=== PATIENT | female | born 1970 | race Caucasian/White ===

== ENCOUNTER → 2017-11-06 10:13 | Outpatient (CLI) | payer BC, SELFPAY ==
--- NOTE | 2017-11-06 10:17 | BI_ITS ---
MAMMOGRAPHY - BILATERAL SCREENING REASON FOR EXAM: Female, 47 years old. Routine annual screening examination. PERTINENT HISTORY: Non-contributory. TECHNIQUE: Digital bilateral breast brandon (3D mammographic acquisition) in the CC and MLO projections. 2-D mediolateral oblique (MLO) and craniocaudad (CC) views of both breasts were obtained. CAD: Full Field Digital Mammography with Computer Added Detection was performed. COMPARISON: Comparison is made with prior examination dated November 22, 2014 and April 04, 2012. FINDINGS: Breast Composition: The breasts are almost entirely fatty. There are no dominant masses or suspicious calcifications. Stable small benign-appearing bilateral axillary lymph nodes. No other significant abnormalities are identified. There has been no significant change since the prior study. BI/SCREENING MAMM (CAD), BILAT IMPRESSION: Stable bilateral screening mammogram. Yearly follow-up mammogram recommended. (A) ASSESSMENT CATEGORY: BIRADS Category 2: Benign. A letter regarding these results will be sent to the patient by the facility within 30 days. Approximately 10% of breast cancers are not detected by mammography. A normal mammogram should not delay biopsy of a clinically suspicious abnormality. [id number] Electronically Signed: Todd Conrad MD at 13:26 EDT Tel [phone], Service support ,
== END ==
PROVIDERS: Family Provider Nurse Practitioner Family; PCP Nurse Practitioner Family; Visit Provider Nurse Practitioner Family
DX: Z12.31 Encounter for screening mammogram for malignant neoplasm of breast (principal)
CPT/HCPCS: 77063; 77067

== ENCOUNTER → 2019-04-15 14:35 | Outpatient (CLI) | payer BC, SELFPAY ==
--- NOTE | 2019-04-15 14:41 | BI_ITS ---
MAMMOGRAPHY - BILATERAL SCREENING REASON FOR EXAM: Female, 49 years old. Routine annual screening examination. PERTINENT HISTORY: Non-contributory. TECHNIQUE: Digital bilateral breast sheila (3D mammographic acquisition) in the CC and MLO projections. 2-D mediolateral oblique (MLO) and craniocaudad (CC) views of both breasts were obtained. CAD: Full Field Digital Mammography with Computer Added Detection was performed. COMPARISON: Comparison is made with prior examination dated November 06, 2017 and November 22, 2014. FINDINGS: Breast Composition: There are scattered areas of fibroglandular density. There are no dominant masses or suspicious calcifications. Canal is evidence of asymmetry of the breast density in the upper outer quadrant of the left breast as compared to the right side. The patient has noticed changes to the skin at that site. Correlation with ultrasound is recommended. Stable benign-appearing bilateral axillary lymph nodes. No other significant abnormalities are identified. BI/SCREEN MAMM (CAD) W/SHEILA BILAT IMPRESSION: Asymmetrical density is now seen in the upper outer quadrant of the left breast as described. Correlation with ultrasound is recommended for further evaluation. ASSESSMENT CATEGORY: BIRADS Category 0: Incomplete. Need additional imaging evaluation. A letter regarding these results will be sent to the patient by the facility within 30 days. Approximately 10% of breast cancers are not detected by mammography. A normal mammogram should not delay biopsy of a clinically suspicious abnormality. [id number] Electronically Signed: Todd Conrad, at 12:05 EST , Service support ,
== END ==
PROVIDERS: PCP Nurse Practitioner Family; Referring Provider Nurse Practitioner Family; Visit Provider Nurse Practitioner Family
DX: Z12.31 Encounter for screening mammogram for malignant neoplasm of breast (principal)
CPT/HCPCS: 77063; 77067

== ENCOUNTER → 2019-04-17 14:09 | Outpatient (CLI) | payer BC, SELFPAY ==
--- NOTE | 2019-04-17 15:06 | US_ITS ---
STUDY: ULTRASOUND BREAST - LEFT REASON FOR EXAM: Female, 49 years old. TECHNIQUE: Axial and longitudinal images of the LEFT breast were performed with a high resolution ultrasound transducer. # OF IMAGES: 48 COMPARISON: Previously mammogram obtained on 04/15/2019 FINDINGS: LEFT Breast: A targeted left breast mammogram was performed of the superior lateral aspect of the left breast. Comparison is made to the recent mammogram obtained on 04/15/2019. Normal breast parenchyma is identified on this targeted left breast ultrasound. Some scattered benign-appearing nondilated ducts are seen in the superior lateral aspect of the left breast. No shadowing masses or lesions are seen. US/Breast Limited Unilateral IMPRESSION: Normal targeted left breast ultrasound ASSESSMENT CATEGORY: FINAL ASSESSMENT: BI-RAD CATEGORY I (NEGATIVE) YEARLY MAMMOGRAPHY RECOMMENDED Electronically Signed: Dale De Oliveira, at 9:04 EST Tel , Service support ,
== END ==
PROVIDERS: PCP Nurse Practitioner Family; Referring Provider Nurse Practitioner Family; Visit Provider Nurse Practitioner Family
DX: N64.59 Other signs and symptoms in breast (principal)
CPT/HCPCS: 76641; 76642

== ENCOUNTER → 2021-02-20 | Outpatient (CLI) | payer BC, SELFPAY ==
[2021-02-20 12:31] LABS: Erythrocyte Sedimentation Rate 5 mm/hr (0-30)
[2021-02-20 12:38] LABS: CPK Total, Creatine Kinase 68 U/L (26-192); CRP, High Sensitivity Cardiac 0.95 mg/L; Troponin-I HS 6 pg/mL (3.0-54.0)
[2021-02-22 09:45] LABS: Myoglobin, Serum < 21 ng/mL (25-58)
== END | disposition home or self-care (01) ==
LOC: LABSPEC 12:06
PROVIDERS: Visit Provider Nurse Practitioner
DX: R07.89 Other chest pain (principal)
CPT/HCPCS: 82550; 83874; 84484; 85652; 86141

== ENCOUNTER → 2022-07-12 | Outpatient (CLI) | payer BC, SELFPAY ==
--- NOTE | 2022-07-12 08:23 | BI_ITS ---
MAMMOGRAPHY - BILATERAL SCREENING REASON FOR EXAM: Female, 52 years old. Routine annual screening examination. PERTINENT HISTORY: Non-contributory. TECHNIQUE: Digital bilateral breast sheila (3D mammographic acquisition) in the CC and MLO projections. 2-D mediolateral oblique (MLO) and craniocaudad (CC) views of both breasts were obtained. CAD: Full Field Digital Mammography with Computer Added Detection was performed. COMPARISON: Comparison is made with prior examination dated April 15, 2019 and November 06, 2017. FINDINGS: Breast Composition: There are scattered areas of fibroglandular density. There are no dominant masses or suspicious calcifications. Stable asymmetry of breast tissue with more breast tissue is seen in the upper-outer quadrant left breast as compared to the right side. Stable small benign-appearing bilateral axillary lymph nodes. No other significant abnormalities are identified. There has been no significant change since the prior study. BI/SCRN MAMM (CAD)W/SHEILA BILAT IMPRESSION: Stable bilateral screening mammogram. Yearly follow-up mammogram recommended. (A) ASSESSMENT CATEGORY: BIRADS Category 2: Benign. A letter regarding these results will be sent to the patient by the facility within 30 days. Approximately 10% of breast cancers are not detected by mammography. A normal mammogram should not delay biopsy of a clinically suspicious abnormality. [id number] Electronically Signed: Todd Conrad MD at 9:35 EDT ,
== END | disposition home or self-care (01) ==
LOC: OPBI 08:21
PROVIDERS: PCP Nurse Practitioner Family; Referring Provider Nurse Practitioner Family; Visit Provider Nurse Practitioner Family
DX: Z12.31 Encounter for screening mammogram for malignant neoplasm of breast (principal)
CPT/HCPCS: 77063; 77067

== ENCOUNTER → 2023-05-27 | Outpatient (CLI) | payer BC, SELFPAY ==
--- NOTE | 2023-05-27 06:41 | MRI_ITS ---
HISTORY: worsening headaches. TECHNIQUE: Multiplanar and multisequence MR images of the brain were obtained before and after the intravenous administration of 20 mL Clariscan. 345 images. COMPARISON: None. FINDINGS: BRAIN PARENCHYMA: No significant signal abnormality or enhancing lesion in the brain parenchyma. No abnormal focus of restricted diffusion to suggest acute infarct. No acute intracranial hemorrhage identified. CSF SPACES: Cerebral ventricles, cortical sulci, and other extra-axial CSF spaces within normal limits in size for age. No significant midline shift or other mass effect.No extra-axial fluid collection. VASCULAR SYSTEM: Major intracranial flow voids are maintained. PARANASAL SINUSES AND MASTOID AIR CELLS: No significant air fluid levels. ORBITS: Symmetric contents. MRI/Brain W/WO Contrast IMPRESSION: Unremarkable examination. No evidence for significant signal abnormality in the brain or enhancing intracranial mass. Electronically Signed: Fern Ochoa MD at 9:49 EDT ,
--- NOTE | 2023-05-27 06:41 | MRI_ITS ---
HISTORY: cervical stenosis of spine. TECHNIQUE: Multiplanar and multisequence MR images of the cervical spine were obtained without contrast. 257 images. COMPARISON: None. FINDINGS: VERTEBRAE: Vertebral body heights maintained. Mild degenerative bone marrow endplate changes of C5-6 and C6-7. VERTEBRAL ALIGNMENT: Straightening of the cervical lordosis without anterior or posterior subluxation. SPINAL CORD: Cervical cord signal and morphology within normal limits. SOFT TISSUES: No prevertebral fluid collection. INTERVERTEBRAL DISCS: C2-3, C3-4: No significant posterior protrusion, central canal stenosis, or foraminal narrowing. C4-5: Mild central disc protrusion resulting in minimal narrowing of the thecal sac . No significant foraminal narrowing. C5-6, C6-7: Mild posterior disc bulge osteophyte complexes resulting in mild central canal stenosis. Left paracentral component at C6-7 resulting in left traversing nerve root abutment. No significant foraminal narrowing. C7-T1: No significant posterior disc protrusion, central canal stenosis, or foraminal narrowing. MRI/Spine Cervical (Routine) IMPRESSION: Mild degenerative disc disease of C5-6 and C6-7 resulting in mild spinal canal stenosis. Electronically Signed: Fern Ochoa MD at 9:19 EDT ,
[2023-05-27 07:15] LABS: CREATININE FINGERSTICK < 1.0 mg/dL (0.55-1.02); EGFR FINGERSTICK > 60.0000 mL/min (>60)
== END | disposition home or self-care (01) ==
PROVIDERS: PCP Internal Medicine; Referring Provider Internal Medicine; Visit Provider Internal Medicine
DX: R51.9 Headache, unspecified (principal); M48.02 Spinal stenosis, cervical region
CPT/HCPCS: 70553; 72141; A9575

== ENCOUNTER 2024-01-30 11:21 | Outpatient (RCR) | payer BC, SELFPAY ==
--- NOTE | 2024-01-30 12:11 | HP.PTEVAL_ITS ---
Patient's Visit Information Visit Information Visit Information: DIANA LEE is a 53 year old F referred to Physical Therapy by Kirstin Rg, [facility] with a diagnosis of vertigo. Date of Evaluation: 01/30/24 Physical Therapist: Claude Rg, DPT, OCS, CSCS Visit Plan Frequency: 1-2x /Week Duration: 4-6 Weeks Plan: 1-2x/week for 2-6 weeks as needed for : IE R dakota adn educated on head turns 10x and head nods 10x 6x/day Next session progress head movements, consider VOR, check R positional and consider BD. Subjective Subjective: I am dizzy. Started taking ozempic for weight loss and had allergic reaction and ended up in ER 3x. Has been dizzy for 8 days insidiously. Woke up that way. Feels goofy in head and cannot think clearly. Spins, no spinning if keeps head still. Wooshes of dizzyness with head movement. Feels off kilter. No falls, pass out 3x with the ozempic possibly being the cause with allergy. Sleep is not a problem, all she wants to do is sleep. 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 Misses some days due to not feeling good with head moving around. Basic ADLs done I but can be miserable. No aD needed but might have at first. 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 Overall slightly better than 8 days ago, still cannot drive. Objective Objective: Walks slow and hesitant back to PT area, hesitant to move head. cervical aROm is hesitant but able without pain(had recent neck injections) UE AROm WFL adn sensation wNL to gross light touch. - B hallpike juliette and roll test, but asymmetrically dizzy with head to R side, treateed with R modified dakota. Oculomotr: no nystagmus with gaze or head shake. - skew eye deviation - ocular tilt slight + R head thrust. head shake does make dizzy but worse with head nods. pursuit and saccades are good. VOR is symptomatic briefly H and V. Balance/Special Test Scores Functional Gait Assessment Score: 26 % Disability: 13.3400 CATSIB Score (Max score 120 seconds): 98 Dizziness Score: 86 Goals Goal 1:: Pt feel dizziness 90% better and manageable Goal Time Frame: 4-6 Weeks Goal 2:: 30/30 FGA Goal Time Frame: 4-6 Weeks Goal 3:: Lie down in bed without symptoms Goal Time Frame: 4-6 Weeks Goal 4:: DHI score 10 or less Goal Time Frame: 4-6 Weeks Rehabilitation Potential Physical Therapy Diagnosis: dizziness with position changes of head limiting function. Rehabilitation Potential: Good Anticipated Interventions Patient/Client Instruction: Educate patient on: Condition, Plan of Care and Risk Factors For the Purpose of:: To improve nutrient delivery to tissue, To improve muscle performance and motor function and To increase tolerance to activity/condition/position Therapeutic Exercise to Include: Balance training Comment: adaptation and positional exercises For the Purpose of:: To increase ROM, To improve nutrient delivery to tissue and To increase tolerance to activity/condition/position Text: Thank you for the opportunity to evaluate your patient. For Medicare and Medicare HMO plans, please review the plan of care and approve it. It will need to be FAXED BACK to us at [phone] for Medicare purposes. For Medicare only, by signing this I certify the plan of care. Please let me know if there are questions or concerns regarding this plan of care. Physician Signature:___ Date:
--- NOTE | 2024-04-29 07:59 | HP.PT.NRP ---
Patient Information Patient Information: DIANA LEE was seen in my office for initial evaluation on 01/30/24. The following Plan of Care was established for this patient: POC Established Initial Frequency: 1-2x /Week Initial Duration: 4-6 Weeks Anticipated Interventions Patient/Client Instruction: Educate patient on: Condition, Plan of Care and Risk Factors For the Purpose of:: To improve nutrient delivery to tissue, To improve muscle performance and motor function and To increase tolerance to activity/condition/position Therapeutic Exercise to Include: Balance training For the Purpose of:: To increase ROM, To improve nutrient delivery to tissue and To increase tolerance to activity/condition/position Last Seen Last Seen: This patient was last seen in our office 01/30/24. Pertinent comments regarding their Physical therapy will appear below: Pt seen for IE and treatment and POC established. Did not return for any further visits after initial positional treatment. At this point, it has been over 3 months and I will discontinue due to nonattendance. At this point I will be discontinuing this patient from physical therapy. I would be happy to see this patient again in the future if found appropriate by the physician. Thank you! Claude Rg, DPT, OCS, CSCS Balance/Gait/Functional tests Balance/Special Test Scores Functional Gait Assessment Score: 26 % Disability: 13.3400 CATSIB Score (Max score 120 seconds): 98 Dizziness Score: 86
== END 2024-01-30 19:00 | disposition home or self-care (01) ==
LOC: PT 11:21
PROVIDERS: PCP Internal Medicine; Referring Provider Nurse Practitioner Family; Visit Provider Nurse Practitioner Family
DX: H81.399 Other peripheral vertigo, unspecified ear (principal); R42 Dizziness and giddiness
CPT/HCPCS: 97161

== ENCOUNTER 2024-11-19 17:17 | Emergency (ER) | payer BC, SELFPAY ==
[2024-11-19 17:20] VITALS: BP 159/94; PULSE 89; RESP 18; TEMP 36.9; O2SAT 100; BMI 38.0
[2024-11-19] MEDS: 0.9% Normal Saline (1000mL) 1,000 ML 1000 ML IV (18:12)
--- OUTSIDE RECORDS SUMMARY | 2024-11-19 18:12 | XMS RPT_ITS | CCD ---
Author Organization [facility] Care Team Providers Care Cleaner Touch Up Worker Name Role Phone Anca Villatoro CNP Unavailable DO NOT USE Unavailable Doug Huffman MD Unavailable Stephy Wilson Unavailable Isaias Holliday MD Unavailable Sandee Osborne LPN Unavailable Unavailable Unavailable Unavailable Anca Villatoro Unavailable Howard Sorensen LPN Unavailable Unavailable Kirstin Rg CNP Unavailable [phone] Emerita OMER, Kayela Unavailable Unavailable Paris MESSER, Mohinedr Gil Unavailable [phone] Kirstin Rg CNP Unavailable Hunter MESSER, Omar Unavailable Unavailable Unavailable Ashtyn Trammell LPN Unavailable Unavailable Doug Huffman MD Unavailable Kirstin Rg CNP Attending Unavailable Anca Villatoro Referring Unavailable Kirstin Rg CNP Consulting Unavailable Shraddha Holley DO Unavailable ANTONIETTA Rg Primary Care Provider ANTONIETTA Rg Referring Provider [phone] ANTONIETTA Lockwood Attending Provider Jacob SIMMONS, COREY-Dimitrios OMER Primary Care Provider NGOZI LLANES Attending Unavailable DIMITRIOS JAMES Primary Care Unavailable LUCIE PARTIDA DO Admitting Unavailable DIDUR, LUCIE DO Attending Unavailable LUCIE PARTIDA DO Primary Care Unavailable COLE PUGA Admitting Unavailable COLE PUGA Attending Unavailable COLE PUGA Primary Care Unavailable MANDY BELL Consulting Unavailable PROVIDER, UNKNOWN Consulting Unavailable PROVIDER, UNKNOWN Consulting Unavailable PROVIDER, UNKNOWN Consulting Unavailable LUCIE PARTIDA DO Admitting Unavailable LUCIE PARTIDA DO Attending Unavailable LUCIE PARTIDA DO Primary Care Unavailable MANDY BELL Consulting Unavailable PROVIDER, UNKNOWN Consulting Unavailable PROVIDER, UNKNOWN Consulting Unavailable PROVIDER, UNKNOWN Consulting Unavailable Isael James Attending Unavailable Shraddha Holley Primary Care Unavailable Shraddha Holley Referring Unavailable Kirstin Rg Referring Unavailable Shraddha Holley Primary Care Unavailable Kirstin Rg Attending Unavailable Allergies Allergy Classification Reported Allergen(s) Allergy Type Date of Onset Reaction(s) Facility (1 source) semaglutide Drug allergy (disorder) 11-16-2024 [facility] Medications Current Medications Medication Drug Class(es) Dates Sig (Normalized) Sig (Original) amLODIPine 2.5 mg oral tablet (3 sources) Dihydropyridine Calcium Channel Dionisio Start: 04-20-2023 Amlodipine Active MG PO April 20, 2023 1:00am Start: 04-03-2023 take 1 tablet by pinky th once daily amLODIPine (Norvasc) 2.5 mg tablet Take 1 tablet (2.5 mg) by mouth once daily. 04/03/2023 Active Start: 09-28-2022 take 1 tablet by pinky th once daily amLODIPine 2.5 mg oral tablet 1 Tablet daily for 30 days Quantity: 30 {Tablet} Refills: 3 Ordered: 28-Sep-2022 Kirstin Rg CNP Start : 28-Sep-2022 Active cholecalciferol 0.125 mg oral capsule (20 sources) Vitamin D Start: 04-20-2023 take 125 ug by mouth once daily Cholecalciferol (Vitamin D3) Active 125 MCG PO DAILY April 20, 2023 1:00am take 1 tablet by mouth every wee k cholecalciferol (Vitamin D-3) 5,000 Units tablet Take 1 tablet (5,000 Units) by mouth once a week. Active take 1 tablet by mouth once vaibhav y VITAMIN D3, 1000UNIT (Oral Tablet) 1 qd (1000 UNIT) Active take 1 capsule by mouth once pj ly D3 SUPER STRENGTH, 2000UNIT (Oral Capsule) 1 qd (2000 UNIT) Inactive escitalopram 20 mg oral tablet (20 sources) Serotonin Reuptake Inhibitor Start: 04-20-2023 Escitalopram Oxalate Active MG PO April 20, 2023 1:00am Start: 02-23-2022 take 1 tablet by pinky th once daily escitalopram oxalate 20 mg oral tablet 1 Tablet daily for 0 days Quantity: 90 {Tablet} Refills: 1 Ordered: 23-Feb-2022 Shraddha Holley DO Leydi Shraddha SADLER Start : 23-Feb-2022 Active Start: 03-06-2021 take 1 tablet by pinky th once daily Escitalopram Oxalate 20 MG Oral Tablet 1 Tablet daily for 0 days Quantity: 90 {Tablet} Refills: 1 Ordered: 06-Mar-2021 Anca Villatoro Start : 06-Mar-2021 Active estradiol 1 mg oral tablet (7 sources) Estrogen Start: 04-20-2023 Estradiol Acti ve MG PO April 20, 2023 1:00am Start: 08-10-2022 take 1 tablet by pinky once daily estradioL 1 mg oral tablet 1 Tablet daily for 0 days Quantity: 30 {Tablet} Refills: 5 Ordered: 10-Aug-2022 Ashtyn Trammell LPN Start : 10-Aug-2022 Active End: 08-10-2022 estradioL 0.01% (0.1 mg/gram ) vaginal cream twice weekly (0.01 % (0.1 mg/) End : 10-Aug-2022 Discontinued Lactobacillus Combination No.9 (Adult 50 Plus Probiotic) 4 billion cell capsule (1 source) Start: 04-20-2023 take 4 capsules by mouth once daily Lactobacillus Combination No.9 (Adult 50 Plus Probiotic) 4 billion cell capsule Active 4000 MMU CELLS PO DAILY April 20, 2023 1:00am administer with a meal levothyroxine sodium 0.025 mg oral tablet (20 sources) l-Thyrox ine Start: 04-20-2023 Levothyroxine Active MCG PO April 20, 2023 1:00am Start: 09-28-2022 take 1 capsule by mo [facility] once daily levothyroxine 25 mcg oral capsule 1 (one) capsule daily for 90 days Quantity: 90 {Capsule} Refills: 3 Ordered: 28-Sep-2022 Kirstin Rg CNP Start : 28-Sep-2022 Active Start: 09-26-2022 take 1 capsule by mo [facility] once daily levothyroxine 25 mcg oral capsule 1 (one) capsule daily for 30 days Quantity: 30 {Capsule} Refills: 0 Ordered: 26-Sep-2022 Kirstin Rg CNP Start : 26-Sep-2022 Active Start: 07-09-2022 take 1 capsule by [facility] once daily levothyroxine 25 mcg oral capsule 1 (one) capsule daily for 30 days Quantity: 30 {Capsule} Refills: 2 Ordered: 09-Jul-2022 Slarb THRESHING DEPARTMENT SUPERVISOR, Ashtyn Start : 09-Jul-2022 Active Start: 10-06-2021 End: 05-11-2022 take 1 tablet by mouth once daily Euthyrox 125 mcg oral tablet 1 (one) Tablet ONCE A DAY for 90 days Quantity: 90 {Tablet} Refills: 0 Ordered: 11-May-2022 Slarb THRESHING DEPARTMENT SUPERVISOR, Ashtyn Start : 06-Oct-2021 End : 11-May-2022 Inactive Start: 03-06-2021 End: 06-04-2021 take 1 tablet by mouth once daily Euthyrox 125 MCG Oral Tablet 1 (one) Tablet ONCE A DAY for 90 days Quantity: 90 {Tablet} Refills: 0 Ordered: 06-Mar-2021 LauraAnca dawn Start : 06-Mar-2021 End : 04-Jun-2021 Inactive Start: 09-12-2012 End: 09-12-2012 take 1 tablet by mouth once daily SYNTHROID, 75MCG (Oral Tablet) 1 Tablet daily for 0 days Quantity: 30 {Tablet} Refills: 6 Ordered: 12-Sep-2012 Mohinder Wetzel MD Start : 12-Sep-2012 End : 12-Sep-2012 Discontinued levothyroxine (S ynthroid, Levoxyl) 125 mcg tablet once every 24 hours. Active Lisinopril (6 sources) Angiotensin Converting Enzyme Inhibitor Start: 04-20-2023 Lisinopril Active MG PO April 20, 2023 1:00am Start: 04-03-2023 take 1 tablet by pinky once daily lisinopril 40 mg tablet Take 1 tablet (40 mg) by mouth once daily. 04/03/2023 Active Start: 08-10-2022 take 1 tablet by pinky th once daily lisinopriL 40 mg oral tablet 1 Tablet daily for 0 days Quantity: 30 {Tablet} Refills: 5 Ordered: 10-Aug-2022 Kirstin Rg CNP Start : 10-Aug-2022 Active Comments: new dose Start: 07-06-2022 take 1 tablet by pinky th once daily lisinopriL 20 mg oral tablet 1 Tablet daily for 0 days Quantity: 30 {Tablet} Refills: 3 Ordered: 06-Jul-2022 Kirstin Rg CNP Start : 06-Jul-2022 Active Comment on above: new dose multivitamin with minerals iron-free (Complete MV Adult 50 Plus) (1 source) multivitamin wit h minerals iron-free (Complete MV Adult 50 Plus) once every 24 hours. Active tiZANidine 4 mg oral tablet (1 source) Central alpha-2 Adrenergic Agonist Start: 05-16-2023 tiZANidine (Zanaflex) 4 mg tablet TAKE 1/2 (ONE-HALF) TO 1 & 1/2 (ONE & ONE-HALF) TABLETS BY MOUTH THREE TIMES DAILY NEEDED FOR MUSCLE SPASM, TIGHTNESS OR HEADACHE 05/16/2023 Active Completed/Discontinued Medications Medication Drug Class(es) Dates Sig (Normalized) Sig (Original) acetaminophen 325 mg oral tablet (19 sources) Start: 09-14-2013 End: 05-17-2014 take 1 tablet by mouth every eight hours as needed TYLENOL, 325MG (Oral Tablet) 1 (one) Tablet Tablet q8hrs prn for 0 days Quantity: 30 {Tablet} Refills: 0 Ordered: 17-May-2014 PETE Del Valle LPN Start : 14-Sep-2013 End : 17-May-2014 Inactive acetaminophen 325 mg / butalbital 50 mg / caffeine 40 mg oral tablet (20 sources) Barbiturate, Central Nervous System Stimulant, Methylxanthine Start: 05-11-2022 butalbital-aceta minophen-caff 50-325-40 mg oral tablet uad Tablet prn as directed for migaine for 0 days Quantity: 30 {Tablet} Refills: 1 Ordered: 18-May-2022 Kirstin Rg CNP Start : 18-May-2022 Active Comments: thirty Start: 12-26-2020 Butalbital-APA P-Caffeine 50-325-40 MG Oral Tablet uad Tablet prn as directed for migaine for 0 days Quantity: 30 {Tablet} Refills: 1 Ordered: 26-Dec-2020 Anca Villatoro Start : 26-Dec-2020 Active Comments: thirty Start: 02-25-2013 Butalbital-[place] taminophen-Caff Active 1 TABLET PO NEEDED February 25, 2013 1:00am Start: 08-08-2012 End: 01-26-2013 take 1 tablet by mouth once as needed FIORICET, 50-325-40MG (Oral Tablet) 1 Tablet with headache prn for 0 days Quantity: 20 {Tablet} Refills: 0 Ordered: 08-Aug-2012 Mohinder Wetzel MD Start : 08-Aug-2012 End : 26-Jan-2013 Discontinued Comments: This order discontinued per [facility]. Comment on above: thirty This order discontin ued per [employer]. [id number] 200 actuat albuterol 0.09 mg/actuat metered dose inhaler (19 sources) beta2-Adrenergic Agonist Start: 021 End: 022 take 2 puff(s) by inhalation three times daily as needed ProAir HFA 108 (90 Base) MCG/ACT Inhalation Aerosol Solution 2 (two) Puff tid prn for 0 days Quantity: 1 {Each} Refills: 0 Ordered: 29-Aug-2021 Emerita OMER Cornelialester Start : 20-Feb-2021 End : 29-Aug-2021 Inactive ALPRAZolam 0.5 mg oral tablet (19 sources) Benzodiazepine XANAX, 0.5MG (Oral Tablet) 1 prn for panic attack/anxiety (0.5 MG) Inactive amoxicillin 875 mg / clavulanate 125 mg oral tablet (19 sources) Penicillin-class Antibacterial Start: 014 End: 015 take 1 tablet by mouth twice daily AUGMENTIN, 875-125MG (Oral Tablet) 1 Tablet Tablet bid for 0 days Quantity: 20 {Tablet} Refills: 0 Ordered: 20-Apr-2014 Cari Ochoa CMA Start : 17-Sep-2013 End : 20-Apr-2014 Inactive ascorbic acid 1000 mg extended release oral tablet (19 sources) Vitamin C take 1 tablet by mouth once daily VITAMIN C ER, 1000MG (Oral Tablet Extended Release) 1 qd (1000 MG) Inactive B COMPLEX 100 TR (Oral Tablet Extended Release) (19 sources) take 1 tablet by mouth once daily B COMPLEX 100 TR (Oral Tablet Extended Release) 1 qd Inactive bifidobacterium infantis 4 mg oral capsule (19 sources) take 1 capsule by mouth once daily ALIGN (Oral Capsule) 1 qd Inactive busPIRone hydrochloride 5 mg oral tablet (20 sources) Start: 014 End: 015 take 0.5 tablet by mouth in the morning, then take 1 tablet by mouth at bedtime BUSPIRONE HCL, 5MG (Oral Tablet) uad Tablet Tablet 1/2 in am 1 at hs for 0 days Quantity: 30 {Tablet} Refills: 0 Ordered: 17-May-2014 PETE Del Valle LPN Start : 19-Mar-2013 End : 17-May-2014 Inactive Start: 01-26-2013 End: 02-27-2013 take 1 tablet by mouth twice daily, then take 1 tablet by mouth twice daily BUSPIRONE HCL, 10MG (Oral Tablet) 1 Tablet 1/2 bid for 1 week than 1 bid for 0 days Quantity: 60 {Tablet} Refills: 5 Ordered: 27-Feb-2013 PETE Del Valle LPN Start : 26-Jan-2013 End : 27-Feb-2013 Inactive Cholestol Gold (8 sources) Cholestol Gold 2 qd Inactive ciprofloxacin 500 mg oral tablet (20 sources) Quinolone Antimicrobial Start: 2 End: 2 take 1 tablet by mouth twice daily Cipro 500 MG Oral Tablet 1 (one) Tablet bid for 0 days Quantity: 20 {Tablet} Refills: 0 Ordered: 06-Oct-2021 Howard Sorensen LPN Start : 29-Aug-2021 End : 06-Oct-2021 Inactive Start: 09-14-2013 End: 09-24-2013 CIPROFLOXACIN HCL, 0.2% (Kristen c Solution) 3 (three) Metric Drop bid for 10 days Quantity: 1 {Bottle} Refills: 0 Ordered: 14-Sep-2013 Anca Villatoro Start : 14-Sep-2013 End : 24-Sep-2013 Inactive COq10 (1 source) COq10 Active cyclobenzaprine hydrochloride 10 mg oral tablet (20 sources) Muscle Relaxant Start: 03-06-2021 End: 10-06-2021 Cyclobenzaprine HCl 10 MG Oral Tablet 1 (one) Tablet at night for 0 days Quantity: 30 {Tablet} Refills: 4 Ordered: 06-Oct-2021 Howard Sorensen LPN Start : 06-Mar-2021 End : 06-Oct-2021 Inactive Start: 05-04-2013 End: 05-17-2014 take 1 tablet by mouth three times daily CYCLOBENZAPRINE HCL, 5MG (Oral Tablet) 1 (one) Tablet Tablet tid for 0 days Quantity: 30 {Tablet} Refills: 0 Ordered: 17-May-2014 PETE Del Valle LPN Start : 04-May-2013 End : 17-May-2014 Inactive Comments: 05-04-13 called to [facility] ph[facility] Comment on above: 05-04-13 called to [facility] A[facility] phan dexamethasone 1 mg oral tablet (19 sources) Corticosteroid Start: 2020 End: 2020 take 1 tablet by mouth every week Dexamethasone 1 MG Oral Tablet 1 (one) Tablet once a week for 0 days Quantity: 1 {Tablet} Refills: 0 Ordered: 20-Feb-2021 Radha Rousseau MA Start : 06-Jan-2021 End : 20-Feb-2021 Inactive doxycycline hyclate 100 mg oral capsule (1 source) Tetracycline-class Drug Start: 2023 End: 2023 take 100 mg by mouth twice daily Doxycycline Hyclate Discontinued 100 MG PO TWICE A DAY 14 12April 20, 2023 1:00am April 30, 2023 1:04am glutathione 50 mg oral tablet (19 sources) take 1 tablet by mouth twice daily GLUTATHIONE, 50MG (Oral Tablet) 1 bid (50 MG) Inactive hydrALAZINE hydrochloride 10 mg oral tablet (3 sources) Arteriolar Vasodilator Start: 2022 take 1 tablet by mouth every six hours as needed hydrALAZINE 10 mg oral tablet 1 (one) tablet every 6 hours as needed elevated blood pressure for 0 days Quantity: 30 {Tablet} Refills: 0 Ordered: 10-Aug-2022 Ashtyn Trammell LPN Start : 10-Aug-2022 Active Comments: Medication taken as needed. Comment on above: Medication taken as needed. hydroCHLOROthiazide 25 mg oral tablet (20 sources) Thiazide Diuretic Start: 2013 End: 2023 take 1 tablet by mouth once daily HYDROCHLOROTHIAZIDE, 25MG (Oral Tablet) 1 Tablet qd for 0 days Quantity: 90 {Tablet} Refills: 0 Ordered: 16-Aug-2014 PETE Del Valle LPN Start : 06-Jul-2014 End : 16-Aug-2014 Inactive krill oil 300 mg oral capsule (19 sources) take 1 capsule by mouth once daily KRILL OIL OMEGA-3, 300MG (Oral Capsule) 1 qd (300 MG) Inactive L-GLUTAMINE (Powder) (19 sources) L-GLUTAMINE (Pow treasure) 5 grams qd at lunch Inactive ammonium lactate 120 mg/ml topical lotion (19 sources) Start: 2012 End: 2012 LAC-HYDRIN, 12% (External Lotion) 1 Lotion affected area daily for 0 days Quantity: 1 {Lotion} Refills: 0 Ordered: 24-Oct-2012 PETE Del Valle LPN Start : 14-Apr-2012 End : 24-Oct-2012 Inactive meloxicam 15 mg oral tablet (19 sources) Nonsteroidal Anti-inflammatory Drug Start: 2013 End: 2013 take 1 tablet by mouth once daily MOBIC, 15MG (Oral Tablet) 1 (one) Tablet daily for 0 days Quantity: 30 {Tablet} Refills: 0 Ordered: 06-Aug-2013 PETE Del Valle LPN Start : 28-Apr-2013 End : 06-Aug-2013 Inactive OMEGA 3-6-9 COMPLEX (Oral Capsule) (19 sources) take 1 capsule by mouth once daily OMEGA 3-6-9 COMPLEX (Oral Capsule) 1 qd Inactive omeprazole 20 mg delayed release oral tablet (19 sources) Proton Pump Inhibitor Start: 2020 End: 2021 take 1 tablet by mouth once daily Omeprazole 20 MG Oral Tablet Delayed Release 1 (one) Tablet daily for 0 days Quantity: 30 {Tablet} Refills: 0 Ordered: 06-Oct-2021 Howard Sorensen LPN Start : 20-Feb-2021 End : 06-Oct-2021 Inactive ondansetron 4 mg oral tablet (1 source) Serotonin-3 Receptor Antagonist Start: 2022 take 1 tablet by mouth twice daily as needed for nausea ondansetron HCL 4 mg oral tablet 1 (one) tablet twice daily as needed for nausea for 0 days Quantity: 30 {Tablet} Refills: 1 Ordered: 28-Sep-2022 Arcenio NEGRAKirstin Start : 28-Sep-2022 Active Comments: Medication taken as needed. Comment on above: Medication taken as needed. phenazopyridine hydrochloride 99.5 mg oral tablet (15 sources) take 1 mg by mouth once daily Phenazopyridine HCl 99.5 MG Oral Tablet Once a day. (99.5 MG) Inactive pramipexole dihydrochloride 0.125 mg oral tablet (20 sources) Nonergot Dopamine Agonist Start: 2020 End: 2021 take 1 tablet by mouth once daily at bedtime Pramipexole Dihydrochloride 0.125 MG Oral Tablet 1 (one) Tablet qhs for 0 days Quantity: 30 {Tablet} Refills: 1 Ordered: 06-Mar-2021 Sandee Osborne LPN Start : 20-Feb-2021 End : 06-Mar-2021 Inactive Start: 04-23-2014 End: 04-23-2014 take 1 tablet by mouth every twenty-four hours MIRAPEX ER, 1.5MG (Oral Tablet Extended Release 24 Hour) 1 (one) Tablet ER 24HR at night for 0 days Quantity: 30 {Tablet} Refills: 3 Ordered: 23-Apr-2014 Mohinder Wetzel MD Start : 23-Apr-2014 End : 23-Apr-2014 Inactive Comments: headache, vertigo, nausea Comment on above: headache, vertigo, n ausea pravastatin sodium 20 mg oral tablet (19 sources) HMG-CoA Reductase Inhibitor Start: 02-27-19 14 End: 02-27-19 14 take 1 tablet by mouth once daily PRAVACHOL, 20MG (Oral Tablet) 1 Tablet daily for 0 days Quantity: 30 {Tablet} Refills: 6 Ordered: 27-Feb-2013 Mohinder Wetzel MD Start : 27-Feb-2013 End : 27-Feb-2013 Inactive pregabalin 75 mg oral capsule (19 sources) Start: 05-05-19 14 End: 08-07-19 14 take 1 capsule by mouth twice daily LYRICA, 75MG (Oral Capsule) 1 (one) Capsule Capsule bid for 0 days Quantity: 60 {Capsule} Refills: 1 Ordered: 06-Aug-2013 PETE Del Valle LPN Start : 04-May-2013 End : 06-Aug-2013 Inactive Comments: 05-04-13 called to [facility] pahn Comment on above: 05-04-13 called to [facility] A[facility]ayo phan promethazine hydrochloride 25 mg oral tablet (19 sources) Phenothiazine Start: 11-26-19 End: 12-27-19 take 1 tablet by mouth every eight hours as needed Promethazine HCl 25 MG Oral Tablet 1 (one) Tablet Tablet q 8 hours prn for 0 days Quantity: 20 {Tablet} Refills: 0 Ordered: 26-Dec-2020 Radha Rousseau MA Start : 25-Nov-2014 End : 26-Dec-2020 Inactive Comments: twenty Comment on above: twenty quinapril 20 mg oral tablet (20 sources) Angiotensin Converting Enzyme Inhibitor Start: 06-30-19 End: 07-07-19 23 take 1 tablet by mouth once daily AccupriL 20 mg oral tablet 1 Tablet daily for 0 days Quantity: 30 {Tablet} Refills: 3 Ordered: 06-Jul-2022 Ashtyn Trammell LPN Start : 29-Jun-2022 End : 06-Jul-2022 Inactive Start: 02-25-2013 End: 04-20-2023 take 1 tablet by mouth once daily Accupril 40 MG Oral Tablet 1 Tablet qd for 0 days Quantity: 90 {Tablet} Refills: 1 Ordered: 26-Dec-2020 Radha Rousseau MA Start : 16-Mar-2015 End : 26-Dec-2020 Inactive SELENIUM ER, 200MCG (Oral Tablet Extended Release) (19 sources) take 1 tablet by mouth once daily SELENIUM ER, 200MCG (Oral Tablet Extended Release) 1 qd (200 MCG) Inactive sulfacetamide sodium 100 mg/ml ophthalmic solution (19 sources) Sulfonamide Antibacterial Start: 02-03-20 End: 12-27-19 21 Bleph-10 10 % Ophthalmic Solution 1-2 Metric Drop q2-3 h for 7 days Quantity: 1 {Bottle} Refills: 3 Ordered: 26-Dec-2020 Radha Rousseau MA Start : 02-Feb-2015 End : 26-Dec-2020 Inactive sulfamethoxazole 800 mg / trimethoprim 160 mg oral tablet (16 sources) Dihydrofolate Reductase Inhibitor Antibacterial, Sulfonamide Antimicrobial Start: 06-03-19 End: 06-07-19 22 take 1 tablet by mouth twice daily Bactrim DS 800-160 MG Oral Tablet 1 (one) Tablet bid for 4 days Quantity: 8 {Tablet} Refills: 0 Ordered: 02-Jun-2021 Anca Villatoro Start : 02-Jun-2021 End : 06-Jun-2021 Inactive Super Multidophilus-34 (8 sources) Super Multidophilus-34 1 qd Active thyroid (skilled nursing) 120 mg oral tablet (20 sources) Start: 02-25-19 End: 04-20-19 take 1 tablet by mouth once daily [place] Thyroid 120 MG Oral Tablet uad Tablet daily, hold on saturday and hold on saturday for 0 days Quantity: 90 {Tablet} Refills: 1 Ordered: 26-Dec-2020 Radha Rousseau MA Start : 02-Feb-2015 End : 26-Dec-2020 Inactive Start: 02-25-2013 End: 04-20-2023 take 1 tablet by mouth once daily Thyroid (Pork) ([place] Thyroid) 60 MG tablet Discontinued 60 MG PO DAILY February 25, 2013 1:00am April 20, 2023 12:49pm Problems Active Problems Problem Classification Problem Date Documented Date Episodic/Chronic Abdominal pain (20 sources) Abdominal pain; Translations: [Abdominal pain] Resolved: 5 06-13-2012 Episodic Comment on above: chronic. ? endometri osis ? scarring. ? anxiety ?bladder and colonscopasm. pelvic pain had hyst erectomy but has ovaries Allergic reactions (20 sources) Celiac disease; Translations: [Gluten-sensitive enteropathy] 03-06-2021 Chronic Anxiety disorders (20 sources) Anxiety; Translations: [Anxiety] 03-06-2021 Chronic Comment on above: stable now declines med changes , stablefluctuates, now caring for mother. declines med changes , feels very anxious lately. checking labs, adjusting other meds. f/u 1mofluctuates, now caring for mother. Disorders of lipid metabolism (20 sources) Hypercholesterolemia; Translations: [Hypercholesteremia] 03-06-2021 Chronic Comment on above: not able to take med s. recheck lipids high ldl so will stop med get from chiropactor. 10 yr CVD risk 1.5%. at this point no other meds but can try diet and RYR recheck lipids, cons ider ozempic if unable to tolerate medsprior: not able to take meds. recheck lipids high ldl so will stop med get from chiropactor. 10 yr CVD risk 1.5%. -at this point no other meds but can try diet and RYR Endometriosis (20 sources) Endometriosis of pelvic peritoneum; Translations: [Endometriosis of pelvis] Resolved: 5 11-15-2014 Chronic Comment on above: had EMMA Essential hypertension (20 sources) Benign hypertension; Translations: [Hypertension, benign] 03-06-2021 Chronic Comment on above: controlled controlled, monitor at home, report elevations. I will see her in a few months. significant elevatio n, adjust meds - increase lisinopril to 40mg qd 08/10/22started lisinopril 20mg qd 07/06/22 significant elevatio n, adjust meds - increase lisinopril to 40mg qd 08/10/22add amlodipine 2.5mg 8/u 2 wksstarted lisinopril 20mg qd 07/06/22 Genitourinary symptoms and ill-defined conditions (20 sources) Dysuria; Translations: [Dysuria] Resolved: 3 01-26-2013 Episodic Headache; including migraine (20 sources) Migraine; Translations: [Migraine] 03-06-2021 Chronic Comment on above: doing elio on autoi mmune paleo diet. not having as much. ;ess than 3-4 a month acute migraine x3-4 days fluctuating she states, does not want any other meds.doing elio on autoimmune paleo diet. not having as much. less than 3-4 a month Headache; including migraine (20 sources) Headache; Translations: [Headache] Resolved: 5 11-15-2014 Episodic Comment on above: sound like migraine. Immunizations and screening for infectious disease (20 sources) Needs influenza immunization; Translations: [Need for prophylactic vaccination and inoculation against influenza] 03-06-2021 Episodic Inflammation; infection of eye (except that caused by tuberculosis or sexually transmitteddisease) (20 sources) Conjunctivitis; Translations: [Conjunctivitis] 03-06-2021 Episodic Malaise and fatigue (20 sources) Fatigue; Translations: [Chronic fatigue] 03-06-2021 Chronic Comment on above: doing better with SP and clean eating. has been caring for her ill mother and up a lot and staying with her mom a lot.Was doing better with SP and clean eating. lifestyle modificati ons, lose weight. checking labs, she went off thyroid med since level was ok around Feb 2022.Was doing better with SP and clean eating but has not been taking care of self. going to try to start getting out and exercising since weather better. Menopausal disorders (20 sources) Atrophy of vagina; Translations: [Vaginal atrophy] 10-06-2021 Chronic Comment on above: wants pill form if p ossiblepainful intercourse, dryness, no pruritiswants to do natural form of estrogen (bioidentical) and not estriadol wants pill form if p ossibletry estroven OTC, we will discuss further if needed.wants to do natural form of estrogen (bioidentical) and not estriadol--painful intercourse, dryness, no pruritis Mood disorders (1 source) Depressive disorder; Translations: [Depression] 04-20-2023 Chronic Nausea and vomiting (20 sources) Nausea; Translations: [Nausea (Renamed from Nausea alone)] 03-06-2021 Episodic Comment on above: prn zofranwith migra ine Nonspecific chest pain (20 sources) Tight chest; Translations: [Chest tightness] 03-06-2021 Episodic Comment on above: chest tightness x 1 week with feeling of it going thru shoulder blades, stopped pramipexole and it went away, tried it again and it came back Nutritional deficiencies (20 sources) Vitamin D deficiency; Translations: [Vitamin D deficiency] 03-06-2021 Chronic Comment on above: D3 1000 iu daily but not consistent. Nutritional deficiencies (20 sources) Cobalamin deficiency; Translations: [Vitamin B12 deficiency] 03-06-2021 Episodic Comment on above: Does monthly injecti ons Other and unspecified benign neoplasm (20 sources) Polyp of colon; Translations: [Colon Polyp] 03-06-2021 Episodic Comment on above: was to get scope 201 3. been over 5 years. with all the stress still not make appt...told her very important must get because colon cancer risk will get back to [facility] Other and unspecified benign neoplasm (20 sources) Dysplastic nevus of skin; Translations: [Atypical nevus] Resolved: 5 11-15-2014 Episodic Comment on above: mother and sister jimenez ve melanoma and alot atyical moles needs skin screen Other circulatory disease (18 sources) Elevated blood pressure; Translations: [Elevated blood pressure reading] 05-17-2022 Episodic Comment on above: monitor at home, rep ort elevations. I will see her in a few months. Other connective tissue disease (20 sources) Fibromyalgia; Translations: [Fibromyalgia] 03-06-2021 Episodic Other connective tissue disease (2 sources) Muscle pain; Translations: [Myalgia, unspecified site] Onset: 4 06-25-2023 Episodic Other connective tissue disease (2 sources) Myalgia, unspecified site; Translations: [Myalgia, unspecified site] Onset: 4 Episodic Other diseases of bladder and urethra (20 sources) Spasm of bladder; Translations: [Bladder spasm] Resolved: 4 02-27-2013 Chronic Other ear and sense organ disorders (20 sources) Otitis externa; Translations: [Otitis externa] Resolved: 5 05-17-2014 Chronic Other ear and sense organ disorders (20 sources) Otalgia; Translations: [Ear pain] Resolved: 5 05-17-2014 Episodic Other ear and sense organ disorders (6 sources) Pain of ear structure; Translations: [Ear pain] Resolved: 5 05-17-2014 Episodic Other endocrine disorders (20 sources) Hyperparathyroidism due to vitamin D deficiency; Translations: [Hyperparathyroidism due to vitamin D deficiency] 03-06-2021 Chronic Other gastrointestinal disorders (20 sources) Irritable bowel syndrome; Translations: [Irritable bowel syndrome (IBS)] 03-06-2021 Chronic Comment on above: paleo diet really he lping this. more fiber whole foods and no carbs and sweets. Other gastrointestinal disorders (20 sources) Irritable bowel syndrome Chronic Other hereditary and degenerative nervous system conditions (20 sources) Restless legs; Translations: [Restless legs] 03-06-2021 Chronic Comment on above: had sleep study done before 2019 Other infections; including parasitic (20 sources) Personal history of other infectious and parasitic diseases; Translations: [History of COVID-19] 03-06-2021 Episodic Comment on above: Positive Mar 2020, m inor symptoms Other liver diseases (20 sources) ALT (SGPT) level raised; Translations: [Elevated serum glutamic pyruvic transaminase (SGPT) level] 03-06-2021 Episodic Comment on above: level 32 Other nervous system disorders (20 sources) Sleep related bruxism; Translations: [Bruxism, sleep-related] 03-06-2021 Chronic Comment on above: will get guard Other nervous system disorders (20 sources) Impaired cognition; Translations: [Brain fog] 03-06-2021 Episodic Comment on above: has gotten lost in [employer] past x 3, lost in grocery store and while driving Other nervous system disorders (20 sources) H/O: migraine; Translations: [History of migraine] 03-06-2021 Episodic Other nervous system disorders (20 sources) Neurological finding; Translations: [Nocturnal leg movements] 03-06-2021 Episodic Comment on above: will try mirapex Other non-traumatic joint disorders (20 sources) Joint pain; Translations: [Arthralgia] 03-06-2021 Episodic Comment on above: joints better than w as. trouble being cold. still some joint pains in hips neck and hands. no mouth sores. back rash since young. mental fog. no red eyes. Other non-traumatic joint disorders (20 sources) Shoulder joint pain; Translations: [Pain, joint, shoulder region, left] 03-06-2021 Episodic Comment on above: seeing Dr. Aquino, had MRI awaiting MRI results Other nutritional; endocrine; and metabolic disorders (20 sources) Body mass index 30+ - obesity; Translations: [BMI 33.0-33.9,adult] 03-06-2021 Chronic Other nutritional; endocrine; and metabolic disorders (20 sources) Obesity; Translations: [Obesity, unspecified] 03-06-2021 Chronic Comment on above: gain some weight wit h stress. talkabout 21 days purification. Other nutritional; endocrine; and metabolic disorders (20 sources) Obesity, unspecified Chronic Other nutritional; endocrine; and metabolic disorders (18 sources) Severe obesity; Translations: [Class 2 severe obesity due to excess calories with serious comorbidity and body mass index (BMI) of 35.0 to 35.9 in adult] 05-17-2022 Chronic Other screening for suspected conditions (not mental disorders or infectious disease) (20 sources) Thyroid hormone tests abnormal; Translations: [Abnormal TSH] Resolved: 5 11-30-2014 Episodic Other skin disorders (20 sources) Folliculitis; Translations: [Folliculitis] Resolved: 4 08-06-2013 Episodic Comment on above: fine on back and see n derm in past had since young lachydrin help itchand gluten free diet help Other skin disorders (20 sources) Inflamed seborrheic keratosis; Translations: [INFLAMED SEBORRHEIC KERATOSIS] Resolved: 3 09-12-2012 Episodic Comment on above: on right collar bone red irritated and hit with shirt Other skin disorders (20 sources) Eruption; Translations: [Rash] Resolved: 3 06-13-2012 Episodic Comment on above: looks like pilolaris keratitis or follicultis keep exfoliating because helps Other upper respiratory disease (20 sources) Allergic rhinitis; Translations: [Allergic rhinitis] 03-06-2021 Chronic Other upper respiratory infections (20 sources) Acute sinusitis; Translations: [Sinusitis, acute] Resolved: 3 02-04-2015 Episodic Residual codes; unclassified (20 sources) Flushing; Translations: [Flushing] 03-06-2021 Episodic Comment on above: gets flushing cream was helping bu t forgetting, wants oral therapy Residual codes; unclassified (20 sources) History of sleeve gastrectomy; Translations: [H/O gastric sleeve] 03-06-2021 Episodic Comment on above: Dec 2018 , Dr. Navi Gamble, [facility] Dec 2018 , Dr. Navi Gamble, [facility]--23# wt gain in last 7 months since taking care of her mom, was down to 183# --23# wt gain in las t 7 months since taking care of her mom, was down to 183#, working on improving thatDec 2018 , Dr. Navi Gamble, [facility] Residual codes; unclassified (20 sources) Insomnia; Translations: [Insomnia] 03-06-2021 Episodic Comment on above: holding Residual codes; unclassified (20 sources) Non-smoker; Translations: [Nonsmoker] 03-06-2021 Episodic Residual codes; unclassified (20 sources) Postmenopausal state; Translations: [Postmenopausal] 10-06-2021 Episodic Spondylosis; intervertebral disc disorders; other back problems (20 sources) Degeneration of cervical intervertebral disc; Translations: [DDD (degenerative disc disease), cervical] Onset: 4 06-29-2022 Chronic Comment on above: MRI 2013 per [facility] (see scanned image) MRI 04/07/2008: DDD a nd facet arthrosis, nothing compressive. Minimal bulge L5-S1 level Spondylosis; intervertebral disc disorders; other back problems (20 sources) Backache; Translations: [Back pain] Onset: 4 Resolved: 5 11-15-2014 Episodic Comment on above: since adjusting came back so will stop and do PT MRI done will get co py. seeing chaffeee and better slow. does have 3 disc issues. muscle relaxant help use at night. lyrica help some still erin ache down left arm better than was. doing adjustment and [employer] and PT. is taking natural herbs. add nsaid. if not better in another 4weeks. then to Dr. ewing. talk about doing medrol dose taj and refuse with weight gain. MRI 04/16/2013: shall ow mixed broad based displacement w/ rightward orientation and small left paracentral protrusion with superior migration at C5-C6 level (no compressive discopathy). Central soft protrusion and left foraminal protrusion at C6-C7 level resulting in L sided exiting neural foraminal stenosis but no definite nerve root compression. 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 ran out over a month ago. wants level rechecked, she has been very fatigued. recheck tsh, then se nd rxhas not been taking her medication. ran out, wants level rechecked, she has been very fatigued. recheck tsh, then se nd rxwas not taking her medication level ok but very fatigued. recheck tsh in 4 wee kswas not taking her medication, restarted 25mcg levothyroxine around 07/15 Unclassified (20 sources) WWV V73.21 Resolved: 3 06-13-2012 Unclassified (20 sources) Unclassified (20 sources) Nonsmoker Unclassified (16 sources) Brain fog Unclassified (8 sources) Hyperparathyroidism due to vitamin D deficiency Unclassified (20 sources) Chronic fatigue Unclassified (8 sources) Gluten-sensitive enteropathy Unclassified (8 sources) History of COVID-19 Unclassified (9 sources) H/O gastric sleeve Unclassified (20 sources) Ame's disease Unclassified (20 sources) Hypercholesteremia (272.0) Unclassified (20 sources) Arthralgia (719.40) Unclassified (20 sources) Pain, joint, shoulder region, left Unclassified (20 sources) Colon Polyp (211.3) Unclassified (20 sources) Hypertension,benign(401. 1) Unclassified (20 sources) Nocturnal leg movements Unclassified (20 sources) Bruxism, sleep-related Unclassified (16 sources) Abnormal TSH (794.5) Unclassified (8 sources) Atypical nevus Unclassified (8 sources) SCREENING FOR BREAST CANCER (V76.10) Unclassified (16 sources) Ear pain Unclassified (16 sources) Abnormal TSH Unclassified (16 sources) Bladder spasm (596.89) Unclassified (20 sources) Chronic fatigue (780.79) Unclassified (8 sources) Sinusitis acute (461.9) Unclassified (1 source) BMI 35.0-35.9,adult Unclassified (1 source) Hypercholesteremia Unclassified (1 source) Hypertension, benign Unclassified (1 source) Vaginal atrophy Unclassified (1 source) Postmenopausal Unclassified (1 source) History of hysterectomy including cervix Urinary tract infections (20 sources) Urinary tract infectious disease; Translations: [UTI (urinary tract infection)] 06-02-2021 Episodic Comment on above: klebsiella UTI in past had Klebs. 4 -22 I to macrobid S to cipro and fcil5oge she was treated iwth bactrim then needed more macrobid she had at home. good for a long while then UTI urgent care gave her macrobid 5 days now back. will do cipro for good 10 days knock it out of her. if systemic signs and symptoms will call Past or Other Problems Problem Classification Problem Date Documented Da te Episodic/Chronic Unclassified (19 sources) Deliveries (Parity); Translations: [Deliveries (Parity)] 03-06-2021 Comment on above: 2. both csections Unclassified (19 sources) Pregnancies (); Translations: [Pregnancies ()] 03-06-2021 Comment on above: 2. Unclassified (20 sources) Unspecified Diagnosis Resolved: 05-17-2014 01-26-2013 Unclassified (20 sources) BMI 33.0-33.9,adult Unclassified (8 sources) Elevated serum glutamic pyruvic transaminase (SGPT) level Unclassified (8 sources) Abdominal Pain,LUQ (789.02) Unclassified (8 sources) Abdominal Pain,General (789.07) Unclassified (8 sources) Rash (782.1) Unclassified (9 sources) BMI 34.0-34.9,adult Unclassified (5 sources) Abdominal pain, acute, generalized Urinary tract infections (20 sources) Urinary tract infections Results Test Name Value Interpretation Reference Range Facility Urgent Care Visit Reporton 0 11-16-2024 Urgent Care Visit Report [facility] [address], [address] [place] [address] OFFICE VISIT Date of Service: 11/16/24 MR#: [id number] Acct: [id number] Name: DIANA LEE Rep #: [id number] : 1970 Provider: SUZAN Jack Age/Sex: 54/F Location[facility] Status: Signed Intake Vital Signs 04/20/23 11:51 11/16/24 12:45 Height 5 ft 5 in 5 ft 5 in Weight: 228 lb BMI 37.9 BP 152/98 H Blood Pressure Location Lt brachial Position Sitting Pulse 94 Pulse Source Monitor Temp 98.3 F Temp Source Oral Pulse Oximetry (%) 98 Oxygen Delivery Method room air Intake Visit Reasons: SINUS CONGESTION, COUGH Chief Complaint: Cough, Congestion Accompanied by: Self Allergies semaglutide Allergy (Intermediate, Verified 11/16/24 12:51) heart palpitations Medications ???Medication ???Instructions ???Recorded ???Confirmed ???Type clftzvrifn-kczqqhrqrmzop-cn ffeine 1 tab PO PRN PRN Jimenez/Aches/Temp 11/16/24 History 50 mg-325 mg-40 mg tablet >=101 amlodipine 2.5 mg tablet mg PO 04/20/23 11/16/24 History cholecalciferol (vitamin D3) 125 125 mcg PO DAILY 04/20/23 11/16/24 History mcg (5,000 unit) capsule escitalopram oxalate 20 mg tablet mg PO 04/20/23 11/16/24 History estradiol 1 mg tablet mg PO 04/20/23 11/16/24 History lactobacillus combination no.9 4 4,000 mmu cells PO DAILY 04/20/23 11/16/24 History billion cell capsule (Adult 50 Plus Probiotic) levothyroxine 25 mcg tablet mcg PO 04/20/23 11/16/24 History lisinopril 40 mg tablet mg PO 04/20/23 11/16/24 History amoxicillin 875 mg-potassium 1 tab PO BID #20 tabs 11/16/24 Rx clavulanate 125 mg tablet Nurse's Note: Cough, congestion. X 3 weeks Still getting fevers everyday and chest congestion. Taking Mucinex. [facility] Medical History (Updated 04/20/23 @ 14:36 by Antonette Lockwood NP-C) Depression History of gout HTN (hypertension) Hypothyroidism Back pain Surgical History (Updated 04/20/23 @ 11:50 by Janna Devi) History of hysterectomy History of bariatric surgery Family History (Updated 04/20/23 @ 11:51 by Janna Devi) Other Cancer Heart disease Social History (Updated 04/20/23 @ 11:51 by Janna Devi) Smoking Status: Never smoker alcohol intake: never substance use type: does not use HPI HPI Chief Complaint: Cough, Congestion Details: DIANA LEE, is a 54 F who presents to the office today for [facility] evaluation at the [facility] for approximately 3-week history of progressively worsening forehead pressure/congestion with purulent postnasal drip and cough (which is worse when supine) and sore throat. No complaints of fever, chills, myalgias, fatigue, runny nose, or nausea/vomiting/diarrhea. No complaints of chest pain/shortness of breath/dyspnea on exertion. No close contacts with similar complaints. No other associated symptoms and no other alleviating/aggravating factors. ROS Const Constitutional: No other (as above) Exam Const General: cooperative, healthy appearing and no acute distress Orientation: alert, awake HENMT Head: normal to inspection Ears: hearing grossly normal bilaterally, external ears normal, TM's normal bilaterally and EAC's normal Nose: external nose normal, nares normal, septum normal and no nasal discharge Face and sinus: normal facial exam, sinuses tender (bilateral frontal) and face symmetric Mouth: oral mucosae normal, lip normal, tongue normal and oropharynx normal Throat: posterior oropharynx normal, tonsils normal, uvula midline and postnasal drainage (Purulent) Eyes General: appearance normal, both eyes and all related structures Neck Neck: normal visual inspection, full ROM, no meningeal signs, supple and lymphadenopathy (Bilateral anterior cervical lymph node swelling/tender to palpation) Neck mass: No Thyroid: thyroid normal Chest Chest palpation inspection: normal inspection of the chest Resp Effort Inspection: normal respiratory effort and able to speak in complete sentences Auscultation: Bilateral: Clear to Auscultation with moist nonproductive cough Cardio Palpation: normal PMI Rate: regular rate Rhythm: regular rhythm Heart Sounds: S1 normal, S2 normal Pulses: radial pulses present GI Inspection: normal to inspection Skin General: no rashes or lesions noted Neuro General: patient alert, patient awake Cognition: normal cognition Speech: speech normal Psych Appearance: grossly normal Mental Status: mental status grossly normal Mood: congruent mood Affect: normal affect Speech and Movement: speech and movement normal Attitude: cooperative Diagnoses Acute frontal sinusitis, unspecified J01.10 Acute bronchitis, unspecified J20.9 Assessment and Plan Assessment and Plan (1) Acute frontal (more content not included)... Normal [facility] Inital Evaluation (1) - PTon 01-30-2024 Inital Evaluation (1) - PT [facility] [place] [address] / REHABILITATION SERVICES INITIAL EVALUATION MR#: [id number] Acct: [id number] Name: DIANA LEE Rep #: [id number] : 1970 53 From: Claude Rg DPT, OCS, CSCS Referring Dr.: ANTONIETTA Beckham Status: REG R Insurance: [employer] INSURANCE Patient's Visit Information Visit Information Visit Information: DIANA LEE is a 53 year old F referred to Physical Therapy by ANTONIETTA Beckham with a diagnosis of vertigo. Date of Evaluation: 01/30/24 Physical Therapist: Claude Rg, JERARDO, OCS, CSCS Visit Plan Frequency: 1-2x /Week Duration: 4-6 Weeks Plan: 1-2x/week for 2-6 weeks as needed for : IE R dakota adn educated on head turns 10x and head nods 10x 6x/day Next session progress head movements, consider VOR, check R positional and consider BD. Subjective Subjective: I am dizzy. Started taking ozempic for weight loss and had allergic reaction and ended up in ER 3x. Has been dizzy for 8 days insidiously. Woke up that way. Feels goofy in head and cannot think clearly. Spins, no spinning if keeps head still. Wooshes of dizzyness with head movement. Feels off kilter. No falls, pass out 3x with the ozempic possibly being the cause with allergy. Sleep is not a problem, all she wants to do is sleep. 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 Misses some days due to not feeling good with head moving around. Basic ADLs done I but can be miserable. No aD needed but might have at first. 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 Overall slightly better than 8 days ago, still cannot drive. Objective Objective: Walks slow and hesitant back to PT area, hesitant to move head. cervical aROm is hesitant but able without pain(had recent neck injections) UE AROm WFL adn sensation wNL to gross light touch. - B hallpike juliette and roll test, but asymmetrically dizzy with head to R side, treateed with R modified dakota. Oculomotr: no nystagmus with gaze or head shake. - skew eye deviation - ocular tilt slight + R head thrust. head shake does make dizzy but worse with head nods. pursuit and saccades are good. VOR is symptomatic briefly H and V. Balance/Special Test Scores Functional Gait Assessment Score: 26 % Disability: 13.3400 CATSIB Score (Max score 120 seconds): 98 Dizziness Score: 86 Goals Goal 1:: Pt feel dizziness 90% better and manageable Goal Time Frame: 4-6 Weeks Goal 2:: FGA Goal Time Frame: 4-6 Weeks Goal 3:: Lie down in bed without symptoms Goal Time Frame: 4-6 Weeks Goal 4:: DHI score 10 or less Goal Time Frame: 4-6 Weeks Rehabilitation Potential Physical Therapy Diagnosis: dizziness with position changes of head limiting function. Rehabilitation Potential: Good Anticipated Interventions Patient/Client Instruction: Educate patient on: Condition, Plan of Care and Risk Factors For the Purpose of:: To improve nutrient delivery to tissue, To improve muscle performance and motor function and To increase tolerance to activity/condition/position Therapeutic Exercise to Include: Balance training Comment: adaptation and positional exercises For the Purpose of:: To increase ROM, To improve nutrient delivery to tissue and To increase tolerance to activity/condition/position Text: Thank you for the opportunity to evaluate your patient. For Medicare and Medicare HMO plans, please review the plan of care and approve it. It will need to be FAXED BACK to us at [phone] for Medicare purposes. For Medicare only, by signing this I certify the plan of care. Please let me know if there are questions or concerns regarding this plan of care. Physician Signature: Date: 01/30/24 1211 CC: ANTONIETTA Rg; Dr. Shraddha Holley, DO EBG Signed Normal [facility] CBC + DIFFon 01-25-2024 Baso # 0.02 x10EE3/UL Normal 0.00 - 0.10 [facility] Comment on above: Performed By: #### 2 [id number] #### [facility],[address] [place] [address] Basophils/100 WBC (Bld) 0.4 % Normal 0.0 - 2.0 [facility] Comment on above: Performed By: #### 2 [id number] #### [facility],[address] [place] [address] CBC + DIFF Normal [facility] Comment on above: Result Comment: CBC- COMPLETE BLOOD COUNT Performed By: #### 2 [id number] #### [facility],[address] [place] [address] EO # 0.06 x10EE3/UL Normal 0.00 - 0.50 [facility] Comment on above: Performed By: #### 2 [id number] #### [place] [address] Eosinophils/100 WBC (Bld) 1.0 % Normal 0.0 - 7.0 [facility] Comment on above: Performed By: #### 2 43204 #### [place] [address] Erythrocyte distribution width (RBC) [Ratio] 13.4 % Normal 12.0 - 15.6 [facility] Comment on above: Performed By: #### 2 31296 #### [place] [address] Hematocrit (Bld) [Volume fraction] 44.6 % Normal 34.0 - 46.0 [facility] Comment on above: Performed By: #### 2 48834 #### [facility],[address] [place] [address] Hemoglobin (Bld) [Mass/Vol] 15.1 g/dL Normal 12.0 - 16.0 [facility] Comment on above: Performed By: #### 2 60306 #### [place] [address] Lymph # 2.21 x10EE3/UL Normal 0.80 - 2.80 [facility] Comment on above: Performed By: #### 2 00371 #### [facility] [address] Lymphocytes/100 WBC (Bld) 37.2 % Normal 20.0 - 45.0 [facility] Comment on above: Performed By: #### 2 [id number] #### [facility],[address] [place] [address] MANUAL DIFF N/A Normal [facility] Comment on above: Performed By: #### 2 18603 #### [facility],[address] [place] [address] MCH (RBC) [Entitic mass] 30 pg Normal 27 - 33 [facility] Comment on above: Performed By: #### 2 62178 #### [place] [address] MCHC 34 X10 3 Normal 32 - 36 [facility] Comment on above: Performed By: #### 2 35290 #### [place] [address] MCV (RBC) [Entitic vol] 89 fL Normal 80 - 99 [facility] Comment on above: Performed By: #### 2 47945 #### [facility],[address] [place] [address] Maui # 0.30 x10EE3/UL Normal 0.20 - 1.00 [facility] Comment on above: Performed By: #### 2 12891 #### [facility],[address] [place] [address] MONOS % 5.0 % Normal 0.0 - 10.0 [facility] Comment on above: Performed By: #### 2 88659 #### [place] [address] Morphology Cesar (Bld) [Interp] N/A Normal [facility] Comment on above: Performed By: #### 2 27070 #### [place] [address] Neut # 3.36 x10EE3/UL Normal 1.50 - 7.10 [facility] Comment on above: Performed By: #### 2 09387 #### [facility],[address] [place] [id number] Neutrophils/100 WBC (Bld) 56.5 % Normal 46.0 - 76.0 [facility] Comment on above: Performed By: #### 2 90174 #### [facility],[address] [place] [id number] PLATELET 339 x10EE3/UL Normal 150 - 450 [facility] Comment on above: Performed By: #### 2 80090 #### [facility] [facility] [place] [address] [id number] Platelet mean volume (Bld) [Entitic vol] 6.9 fL Normal 6.6 - 10.5 [facility] Comment on above: Result Comment: AUTO MATED DIFFERENTIAL Performed By: #### 2 [id number] #### [facility],[address] [place] [address] [id number] RBC 5.00 x 10EE6/UL Normal 4.10 - 5.30 [facility] Comment on above: Performed By: #### 2 [id number] #### [facility],[address] [place] [address] 75612 WBC 6.0 x 10EE3/UL Normal 4.5 - 10.8 [facility] Comment on above: Performed By: #### 2 [id number] #### [facility],[address] [place] [address] 50185 CMP with eGFRon 01-25-2024 AGE 53 years Normal [facility] Comment on above: Performed By: #### 2 74035 #### [facility],[address] [place] [address] 04174 Albumin [Mass/Vol] 3.2 g/dL Low 3.4 - 5.0 [facility] Comment on above: Performed By: #### 2 05791 #### [facility],[address] [place] [address] 10465 Albumin/Globulin [Mass ratio] 0.8 {ratio} Low 0.9 - 1.6 [facility] Comment on above: Performed By: #### 2 64435 #### [facility],[address] [place] [address] 39526 ALK PHOS 87 U/L Normal 46 - 116 [facility] Comment on above: Performed By: #### 2 [id number] #### [facility],[address] [place] [address] 81530 ALT [Catalytic activity/Vol] 20 U/L Normal 16 - 63 [facility] Comment on above: Performed By: #### 2 29427 #### [facility],[address] [place] [address] 60212 Anion gap [Moles/Vol] 14 mmol/L Normal 10 - 20 [facility] Comment on above: Performed By: #### 2 74041 #### [facility],[address] [place] [address] [id number] AST [Catalytic activity/Vol] 42 U/L High 13 - 39 [facility] Comment on above: Performed By: #### 2 [id number] #### [facility],[address] [place] [address] 69391 B/C RATIO 11 ratio Normal 0 - 30 [facility] Comment on above: Performed By: #### 2 42244 #### [facility],[address] [place] [address] 35963 Bilirubin [Mass/Vol] 0.4 mg/dL Normal 0.2 - 1.0 [facility] Comment on above: Performed By: #### 2 26348 #### [facility],[address] [place] [address] 05476 Calcium [Mass/Vol] 8.7 mg/dL Normal 8.5 - 10.1 [facility] Comment on above: Performed By: #### 2 20716 #### [facility],[address] [place] [address] 90210 Chloride [Moles/Vol] 102 mmol/L Normal 98 - 107 [facility] Comment on above: Performed By: #### 2 12928 #### [facility],[address] [place] [address] 36434 CMP with eGFR Normal [facility] Comment on above: Result Comment: COMP REHENSIVE METABOLIC PANEL Performed By: #### 2 50311 #### [facility],[address] [place] [address] 46634 CO2 [Moles/Vol] 28.3 mmol/L Normal 21.0 - 32.0 [facility] Comment on above: Performed By: #### 2 73696 #### [facility],[address] [place] [address] 33832 Creatinine [Mass/Vol] 0.99 mg/dL Normal 0.55 - 1.02 [facility] Comment on above: Performed By: #### 2 69221 #### [facility],[address] [place] [address] 67483 eGFR 59 ML/MINUTE Low 60 - 999 [facility] Comment on above: Performed By: #### 2 49247 #### [facility],[address] [place] [address] 99061 GFR/1.73 sq M.predicted among non-blacks MDRD (S/P/Bld) [Vol rate/Area] mL/min/{1.73_m2} Normal 60 - 999 [facility] Comment on above: Result Comment: ACCO RDING TO THE NATIONAL KIDNEY DISEASE EDUCATION PROGRAM(NKDE), A NORMAL eGFR IS A VALUE GREATER THAN OR EQUAL TO 60 ML/MIN/1.73 SQ METERS. CHRONIC KIDNEY DISEASE: <60mL/MIN/1.73 SQ METERS KIDNEY FAILURE: <15mL/MIN/1.73 SQ METERS THIS TEST SHOULD ONLY BE USED FOR PATIENTS 18 YEARS OF AGE AND OLDER. Performed By: #### 2 06321 #### [facility],[address] [place] [address] 28953 Globulin (S) [Mass/Vol] 3.9 g/dL High 1.5 - 3.8 [facility] Comment on above: Performed By: #### 2 61162 #### [facility],[address] [place] [address] 31360 Glucose [Mass/Vol] 94 mg/dL Normal 74 - 106 [facility] Comment on above: Performed By: #### 2 65452 #### [facility],[address] [place] [address] 51769 Potassium [Moles/Vol] 4.7 mmol/L Normal 3.5 - 5.1 [facility] Comment on above: Performed By: #### 2 75737 #### [facility],[address] [place] [address] 80426 Protein [Mass/Vol] 7.1 g/dL Normal 6.4 - 8.2 [facility] Comment on above: Performed By: #### 2 79374 #### [facility],[address] [place] [address] 44452 Sodium [Moles/Vol] 140 mmol/L Normal 136 - 145 [facility] Comment on above: Performed By: #### 2 93719 #### [facility],[address] [place] [address] 66148 Urea nitrogen [Mass/Vol] 11 mg/dL Normal 7 - 18 [facility] Comment on above: Performed By: #### 2 03160 #### [facility],[address] [place] [address] 91144 ED MED ADMINISTRATION DETAIL on 01-25-2024 ED MED 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 Allergies verified and confirmed 5 rights. IV 03:24 01/25/2024 mg (NOW x1) patency established. IV site checked: no pain, redness, or swelling. Evette Abel R.N. IV flushed thoroughly pre-medication administration. Information Scanned reviewed with patient. Verbalizes understanding. Medication Wastage: 5 mg wasted. - 03:25 Evette Abel R.N. 1 of 1 Normal [facility] ED NURSES CLINICAL NOTEon ED NURSES CLINICAL NOTE Nurse Narrative Nurse Clinical Narrative [address] [place] [address] [phone] 01/25/2024 Patient: DIANA LEE Sex: Female : 1970 Age: 53y Disposition: Discharge to Home Disposition Decision Time: 04:14 01/25/2024 Departure Time: 04:35 01/25/2024 TRIAGE Arrived by private vehicle. Historian: patient. Accompanied by family. Triage time: 02:11 01/25/2024. Acuity: LEVEL 3. Chief Complaint: POSSIBLE ALLERGIC REACTION and . tongue. This started today. ( 0000. Pt has been feeling dizzy since Thanksgiving 01/23/24). 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 Taken at 0120). SEPSIS SCREEN: NEGATIVE. SIRS criteria negative. No possible sources of infection. -- 02:38 01/25/24 LAYLA Abel R.N. 02:34 01/25/24. BP: 168/108 MAP: 128. HR: 87. RR: 16. O2 saturation: 99% Temperature: 97.9 F. Pain level now 1/10. Describes the pain as aching. Constant. -- 02:34 01/25/24 LAYLA Abel R.N. Measurements: 02:35 01/25/24 Wt: 95.7 kg, Ht/Alexi: 65.0 in, BMI: 35.11 -- 02:35 01/25/24 LAYLA Abel R.N. Medications: Semaglutide 2.5mg/ml Inj 4ml -- 02:37 01/25/24 LAYLA Abel R.N. 1 of 4 Nurse Narrative amlodipine 2.5 mg tablet -- 02:37 01/25/24 LAYLA Abel R.N. escitalopram 20 mg tablet -- 02:37 01/25/24 LAYLA Abel R.N. lisinopril 40 mg tablet -- 02:37 01/25/24 LAYLA Abel R.N. levothyroxine 25 mcg tablet -- 02:37 01/25/24 LAYLA Abel R.N. estradiol 1 mg tablet -- 02:37 01/25/24 LAYLA Abel R.N. Allergies: no known drug allergies -- 02:36 01/25/24 LAYLA Abel R.N. Problems: Hypertension -- 02:37 01/25/24 LAYLA Abel R.N. 02:11 01/25/24. Preferred pharmacy ([facility]). -- 02:38 01/25/24 LAYLA Abel R.N. ADDITIONAL SURGERIES: -- 02:37 01/25/24 LAYLA Abel R.N. Bariatric Surgery -- 02:37 01/25/24 LAYLA Abel R.N. History 02:11 01/25/24. SOCIAL HX: Never smoker. No alcohol use or drug use. The patient has not traveled outside the [place] Infectious disease exposure: No infectious disease exposure. ABUSE ASSESSMENT: The patient answered yes to the question(s) Do you feel safe in your home? and no to the question(s) Are you afraid to go home?. SELF HARM ASSESSMENT: Self harm assessment was performed. The patient answered no to the question(s) Have you recently felt down, depressed, or hopeless? and Do you have thoughts of harming or killing yourself?. FALL RISK ASSESSMENT: Fall risk assessment completed. No risk factors identified. -- 02:38 01/25/24 LAYLA Abel R.N. 2 of 4 Nurse Narrative Interventions 02:11 01/25/24. Identification band on patient. Advanced care plan discussed with patient. Patient does not have advanced directive. -- 02:38 01/25/24 LAYLA Abel R.N. PHYSICAL ASSESSMENT 02:40 01/25/24. Ambulatory to room. GENERAL / NEURO / PSYCH: Alert. The patient does not appear to be in acute distress. Oriented X 4. HEENT: Pupils equal, round and reactive to light. Mucous membranes are pink. RESPIRATORY: Respirations not labored. Breath sounds within normal limits. CVS: Normal sinus rhythm noted. Capillary refill less than 2 seconds. Pulses within normal limits. GI / : Abdomen nontender. SKIN: Skin is intact, warm and dry. No skin rash. -- 02:40 01/25/24 LAYLA Abel R.N. NURSING PROGRESS NOTES 02:26 01/25/24. Site #1 started via IV in the right antecubital space with an 18g angiocath with aseptic technique and good blood return. Blood drawn: rainbow set tube(s). Saline lock flushed with 5 mL saline. -- 02:41 01/25/24 LAYLA Abel R.N. 02:39 01/25/24. Rounding: Pain: assessed pain level. Position: states comfortable. Proximity of possessions / care items: call light within easy reach. Set expectations: advised patient of rounding protocol timing. Two patient identifiers checked. Call light placed in reach. Side rails up x 1. Bed placed in lowest position. Brakes of bed on. -- 02:39 01/25/24 LAYLA Abel R.N. 03:24 01/25/24. Dexamethasone (Dedcadron) IVP 5 mg given over 1 minute(s) via Site# 1. Allergies verified and confirmed 5 rights. IV patency established. IV site checked: no pain, redness, or swelling. IV flushed thoroughly pre-medication administration. Information reviewed with patient. Verbalizes understanding. Medication Wastage: 5 mg wasted. -- 03:25 01/25/24 LAYLA Abel R.N. 03:31 01/25/24. Patient gowned. Rounding: Pain: assessed pain level. Position: states comfortable. Proximity of possessions / care items: call light within easy reach. -- 03:31 01/25/24 LAYLA Abel R.N. 04:20 01/25/24. Rounding: Position: states comfortable. Personal care / toileting: assisted with toileting. Set expectations: advised patient of rounding protocol timing. -- 04:20 01/25/24 LAYLA Abel R.N. (more content not included)... Normal [facility] ED ORDER SHEET (CPOE ONLY)on 01-25-2024 ED ORDER SHEET (CPOE ONLY) Order Sheet Order Sheet [facility] [address] [place] [address] [id number] 01/25/2024 Patient: DIANA LEE Sex: Female : 1970 Age: 53y MEASUREMENTS: Wt: 95.7 kg, Ht/Alexi: 65.0 in, BMI: 35.11 ALLERGIES: No known drug allergies MEDICATION/IV/DRIP/FLUID ORDERS Order Description Priority Entered Acknowledged Completed Dexamethasone (Dedcadron) 02:47 01/25/2024 03:16 03:25 IVP5 mg (NOW x1) Lucie Partida D.O. 01/25/2024 01/25/2024 Lalito Freedman R.N. Reason for ordering with alerts: Clinical consideration given --02:47 01/25/2024 Lucie Partida D.O. LAB ORDERS Order Description Priority Entered Acknowledged Collected Completed CBC w Diff Stat Stat 02:41 01/25/2024 02:42 01/25/2024 02:44 01/25/2024 Steven Raphael R.N. Anne Rutt, R.N. CMP Stat Stat 02:41 01/25/2024 02:42 01/25/2024 02:44 01/25/2024 Steven Raphael R.N. Anne Rutt, R.NTonny Troponin-I Stat Stat 02:41 01/25/2024 02:42 01/25/2024 02:44 01/25/2024 Lucie DidurSteven R.N. Anne Rutt, R.N. 1 of 2 Order Sheet EKG - ED Stat Stat 02:41 01/25/2024 02:42 01/25/2024 02:44 01/25/2024 Steven Raphael R.N. Anne Rutt RGlo DIAGNOSTIC STUDY ORDERS Order Description Priority Entered Acknowledged Completed STAFF ORDERS Order Description Priority Entered Acknowledged Collected Completed Oxygen titrate to 92% 02:41 01/25/2024 02:44 01/25/2024 Steven Raphael R.N. National Account Representative 02:41 01/25/2024 02:42 01/25/2024 02:44 01/25/2024 Steven Raphael R.N. Anne Rutt, R.N. Vital signs every 15 02:41 01/25/2024 02:44 01/25/2024 02:44 01/25/2024 minutes Steven Raphael R.N. Anne Rutt, R.N. IV Saline Lock 02:41 01/25/2024 02:42 01/25/2024 02:44 01/25/2024 Steven Raphael R.N. Anne Rutt, R.N. [Electronically signed by Lucie Partida D.O. (01/25/2024 07:30 EST)] 2 of 2 Normal [facility] ED PHYSICIAN CLINICAL REPORT on 01-25-2024 ED PHYSICIAN CLINICAL REPORT Narrative Physician Clinical Narrative [address] [address] [id number] 01/25/2024 Patient: DIANA LEE Sex: Female : 1970 Age: 53y Disposition: Discharge to Home Disposition Decision Time: 04:14 01/25/2024 Departure Time: 04:35 01/25/2024 Measurements Wt: 95.7 kg, Ht/Alexi: 65.0 in, BMI: 35.11 Initial Vital Sign Measured Time BP MAP HR RR O2Sat ETCO2 Temp Pain GCS RTS 02:34 01/25/2024 168/108 128 87 16 99% 97.9 F 1 Time Seen: 02:17 01/25/2024. Arrived- By private vehicle. Historian- patient. HISTORY OF PRESENT ILLNESS Chief Complaint: tongue swelling. This started just prior to arrival 1:20 AM; Took 2 Benadryl and 1 of her prednisone tablets and now her symptoms have resolved. and is now gone. There has been no pain. No sore throat, mouth sores, nasal discharge or congestion or ear pain. No toothache, swollen jaw or face, jaw pain or facial pain. (Patient has increased her dose of Ozempic twice in the past. She has been on Ozempic for about 2 months now. She always takes it on Mondays. So this has been her 2nd increased dose. This is her 3rd ER visit since starting on the Ozempic. She gets similar symptoms that she had tonight with the tongue swelling but she also gets some chest pressure and she gets very dizzy and feels like she is going to pass out. Those symptoms have since resolved.). 1 of 9 Narrative Similar symptoms previously. Patient has had similar symptoms twice. Recent medical care: The patient was seen recently at this facility. REVIEW OF SYSTEMS RESPIRATORY: No cough or difficulty breathing. CONSTITUTIONAL: No fever. EYES: No eye discomfort. : No difficulty with urination. CVS: The patient has had chest pain. GI: No nausea, diarrhea, abdominal pain or vomiting. NEUROLOGICAL: No headache. MUSCULOSKELETAL: The patient has had joint pain. SKIN: The patient has had skin rash. ENDO/HEME/LYMPH: The patient has had enlarged lymph nodes. PAST HISTORY See nurses notes. Hypertension Surgeries: Bariatric Surgery Medications: amlodipine 2.5 mg tablet escitalopram 20 mg tablet estradiol 1 mg tablet levothyroxine 25 mcg tablet lisinopril 40 mg tablet Semaglutide 2.5mg/ml Inj 4ml Allergies: no known drug allergies SOCIAL HISTORY Never smoker. No alcohol use or drug use. ADDITIONAL NOTES The nursing notes have been reviewed. 2 of 9 Narrative PHYSICAL EXAM Appearance: Alert. No acute distress. Eyes: Pupils equal, round and reactive to light. Conjunctivae and eyelids normal. ENT: Nose normal. Pharynx normal. Lips normal. Gums normal. No trismus present. Uvula midline. (Tongue does not look swollen or enlarged on my examination now.). Neck: Trachea midline. No adenopathy. Thyroid normal. Neck supple. CVS: Normal heart rate and rhythm. Heart sounds normal. Pulses normal. Respiratory: No respiratory distress. Breath sounds normal. Chest nontender. Abdomen: Soft and nontender. No organomegaly. Skin: Normal skin color. No rash. Extremities: Extremities exhibit normal ROM. Extremities nontender. Neuro: Oriented X 3. No motor deficit. No sensory deficit. LABS, X-RAYS, AND EKG 12-LEAD EKG: EKG time: 02:16 01/25/2024. No acute process. Normal sinus rhythm. Rate: 81. Normal P waves. Q waves in lead V1, V2 and V3. Normal axis. Normal ST and T waves. The study has been interpreted contemporaneously by me. Interpretation time: 02:17 01/25/2024. Laboratory Tests: CBC + DIFF Final ABHISHEK: 01/25/2024 02:23:00 EST MsgRcvd: 01/25/2024 03:04 EST Lab Test Result Reference Status Received Comments 01/25/2024 03:04 CBC-COMPLETE CBC + DIFF Final EST BLOOD COUNT 01/25/2024 03:04 WBC 6.0 x 10/UL 4.5 - 10.8 Final EST 01/25/2024 03:04 RBC 5.00 x 10/UL 4.10 - 5.30 Final EST 01/25/2024 03:04 HEMOGLOBIN 15.1 g/dl 12.0 - 16.0 Final EST 3 of 9 Narrative 01/25/2024 03:04 HEMATOCRIT 44.6 % 34.0 - 46.0 Final EST 01/25/2024 03:04 MCV 89 fl 80 - 99 Final EST 01/25/2024 03:04 MCH 30 pg 27 - 33 Final EST 01/25/2024 03:04 MCHC 34 X10 3 32 - 36 Final EST 01/25/2024 03:04 RDW/CV 13.4 % 12.0 - 15.6 Final EST 01/25/2024 03:04 PLATELET 339 x10/UL 150 - 450 Final EST 01/25/2024 03:04 AUTOMATED MPV 6.9 fl 6.6 - 10.5 Final EST DIFFERENTIAL 01/25/2024 03:04 NEUT % 56.5 % 46.0 - 76.0 Final EST 01/25/2024 03:04 LYMPH % 37.2 % 20.0 - 45.0 Final EST 01/25/2024 03:04 MONOS % 5.0 % 0.0 - 10.0 Final EST 01/25/2024 03:04 EO % 1.0 % 0.0 - 7.0 Final EST 01/25/2024 03:04 BASO % 0.4 % 0.0 - 2.0 Final EST 01/25/2024 03:04 Lymph # 2.21 x10/UL 0.80 - 2.80 Final EST 01/25/2024 03:04 Neut # 3.36 x10/UL 1.50 - 7.10 Final EST 4 of 9 Narrative 01/25/2024 03:04 [place] # 0.30 x10/U (more content not included)... Normal [facility] ED SUPER BILLon 01-25-2024 ED SUPER BILL [address] [address] [id number] 01/25/2024 Patient: DIANA LEE Sex: Female : 1970 Age: 53y Item Facility Professional Category Description Code Code Quantity Fee Total Nurse/E/M EMERGENCY 122382 1 $0.00 $0.00 DEPARTMENT VISIT HIGH/URGENT SEVERITY (45453-70) Nurse/IV/IM/Infusions IVP initial 716456 1 $0.00 $0.00 (37137) Grand Total $0.00 Providers Lucie Partida D.O. Chief Complaint tongue swelling. Principal Diagnosis Adverse drug reaction involving an oral hypoglycemic. 1 of 2 [facility] ICD-10 Codes T38.3x5A: Adverse effect of insulin and oral hypoglycemic [antidiabetic] drugs, initial encounter 2 of 2 [facility] ED VISIT SUMMARYon ED VISIT SUMMARY Visit Overview Visit Overview [address] [address] [id number] 01/25/2024 Patient: DIANA LEE Sex: Female : 1970 Age: 53y 01/25/2024 07:30 AM EST ED Arrival:02:11 01/25/2024 EST Status: Recent Travel:no Language:eng Adv Directive:No Isolation Status: Ethnicity:N Fall Risk:no risk Infectious Disease Exposure:no Measurements:5'5 / 165.1 Self-Harm Status:risk Sepsis Screen:negative cm 211.0 lb / 95.7 kg Chief Complaint:*e POSSIBLE ALLERGIC REACTION, (0000. Pt has been feeling dizzy since Thanksgiving 01/23/24), (Benadryl 50 mg, Prednisone Unknown mg. Taken at 0120), and (tongue) ALLERGIES No Known Drug Allergies HOME MEDICATIONS amlodipine 2.5 mg tablet escitalopram 20 mg tablet estradiol 1 mg tablet 3 Visit Overview levothyroxine 25 mcg tablet lisinopril 40 mg tablet Semaglutide 2.5mg/ml Inj 4ml PAST MEDICAL HISTORY / PROBLEMS Hypertension See nurses notes PAST SURGICAL HISTORY Bariatric Surgery SOCIAL HISTORY Smoking status: No Alcohol use: No Drug use: No ED COURSE MEDICATIONS GIVEN IN EMERGENCY DEPARTMENT 03:24 01/25/24 Dexamethasone (Dedcadron) IVP 5 mg over 1 minute(s) IV SITE INFORMATION INTAKE OUTPUT REASSESMENT (most recent) 02:40 01/25/24. Ambulatory to room. GENERAL / NEURO / PSYCH: Alert. The patient does not appear to be in acute distress. Oriented X 4. HEENT: Pupils equal, round and reactive to light. Mucous membranes are pink. RESPIRATORY: Respirations not labored. Breath sounds within normal limits. CVS: Normal sinus rhythm noted. Capillary refill less than 2 seconds. Pulses within normal limits. GI / : Abdomen nontender. SKIN: Skin is intact, warm and dry. No skin rash. VITAL SIGNS 2 of 3 Visit Overview First Vitals Last Vitals Temp 02:34 01/25/24 97.9 F Temp 02:34 01/25/24 97.9 F BP 02:34 01/25/24 168/108 BP 02:34 01/25/24 168/108 HR 02:34 01/25/24 87 HR 02:34 01/25/24 87 RR 02:34 01/25/24 16 RR 02:01/25/24 16 O2 Sat 02:01/25/24 99% O2 Sat 02:01/25/24 99% Pain 02:34 01/25/24 1 Pain 02:34 01/25/24 1 ETCO2 02:34 01/25/24 ETCO2 02:34 01/25/24 GCS 02:34 01/25/24 GCS 02:34 01/25/24 RTS 02:34 01/25/24 RTS 02:34 01/25/24 PROCEDURES NURSING INTERVENTIONS LABS / STUDIES LABS / STUDIES ORDERED CBC w Diff CMP EKG - ED Troponin-I CLINICAL IMPRESSION ADVERSE DRUG REACTION INVOLVING AN ORAL HYPOGLYCEMIC 3 of 3 Normal [facility] ED VITALS FLOW SHEETon 01-24 ED VITALS FLOW SHEET Vitals Vital Sign Flow Sheet [address] [address] [id number] 01/25/2024 Patient: DIANA LEE Sex: Female : 1970 Age: 53y Measurements Wt: 95.7 kg, Ht/Alexi: 65.0 in, BMI: 35.11 Measured Time BP MAP HR RR O2Sat ETCO2 Temp Pain GCS RTS 02:34 01/25/2024 168/108 128 87 16 99% 97.9 F 1 1 of 1 Normal [facility] TROPONINon 01-25-2024 HS TROPONIN 8.1 pg/mL Normal 0.0 - 51.4 [facility] Comment on above: Performed By: #### 2 [id number] #### [facility],[address] [place] [address] ED MED ADMINISTRATION DETAIL on 12-29-2023 ED MED 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 Allergies verified and confirmed 5 rights. IV 03:20 12/27/2023 (NOW x1) patency established. IV site checked: no pain, redness, or swelling. Noam Norwood R.N. IV flushed thoroughly pre-medication administration. Information Stopped reviewed with patient including reason for taking this medication. 04:00 12/27/2023 Verbalizes understanding. - 03:22 Lalito Taylor R.N. Scanned 04:00 12/26 Medication Discontinued: bag #1 completed. Total amount infused: 600 mL. IV patency established. IV site checked: no pain, redness, or swelling. IV flushed thoroughly post-medication administration. - 04:05 Noam Norwood R.N. Benadryl IVP 50 mg 03:23 12/26 Benadryl IVP 50 mg given via Site# 1. Confirmed 5 Given (NOW x1) rights. IV patency established. IV site checked: no pain, redness, or 03:23 12/27/2023 swelling. IV flushed thoroughly pre-medication administration. Noam Norwood R.N. Information reviewed with patient including reason for taking this Scanned medication. Verbalizes understanding. - 03:23 Noam Norwood R.N. 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 Confirmed 5 rights. IV patency 03:25 12/27/2023 (Solu-Medrol) IVP established. IV site checked: no pain, redness, or swelling. IV Noam Norwood R.N. 125 mg (NOW x1) flushed thoroughly pre-medication administration. Information Scanned reviewed with patient including reason for taking this medication. Verbalizes understanding. - 03:25 Noam Norwood R.N. Pepcid 20mg/50ml 03:25 12/26 Pepcid 20mg/50ml Premix IVPB 20 mg started at 40 Started Premix IVPB 20 mg mg/hr via Site# 1. Allergies verified and confirmed 5 rights. IV 03:25 12/27/2023 (NOW x1) patency established. IV site checked: no pain, redness, or swelling. Noam Norwood R.N. IV flushed thoroughly pre-medication administration. Information Stopped reviewed with patient including reason for taking this medication. 04:01 12/27/2023 Verbalizes understanding. - 03:25 Lalito Taylor R.N. Scanned 04:12/26 Medication Discontinued: IV completed. Total amount infused: 50 mL. IV patency established. IV site checked: no pain, redness, or swelling. IV flushed thoroughly post-medication administration. - 04:06 Noam Norwood R.N. 2 of 2 Normal [facility] ED NURSES CLINICAL NOTEon ED NURSES CLINICAL NOTE Nurse Narrative Nurse Clinical Narrative [id number] [facility] [place] [address] [phone] 12/27/2023 Patient: DIANA LEE Sex: Female : 1970 Age: 53y Disposition: Discharge to Home Disposition Decision Time: 03:45 12/27/2023 Departure Time: 04:05 12/27/2023 TRIAGE Arrived by private vehicle. Historian: patient. Accompanied by family. ( pt woke up around around 0100 with tongue swelling. She had inhaled paint smell earlier in the evening.). Triage time: 01:56 12/27/2023. Acuity: LEVEL 3. Chief Complaint: POSSIBLE ALLERGIC REACTION. This started just prior to arrival. The patient has had swelling. Location identified as the tongue. 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 SEPSIS SCREEN: NEGATIVE. SIRS criteria negative. -- 02:03 12/27/23 EDT Shelton Payan R.N. 02:12/27/23. BP: 141/84 MAP: 103. HR: 84. RR: 16. O2 saturation: 100% Temperature: 97.3 F. Pain level now 0/10. -- 02:12/27/23 EDT Shelton Payan R.N. Measurements: 02:00 12/27/23 Wt: 97.5 kg, Ht/Alexi: 65.0 in, BMI: 35.78 -- 02:00 12/27/23 EDT Shelton Payan R.N. Medications: Semaglutide 2.5mg/ml Inj 4ml -- 01:58 12/27/23 EDT Tr Thurston.N. 1 of 4 Nurse Narrative amlodipine 2.5 mg tablet -- 01:58 12/27/23 EDT Jimmy ThurstonN. escitalopram 20 mg tablet -- 01:58 12/27/23 EDT Shelton Payan R.N. lisinopril 40 mg tablet -- 01:58 12/27/23 EDT Jimmy ThurstonN. levothyroxine 25 mcg tablet -- 01:58 12/27/23 EDT Tr Thurston.N. estradiol 1 mg tablet -- 01:58 12/27/23 EDT Shelton Payan R.N. Allergies: no known drug allergies -- 01:57 12/27/23 EDT Shelton Payan R.N. Problems: Benign essential hypertension -- 01:59 12/27/23 EDT Jimmy ThurstonN. Hypothyroidism -- 01:59 12/27/23 EDT Jimmy ThurstonN. ADDITIONAL SURGERIES: -- 01:59 12/27/23 EDT Shelton Payan R.N. Bariatric Surgery -- 01:59 12/27/23 EDT Shelton Payan R.N. History 01:56 12/27/23. SOCIAL HX: Never smoker. No alcohol use or drug use. The patient has not traveled outside the [place] Infectious disease exposure: No infectious disease exposure. ABUSE ASSESSMENT: The patient answered yes to the question(s) Do you feel safe in your home? and no to the question(s) Are you afraid to go home?. SELF HARM ASSESSMENT: Self harm assessment was performed. The patient answered no to the question(s) Have you recently felt down, depressed, or hopeless? and Do you have thoughts of harming or killing yourself?. FALL RISK ASSESSMENT: Fall risk assessment completed. No risk factors identified. -- 02:03 12/27/23 EDT Shelton Payan R.N. PHYSICAL ASSESSMENT 2 of 4 Nurse Narrative 02:46 12/27/23. Ambulatory to room. ( Left side tongue swelling, states started at 0100 today, passed out twice at home.). GENERAL / NEURO / PSYCH: Alert. The patient does not appear to be in acute distress. Oriented X 4. HEENT: Pupils equal, round and reactive to light. Mucous membranes are pink. RESPIRATORY: Respirations not labored. Breath sounds within normal limits. -- 03:46 12/27/23 EDT Noam Norwood R.N. NURSING PROGRESS NOTES 03:12/27/23. IV NS 0.9 % 1000 mL started in bag#1 1000 mL at 100 mL/hr via Site# 1. Allergies verified and confirmed 5 rights. IV patency established. IV site checked: no pain, redness, or swelling. IV flushed thoroughly pre-medication administration. Information reviewed with patient including reason for taking this medication. Verbalizes understanding. -- 03:22 12/27/23 EDT Noam Norwood R.N. 03:12/27/23. Benadryl IVP 50 mg given via Site# 1. Confirmed 5 rights. IV patency established. IV site checked: no pain, redness, or swelling. IV flushed thoroughly pre-medication administration. Information reviewed with patient including reason for taking this medication. Verbalizes understanding. -- 03:12/27/23 EDT Noam Norwood R.N. 03:12/27/23. MethylPREDNISolone Sodium Succ (Solu-Medrol) IVP 125 mg given via Site# 1. Confirmed 5 rights. IV patency established. IV site checked: no pain, redness, or swelling. IV flushed thoroughly pre-medication administration. Information reviewed with patient including reason for taking this medication. Verbalizes understanding. -- 03:25 12/27/23 EDT Noam Norwood R.N. 03:12/27/23. Pepcid 20mg/50ml Premix IVPB 20 mg started at 40 mg/hr via Site# 1. Allergies verified and confirmed 5 rights. IV patency established. IV site checked: no pain, redness, or swelling. IV flushed thoroughly pre-medication administration. Information reviewed with patient including reason for taking this medication. Verbalizes understanding. -- 03:12/27/23 EDT Noam Norwood R.N. 03:12/27/23. Two patient identifiers checked. Call light placed in reach. Side rails up x 1. Bed placed in lowest position. Brakes of bed on. -- 03:46 12/27/23 EDT Noam Enma, R.N. DISPOSITION / DISCHARGE 03:16 12/27/23. Site #1 started via IV in the right an (more content not included)... Normal [facility] ED ORDER SHEET (CPOE ONLY)on 12-29-2023 ED ORDER SHEET (CPOE ONLY) Order Sheet Order Sheet [facility] [address] [place] [address] [id number] 12/27/2023 Patient: DIANA LEE Sex: Female : 1970 Age: 53y MEASUREMENTS: Wt: 97.5 kg, Ht/Alexi: 65.0 in, BMI: 35.78 ALLERGIES: No known drug allergies MEDICATION/IV/DRIP/FLUID ORDERS Order Description Priority Entered Acknowledged Completed IV NS 0.9 %1000 mL at 100 02:10 12/27/2023 03:06 03:22 mL/hr (NOW x1) Lucie Partida D.O. 12/27/2023 12/27/2023 Lalito Taylor R.N. Benadryl IVP50 mg (NOW x1) 02:10 12/27/2023 03:06 03:23 Lucie Pratida D.O. 12/27/2023 12/27/2023 Lalito Taylor R.N. MethylPREDNISolone Sodium 02:10 12/27/2023 03:06 03:25 Succ (Solu-Medrol) [id number] mg Lucie Partida D.O. 12/27/2023 12/27/2023 (NOW x1) Lalito Taylor R.NTonny Reason for ordering with alerts: Clinical consideration given --02:10 12/27/2023 Lucie Partida D.O. Pepcid 20mg/50ml Premix 02:10 12/27/2023 03:06 03:25 IVPB20 mg (NOW x1) Lucie Partida D.O. 12/27/2023 12/27/2023 Lalito Taylor RTonnyNTonny LAB ORDERS 1 of 2 Order Sheet Order Description Priority Entered Acknowledged Collected Completed CBC w Diff Stat Stat 02:10 12/27/2023 03:06 12/27/2023 03:23 12/27/2023 Steven Raphael R.N. Seth Lapp, R.N. CMP Stat Stat 02:10 12/27/2023 03:06 12/27/2023 03:23 12/27/2023 Steven Raphael R.N. Seth Lapp, R.N. DIAGNOSTIC STUDY ORDERS Order Description Priority Entered Acknowledged Completed STAFF ORDERS Order Description Priority Entered Acknowledged Collected Completed [Electronically signed by Lucie Partida D.O. (12/29/2023 01:00 EDT)] 2 of 2 Normal [facility] ED PHYSICIAN CLINICAL REPORT on 12-29-2023 ED PHYSICIAN CLINICAL REPORT Narrative Physician Clinical Narrative [address] [address] [phone] 12/27/2023 Patient: DIANA LEE Sex: Female : 1970 Age: 53y Disposition: Discharge to Home Disposition Decision Time: 03:45 12/27/2023 Departure Time: 04:05 12/27/2023 Measurements Wt: 97.5 kg, Ht/Alexi: 65.0 in, BMI: 35.78 Initial Vital Sign Measured Time BP MAP HR RR O2Sat ETCO2 Temp Pain GCS RTS 02:01 12/27/2023 141/84 103 84 16 100% 97.3 F 0 Time Seen: 02:01 12/27/2023. Arrived- By private vehicle. Historian- patient. HISTORY OF PRESENT ILLNESS Chief Complaint: ALLERGIC REACTION. THROAT SWELLING and FEEL FAINT. Was exposed to paint fumes at home today where they are remodeling. Went to bed feeling fine and then woke up just prior to arrival complaining of her tongue swollen. This started just prior to arrival and is still present. No skin rash, difficulty breathing or dizziness. The patient has had swelling involving the tongue but not had itching or trouble swallowing and experienced syncope. A cause has been identified (paint fumes). No recent medication, insect bite or food exposure. Was not recently exposed to poison donnell or poison oak. The patient self administered medication prior to arrival including Benadryl (Benadryl). Similar symptoms previously. None. 1 of 9 Narrative Recent medical care: Not recently seen/assessed. REVIEW OF SYSTEMS NEUROLOGICAL: No headache, weakness or numbness. : No urinary frequency or pain with urination. GI: No abdominal pain, vomiting or black stools. CVS: No chest pain or palpitations. EYES: No eye problems. THROAT: No sore throat. RESPIRATORY: No cough or sputum production. CONSTITUTIONAL: No fever or chills. MUSCULOSKELETAL: No joint pain. PAST HISTORY See nurses notes. Benign essential hypertension Hypothyroidism Surgeries: Bariatric Surgery Medications: amlodipine 2.5 mg tablet escitalopram 20 mg tablet estradiol 1 mg tablet levothyroxine 25 mcg tablet lisinopril 40 mg tablet Semaglutide 2.5mg/ml Inj 4ml Allergies: no known drug allergies SOCIAL HISTORY Never smoker. No alcohol use or drug use. ADDITIONAL NOTES The nursing notes have been reviewed. 2 of 9 Narrative PHYSICAL EXAM Appearance: Alert. Oriented X3. No acute distress. Anxious. Head and Neck: Normal external inspection. Eyes: Pupils equal, round and reactive to light. (Left side of tongue is noted to be mildly swollen. Airway is patent. No drooling.). ENT: Muffled voice. Nose normal. Pharynx normal. No pharyngeal erythema. Neck: Neck supple. CVS: Normal heart rate and rhythm. Heart sounds normal. Respiratory: No respiratory distress. Painless inspiration. Breath sounds normal. Abdomen: Nontender. No organomegaly. Skin: Skin warm and dry. Extremities: Normal external inspection. Extremities nontender. Skin: Normal skin color. No rash. No urticaria. Neuro: Oriented X 3. No motor deficit. No sensory deficit. LABS, X-RAYS, AND EKG Laboratory Tests: CBC + DIFF Final ABHISHEK: 12/27/2023 03:30:00 EDT MsgRcvd: 12/27/2023 03:37 EDT Lab Test Result Reference Status Received Comments 12/27/2023 03:37 CBC-COMPLETE CBC + DIFF Final EDT BLOOD COUNT 12/27/2023 03:37 WBC 6.7 x 10/UL 4.5 - 10.8 Final EDT 12/27/2023 03:37 RBC 4.44 x 10/UL 4.10 - 5.30 Final EDT 12/27/2023 03:37 HEMOGLOBIN 13.4 g/dl 12.0 - 16.0 Final EDT 3 of 9 Narrative 12/27/2023 03:37 HEMATOCRIT 39.7 % 34.0 - 46.0 Final EDT 12/27/2023 03:37 MCV 89 fl 80 - 99 Final EDT 12/27/2023 03:37 MCH 30 pg 27 - 33 Final EDT 12/27/2023 03:37 MCHC 34 X10 3 32 - 36 Final EDT 12/27/2023 03:37 RDW/CV 13.2 % 12.0 - 15.6 Final EDT 12/27/2023 03:37 PLATELET 272 x10/UL 150 - 450 Final EDT 12/27/2023 03:37 AUTOMATED MPV 7.1 fl 6.6 - 10.5 Final EDT DIFFERENTIAL 12/27/2023 03:37 NEUT % 69.7 % 46.0 - 76.0 Final EDT 12/27/2023 03:37 LYMPH % 22.9 % 20.0 - 45.0 Final EDT 12/27/2023 03:37 MONOS % 6.2 % 0.0 - 10.0 Final EDT 12/27/2023 03:37 EO % 0.8 % 0.0 - 7.0 Final EDT 12/27/2023 03:37 BASO % 0.4 % 0.0 - 2.0 Final EDT 12/27/2023 03:37 Lymph # 1.53 x10/UL 0.80 - 2.80 Final EDT 12/27/2023 03:37 Neut # 4.66 x10/UL 1.50 - 7.10 Final EDT 4 of 9 Narrative 12/27/2023 03:37 Maui # 0.41 x10/UL 0.20 - 1.00 Final EDT 12/27/2023 03:37 EO # 0.05 x10/UL 0.00 - 0.50 Final EDT 12/27/2023 03:37 Baso # 0.03 x10/UL 0.00 - 0.10 Final EDT 12/27/2023 03:37 MANUAL DIFF N/A New Order EDT 12/27/2023 03:37 MORPHOLOGY N/A New Order EDT CMP with eGFR Final ABHISHEK: 12/27/2023 03:30:00 EDT MsgRcvd: 12/27/2023 04:01 EDT Lab Test Result Reference Status Received Comments COMPREHENSIVE (more content not included)... Normal [facility] ED SUPER BILLon 12-29-2023 ED SUPER BILL [id number] [place] [address] [phone] 12/27/2023 Patient: DIANA LEE Sex: Female : 1970 Age: 53y Item Facility Professional Category Description Code Code Quantity Fee Total Drugs Normal Saline 845666 1 $0.00 $0.00 1000cc (373572) Nurse/E/M EMERGENCY 780803 1 $0.00 $0.00 DEPARTMENT VISIT HIGH/URGENT SEVERITY (45360-78) Nurse/IV/IM/Infusions Drip/IVPB initial 082285 1 $0.00 $0.00 (62973) Nurse/IV/IM/Infusions IVP additional 865585 2 $0.00 $0.00 push (48132) Grand Total $0.00 Providers Lucie Partida D.O. Chief Complaint 1 of 2 Superbill ALLERGIC REACTION. THROAT SWELLING and FEEL FAINT. Was exposed to paint fumes at home today where they are remodeling. Went to bed feeling fine and then woke up just prior to arrival complaining of her tongue swollen. Principal Diagnosis Acquired angioedema secondary to unknown cause with facial swelling. ICD-10 Codes T78.3xxA: Angioneurotic edema, initial encounter 2 of 2 Normal [facility] ED VISIT SUMMARYon ED VISIT SUMMARY Visit Overview Visit Overview [address] [place] [address] [phone] 12/27/2023 Patient: DIANA LEE Sex: Female : 1970 Age: 53y 12/29/2023 01:00 AM EDT ED Arrival:01:55 12/27/2023 EDT Status: Recent Travel:no Language:eng Adv Directive: Isolation Status: Ethnicity:N Fall Risk:no risk Infectious Disease Exposure:no Measurements:5'5 / 165.1 Self-Harm Status:risk Sepsis Screen:negative cm 215.0 lb / 97.5 kg Chief Complaint:*e POSSIBLE ALLERGIC REACTION and (pt woke up around around 0100 with tongue swelling. She had inhaled paint smell earlier in the evening.) ALLERGIES No Known Drug Allergies HOME MEDICATIONS amlodipine 2.5 mg tablet escitalopram 20 mg tablet estradiol 1 mg tablet levothyroxine 25 mcg tablet 3 Visit Overview lisinopril 40 mg tablet Semaglutide 2.5mg/ml Inj 4ml PAST MEDICAL HISTORY / PROBLEMS Benign essential hypertension Hypothyroidism See nurses notes PAST SURGICAL HISTORY Bariatric Surgery SOCIAL HISTORY Smoking status: No Alcohol use: No Drug use: No ED COURSE MEDICATIONS GIVEN IN EMERGENCY DEPARTMENT 03:20 12/27/23 IV NS 0.9 % 1000 mL 100 mL/hr 03:23 12/27/23 Benadryl IVP 50 mg 03:25 12/27/23 MethylPREDNISolone Sodium Succ (Solu-Medrol) IVP 125 mg 03:25 12/27/23 Pepcid 20mg/50ml Premix IVPB 20 mg 40 mg/hr IV SITE INFORMATION INTAKE OUTPUT REASSESMENT (most recent) 02:46 12/27/23. Ambulatory to room. ( Left side tongue swelling, states started at 0100 today, passed out twice at home.). GENERAL / NEURO / PSYCH: Alert. The patient does not appear to be in acute distress. Oriented X 4. HEENT: Pupils equal, round and reactive to light. Mucous membranes are pink. RESPIRATORY: Respirations not labored. Breath sounds within normal limits. of 3 Visit Overview VITAL SIGNS First Vitals Last Vitals Temp 02:01 12/27/23 97.3 F Temp 04:03 12/27/23 BP 02:01 12/27/23 141/84 BP 04:03 12/27/23 HR 02:01 12/27/23 84 HR 04:03 12/27/23 79 RR 02:01 12/27/23 16 RR 04:03 12/27/23 O2 Sat 02:01 12/27/23 100% O2 Sat 04:03 12/27/23 96% Pain 02:01 12/27/23 0 Pain 04:03 12/27/23 ETCO2 02:01 12/27/23 ETCO2 04:03 12/27/23 GCS 02:01 12/27/23 GCS 04:03 12/27/23 RTS 02:01 12/27/23 RTS 04:03 12/27/23 PROCEDURES NURSING INTERVENTIONS LABS / STUDIES LABS / STUDIES ORDERED CBC w Diff CMP CLINICAL IMPRESSION ACQUIRED ANGIOEDEMA SECONDARY TO UNKNOWN CAUSE WITH FACIAL SWELLING 3 of 3 Normal [facility] ED VITALS FLOW SHEETon 12-28 ED VITALS FLOW SHEET Vitals [place] [address] [phone] 12/27/2023 Patient: DIANA LEE [facility]#: [id number] Sex: Female : 1970 Age: 53y Measurements Wt: 97.5 kg, Ht/Alexi: 65.0 in, BMI: 35.78 Measured Time BP MAP HR RR O2Sat ETCO2 Temp Pain GCS RTS 04:03 12/27/2023 79 96% 04:03 12/27/2023 142/82 102 80 18 98% 02:01 12/27/2023 141/84 103 84 16 100% 97.3 F 0 1 of 1 Normal [facility] CBC + DIFFon 12-27-2023 Baso # 0.03 x10EE3/UL Normal 0.00 - 0.10 [facility] Comment on above: Performed By: #### 2 [id number] #### [facility],[address] [place] [address] Basophils/100 WBC (Bld) 0.4 % Normal 0.0 - 2.0 [facility] Comment on above: Performed By: #### 2 95903 #### [facility],[address] [place] [address] CBC + DIFF Normal [facility] Comment on above: Result Comment: CBC- COMPLETE BLOOD COUNT Performed By: #### 2 [id number] #### [facility],[address] [place] [address] EO # 0.05 x10EE3/UL Normal 0.00 - 0.50 [facility] Comment on above: Performed By: #### 2 [id number] #### [facility],[address] [place], [place] [id number] Eosinophils/100 WBC (Bld) 0.8 % Normal 0.0 - 7.0 [facility] Comment on above: Performed By: #### 2 59694 #### [facility],[address] [place] [address] Erythrocyte distribution width (RBC) [Ratio] 13.2 % Normal 12.0 - 15.6 [facility] Comment on above: Performed By: #### 2 32054 #### [facility],[address] [place] [address] Hematocrit (Bld) [Volume fraction] 39.7 % Normal 34.0 - 46.0 [facility] Comment on above: Performed By: #### 2 63776 #### [facility],[address] [place] [address] Hemoglobin (Bld) [Mass/Vol] 13.4 g/dL Normal 12.0 - 16.0 [facility] Comment on above: Performed By: #### 2 85122 #### [facility],[address] [place] [address] Lymph # 1.53 x10EE3/UL Normal 0.80 - 2.80 [facility] Comment on above: Performed By: #### 2 81011 #### [facility],[address] [place], [place] [id number] Lymphocytes/100 WBC (Bld) 22.9 % Normal 20.0 - 45.0 [facility] Comment on above: Performed By: #### 2 51417 #### [facility],[address] [place], [place] [id number] MANUAL DIFF N/A Normal [facility] Comment on above: Performed By: #### 2 38525 #### [facility],[address] [place], [place] [id number] MCH (RBC) [Entitic mass] 30 pg Normal 27 - 33 [facility] Comment on above: Performed By: #### 2 07044 #### [facility],[address] [place] [address] MCHC 34 X10 3 Normal 32 - 36 [facility] Comment on above: Performed By: #### 2 33202 #### [facility],[address] [place], [place] [id number] MCV (RBC) [Entitic vol] 89 fL Normal 80 - 99 [facility] Comment on above: Performed By: #### 2 53740 #### [facility],[address] [place] [address] Maui # 0.41 x10EE3/UL Normal 0.20 - 1.00 [facility] Comment on above: Performed By: #### 2 44254 #### [facility],[address] [place] [address] MONOS % 6.2 % Normal 0.0 - 10.0 [facility] Comment on above: Performed By: #### 2 01026 #### [facility],[address] [place], [place] [id number] Morphology Cesar (Bld) [Interp] N/A Normal [facility] Comment on above: Performed By: #### 2 70870 #### [facility],[address] [place] [address] Neut # 4.66 x10EE3/UL Normal 1.50 - 7.10 [facility] Comment on above: Performed By: #### 2 13597 #### [facility],[address] [place] [address] Neutrophils/100 WBC (Bld) 69.7 % Normal 46.0 - 76.0 [facility] Comment on above: Performed By: #### 2 68734 #### [facility],[address] [place], [place] [id number] PLATELET 272 x10EE3/UL Normal 150 - 450 [facility] Comment on above: Performed By: #### 2 76067 #### [facility],[address] [place] [address]4639 Platelet mean volume (Bld) [Entitic vol] 7.1 fL Normal 6.6 - 10.5 [facility] Comment on above: Result Comment: AUTO MATED DIFFERENTIAL Performed By: #### 2 45865 #### [facility],[address] [place] [address] 41658 RBC 4.44 x 10EE6/UL Normal 4.10 - 5.30 [facility] Comment on above: Performed By: #### 2 93908 #### [facility],[address] [place] [address] 41162 WBC 6.7 x 10EE3/UL Normal 4.5 - 10.8 [facility] Comment on above: Performed By: #### 2 28781 #### [facility],[address] [place] [address] [phone] CMP with eGFRon 12-27-2023 AGE 53 years Normal [facility] Comment on above: Performed By: #### 2 53614 #### [facility],[address] [place] [address] 02098 Albumin [Mass/Vol] 3.1 g/dL Low 3.4 - 5.0 [facility] Comment on above: Performed By: #### 2 33589 #### [facility],[address] [place] [address] [phone] Albumin/Globulin [Mass ratio] 1.0 {ratio} Normal 0.9 - 1.6 [facility] Comment on above: Performed By: #### 2 54080 #### [facility],[address] [place] [address] 46098 ALK PHOS 81 U/L Normal 46 - 116 [facility] Comment on above: Performed By: #### 2 97825 #### [facility],[address] [place] [address] 68092 ALT [Catalytic activity/Vol] 19 U/L Normal 16 - 63 [facility] Comment on above: Performed By: #### 2 51461 #### [facility],[address] [place] [address] 34913 Anion gap [Moles/Vol] 12 mmol/L Normal 10 - 20 [facility] Comment on above: Performed By: #### 2 23721 #### [facility],[address] [place] [address] 80233 AST [Catalytic activity/Vol] 13 U/L Normal 13 - 39 [facility] Comment on above: Performed By: #### 2 78867 #### [facility],[address] [place] [address] 79126 B/C RATIO 12 ratio Normal 0 - 30 [facility] Comment on above: Performed By: #### 2 72653 #### [facility],[address] [place] [address] 30281 Bilirubin [Mass/Vol] 0.3 mg/dL Normal 0.2 - 1.0 [facility] Comment on above: Performed By: #### 2 87192 #### [facility],[address] [place] [address] 28934 Calcium [Mass/Vol] 8.5 mg/dL Normal 8.5 - 10.1 [facility] Comment on above: Performed By: #### 2 38867 #### [facility],[address] [place] [address] 73502 Chloride [Moles/Vol] 104 mmol/L Normal 98 - 107 [facility] Comment on above: Performed By: #### 2 07133 #### [facility],[address] [place] [address] 62929 CMP with eGFR Normal [facility] Comment on above: Result Comment: COMP REHENSIVE METABOLIC PANEL Performed By: #### 2 54456 #### [facility],[address] [place] [address] 76443 CO2 [Moles/Vol] 29.3 mmol/L Normal 21.0 - 32.0 [facility] Comment on above: Performed By: #### 2 22718 #### [facility],[address] [place] [address] 90262 Creatinine [Mass/Vol] 0.91 mg/dL Normal 0.55 - 1.02 [facility] Comment on above: Performed By: #### 2 69552 #### [facility],[address] [place] [address] 57029 GFR/1.73 sq M.predicted among non-blacks MDRD (S/P/Bld) [Vol rate/Area] mL/min/{1.73_m2} Normal 60 - 999 [facility] Comment on above: Performed By: #### 2 03942 #### [facility],[address] [place] [address] 36834 Result Comment: ACCO RDING TO THE NATIONAL KIDNEY DISEASE EDUCATION PROGRAM(NKDE), A NORMAL eGFR IS A VALUE GREATER THAN OR EQUAL TO 60 ML/MIN/1.73 SQ METERS. CHRONIC KIDNEY DISEASE: <60mL/MIN/1.73 SQ METERS KIDNEY FAILURE: <15mL/MIN/1.73 SQ METERS THIS TEST SHOULD ONLY BE USED FOR PATIENTS 18 YEARS OF AGE AND OLDER. Globulin (S) [Mass/Vol] 3.2 g/dL Normal 1.5 - 3.8 [facility] Comment on above: Performed By: #### 2 03212 #### [facility],[address] [place] [address] [phone] Glucose [Mass/Vol] 91 mg/dL Normal 74 - 106 [facility] Comment on above: Performed By: #### 2 09494 #### [facility],[address] [place] [address] 82546 Potassium [Moles/Vol] 3.7 mmol/L Normal 3.5 - 5.1 [facility] Comment on above: Performed By: #### 2 [id number] #### [facility],[address] [place] [address] 44874 Protein [Mass/Vol] 6.3 g/dL Low 6.4 - 8.2 [facility] Comment on above: Performed By: #### 2 31961 #### [facility],[address] [place] [address] 42103 Sodium [Moles/Vol] 142 mmol/L Normal 136 - 145 [facility] Comment on above: Performed By: #### 2 03356 #### [facility],[address] [place] [address] 11736 Urea nitrogen [Mass/Vol] 11 mg/dL Normal 7 - 18 [facility] Comment on above: Performed By: #### 2 82847 #### [facility],[address] [place] [address] 29829 ED FACILITY CODING SUMMARYon 12-15-2023 ED FACILITY CODING SUMMARY Facility Coding Facility Coding Summary [address] [address] [id number] 12/14/2023 Patient: DIANA LEE Sex: Female : 1970 Age: 53y Providers: Cole Puga D.O. DIAGNOSTIC WORKUP Chief Complaint CHEST PAIN. -- Cole Puga D.O. Principal Diagnosis ICD-10 Codes PROCEDURES Procedures from Providers: EKG (Insufficient documentation to return CPT code.) -- Cole Puga D.O. Procedures from Nurses/Facility: EKG (CPT: 64842) Blood Draw (CPT: 81903) Blood Draw (CPT: 17250) SUPPLIES [facility] 54145-68 1 of 2 Facility Coding This is a partial abstract of information documented in the full record. Tax Revenue Officer must use independent judgment in selecting codes. CPT copyright 2022 [employer]. All Rights Reserved. 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 [address] [phone] 12/14/2023 Patient: DIANA LEE Sex: Female : 1970 Age: 53y Disposition: Discharge to Home Disposition Decision Time: 20:26 12/14/2023 Departure Time: 20:45 12/14/2023 TRIAGE Arrived by private vehicle. Historian: patient. Accompanied by family. Triage time: 16:24 12/14/2023. Acuity: LEVEL 3. Chief Complaint: CHEST PAIN and DISCOMFORT. Onset. (2 days). The patient has had difficulty breathing and nausea. SEPSIS SCREEN: NEGATIVE. SIRS criteria negative. No possible sources of infection. -- 16:38 12/14/23 EDT Damir Condon R.N. 16:37 12/14/23. BP: 171/99 MAP: 123. HR: 79. RR: 12. O2 saturation: 98% Temperature: 98.9 F. Pain level now 3/10. -- 16:37 12/14/23 EDT Damir Condon R.N. Measurements: 16:37 12/14/23 Wt: 95.3 kg -- 16:37 12/14/23 EDT Damir Condon R.N. Medications: unable to obtain home medications -- 16:35 12/14/23 EDT Damir Condon R.N. amlodipine 2.5 mg tablet -- 18:02 12/14/23 EDT Minoo Gan R.N. 1 of 4 Nurse Narrative Semaglutide 2.5mg/ml Inj 4ml: INJECT 0.1 milliliters SUBCUTANEOUSLY WEEKLY FOR 4 WEEKS THEN INCREASE TO 0.2 ML SUBCUTANEOUSLY WEEKLY FOR 4 WEEKS -- 18:02 12/14/23 EDT Minoo Gan R.N. escitalopram 20 mg tablet -- 18:02 12/14/23 EDT Minoo Gan R.N. lisinopril 40 mg tablet -- 18:02 12/14/23 EDT Minoo Gan R.N. levothyroxine 25 mcg tablet -- 18:02 12/14/23 EDT Minoo Gan R.N. estradiol 1 mg tablet -- 18:02 12/14/23 EDT Minoo Gan R.N. Allergies: no known drug allergies -- 16:35 12/14/23 BRYSONT Damir Condon R.N. Problems: Benign essential hypertension -- 16:35 12/14/23 BRYSONT Damri Condon R.N. Hypothyroidism -- 16:35 12/14/23 EDT Damir Condon R.N. ADDITIONAL SURGERIES: -- 16:35 12/14/23 BRYSONT Damir Cnodon R.N. Bariatric Surgery -- 16:35 12/14/23 BRYSONT Damir Condon R.N. History 16:24 12/14/23. SOCIAL HX: Never smoker. No alcohol use or drug use. The patient has not traveled outside the [place] Infectious disease exposure: No infectious disease exposure. ABUSE ASSESSMENT: The patient answered yes to the question(s) Do you feel safe in your home? and no to the question(s) Are you afraid to go home?. SELF HARM ASSESSMENT: Self harm assessment was performed. The patient answered no to the question(s) Have you recently felt down, depressed, or hopeless? and Do you have thoughts of harming or killing yourself?. FALL RISK ASSESSMENT: Fall risk assessment completed. Risk factors identified include dizziness. -- 16:38 12/14/23 OCTAVIO Condon R.N. 2 of 4 Nurse Narrative Interventions 16:24 12/14/23. Advanced care plan discussed with patient. Patient does not have advanced directive. -- 16:38 12/14/23 BRYSONT Damir Condon R.N. PHYSICAL ASSESSMENT 16:39 12/14/23. Ambulatory to room. ( Patient complains of two day hx of chest discomfort and dizziness.). GENERAL / NEURO / PSYCH: Alert. Oriented X 4. Appears anxious. HEENT: Mucous membranes are pink. RESPIRATORY: Respirations not labored. Chest nontender. Breath sounds within normal limits. CVS: Normal sinus rhythm noted. Heart sounds within normal limits. Pulses within normal limits. Capillary refill less than 2 seconds. GI / : Abdomen soft and nontender. EXTREMITIES: No lower extremity edema. SKIN: Skin is warm and dry. Normal skin turgor. Skin is non-tender. -- 16:39 12/14/23 EDT Damir Condon R.N. NURSING PROGRESS NOTES 16:31 12/14/23. Site #1 started via IV in the right antecubital space with an 18g angiocath with aseptic technique and good blood return; 1 attempt. Blood drawn: rainbow set tube(s). Labeled in the presence of the patient and sent to the lab. Saline lock flushed with 5 mL saline. -- 16:37 12/14/23 EDT John Bryant E.M.T.-P. 16:46 12/14/23. 12-LEAD EKG: EKG time: (16:32 12/14/2023). 12-Lead EKG was performed by me and shown to the ED physician. -- 16:46 12/14/23 EDT Damir Condon R.N. 19:00 12/14/23. Patient ID band checked for patient name and birthdate: patient confirmed. Blood samples drawn from the right antecubital space peripheral IV site by me: green top; cardiac enzymes (2nd set). Line flushed with 5 mL normal saline post blood draw. -- 19:08 12/14/23 OCTAVIO Condon R.N. DISPOSITION / DISCHARGE 20:44 12/14/23. Site #1 removed upon discharge. Bandage applied. -- 20:44 12/14/23 BRYSONT Damir Condon R.N. Departure time: 20:45 12/14/2023. Condition at departure: improved. No learning barriers present. Discharge instructions provided and reviewed with the patient. The patient was discharged home and accompanied by family. The patient left ambulatory and via private vehicle. Spouse driving. -- 20:45 12/14/23 EDT Damir Condon R.N. 20:45 (more content not included)... Normal [facility] ED ORDER SHEET (CPOE ONLY)on 12-15-2023 ED ORDER SHEET (CPOE ONLY) Order Sheet Order Sheet [place] [address] [place] [address] [id number] 12/14/2023 [id number] Sex: Female : 1970 Age: 53y MEASUREMENTS: Wt: 95.3 kg ALLERGIES: No known drug allergies MEDICATION/IV/DRIP/FLUID ORDERS Order Description Priority Entered Acknowledged Completed LAB ORDERS Order Description Priority Entered Acknowledged Collected Completed CBC w Diff Stat Stat 16:46 12/14/2023 16:49 12/14/2023 Damir Bailon D.O. R.N. BNP Stat Stat 16:46 12/14/2023 16:49 12/14/2023 Damir Bailon D.O. R.N. CMP Stat Stat 16:46 12/14/2023 16:49 12/14/2023 Damir Bailon D.O. R.N. Troponin-I (Sched: q3h Stat 16:46 12/14/2023 16:49 12/14/2023 X2); Stat 1 of 2 Damir Bailon, 1 of 3 Order Sheet Steven Starkey Troponin-I (Sched: q3h Stat 16:46 12/14/2023 X2); Stat 2 of 2 Cole Puga D.O. D-Dimer Stat Stat 16:46 12/14/2023 16:49 12/14/2023 Damir Bailon D.O. R.N. EKG - ED Stat Stat 16:46 12/14/2023 16:49 12/14/2023 Damir Bailon D.O. R.N. Troponin-I (Sched: q1h Stat 19:14 12/14/2023 19:14 12/14/2023 1h); Stat 1 of 1 Damir Riddle R.N. R.N. Verbal Order, Auth by: Cole Puga D.O. Read back and verified DIAGNOSTIC STUDY ORDERS Order Description Priority Entered Acknowledged Completed Chest 1V Stat Stat 16:46 12/14/2023 16:49 Cole Puga 12/14/2023 Steven Condon R.N. Order Comments: 16:46 12/14/2023: Status: Not . Cole Puga D.O. Reason for Study: Chest Pain STAFF ORDERS 2 of 3 Order Sheet Order Description Priority Entered Acknowledged Collected Completed IV Saline Lock 16:46 12/14/2023 16:50 12/14/2023 Damir Bailon D.O. R.N. Oxygen titrate to 92% 16:46 12/14/2023 16:50 12/14/2023 Damir Bailon D.O. R.N. National Account Representative 16:46 12/14/2023 16:50 12/14/2023 Damir Bailon D.O. R.N. Vital signs every 15 16:46 12/14/2023 16:50 12/14/2023 minutes Damir Bailon D.O. R.N. [Electronically signed by Cole Puga D.O. (12/15/2023 00:39 EDT)] 3 of 3 Normal [facility] ED PHYS CODING ABST SUMMARYo n 12-15-2023 ED PHYS CODING ABST SUMMARY Coding Summary Coding Summary [address] [address] [id number] 12/14/2023 Patient: DIANA LEE Sex: Female : 1970 Age: 53y CPT Codes EKG (Insufficient documentation to return CPT code.) This is a partial abstract of information documented in the full record. Tax Revenue Officer must use independent judgment in selecting codes. CPT copyright 2022 [employer]. All Rights Reserved. 1 of 1 Normal [facility] ED PHYSICIAN CLINICAL REPORT on 12-15-2023 ED PHYSICIAN CLINICAL REPORT Narrative Physician Clinical Narrative [address] [address] [id number] 12/14/2023 Patient: DIANA LEE Sex: Female : 1970 Age: 53y Disposition: Discharge to Home Disposition Decision Time: 20:26 12/14/2023 Departure Time: 20:45 12/14/2023 Measurements Wt: 95.3 kg Initial Vital Sign Measured Time BP MAP HR RR O2Sat ETCO2 Temp Pain GCS RTS 16:37 12/14/2023 82 99% Time Seen: 16:36 12/14/2023. Arrived- By private vehicle. Historian- patient. Independent historian- family. HISTORY OF PRESENT ILLNESS Chief Complaint: CHEST PAIN. It is described as pressure and it is described as located in the central chest area. This started 2 days and is still present. When seen in the E.D., severity described as 4 / 10. The patient has had difficulty breathing and nausea and has experienced diaphoresis. (patient has had intermittent pain since . Sed rate now it is 4/10 it is worse when he exerts herself sometimes it goes away it is substernal. She just started Ozempic yesterday she denies any recent travel trauma or surgeries. She does have a history of hypertension and a positive family history. She had bariatric surgery approximately 10 years ago). REVIEW OF SYSTEMS 1 of 10 Narrative CONSTITUTIONAL: The patient has had fever and chills. RESPIRATORY: The patient has had a cough. CVS: No pedal edema or calf pain. Status: Not . PAST HISTORY Benign essential hypertension Hypothyroidism Surgeries: Bariatric Surgery Medications: unable to obtain home medications Allergies: no known drug allergies SOCIAL HISTORY Never smoker. No alcohol use. FAMILY HISTORY History of heart disease in multiple family members in first-degree relative (mother and father). ADDITIONAL NOTES The nursing notes have been reviewed. PHYSICAL EXAM Appearance: Alert. Oriented X3. No acute distress. Anxious. Eyes: Eyes normal inspection. ENT: Ears normal. Nose normal. Neck: Normal inspection. CVS: Normal heart rate. Heart sounds normal. 2 of 10 Narrative Respiratory: No respiratory distress. Breath sounds normal. Chest nontender. Abdomen: Soft and nontender. Back: Normal external inspection. Skin: Skin warm. Normal skin color. Normal skin turgor. Extremities: Extremities exhibit normal ROM. Neuro: Oriented X 3. No motor deficit. LABS, X-RAYS, AND EKG 12-LEAD EKG: EKG time: 16:39 12/14/2023. Normal sinus rhythm. Rate: 83. Q waves in lead V1 and V2. Prior EKG unavailable. The study has been interpreted contemporaneously by me. The EKG appears to be a good tracing. Interpretation time: 16:39 12/14/2023. Chest X-ray: No acute disease. Normal lung markings present. Normal heart size. No infiltrate. No fracture. No bony lesion present. Views: PA and lateral. Technique: good. The X-rays were interpreted contemporaneously by me. Interpretation time: 19:56 12/14/2023. Laboratory Tests: CBC + DIFF Final ABHISHEK: 12/14/2023 16:31:00 EDT MsgRcvd: 12/14/2023 17:05 EDT Lab Test Result Reference Status Received Comments 12/14/2023 17:05 CBC-COMPLETE CBC + DIFF Final EDT BLOOD COUNT 12/14/2023 17:05 WBC 10.7 x 10/UL 4.5 - 10.8 Final EDT 5.32 x 10/UL 12/14/2023 17:05 RBC 4.10 - 5.30 Final Above high normal EDT 16.2 g/dl 12/14/2023 17:05 HEMOGLOBIN 12.0 - 16.0 Final Above high normal EDT 47.7 % 12/14/2023 17:05 HEMATOCRIT 34.0 - 46.0 Final Above high normal EDT 3 of 10 Narrative 12/14/2023 17:05 MCV 90 fl 80 - 99 Final EDT 12/14/2023 17:05 MCH 30 pg 27 - 33 Final EDT 12/14/2023 17:05 MCHC 34 X10 3 32 - 36 Final EDT 12/14/2023 17:05 RDW/CV 13.5 % 12.0 - 15.6 Final EDT 12/14/2023 17:05 PLATELET 352 x10/UL 150 - 450 Final EDT 12/14/2023 17:05 AUTOMATED MPV 7.0 fl 6.6 - 10.5 Final EDT DIFFERENTIAL 12/14/2023 17:05 NEUT % 67.6 % 46.0 - 76.0 Final EDT 12/14/2023 17:05 LYMPH % 26.7 % 20.0 - 45.0 Final EDT 12/14/2023 17:05 MONOS % 4.5 % 0.0 - 10.0 Final EDT 12/14/2023 17:05 EO % 0.9 % 0.0 - 7.0 Final EDT 12/14/2023 17:05 BASO % 0.3 % 0.0 - 2.0 Final EDT 2.86 x10/UL 12/14/2023 17:05 Lymph # 0.80 - 2.80 Final Above high normal EDT 7.24 x10/UL 12/14/2023 17:05 Neut # 1.50 - 7.10 Final Above high normal EDT 12/14/2023 17:05 [place] # 0.48 x10/UL 0.20 - 1.00 Final EDT 4 of 10 Narrative 12/14/2023 17:05 EO # 0.10 x10/UL 0.00 - 0.50 Final EDT 12/14/2023 17:05 Baso # 0.03 x10/UL 0.00 - 0.10 Final EDT 12/14/2023 17:05 MANUAL DIFF N/A New Order EDT 12/14/2023 17:05 MORPHOLOGY N/A New Order EDT CMP with eGFR Final ABHISHEK: 12/14/2023 16:31:00 EDT MsgRcvd: 12/14/2023 17:29 EDT Lab Test Result Reference Status Received Comments (more content not included)... Normal [facility] ED SUPER BILLon 12-15-2023 ED SUPER BILL [address] [address] [id number] 12/14/2023 Patient: DIANA LEE Sex: Female : 1970 Age: 53y Item Professional Category Description Facility Code Code Quantity Fee Total Nurse/E/M EMERGENCY 153217 1 $0.00 $0.00 DEPARTMENT VISIT HIGH/URGENT SEVERITY (45849-67) Grand Total $0.00 Providers Cole Puga D.O. Chief Complaint CHEST PAIN. Principal Diagnosis 1 of 1 Normal [facility] ED VISIT SUMMARYon 4 ED VISIT SUMMARY Visit Overview Visit Overview [address] [address] [id number] 12/14/2023 Patient: DIANA LEE Sex: Female : 1970 Age: 53y 12/15/2023 12:39 AM EDT ED Arrival:16:26 12/14/2023 EDT Status:not Recent Travel:no Language:eng Adv Directive:No Isolation Status: Ethnicity:N Fall Risk:risk Infectious Disease Exposure:no Measurements:210.0 lb / 95.3 kg Self-Harm Status:risk Sepsis Screen:negative Chief Complaint:CHEST DISCOMFORT, CHEST PAIN, and (2 days) ALLERGIES No Known Drug Allergies HOME MEDICATIONS Unable To Obtain PAST MEDICAL HISTORY / PROBLEMS Benign essential hypertension Hypothyroidism 1 of 3 Visit Overview PAST SURGICAL HISTORY Bariatric Surgery SOCIAL HISTORY Smoking status: No Alcohol use: No Drug use: No ED COURSE MEDICATIONS GIVEN IN EMERGENCY DEPARTMENT IV SITE INFORMATION INTAKE OUTPUT REASSESMENT (most recent) 16:39 12/14/23. Ambulatory to room. ( Patient complains of two day hx of chest discomfort and dizziness.). GENERAL / NEURO / PSYCH: Alert. Oriented X 4. Appears anxious. HEENT: Mucous membranes are pink. RESPIRATORY: Respirations not labored. Chest nontender. Breath sounds within normal limits. CVS: Normal sinus rhythm noted. Heart sounds within normal limits. Pulses within normal limits. Capillary refill less than 2 seconds. GI / : Abdomen soft and nontender. EXTREMITIES: No lower extremity edema. SKIN: Skin is warm and dry. Normal skin turgor. Skin is non-tender. VITAL SIGNS First Vitals Last Vitals Temp 16:37 12/14/23 Temp 20:45 12/14/23 98.5 F BP 16:37 12/14/23 BP 20:45 12/14/23 126/80 HR 16:37 12/14/23 82 HR 20:45 12/14/23 72 RR 16:37 12/14/23 RR 20:45 12/14/23 12 O2 Sat 16:37 12/14/23 99% O2 Sat 20:45 12/14/23 97% Pain 16:37 12/14/23 Pain 20:45 12/14/23 0 2 of 3 Visit Overview First Vitals Last Vitals ETCO2 16:37 12/14/23 ETCO2 20:45 12/14/23 GCS 16:37 12/14/23 GCS 20:45 12/14/23 RTS 16:37 12/14/23 RTS 20:45 12/14/23 PROCEDURES NURSING INTERVENTIONS LABS / STUDIES LABS / STUDIES ORDERED BNP CBC w Diff Chest 1V CMP D-Dimer EKG - ED Troponin-I Troponin-I Troponin-I CLINICAL IMPRESSION POSSIBLE CHEST PAIN CHARACTERIZED DISCOMFORT 3 of 3 Normal [facility] CBC + DIFFon 12-14-2023 Baso # 0.03 x10EE3/UL Normal 0.00 - 0.10 [facility] Comment on above: Performed By: #### 2 [id number] #### [facility],[address] [place] [address] Basophils/100 WBC (Bld) 0.3 % Normal 0.0 - 2.0 [facility] Comment on above: Performed By: #### 2 15665 #### [facility],[address] [place] [address] CBC + DIFF Normal [facility] Comment on above: Result Comment: CBC- COMPLETE BLOOD COUNT Performed By: #### 2 75387 #### [facility],[address] [place] [address] EO # 0.10 x10EE3/UL Normal 0.00 - 0.50 [facility] Comment on above: Performed By: #### 2 90229 #### [facility],[address] [place] [address] Eosinophils/100 WBC (Bld) 0.9 % Normal 0.0 - 7.0 [facility] Comment on above: Performed By: #### 2 22649 #### [facility],[address] [place] [address] Erythrocyte distribution width (RBC) [Ratio] 13.5 % Normal 12.0 - 15.6 [facility] Comment on above: Performed By: #### 2 47166 #### [facility],[address] [place] [address] Hematocrit (Bld) [Volume fraction] 47.7 % High 34.0 - 46.0 [facility] Comment on above: Performed By: #### 2 36701 #### [facility],[address] [place] [address] Hemoglobin (Bld) [Mass/Vol] 16.2 g/dL High 12.0 - 16.0 [facility] Comment on above: Performed By: #### 2 03644 #### [facility],[address] [place] [address] Lymph # 2.86 x10EE3/UL High 0.80 - 2.80 [facility] Comment on above: Performed By: #### 2 96956 #### [facility],[address] [place] [address] Lymphocytes/100 WBC (Bld) 26.7 % Normal 20.0 - 45.0 [facility] Comment on above: Performed By: #### 2 43493 #### [facility],[address] [place] [address] MANUAL DIFF N/A Normal [facility] Comment on above: Performed By: #### 2 66830 #### [facility],[address] [place] [address] MCH (RBC) [Entitic mass] 30 pg Normal 27 - 33 [facility] Comment on above: Performed By: #### 2 72429 #### [facility],[address] [place] [address] MCHC 34 X10 3 Normal 32 - 36 [facility] Comment on above: Performed By: #### 2 15394 #### [facility],[address] [place], [place] [id number] MCV (RBC) [Entitic vol] 90 fL Normal 80 - 99 [facility] Comment on above: Performed By: #### 2 50929 #### [facility],[address] [place] [address] [place] # 0.48 x10EE3/UL Normal 0.20 - 1.00 [facility] Comment on above: Performed By: #### 2 25406 #### [facility],[address] [place] [id number] MONOS % 4.5 % Normal 0.0 - 10.0 [facility] Comment on above: Performed By: #### 2 33742 #### [facility],[address] [place] [phone] Morphology Cesar (Bld) [Interp] N/A Normal [facility] Comment on above: Performed By: #### 2 49964 #### [facility],[address] [place] [id number] Neut # 7.24 x10EE3/UL High 1.50 - 7.10 [facility] Comment on above: Performed By: #### 2 94610 #### [facility],[address] [place] [address] Neutrophils/100 WBC (Bld) 67.6 % Normal 46.0 - 76.0 [facility] Comment on above: Performed By: #### 2 28139 #### [facility],[address] [place] [address] PLATELET 352 x10EE3/UL Normal 150 - 450 [facility] Comment on above: Performed By: #### 2 12182 #### [facility],[address] [place] [address] Platelet mean volume (Bld) [Entitic vol] 7.0 fL Normal 6.6 - 10.5 [facility] Comment on above: Result Comment: AUTO MATED DIFFERENTIAL Performed By: #### 2 29019 #### [facility],[address] [place] [address]70 RBC 5.32 x 10EE6/UL High 4.10 - 5.30 [facility] Comment on above: Performed By: #### 2 59866 #### [facility],[address] [place] [address] WBC 10.7 x 10EE3/UL Normal 4.5 - 10.8 [facility] Comment on above: Performed By: #### 2 00823 #### [facility],[address] [place] [id number] CHEST 1 VIEWon 12-14-2023 CHEST 1 VIEW [place] [address] Patient: DIANA LEE Phone#: : 1970 Age: 53 Gender: F Pt. Type: ER Account: [id number] Location: 052 Ordering: COLE PUGA Exam Date: 12/14/2023/16:51 Family Phys: Charge Code: 749913 Physician: [place] Order #: [id number] Dose#: PROCEDURE: X-RAY CHEST 1 VIEW COMPARISON: None. INDICATIONS: Chest pain. FINDINGS: LUNGS: Normal. No significant pulmonary parenchymal abnormalities. VASCULATURE: Normal. Unremarkable pulmonary vasculature. CARDIAC: Cardiomegaly MEDIASTINUM: Normal. No visible mass or adenopathy. PLEURA: Normal. No effusion or pleural thickening. BONES: Normal. No fracture or visible bony lesion. OTHER: Negative. CONCLUSION: 1. No acute pulmonary parenchymal abnormality 2. Cardiomegaly Dictated by: Theresa Hsieh MD on 12/14/2023 at 22:32 Approved by: Theresa Hsieh MD on 12/14/2023 at 22:37 Normal [facility] CMP with eGFRon 12-14-2023 AGE 53 years Normal [facility] Comment on above: Performed By: #### 2 82247 #### [facility],[address] [place] [id number] Albumin [Mass/Vol] 3.9 g/dL Normal 3.4 - 5.0 [facility] Comment on above: Performed By: #### 2 29390 #### [facility],[address] [place] [address] 16481 Albumin/Globulin [Mass ratio] 1.1 {ratio} Normal 0.9 - 1.6 [facility] Comment on above: Performed By: #### 2 50133 #### [facility],[address] [place] [address] ALK PHOS 117 U/L High 46 - 116 [facility] Comment on above: Performed By: #### 2 95798 #### [facility],[address] [place] [address]2357 ALT [Catalytic activity/Vol] 25 U/L Normal 16 - 63 [facility] Comment on above: Performed By: #### 2 62832 #### [facility],[address] [place] [address] Anion gap [Moles/Vol] 15 mmol/L Normal 10 - 20 [facility] Comment on above: Performed By: #### 2 78596 #### [facility],[address] [place], [place] [id number] AST [Catalytic activity/Vol] 12 U/L Low 13 - 39 [facility] Comment on above: Performed By: #### 2 06324 #### [facility],[address] [place], [place] [id number] B/C RATIO 19 ratio Normal 0 - 30 [facility] Comment on above: Performed By: #### 2 [id number] #### [facility],[address] [place] [address] Bilirubin [Mass/Vol] 0.4 mg/dL Normal 0.2 - 1.0 [facility] Comment on above: Performed By: #### 2 06239 #### [facility],[address] [place] [address] Calcium [Mass/Vol] 8.9 mg/dL Normal 8.5 - 10.1 [facility] Comment on above: Performed By: #### 2 29188 #### [facility],[address] [place] [address] 97599 Chloride [Moles/Vol] 100 mmol/L Normal 98 - 107 [facility] Comment on above: Performed By: #### 2 97694 #### [facility],[address] [place] [address] CMP with eGFR Normal [facility] Comment on above: Result Comment: COMP REHENSIVE METABOLIC PANEL Performed By: #### 2 00696 #### [facility],[address] [place] [address] CO2 [Moles/Vol] 28.7 mmol/L Normal 21.0 - 32.0 [facility] Comment on above: Performed By: #### 2 70783 #### [facility],[address] [place] [address] Creatinine [Mass/Vol] 0.88 mg/dL Normal 0.55 - 1.02 [facility] Comment on above: Performed By: #### 2 97621 #### [facility],[address] [place] [address] GFR/1.73 sq M.predicted among non-blacks MDRD (S/P/Bld) [Vol rate/Area] mL/min/{1.73_m2} Normal 60 - 999 [facility] Comment on above: Performed By: #### 2 58569 #### [facility],[address] [place] [address] Result Comment: ACCO RDING TO THE NATIONAL KIDNEY DISEASE EDUCATION PROGRAM(NKDE), A NORMAL eGFR IS A VALUE GREATER THAN OR EQUAL TO 60 ML/MIN/1.73 SQ METERS. CHRONIC KIDNEY DISEASE: <60mL/MIN/1.73 SQ METERS KIDNEY FAILURE: <15mL/MIN/1.73 SQ METERS THIS TEST SHOULD ONLY BE USED FOR PATIENTS 18 YEARS OF AGE AND OLDER. Globulin (S) [Mass/Vol] 3.7 g/dL Normal 1.5 - 3.8 [facility] Comment on above: Performed By: #### 2 04714 #### [facility],[address] [place] [address] Glucose [Mass/Vol] 93 mg/dL Normal 74 - 106 [facility] Comment on above: Performed By: #### 2 67742 #### [facility],[address] [place] [address] 48406 Potassium [Moles/Vol] 3.3 mmol/L Low 3.5 - 5.1 [facility] Comment on above: Performed By: #### 2 52376 #### [facility],[address] [place] [address] 77699 Protein [Mass/Vol] 7.6 g/dL Normal 6.4 - 8.2 [facility] Comment on above: Performed By: #### 2 71376 #### [facility],[address] [place] [address] 62106 Sodium [Moles/Vol] 140 mmol/L Normal 136 - 145 [facility] Comment on above: Performed By: #### 2 94572 #### [facility],[address] [place] [address] 37909 Urea nitrogen [Mass/Vol] 17 mg/dL Normal 7 - 18 [facility] Comment on above: Performed By: #### 2 83432 #### [facility],[address] [place] [address] 20434 D-DIMER, QUANTITATIVEon 11-25 D-DIMER QUANT <200 Normal 0 - 230 [facility] Comment on above: Performed By: #### 2 65026 #### [facility],[address] [place] [address] 93530 D-DIMER, QUANTITATIVE Normal [facility] Comment on above: Result Comment: NIGEL T D-DIMER Performed By: #### 2 91467 #### [facility],[address] [place] [address] 32142 NT-proBNPon 12-14-2023 Natriuretic peptide B (Bld) [Mass/Vol] 68 pg/mL Normal 0 - 125 [facility] Comment on above: Performed By: #### 2 48496 #### [facility],[address] [place] [address] 03615 TROPONINon 12-14-2023 HS TROPONIN 9.5 pg/mL Normal 0.0 - 51.4 [facility] Comment on above: Performed By: #### 2 90521 #### [facility],[address] [place] [address] 87338 HS TROPONIN 7.0 pg/mL Normal 0.0 - 51.4 [facility] Comment on above: Performed By: #### 2 48061 #### [facility],[address] [place] [address] 15348 Basophil percentageOrdered B y: Shraddha Holley on 05-27-2023 Basophil percentage < 1.0 mg/dL 0.55-1.02 [facility] No Panel InformationOrdered By: Shraddha Carpenteron on 05-27-2023 Bedside Estimated GFR (eGFR) > 60.0000 mL/min >60 [facility] DHEA-S (DEHYDROEPIANDROSTERO NE SULFATE) ([id number])Ordered By: Tree Specialist on 09-21-2022 DHEA-S [Mass/Vol] 71.7 ug/dL Normal 41.2-243.7 Compreh ensive Internal [facility]; [facility] Work Phone: Comment on above: PATIENT WAS FASTINGP ERFORMED BY: [facility] PizzaAtrium Health Waxhaw [id number] BY: [employer] [id number] FERRITIN (43646)Ordered By: Tree Specialist on 09-21-2022 Ferritin [Mass/Vol] 74 ng/mL Normal 15-150 Compr ehensive Internal Medicine; [facility] Work Phone: Comment on above: PATIENT WAS FASTINGP ERFORMED BY: [employer] Sfswwe3120 [address] IncubatorDublin [place] [id number] BY: [employer] [place] [address] [id number] IRON & TOTAL IRON BINDING CA PACITY (80496)Ordered By: Tree Specialist on 09-21-2022 Iron [Mass/Vol] 135 ug/dL Normal 27-159 Comprehen sive Internal Medicine; [facility] Work Phone: Comment on above: PATIENT WAS FASTINGP ERFORMED BY: AMIRA [facility] Hjohjs0844 [facility] [id number] BY: [address] [id number] Iron binding capacity [Mass/Vol] 301 ug/dL Normal 250-450 Comprehensiv e Internal Medicine; [facility] Work Phone: Comment on above: PATIENT WAS FASTINGP ERFORMED BY: AMIRA [facility] Hrrszo2872 [facility] [id number] BY: Lab[address] [id number] Iron binding capacity.unsaturate d [Mass/Vol] 166 ug/dL Normal 131-425 [facility]; [facility] Work Phone: Comment on above: PATIENT WAS FASTINGP ERFORMED BY: AMIRA [facility] Jtegvx4300 [facility] [id number] BY: [address] [id number] Iron saturation [Mass fraction] 45 % Normal 15-55 [facility]; [facility] Work Phone: Comment on above: PATIENT WAS FASTINGP ERFORMED BY: AMIRA Labmatilde MariePotwci8568 [facility] [id number] BY: [address] [id number] TBG (THYROXINE BINDING GLOB) (66278)Ordered By: Tree Specialist on 09-21-2022 TBG [Mass/Vol] 30 ug/mL Normal 13-39 Comprehens thomas Internal Medicine; [facility] Work Phone: Comment on above: PATIENT WAS FASTINGP ERFORMED BY: AMIRA [facility] Pqnmma0236 [facility] [id number] BY: [address] [id number] THYROXINE FREE (35538)Ordere d By: Tree Specialist on 09-21-2022 Free T4 [Mass/Vol] 0.95 ng/dL Normal 0.82-1.77 [facility] Internal [facility]; [facility] Work Phone: Comment on above: PATIENT WAS FASTINGP ERFORMED BY: Mieple70 [facility] [id number] BY: LabEcometricaKessler Institute for RehabilitationZdfgslfefb8818 [facility] [id number] TSH (THYROID STIMULATING HOR TAYE) (97955)Ordered By: Tree Specialist on 09-21-2022 TSH Qn 2.330 {uIU/mL} Normal 0.450-4.50 0 [facility]; [facility] Work Phone: Comment on above: PATIENT WAS FASTINGP ERFORMED BY: Mieple70 [facility] [id number] BY: Suja JuiceKessler Institute for RehabilitationUkqxmedgpd1245 [facility] [id number] CALCIFEDIOL (38964)Ordered B y: Tree Specialist on 07-06-2022 25-hydroxyvitamin D [Mass/Vol] 53.9 ng/mL Normal 30.0-100.0 [facility]; [facility] Work Phone: Comment on above: Vitamin D deficiency has been defined by the [place] ofMedicine and an Endocrine Society practice guideline as alevel of serum 25-OH vitamin D less than 20 ng/mL (1,2).The Endocrine Society went on to further define vitamin Dinsufficiency as a level between 21 and 29 ng/mL (2).1. IOM ([place] of Medicine). 2010. Dietary reference intakes for calcium and D. [place]: The National Academies Press.2. Brice MF, Olu [place], Jennifer JIMENEZ, et al. Evaluation, treatment, and prevention of vitamin D deficiency: an Endocrine Society clinical practice guideline. JCEM. 2010; 96(7):1911-30. PATIENT WAS FASTINGP ERFORMED BY: [employer] Bvbsuv4603 [facility] [id number] CBC, PLATELETS & AUT DIFF (4 1768)Ordered By: Tree Specialist on 07-06-2022 Basophils (Bld) [#/Vol] 0.1 10*3/uL Normal 0.0-0.2 [facility]; [facility] Work Phone: Comment on above: PATIENT WAS FASTINGP ERFORMED BY: AMIRA [facility] Bodoqv6015 Allen RoadDublin [place] [id number] Basophils/100 WBC (Bld) 1 % Normal [facility]; [facility] Work Phone: Comment on above: PATIENT WAS FASTINGP ERFORMED BY: CB [facility] Vgngvn1303 [address] RoadDublin [place] [id number] Eosinophils (Bld) [#/Vol] 0.1 10*3/uL Normal 0.0-0.4 [facility]; [facility] Work Phone: Comment on above: PATIENT WAS FASTINGP ERFORMED BY: [facility] Nytqua3283 [address] RoadDublin [place] [id number] Eosinophils/100 WBC (Bld) 1 % Normal [facility]; [facility] Work Phone: Comment on above: PATIENT WAS FASTINGP ERFORMED BY: [facility] Xagrmy1420 [address] RoadDublin [place] [id number] Erythrocyte distribution width (RBC) [Ratio] 12.5 % Normal 11.7-15.4 [facility]; [facility] Work Phone: Comment on above: PATIENT WAS FASTINGP ERFORMED BY: [facility] Zftxht7567 [address] RoadDublin [place] [id number] Hematocrit (Bld) [Volume fraction] 43.6 % Normal 34.0-46.6 [facility]; [facility] Work Phone: Comment on above: PATIENT WAS FASTINGP ERFORMED BY: [facility] Kwhrla7352 [address] RoadDublin [place] [id number] Hemoglobin (Bld) [Mass/Vol] 14.2 g/dL Normal 11.1-15.9 [facility]; [facility] Work Phone: Comment on above: PATIENT WAS FASTINGP ERFORMED BY: CB [facility] Rzgiqq5842 [address] RoadDublin [place] [id number] Immature granulocytes (Bld) [#/Vol] 0.0 10*3/uL Normal 0.0-0.1 [facility]; [facility] Work Phone: Comment on above: PATIENT WAS FASTINGP ERFORMED BY: AMIRA Zoltan Marielin6370 [address] RoadDublin [place] [id number] Immature granulocytes/100 WBC (Bld) 1 % Normal [facility]; [facility] Work Phone: Comment on above: PATIENT WAS FASTINGP ERFORMED BY: [place] 6234670 [facility] [id number] Lymphocytes (Bld) [#/Vol] 2.1 10*3/uL Normal 0.7-3.1 [facility]; [facility] Work Phone: Comment on above: PATIENT WAS FASTINGP ERFORMED BY: AMIRA [facility] Lzseou2625 [facility] [id number] Lymphocytes/100 WBC (Bld) 28 % Normal [facility]; [facility] Work Phone: Comment on above: PATIENT WAS FASTINGP ERFORMED BY: [place] 6234670 [facility] [id number] MCH (RBC) [Entitic mass] 29.3 pg Normal 26.6-33.0 [facility]; [facility] Work Phone: Comment on above: PATIENT WAS FASTINGP ERFORMED BY: [place] 6234670 [facility] [id number] MCHC (RBC) [Mass/Vol] 32.6 g/dL Normal 31.5-35.7 [facility]; [facility] Work Phone: Comment on above: PATIENT WAS FASTINGP ERFORMED BY: LabMcLaren Caro Region[address] [facility] MichiganDublin [place] [id number] MCV (RBC) [Entitic vol] 90 fL Normal 79-97 [facility]; [facility] Work Phone: Comment on above: PATIENT WAS FASTINGP ERFORMED BY: LabChristy Ville [id number] [address] [facility]in [place] [id number] Monocytes (Bld) [#/Vol] 0.5 10*3/uL Normal 0.1-0.9 [facility]; [facility] Work Phone: Comment on above: PATIENT WAS FASTINGP ERFORMED BY: Zoltan Peter6370 [address] RoadDublin [place] [id number] Monocytes/100 WBC (Bld) 7 % Normal [facility]; [facility] Work Phone: Comment on above: PATIENT WAS FASTINGP ERFORMED BY: Labresearch [facility] Chaybl5402 [address] RoadDublin [place] [id number] Neutrophils (Bld) [#/Vol] 4.8 10*3/uL Normal 1.4-7.0 [facility]; [facility] Work Phone: Comment on above: PATIENT WAS FASTINGP ERFORMED BY: Labresearch [facility] Kyzrbo5524 [address] RoadDublin [place] [id number] Neutrophils/100 WBC (Bld) 62 % Normal [facility]; [facility] Work Phone: Comment on above: PATIENT WAS FASTINGP ERFORMED BY: Labresearch [facility] Hmvsyq9903 [address] RoadDublin [place] [id number] Platelets (Bld) [#/Vol] 280 10*3/uL Normal 150-450 [facility]; [facility] Work Phone: Comment on above: PATIENT WAS FASTINGP ERFORMED BY: Labresearch [facility] Zaymvg3633 [address] RoadDublin [place] [id number] RBC (Bld) [#/Vol] 4.85 10*6/uL Normal 3.77-5.28 Compr [facility]sum[facility]; [facility] Work Phone: Comment on above: PATIENT WAS FASTINGP ERFORMED BY: [facility] Gvnirx8732 [address] RoadDublin [place] [id number] WBC (Bld) [#/Vol] 7.6 10*3/uL Normal 3.4-10.8 Compre hensive Internal Medicine; [facility] Work Phone: Comment on above: PATIENT WAS FASTINGP ERFORMED BY: AMIRA Labmatilde MarieUmykjq5629 [address] RoadDublin [place] [id number] LIPID PANEL (29433)Ordered B y: Tree Specialist on 07-06-2022 Cholesterol [Mass/Vol] 208 mg/dL Abnormal 100-199 [facility]; [facility] Work Phone: Comment on above: PATIENT WAS FASTINGP ERFORMED BY: AMIRA Labcotameka MarieRrgfvk7778 [address] Roadblin [place] [id number] Cholesterol in HDL [Mass/Vol] 51 mg/dL Normal [facility]; [facility] Work Phone: Comment on above: PATIENT WAS FASTINGP ERFORMED BY: AMIRA Labmatilde MarieJztadp8223 [address] Roadblin [place] [id number] Triglyceride [Mass/Vol] 150 mg/dL Abnormal 0-149 [facility]; [facility] Work Phone: Comment on above: PATIENT WAS FASTINGP ERFORMED BY: AMIRA Marielin6[address] [facility]in [place] [id number] LIPID PANEL (92520) 27 mg/dL Normal 5-40 Compr ehensive Internal Medicine; [facility] Work Phone: Comment on above: PATIENT WAS FASTINGP ERFORMED BY: AMIRA Labcotameka Cpocwp2986 [address] RoadDublin [place] [id number] LIPID PANEL (43077) 130 mg/dL Abnormal 0-99 Compr ehensive Internal Medicine; [facility] Work Phone: Comment on above: PATIENT WAS FASTINGP ERFORMED BY: AMIRA Labcotameka Dnefki[address] [facility] Hospitalblin [place] [id number] LIPID PANEL (71247) 2.5 {ratio} Normal 0.0-3.2 Comp togus [facility] medical centerensive Internal Medicine; [facility] Work Phone: Comment on above: LDL/HDL Ratio Men Wo men 1/2 Avg.Risk 1.0 1.5 Avg.Risk 3.6 3.2 2X Avg.Risk 6.2 5.0 3X Avg.Risk 8.0 6.1 PATIENT WAS FASTINGP ERFORMED BY: AMIRA [facility] Ktdldy9421 [address] [facility]in [place] [id number] METABOLIC PANEL, COMPREHENSI VE (02781)Ordered By: Tree Specialist on 07-06-2022 Albumin [Mass/Vol] 4.0 g/dL Normal 3.8-4.9 [facility] Internal Medicine; [facility] Work Phone: Comment on above: PATIENT WAS FASTINGP ERFORMED BY: [facility] Zgcwvj3184 [address] [facility]in [place] [id number] Albumin/Globulin [Mass ratio] 1.7 {ratio} Normal 1.2-2.2 [facility]; [facility] Work Phone: Comment on above: PATIENT WAS FASTINGP ERFORMED BY: AMIRA Labisabel Ijduys6196 [address] [facility]in [place] [id number] ALP [Catalytic activity/Vol] 98 U/L Normal 44-121 [facility]; [facility] Work Phone: Comment on above: PATIENT WAS FASTINGP ERFORMED BY: AMIRA Labisabel Shypce1734 [address] [facility] [place] [id number] ALT [Catalytic activity/Vol] 17 U/L Normal 0-32 [facility]; [facility] Work Phone: Comment on above: PATIENT WAS FASTINGP ERFORMED BY: AMIRA Labisabel Qsuxae8271 [address] [facility]in [place] [id number] AST [Catalytic activity/Vol] 16 U/L Normal 0-40 [facility]; [facility] Work Phone: Comment on above: PATIENT WAS FASTINGP ERFORMED BY: [facility] Wqpxyu7546 [address] [facility]in [place] [id number] Bilirubin [Mass/Vol] 0.3 mg/dL Normal 0.0-1.2 [facility]; [facility] Work Phone: Comment on above: PATIENT WAS FASTINGP ERFORMED BY: [facility] Gqdzkt0409 [address] [facility] Hospitalbl[facility] [place] [id number] Calcium [Mass/Vol] 9.1 mg/dL Normal 8.7-10.2 [facility] Internal [facility]; [facility] Work Phone: Comment on above: PATIENT WAS FASTINGP ERFORMED BY: CB [facility] Nhwegz3178 [address] RoadDublin [place] [id number] Chloride [Moles/Vol] 103 mmol/L Normal 96-106 [facility]; [facility] Work Phone: Comment on above: PATIENT WAS FASTINGP ERFORMED BY: CB [facility] Tgalnd4612 [address] RoadDublin [place] [id number] CO2 [Moles/Vol] 25 mmol/L Normal 20-29 Comprehen [facility]; [facility] Work Phone: Comment on above: PATIENT WAS FASTINGP ERFORMED BY: CB [facility] Kdivll2548 [address] RoadDublin [place] [id number] Creatinine [Mass/Vol] 0.73 mg/dL Normal 0.57-1.00 [facility]; [facility] Work Phone: Comment on above: PATIENT WAS FASTINGP ERFORMED BY: [facility] Nkrjdy9954 [address] RoadDublin [place] [id number] GFR/1.73 sq M.predicted among non-blacks MDRD (S/P/Bld) [Vol rate/Area] 99 mL/min/{1.73_m2} Normal Comprehensiv e Internal Medicine; [facility] Work Phone: Comment on above: PATIENT WAS FASTINGP ERFORMED BY: [facility] Qtskmy9398 [address] RoadDublin [place] [id number] Globulin (S) [Mass/Vol] 2.3 g/dL Normal 1.5-4.5 [facility]; [facility] Work Phone: Comment on above: PATIENT WAS FASTINGP ERFORMED BY: CB [facility] Sknpcg7846 [address] RoadDublin [place] [id number] Glucose [Mass/Vol] 80 mg/dL Normal 70-99 Compre [facility] Internal Medicine; [facility] Work Phone: Comment on above: PATIENT WAS FASTINGP ERFORMED BY: [facility] Kryxqh2365 [address] RoadDublin [place] [id number] Potassium [Moles/Vol] 4.5 mmol/L Normal 3.5-5.2 [facility]; [facility] Work Phone: Comment on above: PATIENT WAS FASTINGP ERFORMED BY: AMIRA [facility] Fvnkgk2226 [address] RoadDublin [place] [id number] Protein [Mass/Vol] 6.3 g/dL Normal 6.0-8.5 [facility] Internal [facility]; [facility] Work Phone: Comment on above: PATIENT WAS FASTINGP ERFORMED BY: CB [facility] Owrigc2481 [address] RoadDublin [place] [id number] Sodium [Moles/Vol] 140 mmol/L Normal 134-144 [facility] Internal [facility]; [facility] Work Phone: Comment on above: PATIENT WAS FASTINGP ERFORMED BY: AMIRA [facility] Wecjyu7927 [address] RoadDublin [place] [id number] Urea nitrogen [Mass/Vol] 10 mg/dL Normal 6-24 [facility]; [facility] Work Phone: Comment on above: PATIENT WAS FASTINGP ERFORMED BY: AMIRA [facility] Knzjbe6928 [address] RoadDublin [place] [id number] Urea nitrogen/Creatinine [Mass ratio] 14 mg/mg Normal 9-23 [facility]; [facility] Work Phone: Comment on above: PATIENT WAS FASTINGP ERFORMED BY: [facility] Bghshm8665 [address] RoadDublin [place] [id number] PARATHORMONE ([id number])Ordered By: Tree Specialist on 07-06-2022 Parathyrin.intact [Mass/Vol] 31 pg/mL Normal 15-65 [facility]; [facility] Work Phone: Comment on above: PATIENT WAS FASTINGP ERFORMED BY: [facility] Lgcsqn7699 [address] RoadDublin [place] [id number] THYROXINE FREE (50735)Ordere d By: Tree Specialist on 07-06-2022 Free T4 [Mass/Vol] 0.89 ng/dL Normal 0.82-1.77 [facility] Internal [facility]; [facility] Work Phone: Comment on above: PATIENT WAS FASTINGP ERFORMED BY: [facility]6370 [facility] [id number] TSH (THYROID STIMULATING HOR TAYE) (14534)Ordered By: Tree Specialist on 07-06-2022 TSH Qn 5.240 {uIU/mL} Abnormal 0.450-4.50 0 [facility]; [facility] Work Phone: Comment on above: PATIENT WAS FASTINGP ERFORMED BY: [facility]6370 [facility] [id number] CALCIFEDIOL (77423)Ordered B y: Tree Specialist on 10-26-2021 25-hydroxyvitamin D [Mass/Vol] 45.2 ng/mL Normal 30.0-100.0 [facility]; [facility] Work Phone: Comment on above: Vitamin D deficiency has been defined by the [place] ofUniversity [facility] Medical Centercine and an Endocrine Society practice guideline as alevel of serum 25-OH vitamin D less than 20 ng/mL (1,2).The Endocrine Society went on to further define vitamin Dinsufficiency as a level between 21 and 29 ng/mL (2).1. IOM ([place] of Medicine). 2010. Dietary reference intakes for calcium and D. [place]: The National Academies Press.2. Brice MF, Olu FRANCIS, Jennifer JIMENEZ, et al. Evaluation, treatment, and prevention of vitamin D deficiency: an Endocrine Society clinical practice guideline. JCEM. 2010; 96(7):1911-30. PATIENT WAS FASTINGP ERFORMED BY: [facility]6370 [facility] [id number] CBC, PLATELETS & MANUAL DIFF ([id number])Ordered By: Tree Specialist on 10-26-2021 Basophils (Bld) [#/Vol] 0.0 10*3/uL Normal 0.0-0.2 [facility]; [facility] Work Phone: Comment on above: PATIENT WAS FASTINGP ERFORMED BY: [facility]6370 [facility] [id number] Basophils/100 WBC (Bld) 1 % Normal [facility]; [facility] Work Phone: Comment on above: PATIENT WAS FASTINGP ERFORMED BY: AMIRA [facility] Quvpfx4928 [address] RoadDublin [place] [id number] Eosinophils (Bld) [#/Vol] 0.0 10*3/uL Normal 0.0-0.4 [facility]; [facility] Work Phone: Comment on above: PATIENT WAS FASTINGP ERFORMED BY: CB [facility] Wsdglr0644 [address] RoadDublin [place] [id number] Eosinophils/100 WBC (Bld) 1 % Normal [facility]; [facility] Work Phone: Comment on above: PATIENT WAS FASTINGP ERFORMED BY: [facility] Pqqxcm3902 [address] Roadblin [place] [id number] Erythrocyte distribution width (RBC) [Ratio] 12.6 % Normal 11.7-15.4 [facility]; [facility] Work Phone: Comment on above: PATIENT WAS FASTINGP ERFORMED BY: [facility] Vghspa3592 [address] RoadAtrium Health Mercyin [place] [id number] Hematocrit (Bld) [Volume fraction] 40.1 % Normal 34.0-46.6 [facility]; [facility] Work Phone: Comment on above: PATIENT WAS FASTINGP ERFORMED BY: [facility] Nvyxlf1422 [address] RoadDublin [place] [id number] Hemoglobin (Bld) [Mass/Vol] 13.5 g/dL Normal 11.1-15.9 [facility]; [facility] Work Phone: Comment on above: PATIENT WAS FASTINGP ERFORMED BY: CB [facility] Vrevpd7378 Allen RoadDublin [place] [id number] Immature granulocytes (Bld) [#/Vol] 0.0 10*3/uL Normal 0.0-0.1 [facility]; [facility] Work Phone: Comment on above: PATIENT WAS FASTINGP ERFORMED BY: CB [facility] Pyjppm6436 [address] RoadDublin [place] [id number] Immature granulocytes/100 WBC (Bld) 0 % Normal [facility]; [facility] Work Phone: Comment on above: PATIENT WAS FASTINGP ERFORMED BY: AMIRA [facility] Usyyaa5224 [address] RoadDublin [place] [id number] Lymphocytes (Bld) [#/Vol] 2.1 10*3/uL Normal 0.7-3.1 [facility]; [facility] Work Phone: Comment on above: PATIENT WAS FASTINGP ERFORMED BY: [facility] Eeuimg0790 [address] RoadDublin [place] [id number] Lymphocytes/100 WBC (Bld) 29 % Normal [facility]; [facility] Work Phone: Comment on above: PATIENT WAS FASTINGP ERFORMED BY: [facility] Dqkvwu3963 [address] RoadDublin [place] [id number] MCH (RBC) [Entitic mass] 30.3 pg Normal 26.6-33.0 [facility]; [facility] Work Phone: Comment on above: PATIENT WAS FASTINGP ERFORMED BY: [facility] Wtrsir2269 [address] RoadDublin [place] [id number] MCHC (RBC) [Mass/Vol] 33.7 g/dL Normal 31.5-35.7 [facility]; [facility] Work Phone: Comment on above: PATIENT WAS FASTINGP ERFORMED BY: [facility] Merhks6459 [address] RoadDublin [place] [id number] MCV (RBC) [Entitic vol] 90 fL Normal 79-97 [facility]; [facility] Work Phone: Comment on above: PATIENT WAS FASTINGP ERFORMED BY: [facility] Inoqrg6508 [address] RoadDublin [place] [id number] Monocytes (Bld) [#/Vol] 0.4 10*3/uL Normal 0.1-0.9 [facility]; [facility] Work Phone: Comment on above: PATIENT WAS FASTINGP ERFORMED BY: [facility] Nyqtds9272 [address] RoadDublin [place] [id number] Monocytes/100 WBC (Bld) 5 % Normal [facility]; [facility] Work Phone: Comment on above: PATIENT WAS FASTINGP ERFORMED BY: AMIRA Labcotameka PeterHwkutz8[address] RoadDublin [place] [id number] Neutrophils (Bld) [#/Vol] 4.6 10*3/uL Normal 1.4-7.0 [facility]; [facility] Work Phone: Comment on above: PATIENT WAS FASTINGP ERFORMED BY: AMIRA [facility] Lkzzgu6118 [address] RoadDublin [place] [id number] Neutrophils/100 WBC (Bld) 64 % Normal [facility]; [facility] Work Phone: Comment on above: PATIENT WAS FASTINGP ERFORMED BY: AMIRA Labcotameka MarieMaxzhy7526 [address] RoadDublin [place] [id number] Platelets (Bld) [#/Vol] 275 10*3/uL Normal 150-450 [facility]; [facility] Work Phone: Comment on above: PATIENT WAS FASTINGP ERFORMED BY: AMIRA [facility] Pjhbqp8612 [address] RoadDublin [place] [id number] RBC (Bld) [#/Vol] 4.46 10*6/uL Normal 3.77-5.28 Compr ehensive Internal Medicine; [facility] Work Phone: Comment on above: PATIENT WAS FASTINGP ERFORMED BY: AMIRA [facility] Anjvqr1226 [address] RoadDublin [place] [id number] WBC (Bld) [#/Vol] 7.2 10*3/uL Normal 3.4-10.8 Compre [facility]; [facility] Work Phone: Comment on above: PATIENT WAS FASTINGP ERFORMED BY: AMIRA [facility] Idermg06[address] RoadDublin [place] [id number] LIPID PANEL (75893)Ordered B y: Tree Specialist on 10-26-2021 Cholesterol [Mass/Vol] 225 mg/dL Abnormal 100-199 [facility]; [facility] Work Phone: Comment on above: PATIENT WAS FASTINGP ERFORMED BY: AMIRA Labcotameka Ygzhit3643 [address] RoadDublin [place] [id number] Cholesterol in HDL [Mass/Vol] 55 mg/dL Normal [facility]; [facility] Work Phone: Comment on above: PATIENT WAS FASTINGP ERFORMED BY: AMIRA Labcotameka Zyemoi7[address] RoadDublin [place] [id number] Triglyceride [Mass/Vol] 129 mg/dL Normal 0-149 [facility]; [facility] Work Phone: Comment on above: PATIENT WAS FASTINGP ERFORMED BY: AMIRA Labcotameka Eayyry7[address] RoadDublin [place] [id number] LIPID PANEL (49746) 23 mg/dL Normal 5-40 [facility]; [facility] Work Phone: Comment on above: PATIENT WAS FASTINGP ERFORMED BY: AMIRA Labmatilde MarieVcvnry26[address] RoadDublin [place] [id number] LIPID PANEL (29666) 147 mg/dL Abnormal 0-99 [facility]; [facility] Work Phone: Comment on above: PATIENT WAS FASTINGP ERFORMED BY: AMIRA Labmatilde Bepdyj8[address] RoadDublin [place] [id number] LIPID PANEL (72237) 2.7 {ratio} Normal 0.0-3.2 [facility]; [facility] Work Phone: Comment on above: LDL/HDL Ratio Men Wo men 1/2 Avg.Risk 1.0 1.5 Avg.Risk 3.6 3.2 2X Avg.Risk 6.2 5.0 3X Avg.Risk 8.0 6.1 PATIENT WAS FASTINGP ERFORMED BY: AMIRA [facility] Rtlyyu3[address] RoadDublin [place] [id number] METABOLIC PANEL, COMPREHENSI VE (22344)Ordered By: Tree Specialist on 10-26-2021 Albumin [Mass/Vol] 4.1 g/dL Normal 3.8-4.9 [facility]; [facility] Work Phone: Comment on above: PATIENT WAS FASTINGP ERFORMED BY: [facility] Yhjnyc86[address] RoadDublin [place] [id number] Albumin/Globulin [Mass ratio] 2.0 {ratio} Normal 1.2-2.2 [facility]; [facility] Work Phone: Comment on above: PATIENT WAS FASTINGP ERFORMED BY: Felisa Huppss7941 [address] RoadDublin [place] [id number] ALP [Catalytic activity/Vol] 96 U/L Normal 44-121 [facility]; [facility] Work Phone: Comment on above: PATIENT WAS FASTINGP ERFORMED BY: [facility] Uzkyrr8397 [address] RoadDublin [place] [id number] ALT [Catalytic activity/Vol] 13 U/L Normal 0-32 [facility]; [facility] Work Phone: Comment on above: PATIENT WAS FASTINGP ERFORMED BY: [facility] Arrshh5[address] RoadDublin [place] [id number] AST [Catalytic activity/Vol] 15 U/L Normal 0-40 [facility]; [facility] Work Phone: Comment on above: PATIENT WAS FASTINGP ERFORMED BY: Felisa Tgwaxv7389 [address] RoadDublin [place] [id number] Bilirubin [Mass/Vol] 0.4 mg/dL Normal 0.0-1.2 [facility]; [facility] Work Phone: Comment on above: PATIENT WAS FASTINGP ERFORMED BY: [facility] Rcozyq1354 [address] RoadDublin [place] [id number] Calcium [Mass/Vol] 8.8 mg/dL Normal 8.7-10.2 [facility]; [facility] Work Phone: Comment on above: PATIENT WAS FASTINGP ERFORMED BY: [facility] Agpolb8710 [address] RoadDublin [place] [id number] Chloride [Moles/Vol] 100 mmol/L Normal 96-106 [facility]; [facility] Work Phone: Comment on above: PATIENT WAS FASTINGP ERFORMED BY: [facility] Rgppin0473 [address] RoadDublin [place] [id number] CO2 [Moles/Vol] 22 mmol/L Normal 20-29 [facility]; [facility] Work Phone: Comment on above: PATIENT WAS FASTINGP ERFORMED BY: CB [facility] Gjrmqn4409 [address] RoadDublin [place] [id number] Creatinine [Mass/Vol] 0.73 mg/dL Normal 0.57-1.00 [facility]; [facility] Work Phone: Comment on above: PATIENT WAS FASTINGP ERFORMED BY: [facility] Qdeoqs8346 [address] RoadDublin [place] [id number] GFR/1.73 sq M.predicted among non-blacks MDRD (S/P/Bld) [Vol rate/Area] 100 mL/min/{1.73_m2} Normal Comprehensi Internal Medicine; [facility] Work Phone: Comment on above: PATIENT WAS FASTINGP ERFORMED BY: [facility] Cuiczh5000 [address] RoadD[address] [place] [id number] Globulin (S) [Mass/Vol] 2.1 g/dL Normal 1.5-4.5 [facility]; [facility] Work Phone: Comment on above: PATIENT WAS FASTINGP ERFORMED BY: [facility] Pmxahm2884 [address] RoadDublin [place] [id number] Glucose [Mass/Vol] 74 mg/dL Normal 65-99 [facility]; [facility] Work Phone: Comment on above: PATIENT WAS FASTINGP ERFORMED BY: [facility] Kwigyx7184 [address] RoadDublin [place] [id number] Potassium [Moles/Vol] 4.2 mmol/L Normal 3.5-5.2 [facility]; [facility] Work Phone: Comment on above: PATIENT WAS FASTINGP ERFORMED BY: [facility] Qavfqt7248 [address] RoadDublin [place] [id number] Protein [Mass/Vol] 6.2 g/dL Normal 6.0-8.5 [facility]; [facility] Work Phone: Comment on above: PATIENT WAS FASTINGP ERFORMED BY: AMIRA [facility] Bvxmut7726 [facility] [id number] Sodium [Moles/Vol] 138 mmol/L Normal 134-144 [facility] Internal [facility]; [facility] Work Phone: Comment on above: PATIENT WAS FASTINGP ERFORMED BY: LabMcLaren Caro Region6370 [facility] [id number] Urea nitrogen [Mass/Vol] 8 mg/dL Normal 6-24 [facility]; [facility] Work Phone: Comment on above: PATIENT WAS FASTINGP ERFORMED BY: LabMcLaren [facility] Region6370 [facility] [id number] Urea nitrogen/Creatinine [Mass ratio] 11 mg/mg Normal 9-23 [facility]; [facility] Work Phone: Comment on above: PATIENT WAS FASTINGP ERFORMED BY: LabMcLaren [facility] Region6370 [facility] [id number] TSH (THYROID STIMULATING HOR TAYE) (52008)Ordered By: Tree Specialist on 10-26-2021 TSH Qn 3.230 {uIU/mL} Normal 0.450-4.50 0 [facility]; [facility] Work Phone: Comment on above: PATIENT WAS FASTINGP ERFORMED BY: LabMcLaren [facility] Region6370 [facility] [id number] URINE GERONIMO CULTURE-IDENTIFICA TN ([id number])Ordered By: Tree Specialist on 09-01-2021 Bacteria identified Cx Nom (U) Final report Normal [facility]; [facility] Work Phone: Comment on above: PATIENT NOT FASTINGP ERFORMED BY: [facility] Icqtdy7486 [facility] [id number] Information: SRC:UC Bacteria identified Cx Nom (U) NG36 Normal [facility]; [facility] Work Phone: Comment on above: No growth in 36 - 48 hours. PATIENT NOT FASTINGP ERFORMED BY: Mieple70 Gravey[facility] PizzaAtrium Health Waxhaw [id number] Information: SRC:UC Urinalysis, Office (57735)Or dered By: Zackary Felder on 09-01-2021 Bilirubin Ql (U) + Abnormal Comprehe nsive Internal Medicine; [facility] Work Phone: Glucose Test strip (U) [Mass/Vol] Negative Normal [facility]; [facility] Work Phone: Hemoglobin Ql (U) Negative Normal Compreh ensive Internal Medicine; [facility] Work Phone: Ketones Ql (U) Negative Normal Comprehens thomas [facility]; [facility] Work Phone: Leukocyte esterase Test strip Ql (U) Negative Normal [facility]; [facility] Work Phone: Nitrite Ql (U) Negative Normal Comprehens thomas [facility]; [facility] Work Phone: pH (U) 6 [pH] Abnormal [facility]; [facility] Work Phone: Protein Ql (U) Negative Normal Comprehens thomas [facility]; [facility] Work Phone: Specific gravity (U) [Rel density] 1.030 1 Abnormal [facility]; [facility] Work Phone: Urobilinogen (24H U) [Mass/Time] 2 mg/dL Normal [facility]; [facility] Work Phone: URINE GERONIMO CULTURE (NIGEL COL COUNT) (32910)Ordered By: Tree Specialist on 08-29-2021 Bacteria identified Cx Nom (U) Final report Normal [facility]; [facility] Work Phone: Comment on above: PATIENT NOT FASTINGP ERFORMED BY: AMIRA [employer]ja [employer]ice Pmkslo5672 [facility] [id number] Information: SRC:UC Bacteria identified Cx Nom (U) MUG Normal [facility]; [facility] Work Phone: Comment on above: Mixed urogenital velvet ra25,000-50,000 colony forming units per mL PATIENT NOT FASTINGP ERFORMED BY: AMIRA myFairPartner70 SecureNetTwin [facility] [id number] Information: SRC:SALLIE Urinalysis, Office (19276)Or dered By: Radha Rousseau on 08-29-2021 Bilirubin Ql (U) Negative Normal Comprehe nsive Internal Medicine; [facility] Work Phone: Glucose Test strip (U) [Mass/Vol] Negative Normal [facility]; [facility] Work Phone: Hemoglobin Ql (U) Hemolyzed Trace Normal Co mprehensive [facility]; [facility] Work Phone: Ketones Ql (U) Negative Normal Comprehens thomas [facility]; [facility] Work Phone: Leukocyte esterase Test strip Ql (U) Trace Normal [facility]; [facility] Work Phone: Nitrite Ql (U) Negative Normal Comprehens thomas [facility]; [facility] Work Phone: pH (U) 6.0 [pH] Normal [facility]; [facility] Work Phone: Protein Ql (U) Negative Normal Comprehens thomas [facility]; [facility] Work Phone: Specific gravity (U) [Rel density] 1.020 1 Normal [facility]; [facility] Work Phone: Urobilinogen (24H U) [Mass/Time] Normal Normal [facility]; [facility] Work Phone: URINE GERONIMO CULTURE (NIGEL COL COUNT) (12082)Ordered By: Tree Specialist on 05-30-2021 Bacteria identified Cx Nom (U) Final report Abnormal [facility]; [facility] Work Phone: Comment on above: PATIENT NOT FASTINGP ERFORMED BY: AMIRA [facility] Mpmxea5862 [place] TBT GroupAtrium Health W[facility]haw [id number] Information: SRC:UC Bacteria identified Cx Nom (U) Klebsiella pneumoniae Abnormal Comprehens thomas [facility]; [facility] Work Phone: Comment on above: Cefazolin <=4 ug/mLC efazolin with an RUBÉN <=16 predicts susceptibility to the oral agentscefaclor, cefdinir, cefpodoxime, cefprozil, cefuroxime, cephalexin,and loracarbef when used for therapy of uncomplicated urinary tractinfections due to E. coli, Klebsiella pneumoniae, and Proteusmirabilis.Greater than 100,000 colony forming units per mL PATIENT NOT FASTINGP ERFORMED BY: AMIRA myFairPartner70 [place] [id number] Information: SRC: Other Antibiotic [Susc] MIHEAD Normal [facility]; [facility] Work Phone: Comment on above: S = Susceptible; I = Intermediate; R = Resistant P = Positive; N = Negative MICS are expressed in micrograms per mL Antibiotic RSLT#1 RSLT#2 RSLT#3 RSLT#4Amoxicillin/Clavulanic Acid SAmpicillin RCefepime SCeftriaxone SCefuroxime SCiprofloxacin SErtapenem SGentamicin SImipenem SLevofloxacin SMeropenem SNitrofurantoin IPiperacillin/Tazobactam STetracycline STobramycin STrimethoprim/Sulfa S PATIENT NOT FASTINGP ERFORMED BY: AMIRA myFairPartner70 SecureNetTwin Lakes Regional [facility] Center [id number] Information: SRC: Urinalysis, Office (36341)Or dered By: Sandee Osborne on 05-29-2021 Bilirubin Ql (U) Negative Normal Comprehe nsive Internal Medicine; [facility] Work Phone: Glucose Test strip (U) [Mass/Vol] Negative Normal [facility]; [facility] Work Phone: Hemoglobin Ql (U) Negative Normal Compreh ensive [facility] Medicine; [facility] Work Phone: Ketones Ql (U) Negative Normal Comprehens thomas [facility]; [facility] Work Phone: Leukocyte esterase Test strip Ql (U) Negative Normal [facility]; [facility] Work Phone: Nitrite Ql (U) Negative Normal Comprehens thomas [facility]; [facility] Work Phone: pH (U) 6.0 [pH] Normal [facility]; [facility] Work Phone: Protein Ql (U) Negative Normal Comprehens thomas [facility]; [facility] Work Phone: Specific gravity (U) [Rel density] 1.030 1 Abnormal [facility]; [facility] Work Phone: Urobilinogen (24H U) [Mass/Time] Normal Normal [facility]; [facility] Work Phone: Cortisol ([id number])Ordered By: Tree Specialist on 02-14-2021 Cortisol [Mass/Vol] 1.5 ug/dL Normal [facility]pr [facility]; [facility] Work Phone: Comment on above: Cortisol AM 6.2 - 19 .4 Cortisol PM 2.3 - 11.9 Give pt lab slip tod ay; PATIENT NOT FASTINGPERFORMED BY: CB [facility] Lmwwar7291 [address] RoadDublin [place] [id number] HEPATIC FUNCTION PANEL (8007 6)Ordered By: Tree Specialist on 02-14-2021 Albumin [Mass/Vol] 4.2 g/dL Normal 3.8-4.8 Compre [facility]; [facility] Work Phone: Comment on above: Give pt lab slip tod ay; PATIENT NOT FASTINGPERFORMED BY: CB [facility] Cvvxmc[address] TBT Groupblin [place] [id number] ALP [Catalytic activity/Vol] 94 U/L Normal 44-121 [facility]; [facility] Work Phone: Comment on above: Please note refere nce interval change Give pt lab slip tod ay; PATIENT NOT FASTINGPERFORMED BY: CB [facility] Kemicz1110 [address] RoadDublin [place] [id number] ALT [Catalytic activity/Vol] 21 U/L Normal 0-32 [facility]; [facility] Work Phone: Comment on above: Give pt lab slip tod ay; PATIENT NOT FASTINGPERFORMED BY: CB [facility] Dvkbsl6717 [address] RoadDublin [place] [id number] AST [Catalytic activity/Vol] 17 U/L Normal 0-40 [facility]; [facility] Work Phone: Comment on above: Give pt lab slip tod ay; PATIENT NOT FASTINGPERFORMED BY: CB [facility] Kkpjbf3124 [address] RoadDublin [place] [id number] Bilirubin [Mass/Vol] mg/dL Normal 0.0-1.2 [facility]; [facility] Work Phone: Comment on above: Give pt lab slip tod ay; PATIENT NOT FASTINGPERFORMED BY: CB [facility] Utbeir4231 [address] RoadDublin [place] [id number] Bilirubin.direct [Mass/Vol] mg/dL Normal 0.00-0.40 [facility]; [facility] Work Phone: Comment on above: Give pt lab slip tod ay; PATIENT NOT FASTINGPERFORMED BY: CB [facility] Pcdhim4209 [address] RoadDublin [place] [id number] Protein [Mass/Vol] 6.7 g/dL Normal 6.0-8.5 Compre hensive Internal Medicine; [facility] Work Phone: Comment on above: Give pt lab slip tod ay; PATIENT NOT FASTINGPERFORMED BY: CB [facility] Fipyff8610 [address] RoadDublin [place] [id number] VITAMIN B12 AND FOLATES (826 07)Ordered By: Tree Specialist on 02-14-2021 Cobalamin (Vitamin B12) [Mass/Vol] 505 pg/mL Normal 232-1245 [facility]; [facility] Work Phone: Comment on above: Give pt lab slip to be done before next dose; PATIENT NOT FASTINGPERFORMED BY: CB [facility] Nsxsyh8912 [address] RoadDublin [place] [id number] Folate [Mass/Vol] 7.5 ng/mL Normal Compreh ensive Internal Medicine; [facility] Work Phone: Comment on above: A serum folate yehuda ntration of less than 3.1 ng/mL isconsidered to represent clinical deficiency. Give pt lab slip to be done before next dose; PATIENT NOT FASTINGPERFORMED BY: AMIRA [employer] Tmaviy[address] Bibablin [place] [id number] CALCIFEDIOL (57480)Ordered B y: Tree Specialist on 12-26-2020 25-hydroxyvitamin D [Mass/Vol] 41.4 ng/mL Normal 30.0-100.0 [facility]; [facility] Work Phone: Comment on above: Vitamin D deficiency has been defined by the [place] ofUniversity [facility] Medical Centercine and an Endocrine Society practice guideline as alevel of serum 25-OH vitamin D less than 20 ng/mL (1,2).The Endocrine Society went on to further define vitamin Dinsufficiency as a level between 21 and 29 ng/mL (2).1. IOM ([place] of Medicine). 2010. Dietary reference intakes for calcium and D. [place]: The National AcademFundRazr Press.2. Brice MF, Olu NC, Jennifer JIMENEZ, et al. Evaluation, treatment, and prevention of vitamin D deficiency: an Endocrine Society clinical practice guideline. JCEM. 2010; 96(7):1911-30. PATIENT NOT FASTINGP ERFORMED BY: AMIRA [facility] Lbbvoj[address] [facility]bl[facility] [place] [id number] CBC & PLATELETS (AUTO) (8502 7)Ordered By: Tree Specialist on 12-26-2020 Erythrocyte distribution width (RBC) [Ratio] 14.3 % Normal 11.7-15.4 [facility]; [facility] Work Phone: Comment on above: PATIENT NOT FASTINGP ERFORMED BY: [employer] [facility] Kgwmvf7557 [address] RoadDublin [place] [id number] Hematocrit (Bld) [Volume fraction] 43.1 % Normal 34.0-46.6 [facility]; [facility] Work Phone: Comment on above: PATIENT NOT FASTINGP ERFORMED BY: FlightCarrp Gouarw[address] [facility] Hospitalblin [place] [id number] Hemoglobin (Bld) [Mass/Vol] 14.4 g/dL Normal 11.1-15.9 [facility]; [facility] Work Phone: Comment on above: PATIENT NOT FASTINGP ERFORMED BY: CB [facility] Jjstgm1478 [address] RoadDublin [place] [id number] MCH (RBC) [Entitic mass] 30.2 pg Normal 26.6-33.0 [facility]; [facility] Work Phone: Comment on above: PATIENT NOT FASTINGP ERFORMED BY: CB [facility] Olptur4[address] RoadDublin [place] [id number] MCHC (RBC) [Mass/Vol] 33.4 g/dL Normal 31.5-35.7 [facility]; [facility] Work Phone: Comment on above: PATIENT NOT FASTINGP ERFORMED BY: CB [facility] Uuozvu0384 [address] RoadDublin [place] [id number] MCV (RBC) [Entitic vol] 90 fL Normal 79-97 [facility]; [facility] Work Phone: Comment on above: PATIENT NOT FASTINGP ERFORMED BY: CB [facility] Odezgd1886 [address] RoadDublin [place] [id number] Platelets (Bld) [#/Vol] 334 10*3/uL Normal 150-450 [facility]; [facility] Work Phone: Comment on above: PATIENT NOT FASTINGP ERFORMED BY: CB [facility] Jgymjo9585 [address] RoadDublin [place] [id number] RBC (Bld) [#/Vol] 4.77 10*6/uL Normal 3.77-5.28 Compr ehensive Internal Medicine; [facility] Work Phone: Comment on above: PATIENT NOT FASTINGP ERFORMED BY: CB [facility] Pzrxyx2908 [address] RoadDublin [place] [id number] WBC (Bld) [#/Vol] 7.2 10*3/uL Normal 3.4-10.8 Compre [facility]; [facility] Work Phone: Comment on above: PATIENT NOT FASTINGP ERFORMED BY: CB [facility] Tqmnsm8685 [address] RoadD[address] [place] [id number] Metabolic Panel, Comprehensi ve (93896)Ordered By: Tree Specialist on 12-26-2020 Albumin [Mass/Vol] 4.4 g/dL Normal 3.8-4.8 [facility]; [facility] Work Phone: Comment on above: PATIENT NOT FASTINGP ERFORMED BY: AMIRA LabCotameka MarieFyqxki6349 [address] RoadDublin [place] [id number] Albumin/Globulin [Mass ratio] 1.8 {ratio} Normal 1.2-2.2 [facility]; [facility] Work Phone: Comment on above: PATIENT NOT FASTINGP ERFORMED BY: CB [facility] Duyrja2389 Allen RoadDublin [place] [id number] ALP [Catalytic activity/Vol] 100 U/L Normal 44-121 [facility]; [facility] Work Phone: Comment on above: Please note refere nce interval change PATIENT NOT FASTINGP ERFORMED BY: CB [facility] Rkvkuh6165 Allen RoadDublin [place] [id number] ALT [Catalytic activity/Vol] 33 U/L Abnormal 0-32 [facility]; [facility] Work Phone: Comment on above: PATIENT NOT FASTINGP ERFORMED BY: CB [facility] Xainww26[address] RoadDublin [place] [id number] AST [Catalytic activity/Vol] 28 U/L Normal 0-40 [facility]; [facility] Work Phone: Comment on above: PATIENT NOT FASTINGP ERFORMED BY: CB [facility] Pvaooq18[address] RoadDublin [place] [id number] Bilirubin [Mass/Vol] mg/dL Normal 0.0-1.2 [facility]; [facility] Work Phone: Comment on above: PATIENT NOT FASTINGP ERFORMED BY: CB [facility] Udsgsi80[address] RoadDublin [place] [id number] Calcium [Mass/Vol] 8.9 mg/dL Normal 8.7-10.2 [facility]; [facility] Work Phone: Comment on above: PATIENT NOT FASTINGP ERFORMED BY: CB [facility] Zruvwz07[address] RoadDublin [place] [id number] Chloride [Moles/Vol] 104 mmol/L Normal 96-106 [facility]; [facility] Work Phone: Comment on above: PATIENT NOT FASTINGP ERFORMED BY: AMIRA [facility]ielin6[address] [facility] [id number] CO2 [Moles/Vol] 21 mmol/L Normal 20-29 [facility]; [facility] Work Phone: Comment on above: PATIENT NOT FASTINGP ERFORMED BY: AMIRA Marielin6370 [facility] [id number] Creatinine [Mass/Vol] 0.68 mg/dL Normal 0.57-1.00 [facility]; [facility] Work Phone: Comment on above: PATIENT NOT FASTINGP ERFORMED BY: AMIRA Marielin6370 [facility] [id number] GFR/1.73 sq M.predicted among blacks CKD-EPI (S/P/Bld) [Vol rate/Area] 118 mL/min/1.73 Normal [facility]; [facility] Work Phone: Comment on above: In accordance with recommendations from the NKF-ASN Task force, [facility] is in the process of updating its eGFR calculation to the 2020 CKD-EPI creatinine equation that estimates kidney function without a race variable. PATIENT NOT FASTINGP ERFORMED BY: AMIRA Marielin6370 [facility] [id number] GFR/1.73 sq M.predicted among non-blacks CKD-EPI (S/P/Bld) [Vol rate/Area] 102 mL/min/1.73 Normal [facility]; [facility] Work Phone: Comment on above: PATIENT NOT FASTINGP ERFORMED BY: AMIRA Marielin6370 [facility] [id number] Globulin (S) [Mass/Vol] 2.4 g/dL Normal 1.5-4.5 [facility]; [facility] Work Phone: Comment on above: PATIENT NOT FASTINGP ERFORMED BY: AMIRA LabCotameka Hbzwyu7[address] RoadDublin [place] [id number] Glucose [Mass/Vol] 80 mg/dL Normal 65-99 [facility]; [facility] Work Phone: Comment on above: PATIENT NOT FASTINGP ERFORMED BY: AMIRA LabCotameka MarieEkkdrq7303 Allen RoadDublin [place] [id number] Potassium [Moles/Vol] 4.5 mmol/L Normal 3.5-5.2 [facility]; [facility] Work Phone: Comment on above: PATIENT NOT FASTINGP ERFORMED BY: AMIRA LabCotameka Pntyia50[address] RoadDublin [place] [id number] Protein [Mass/Vol] 6.8 g/dL Normal 6.0-8.5 [facility] Internal [facility]; [facility] Work Phone: Comment on above: PATIENT NOT FASTINGP ERFORMED BY: AMIRA LabCotameka MarieAymgtb9687 Allen RoadDublin [place] [id number] Sodium [Moles/Vol] 141 mmol/L Normal 134-144 [facility] Internal [facility]; [facility] Work Phone: Comment on above: PATIENT NOT FASTINGP ERFORMED BY: AMIRA LabMatilde Etpyvz080[address] RoadDublin [place] [id number] Urea nitrogen [Mass/Vol] 10 mg/dL Normal 6-24 [facility]; [facility] Work Phone: Comment on above: PATIENT NOT FASTINGP ERFORMED BY: AMIRA [facility] Adapwj99[address] RoadDublin [place] [id number] Urea nitrogen/Creatinine [Mass ratio] 15 mg/mg Normal 9-23 [facility]; [facility] Work Phone: Comment on above: PATIENT NOT FASTINGP ERFORMED BY: AMIRA [facility] Tzygjj5[address] RoadDublin [place] [id number] PARATHORMONE ([id number])Ordered By: Tree Specialist on 12-26-2020 Parathyrin.intact [Mass/Vol] 39 pg/mL Normal 15-65 [facility]; [facility] Work Phone: Comment on above: PATIENT NOT FASTINGP ERFORMED BY: AMIRA Lab[facility] Iiexab[address] [facility] [place] [id number] T3, FREE (TRIDOTHYRONINE) ([id number] [id number])Ordered By: Tree Specialist on 12-26-2020 Free T3 [Mass/Vol] 2.2 pg/mL Normal 2.0-4.4 [facility] Internal [facility]; [facility] Work Phone: Comment on above: PATIENT NOT FASTINGP ERFORMED BY: AMIRA [facility] Vltyae3486 [address] RoadDublin [place] [id number] T4, FREE (THYROXINE) ([id number]) Ordered By: Tree Specialist on 12-26-2020 Free T4 [Mass/Vol] 0.87 ng/dL Normal 0.82-1.77 [facility]; [facility] Work Phone: Comment on above: PATIENT NOT FASTINGP ERFORMED BY: AMIRA LabDeal In [place] Bkrtmh[address] [facility]in [place] [id number] TSH (THYROID STIMULATING HOR TAYE) (72037)Ordered By: Tree Specialist on 12-26-2020 TSH Qn 2.960 {uIU/mL} Normal 0.450-4.50 0 [facility]; [facility] Work Phone: Comment on above: PATIENT NOT FASTINGP ERFORMED BY: AMIRA [facility] Xftmny[address] BibaAtrium Health Mercyin [place] [id number] VITAMIN B12 AND FOLATES (826 12)Ordered By: Tree Specialist on 12-26-2020 Cobalamin (Vitamin B12) [Mass/Vol] pg/mL Abnormal 232-1245 [facility]; [facility] Work Phone: Comment on above: PATIENT NOT FASTINGP ERFORMED BY: AMIRA [facility] Mxmgtu8495 Allen RoadDublin [place] [id number] Folate [Mass/Vol] 7.9 ng/mL Normal Compreh ensive Internal Medicine; [facility] Work Phone: Comment on above: A serum folate yehuda ntration of less than 3.1 ng/mL isconsidered to represent clinical deficiency. PATIENT NOT FASTINGP ERFORMED BY: AMIRA LabCoVirtua BerlinMmyhfi5489 [facility] [id number] UGI W KUBon 01-20-2019 UGI W KUB *FINAL Date of Service: 01/20/2019 08:43 Adm #: [id number] Reading Dr:LUCIE GALE Signoff Dr: LUCIE GALE PROCEDURE: UGI W KUB - WXR 0132 REASON FOR EXAM: Post Laparoscopic Gastric sleeve RESULT: SINGLE CONTRAST UPPER GI WITH KUB: CLINICAL HISTORY: One day status post gastric sleeve. Total fluoroscopy time: 37 sec, images: 8, DAP: 90.91mGymGy. FINDINGS: KUB was performed: The bowel gas pattern appears unremarkable. The patient was given 3 mouthfuls of water soluble contrast. The patient swallowed without difficulty. There is free flow of contrast from the esophagus through the stomach into proximal small bowel without sign of obstruction or extravasation. Impression: No sign of obstruction or extravasation. [id number] This report has been produced using speech recognition. Original Interpreting Physician: LUCIE GALE M.D. Original Transcribed by/Date: PSCB Jan 20 2019 8:51A Original Electronically Signed by/Date: LUCIE GALE M.D. Jan 20 2019 8:51A Addendum Interpreting Physician: Addendum Transcribed by/Date: NO ADDENDUM Addendum Electronically Signed by/Date: Normal [facility] PLATELETon 01-19-2019 Platelets (Bld) [#/Vol] Normal 150-450 [facility] Comment on above: Result Comment: 284 Performed at [place] [address] Performed By: #### P LT #### Main Laboratory [address] [address] [facility] 01-19-2019 [facility] Patient Name: DIANA LEE MR#: [id number] Specimen #[id number] Source: Stomach remnant Gross Description Received in formalin and designated, stomach remnant is a 23.5 x 5.0 x 3.0 cm stapled and saccular segment of stomach. The serosa is smooth with mottled hemorrhagic discoloration and scant attached fat. There are approximately less than 10 soft and red to huang mucosal polyps measuring up to 0.3 cm in greatest dimensions. The mucosa is, otherwise, huang-pink with rugal folds and hemorrhage. The cut surfaces are grossly unremarkable. Balloon Maker sections including the largest of the polyps are submitted in 2 cassettes labeled A and B. Microscopic Description Slides examined; description omitted. Procedures/Addenda Final Diagnosis GASTRIC REMNANT, SLEEVE GASTRECTOMY: GASTRIC TISSUE WITH CHRONIC GASTRITIS. SEE COMMENT. COMMENT: A Giemsa special stain was performed, which is negative for H. pylori. Electronically Signed Out By VELMA FREITAS D.O. Normal [facility] Comment on above: Performed By: #### 8 217 #### [address] [address] CBC with Diffon 01-06-2019 AB IMMATURE NEUT 0.02 K/UL Normal 0.0-0.1 [facility] Comment on above: Performed By: #### C BCD #### [address] [address] ABS BASO 0.05 K/UL Normal 0.00-0.22 [facility] Comment on above: Performed By: #### C BCD #### [address] [address] ABS EOS 0.11 K/UL Normal 0-0.45 [facility] Comment on above: Performed By: #### C BCD #### [address] [address] ABS NEUTROPHILS 5.00 K/UL Normal 1.8-7.7 [facility] Comment on above: Performed By: #### C BCD #### [address] [address] ABS.NEUT.CALCULATED Normal [facility] Comment on above: Result Comment: 5.00 Performed at [address] [address] Performed By: #### C BCD #### [address] [address] Basophils/100 WBC (Bld) 0.70 % Normal 0-1 [facility] Comment on above: Performed By: #### C BCD #### [place] [address] [place] [address] DIFF TYPE AUTO DIFF Normal [facility] Comment on above: Performed By: #### C BCD #### [place] [address] [place] [address] Eosinophils/100 WBC (Bld) 1.50 % Normal 0-3 [facility] Comment on above: Performed By: #### C BCD #### [place] [address] [place] [address] Erythrocyte distribution width (RBC) [Ratio] 13.4 % Normal 11.7-15.0 [facility] Comment on above: Performed By: #### C BCD #### [place] [address] [place] [address] Hematocrit (Bld) [Volume fraction] 44.3 % High 36-44 [facility] Comment on above: Performed By: #### C BCD #### [place] [address] [place] [address] Hemoglobin (Bld) [Mass/Vol] 14.2 g/dL Normal 12.0-15.0 [facility] Comment on above: Performed By: #### C BCD #### [place] [address] [place] [address] Lymphocytes (Bld) [#/Vol] 1.68 10*3/uL Normal 1.2-3.2 [facility] Comment on above: Performed By: #### C BCD #### [place] [address] [place] [address] Lymphocytes/100 WBC (Bld) 23.20 % Normal 20-40 [facility] Comment on above: Performed By: #### C BCD #### [place] [address] [place] [address] MCH (RBC) [Entitic mass] 29.6 pg Normal 26-34 [facility] Comment on above: Performed By: #### C BCD #### [place] [address] [place] [address] MCHC (RBC) [Mass/Vol] 32.1 % Normal 31-37 [facility] Comment on above: Performed By: #### C BCD #### [facility] [place] [address] [address] [facility] [place] [address] MCV (RBC) [Entitic vol] 92.5 fL Normal 80-100 [facility] Comment on above: Performed By: #### C BCD #### [place] [address] [address] [place] [place] [address] MEAN PLT VOL 10.3 CU Normal 7.0-12.6 [facility] Comment on above: Performed By: #### C BCD #### [place] [address] [place] [address] Monocytes (Bld) [#/Vol] 0.39 10*3/uL Normal 0-0.8 [facility] Comment on above: Performed By: #### C BCD #### [place] [address] [place] [address] Monocytes/100 WBC (Bld) 5.40 % Normal 0-8 [facility] Comment on above: Performed By: #### C BCD #### [place] [address] [place] [address] Neutrophils/100 WBC (Bld) 68.90 % Normal 50-70 [facility] Comment on above: Performed By: #### C BCD #### [place] [address] [place] [address] Neutrophils/100 WBC (Bld) 0.30 % Normal 0.0-1.0 [facility] Comment on above: Performed By: #### C BCD #### [place] [address] [address] [facility] [place] [address] NRBC'S 0 /100 WBC Normal 0 [facility] Comment on above: Performed By: #### C BCD #### [facility] [place] [address] [place] [address] Platelets (Bld) [#/Vol] 323 10*3/uL Normal 150-450 [facility] Comment on above: Performed By: #### C BCD #### [place] [address] [place] [address] RBC (Bld) [#/Vol] 4.79 M/UL Normal 4.0-4.9 [facility] Comment on above: Performed By: #### C BCD #### [facility] [address] [place] [address] RDW-SD 46.4 FL Normal 37.0-54.0 [facility] Comment on above: Performed By: #### C BCD #### [facility] [place] [address] [place] [address] WBC (Bld) [#/Vol] 7.3 10*3/uL Normal 4.5-11.0 [facility] Comment on above: Performed By: #### C BCD #### [facility] [place] [address] [place] [address] [address] [facility] 01-06-2019 Albumin [Mass/Vol] 4.1 g/dL Normal 3.5-5.0 [facility] Comment on above: Performed By: #### C STOCK HANDLER #### [place] [address] [place] [address] Albumin/Globulin [Mass ratio] 1.4 {ratio} Low 1.5-3.0 [facility] Comment on above: Performed By: #### C STOCK HANDLER #### [facility] [place] [address] [place] [address] ALP [Catalytic activity/Vol] 103 U/L Normal 35-125 [facility] Comment on above: Performed By: #### C STOCK HANDLER #### [facility] [address] [place] [address] ALT [Catalytic activity/Vol] 28 U/L Normal 5-40 [facility] Comment on above: Performed By: #### C STOCK HANDLER #### [facility] [address] [place] [address] Anion gap [Moles/Vol] 12 mmol/L Normal 0-19 [facility] Comment on above: Performed By: #### C STOCK HANDLER #### [facility] [place] [address] [place] [address] AST [Catalytic activity/Vol] 23 U/L Normal 5-40 [facility] Comment on above: Performed By: #### C STOCK HANDLER #### [facility] [address] [address] Bilirubin [Mass/Vol] 0.5 mg/dL Normal 0.1-1.2 [facility] Comment on above: Performed By: #### C STOCK HANDLER #### [facility] [address] [address] Calcium [Mass/Vol] 9.2 mg/dL Normal 8.5-10.4 [facility] Comment on above: Performed By: #### C STOCK HANDLER #### [facility] [address] [address] Chloride [Moles/Vol] 106 mmol/L Normal 97-107 [facility] Comment on above: Performed By: #### C STOCK HANDLER #### [facility] [address] [address] CO2 [Moles/Vol] 23 mmol/L Low 24-31 [facility] Comment on above: Performed By: #### C STOCK HANDLER #### [facility] [address] [address] Creatinine [Mass/Vol] 0.8 mg/dL Normal 0.4-1.6 [facility] Comment on above: Performed By: #### C STOCK HANDLER #### [address] [address] GFR/1.73 sq M.predicted MDRD (S/P/Bld) [Vol rate/Area] Normal [facility] Comment on above: Result Comment: 81 GFR ml/min/1.73m2 Stage ----- 90 1 60-89 2 30-59 3 15-29 4 <15 5 For -Americans, multiply EGFR result by 1.210 Calculation not validated for patients under 18 years of age. Performed at [address] [address] Performed By: #### C STOCK HANDLER #### [address] [address] Globulin (S) [Mass/Vol] 2.9 g/dL Normal 1.9-3.7 [facility] Comment on above: Performed By: #### C STOCK HANDLER #### [facility] [address] [place] [address] Glucose [Mass/Vol] 79 mg/dL Normal 65-99 [facility] Comment on above: Performed By: #### C STOCK HANDLER #### [place] [address] [place] [address] Potassium [Moles/Vol] 4.6 mmol/L Normal 3.4-5.1 [facility] Comment on above: Performed By: #### C STOCK HANDLER #### [facility] [place] [address] [place] [address] Protein [Mass/Vol] 7.0 g/dL Normal 5.9-7.9 [facility] Comment on above: Performed By: #### C STOCK HANDLER #### [place] [address] [place] [address] Sodium [Moles/Vol] 141 mmol/L Normal 133-145 [facility] Comment on above: Performed By: #### C STOCK HANDLER #### [place] [address] [place] [address] Urea nitrogen [Mass/Vol] 11 mg/dL Normal 8-25 [facility] Comment on above: Performed By: #### C STOCK HANDLER #### [place] [address] [place] [address] Urea nitrogen/Creatinine [Mass ratio] 13.8 RATIO Normal 8-21 [facility] Comment on above: Performed By: #### C STOCK HANDLER #### [place] [address] [place] [address] HISTORY PHYSICALon 9 HISTORY PHYSICAL HNO ID: [id number] Author: Jan Hale) Vladic Service: ? Author Type: Physician Type: HANDP Filed: 10/09/2018 11:10 AM Note Text: HISTORY AND PHYSICAL Diana Lee, 48 year old female Current history and physical on file: Yes Is a new History and Physical required for today's visit? No Indication for procedure: Abdominal pain, Constipation, Diarrhea and Other abdominal distension PROCEDURE(S) SCHEDULED FOR: Colonoscopy with or without biopsies and with or without removal of polyps or lesions, dilation (any means), treatment of bleeding (any means), based on clinical findings. and EGD (Esophagogastroduodenoscopy ) with or without biopsies, removal of polyps or lesions, dilation ( any means), treatment of bleeding ( any means), Barrx treatment of Don's Esophagus, image tube placement or cryo therapy treatment based on clinical findings. BASELINE BEHAVIOR: Calm BASELINE ORIENTATION: A AND O x3 All medications and allergies reviewed: Yes Skin Assessment: Warm dry muscus membranes pink Airway/Respiratory Assessment: Airway: visualization of the uvula- Yes Mouth: opening greater than 2 fingerbreadths- Yes Neck: full range of motion- Yes Breath sounds clear/equal- Yes Cardiac Assessment: Regular rate and rhythm without murmur Abdominal Assessment: Abdomen soft, non-tender, no masses or organomegaly. Sedation Plan: MAC Additional Comments: None Jan Valladares MD [facility] OBSOLETEon 10-09-2018 OBSOLETE Procedure (ASCCON) DIANA LEE ([id number]) 1970 F Date Time Provider Department 10/09/18 10:45 AM JAN VALLADARES) ASCCON During your visit today, we recorded the following information about you: Pulse Respiration Blood pressure 76/minute 18/minute 99/59 Veda Wong LPN 10/09/2018 10:08 AM Signed PRE OP LEARNING ASSESSMENT PROCEDURE/SURGERY: GI PROCEDURES: Colonoscopy and EGD READINESS TO LEARN COGNITIVE ABILITY: Alert and oriented MOTIVATION TO LEARN: Interested FAMILY SUPPORT: High - Very involved in pt care PATIENT LEARNS BEST BY: Written Instruction - Hand-outs Verbal Instruction FACTORS AFFECTING LEARNING: None PHYSICAL LIMITATIONS AFFECTING LEARNING: None Electronically Signed By: Veda Wong LPN In Department: AMBULATORY SURGERY Jan Valladares MD 10/09/2018 11:10 AM Signed HISTORY AND PHYSICAL Diana Lee, 48 year old female Current history and physical on file: Yes Is a new History and Physical required for today's visit? No Indication for procedure: Abdominal pain, Constipation, Diarrhea and Other abdominal distension PROCEDURE(S) SCHEDULED FOR: Colonoscopy with or without biopsies and with or without removal of polyps or lesions, dilation (any means), treatment of bleeding (any means), based on clinical findings. and EGD (Esophagogastroduodenoscopy ) with or without biopsies, removal of polyps or lesions, dilation ( any means), treatment of bleeding ( any means), Barrx treatment of Don's Esophagus, image tube placement or cryo therapy treatment based on clinical findings. BASELINE BEHAVIOR: Calm BASELINE ORIENTATION: A AND O x3 All medications and allergies reviewed: Yes Skin Assessment: Warm dry muscus membranes pink Airway/Respiratory Assessment: Airway: visualization of the uvula- Yes Mouth: opening greater than 2 fingerbreadths- Yes Neck: full range of motion- Yes Breath sounds clear/equal- Yes Cardiac Assessment: Regular rate and rhythm without murmur Abdominal Assessment: Abdomen soft, non-tender, no masses or organomegaly. Sedation Plan: MAC Additional Comments: None MD Veda Alejandre LPN 10/09/2018 11:35 AM Signed POST OP LEARNING RESPONSE INSTRUCTION PROVIDED TO: Patient and Spouse METHOD OF INSTRUCTION: Individual instruction Group class instruction Written instruction - handouts Verbal instruction PATIENT / FAMILY RESPONSE: Verbalizes understanding of: POST-PROCEDURE INSTRUCTIONS-Correct actions to take to reduce post procedure complications FOLLOW-UP PLAN: Patient instructed to call with any further issues SUPPLEMENTAL MATERIAL: None REFERRAL (RECOMMENDATION): None Electronically Signed By: Veda Wong LPN In Department: AMBULATORY SURGERY Jacqueline March APRN.CRNA 10/09/2018 12:44 PM Signed POST ANESTHESIA EVALUATION NOTE SERVICE DATE: 10/09/2018 SERVICE TIME: 1143 : 1970 Vitals: There were no vitals filed for this visit. 10/09/18 1133 BP: 99/59 10/09/18 1133 Pulse: 76 10/09/18 1133 Resp: 18 10/09/18 1133 SpO2: 95% Validated Vital Signs: Yes POST ANES STATUS: No apparent anesthetic complications. The patient is appropriately hydrated with stable respiratory and cardiovascular status. Patient has safe and adequate airway control. The patient has appropriate pain relief and no significant post operative nausea or vomiting. The patient has achieved baseline mental status. Further assessment by Anesthesia Service: None Other Remarks: SIGNATURE: Jacqueline March APRN.CRNA PATIENT NAME: Diana Lee DATE: October 09, 2018 TIME: 12:43 PM PAGER/CONTACT #: [phone] Referring Provider: DIMITRIOS MCPHERSON [[id number]] Allergies As of Date: 10/09/2018 (No Known Allergies) Date Reviewed: 10/09/2018 Reviewed by: Jan Hale) Vladic - Fully Assessed Visit Diagnoses:Functional diarrhea [K59.1] Chronic idiopathic constipation [K59.04] Abdominal distension (gaseous) [R14.0] Generalized abdominal pain [R10.84] Order(s):COLONOSCOPY - DIAGNOSTIC [[id number]] Order #: [id number] EGD [[id number]] Order #: [id number] SURGICAL PATHOLOGY [[id number]] Order #: [id number] Prescriptions as of 10/09/2018 Sig: ATORVASTATIN 40 MG TABLET Take 40 mg by mouth once vaibhav* BUTALBITAL 50 MG-ACETAMINOPHE* Take by mouth. [id number] FF* Take 1 tablet by mouth as nee* VITAMIN B-12 INJECTION 1 mL by INJECTION(UNSPECIFIED* METOPROLOL SUCCINATE ER 50 MG* Take 50 mg by mouth once vaibhav* L.RHAMN A-191-L.ACID-B.BREVE-* Take by mouth. CHOLECALCIFEROL (VITAMIN D3) * Take 5,000 Units by mouth onc* THYROID (PORK) 120 MG TABLET Take 1 tablet by mouth once d* ASCORBIC ACID (VITAMIN C) 100* Use as instructed. * IBUPROFEN 200 MG TABLET 3-4 tablets every 6 hrs as ne* * ACCUPRIL 40 MG TABLET Take one(1) tablet daily. COMPOUNDED PRESCRIPTION Miralax 238 gm bottle, (2) 32* QUERCETIN DIHYDRATE (BULK) TX* 1 tablet once daily. PROGESTERONE MICRONIZED 200 M* Take 200 mg by mouth once pj* ESCITALOPRAM 10 MG TABLET Take 10 mg by mouth once vaibhav* OMEGA 3 FISH OIL ORAL Take by mouth. Problem List As Of Date 10/09/2018 Noted Resolved Chronic abdominal pain [R10.9, G89.29] INVALID FOR* More... Chronic fatigue syndrome [R53.82] INVALID FOR* Subclinical hypothyroidism [E03.9] INVALID FOR* Fibromyalgia [M79.7] INVALID FOR* Nonintractable migraine, unspecified migraine t*INVALID FOR* Other irritable bowel syndrome [K58.8] INVALID FOR* Rosacea [L71.9] INVALID FOR* Visit Notes: >> Veda Wong LPN [facility] Oct 09, 2018 10:07 AM Status: Signed PRE OP LEARNING ASSESSMENT PROCEDURE/SURGERY: GI PROCEDURES: Colonoscopy and EGD READINESS TO LEARN COGNITIVE ABILITY: Alert and oriented MOTIVATION TO LEARN: Interested FAMILY SUPPORT: High - Very involved in pt care PATIENT LEARNS BEST BY: Written Instruction - Hand-outs Verbal Instruction FACTORS AFFECTING LEARNING: None PHYSICAL LIMITATIONS AFFECTING LEARNING: None Electronically Signed By: Veda Wong LPN In Department: AMBULATORY SURGERY >> Veda Wong LPN [facility] Oct 09, 2018 11:35 AM Status: Signed POST OP LEARNING RESPONSE INSTRUCTION PROVIDED TO: Patient and Spouse METHOD OF INSTRUCTION: Individual instruction Group class instruction Written instruction - handouts Verbal instruction PATIENT / FAMILY RESPONSE: Verbalizes understanding of: POST-PROCEDURE INSTRUCTIONS-Correct actions to take to reduce post procedure complications FOLLOW-UP PLAN: Patient instructed to call with any further issues SUPPLEMENTAL MATERIAL: None REFERRAL (RECOMMENDATION): None Electronically Signed By: Veda Wong LPN In Department: AMBULATORY SURGERY Encounter Status:Closed by VEDA WONG LPN on 10/09/18 [facility] PROGRESSon 10-09-2018 PROGRESS HNO ID: [id number] Author: Jacqueline March Service: ? Author Type: Nurse Superintendent Compressor Stations Type: Progress Notes Filed: 10/09/2018 12:44 PM Note Text: POST ANESTHESIA EVALUATION NOTE SERVICE DATE: 10/09/2018 SERVICE TIME: 1143 : 1970 Vitals: There were no vitals filed for this visit. 10/09/18 1133 BP: 99/59 10/09/18 1133 Pulse: 76 10/09/18 1133 Resp: 18 10/09/18 1133 SpO2: 95% Validated Vital Signs: Yes POST ANES STATUS: No apparent anesthetic complications. The patient is appropriately hydrated with stable respiratory and cardiovascular status. Patient has safe and adequate airway control. The patient has appropriate pain relief and no significant post operative nausea or vomiting. The patient has achieved baseline mental status. Further assessment by Anesthesia Service: None Other Remarks: SIGNATURE: Jacqueline March APRN.CRNA PATIENT NAME: Diana Lee DATE: October 09, 2018 TIME: 12:43 PM PAGER/CONTACT #: [phone] [facility] SURGICAL PATHOLOGYon 019 SURGICAL PATHOLOGY ADDENDUM PRESENT Specimen originated from [facility] Specimen #: [id number] Submitting Physician: LESLI VALLADARES MD FINAL DIAGNOSIS 1. Duodenum, biopsy (A) - Duodenal mucosa with no significant pathologic change. 2. Stomach, antrum and body, biopsy (B) - Gastric antral and oxyntic-type mucosa with mild chronic inactive gastritis, see comment. - Negative for intestinal metaplasia. 3. Colon, random, biopsy (C) - Colonic mucosa with no significant pathologic change. 4. Colon, hepatic flexure polyp, biopsy (D) - Tubular adenoma. KATELIN/cornelia 10/10/2018 COMMENT 2. Given the presence of mild chronic inactive gastritis, a Helicobacter pylori immunohistochemical stain has been ordered, the results of which will be issued in an addendum. Adela Chavarria M.D. (Electronic Signature) SPECIMEN SUBMITTED A: DUODENUM, BIOPSY B: ANTRUM BODY, BIOPSY C: RANDOM COLON, BIOPSY D: HEPATIC FLEXURE POLYP ADDENDUM Date Ordered: 10/13/2018 Date Reported: 10/13/2018 This addendum is issued to report the results of a Helicobacter pylori immunohistochemical stain that was performed on the gastric biopsy ([id number], block B1) due to the presence of mild chronic inactive gastritis. The Helicobacter pylori immunohistochemical stain is negative for Helicobacter pylori organisms. The final diagnosis remains unchanged. Laboratory Developed Test (LDT) Disclaimer: Positive and negative controls stain appropriately. Performance characteristics of immunohistochemical, immunofluorescent and chromogenic in-situ hybridization tests have been determined by [facility] [place] ([facility]) in a manner consistent with CLIA requirements. One or more of these tests have not been cleared or approved by the FDA. [facility] is regulated under CLIA as qualified to perform high-complexity testing.These tests are used for clinical purposes. They should not be regarded as investigational or for research. 10/13/2018 Addendum Pathologist: Adela Chavarria M.D. Electronic Signature CLINICAL DATA ABD PAIN; CONSTIPATION; DIARRHEA COLD BX. A: R/O CELIAC B: R/O H PYLORI C: R/O MICROSCOPIC COLITIS GROSS DESCRIPTION A. Received in formalin is one piece of huang-orange, soft tissue measuring 0.5 x 0.4 x 0.2 cm. Totally submitted in one cassette. B. Received in formalin are two pieces of huang, soft tissue aggregating to 0.8 x 0.3 x 0.2 cm. Totally submitted in one cassette. C. Received in formalin are multiple pieces of huang, soft tissue aggregating to 3.0 x 0.3 x 0.2 cm. Totally submitted in two cassettes. D. Received in formalin is one piece of huang-orange, soft tissue measuring 0.3 x 0.3 x 0.3 cm. Totally submitted in one cassette. Gross examination performed at [facility], [address] [place] [id number] 10/09/2018 10:24:47 PM Date of Report: 10/10/2018 Date of Procedure: 10/09/2018 Date of Receipt: 10/09/2018 Submitted by: LESLI VALLADARES MD Location: [place] Diagnostic interpretation performed at [address] [address]. [place] Number: [id number] [facility] CNCOon 09-23-2018 CNCO Letter Text Normal [facility] CNOVon 09-23-2018 CNOV Office Visit (GSTCON ) DIANA LEE ([id number]) 1970 F Date Time Provider Department 09/23/18 8:30 AM JAN VALLADARES) GSTCON During your visit today, we recorded the following information about you: Pulse Respiration Blood pressure Weight 83/minute 16/minute 141/94 110.2 kg Height 1.626 m Jan Valladares MD 09/23/2018 9:14 AM Signed This note was created using World BXriter. Subjective Diana Lee is a 48 year old female. New patient referral. Referred by Dr Gamble for chronic abdominal pain. Onset of symptom since childhood. Progressed post . However has been stable since then. Food exacerbates: dairy and gluten products Associated with rash occurs on her back, alternating constipation and diarrhea. Experiences bloating and abdominal distension. No excessive eructation or flatulence reported. In past her PCP would prescribe atbx treatment for presumed diverticulitis and she noted immediately improvement of her GI symptoms. Recurring symptom quickly post atbx treatment. She has instituted a Low FODMAP diet which improves her symptoms. History of 2011 esophagogastroduodenoscopy and colonoscopy in [place], [place]. Dx diverticulosis and pud. CT abd/pelvis 2009 IMPRESSION: 1. ? Large amount of stool within colon. ?Colonic diverticuli without evidence of diverticulitis. 3. ?Tiny umbilical hernia containing fat. BOWEL MOVEMENT daily. She states she experiences all the types of [place]ibley Stool Chart stools. No blood in stools. Review of Systems Constitutional: Positive for fatigue. Negative for appetite change and unexpected weight change. HENT: Positive for trouble swallowing. Negative for mouth sores. Eyes: Negative for photophobia, pain, redness and itching. Respiratory: Negative for cough, choking and shortness of breath. Gastrointestinal: Positive for abdominal distention, abdominal pain, constipation, diarrhea and nausea. Negative for blood in stool and vomiting. Genitourinary: Negative for difficulty urinating, hematuria and menstrual problem. Musculoskeletal: Positive for arthralgias and back pain. Negative for joint swelling. Skin: Positive for rash. Neurological: Positive for headaches. Negative for dizziness, tremors and light-headedness. Psychiatric/Behavioral: Negative for dysphoric mood and sleep disturbance. The patient is nervous/anxious. Objective BP 141/94 Pulse 83 Resp 16 Ht 162.6 cm (5' 4) Wt 110.2 kg (243 lb) BMI 41.71 kg/m? Physical Exam Constitutional: She is oriented to person, place, and time. She appears well-nourished. Non-toxic appearance. No distress. HENT: Head: Normocephalic. Mouth/Throat: Uvula is midline, oropharynx is clear and moist and mucous membranes are normal. No oral lesions. Eyes: Conjunctivae and lids are normal. No scleral icterus. Neck: Trachea normal. No thyroid mass and no thyromegaly present. Cardiovascular: Normal rate, regular rhythm and normal heart sounds. No murmur heard. Pulmonary/Chest: Effort normal and breath sounds normal. Abdominal: Soft. Bowel sounds are normal. She exhibits no distension and no mass. There is no tenderness. Lymphadenopathy: She has no cervical adenopathy. Neurological: She is alert and oriented to person, place, and time. Skin: Rash noted. See Get Images for photo of upper back Psychiatric: She has a normal mood and affect. Her speech is normal and behavior is normal. Judgment and thought content normal. Cognition and memory are normal. Vitals reviewed. Assessment and Plan 1. Chronic abdominal pain 2. Abdominal distension 3. Alternating constipation and diarrhea. Clinical concern for predominate constipation based on prior history of CT scan 4. Diverticulosis of colon. 5. Rash on her back. Low suspicion for food allergies however celiac disease should be considered. Esophagogastroduodenoscopy arranged. Plan for duodenal biopsies. Colonoscopy arranged. Discussed with patient/patient metals sales representative the indications, alternatives, benefits and risks of procedure. Some of the possible risks include bleeding, infection, drug reaction, perforation, missed lesions, cardiopulmonary arrest or even , were also reviewed with patient/patient metals sales representative. SIBO breath testing. Patient notes improvement of symptom on Low FODMAP diet which she plans to continue. Based on SIBO breath testing will determine whether to consider atbx treatment. If the above tests are unremarkable then will work up to exclude exocrine pancreatic insufficiency. Attending Note: I have personally performed a face to face assessment of this Patient, which included an interview, physical exam and Assessment and Plan.? I have reviewed and confirmed the history and rosas findings as documented by the Physician Practice Manager and edited as appropriate. Jan Valladares MD 09/23/2018 9:12 AM Signed SPLIT DOSE MIRALAX-GATORADE PREPARATION Arrive one hour early for your procedure. To ensure a successful exam, please follow all instructions carefully. You MUST arrange a ride for the day of your exam. If you fail to arrange acceptable transportation, your procedure will need to be rescheduled. Please bring a list of all of your current medications, including any Ldse[place]te[place] medications with you. DIABETIC PATIENTS Use G2 or (Gatorade 2) Take only ? of your morning dose of insulin or tablets the day before your exam. Do not take any more of your diabetic medications until the procedure is over and you have resumed eating again. Drink regular liquids (not diabetic) and monitor your sugar throughout the day you are on clear liquids. If your sugar gets too low, drink some apple juice. PURCHASE THE FOLLOWING SUPPLIES AT YOUR LOCAL PHARMACY: - 4 Dulcolax laxative tablets containing 5mg of bisacodyl each (NOT Dulcolax stool softener) - 1- 8.3oz bottle Miralax (238 grams) or generic equivalent. - 64 oz. clear liquid (NOT red). Gatorade, G2, Gatorade, G2, Gatorade Ice, PowerAde or PowerAde Zero are acceptable. 7 DAYS BEFORE YOUR COLONOSCOPY: If you take aspirin or NSAIDS such as Advil, Motrin, Celebrex or Ibuprofen, you may continue to take them as usual unless otherwise instructed by your physician. You should discuss this with your physician in advance of the procedure. Ask your doctor for specific instructions if you take a blood thinner like Plavix, Pradaxa, Clopidogrel, Coumadin, Warfarin, Effient, Prasugrel or Lovenox. 3 DAYS BEFORE COLONOSCOPY: Stop eating all nutes, seeds and popcorn. 1 DAY BEFORE YOUR COLONOSCOPY: Begin a clear liquid diet. Drink at least 8 glasses of water during the day to avoid dehydration. At 5pm, take 4 Dulcolax tablets. Mix 64oz. liquid with 8.[address] in the refrigerator (DO NOT ADD ICE) At 6pm, drink 32 oz. of the Miralax/Gatorade solution. 4 hours prior to procedure, drink the remaining 32 oz. of the Miralax/Gatorade solution. Clear Liquid Not Clear Liquid Gatorade, Pedialyte or PowerAde No red items of any kind Clear broth or bouillon No alcohol Coffee or tea (no milk or non-dairy creamer) No milk or non-dairy creamers Carbonated and non-carbonated soft drinks No noodles or vegetables in soup Baljit-Aid or other fruit flavored drinks No juice with pulp Strained fruit juices (no pulp) No liquid you cannot see through Jell-O, popsicles, hard candy No gum or candy DAY OF YOUR COLONOSCOPY: You may take your blood pressure or heart medication with a sip of water up to 3 hours before your procedure. 2 hours before, stop drinking all clear liquids. You are ready for the exam if you followed all instructions and your stool is no longer formed, but clear or yellow liquid. COLON CLEANSING TIPS 1. Stay near a toilet! You will have diarrhea, which can be quite sudden. This is normal. 2. It is common to experience abdominal discomfort until the stool has flushed from your colon (this may take 2-4 hours, and occasionally significantly longer). 3. Rarely, people may experience nausea or vomiting with the prep. If this occurs, give yourself a 30-90 minute break, rinse your mouth or brush your teeth, then continue drinking the prep solution. 4. Anal skin irritation or a flare of hemorrhoid inflammation may occur and can be treated with a variety of over the counter remedies including hydrocortisone creams, baby wipes or Tucks pads. Avoid products containing alcohol. If you have a prescription for hemorrhoid cream, you may use it. Do not use suppositories. Referring Provider: MOHINDER WETZEL [[id number]] Allergies As of Date: 09/23/2018 (No Known Allergies) Date Reviewed: 09/23/2018 Reviewed by: Jan Hale) Vladic - Fully Assessed Reason for Visit: Abdominal Pain [1] Gas [49] Primary Visit Diagnosis:Functional diarrhea [K59.1] Other Visit Diagnoses:Chronic idiopathic constipation [K59.04] Abdominal distension (gaseous) [R14.0] Generalized abdominal pain [R10.84] Rash [R21] Order(s):INSERT IV ([place]) [3363515] Order #: [id number]: 1 FUTURE Miralax / Gatorade PrepMiralax 238 gm bottle, (2) 32 oz bottles of Gatorade, AND 4 Dulcolax 5 mg tabs- as directed per instructionsDisp: Rfl: INSERT IV ([place]) [8388875] Order #: [id number]: 1 COLONOSCOPY - DIAGNOSTIC [[id number]] Order #: [id number] FUTURE EGD [6671288] Order #: [id number] FUTURE BREATH TEST GLUCOSE [4828098] Order #: [id number] FUTURE Prescriptions as of 09/23/2018 Sig: ATORVASTATIN 40 MG TABLET Take 40 mg by mouth once vaibhav* [id number]-[id number] FF* Take 1 tablet by mouth as nee* VITAMIN B-12 INJECTION 1 mL by INJECTION(UNSPECIFIED* METOPROLOL SUCCINATE ER 50 MG* Take 50 mg by mouth once vaibhav* L.RHAMN A-191-L.ACID-B.BREVE-* Take by mouth. CHOLECALCIFEROL (VITAMIN D3) * Take 5,000 Units by mouth onc* THYROID (PORK) 120 MG TABLET Take 1 tablet by mouth once d* ASCORBIC ACID (VITAMIN C) 100* Use as instructed. * ACCUPRIL 40 MG TABLET Take one(1) tablet daily. COMPOUNDED PRESCRIPTION Miralax 238 gm bottle, (2) 32* BUTALBITAL 50 MG-ACETAMINOPHE* Take by mouth. QUERCETIN DIHYDRATE (BULK) TX* 1 tablet once daily. PROGESTERONE MICRONIZED 200 M* Take 200 mg by mouth once pj* ESCITALOPRAM 10 MG TABLET Take 10 mg by mouth once vaibhav* OMEGA 3 FISH OIL ORAL Take by mouth. * IBUPROFEN 200 MG TABLET 3-4 tablets every 6 hrs as ne* Problem List As Of Date 09/23/2018 Noted Resolved Chronic abdominal pain [R10.9, G89.29] INVALID FOR* More... Chronic fatigue syndrome [R53.82] INVALID FOR* Subclinical hypothyroidism [E03.9] INVALID FOR* Fibromyalgia [M79.7] INVALID FOR* Nonintractable migraine, unspecified migraine t*INVALID FOR* Other irritable bowel syndrome [K58.8] INVALID FOR* Rosacea [L71.9] INVALID FOR* Other instructions from your clinician: SPLIT DOSE MIRALAX-GATORADE PREPARATION Arrive one hour early for your procedure. To ensure a successful exam, please follow all instructions carefully. You MUST arrange a ride for the day of your exam. If you fail to arrange acceptable transportation, your procedure will need to be rescheduled. Please bring a list of all of your current medications, including any [place] medications with you. DIABETIC PATIENTS Use G2 or (Gatorade 2) Take only ? of your morning dose of insulin or tablets the day before your exam. Do not take any more of your diabetic medications until the procedure is over and you have resumed eating again. Drink regular liquids (not diabetic) and monitor your sugar throughout the day you are on clear liquids. If your sugar gets too low, drink some apple juice. PURCHASE THE FOLLOWING SUPPLIES AT YOUR LOCAL PHARMACY: - 4 Dulcolax laxative tablets containing 5mg of bisacodyl each (NOT Dulcolax stool softener) - 1- 8.3oz bottle Miralax (238 grams) or generic equivalent. - 64 oz. clear liquid (NOT red). Gatorade, G2, Gatorade, G2, Gatorade Ice, PowerAde or PowerAde Zero are acceptable. 7 DAYS BEFORE YOUR COLONOSCOPY: If you take aspirin or NSAIDS such as Advil, Motrin, Celebrex or Ibuprofen, you may continue to take them as usual unless otherwise instructed by your physician. You should discuss this with your physician in advance of the procedure. Ask your doctor for specific instructions if you take a blood thinner like Plavix, Pradaxa, Clopidogrel, Coumadin, Warfarin, Effient, Prasugrel or Lovenox. 3 DAYS BEFORE COLONOSCOPY: Stop eating all nutes, seeds and popcorn. 1 DAY BEFORE YOUR COLONOSCOPY: Begin a clear liquid diet. Drink at least 8 glasses of water during the day to avoid dehydration. At 5pm, take 4 Dulcolax tablets. Mix 64oz. liquid with 8.[address] in the refrigerator (DO NOT ADD ICE) At 6pm, drink 32 oz. of the Miralax/Gatorade solution. 4 hours prior to procedure, drink the remaining 32 oz. of the Miralax/Gatorade solution. Clear Liquid Not Clear Liquid Gatorade, Pedialyte or PowerAde No red items of any kind Clear broth or bouillon No alcohol Coffee or tea (no milk or non-dairy creamer) No milk or non-dairy creamers Carbonated and non-carbonated soft drinks No noodles or vegetables in soup Baljit-Aid or other fruit flavored drinks No juice with pulp Strained fruit juices (no pulp) No liquid you cannot see through Jell-O, popsicles, hard candy No gum or candy DAY OF YOUR COLONOSCOPY: You may take your blood pressure or heart medication with a sip of water up to 3 hours before your procedure. 2 hours before, stop drinking all clear liquids. You are ready for the exam if you followed all instructions and your stool is no longer formed, but clear or yellow liquid. COLON CLEANSING TIPS 1. Stay near a toilet! You will have diarrhea, which can be quite sudden. This is normal. 2. It is common to experience abdominal discomfort until the stool has flushed from your colon (this may take 2-4 hours, and occasionally significantly longer). 3. Rarely, people may experience nausea or vomiting with the prep. If this occurs, give yourself a 30-90 minute break, rinse your mouth or brush your teeth, then continue drinking the prep solution. 4. Anal skin irritation or a flare of hemorrhoid inflammation may occur and can be treated with a variety of over the counter remedies including hydrocortisone creams, baby wipes or Tucks pads. Avoid products containing alcohol. If you have a prescription for hemorrhoid cream, you may use it. Do not use suppositories. Prescriptions ordered this encounter Disp Refills Start End COMPOUNDED PRESCRIPTION 09/23/2018 Class: OTC Sig: Miralax 238 gm bottle, (2) 32 oz bottles of Gatorade, AND 4 Dulcolax 5 mg tabs- as directed per instructions Letter Text Encounter Status:Closed by JAN VALLADARES MD on 09/23/18 [facility] Lisha 09-23-2018 CNPN Telephone (GSTCON) DIANA LEE ([id number]) 1970 F Date Time Provider Department 09/23/18 JAN VALLADARES) GSTPAULETTE During your visit today, we recorded the following information about you: Suziemathew Musa Asst 09/23/2018 9:[address] Valladares order Breath testing for patient. Local hospital systems for patient are [facility] and [facility]. Patient aware I will be researching where to send the req to, and call patient with scheduling phone number. Suzie Shepherdt [facility] 10[facility]08 AM Signed Spoke with Nanette at [facility]. She stated they do allow the Breath Tests to be done at their facility. Breath Test requisition has been fwd over to [facility]. Faxed to [phone] Patient notified. Suzie Goss Asst Allergies As of Date: 09/23/2018 (No Known Allergies) Date Reviewed: 09/23/2018 Reviewed by: Jan Hale) Blaine - Fully Assessed Reason for Visit: Local Breath Test Locations [Other] Prescriptions as of 09/23/2018 Sig: COMPOUNDED PRESCRIPTION Miralax 238 gm bottle, (2) 32* ATORVASTATIN 40 MG TABLET Take 40 mg by mouth once vaibhav* BUTALBITAL 50 MG-ACETAMINOPHE* Take by mouth. QLEKYEFQIY-WNEZDRHYCAEPW-TV FF* Take 1 tablet by mouth as nee* VITAMIN B-12 INJECTION 1 mL by INJECTION(UNSPECIFIED* QUERCETIN DIHYDRATE (BULK) TX* 1 tablet once daily. METOPROLOL SUCCINATE ER 50 MG* Take 50 mg by mouth once vaibhav* L.RHAMN A-191-L.ACID-B.BREVE-* Take by mouth. PROGESTERONE MICRONIZED 200 M* Take 200 mg by mouth once pj* CHOLECALCIFEROL (VITAMIN D3) * Take 5,000 Units by mouth onc* THYROID (PORK) 120 MG TABLET Take 1 tablet by mouth once d* ESCITALOPRAM 10 MG TABLET Take 10 mg by mouth once vaibhav* ASCORBIC ACID (VITAMIN C) 100* Use as instructed. OMEGA 3 FISH OIL ORAL Take by mouth. * IBUPROFEN 200 MG TABLET 3-4 tablets every 6 hrs as ne* * ACCUPRIL 40 MG TABLET Take one(1) tablet daily. Problem List As Of Date 09/23/2018 Noted Resolved Chronic abdominal pain [R10.9, G89.29] INVALID FOR* More... Chronic fatigue syndrome [R53.82] INVALID FOR* Subclinical hypothyroidism [E03.9] INVALID FOR* Fibromyalgia [M79.7] INVALID FOR* Nonintractable migraine, unspecified migraine t*INVALID FOR* Other irritable bowel syndrome [K58.8] INVALID FOR* Rosacea [L71.9] INVALID FOR* Encounter Status:Closed by SUZIE BASSETT on 09/23/18 [facility] PROGRESSon 09-23-2018 PROGRESS HNO ID: [id number] Author: Jan Hale) Blaine Service: ? Author Type: Physician Type: Progress Notes Filed: 09/23/2018 9:14 AM Note Text: This note was created using World BXriter. Subjective Diana Lee is a 48 year old female. New patient referral. Referred by Dr Gamble for chronic abdominal pain. Onset of symptom since childhood. Progressed post . However has been stable since then. Food exacerbates: dairy and gluten products Associated with rash occurs on her back, alternating constipation and diarrhea. Experiences bloating and abdominal distension. No excessive eructation or flatulence reported. In past her PCP would prescribe atbx treatment for presumed diverticulitis and she noted immediately improvement of her GI symptoms. Recurring symptom quickly post atbx treatment. She has instituted a Low FODMAP diet which improves her symptoms. History of 2011 esophagogastroduodenoscopy and colonoscopy in [place], [place]. Dx diverticulosis and pud. CT abd/pelvis 2009 IMPRESSION: 1. ? Large amount of stool within colon. ?Colonic diverticuli without evidence of diverticulitis. 3. ?Tiny umbilical hernia containing fat. BOWEL MOVEMENT daily. She states she experiences all the types of [place] Stool Chart stools. No blood in stools. Review of Systems Constitutional: Positive for fatigue. Negative for appetite change and unexpected weight change. HENT: Positive for trouble swallowing. Negative for mouth sores. Eyes: Negative for photophobia, pain, redness and itching. Respiratory: Negative for cough, choking and shortness of breath. Gastrointestinal: Positive for abdominal distention, abdominal pain, constipation, diarrhea and nausea. Negative for blood in stool and vomiting. Genitourinary: Negative for difficulty urinating, hematuria and menstrual problem. Musculoskeletal: Positive for arthralgias and back pain. Negative for joint swelling. Skin: Positive for rash. Neurological: Positive for headaches. Negative for dizziness, tremors and light-headedness. Psychiatric/Behavioral: Negative for dysphoric mood and sleep disturbance. The patient is nervous/anxious. Objective BP 141/94 Pulse 83 Resp 16 Ht 162.6 cm (5' 4) Wt 110.2 kg (243 lb) BMI 41.71 kg/m? Physical Exam Constitutional: She is oriented to person, place, and time. She appears well-nourished. Non-toxic appearance. No distress. HENT: Head: Normocephalic. Mouth/Throat: Uvula is midline, oropharynx is clear and moist and mucous membranes are normal. No oral lesions. Eyes: Conjunctivae and lids are normal. No scleral icterus. Neck: Trachea normal. No thyroid mass and no thyromegaly present. Cardiovascular: Normal rate, regular rhythm and normal heart sounds. No murmur heard. Pulmonary/Chest: Effort normal and breath sounds normal. Abdominal: Soft. Bowel sounds are normal. She exhibits no distension and no mass. There is no tenderness. Lymphadenopathy: She has no cervical adenopathy. Neurological: She is alert and oriented to person, place, and time. Skin: Rash noted. See Get Images for photo of upper back Psychiatric: She has a normal mood and affect. Her speech is normal and behavior is normal. Judgment and thought content normal. Cognition and memory are normal. Vitals reviewed. Assessment and Plan 1. Chronic abdominal pain 2. Abdominal distension 3. Alternating constipation and diarrhea. Clinical concern for predominate constipation based on prior history of CT scan 4. Diverticulosis of colon. 5. Rash on her back. Low suspicion for food allergies however celiac disease should be considered. Esophagogastroduodenoscopy arranged. Plan for duodenal biopsies. Colonoscopy arranged. Discussed with patient/patient metals sales representative the indications, alternatives, benefits and risks of procedure. Some of the possible risks include bleeding, infection, drug reaction, perforation, missed lesions, cardiopulmonary arrest or even , were also reviewed with patient/patient metals sales representative. SIBO breath testing. Patient notes improvement of symptom on Low FODMAP diet which she plans to continue. Based on SIBO breath testing will determine whether to consider atbx treatment. If the above tests are unremarkable then will work up to exclude exocrine pancreatic insufficiency. Attending Note: I have personally performed a face to face assessment of this Patient, which included an interview, physical exam and Assessment and Plan.? I have reviewed and confirmed the history and rosas findings as documented by the Physician Practice Manager and edited as appropriate. [facility] 10-15-2017 CNCO Letter Text Diana Lee Lisa Cruz MD [place] [address] October 15, 2017 Dimitrios Mcpherson NP [address] [place] [address] Re: Diana Lee Date of : 1970 Dear Dimitrios Mcpherson NP, I had the pleasure of seeing Diana Lee for an Allergy and Immunology evaluation on 10/09/2017. A copy of my clinic note summarizing her visit is enclosed. Thank you for allowing my participation in the care of your patient. Please feel free to call if any questions or concerns arise regarding her care. Sincerely, Lisa Cruz MD [facility] Final Surgical Pathology Rep [facility] 02-12-2017 Final Surgical Pathology Report . Pathology ReportsAccession: Collected Date/Time: Received Date/Time: Pathologist:[id number] 02/07/2017 09:06 EST 02/11/2017 09:06 MD LESLEE GAMEZ Final Surgical Pathology ReportDIAGNOSIS:SKIN, LEFT OCCIPITAL SCALP, EXCISION: - VERRUCA.COMMENT:[facility] - A# [id number] INFORMATION:DISORDER OF THE SKIN AND SUBCUTANEOUS TISSUE, UNSPECIFIEDSPECIMEN:A SKIN, OTHER - LEFT OCCIPITAL SCALPGROSS DESCRIPTION:_Received in formalin labeled with the patient's name is a 0.6 cm huang, diffusely granular circular skin excised to a greatest depth of 0.4 cm. No orientation is given. The specimen is inked and bisected. A S -1Dictated by EMILY MARES ([facility])MICROSCOPIC DESCRIPTION:Slides reviewed.Electronically Signed byPathology Report verified by [facility] HealthcareElectronically signed by LESLEE Arriola out Date: 02/12/2017 17:43Performing Lab: [facility], [address] [place] [address] [facility] ([place]) Comment on above: Performed By: #### S PFR ####[address] [address] Anti-TPO Antibody (83562)Ord ered By: Tree Specialist on 05-17-2014 TPO Ab Qn 191 [IU]/mL Abnormal 0-34 [facility]; [facility] Work Phone: Comment on above: PATIENT NOT FASTINGP ERFORMED BY: AMIRA [facility] Cbxagw5975 [facility] [id number] CALCIFIDIOL (98770) VIT D 25 Ordered By: Tree Specialist on 05-17-2014 25-hydroxyvitamin D [Mass/Vol] 42.8 ng/mL Normal 30.0-100.0 [facility]; [facility] Work Phone: Comment on above: Vitamin D deficiency has been defined by the [place] ofMedicine and an Endocrine Society practice guideline as alevel of serum 25-OH vitamin D less than 20 ng/mL (1,2).The Endocrine Society went on to further define vitamin Dinsufficiency as a level between 21 and 29 ng/mL (2).1. IOM ([place] of Medicine). 2010. Dietary reference intakes for calcium and D. [place]: The National Academies Press.2. Brice MF, Olu FRANCIS, Jennifer JIMENEZ, et al. Evaluation, treatment, and prevention of vitamin D deficiency: an Endocrine Society clinical practice guideline. JCEM. 2010; 96(7):1911-30. PATIENT NOT FASTINGP ERFORMED BY: AMIRA Rios Ecosdl8144 [facility] [id number] CBC with auto diff (60140)Or dered By: Tree Specialist on 05-17-2014 Basophils (Bld) [#/Vol] 0.0 10*3/uL Normal 0.0-0.2 [facility]; [facility] Work Phone: Comment on above: PATIENT NOT FASTINGP ERFORMED BY: AMIRA Rios Mbkxif9496 [facility] [id number] Information: [id number] Basophils/100 WBC (Bld) 0 % Normal [facility]; [facility] Work Phone: Comment on above: PATIENT NOT FASTINGP ERFORMED BY: AMIRA Rios Gczkdf1449 [facility] [id number] Information: [id number],[id number] Eosinophils (Bld) [#/Vol] 0.0 10*3/uL Normal 0.0-0.4 [facility]; [facility] Work Phone: Comment on above: PATIENT NOT FASTINGP ERFORMED BY: AMIRA [facility] Rvqraw2224 [facility] [id number] Information: [id number] Eosinophils/100 WBC (Bld) 0 % Normal [facility]; [facility] Work Phone: Comment on above: PATIENT NOT FASTINGP ERFORMED BY: Claudine[address] [id number] Information: [id number] Erythrocyte distribution width (RBC) [Ratio] 13.7 % Normal 12.3-15.4 [facility]; [facility] Work Phone: Comment on above: PATIENT NOT FASTINGP ERFORMED BY: AMIRA Rios Hellgr6749 [facility] [id number] Information: [id number],[id number] Hematocrit (Bld) [Volume fraction] 44.3 % Normal 34.0-46.6 [facility]; [facility] Work Phone: Comment on above: PATIENT NOT FASTINGP ERFORMED BY: AMIRA iRos Yqsrfn7498 [facility] [id number] Information: [id number],[id number] Hemoglobin (Bld) [Mass/Vol] 14.5 g/dL Normal 11.1-15.9 [facility]; [facility] Work Phone: Comment on above: PATIENT NOT FASTINGP ERFORMED BY: AMIRA Rios Lenscl7728 [facility] [id number] Information: [id number],[id number] Immature granulocytes (Bld) [#/Vol] 0.0 10*3/uL Normal 0.0-0.1 [facility]; [facility] Work Phone: Comment on above: PATIENT NOT FASTINGP ERFORMED BY: AMIRA Rios Wimste[address] [id number] Information: [id number] Immature granulocytes/100 WBC (Bld) 0 % Normal [facility]; [facility] Work Phone: Comment on above: PATIENT NOT FASTINGP ERFORMED BY: AMIRA Rios Hffhbl8422 [facility] [id number] Information: [id number] Lymphocytes (Bld) [#/Vol] 1.7 10*3/uL Normal 0.7-3.1 [facility]; [facility] Work Phone: Comment on above: PATIENT NOT FASTINGP ERFORMED BY: AMIRA ChowAmanda V[place] 9807170 [facility] [id number] Information: [id number],[id number] Lymphocytes/100 WBC (Bld) 30 % Normal [facility]; [facility] Work Phone: Comment on above: PATIENT NOT FASTINGP ERFORMED BY: AMIRA Rios Ikbecl6372 [facility] [id number] Information: [id number] MCH (RBC) [Entitic mass] 28.6 pg Normal 26.6-33.0 [facility]; [facility] Work Phone: Comment on above: PATIENT NOT FASTINGP ERFORMED BY: AMIRA RodriguezMadison [facility] [id number] Information: [id number] MCHC (RBC) [Mass/Vol] 32.7 g/dL Normal 31.5-35.7 [facility]; [facility] Work Phone: Comment on above: PATIENT NOT FASTINGP ERFORMED BY: AMIRA Peter6370 [facility] [id number] Information: [id number] MCV (RBC) [Entitic vol] 87 fL Normal 79-97 [facility]; [facility] Work Phone: Comment on above: PATIENT NOT FASTINGP ERFORMED BY: AMIRA Marielin6370 [facility] [id number] Information: [id number] Monocytes (Bld) [#/Vol] 0.4 10*3/uL Normal 0.1-0.9 [facility]; [facility] Work Phone: Comment on above: PATIENT NOT FASTINGP ERFORMED BY: AMIRA RodriguezMadison Medical Center [id number] Information: [id number],[id number] Monocytes/100 WBC (Bld) 7 % Normal [facility]; [facility] Work Phone: Comment on above: PATIENT NOT FASTINGP ERFORMED BY: AMIRA Marielin6370 [facility] [id number] Information: [id number] Neutrophils (Bld) [#/Vol] 3.7 10*3/uL Normal 1.4-7.0 [facility]; [facility] Work Phone: Comment on above: PATIENT NOT FASTINGP ERFORMED BY: AMIRA Marielin6370 [facility] [id number] Information: [id number] Neutrophils/100 WBC (Bld) 63 % Normal [facility]; [facility] Work Phone: Comment on above: PATIENT NOT FASTINGP ERFORMED BY: AMIRA Peter6370 AllenTe[facility] Centerin [place] [id number] Information: [id number] Platelets (Bld) [#/Vol] 334 10*3/uL Normal 150-379 [facility]; [facility] Work Phone: Comment on above: PATIENT NOT FASTINGP ERFORMED BY: AMIRA Peter[address] [facility] [id number] Information: [id number] RBC (Bld) [#/Vol] 5.07 10*6/uL Normal 3.77-5.28 Compr [facility] Internal [facility]; [facility] Work Phone: Comment on above: PATIENT NOT FASTINGP ERFORMED BY: AMIRA Peter6370 [facility] [id number] Information: [id number] WBC (Bld) [#/Vol] 5.8 10*3/uL Normal 3.4-10.8 Compre [facility]; [facility] Work Phone: Comment on above: PATIENT NOT FASTINGP ERFORMED BY: AMIRA Peter6370 [facility] [id number] Information: [id number] METABOLIC PANEL, COMPREHENSI VE (92397)Ordered By: Tree Specialist on 05-17-2014 Albumin [Mass/Vol] 4.4 g/dL Normal 3.5-5.5 Compre [facility]; [facility] Work Phone: Comment on above: PATIENT NOT FASTINGP ERFORMED BY: AMIRA LabMatilde MarieVeqhhn7138 [facility] [id number] Albumin/Globulin [Mass ratio] 1.8 {ratio} Normal 1.1-2.5 [facility]; [facility] Work Phone: Comment on above: PATIENT NOT FASTINGP ERFORMED BY: AMIRA LabCotameka MarieTpcesa5285 Allen RoadDublin [place] [id number] ALP [Catalytic activity/Vol] 86 U/L Normal 39-117 [facility]; [facility] Work Phone: Comment on above: PATIENT NOT FASTINGP ERFORMED BY: AMIRA Peter6[address] RoadDublin [place] [id number] ALT [Catalytic activity/Vol] 18 U/L Normal 0-32 [facility]; [facility] Work Phone: Comment on above: PATIENT NOT FASTINGP ERFORMED BY: AMIRA LabIsabelrp Bfemyx5878 [address] RoadDublin [place] [id number] AST [Catalytic activity/Vol] 15 U/L Normal 0-40 [facility]; [facility] Work Phone: Comment on above: PATIENT NOT FASTINGP ERFORMED BY: AMIRA Zoltan Peter6[address] RoadDublin [place] [id number] Bilirubin [Mass/Vol] 0.4 mg/dL Normal 0.0-1.2 [facility]; [facility] Work Phone: Comment on above: PATIENT NOT FASTINGP ERFORMED BY: AMIRA ClaudineCo Iqjimh8365 [address] RoadDublin [place] [id number] Calcium [Mass/Vol] 9.6 mg/dL Normal 8.7-10.2 [facility] Internal [facility]; [facility] Work Phone: Comment on above: PATIENT NOT FASTINGP ERFORMED BY: [facility] Ogrmcn6[address] RoadDublin [place] [id number] Chloride [Moles/Vol] 97 mmol/L Normal 97-108 [facility]; [facility] Work Phone: Comment on above: PATIENT NOT FASTINGP ERFORMED BY: CB [facility] Qnktrt6401 [address] RoadDublin [place] [id number] CO2 [Moles/Vol] 24 mmol/L Normal 18-29 [facility]; [facility] Work Phone: Comment on above: PATIENT NOT FASTINGP ERFORMED BY: CB [facility] Zqfawd5002 [address] RoadDublin [place] [id number] Creatinine [Mass/Vol] 0.69 mg/dL Normal 0.57-1.00 [facility]; [facility] Work Phone: Comment on above: PATIENT NOT FASTINGP ERFORMED BY: AMIRA [facility] Lsvgln[address] [facility]bl[facility] [place] [id number] GFR/1.73 sq M.predicted among blacks CKD-EPI (S/P/Bld) [Vol rate/Area] 122 mL/min/1.73 Normal [facility]; [facility] Work Phone: Comment on above: PATIENT NOT FASTINGP ERFORMED BY: CB [facility] Ozyaxw0271 [address] RoadAtrium Health Mercyin [place] [id number] GFR/1.73 sq M.predicted among non-blacks CKD-EPI (S/P/Bld) [Vol rate/Area] 106 mL/min/1.73 Normal [facility]; [facility] Work Phone: Comment on above: PATIENT NOT FASTINGP ERFORMED BY: [facility] Nidbpz6716 [address] [facility] [id number] Globulin (S) [Mass/Vol] 2.4 g/dL Normal 1.5-4.5 [facility]; [facility] Work Phone: Comment on above: PATIENT NOT FASTINGP ERFORMED BY: [facility] Acognb38[address] [facility] [id number] Glucose [Mass/Vol] 99 mg/dL Normal 65-99 [facility]; [facility] Work Phone: Comment on above: PATIENT NOT FASTINGP ERFORMED BY: CB [facility] Jmnrmd6503 [address] [facility] [place] [id number] Potassium [Moles/Vol] 4.3 mmol/L Normal 3.5-5.2 [facility]; [facility] Work Phone: Comment on above: PATIENT NOT FASTINGP ERFORMED BY: CB [facility] Wibhqo[address] [facility] [place] [id number] Protein [Mass/Vol] 6.8 g/dL Normal 6.0-8.5 [facility]; [facility] Work Phone: Comment on above: PATIENT NOT FASTINGP ERFORMED BY: AMIRA LabMatilde Mqmhwt9884 [address] [facility] [place] [id number] Sodium [Moles/Vol] 139 mmol/L Normal 134-144 [facility]; [facility] Work Phone: Comment on above: PATIENT NOT FASTINGP ERFORMED BY: AMIRA [facility] Mldygd[address] [facility] [place] [id number] Urea nitrogen [Mass/Vol] 12 mg/dL Normal 6-24 [facility]; [facility] Work Phone: Comment on above: PATIENT NOT FASTINGP ERFORMED BY: AMIRA LabMatilde MarieAopvgf4754 [address] [facility] [id number] Urea nitrogen/Creatinine [Mass ratio] 17 mg/mg Normal 9-23 [facility]; [facility] Work Phone: Comment on above: PATIENT NOT FASTINGP ERFORMED BY: AMIRA LabIsabel Roujpu0539 [address] [facility] [id number] T3, FREE (TRIDOTHYRONINE) ([id number])Ordered By: Tree Specialist on 05-17-2014 Free T3 [Mass/Vol] 5.1 pg/mL Abnormal 2.0-4.4 [facility]; [facility] Work Phone: Comment on above: PATIENT NOT FASTINGP ERFORMED BY: AMIRA [facility] Manawg7339 [facility] [place] [id number] T4, FREE (THYROXINE) (40814) Ordered By: Tree Specialist on 05-17-2014 Free T4 [Mass/Vol] 0.89 ng/dL Normal 0.82-1.77 [facility]; [facility] Work Phone: Comment on above: PATIENT NOT FASTINGP ERFORMED BY: AMIRA [facility] Sdeoup[address] [facility]bl[facility] [place] [id number] TSH (19591)Ordered By: Syste m Seismograph Operator Helper on 05-17-2014 TSH Qn 0.512 {uIU/mL} Normal 0.450-4.50 0 [facility]; [facility] Work Phone: Comment on above: PATIENT NOT FASTINGP ERFORMED BY: AMIRA De La Fuente[address] [facility] [place] [id number] URINALYSIS, W/ MICRO (27097) Ordered By: Tree Specialist on 05-17-2014 Appearance (U) Clear Normal Comprehens [facility]omas [facility]; [facility] Work Phone: Comment on above: PATIENT NOT FASTINGP ERFORMED BY: AMIRA Zoltan Iknoqo39[address] [facility] [place] [id number] Bilirubin Ql (U) Negative Normal Comprehe nsive Internal Medicine; [facility] Work Phone: Comment on above: PATIENT NOT FASTINGP ERFORMED BY: AMIRA Zoltan De La Fuente[address] [facility] [id number] Color (U) Yellow Normal [facility]; [facility] Work Phone: Comment on above: PATIENT NOT FASTINGP ERFORMED BY: AMIRA Zoltan De La Fuente[address] [facility] [id number] Glucose Ql (U) Negative Normal Comprehens [facility]; [facility] Work Phone: Comment on above: PATIENT NOT FASTINGP ERFORMED BY: AMIRA Zoltan Peter6370 [address] [facility] [id number] Hemoglobin Ql (U) Negative Normal Compreh ensive Internal Medicine; [facility] Work Phone: Comment on above: PATIENT NOT FASTINGP ERFORMED BY: AMIRA Zoltan Peter[address] [facility] [id number] Ketones Ql (U) Negative Normal Comprehens [facility]; [facility] Work Phone: Comment on above: PATIENT NOT FASTINGP ERFORMED BY: AMIRA Zoltan Peter[address] [facility] [id number] Leukocyte esterase Test strip Ql (U) Negative Normal [facility]; [facility] Work Phone: Comment on above: PATIENT NOT FASTINGP ERFORMED BY: AMIRA [facility] Kypnnm3120 [address] RoadDublin [place] [id number] Microscopic observation LM Nom (Urine sed) MICRON Normal [facility]; [facility] Work Phone: Comment on above: Microscopic follows if indicated. PATIENT NOT FASTINGP ERFORMED BY: AMIRA [facility] Myaybr0836 [address] RoadDublin [place] [id number] Microscopic observation LM Nom (Urine sed) See below: Normal [facility]; [facility] Work Phone: Comment on above: Microscopic was claudio cated and was performed. PATIENT NOT FASTINGP ERFORMED BY: CB [facility] Wobhuk8353 [address] RoadDublin [place] [id number] Nitrite Ql (U) Negative Normal Comprehens [facility]; [facility] Work Phone: Comment on above: PATIENT NOT FASTINGP ERFORMED BY: AMIRA [facility] Ydzoee8596 [address] RoadDublin [place] [id number] pH (U) 7.0 [pH] Normal 5.0-7.5 [facility]; [facility] Work Phone: Comment on above: PATIENT NOT FASTINGP ERFORMED BY: CB [facility] Yirktb6408 [address] RoadDublin [place] [id number] Protein Ql (U) Negative Normal Comprehens [facility]; [facility] Work Phone: Comment on above: PATIENT NOT FASTINGP ERFORMED BY: CB [facility] Ffiauf5226 [address] RoadDublin [place] [id number] Specific gravity (U) [Rel density] 1.012 1 Normal 1.005-1.03 0 [facility]; [facility] Work Phone: Comment on above: PATIENT NOT FASTINGP ERFORMED BY: CB [facility] Ozlklw2236 [address] RoadDublin [place] [id number] Urobilinogen (U) [Mass/Vol] 1.0 mg/dL Normal 0.0-1.9 [facility]; [facility] Work Phone: Comment on above: PATIENT NOT FASTINGP ERFORMED BY: CB [facility] Qoksii9010 [address] RoadDublin [place] [id number] T3, FREE (TRIDOTHYRONINE) (8 6105)Ordered By: Tree Specialist on 08-06-2013 Free T3 [Mass/Vol] 7.3 pg/mL Abnormal 2.0-4.4 [facility]; [facility] Work Phone: Comment on above: PATIENT NOT FASTINGP ERFORMED BY: RelateIQ[address] Bibablin [place] [id number] T4, FREE (THYROXINE) (68921) Ordered By: Tree Specialist on 08-06-2013 Free T4 [Mass/Vol] 1.12 ng/dL Normal 0.82-1.77 [facility]; [facility] Work Phone: Comment on above: PATIENT NOT FASTINGP ERFORMED BY: CleanMyCRM[address] TBT Groupblin [place] [id number] TSH (88583)Ordered By: CellControle m Seismograph Operator Helper on 08-06-2013 TSH Qn 0.594 {uIU/mL} Normal 0.450-4.50 0 [facility] Internal [facility]; [facility] Work Phone: Comment on above: PATIENT NOT FASTINGP ERFORMED BY: RelateIQ6370 [facility] [id number] Information: [id number] CALCIFIDIOL (16365) VIT D 25 Ordered By: Tree Specialist on 07-30-2013 25-hydroxyvitamin D [Mass/Vol] 40.7 ng/mL Normal 30.0-100.0 [facility]; [facility] Work Phone: Comment on above: Vitamin D deficiency has been defined by the [place] ofMedicine and an Endocrine Society practice guideline as alevel of serum 25-OH vitamin D less than 20 ng/mL (1,2).The Endocrine Society went on to further define vitamin Dinsufficiency as a level between 21 and 29 ng/mL (2).1. IOM ([place] of Medicine). 2010. Dietary reference intakes for calcium and D. [place]: The National Academies Press.2. Brice MF, Olu FRANCIS, Jennifer JIMENEZ, et al. Evaluation, treatment, and prevention of vitamin D deficiency: an Endocrine Society clinical practice guideline. JCEM. 2010; 96(7):1911-30. PATIENT WAS FASTINGP ERFORMED BY: AMIRA Zoltan Peter6370 [address] RoadDublin [place] [id number] LIPID PANEL (75319)Ordered B y: Tree Specialist on 07-30-2013 Cholesterol [Mass/Vol] 253 mg/dL Abnormal 100-199 [facility]; Comprehensive Internal Medicine Work Phone: Comment on above: PATIENT WAS FASTINGP ERFORMED BY: AMIRA LabCo Vmefzd0731 Allen RoadDublin [place] [id number] Cholesterol in HDL [Mass/Vol] 51 mg/dL Normal [facility]; [facility] Work Phone: Comment on above: According to ATP-III Guidelines, HDL-C >59 mg/dL is considered anegative risk factor for CHD. PATIENT WAS FASTINGP ERFORMED BY: AMIRA Zoltan Marielin6370 Allen RoadDublin [place] [id number] Cholesterol in LDL [Mass/Vol] 182 mg/dL Abnormal 0-99 [facility]; [facility] Work Phone: Comment on above: PATIENT WAS FASTINGP ERFORMED BY: AMIRA Marielin6[address] RoadDublin [place] [id number] Cholesterol in LDL/Cholesterol in HDL [Mass ratio] 3.6 {ratio_units} Abnormal 0.0-3.2 [facility]; [facility] Work Phone: Comment on above: PATIENT WAS FASTINGP ERFORMED BY: AMIRA LabIsabel Nxmhzt8439 Allen RoadDublin [place] [id number] Cholesterol in VLDL [Mass/Vol] 20 mg/dL Normal 5-40 [facility]; [facility] Work Phone: Comment on above: PATIENT WAS FASTINGP ERFORMED BY: AMIRA LabMatilde Nygmhi6[address] RoadDublin [place] [id number] Triglyceride [Mass/Vol] 98 mg/dL Normal 0-149 [facility]; [facility] Work Phone: Comment on above: PATIENT WAS FASTINGP ERFORMED BY: AMIRA [facility] Turyqv6924 [address] [facility] [id number] METABOLIC PANEL, COMPREHENSI VE (27330)Ordered By: Tree Specialist on 07-30-2013 Albumin [Mass/Vol] 4.2 g/dL Normal 3.5-5.5 [facility] Internal Medicine; [facility] Work Phone: Comment on above: PATIENT WAS FASTINGP ERFORMED BY: LabCo Zynwkp7911 [address] [facility] [id number] Information: [id number] Albumin/Globulin [Mass ratio] 1.8 {ratio} Normal 1.1-2.5 [facility]; [facility] Work Phone: Comment on above: PATIENT WAS FASTINGP ERFORMED BY: LabCo Coylpn2746 [address] [facility] [id number] Information: [id number] ALP [Catalytic activity/Vol] 83 U/L Normal 39-117 [facility]; [facility] Work Phone: Comment on above: PATIENT WAS FASTINGP ERFORMED BY: Lab[facility] Rytzgs8714 [address] [facility]in [place] [id number] Information: [id number] ALT [Catalytic activity/Vol] 23 U/L Normal 0-32 [facility]; [facility] Work Phone: Comment on above: PATIENT WAS FASTINGP ERFORMED BY: [facility] Vpeoum5797 [address] [facility] [id number] Information: [id number] AST [Catalytic activity/Vol] 21 U/L Normal 0-40 [facility]; [facility] Work Phone: Comment on above: PATIENT WAS FASTINGP ERFORMED BY: Lab[facility] Djaagn0641 [address] [facility] [id number] Information: [id number] Bilirubin [Mass/Vol] 0.4 mg/dL Normal 0.0-1.2 [facility]; [facility] Work Phone: Comment on above: PATIENT WAS FASTINGP ERFORMED BY: LabCo Igfggs0486 [facility] [id number] Information: [id number] Calcium [Mass/Vol] 9.3 mg/dL Normal 8.7-10.2 [facility] Internal Medicine; [facility] Work Phone: Comment on above: PATIENT WAS FASTINGP ERFORMED BY: LabCo Szaljo1684 [facility] [id number] Information: [id number] Chloride [Moles/Vol] 103 mmol/L Normal 97-108 [facility]; [facility] Work Phone: Comment on above: PATIENT WAS FASTINGP ERFORMED BY: LabCo Armjmp1162 [facility] [id number] Information: [id number] CO2 [Moles/Vol] 23 mmol/L Normal 19-28 [facility] Internal Medicine; [facility] Work Phone: Comment on above: Effective August 10, 2013, the reference interval for Carbon Dioxide, Total will be changing to: 0 - 30 days 15 - 27 31 d - 5 months 15 - 26 6 m - 11 months 15 - 25 1 - 12 years 17 - 27 > 12 years 18 - 29 PATIENT WAS FASTINGP ERFORMED BY: [facility]6370 [facility] [id number] Information: [id number] Creatinine [Mass/Vol] 0.78 mg/dL Normal 0.57-1.00 [facility]; [facility] Work Phone: Comment on above: PATIENT WAS FASTINGP ERFORMED BY: LabCo Mjjlwz8293 [facility] [id number] Information: [id number] GFR/1.73 sq M.predicted among blacks CKD-EPI (S/P/Bld) [Vol rate/Area] 108 mL/min/1.73 Normal [facility]; [facility] Work Phone: Comment on above: PATIENT WAS FASTINGP ERFORMED BY: [place] 8672970 [facility] [id number] Information: [id number] GFR/1.73 sq M.predicted among non-blacks CKD-EPI (S/P/Bld) [Vol rate/Area] 93 mL/min/1.73 Normal [facility]; [facility] Work Phone: Comment on above: PATIENT WAS FASTINGP ERFORMED BY: [address] [id number] Information: [id number] Globulin (S) [Mass/Vol] 2.3 g/dL Normal 1.5-4.5 [facility]; [facility] Work Phone: Comment on above: PATIENT WAS FASTINGP ERFORMED BY: [address] [id number] Information: [id number] Glucose [Mass/Vol] 94 mg/dL Normal 65-99 [facility] Internal Medicine; [facility] Work Phone: Comment on above: PATIENT WAS FASTINGP ERFORMED BY: [address] [id number] Information: [id number] Potassium [Moles/Vol] 4.5 mmol/L Normal 3.5-5.2 [facility]; [facility] Work Phone: Comment on above: PATIENT WAS FASTINGP ERFORMED BY: [address] [id number] Information: [id number] Protein [Mass/Vol] 6.5 g/dL Normal 6.0-8.5 [facility] Internal Medicine; [facility] Work Phone: Comment on above: PATIENT WAS FASTINGP ERFORMED BY: [place] [id number] [facility] [id number] Information: [id number] Sodium [Moles/Vol] 141 mmol/L Normal 134-144 Compre hensive Internal Medicine; [facility] Work Phone: Comment on above: PATIENT WAS FASTINGP ERFORMED BY: AMIRA [facility] Fyqnhz0718 [address] [facility] [id number] Information: [id number] Urea nitrogen [Mass/Vol] 13 mg/dL Normal 6-24 [facility]; [facility] Work Phone: Comment on above: PATIENT WAS FASTINGP ERFORMED BY: AMIRA [facility] Owhiqx3987 [address] [facility] [id number] Information: [id number] Urea nitrogen/Creatinine [Mass ratio] 17 mg/mg Normal 9-23 [facility]; [facility] Work Phone: Comment on above: PATIENT WAS FASTINGP ERFORMED BY: AMIRA [facility] Zlfafv8631 [facility] [id number] Information: [id number] CADE (ANTINUCLEAR ANTIBODY) ( 60913)Ordered By: Tree Specialist on 03-19-2013 Nuclear Ab Ql (S) Negative Normal Compreh ensive Internal Medicine; [facility] Work Phone: Comment on above: PATIENT NOT FASTINGP ERFORMED BY: AMIRA LabIsabel Pxsafc4527 [facility] [id number] BY: 2Q [employer] [place] [id number] [facility] [id number] BY: LabDeal In CityJeffrey [place] 393177 [facility] [id number] C-REACTIVE PROTEIN (03531)Or dered By: Tree Specialist on 03-19-2013 CRP [Mass/Vol] 1.9 mg/L Normal 0.0-4.9 Comprehens thomas Internal Medicine; [facility] Work Phone: Comment on above: PATIENT NOT FASTINGP ERFORMED BY: AMIRA [facility] Yjaewx8402 [facility] [id number] BY: 2 Authentidate HoldingCenterpoint Medical Center [place] [id number] [facility] [id number] BY: [employer] Eatskhkzpv4007 [facility] [id number] CCP ANTIBODY (06531)Ordered By: Tree Specialist on 03-19-2013 Cyclic citrullinated peptide IgA+IgG IA Qn 18 {units} Normal 0-19 [facility]; [facility] Work Phone: Comment on above: Negative <20 Weak po sitive 20 - 39 Moderate positive 40 - 59 Strong positive >59 PATIENT NOT FASTINGP ERFORMED BY: ID Quantique [facility] [id number] BY: WEbook [employer] Intake[address] [id number] BY: Scientific Intake[address] [id number] Lyme Disease Antibody W/ Ref kari (52294)Ordered By: Tree Specialist on 03-19-2013 Lyme Disease Antibody W/ Reflex (19058) <0.91 Normal 0.00-0.90 [facility]; [facility] Work Phone: Comment on above: Negative <0.91 Equiv ocal 0.91 - 1.09 Positive >1.09 Note: The CDC currently advises that Western blot testing be performed following all equivocal or positive EIA results. Final diagnosis should include appropriate clinical findings and a positive EIA which is also positive by Western blot. PATIENT NOT FASTINGP ERFORMED BY: [employer]70 [facility] [id number] BY: WEbook Jan [employer] [address] [id number] BY: [employer] Djadzwfmhd[address] [id number] Lyme Disease Antibody W/ Reflex (67696) Negative Normal [facility]; [facility] Work Phone: Comment on above: PATIENT NOT FASTINGP ERFORMED BY: [employer]70 [facility] [id number] BY: WEbook [employer] [id number] BY: [facility] [address] [id number] RHEUMATOID FACTOR-QUANT (864 31)Ordered By: Tree Specialist on 03-19-2013 Rheumatoid factor Qn 6.6 [IU]/mL Normal 0.0-13.9 [facility]; [facility] Work Phone: Comment on above: PATIENT NOT FASTINGP ERFORMED BY: AMIRA LabDeal In Cityrp Yoebcr2348 [address] TBT GroupAtrium Health Waxhaw [id number] BY: 2 Scientific IntakeNicole [place] [address] [facility] [id number] BY: Scientific Intake[address] [id number] SED RATE ERYTHROCYTE (92868) Ordered By: Tree Specialist on 03-19-2013 ESR (Bld) [Velocity] 2 mm/h Normal 0-32 [facility]; [facility] Work Phone: Comment on above: PATIENT NOT FASTINGP ERFORMED BY: AMIRA [facility] Ttdlyw2246 [address] [facility]Nov[facility] [id number] BY: 2Q Scientific IntakeNicole [place] 351080 [facility] [id number] BY: Scientific Intake[address] [id number] T4, FREE (THYROXINE) (69893) Ordered By: Tree Specialist on 03-13-2013 Free T4 [Mass/Vol] 0.76 ng/dL Abnormal 0.82-1.77 [facility]; [facility] Work Phone: Comment on above: PATIENT NOT FASTINGP ERFORMED BY: AMIRA Scientific Intakerp Fpudrs7823 [facility] [id number] Information: [id number] TSH (59475)Ordered By: Radha gil Seismograph Operator Helper on 03-13-2013 TSH Qn 2.000 {uIU/mL} Normal 0.450-4.50 0 [facility]; [facility] Work Phone: Comment on above: PATIENT NOT FASTINGP ERFORMED BY: AMIRA [facility] Ilyhos0690 [facility] [id number] T3, FREE (TRIDOTHYRONINE) (8 7728)Ordered By: Tree Specialist on 01-26-2013 Free T3 [Mass/Vol] 2.6 pg/mL Normal 2.0-4.4 [facility] Internal Medicine; [facility] Work Phone: Comment on above: PATIENT NOT FASTINGP ERFORMED BY: LabDeal In City Swmeei9244 [facility] [id number] T4, FREE (THYROXINE) (66487) Ordered By: Tree Specialist on 01-26-2013 Free T4 [Mass/Vol] 0.70 ng/dL Abnormal 0.82-1.77 [facility] Internal Medicine; [facility] Work Phone: Comment on above: PATIENT NOT FASTINGP ERFORMED BY: Scientific Intake Znkxmx3480 [facility] [id number] Information: [id number] TSH (83019)Ordered By: Syste m Seismograph Operator Helper on 01-26-2013 TSH Qn 0.275 {uIU/mL} Abnormal 0.450-4.50 0 [facility]; [facility] Work Phone: Comment on above: PATIENT NOT FASTINGP ERFORMED BY: LabDeal In City Mcwyhi9653 [facility] [id number] CALCIFIDIOL (50900) VIT D 25 Ordered By: Tree Specialist on 10-17-2012 25-hydroxyvitamin D [Mass/Vol] 41.1 ng/mL Normal 30.0-100.0 [facility] Internal Medicine; [facility] Work Phone: Comment on above: Vitamin D deficiency has been defined by the [place] ofMedicine and an Endocrine Society practice guideline as alevel of serum 25-OH vitamin D less than 20 ng/mL (1,2).The Endocrine Society went on to further define vitamin Dinsufficiency as a level between 21 and 29 ng/mL (2).1. IOM ([place] of Medicine). 2010. Dietary reference intakes for calcium and D. [place]: The National Academies Press.2. Brice MF, Olu FRANCIS, Jennifer JIMENEZ et al. Evaluation, treatment, and prevention of vitamin D deficiency: an Endocrine Society clinical practice guideline. JCEM. 2010; 96(7):1911-30. PATIENT NOT FASTINGP ERFORMED BY: LabCo Weepuj0177 [address] [facility] [place] [id number] T3, FREE (TRIDOTHYRONINE) (8 3119)Ordered By: Tree Specialist on 10-17-2012 Free T3 [Mass/Vol] 6.2 pg/mL Abnormal 2.0-4.4 [facility] Internal Medicine; [facility] Work Phone: Comment on above: PATIENT NOT FASTINGP ERFORMED BY: LabCo Kswidm0224 [address] [facility] [id number] T4, FREE (THYROXINE) (86846) Ordered By: Tree Specialist on 10-17-2012 Free T4 [Mass/Vol] 1.36 ng/dL Normal 0.82-1.77 [facility] Internal Medicine; [facility] Work Phone: Comment on above: PATIENT NOT FASTINGP ERFORMED BY: LabCenterpoint [facility] Center Pgucmq9513 [facility] [id number] Information: [id number] TSH (23919)Ordered By: Syste m Seismograph Operator Helper on 10-17-2012 TSH Qn 0.023 {uIU/mL} Abnormal 0.450-4.50 0 [facility]; [facility] Work Phone: Comment on above: PATIENT NOT FASTINGP ERFORMED BY: LabCo Jmkuzj1300 [facility] [id number] URINE GERONIMO CULTURE-IDENTIFICA [place] (14880)Ordered By: Tree Specialist on 09-12-2012 Bacteria identified Cx Nom (U) Final report Normal [facility]; [facility] Work Phone: Comment on above: PATIENT NOT FASTINGP ERFORMED BY: [facility] Iewili0616 [facility] [id number] Information: ADD [id number] Bacteria identified Cx Nom (U) MUG Normal [facility]; [facility] Work Phone: Comment on above: Mixed urogenital velvet ra10,000-25,000 colony forming units per mL PATIENT NOT FASTINGP ERFORMED BY: AMIRA [employer]70 SecureNetT[facility] [id number] Information: ADD [id number] Urinalysis, Office (02090)Or dered By: PETE Del Valle on 09-12-2012 Bilirubin Ql (U) Negative Normal Comprehe nsive Internal Medicine; [facility] Work Phone: Glucose Test strip (U) [Mass/Vol] Negative Normal [facility]; [facility] Work Phone: Hemoglobin Ql (U) Negative Normal Compreh ensive Internal Medicine; [facility] Work Phone: Ketones Ql (U) Negative Normal Comprehens thomas Internal Medicine; [facility] Work Phone: Leukocyte esterase Test strip Ql (U) Negative Normal [facility]; [facility] Work Phone: Nitrite Ql (U) Negative Normal Comprehens thomas Internal Medicine; [facility] Work Phone: pH (U) 7.0 [pH] Normal [facility]; [facility] Work Phone: Protein Ql (U) Negative Normal Comprehens thomas Internal Medicine; [facility] Work Phone: Specific gravity (U) [Rel density] 1.015 1 Normal [facility]; [facility] Work Phone: Urobilinogen (24H U) [Mass/Time] 2 mg/dL Normal [facility]; [facility] Work Phone: HEPATIC FUNCTION PANEL (8007 6)Ordered By: Tree Specialist on 09-04-2012 Albumin [Mass/Vol] 4.1 g/dL Normal 3.5-5.5 [facility]pre [facility]; [facility] Work Phone: Comment on above: PATIENT WAS FASTINGP ERFORMED BY: AMIRA RelateIQ6370 [address] TBT GroupAtrium Health W[facility]haw [id number] ALP [Catalytic activity/Vol] 80 U/L Normal 25-150 [facility]; [facility] Work Phone: Comment on above: Effective September 08, 2012 the reference interval for Alkaline Phosphatase, S will be changing to: Age Male Female 0 - 1 day 45 - 111 45 - 111 2 - 5 days 46 - 119 46 - 119 6 - 10 days 48 - 229 48 - 229 11 - 30 days 59 - 414 59 - 414 1 - 6 months 91 - 445 91 - 445 7 - 12 months 124 - 341 124 - 341 1 - 3 years 130 - 317 130 - 317 4 - 6 years 133 - 309 133 - 309 7 - 12 years 134 - 349 134 - 349 13 years 143 - 396 68 - 209 14 years 107 - 340 62 - 149 15 years 84 - 254 54 - 121 16 years 71 - 186 49 - 108 17 years 61 - 146 45 - 101 18 years 56 - 127 43 - 101 19 - 60 years 44 - 102 42 - 107 61 - 70 years 44 - 103 47 - 112 >70 years 44 - 105 45 - 108 PATIENT WAS FASTINGP ERFORMED BY: AMIRA [employer]70 [address] PizzaAtrium Health Waxhaw [id number] ALT [Catalytic activity/Vol] 16 U/L Normal 0-32 [facility]; [facility] Work Phone: Comment on above: PATIENT WAS FASTINGP ERFORMED BY: CleanMyCRM6370 [address] TBT GroupAtrium Health W[facility]haw [id number] AST [Catalytic activity/Vol] 14 U/L Normal 0-40 [facility]; [facility] Work Phone: Comment on above: PATIENT WAS FASTINGP ERFORMED BY: Etaoshi Lhjtys0295 [address] TBT GroupAtrium Health W[facility]haw [id number] Bilirubin [Mass/Vol] 0.3 mg/dL Normal 0.0-1.2 [facility]; [facility] Work Phone: Comment on above: PATIENT WAS FASTINGP ERFORMED BY: Etaoshi Vopgmx2593 [address] TBT GroupAtrium Health W[facility]haw [id number] Bilirubin.direct [Mass/Vol] 0.09 mg/dL Normal 0.00-0.40 [facility]; [facility] Work Phone: Comment on above: PATIENT WAS FASTINGP ERFORMED BY: AMIRA Peter6370 [facility] [id number] Protein [Mass/Vol] 6.8 g/dL Normal 6.0-8.5 [facility] Internal Medicine; [facility] Work Phone: Comment on above: PATIENT WAS FASTINGP ERFORMED BY: AMIRA Marielin6370 [facility] [id number] LIPID PANEL (76034)Ordered B y: Tree Specialist on 09-04-2012 Cholesterol [Mass/Vol] 226 mg/dL Abnormal 100-199 [facility]; [facility] Work Phone: Comment on above: PATIENT WAS FASTINGP ERFORMED BY: AMIRA Peter6370 [facility] [id number] Information: [id number] Cholesterol in HDL [Mass/Vol] 53 mg/dL Normal [facility]; [facility] Work Phone: Comment on above: According to ATP-III Guidelines, HDL-C >59 mg/dL is considered anegative risk factor for CHD. PATIENT WAS FASTINGP ERFORMED BY: AMIRA aMrielin6370 [facility] [id number] Information: [id number] Cholesterol in LDL [Mass/Vol] 143 mg/dL Abnormal 0-99 [facility]; [facility] Work Phone: Comment on above: PATIENT WAS FASTINGP ERFORMED BY: AMIRA Marielin6370 [facility] [id number] Information: [id number],[id number] Cholesterol in LDL/Cholesterol in HDL [Mass ratio] 2.7 {ratio_units} Normal 0.0-3.2 [facility]; [facility] Work Phone: Comment on above: PATIENT WAS FASTINGP ERFORMED BY: AMIRA Marielin6370 [facility] [id number] Information: [id number] Cholesterol in VLDL [Mass/Vol] 30 mg/dL Normal 5-40 [facility]; [facility] Work Phone: Comment on above: PATIENT WAS FASTINGP ERFORMED BY: AMIRA Rios Yybmlf8260 [address] Sommerbl[place] [id number] Information: [id number],[id number] Triglyceride [Mass/Vol] 152 mg/dL Abnormal 0-149 [facility]; [facility] Work Phone: Comment on above: PATIENT WAS FASTINGP ERFORMED BY: AMIRA [facility] Uzracy7317 [facility]in [place] [id number] Information: [id number] CALCIFIDIOL (36398) VIT D 25 Ordered By: Tree Specialist on 06-11-2012 25-hydroxyvitamin D [Mass/Vol] 32.2 ng/mL Normal 30.0-100.0 [facility]; [facility] Work Phone: Comment on above: Vitamin D deficiency has been defined by the [place] ofUniversity [facility]als Par[facility] Medical Centercine and an Endocrine Society practice guideline as alevel of serum 25-OH vitamin D less than 20 ng/mL (1,2).The Endocrine Society went on to further define vitamin Dinsufficiency as a level between 21 and 29 ng/mL (2).1. IOM ([place] of Medicine). 2010. Dietary reference intakes for calcium and D. [place]: The National Academies Press.2. Brice MF, Olu [place], Jennifer JIMENEZ, et al. Evaluation, treatment, and prevention of vitamin D deficiency: an Endocrine Society clinical practice guideline. JCEM. 2010; 96(7):1911-30. PATIENT WAS FASTINGP ERFORMED BY: [facility] Fkaouy4322 [address] [facility] [place] [id number] HEPATIC FUNCTION PANEL (8007 6)Ordered By: Tree Specialist on 06-11-2012 Albumin [Mass/Vol] 4.3 g/dL Normal 3.5-5.5 [facility] Internal Medicine; [facility] Work Phone: Comment on above: PATIENT WAS FASTINGP ERFORMED BY: AMIRA [facility] Kebeda1582 Allen RoadDublin [place] [id number] ALP [Catalytic activity/Vol] 92 U/L Normal 25-150 [facility]; [facility] Work Phone: Comment on above: PATIENT WAS FASTINGP ERFORMED BY: CB [facility] Zwohyw2969 Allen RoadDublin [place] [id number] ALT [Catalytic activity/Vol] 15 U/L Normal 0-32 [facility]; [facility] Work Phone: Comment on above: PATIENT WAS FASTINGP ERFORMED BY: CB [facility] Gtfdke1188 Allen RoadDublin [place] [id number] AST [Catalytic activity/Vol] 13 U/L Normal 0-40 [facility]; [facility] Work Phone: Comment on above: PATIENT WAS FASTINGP ERFORMED BY: CB [facility] Uwzhxs1801 Allen RoadDublin [place] [id number] Bilirubin [Mass/Vol] 0.3 mg/dL Normal 0.0-1.2 [facility]; [facility] Work Phone: Comment on above: PATIENT WAS FASTINGP ERFORMED BY: CB [facility] Fhqbgu8648 Allen RoadDublin [place] [id number] Bilirubin.direct [Mass/Vol] 0.08 mg/dL Normal 0.00-0.40 [facility]; [facility] Work Phone: Comment on above: PATIENT WAS FASTINGP ERFORMED BY: CB [facility] Ludwbt5903 Allen RoadDublin [place] [id number] Protein [Mass/Vol] 6.8 g/dL Normal 6.0-8.5 [facility] Internal Medicine; Comprehensive Internal Medicine Work Phone: Comment on above: PATIENT WAS FASTINGP ERFORMED BY: CB [facility] Llqvgy3469 Allen RoadDublin [place] [id number] LIPID PANEL ([id number])Ordered B y: Tree Specialist on 06-11-2012 Cholesterol [Mass/Vol] 269 mg/dL Abnormal 100-199 [facility]; [facility] Work Phone: Comment on above: PATIENT WAS FASTINGP ERFORMED BY: CB [facility] Ximcub3644 [address] RoadDublin [place] [id number] Cholesterol in HDL [Mass/Vol] 49 mg/dL Normal [facility]; [facility] Work Phone: Comment on above: According to ATP-III Guidelines, HDL-C >59 mg/dL is considered anegative risk factor for CHD. PATIENT WAS FASTINGP ERFORMED BY: AMIRA Peter6370 [facility] [id number] Cholesterol in LDL [Mass/Vol] 194 mg/dL Abnormal 0-99 [facility]; [facility] Work Phone: Comment on above: PATIENT WAS FASTINGP ERFORMED BY: [facility]6370 [facility] [id number] Cholesterol in LDL/Cholesterol in HDL [Mass ratio] 4.0 {ratio_units} Abnormal 0.0-3.2 [facility]; [facility] Work Phone: Comment on above: PATIENT WAS FASTINGP ERFORMED BY: [facility] Nrckyw8518 [facility] [id number] Cholesterol in VLDL [Mass/Vol] 26 mg/dL Normal 5-40 [facility]; [facility] Work Phone: Comment on above: PATIENT WAS FASTINGP ERFORMED BY: [facility] Zqgjco2231 [facility] [id number] Triglyceride [Mass/Vol] 129 mg/dL Normal 0-149 [facility]; [facility] Work Phone: Comment on above: PATIENT WAS FASTINGP ERFORMED BY: [facility]6370 [facility] [id number] TSH ([id number])Ordered By: CellControle m Seismograph Operator Helper on 06-11-2012 TSH Qn 3.730 {uIU/mL} Normal 0.450-4.50 0 [facility]; [facility] Work Phone: Comment on above: PATIENT WAS FASTINGP ERFORMED BY: [facility] Yagybw6694 [facility] [id number] Anti-TPO Antibody (23997)Ord ered By: Tree Specialist on 03-31-2012 TPO Ab Qn 120 [IU]/mL Abnormal 0-34 [facility]; [facility] Work Phone: Comment on above: PATIENT WAS FASTINGP ERFORMED BY: [facility] [place] [id number] CALCIFIDIOL (12434) VIT D 25 Ordered By: Tree Specialist on 03-31-2012 25-hydroxyvitamin D [Mass/Vol] 20.0 ng/mL Abnormal 30.0-100.0 [facility]; [facility] Work Phone: Comment on above: Vitamin D deficiency has been defined by the [place] ofMedicine and an Endocrine Society practice guideline as alevel of serum 25-OH vitamin D less than 20 ng/mL (1,2).The Endocrine Society went on to further define vitamin Dinsufficiency as a level between 21 and 29 ng/mL (2).1. IOM ([place] of Medicine). 2010. Dietary reference intakes for calcium and D. [place]: The National Academies Press.2. Brice MF, Olu FRANCIS, Jennifer JIMENEZ, et al. Evaluation, treatment, and prevention of vitamin D deficiency: an Endocrine Society clinical practice guideline. JCEM. 2010; 96(7):1911-30. PATIENT WAS FASTINGP ERFORMED BY: [facility]M6[address] PizzaAt[facility] [id number] CBC (Auto) ([id number])Ordered By : Tree Specialist on 03-31-2012 Erythrocyte distribution width (RBC) [Ratio] 13.8 % Normal 12.3-15.4 [facility]; [facility] Work Phone: Comment on above: PATIENT WAS FASTINGP ERFORMED BY: [facility]CRM6370 [address] PizzaAt[facility] [id number] Hematocrit (Bld) [Volume fraction] 42.0 % Normal 34.0-46.6 [facility]; [facility] Work Phone: Comment on above: PATIENT WAS FASTINGP ERFORMED BY: [facility]M[address] [facility] [id number] Hemoglobin (Bld) [Mass/Vol] 14.4 g/dL Normal 11.1-15.9 [facility]; [facility] Work Phone: Comment on above: PATIENT WAS FASTINGP ERFORMED BY: CB [facility] Vxxppp2984 [address] RoadDublin [place] [id number] MCH (RBC) [Entitic mass] 29.9 pg Normal 26.6-33.0 [facility]; [facility] Work Phone: Comment on above: PATIENT WAS FASTINGP ERFORMED BY: CB [facility] Gngslq9047 [address] RoadDublin [place] [id number] MCHC (RBC) [Mass/Vol] 34.3 g/dL Normal 31.5-35.7 [facility]; [facility] Work Phone: Comment on above: PATIENT WAS FASTINGP ERFORMED BY: CB [facility] Aerydg8738 [address] RoadDublin [place] [id number] MCV (RBC) [Entitic vol] 87 fL Normal 79-97 [facility]; [facility] Work Phone: Comment on above: PATIENT WAS FASTINGP ERFORMED BY: CB [facility] Fihhbv6626 [address] RoadDublin [place] [id number] Platelets (Bld) [#/Vol] 282 10*3/uL Normal 140-415 [facility]; [facility] Work Phone: Comment on above: PATIENT WAS FASTINGP ERFORMED BY: CB [facility] Vrqnaz1583 [address] RoadDublin [place] [id number] RBC (Bld) [#/Vol] 4.82 10*6/uL Normal 3.77-5.28 Compr ehensive Internal Medicine; [facility] Work Phone: Comment on above: PATIENT WAS FASTINGP ERFORMED BY: CB [facility] Qbldot[address]Dublin [place] [id number] WBC (Bld) [#/Vol] 7.2 10*3/uL Normal 4.0-10.5 [facility]; [facility] Work Phone: Comment on above: PATIENT WAS FASTINGP ERFORMED BY: CB [facility] Qgxxvr4131 [address] RoadDublin [place] [id number] Lipid Panel (17384)Ordered B y: Tree Specialist on 03-31-2012 Cholesterol [Mass/Vol] 256 mg/dL Abnormal 100-199 [facility]; [facility] Work Phone: Comment on above: PATIENT WAS FASTINGP ERFORMED BY: AMIRA Peter6370 [facility] [id number] Cholesterol in HDL [Mass/Vol] 50 mg/dL Normal [facility]; [facility] Work Phone: Comment on above: According to ATP-III Guidelines, HDL-C >59 mg/dL is considered anegative risk factor for CHD. PATIENT WAS FASTINGP ERFORMED BY: AMIRA [facility] Dtjijt6303 [facility] [id number] Cholesterol in LDL [Mass/Vol] 179 mg/dL Abnormal 0-99 [facility]; [facility] Work Phone: Comment on above: PATIENT WAS FASTINGP ERFORMED BY: AMIRA LabIsabel Txznyx7875 [facility] [id number] Cholesterol in LDL/Cholesterol in HDL [Mass ratio] 3.6 {ratio_units} Abnormal 0.0-3.2 [facility]; [facility] Work Phone: Comment on above: PATIENT WAS FASTINGP ERFORMED BY: AMIRA LabMatilde MarieUlrwxm3195 [facility] [id number] Cholesterol in VLDL [Mass/Vol] 27 mg/dL Normal 5-40 [facility]; [facility] Work Phone: Comment on above: PATIENT WAS FASTINGP ERFORMED BY: AMIRA LabIsabel Ixppxd3190 [facility] [id number] Triglyceride [Mass/Vol] 133 mg/dL Normal 0-149 [facility]; [facility] Work Phone: Comment on above: PATIENT WAS FASTINGP ERFORMED BY: AMIRA [facility] Sxvlmp9495 [facility] [id number] Metabolic Panel, Comprehensi ve (13130)Ordered By: Tree Specialist on 03-31-2012 Albumin [Mass/Vol] 4.2 g/dL Normal 3.5-5.5 Compre hensive Internal Medicine; [facility] Work Phone: Comment on above: PATIENT WAS FASTINGP ERFORMED BY: AMIRA [facility] Bnggli[address] [facility] [place] [id number] Information: [id number] Albumin/Globulin [Mass ratio] 1.6 {ratio} Normal 1.1-2.5 [facility]; [facility] Work Phone: Comment on above: PATIENT WAS FASTINGP ERFORMED BY: AMIRA [facility] Fouqks0763 [facility] [id number] Information: [id number] ALP [Catalytic activity/Vol] 85 U/L Normal 25-150 [facility]; [facility] Work Phone: Comment on above: PATIENT WAS FASTINGP ERFORMED BY: AMIRA ClaudineCo Sqjuvl9238 [facility] [id number] Information: [id number] ALT [Catalytic activity/Vol] 15 U/L Normal 0-32 [facility]; [facility] Work Phone: Comment on above: PATIENT WAS FASTINGP ERFORMED BY: LabCo Srknfv0384 [facility] [id number] Information: [id number] AST [Catalytic activity/Vol] 12 U/L Normal 0-40 [facility]; [facility] Work Phone: Comment on above: PATIENT WAS FASTINGP ERFORMED BY: Lab[facility] Fpronb1180 [facility] [id number] Information: [id number] Bilirubin [Mass/Vol] 0.5 mg/dL Normal 0.0-1.2 [facility]; [facility] Work Phone: Comment on above: PATIENT WAS FASTINGP ERFORMED BY: [facility] Iqaikr50[address] [facility] [id number] Information: [id number] Calcium [Mass/Vol] 9.2 mg/dL Normal 8.7-10.2 [facility] Internal Medicine; [facility] Work Phone: Comment on above: PATIENT WAS FASTINGP ERFORMED BY: CB [facility] Vprmze8930 [address] RoadDublin [place] [id number] Information: [id number] Chloride [Moles/Vol] 102 mmol/L Normal 97-108 [facility]; [facility] Work Phone: Comment on above: PATIENT WAS FASTINGP ERFORMED BY: CB [facility] Jiwlxo0382 [address] RoadDublin [place] [id number] Information: [id number] CO2 [Moles/Vol] 24 mmol/L Normal 20-32 [facility] Internal Medicine; [facility] Work Phone: Comment on above: PATIENT WAS FASTINGP ERFORMED BY: CB [facility] Uedyaw2522 [address] RoadAtrium Health Mercyin [place] [id number] Information: [id number] Creatinine [Mass/Vol] 0.73 mg/dL Normal 0.57-1.00 [facility]; [facility] Work Phone: Comment on above: PATIENT WAS FASTINGP ERFORMED BY: CB [facility] Jryybm7817 [address] RoadDublin [place] [id number] Information: [id number] GFR/1.73 sq M.predicted among blacks CKD-EPI (S/P/Bld) [Vol rate/Area] 117 mL/min/1.73 Normal [facility]; [facility] Work Phone: Comment on above: PATIENT WAS FASTINGP ERFORMED BY: CB [facility] Mojzqj5620 [address] RoadDuin [place] [id number] Information: [id number] GFR/1.73 sq M.predicted among non-blacks CKD-EPI (S/P/Bld) [Vol rate/Area] 102 mL/min/1.73 Normal [facility]; [facility] Work Phone: Comment on above: PATIENT WAS FASTINGP ERFORMED BY: CB [facility] Vpcdzi1227 [address] RoadDublin [place] [id number] Information: [id number] Globulin (S) [Mass/Vol] 2.6 g/dL Normal 1.5-4.5 [facility]; [facility] Work Phone: Comment on above: PATIENT WAS FASTINGP ERFORMED BY: AMIRA [facility] Aulelm3684 [facility] [id number] Information: [id number] Glucose [Mass/Vol] 89 mg/dL Normal 65-99 [facility] Internal Medicine; [facility] Work Phone: Comment on above: PATIENT WAS FASTINGP ERFORMED BY: AMIRA [place] [id number] [facility] [id number] Information: [id number] Potassium [Moles/Vol] 4.2 mmol/L Normal 3.5-5.2 [facility]; [facility] Work Phone: Comment on above: PATIENT WAS FASTINGP ERFORMED BY: AMIRA [place] [id number] [facility] [id number] Information: [id number] Protein [Mass/Vol] 6.8 g/dL Normal 6.0-8.5 [facility] Internal Medicine; [facility] Work Phone: Comment on above: PATIENT WAS FASTINGP ERFORMED BY: AMIRA [place] [id number] [facility] [id number] Information: [id number] Sodium [Moles/Vol] 138 mmol/L Normal 134-144 [facility] Internal Medicine; [facility] Work Phone: Comment on above: PATIENT WAS FASTINGP ERFORMED BY: AMIRA [facility]6370 [facility] [id number] Information: [id number] Urea nitrogen [Mass/Vol] 12 mg/dL Normal 6-24 [facility]; [facility] Work Phone: Comment on above: PATIENT WAS FASTINGP ERFORMED BY: LabAmanda Ville [id number] [facility] [id number] Information: [id number] Urea nitrogen/Creatinine [Mass ratio] 16 mg/mg Normal 9-23 [facility]; [facility] Work Phone: Comment on above: PATIENT WAS FASTINGP ERFORMED BY: AMIRA [facility] Lcccda1936 [facility] [id number] Information: [id number] T3, FREE (TRIDOTHYRONINE) (8 2420)Ordered By: Tree Specialist on 03-31-2012 Free T3 [Mass/Vol] 2.3 pg/mL Normal 2.0-4.4 [facility] Internal Medicine; [facility] Work Phone: Comment on above: PATIENT WAS FASTINGP ERFORMED BY: AMIRA [facility] Ogiwiy0092 [facility] [id number] T4, FREE (THYROXINE) ([id number]) Ordered By: Tree Specialist on 03-31-2012 Free T4 [Mass/Vol] 0.81 ng/dL Abnormal 0.82-1.77 [facility] Internal Medicine; [facility] Work Phone: Comment on above: PATIENT WAS FASTINGP ERFORMED BY: AMIRA [facility] Dtncrv2169 [facility] [id number] TSH ([id number])Ordered By: CellControle BMEYE Seismograph Operator Helper on 03-31-2012 TSH Qn 3.840 {uIU/mL} Normal 0.450-4.50 0 [facility]; [facility] Work Phone: Comment on above: abnormal tsh in past ; PATIENT WAS FASTINGPERFORMED BY: AMIRA [facility] Lzqcnv5532 [facility] [id number] Vital Signs Date Time Vital Sign Value Performing Clinician Facility 06-25-2023 08:01-0400 Body mass index (BMI) [Ratio] 37.18 kg/m2 Ngozi Llanes PA-C Work Phone: [facility] 06-25-2023 08:01-0400 Body weight 99.79 kg Ngozi Llanes PA-C Work Phone: [facility] 06-25-2023 08:01-0400 Diastolic blood pressure 92 mm[Hg] Ngozi Llanes PA-C Work Phone: [facility] 06-25-2023 08:01-0400 Heart rate 81 /min Ngozi Llanes PA-C Work Phone: [facility] 06-25-2023 08:01-0400 Systolic blood pressure 138 mm[Hg] Ngozi Llanes PA-C Work Phone: [facility] 04-20-2023 11:51-0500 Body height 165.1 cm LEVELER-C Kirstin Arcenio Work Phone: [facility] 04-20-2023 11:51-0500 Body mass index (BMI) [Ratio] 36.4 kg/m2 LEVELER-C Kirstin Arcenio Work Phone: [facility] 04-20-2023 11:51-0500 Body temperature 98.9 [degF] LEVELER-C Kirstin Arcenio Work Phone: [facility] 04-20-2023 11:51-0500 Body weight 99.45 kg LEVELER-C Kirstin Arcenio Work Phone: [facility] 04-20-2023 11:51-0500 Diastolic blood pressure 84 mm[Hg] LEVELER-C Kirstin Arcenio Work Phone: [facility] 04-20-2023 11:51-0500 Heart rate 82 /min LEVELER-C Kirstin Arcenio Work Phone: [facility] 04-20-2023 11:51-0500 Respiratory rate 15 /min LEVELER-C Kirstin Arcenio Work Phone: [facility] 04-20-2023 11:51-0500 SaO2% (BldA) [Mass fraction] 97 % LEVELER-C Kirstin Arcenio Work Phone: [facility] 04-20-2023 11:51-0500 Systolic blood pressure 142 mm[Hg] LEVELER-C Kirstin Arcenio Work Phone: [facility] 09-28-2022 08:28-0400 Body height 165.1 cm Ashtyn Slarb THRESHING DEPARTMENT SUPERVISOR [facility]; [facility] Work Phone: 09-28-2022 08:28-0400 Body mass index (BMI) [Ratio] 35.95 kg/m2 Ashtyn Slarb THRESHING DEPARTMENT SUPERVISOR [facility]; [facility] Work Phone: 09-28-2022 08:28-0400 Body surface area Derived from formula 2.04 m2 Ashtyn Slarb THRESHING DEPARTMENT SUPERVISOR [facility]; [facility] Work Phone: 09-28-2022 08:28-0400 Body temperature 97.6 [degF] Ashtyn Slarb THRESHING DEPARTMENT SUPERVISOR [facility]; [facility] Work Phone: Comment on above: Method: Temporal 09-28-2022 08:28-0400 Body weight 98.01 kg Ashtyn Slarb THRESHING DEPARTMENT SUPERVISOR [facility]; [facility] Work Phone: 09-28-2022 08:28-0400 Diastolic blood pressure 86 mm[Hg] Ashtyn Slarb THRESHING DEPARTMENT SUPERVISOR [facility]; [facility] Work Phone: Comment on above: Patient Position: Sitting; Cuff Location : Left Arm; Cuff Size: Standard 09-28-2022 08:28-0400 Heart rate 71 /min Ashtyn Slarb THRESHING DEPARTMENT SUPERVISOR [facility]; [facility] Work Phone: Comment on above: Pattern: Regular 09-28-2022 08:28-0400 Respiratory rate 16 /min Ashtyn Slarb THRESHING DEPARTMENT SUPERVISOR [facility]; [facility] Work Phone: Comment on above: Pattern: Unlabored 09-28-2022 08:28-0400 SaO2% (BldA) [Mass fraction] 97 % Ashtyn Slarb THRESHING DEPARTMENT SUPERVISOR [facility]; [facility] Work Phone: Comment on above: Room air 09-28-2022 08:28-0400 Systolic blood pressure 144 mm[Hg] Ashtyn Slarb THRESHING DEPARTMENT SUPERVISOR [facility]; [facility] Work Phone: Comment on above: Patient Position: Sitting; Cuff Location : Left Arm; Cuff Size: Standard 08-10-2022 09:48-0400 Body height 165.1 cm Ashtyn Slarb THRESHING DEPARTMENT SUPERVISOR [facility]; [facility] Work Phone: 08-10-2022 09:48-0400 Body mass index (BMI) [Ratio] 35.79 kg/m2 Ashtyn Slarb THRESHING DEPARTMENT SUPERVISOR [facility]; [facility] Work Phone: 08-10-2022 09:48-0400 Body surface area Derived from formula 2.04 m2 Ashtyn Slarb THRESHING DEPARTMENT SUPERVISOR [facility]; [facility] Work Phone: 08-10-2022 09:48-0400 Body temperature 97.8 [degF] Ashtyn Slarb THRESHING DEPARTMENT SUPERVISOR [facility]; [facility] Work Phone: Comment on above: Method: Temporal 08-10-2022 09:48-0400 Body weight 97.55 kg Ashtyn Slarb THRESHING DEPARTMENT SUPERVISOR [facility]; [facility] Work Phone: 08-10-2022 09:48-0400 Diastolic blood pressure 98 mm[Hg] Ashtyn Slarb THRESHING DEPARTMENT SUPERVISOR [facility]; [facility] Work Phone: Comment on above: Patient Position: Sitting; Cuff Location : Left Arm; Cuff Size: Standard 08-10-2022 09:48-0400 Heart rate 96 /min Ashtyn Slarb THRESHING DEPARTMENT SUPERVISOR [facility]; [facility] Work Phone: Comment on above: Pattern: Regular 08-10-2022 09:48-0400 Respiratory rate 17 /min Ashtyn Slarb THRESHING DEPARTMENT SUPERVISOR [facility]; [facility] Work Phone: Comment on above: Pattern: Unlabored 08-10-2022 09:48-0400 SaO2% (BldA) [Mass fraction] 99 % Ashtyn Slarb THRESHING DEPARTMENT SUPERVISOR [facility]; [facility] Work Phone: Comment on above: Room air 08-10-2022 09:48-0400 Systolic blood pressure 158 mm[Hg] Ashtyn Slarb THRESHING DEPARTMENT SUPERVISOR [facility]; [facility] Work Phone: Comment on above: Patient Position: Sitting; Cuff Location : Left Arm; Cuff Size: Standard 06-29-2022 10:35-0400 Body height 165.1 cm Ashtyn Slarb THRESHING DEPARTMENT SUPERVISOR [facility]; [facility] Work Phone: 06-29-2022 10:35-0400 Body mass index (BMI) [Ratio] 35.78 kg/m2 Ashtyn Slarb THRESHING DEPARTMENT SUPERVISOR [facility]; [facility] Work Phone: 06-29-2022 10:35-0400 Body surface area Derived from formula 2.04 m2 Ashtyn Slarb THRESHING DEPARTMENT SUPERVISOR [facility]; [facility] Work Phone: 06-29-2022 10:35-0400 Body temperature 98.7 [degF] Ashtyn Slarb THRESHING DEPARTMENT SUPERVISOR [facility]; [facility] Work Phone: Comment on above: Method: Temporal 06-29-2022 10:35-0400 Body weight 97.52 kg Ashtyn Slarb THRESHING DEPARTMENT SUPERVISOR [facility]; [facility] Work Phone: 06-29-2022 10:35-0400 Diastolic blood pressure 90 mm[Hg] Ashtyn Slarb THRESHING DEPARTMENT SUPERVISOR [facility]; [facility] Work Phone: Comment on above: Patient Position: Sitting; Cuff Location : Left Arm; Cuff Size: Standard 06-29-2022 10:35-0400 Heart rate 64 /min Ashtyn Slarb THRESHING DEPARTMENT SUPERVISOR [facility]; [facility] Work Phone: Comment on above: Pattern: Regular 06-29-2022 10:35-0400 Respiratory rate 16 /min Ashtyn Slarb THRESHING DEPARTMENT SUPERVISOR [facility]; [facility] Work Phone: Comment on above: Pattern: Unlabored 06-29-2022 10:35-0400 SaO2% (BldA) [Mass fraction] 99 % Ashtyn Slarb THRESHING DEPARTMENT SUPERVISOR [facility]; [facility] Work Phone: Comment on above: Room air 06-29-2022 10:35-0400 Systolic blood pressure 142 mm[Hg] Ashtyn Slarb THRESHING DEPARTMENT SUPERVISOR [facility]; [facility] Work Phone: Comment on above: Patient Position: Sitting; Cuff Location : Left Arm; Cuff Size: Standard 05-11-2022 09:38-0400 Body height 165.1 cm Ashtyn Slarb THRESHING DEPARTMENT SUPERVISOR [facility]; [facility] Work Phone: 05-11-2022 09:38-0400 Body mass index (BMI) [Ratio] 35.11 kg/m2 Ashtyn Slarb THRESHING DEPARTMENT SUPERVISOR [facility]; [facility] Work Phone: 05-11-2022 09:38-0400 Body surface area Derived from formula 2.02 m2 Ashtyn Slarb THRESHING DEPARTMENT SUPERVISOR [facility]; [facility] Work Phone: 05-11-2022 09:38-0400 Body temperature 97.1 [degF] Ashtyn Slarb THRESHING DEPARTMENT SUPERVISOR [facility]; [facility] Work Phone: Comment on above: Method: Temporal 05-11-2022 09:38-0400 Body weight 95.71 kg Ashtyn Slarb THRESHING DEPARTMENT SUPERVISOR [facility]; [facility] Work Phone: 05-11-2022 09:38-0400 Diastolic blood pressure 88 mm[Hg] Ashtyn Slarb THRESHING DEPARTMENT SUPERVISOR [facility]; [facility] Work Phone: Comment on above: Patient Position: Sitting; Cuff Location : Left Arm; Cuff Size: Standard 05-11-2022 09:38-0400 Heart rate 88 /min Ashtyn Slarb THRESHING DEPARTMENT SUPERVISOR [facility]; [facility] Work Phone: Comment on above: Pattern: Regular 05-11-2022 09:38-0400 Respiratory rate 17 /min Ashtyn Slarb THRESHING DEPARTMENT SUPERVISOR [facility]; [facility] Work Phone: Comment on above: Pattern: Unlabored 05-11-2022 09:38-0400 SaO2% (BldA) [Mass fraction] 99 % Ashtyn Slarb THRESHING DEPARTMENT SUPERVISOR [facility]; [facility] Work Phone: Comment on above: Room air 05-11-2022 09:38-0400 Systolic blood pressure 144 mm[Hg] Ashtyn Jp [facility]; [facility] Work Phone: Comment on above: Patient Position: Sitting; Cuff Location : Left Arm; Cuff Size: Standard 10-06-2021 09:36-0400 Body height 165.1 cm Howard Sorensen LPN [facility]; [facility] Work Phone: 10-06-2021 09:36-0400 Body mass index (BMI) [Ratio] 35.11 kg/m2 Howard Sorensen LPN [facility]; [facility] Work Phone: 10-06-2021 09:36-0400 Body surface area Derived from formula 2.02 m2 Howard Sorensen LPN [facility]; [facility] Work Phone: 10-06-2021 09:36-0400 Body temperature 98.8 [degF] Howard Sorensen LPN [facility]; [facility] Work Phone: Comment on above: Method: Infrared 10-06-2021 09:36-0400 Body weight 95.71 kg Howard Sorensen LPN [facility]; [facility] Work Phone: 10-06-2021 09:36-0400 Diastolic blood pressure 72 mm[Hg] Howard Sorensen LPN [facility]; [facility] Work Phone: Comment on above: Patient Position: Sitting; Cuff Location : Left Arm; Cuff Size: Standard 10-06-2021 09:36-0400 Heart rate 88 /min Howard Sorensen LPN [facility]; [facility] Work Phone: Comment on above: Pattern: Regular 10-06-2021 09:36-0400 Respiratory rate 16 /min Howard Sorensen LPN [facility]; [facility] Work Phone: Comment on above: Pattern: Unlabored 10-06-2021 09:36-0400 SaO2% (BldA) [Mass fraction] 99 % Howard Sorensen LPN [facility]; [facility] Work Phone: Comment on above: Room air 10-06-2021 09:36-0400 Systolic blood pressure 118 mm[Hg] Howard Sorensen LPN [facility]; [facility] Work Phone: Comment on above: Patient Position: Sitting; Cuff Location : Left Arm; Cuff Size: Standard 08-29-2021 13:55-0400 Body height 165.1 cm [facility]; [facility] Work Phone: 08-29-2021 13:55-0400 Body mass index (BMI) [Ratio] 34.86 kg/m2 [facility]; [facility] Work Phone: 08-29-2021 13:55-0400 Body surface area Derived from formula 2.02 m2 [facility]; [facility] Work Phone: 08-29-2021 13:55-0400 Body weight 95.03 kg [facility]; [facility] Work Phone: 08-29-2021 13:55-0400 Diastolic blood pressure 90 mm[Hg] [facility]; [facility] Work Phone: Comment on above: Patient Position: Sitting; Cuff Location : Left Arm; Cuff Size: Standard 08-29-2021 13:55-0400 Heart rate 76 /min [facility]; [facility] Work Phone: Comment on above: Pattern: Regular 08-29-2021 13:55-0400 Respiratory rate 16 /min [facility]; [facility] Work Phone: Comment on above: Pattern: Unlabored 08-29-2021 13:55-0400 SaO2% (BldA) [Mass fraction] 98 % [facility]; [facility] Work Phone: Comment on above: Room air 08-29-2021 13:55-0400 Systolic blood pressure 142 mm[Hg] [facility]; [facility] Work Phone: Comment on above: Patient Position: Sitting; Cuff Location : Left Arm; Cuff Size: Standard 06-02-2021 10:130400 Body height 165.1 cm Howard Sorensen LPN [facility]; [facility] Work Phone: 06-02-2021 10:13-0400 Body mass index (BMI) [Ratio] 34.15 kg/m2 Howard Sorensen LPN [facility]; [facility] Work Phone: 06-02-2021 10:13-0400 Body surface area Derived from formula 2 m2 Howard Sorensen LPN [facility]; [facility] Work Phone: 06-02-2021 10:130400 Body temperature 98 [degF] Howard Sorensen LPN [facility]; [facility] Work Phone: Comment on above: Method: Infrared 06-02-2021 10:130400 Body weight 93.08 kg Howard Sorensen LPN [facility]; [facility] Work Phone: 05-29-2021 16:55-0400 Body height 165.1 cm Sandee Osborne LPN [facility]; [facility] Work Phone: 05-29-2021 16:55-0400 Body mass index (BMI) [Ratio] 34.15 kg/m2 Sandee Osborne LPN [facility]; [facility] Work Phone: 05-29-2021 16:55-0400 Body surface area Derived from formula 2 m2 Sandee Osborne LPN [facility]; [facility] Work Phone: 05-29-2021 16:55-0400 Body temperature 97.1 [degF] Sandee Osborne LPN [facility]; [facility] Work Phone: 05-29-2021 16:55-0400 Body weight 93.08 kg Sandee Osborne LPN [facility]; [facility] Work Phone: 05-29-2021 16:55-0400 Diastolic blood pressure 98 mm[Hg] Sandee Osborne LPN [facility]; [facility] Work Phone: Comment on above: Patient Position: Sitting; Cuff Location : Left Arm; Cuff Size: Standard 05-29-2021 16:55-0400 Heart rate 73 /min Sandee Osborne [facility]; [facility] Work Phone: Comment on above: Pattern: Regular 05-29-2021 16:55-0400 Respiratory rate 16 /min Sandee Osborne [employer] [facility]; [facility] Work Phone: Comment on above: Pattern: Unlabored 05-29-2021 16:55-0400 SaO2% (BldA) [Mass fraction] 98 % Sandee Osborne [facility]; [facility] Work Phone: Comment on above: Room air 05-29-2021 16:55-0400 Systolic blood pressure 138 mm[Hg] Sandee Osborne [facility]; [facility] Work Phone: Comment on above: Patient Position: Sitting; Cuff Location : Left Arm; Cuff Size: Standard 03-06-2021 13:45-0500 Body height 165.1 cm Sandee Osborne [facility]; [facility] Work Phone: Comment on above: virtual, none reported 03-06-2021 13:45-0500 Body mass index (BMI) [Ratio] 34.15 kg/m2 Sandee Osborne [facility]; [facility] Work Phone: Comment on above: virtual, none reported 03-06-2021 13:45-0500 Body surface area Derived from formula 2 m2 Sandee Osborne [facility]; [facility] Work Phone: Comment on above: virtual, none reported 03-06-2021 13:45-0500 Body weight 93.08 kg Sandee Osborne [facility]; [facility] Work Phone: Comment on above: virtual, none reported 02-20-2021 09:47-0500 Body height 165.1 cm Radha Rousseau MA [facility]; [facility] Work Phone: 02-20-2021 09:47-0500 Body mass index (BMI) [Ratio] 34.15 kg/m2 Radha Rousseau MA [facility]; [facility] Work Phone: 02-20-2021 09:47-0500 Body surface area Derived from formula 2 m2 Radha Rousseau MA [facility]; [facility] Work Phone: 02-20-2021 09:47-0500 Body temperature 96.8 [degF] Radha Rousseau MA [facility]; [facility] Work Phone: Comment on above: Method: Infrared 02-20-2021 09:47-0500 Body weight 93.08 kg Radha Rousseau MA [facility]; [facility] Work Phone: 02-20-2021 09:47-0500 Diastolic blood pressure 85 mm[Hg] Radha Rousseau MA [facility]; [facility] Work Phone: Comment on above: Patient Position: Sitting; Cuff Location : Left Arm; Cuff Size: Standard 02-20-2021 09:47-0500 Heart rate 79 /min Radha Rousseau MA [facility]; [facility] Work Phone: Comment on above: Pattern: Regular 02-20-2021 09:47-0500 Respiratory rate 16 /min Radha Rousseau MA [facility]; [facility] Work Phone: Comment on above: Pattern: Unlabored 02-20-2021 09:47-0500 SaO2% (BldA) [Mass fraction] 98 % Radha Rousseau MA [facility]; [facility] Work Phone: Comment on above: Room air 02-20-2021 09:47-0500 Systolic blood pressure 132 mm[Hg] Radha Ruosseau MA [facility]; [facility] Work Phone: Comment on above: Patient Position: Sitting; Cuff Location : Left Arm; Cuff Size: Standard 01-06-2021 10:41-0500 Body height 165.1 cm Howard Sorensen LPN [facility]; [facility] Work Phone: 01-06-2021 10:41-0500 Body mass index (BMI) [Ratio] 33.48 kg/m2 Howard Sorensen LPN [facility]; [facility] Work Phone: 01-06-2021 10:41-0500 Body surface area Derived from formula 1.98 m2 Howard Sorensen LPN [facility]; [facility] Work Phone: 01-06-2021 10:41-0500 Body temperature 97.8 [degF] Howard Sorensen LPN [facility]; [facility] Work Phone: Comment on above: Method: Infrared 01-06-2021 10:41-0500 Body weight 91.26 kg Howard Sorensen LPN [facility]; [facility] Work Phone: 01-06-2021 10:41-0500 Diastolic blood pressure 80 mm[Hg] Howard Sorensen LPN [facility]; [facility] Work Phone: Comment on above: Patient Position: Sitting; Cuff Location : Left Arm; Cuff Size: Standard 01-06-2021 10:41-0500 Heart rate 82 /min Howard Sorensen LPN [facility]; [facility] Work Phone: Comment on above: Pattern: Regular 01-06-2021 10:41-0500 Respiratory rate 16 /min Howard Sorensen LPN [facility]; [facility] Work Phone: Comment on above: Pattern: Unlabored 01-06-2021 10:41-0500 SaO2% (BldA) [Mass fraction] 98 % Howard Sorensen LPN [facility]; [facility] Work Phone: Comment on above: Room air 01-06-2021 10:41-0500 Systolic blood pressure 148 mm[Hg] Howard Sorensen LPN [facility]; [facility] Work Phone: Comment on above: Patient Position: Sitting; Cuff Location : Left Arm; Cuff Size: Standard 12-26-2020 09:02-0400 Body height 165.1 cm Radha Rousseau MA [facility]; [facility] Work Phone: 12-26-2020 09:02-0400 Body mass index (BMI) [Ratio] 33.78 kg/m2 Radha Rousseau MA [facility]; [facility] Work Phone: 12-26-2020 09:020400 Body surface area Derived from formula 1.99 m2 Radha Rousseau MA [facility]; [facility] Work Phone: 12-26-2020 09:02-0400 Body temperature 96.6 [degF] Radha Rousseau MA [facility]; [facility] Work Phone: 12-26-2020 09:02040 Body weight 92.08 kg Radha Rousseau MA [facility]; [facility] Work Phone: 12-26-2020 09:02-0400 Diastolic blood pressure 81 mm[Hg] Radha Rousseau MA [facility]; [facility] Work Phone: Comment on above: Patient Position: Sitting; Cuff Location : Left Arm; Cuff Size: Standard 12-26-2020 09:02-0400 Heart rate 78 /min Radha Rousseau MA [facility]; [facility] Work Phone: Comment on above: Pattern: Regular 12-26-2020 09:02-0400 Respiratory rate 16 /min Radha Rousseau MA [facility]; [facility] Work Phone: Comment on above: Pattern: Unlabored 12-26-2020 09:02-0400 SaO2% (BldA) [Mass fraction] 98 % Radha Rousseau MA [facility]; [facility] Work Phone: Comment on above: Room air 12-26-2020 09:02-0400 Systolic blood pressure 130 mm[Hg] Radha Rousseau MA [facility]; [facility] Work Phone: Comment on above: Patient Position: Sitting; Cuff Location : Left Arm; Cuff Size: Standard 02-02-2015 14:49-0500 Body height 165.1 cm Ashtyn Trammell LPN [facility]; [facility] Work Phone: 02-02-2015 14:49-0500 Body mass index (BMI) [Ratio] 39.94 kg/m2 Ashtyn Trammell LPN [facility]; [facility] Work Phone: 02-02-2015 14:49-0500 Body surface area Derived from formula 2.14 m2 Ashtyn Trammell [employer] [facility]; [facility] Work Phone: 02-02-2015 14:49-0500 Body temperature 98.1 [degF] Ashtyn Trammell [employer] [facility]; [facility] Work Phone: 02-02-2015 14:49-0500 Body weight 108.86 kg Ashtyn Trammell [employer] [facility]; [facility] Work Phone: 02-02-2015 14:49-0500 Diastolic blood pressure 84 mm[Hg] Ashtyn Trammell [employer] [facility]; [facility] Work Phone: Comment on above: Patient Position: Sitting; Cuff Location : Left Arm; Cuff Size: Standard 02-02-2015 14:49-0500 Heart rate 110 /min Ashtyn Trammell [employer] [facility]; [facility] Work Phone: Comment on above: Pattern: Regular 02-02-2015 14:49-0500 Respiratory rate 17 /min Ashtyn Trammell LPN [facility]; [facility] Work Phone: Comment on above: Pattern: Unlabored 02-02-2015 14:49-0500 SaO2% (BldA) [Mass fraction] 98 % Ashtyn Trammell [employer] [facility]; [facility] Work Phone: Comment on above: Room air 02-02-2015 14:49-0500 Systolic blood pressure 124 mm[Hg] Ashtyn Trammell [employer] [facility]; [facility] Work Phone: Comment on above: Patient Position: Sitting; Cuff Location : Left Arm; Cuff Size: Standard 11-15-2014 11:21-0400 Body height 165.1 cm PETE Del Valle LPN [facility]; [facility] Work Phone: 11-15-2014 11:21-0400 Body mass index (BMI) [Ratio] 39.27 kg/m2 PETE Del Valle [employer] [facility]; [facility] Work Phone: 11-15-2014 11:21-0400 Body surface area Derived from formula 2.12 m2 PETE Del Valle COLE [facility]; [facility] Work Phone: 11-15-2014 11:21-0400 Body temperature 98.1 [degF] PETE Del Valle LPN [facility]; [facility] Work Phone: Comment on above: Method: Temporal 11-15-2014 11:210400 Body weight 107.05 kg PETE Del Valle COLE [facility]; [facility] Work Phone: 11-15-2014 11:21-0400 Diastolic blood pressure 84 mm[Hg] PETE Del Valle COLE [facility]; [facility] Work Phone: Comment on above: Patient Position: Sitting; Cuff Location : Left Arm; Cuff Size: Large 11-15-2014 11:21-0400 Heart rate 70 /min PETE Del Valle COLE [facility]; [facility] Work Phone: Comment on above: Pattern: Regular 11-15-2014 11:21-0400 Respiratory rate 18 /min PETE Del Valle LPN [facility]; [facility] Work Phone: Comment on above: Pattern: Unlabored 11-15-2014 11:21-0400 SaO2% (BldA) [Mass fraction] 99 % PETE Del Valle COLE [facility]; [facility] Work Phone: Comment on above: Room air 11-15-2014 11:21-0400 Systolic blood pressure 124 mm[Hg] PETE Eligio GALVAN [facility]; [facility] Work Phone: Comment on above: Patient Position: Sitting; Cuff Location : Left Arm; Cuff Size: Large 09-08-2014 13:34-0400 Body height 165.1 cm Veda Cast RN [facility]; [facility] Work Phone: 09-08-2014 13:34-0400 Body mass index (BMI) [Ratio] 38.96 kg/m2 Veda Cast RN [facility]; [facility] Work Phone: 09-08-2014 13:34-0400 Body surface area Derived from formula 2.12 m2 Veda Cast RN [facility]; [facility] Work Phone: 09-08-2014 13:34-0400 Body weight 106.2 kg Veda Cast RN [facility]; [facility] Work Phone: 09-08-2014 13:34-0400 Diastolic blood pressure 70 mm[Hg] Veda Cast RN [facility]; [facility] Work Phone: Comment on above: Patient Position: Sitting; Cuff Location : Left Arm; Cuff Size: Large 09-08-2014 13:34-0400 Heart rate 90 /min Veda Cast RN [facility]; [facility] Work Phone: Comment on above: Pattern: Regular 09-08-2014 13:34-0400 Respiratory rate 18 /min Veda Cast RN [facility]; [facility] Work Phone: Comment on above: Pattern: Unlabored 09-08-2014 13:34-0400 SaO2% (BldA) [Mass fraction] 97 % Veda Cast RN [facility]; [facility] Work Phone: Comment on above: Room air 09-08-2014 13:34-0400 Systolic blood pressure 118 mm[Hg] Veda Cast RN [facility]; [facility] Work Phone: Comment on above: Patient Position: Sitting; Cuff Location : Left Arm; Cuff Size: Large 09-03-2014 12:07-0400 Body height 165.1 cm Shraddha Leydi DO Work Phone: [facility]; [facility] Work Phone: 09-03-2014 12:07-0400 Body mass index (BMI) [Ratio] 37.98 kg/m2 Shraddha Leydi DO Work Phone: [facility]; [facility] Work Phone: 09-03-2014 12:07-0400 Body surface area Derived from formula 2.09 m2 Shraddha Leydi DO Work Phone: [facility]; [facility] Work Phone: 09-03-2014 12:07-0400 Body temperature 97.8 [degF] Shraddha Holley DO Work Phone: [facility]; [facility] Work Phone: Comment on above: Method: Oral 09-03-2014 12:07-0400 Body weight 103.53 kg Shraddha Holley DO Work Phone: [facility]; [facility] Work Phone: 09-03-2014 12:07-0400 Diastolic blood pressure 88 mm[Hg] Shraddha Holley DO Work Phone: [facility]; [facility] Work Phone: Comment on above: Patient Position: Sitting; Cuff Location : Left Arm; Cuff Size: Large 09-03-2014 12:070400 Heart rate 85 /min Shraddha Holley DO Work Phone: [facility]; [facility] Work Phone: Comment on above: Pattern: Regular 09-03-2014 12:07-0400 Respiratory rate 18 /min Shraddha Holley DO Work Phone: [facility]; [facility] Work Phone: Comment on above: Pattern: Unlabored 09-03-2014 12:07-0400 SaO2% (BldA) [Mass fraction] 98 % Shraddha Holley DO Work Phone: [facility]; [facility] Work Phone: Comment on above: Room air 09-03-2014 12:07-0400 Systolic blood pressure 138 mm[Hg] Shraddha Holley DO Work Phone: [facility]; [facility] Work Phone: Comment on above: Patient Position: Sitting; Cuff Location : Left Arm; Cuff Size: Large 08-16-2014 11:17-0400 Body height 165.1 cm PETE Del Valle LPN [facility]; [facility] Work Phone: 08-16-2014 11:17-0400 Body mass index (BMI) [Ratio] 38.61 kg/m2 PETE Del Valle LPN [facility]; [facility] Work Phone: 08-16-2014 11:17-0400 Body surface area Derived from formula 2.11 m2 PETE Del Valle COLE [facility]; [facility] Work Phone: 08-16-2014 11:17-0400 Body temperature 98.7 [degF] PETE Del Valle CO[facility]; [facility] Work Phone: Comment on above: Method: Temporal 08-16-2014 11:17-0400 Body weight 105.24 kg PETE Del Valle COLE [facility]; [facility] Work Phone: 08-16-2014 11:17-0400 Diastolic blood pressure 80 mm[Hg] PETE Del Valle COLE [facility]; [facility] Work Phone: Comment on above: Patient Position: Sitting; Cuff Location : Left Arm; Cuff Size: Large 08-16-2014 11:17-0400 Heart rate 68 /min PETE Eligio GALVAN [facility]; [facility] Work Phone: Comment on above: Pattern: Regular 08-16-2014 11:17-0400 Respiratory rate 18 /min PETE Del Valle [facility]; [facility] Work Phone: Comment on above: Pattern: Unlabored 08-16-2014 11:17-0400 SaO2% (BldA) [Mass fraction] 97 % PETE Del Valle LPN [facility]; [facility] Work Phone: Comment on above: Room air 08-16-2014 11:17-0400 Systolic blood pressure 124 mm[Hg] PETE Eligio GALVAN [facility]; [facility] Work Phone: Comment on above: Patient Position: Sitting; Cuff Location : Left Arm; Cuff Size: Large 06-21-2014 14:07-0400 Body height 165.1 cm Veda Cast RN [facility]; [facility] Work Phone: 06-21-2014 14:07-0400 Body mass index (BMI) [Ratio] 39.44 kg/m2 Veda Cast RN [facility]; [facility] Work Phone: 06-21-2014 14:07-0400 Body surface area Derived from formula 2.13 m2 Veda Cast RN [facility]; [facility] Work Phone: 06-21-2014 14:07-0400 Body weight 107.5 kg Veda Cast RN [facility]; [facility] Work Phone: 06-21-2014 14:07-0400 Diastolic blood pressure 82 mm[Hg] Veda Cast RN [facility]; [facility] Work Phone: Comment on above: Patient Position: Sitting; Cuff Location : Left Arm; Cuff Size: Large 06-21-2014 14:07-0400 Heart rate 86 /min Veda Cast RN [facility]; [facility] Work Phone: Comment on above: Pattern: Regular 06-21-2014 14:07-0400 Respiratory rate 18 /min Veda Cast RN [facility]; [facility] Work Phone: Comment on above: Pattern: Unlabored 06-21-2014 14:07-0400 SaO2% (BldA) [Mass fraction] 98 % Veda Cast RN [facility]; [facility] Work Phone: Comment on above: Room air 06-21-2014 14:07-0400 Systolic blood pressure 128 mm[Hg] Veda Cast RN [facility]; [facility] Work Phone: Comment on above: Patient Position: Sitting; Cuff Location : Left Arm; Cuff Size: Large 05-17-2014 10:48-0400 Body height 165.1 cm PETE Del Valle LPN [facility]; [facility] Work Phone: 05-17-2014 10:48-0400 Body mass index (BMI) [Ratio] 39.11 kg/m2 PETE Del Valle LPN [facility]; [facility] Work Phone: 05-17-2014 10:48-0400 Body surface area Derived from formula 2.12 m2 PETE Del Valle LPN [facility]; [facility] Work Phone: 05-17-2014 10:48-0400 Body temperature 97.6 [degF] PETE Del Valle COLE [facility]; [facility] Work Phone: Comment on above: Method: Temporal 05-17-2014 10:48-0400 Body weight 106.6 kg PETE Del Valle COLE [facility]; [facility] Work Phone: 05-17-2014 10:48-0400 Diastolic blood pressure 72 mm[Hg] PETE Del Valle [employer]MENT SUPERVISOR [facility]; [facility] Work Phone: Comment on above: Patient Position: Sitting; Cuff Location : Left Arm; Cuff Size: Large 05-17-2014 10:48-0400 Heart rate 80 /min PETE Del Valle COLE [facility]; [facility] Work Phone: Comment on above: Pattern: Regular 05-17-2014 10:48-0400 Respiratory rate 20 /min PETE Del Valle COLE [facility]; [facility] Work Phone: Comment on above: Pattern: Unlabored 05-17-2014 10:48-0400 SaO2% (BldA) [Mass fraction] 98 % PETE Del Valle [employer] SUPERVIS[employer] [facility]; [facility] Work Phone: Comment on above: Room air 05-17-2014 10:48-0400 Systolic blood pressure 118 mm[Hg] PETE Del Valle [employer]MENT SUPERVISOR [facility]; [facility] Work Phone: Comment on above: Patient Position: Sitting; Cuff Location : Left Arm; Cuff Size: Large 04-20-2014 11:130500 Body height [facility] Work Phone: 04-20-2014 11:13-0500 Body mass index (BMI) [Ratio] 37.11 kg/m2 Cari [facility]; [facility] Work Phone: 04-20-2014 11:13-0500 Body surface area Derived from formula 2.07 m2 Cari [facility]; [facility] Work Phone: 04-20-2014 11:13-0500 Body temperature 98.8 [degF] Cari Ochoa [facility]; [facility] Work Phone: Comment on above: Method: Oral 04-20-2014 11:13-0500 Body weight 101.15 kg Cari Ochoa [facility]; [facility] Work Phone: 04-20-2014 11:13-0500 Diastolic blood pressure 70 mm[Hg] Cari Ochoa [facility]; [facility] Work Phone: Comment on above: Patient Position: Sitting; Cuff Location : Left Arm; Cuff Size: Standard 04-20-2014 11:13-0500 Heart rate 81 /min Cari Baileypiyuhsjeffery [facility]; [facility] Work Phone: Comment on above: Pattern: Regular 04-20-2014 11:13-0500 Respiratory rate 16 /min Cari Manaddi [facility]; [facility] Work Phone: Comment on above: Pattern: Unlabored 04-20-2014 11:13-0500 SaO2% (BldA) [Mass fraction] 98 % Cari Ochoa [facility]; [facility] Work Phone: Comment on above: Room air 04-20-2014 11:13-0500 Systolic blood pressure 115 mm[Hg] Cari Ochoa [facility]; [facility] Work Phone: Comment on above: Patient Position: Sitting; Cuff Location : Left Arm; Cuff Size: Standard 10-06-2013 09:230400 Body height 165.1 cm Hetal Anderson RN [facility]; [facility] Work Phone: 10-06-2013 09:040 Body mass index (BMI) [Ratio] 37.11 kg/m2 Hetal Anderson RN [facility]; [facility] Work Phone: 10-06-2013 09:23040 Body surface area Derived from formula 2.07 m2 Hetal [facility]; [facility] Work Phone: 10-06-2013 09:23-0400 Body weight 101.15 kg Hetal Anderson RN [facility]; [facility] Work Phone: 09-14-2013 14:55-0400 Body height 165.1 cm Anca Villatoro CNP Work Phone: [facility]; [facility] Work Phone: 09-14-2013 14:55-0400 Body mass index (BMI) [Ratio] 37.11 kg/m2 Anca Villatoro CNP Work Phone: [facility]; [facility] Work Phone: 09-14-2013 14:55-0400 Body surface area Derived from formula 2.07 m2 Anca Villatoro CNP Work Phone: [facility]; [facility] Work Phone: 09-14-2013 14:55-0400 Body temperature 99 [degF] Anca Villatoro CNP Work Phone: [facility]; [facility] Work Phone: Comment on above: Method: Oral 09-14-2013 14:55-0400 Body weight 101.15 kg Anca Villatoro CNP Work Phone: [facility]; [facility] Work Phone: 09-14-2013 14:55-0400 Diastolic blood pressure 80 mm[Hg] Anca Villatoro CNP Work Phone: [facility]; [facility] Work Phone: Comment on above: Patient Position: Sitting; Cuff Location : Left Arm; Cuff Size: Standard 09-14-2013 14:55-0400 Heart rate 82 /min Anca Villatoro CNP Work Phone: [facility]; [facility] Work Phone: Comment on above: Pattern: Regular 09-14-2013 14:55-0400 SaO2% (BldA) [Mass fraction] 98 % Anca Villatoro CNP Work Phone: [facility]; [facility] Work Phone: Comment on above: Room air 09-14-2013 14:55-0400 Systolic blood pressure 130 mm[Hg] Anca Villatoro CNP Work Phone: [facility]; [facility] Work Phone: Comment on above: Patient Position: Sitting; Cuff Location : Left Arm; Cuff Size: Standard 08-06-2013 09:37-0400 Body height 165.1 cm PETE Del Valle LPN [facility]; [facility] Work Phone: 08-06-2013 09:37-0400 Body mass index (BMI) [Ratio] 37.11 kg/m2 PETE Del Valle LPN [facility]; [facility] Work Phone: 08-06-2013 09:37-0400 Body surface area Derived from formula 2.07 m2 PETE Del Valle LPN [facility]; [facility] Work Phone: 08-06-2013 09:37-0400 Body temperature 98.2 [degF] PETE Del Valle LPN [facility]; [facility] Work Phone: Comment on above: Method: Oral 08-06-2013 09:37-0400 Body weight 101.15 kg PETE Del Valle LPN [facility]; [facility] Work Phone: 08-06-2013 09:37-0400 Diastolic blood pressure 90 mm[Hg] PETE Del Valle LPN [facility]; [facility] Work Phone: Comment on above: Patient Position: Sitting; Cuff Location : Left Arm; Cuff Size: Large 08-06-2013 09:37-0400 Heart rate 74 /min PETE Del Valle LPN [facility]; [facility] Work Phone: Comment on above: Pattern: Regular 08-06-2013 09:37-0400 Respiratory rate 20 /min PETE Del Valle LPN [facility]; [facility] Work Phone: Comment on above: Pattern: Unlabored 08-06-2013 09:37-0400 Systolic blood pressure 124 mm[Hg] PETE Del Valle LPN [facility]; [facility] Work Phone: Comment on above: Patient Position: Sitting; Cuff Location : Left Arm; Cuff Size: Large 04-28-2013 11:53-0500 Body height 165.1 cm Hetal Anderson RN [facility]; [facility] Work Phone: 04-28-2013 11:53-0500 Body mass index (BMI) [Ratio] 36.78 kg/m2 Hetal Anderson RN [facility]; [facility] Work Phone: 04-28-2013 11:53-0500 Body surface area Derived from formula 2.06 m2 Hetal Anderson RN [facility]; [facility] Work Phone: 04-28-2013 11:53-0500 Body temperature 97.7 [degF] Hetal Anderson RN [facility]; [facility] Work Phone: Comment on above: Method: Temporal 04-28-2013 11:53-0500 Body weight 100.25 kg Hetal Anderson RN [facility]; [facility] Work Phone: 04-28-2013 11:53-0500 Diastolic blood pressure 76 mm[Hg] Hetal Anderson RN [facility]; [facility] Work Phone: Comment on above: Patient Position: Sitting; Cuff Location : Left Arm; Cuff Size: Standard 04-28-2013 11:53-0500 Heart rate 70 /min Hetal Anderson RN [facility]; [facility] Work Phone: Comment on above: Pattern: Regular 04-28-2013 11:53-0500 Respiratory rate 16 /min Hetal Anderson RN [facility]; [facility] Work Phone: Comment on above: Pattern: Unlabored 04-28-2013 11:53-0500 SaO2% (BldA) [Mass fraction] 99 % Hetal Anderson RN [facility]; [facility] Work Phone: Comment on above: Room air 04-28-2013 11:53-0500 Systolic blood pressure 124 mm[Hg] Hetal [facility]; [facility] Work Phone: Comment on above: Patient Position: Sitting; Cuff Location : Left Arm; Cuff Size: Standard 04-17-2013 13:41-0500 Body height 165.1 cm Anca Villatoro CNP Work Phone: [facility]; [facility] Work Phone: 04-17-2013 13:41-0500 Body mass index (BMI) [Ratio] 36.78 kg/m2 Anca Villatoro CNP Work Phone: [facility]; [facility] Work Phone: 04-17-2013 13:41-0500 Body surface area Derived from formula 2.06 m2 Anca Villatoro CNP Work Phone: [facility]; [facility] Work Phone: 04-17-2013 13:41-0500 Body temperature 98.9 [degF] Anca Villatoro CNP Work Phone: [facility]; [facility] Work Phone: Comment on above: Method: Oral 04-17-2013 13:41-0500 Body weight 100.25 kg Anca Villatoro CNP Work Phone: [facility]; [facility] Work Phone: 04-17-2013 13:41-0500 Diastolic blood pressure 82 mm[Hg] Anca Villatoro CNP Work Phone: [facility]; [facility] Work Phone: Comment on above: Patient Position: Sitting; Cuff Location : Left Arm; Cuff Size: Standard 04-17-2013 13:41-0500 Heart rate 94 /min Anca Villatoro CNP Work Phone: [facility]; [facility] Work Phone: Comment on above: Pattern: Regular 04-17-2013 13:41-0500 Respiratory rate 20 /min Anca Villatoro CNP Work Phone: [facility]; [facility] Work Phone: 04-17-2013 13:41-0500 SaO2% (BldA) [Mass fraction] 99 % Anca Ciesa SENIOR ENVIRONMENTAL TECHNICIAN Work Phone: [facility]; [facility] Work Phone: Comment on above: Room air 04-17-2013 13:41-0500 Systolic blood pressure 134 mm[Hg] Anca Villatoro SENIOR ENVIRONMENTAL TECHNICIAN Work Phone: [facility]; [facility] Work Phone: Comment on above: Patient Position: Sitting; Cuff Location : Left Arm; Cuff Size: Standard 03-19-2013 08:03-0500 Body height 165.1 cm PETE Del Valle LPN [facility]; [facility] Work Phone: 03-19-2013 08:03-0500 Body mass index (BMI) [Ratio] 36.78 kg/m2 PETE Del Valle LPN [facility]; [facility] Work Phone: 03-19-2013 08:03-0500 Body surface area Derived from formula 2.06 m2 PETE Del Valle LPN [facility]; [facility] Work Phone: 03-19-2013 08:03-0500 Body temperature 98.5 [degF] PETE Del Valle LPN [facility]; [facility] Work Phone: Comment on above: Method: Oral 03-19-2013 08:03-0500 Body weight 100.25 kg PETE Del Valle LPN [facility]; [facility] Work Phone: 03-19-2013 08:03-0500 Diastolic blood pressure 80 mm[Hg] PETE Del Valle LPN [facility]; [facility] Work Phone: Comment on above: Patient Position: Sitting; Cuff Location : Left Arm; Cuff Size: Large 03-19-2013 08:03-0500 Heart rate 70 /min PETE Del Valle LPN [facility]; [facility] Work Phone: Comment on above: Pattern: Regular 03-19-2013 08:03-0500 Respiratory rate 18 /min PETE Del Valle LPN [facility]; [facility] Work Phone: Comment on above: Pattern: Unlabored 03-19-2013 08:03-0500 Systolic blood pressure 122 mm[Hg] PETE Del Valle [employer]MENT SUPERVISOR [facility]; [facility] Work Phone: Comment on above: Patient Position: Sitting; Cuff Location : Left Arm; Cuff Size: Large 02-27-2013 07:11-0500 Body height 165.1 cm PETE Del Valle LPN [facility]; [facility] Work Phone: 02-27-2013 07:11-0500 Body mass index (BMI) [Ratio] 36.44 kg/m2 PETE Del Valle COLE [facility]; [facility] Work Phone: 02-27-2013 07:11-0500 Body surface area Derived from formula 2.06 m2 PETE Del Valle COLE [facility]; [facility] Work Phone: 02-27-2013 07:11-0500 Body temperature 98 [degF] PETE Del Valle COLE [facility]; [facility] Work Phone: Comment on above: Method: Oral 02-27-2013 07:110500 Body weight 99.34 kg PETE Del Valle COLE [facility]; [facility] Work Phone: 02-27-2013 07:11-0500 Diastolic blood pressure 80 mm[Hg] PETE Del Valle [employer] DEPARTMENT SUPERVISOR [facility]; [facility] Work Phone: Comment on above: Patient Position: Sitting; Cuff Location : Left Arm; Cuff Size: Standard 02-27-2013 07:11-0500 Heart rate 70 /min PETE Del Valle COLE [facility]; [facility] Work Phone: Comment on above: Pattern: Regular 02-27-2013 07:11-0500 Respiratory rate 18 /min PETE Del Valle LPN [facility]; [facility] Work Phone: Comment on above: Pattern: Unlabored 02-27-2013 07:11-0500 Systolic blood pressure 120 mm[Hg] PETE Del Valle [employer] DEPARTMENT SUPERVISOR [facility]; [facility] Work Phone: Comment on above: Patient Position: Sitting; Cuff Location : Left Arm; Cuff Size: Standard 01-26-2013 08:23-0500 Body height 165.1 cm PETE Del Valle COLE [facility]; [facility] Work Phone: 01-26-2013 08:23-0500 Body mass index (BMI) [Ratio] 36.11 kg/m2 PETE Del Valle COLE [facility]; [facility] Work Phone: 01-26-2013 08:23-0500 Body surface area Derived from formula 2.05 m2 PETE Del Valle LPN [facility]; [facility] Work Phone: 01-26-2013 08:23-0500 Body temperature 97.8 [degF] PETE Del Valle COLE [facility]; [facility] Work Phone: Comment on above: Method: Oral 01-26-2013 08:23-0500 Body weight 98.43 kg PETE Eligio GALVAN [facility]; [facility] Work Phone: 01-26-2013 08:23-0500 Diastolic blood pressure 80 mm[Hg] PETE Del Valle LPN [facility]; [facility] Work Phone: Comment on above: Patient Position: Sitting; Cuff Location : Left Arm; Cuff Size: Large 01-26-2013 08:23-0500 Heart rate 74 /min PETE Eligio GALVAN [facility]; [facility] Work Phone: Comment on above: Pattern: Regular 01-26-2013 08:23-0500 Respiratory rate 20 /min PETE Del Valle LPN [facility]; [facility] Work Phone: Comment on above: Pattern: Unlabored 01-26-2013 08:23-0500 Systolic blood pressure 122 mm[Hg] PETE Del Valle COLE [facility]; [facility] Work Phone: Comment on above: Patient Position: Sitting; Cuff Location : Left Arm; Cuff Size: Large 10-24-2012 09:45-0400 Body height 165.1 cm PETE Eligio GALVAN [facility]; [facility] Work Phone: 10-24-2012 09:45-0400 Body mass index (BMI) [Ratio] 35.78 kg/m2 PETEBORIS Del Valle LPN [facility]; [facility] Work Phone: 10-24-2012 09:45-0400 Body surface area Derived from formula 2.04 m2 PETE Eligio GALVAN [facility]; [facility] Work Phone: 10-24-2012 09:45-0400 Body temperature 97.6 [degF] PETE Del Valle COLE [facility]; [facility] Work Phone: Comment on above: Method: Oral 10-24-2012 09:45-0400 Body weight 97.52 kg PTEE Del Valle COLE [facility]; [facility] Work Phone: 10-24-2012 09:45-0400 Diastolic blood pressure 80 mm[Hg] PETEBORIS Del Valle COLE [facility]; [facility] Work Phone: Comment on above: Patient Position: Sitting; Cuff Location : Left Arm; Cuff Size: Standard 10-24-2012 09:45-0400 Heart rate 90 /min PETE Del Valle COLE [facility]; [facility] Work Phone: Comment on above: Pattern: Regular 10-24-2012 09:45-0400 Respiratory rate 20 /min PETE Del Valle CO[facility]; [facility] Work Phone: Comment on above: Pattern: Unlabored 10-24-2012 09:45-0400 Systolic blood pressure 124 mm[Hg] PETE Del Valle LPN [facility]; [facility] Work Phone: Comment on above: Patient Position: Sitting; Cuff Location : Left Arm; Cuff Size: Standard 09-12-2012 09:30-0400 Body height 165.1 cm PETEBORIS Del Valle LPN [facility]; [facility] Work Phone: 09-12-2012 09:30-0400 Body mass index (BMI) [Ratio] 36.94 kg/m2 PETE Del Valle COLE [facility]; [facility] Work Phone: 09-12-2012 09:30-0400 Body surface area Derived from formula 2.07 m2 PETE Del Valle LPN [facility]; [facility] Work Phone: 09-12-2012 09:30-0400 Body temperature 98.9 [degF] PETEBORIS Del Valle COLE [facility]; [facility] Work Phone: Comment on above: Method: Oral 09-12-2012 09:30-0400 Body weight 100.7 kg PETE Del Valle LPN [facility]; [facility] Work Phone: 09-12-2012 09:30-0400 Diastolic blood pressure 80 mm[Hg] PETE Del Valle LPN [facility]; [facility] Work Phone: Comment on above: Patient Position: Sitting; Cuff Location : Left Arm; Cuff Size: Large 09-12-2012 09:30-0400 Heart rate 76 /min PETE Del Valle LPN [facility]; [facility] Work Phone: Comment on above: Pattern: Regular 09-12-2012 09:30-0400 Respiratory rate 18 /min PETE Del Valle LPN [facility]; [facility] Work Phone: Comment on above: Pattern: Unlabored 09-12-2012 09:30-0400 Systolic blood pressure 130 mm[Hg] PETE Del Valle LPN [facility]; [facility] Work Phone: Comment on above: Patient Position: Sitting; Cuff Location : Left Arm; Cuff Size: Large 06-13-2012 09:45-0400 Body height 165.1 cm PETE Del Valle LPN [facility]; [facility] Work Phone: 06-13-2012 09:45-0400 Body mass index (BMI) [Ratio] 34.95 kg/m2 PETE Del Valle LPN [facility]; [facility] Work Phone: 06-13-2012 09:45-0400 Body surface area Derived from formula 2.02 m2 PETE Del Valle LPN [facility]; [facility] Work Phone: 06-13-2012 09:45-0400 Body temperature 99.1 [degF] PETE Del Valle LPN [facility]; [facility] Work Phone: Comment on above: Method: Oral 06-13-2012 09:45-0400 Body weight 95.26 kg PETE Del Valle LPN [facility]; [facility] Work Phone: 06-13-2012 09:45-0400 Diastolic blood pressure 80 mm[Hg] PETE Del Valle LPN [facility]; [facility] Work Phone: Comment on above: Patient Position: Sitting; Cuff Location : Left Arm; Cuff Size: Standard 06-13-2012 09:45-0400 Heart rate 76 /min PETE Del Valle LPN [facility]; [facility] Work Phone: Comment on above: Pattern: Regular 06-13-2012 09:45-0400 Respiratory rate 18 /min PETE Del Valle LPN [facility]; [facility] Work Phone: Comment on above: Pattern: Unlabored 06-13-2012 09:45-0400 Systolic blood pressure 128 mm[Hg] PETE Del Valle LPN [facility]; [facility] Work Phone: Comment on above: Patient Position: Sitting; Cuff Location : Left Arm; Cuff Size: Standard 04-14-2012 10:07-0500 Body height 165.1 cm Hetal Anderson RN [facility]; [facility] Work Phone: 04-14-2012 10:07-0500 Body mass index (BMI) [Ratio] 35.11 kg/m2 Hetal Anderson RN [facility]; [facility] Work Phone: 04-14-2012 10:07-0500 Body surface area Derived from formula 2.02 m2 Hetal Anderson RN [facility]; [facility] Work Phone: 04-14-2012 10:07-0500 Body temperature 97.2 [degF] Hetal Anderson RN [facility]; [facility] Work Phone: Comment on above: Method: Temporal 04-14-2012 10:07-0500 Body weight 95.71 kg Hetal Anderson RN [facility]; [facility] Work Phone: 04-14-2012 10:07-0500 Diastolic blood pressure 76 mm[Hg] Hetal Anderson RN [facility]; [facility] Work Phone: Comment on above: Patient Position: Sitting; Cuff Location : Left Arm; Cuff Size: Standard 04-14-2012 10:07-0500 Heart rate 88 /min Hetal Anderson RN [facility]; [facility] Work Phone: Comment on above: Pattern: Regular 04-14-2012 10:07-0500 Respiratory rate 16 /min Hetal Anderson RN [facility]; [facility] Work Phone: Comment on above: Pattern: Unlabored 04-14-2012 10:07-0500 SaO2% (BldA) [Mass fraction] 99 % Hetal Anderson RN [facility]; [facility] Work Phone: Comment on above: Room air 04-14-2012 10:07-0500 Systolic blood pressure 138 mm[Hg] Hetal Anderson RN [facility]; [facility] Work Phone: Comment on above: Patient Position: Sitting; Cuff Location : Left Arm; Cuff Size: Standard 03-24-2012 10:49-0500 Body height 165.1 cm Hetal Anderson RN [facility]; [facility] Work Phone: 03-24-2012 10:49-0500 Body mass index (BMI) [Ratio] 35.78 kg/m2 Hetal Anderson RN [facility]; [facility] Work Phone: 03-24-2012 10:49-0500 Body surface area Derived from formula 2.04 m2 Hetal Anderson RN [facility]; [facility] Work Phone: 03-24-2012 10:49-0500 Body temperature 97.7 [degF] Hetal Anderson RN [facility]; [facility] Work Phone: Comment on above: Method: Oral 03-24-2012 10:49-0500 Body weight 97.52 kg Hetal Mayn[facility]; [facility] Work Phone: 03-24-2012 10:49-0500 Diastolic blood pressure 78 mm[Hg] Hetal L Long RN [facility]; [facility] Work Phone: Comment on above: Patient Position: Sitting; Cuff Location : Left Arm; Cuff Size: Standard 03-24-2012 10:49-0500 Heart rate 72 /min Hetal Anderson RN [facility]; [facility] Work Phone: Comment on above: Pattern: Regular 03-24-2012 10:49-0500 Respiratory rate 16 /min Hetal Anderson RN [facility]; [facility] Work Phone: Comment on above: Pattern: Unlabored 03-24-2012 10:49-0500 Systolic blood pressure 134 mm[Hg] Hetal Anderson RN [facility]; [facility] Work Phone: Comment on above: Patient Position: Sitting; Cuff Location : Left Arm; Cuff Size: Standard Encounters Encounter Date Encounter Type Care Provider Facility Start: 11-16-2024 End: 11-16-2024 ambulatory Isael MARES [place] [place]: 01-30-2024 End: 01-30-2024 ambulatory Kirstin Rg Facility:[facility] Start: 01-25-2024 End: 01-25-2024 Emergency department patient visit [facility] Start: 12-27-2023 End: 12-27-2023 Emergency department patient visit [facility] Start: 12-14-2023 End: 12-14-2023 Emergency department patient visit COLE PUGA [facility] Start: 06-25-2023 End: 06-25-2023 ambulatory NGOZI LLANES [facility] Start: 06-25-2023 End: 06-25-2023 Office outpatient new 45 minutes Ngozi Llanes PA-C Work Phone: [facility] Comment on above: Cervical spondylosis (Primary Dx); Cervical pain; Myalgia Start: 05-27-2023 End: 05-27-2023 ambulatory JOSELYN-C Kirstin Rg Work Phone: [facility] Work Phone: Start: 05-27-2023 End: 05-27-2023 Patient encounter procedure LEVELER-C Kirstin Rg Work Phone: [facility] Work Phone: Start: 04-20-2023 End: 04-20-2023 Patient encounter procedure LEVELER-C Kirstin Rg Work Phone: [facility] Work Phone: Start: 09-28-2022 End: 10-08-2022 Office outpatient visit 25 minutes Shraddha Holley DO Work Phone: [facility] Start: 08-10-2022 End: 08-10-2022 Office outpatient visit 25 minutes Kirstin Rg CNP Work Phone: [facility] Start: 07-09-2022 End: 07-09-2022 Annotation/Addendum Kirstin Rg CNP Work Phone: [facility] Start: 07-06-2022 End: 07-06-2022 Patient encounter procedure Kirstin Rg CNP Work Phone: [facility] Start: 06-29-2022 ambulatory Kirstin Rg CNP [facility] Start: 06-29-2022 End: 07-06-2022 Office outpatient visit 15 minutes Kirstin Rg CNP Work Phone: [facility] Start: 06-29-2022 Review Kirstin Rg CNP Work Phone: [facility] Start: 05-11-2022 End: 05-17-2022 Office outpatient visit 15 minutes Kirstin Rg CNP Work Phone: [facility] Start: 05-11-2022 Review Kirstin Rg CNP Work Phone: [facility] Start: 10-06-2021 End: 10-10-2021 Office outpatient visit 25 minutes Kirstin Rg CNP Work Phone: [facility] Start: 10-06-2021 Review Kirstin Rg CNP Work Phone: [facility] Start: 09-01-2021 End: 09-11-2021 Office outpatient visit 5 minutes Kirstin Rg CNP Work Phone: [facility] Start: 08-31-2021 End: 08-31-2021 Lab Order Kirstin Rg SENIOR ENVIRONMENTAL TECHNICIAN Work Phone: [facility] Start: 08-29-2021 End: 08-29-2021 Office outpatient visit 15 minutes Kirstin Rg SENIOR ENVIRONMENTAL TECHNICIAN Work Phone: [facility] Start: 06-02-2021 End: 06-02-2021 Office outpatient visit 10 minutes Anca Villatoro Work Phone: [facility] Start: 05-29-2021 End: 05-29-2021 Office outpatient visit 10 minutes Anca Cervantesa Work Phone: [facility] Start: 03-06-2021 End: 03-06-2021 Office outpatient visit 15 minutes Anca Cervantesa SENIOR ENVIRONMENTAL TECHNICIAN Work Phone: [facility] Start: 02-20-2021 End: 02-20-2021 Office outpatient visit 25 minutes Anca Cervantesa SENIOR ENVIRONMENTAL TECHNICIAN Work Phone: [facility] Start: 01-06-2021 End: 01-06-2021 Office outpatient visit 25 minutes Anca Cervantesa SENIOR ENVIRONMENTAL TECHNICIAN Work Phone: [facility] Start: 12-26-2020 End: 12-26-2020 Office outpatient new 45 minutes Anca Cervantesa SENIOR ENVIRONMENTAL TECHNICIAN Work Phone: [facility] Start: 02-02-2015 End: 02-02-2015 Office outpatient visit 15 minutes Anca Cervantesa SENIOR ENVIRONMENTAL TECHNICIAN Work Phone: [facility] Start: 11-25-2014 End: 11-25-2014 Refill Request Anca Cervantesa SENIOR ENVIRONMENTAL TECHNICIAN Work Phone: [facility] Start: 11-15-2014 End: 11-15-2014 Office outpatient visit 10 minutes Anca Cervantesa SENIOR ENVIRONMENTAL TECHNICIAN Work Phone: [facility] Start: 09-08-2014 End: 09-08-2014 Office outpatient visit 25 minutes Anca Cervantesa SENIOR ENVIRONMENTAL TECHNICIAN Work Phone: [facility] Start: 09-03-2014 End: 09-03-2014 Office outpatient visit 25 minutes Anca Villatoro CNP Work Phone: [facility] Start: 08-16-2014 End: 08-16-2014 Office outpatient visit 10 minutes Anca Villatoro CNP Work Phone: [facility] Start: 07-01-2014 End: 07-01-2014 Phone Encounter Anca Villatoro CNP Work Phone: [facility] Start: 06-21-2014 End: 06-21-2014 Office outpatient visit 40 minutes Anca Villatoro CNP Work Phone: [facility] Start: 05-17-2014 End: 05-17-2014 Office outpatient visit 10 minutes Anca Villatoro CNP Work Phone: [facility] Start: 04-20-2014 End: 04-20-2014 Office outpatient visit 15 minutes Anca Villatoro CNP Work Phone: [facility] Start: 10-06-2013 End: 10-06-2013 Phone Encounter Anca Villatoro CNP Work Phone: [facility] Start: 09-17-2013 End: 09-17-2013 Phone Encounter Anca Villatoro CNP Work Phone: [facility] Start: 09-14-2013 End: 09-14-2013 Office outpatient visit 15 minutes Anca Villatoro CNP Work Phone: [facility] Start: 08-10-2013 End: 08-10-2013 Phone Encounter Anca Villatoro CNP Work Phone: [facility] Start: 08-06-2013 End: 08-06-2013 Patient encounter procedure Anca Villatoro CNP Work Phone: [facility] Start: 04-28-2013 End: 04-28-2013 Patient encounter procedure Anca Villatoro CNP Work Phone: [facility] Start: 04-17-2013 End: 04-17-2013 Office outpatient visit 15 minutes Anca Villatoro CNP Work Phone: [facility] Start: 03-19-2013 End: 03-19-2013 Patient encounter procedure Anca Villatoro CNP Work Phone: [facility] Start: 02-27-2013 End: 02-27-2013 Patient encounter procedure Anca Villatoro CNP Work Phone: [facility] Start: 02-03-2013 End: 02-03-2013 Phone Encounter Anca Villatoro CNP Work Phone: [facility] Start: 01-26-2013 End: 01-26-2013 Patient encounter procedure Anca Villatoro CNP Work Phone: [facility] Start: 11-04-2012 End: 11-04-2012 Phone Encounter Anca Villatoro CNP Work Phone: [facility] Start: 10-24-2012 End: 10-24-2012 Patient encounter procedure Anca Villatoro CNP Work Phone: [facility] Start: 09-12-2012 End: 09-12-2012 Patient encounter procedure Anca Villatoro CNP Work Phone: [facility] Start: 06-13-2012 End: 06-13-2012 Patient encounter procedure Anca Villatoro CNP Work Phone: [facility] Start: 04-22-2012 End: 04-22-2012 Phone Encounter Anca Villatoro CNP Work Phone: [facility] Start: 04-14-2012 End: 04-14-2012 Patient encounter procedure Anca Villatoro CNP Work Phone: [facility] Start: 03-24-2012 End: 03-24-2012 Patient encounter procedure Anca Villatoro CNP Work Phone: [facility] Procedures Date Procedure Procedure Detail Performing Clinician Start: 05-27-2023 MRI of brain with contrast LEVELER-C Kirstin Rg Work Phone: Start: 05-27-2023 MRI of cervical spine N P-C Kirstin Rg Work Phone: Start: 07-12-2022 End: 07-12-2022 SCRN MAMM (CAD)W/SHEILA BILAT Procedure Note: See Note; NOTES: [facility] Services [address] [place] [address] SCRN MAMM (CAD)W/SHEILA BILAT MR#: [id number] Acct: [id number] Name: DIANA LEE Rep #: [id number] : 1970 F 52 From: Todd hogue MD PCP: ANTONIETTA Beckham Status: REG CLI Study: SCRN MAMM (CAD)W/SHEILA BILAT Date of Exam: 06/25 10/17 Exam# [id number] Ordering Dr: Kirstin Rg LEVELER-C MAMMOGRAPHY - BILATERAL SCREENING REASON FOR EXAM: Female, 52 years old. Routine annual screening examination. PERTINENT HISTORY: Non-contributory. TECHNIQUE: Digital bilateral breast sheila (3D mammographic acquisition) in the CC and MLO projections. 2-D mediolateral oblique (MLO) and craniocaudad (CC) views of both breasts were obtained. CAD: Full Field Digital Mammography with Computer Added Detection was performed. COMPARISON: Comparison is made with prior examination dated April 15, 2019 and November 06, 2017. FINDINGS: Breast Composition: There are scattered areas of fibroglandular density. There are no dominant masses or suspicious calcifications. Stable asymmetry of breast tissue with more breast tissue is seen in the upper-outer quadrant left breast as compared to the right side. Stable small benign-appearing bilateral axillary lymph nodes. No other significant abnormalities are identified. There has been no significant change since the prior study. BI/SCRN MAMM (CAD)W/SHEILA BILAT IMPRESSION: Stable bilateral screening mammogram. Yearly follow-up mammogram recommended. (A) ASSESSMENT CATEGORY: BIRADS Category 2: Benign. A letter regarding these results will be sent to the patient by the facility within 30 days. Approximately 10% of breast cancers are not detected by mammography. A normal mammogram should not delay biopsy of a clinically suspicious abnormality. [id number] Electronically Signed: Todd Conrad MD at 9:35 EDT , CC: LEVELERAbigail Rg Bakery Deliverer: Signed Kirstin Rg CNP Work Phone: Start: 02-20-2021 End: 02-20-2021 Chest PA and Lateral Comments: See Note; NOTES: [facility] [address] [place] [address] Chest PA and Lateral MR#: [id number] Acct: [id number] Name: DIANA LEE Rep #: [id number] : 1970 F 50 From: Kaushal Francois MD PCP: ANTONIETTA Gamez Status: DEP AMB Study: Chest PA and Lateral Date of Exam: 02/20/21 Exam# [id number] Ordering Dr: Anca Villatoro NP STUDY: X-RAY CHEST REASON FOR EXAM: Female, 50 years old. Chest tightness for one week TECHNIQUE: PA and lateral views of the chest. COMPARISON: None. FINDINGS: The lungs are clear and expanded. There is no demonstrated pleural abnormality. Normal size heart. Normal mediastinum and davy. Normal visualized pulmonary arteries. Normal visualized aortic arch and descending thoracic aorta. Normal visualized thoracic spine. Normal visualized ribs, clavicles, and shoulders. There is no demonstrated abnormality of the visualized soft tissue structures of the upper abdomen. RAD/Chest PA and Lateral IMPRESSION: Normal x-ray examination of the chest. Electronically Signed: Kaushal Francois MD (Brooks) at 11:53 EST , Service support , CC: ANTONIETTA Villatoro Bakery Deliverer: Signed Anca Villatoro SENIOR ENVIRONMENTAL TECHNICIAN Work Phone: Start: 11-22-2014 End: 11-22-2014 Bilat Scrn Digital AND CAD Comments: See Note; NOTES: [facility] [address] [place] [address] Breast Imaging Report MR#: [id number] Acct: [id number] Name: DIANA LEE Rep #: [id number] : 1970 F 44 From: Todd Conrad MD PCP: Mohinder Wetzel MD Status: REG CLI Study: Bilat Scrn Digital AND CAD Date of Exam: 11/22/14 Exam# [id number] Ordering Dr: Mohinder Wetzel MD MAMMOGRAPHY - BILATERAL SCREENING REASON FOR EXAM: Female, 44 years old. Routine annual screening examination. PERTINENT HISTORY: Non-contributory. TECHNIQUE: Digital examination. Mediolateral oblique (MLO) and craniocaudad (CC) views of both breasts were obtained. CAD: CAD was performed on this study. COMPARISON: Comparison is made with prior study dated April 04, 2012. FINDINGS: Breast Composition: There are scattered areas of fibroglandular density. There are no dominant masses or suspicious calcifications. No other significant abnormalities are identified. There has been no significant change since the prior study. IMPRESSION: Stable bilateral screening mammogram. Yearly follow-up recommended. (A) ASSESSMENT CATEGORY: BIRADS Category 1: Negative. A letter regarding these results will be sent to the patient by the facility within 30 days. Approximately 10% of breast cancers are not detected by mammography. A normal mammogram should not delay biopsy of a clinically suspicious abnormality. Electronically Signed: Todd Conrad MD at 8:56 EDT Tel [phone], Service support [phone], CC: Mohinder Wetzel MD Bakery Deliverer: Signed Mohinder Wetzel MD Work Phone: Start: 09-03-2014 End: 09-03-2014 Acute Abdomen Inc Chest Comments: See Note; NOTES: [facility] [address] [place] [address] Radiology Report MR#: [id number] Acct: [id number] Name: DIANA LEE Rep #: [id number] : 1970 F 44 From: Todd Conrad MD PCP: Mohinder Wetzel MD Status: REG CLI Study: Acute Abdomen Inc Chest Date of Exam: 09/03/14 Exam# [id number] Ordering Dr: Shraddha Holley DO STUDY: X-RAY - ACUTE ABDOMINAL SERIES REASON FOR EXAM: Female, 44 years old. 3 day history of left-sided abdominal pain. TECHNIQUE: Single view of the chest. Supine, and erect view(s) of the abdomen were obtained. COMPARISON: None. FINDINGS: The lungs are clear and expanded. Scattered calcified granulomas. Normal size heart. Normal mediastinum and davy. Normal visualized pulmonary arteries. Normal visualized aortic arch and descending thoracic aorta. There is a moderate amount of colonic fecal material. The soft tissue structures of the abdomen and pelvis are unremarkable. Normal visualized osseous structures. IMPRESSION: Moderate amount of fecal material is seen in the colon. Electronically Signed: Todd Conrad MD at 14:27 EDT Tel [phone], Service support [phone], RAD/Acute Abdomen Inc Chest IMPRESSION: Moderate amount of fecal material is seen in the colon. Electronically Signed: Todd Conrad MD at 14:27 EDT Tel [phone], Service support [phone], CC: Mohinder Wetzel MD; Shraddha Holley DO Bakery Deliverer: Signed Shraddha Holley DO Work Phone: bariatric weight los s Dec 2018 Sandee Dylon THRESHING DEPARTMENT SUPERVISOR bariatric weight los s Dec 2018 Howard Edu THRESHING DEPARTMENT SUPERVISOR bariatric weight los s Dec 2018 [place] CONSUMER LENDER bariatric weight los s Dec 2018 Howard Edu THRESHING DEPARTMENT SUPERVISOR bariatric weight los s Dec 2018 Kirstin Rg SENIOR ENVIRONMENTAL TECHNICIAN Work Phone: bariatric weight los s Dec 2018 Ashtyn Slarb THRESHING DEPARTMENT SUPERVISOR bariatric weight los s Dec 2018 Ashtyn Slarb THRESHING DEPARTMENT SUPERVISOR bariatric weight los s Dec 2018 Ashtyn Slarb THRESHING DEPARTMENT SUPERVISOR bladder exploratory surgery Sandee Dylon THRESHING DEPARTMENT SUPERVISOR bladder exploratory surgery Howard Edu THRESHING DEPARTMENT SUPERVISOR bladder exploratory surgery Johna Emerita CONSUMER LENDER bladder exploratory surgery Howard Edu THRESHING DEPARTMENT SUPERVISOR bladder exploratory surgery Kirstin Rg SENIOR ENVIRONMENTAL TECHNICIAN Work Phone: bladder exploratory surgery Ashtyn Slarb THRESHING DEPARTMENT SUPERVISOR bladder exploratory surgery Ashtyn Slarb THRESHING DEPARTMENT SUPERVISOR bladder exploratory surgery Ashtyn Slarb THRESHING DEPARTMENT SUPERVISOR section Sandee Coffm an THRESHING DEPARTMENT SUPERVISOR Comment on above: x2, no complications section Howard Bud s THRESHING DEPARTMENT SUPERVISOR Comment on above: x2, no complications section Kankechia Radf ord CONSUMER LENDER Comment on above: x2, no complications section Howard Bud s THRESHING DEPARTMENT SUPERVISOR Comment on above: x2, no complications section Kirstin aguilar SENIOR ENVIRONMENTAL TECHNICIAN Work Phone: Comment on above: x2, no complications section Ashtyn Slar b THRESHING DEPARTMENT SUPERVISOR Comment on above: x2, no complications section Ashtyn Slar b THRESHING DEPARTMENT SUPERVISOR Comment on above: x2, no complications section Ashtyn Slar b THRESHING DEPARTMENT SUPERVISOR Comment on above: x2, no complications History of total hysterectomy History of hysterectomy including cervix Kirstin Rg SENIOR ENVIRONMENTAL TECHNICIAN Work Phone: Comment on above: still has ovaries History of total hysterectomy History of hysterectomy including cervix Kirstin Arcenio SENIOR ENVIRONMENTAL TECHNICIAN Work Phone: History of total hysterectomy History of hysterectomy including cervix Kirstin Arcenio SENIOR ENVIRONMENTAL TECHNICIAN Work Phone: Comment on above: still has ovaries History of total hysterectomy History of hysterectomy including cervix Ashtyn Slarb THRESHING DEPARTMENT SUPERVISOR Comment on above: still has ovaries History of total hysterectomy History of hysterectomy including cervix Kirstin Rg SENIOR ENVIRONMENTAL TECHNICIAN Work Phone: Comment on above: still has ovaries History of total hysterectomy History of hysterectomy including cervix Ashtyn Slarb THRESHING DEPARTMENT SUPERVISOR Comment on above: still has ovaries Hysterectomy Sandee Dylon L PN Comment on above: COMPLETE Hysterectomy Howard Edu LP N Comment on above: COMPLETE Hysterectomy Kayela Emerita CONSUMER LENDER Comment on above: COMPLETE Hysterectomy Howard Edu LP N Comment on above: COMPLETE Hysterectomy Kirstin Rg SENIOR ENVIRONMENTAL TECHNICIAN Work Phone: Comment on above: COMPLETE Hysterectomy Ashtyn Slarb LP N Comment on above: COMPLETE Hysterectomy Ashtyn Slarb LP N Comment on above: COMPLETE Hysterectomy Ashtyn Slarb LP N Comment on above: COMPLETE laproscopy Sandee Dylon L PN laproscopy Howard [employer] LP N laproscopy Kayela [place] CONSUMER LENDER laproscopy Howard Edu LP N laproscopy Kirstin Rg SENIOR ENVIRONMENTAL TECHNICIAN Work Phone: laproscopy Ashtyn Slarb LP N laproscopy Ashtyn Slarb LP N laproscopy Ashtyn Slarb LP N Screening colonoscopy Sandee Dylon THRESHING DEPARTMENT SUPERVISOR Comment on above: Megan Knapp JPHaround 2006 Screening colonoscopy Howard Edu THRESHING DEPARTMENT SUPERVISOR Comment on above: Megan Knapp JPHaround 2006 Screening colonoscopy Kayela Emerita CONSUMER LENDER Comment on above: Megan Knapp JPHaround 2006 Screening colonoscopy Howard Edu THRESHING DEPARTMENT SUPERVISOR Comment on above: Megan Knapp JPHaround 2006 Screening colonoscopy Corine Lawrenceam SENIOR ENVIRONMENTAL TECHNICIAN Work Phone: Comment on above: Megan Knapp JPHaround 2006 Screening colonoscopy Ashtyn Slarb THRESHING DEPARTMENT SUPERVISOR Comment on above: Megan Knapp JPHaround 2006 Screening colonoscopy Ashtyn Slarb THRESHING DEPARTMENT SUPERVISOR Comment on above: Megan Knapp JPHaround 2006 Screening colonoscopy Ashtyn Slarb THRESHING DEPARTMENT SUPERVISOR Comment on above: Megan Knapp JPHaround 2006 Screening mammography Sandee Dylon THRESHING DEPARTMENT SUPERVISOR Comment on above: has never had one Screening mammography Howard Edu THRESHING DEPARTMENT SUPERVISOR Comment on above: has never had one Screening mammography Kayela [place] CONSUMER LENDER Comment on above: has never had one Screening mammography Howard Edu THRESHING DEPARTMENT SUPERVISOR Comment on above: has never had one Screening mammography Corine Lawrenceam SENIOR ENVIRONMENTAL TECHNICIAN Work Phone: Comment on above: has never had one Screening mammography Ashtyn Jp GALVAN Comment on above: has never had one Screening mammography Ashtyn Gerarb THRESHING DEPARTMENT SUPERVISOR Comment on above: has never had one Screening mammography Ashtyn Gerarb THRESHING DEPARTMENT SUPERVISOR Comment on above: has never had one Plan of Treatment Date Care Activity Detail Author Start: 10-27-2023 Influenza vaccination Influenza Vaccine (Season Ended) [facility] Start: 06-25-2023 End: 06-24-2024 Medial Nerve Branch Block Medial Nerve Branch Block Procedures Routine Cervical spondylosis Expected: 06/25/2023 (Approximate), Expires: 06/24/2024 [facility] Service Area Work Phone: Comment on above: Expected: 06/25/2023 (Approximate), Expi res: 06/24/2024 Start: 10-26-2022 COVID-19 Vaccine ( season) COVID-19 Vaccine ( season) [facility] Start: 10-08-2022 Provider Instructions for Treatment Reviewed Lab [facility] Work Phone: Start: 09-28-2022 Lipid panel LIPID PANEL (66330) : do dec 2022 [facility] Work Phone: Start: 09-28-2022 Procedure Education Eprescribed prescriptions (G8553) [facility]; [facility] Work Phone: Start: 09-28-2022 Provider Instructions for Treatment Follow up - transferring care to Dr. Holley (has been on wait list) [facility] Work Phone: Start: 08-10-2022 Assay of ferritin FERRITIN (77816) [facility]; [facility] Work Phone: Start: 08-10-2022 Assay of free thyroxine THYROXINE FREE (26308) : do around 08/15 [facility] Work Phone: Start: 08-10-2022 Assay of iron IRON & TOTAL IRON BINDING CAPACITY (53878) [facility]; [facility] Work Phone: Start: 08-10-2022 Assay of thyroid stimulating hormone tsh TSH (THYROID STIMULATING HORMONE) (34806) [facility]; [facility] Work Phone: Start: 08-10-2022 Assay of thyroxine binding globulin TBG (THYROXINE BINDING GLOB) (83474) [facility]; [facility] Work Phone: Start: 08-10-2022 Dehydroepiandrosterone-sulfat e DHEA-S (DEHYDROEPIANDROSTERO NE SULFATE) (54373) [facility]; [facility] Work Phone: Start: 08-10-2022 Procedure Education Eprescribed prescriptions (G8553) [facility]; [facility] Work Phone: Start: 08-10-2022 Provider Instructions for Treatment Follow up in 1 month [facility] Work Phone: Start: 06-29-2022 Procedure Education Eprescribed prescriptions (G8553) [facility]; [facility] Work Phone: Start: 06-29-2022 Provider Instructions for Treatment Follow up in 1 month for blood pressure [facility]; [facility] Work Phone: Start: 05-17-2022 25 hydroxy includes fractions if performed CALCIFEDIOL (92697) [facility]; [facility] Work Phone: Start: 05-17-2022 Assay of free thyroxine THYROXINE FREE (81698) [facility]; [facility] Work Phone: Start: 05-17-2022 Assay of parathormone PARATHORMONE (30524) [facility]; [facility] Work Phone: Start: 05-17-2022 Assay of thyroid stimulating hormone tsh TSH (THYROID STIMULATING HORMONE) (72798) [facility]; [facility] Work Phone: Start: 05-17-2022 Blood count complete auto&auto difrntl wbc CBC, PLATELETS & AUT DIFF (97724) [facility]; [facility] Work Phone: Start: 05-17-2022 Comprehensive metabolic panel METABOLIC PANEL, COMPREHENSIVE (58632) [facility]; [facility] Work Phone: Start: 05-17-2022 Lipid panel LIPID PANEL (02362) [facility]; [facility] Work Phone: Start: 05-11-2022 Procedure Education Eprescribed prescriptions (G8553) [facility]; [facility] Work Phone: Start: 05-11-2022 Provider Instructions for Treatment Follow up for general medical visit in 4-6 weeks [facility]; [facility] Work Phone: Start: 10-06-2021 Patient Education Atrophic Vaginitis: estrogen [facility] Work Phone: Start: 10-06-2021 Procedure Education Eprescribed prescriptions (G8553) [facility]; [facility] Work Phone: Start: 10-06-2021 Provider Instructions for Treatment Follow up in 4 months [facility]; [facility] Work Phone: Start: 10-06-2021 CBC, PLATELETS & MANUAL DIFF (22714) CBC, PLATELETS & MANUAL DIFF (86546) [facility]; [facility] Work Phone: Start: 10-06-2021 Comprehensive metabolic panel METABOLIC PANEL, COMPREHENSIVE (99989) [facility] Work Phone: Start: 10-06-2021 25 hydroxy includes fractions if performed CALCIFEDIOL (03887) [facility] Work Phone: Start: 10-06-2021 Lipid panel LIPID PANEL (52436) [facility] Work Phone: Start: 10-06-2021 Assay of thyroid stimulating hormone tsh TSH (THYROID STIMULATING HORMONE) (26689) [facility]; [facility] Work Phone: Start: 08-31-2021 Culture bct isol&prsmptv id isolate ea urine URINE GERONIMO CULTURE-IDENTIFICATN (34208) [facility]; [facility] Work Phone: Start: 08-29-2021 Culture bacterial quanttative colony count urine URINE GERONIMO CULTURE (NIGEL COL COUNT) (13131) [facility]; [facility] Work Phone: Start: 08-29-2021 Procedure Education Eprescribed prescriptions (G8553) [facility]; [facility] Work Phone: Start: 06-02-2021 Procedure Education Eprescribed prescriptions (G8553) [facility]; [facility] Work Phone: Start: 06-02-2021 Provider Instructions for Treatment [facility] Work Phone: Start: 05-29-2021 Procedure Education Eprescribed prescriptions (G8553) [facility]; [facility] Work Phone: Start: 05-29-2021 Provider Instructions for Treatment [facility] Work Phone: Start: 03-06-2021 Procedure Education Eprescribed prescriptions (G8553) [facility] Work Phone: Start: 03-06-2021 Provider Instructions for Treatment Follow up in 3 months follow up in 3 months 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 [facility] Work Phone: Start: 02-20-2021 Patient Education EFUDEX INSTRUCTIONS [facility] Work Phone: Start: 02-20-2021 Procedure Education Eprescribed prescriptions (G8553) [facility]; [facility] Work Phone: Start: 02-20-2021 Provider Instructions for Treatment Follow up in 1 week [facility] Work Phone: Start: 02-20-2021 C-reactive protein high sensitivity C-REACT PROT HIGH SENS(hsCRP) (74448) [facility]; [facility] Work Phone: Start: 02-20-2021 Sedimentation rate rbc non-automated SED RATE ERYTHROCYTE (44182) [facility]; [facility] Work Phone: Start: 02-20-2021 Myoglobin MYOGLOBIN (51869) [facility]; [facility] Work Phone: Start: 02-20-2021 Creatine kinase mb fraction only CPK MB FRACTION (14779) [facility]; [facility] Work Phone: Start: 02-20-2021 Assay of troponin quantitative [facility]; [facility] Work Phone: Start: 01-06-2021 Procedure Education Eprescribed prescriptions (G8553) [facility]; [facility] Work Phone: Start: 01-06-2021 Provider Instructions for Treatment Follow up in 6 weeks [facility]; [facility] Work Phone: Start: 12-26-2020 Dehydroepiandrosterone DHEA (DEHYDROEPIANDROSTERO NE) (65000) [facility]; [facility] Work Phone: Start: 12-26-2020 Procedure Education Eprescribed prescriptions (G8553) [facility]; [facility] Work Phone: Start: 12-26-2020 Provider Instructions for Treatment Follow 10 days [facility] Work Phone: Start: 02-22-2020 Zoster Vaccines (1 of 2) Zoster Vaccines (1 of 2) [facility] Start: 02-02-2015 Provider Instructions for Treatment [facility]; [facility] Work Phone: Start: 11-15-2014 Comprehensive metabolic panel METABOLIC PANEL, COMPREHENSIVE (56685) [facility]; [facility] Work Phone: Start: 11-15-2014 Lipid panel LIPID PANEL (04425) [facility]; [facility] Work Phone: Start: 11-15-2014 Assay of thyroid stimulating hormone tsh TSH (98172) [facility]; [facility] Work Phone: Start: 11-15-2014 25 hydroxy includes fractions if performed CALCIFIDIOL (76061) VIT D 25 [facility]; [facility] Work Phone: Start: 09-08-2014 Provider Instructions for Treatment Follow up in 6 weeks [facility]; [facility] Work Phone: Start: 09-03-2014 Patient Education Abdominal Pain: abdominal pain [facility]; [facility] Work Phone: Start: 09-03-2014 Procedure Education Eprescribed prescriptions (G8553) [facility]; [facility] Work Phone: Start: 09-03-2014 Provider Instructions for Treatment *Abd Pain Red Flags [facility]; [facility] Work Phone: Start: 09-03-2014 Sedimentation rate rbc non-automated Sed Rate Erythrocyte (48644) [facility]; [facility] Work Phone: Start: 09-03-2014 Comprehensive metabolic panel Metabolic Panel, Comprehensive (95215) [facility]; [facility] Work Phone: Start: 09-03-2014 Blood count complete automated CBC (Auto) (60037) [facility]; [facility] Work Phone: Start: 09-03-2014 Assay of lipase LIPASE (24521) [facility]; [facility] Work Phone: Start: 09-03-2014 Assay of amylase AMYLASE (23225) [facility]; [facility] Work Phone: Start: 08-16-2014 Assay of thyroid stimulating hormone tsh TSH (00661) [facility]; [facility] Work Phone: Comment on above: in three months (approximately) Start: 08-16-2014 Comprehensive metabolic panel METABOLIC PANEL, COMPREHENSIVE (20113) [facility]; [facility] Work Phone: Comment on above: in three months (approximately) Start: 08-16-2014 Lipid panel LIPID PANEL (05571) [facility]; [facility] Work Phone: Comment on above: in three months (approximately) Start: 08-16-2014 25 hydroxy includes fractions if performed CALCIFIDIOL (40543) VIT D 25 [facility]; [facility] Work Phone: Comment on above: in three months (approximately) Start: 07-01-2014 Assay of thyroid stimulating hormone tsh TSH (00683) [facility]; [facility] Work Phone: Start: 07-01-2014 Assay of free thyroxine T4, FREE (THYROXINE) (73197) [facility]; [facility] Work Phone: Start: 07-01-2014 Assay of triiodothyronine t3 free T3, FREE (TRIDOTHYRONINE) (42859) [facility]; [facility] Work Phone: Start: 06-21-2014 Microsomal antibodies each Anti-TPO Antibody (33018) [facility]; [facility] Work Phone: Start: 06-21-2014 Assay of thyroid stimulating hormone tsh TSH (12475) [facility]; [facility] Work Phone: Start: 06-21-2014 Assay of free thyroxine T4, FREE (THYROXINE) (09235) [facility]; [facility] Work Phone: Start: 06-21-2014 Assay of triiodothyronine t3 free T3, FREE (TRIDOTHYRONINE) (34504) [facility]; [facility] Work Phone: Start: 05-17-2014 Patient Education Migraine Headache: Brief Version *: migraine headache [facility]; [facility] Work Phone: Start: 04-20-2014 Patient Education Blood Pressure: hypertension [facility]; [facility] Work Phone: Start: 04-20-2014 Procedure Education Eprescribed prescriptions (G8553) [facility]; [facility] Work Phone: Start: 04-20-2014 Lipid panel LIPID PANEL (26531) [facility]; [facility] Work Phone: Start: 10-06-2013 Procedure Education Eprescribed prescriptions (G8553) [facility]; [facility] Work Phone: Start: 08-10-2013 Assay of triiodothyronine t3 free T3, FREE (TRIDOTHYRONINE) (41531) [facility]; [facility] Work Phone: Start: 08-10-2013 Assay of free thyroxine T4, FREE (THYROXINE) (13518) [facility]; [facility] Work Phone: Start: 08-10-2013 Assay of thyroid stimulating hormone tsh TSH (THYROID STIMULATING HORMONE) (22757) [facility]; [facility] Work Phone: Start: 04-17-2013 Provider Instructions for Treatment Follow up in 1 week [facility]; [facility] Work Phone: Start: 03-19-2013 Hla typing a/b/c single antigen HLA-B27 ANTIGEN (45552) [facility]; [facility] Work Phone: Start: 01-26-2013 Patient Education Migraine Headache: Brief Version *: migraine headache [facility]; [facility] Work Phone: Start: 09-12-2012 Patient Education Hypothyroidism: Brief Version *: hypothyroidism [facility]; [facility] Work Phone: Start: 06-13-2012 Patient Education [facility]; [facility] Work Phone: Start: 06-13-2012 Provider Instructions for Treatment [facility]; [facility] Work Phone: Start: 04-14-2012 Patient Education Flu Shots (Influenza Vaccine): prevention [facility]; [facility] Work Phone: Start: 2010 Screening for malignant neoplasm of breast Mammogram [facility] Start: 02-22-1992 DTaP/Tdap/Td Vaccines (1 - Tdap) DTaP/Tdap/Td Vaccines (1 - Tdap) [facility] Start: 1991 Screening for malignant neoplasm of cervix [facility] Start: 1989 Hepatitis B Vaccines (1 of 3 - 19+ 3-dose series) Hepatitis B Vaccines (1 of 3 - 19+ 3-dose series) [facility] Start: 02-22-1988 Diabetes mellitus screening Diabetes Screening [facility] Start: 02-22-1988 Hepatitis C screening Hepatitis C Screening [facility] Start: 1971 MMR Vaccines (1 of 1 - Standard series) MMR Vaccines (1 of 1 - Standard series) [facility] Start: 1970 HIV screening HIV Screening [facility] Start: 1970 Lipid panel Lipid Panel [facility] Start: 1970 Screening for malignant neoplasm of colon [facility] Start: 1970 Thyroid stimulating hormone measurement TSH Level [facility] Start: 1970 Yearly Adult Physical Yearly Adult Physical [facility] Work Phone: [facility] Work Phone: [facility] Work Phone: [facility] Work Phone: [facility] Work Phone: [facility] Work Phone: [facility] Work Phone: [facility] Work Phone: [facility]; [facility] Work Phone: [facility] Work Phone: [facility]; [facility] Work Phone: [facility]; [facility] Work Phone: Immunizations Immunization Date Immunization Notes Care Provider Fa [facility] 12-01-2020 influenza virus vaccine, unspecified formulation Ngozi Llanes PA-C Work Phone: [facility] Work Phone: Payers Date Payer Category Payer Self-pay [id number] 2004 Unknown 2004 Unknown [id number] 1970 Unknown [id number] 1970 Unknown [id number] [id number] [id number] 1970 Unknown [id number] [id number] [id number] 1970 Unknown [id number] [id number] [id number] 1970 Unknown [id number] 2.16.8 [id number] Unknown [id number] [id number] [id number] Unknown [id number] [id number] [id number] Social History Date Type Detail Facility Start: 06-25-2023 Caffeine Use Caffeine Use [facility] Work Phone: Comment on above: 4-5 a week coffee no exposure in home Current Work/Study Status: Current Work/Study Status: [facility]; [facility] Work 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: 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 Tobacco use: Tobacco use: [facility] Work Phone: Start: 04-20-2023 Tobacco smoking status NCIS Unknown if ever smoked [facility] Start: 1970 Sex Assigned At Female [facility] Start: 06-25-2023 Tobacco smoking status NCIS Never smoked tobacco [facility] Work Phone: Start: 06-25-2023 Tobacco use and exposure Smokeless tobacco non-user [facility] Work Phone: Start: 06-25-2023 Alcoholic beverage intake Lifetime non-drinker (finding) [facility] Work Phone: Start: 06-25-2023 Tobacco use panel [facility] Work Phone: Start: 1970 Sex assigned at Not on file [facility] Work Phone: NEGATED: Highlighted rowStart: NINF History of tobacco use Passive smoker [facility] Work Phone: Clinical Notes 06-25-2023 to 01-25-2024 Ngozi Llanes PA-C - 06/25/2023 8:15 AM EDTPatient Instructions Note Date & Type Note Facility 01-25-2024 Note Discharge Instructio ns Discharge Summary [address] [address] [id number] 01/25/2024 Patient: DIANA LEE Sex: Female : 1970 Age: 53y Thank you for visiting [facility]. You have been evaluated today by Lucie Partida D.O. for the following condition(s): Principal Diagnosis Adverse drug reaction involving an oral hypoglycemic. INSTRUCTIONS (Stop taking your Ozempic.). Warnings: GENERAL WARNINGS: Return or contact your physician immediately if your condition worsens or changes unexpectedly, if not improving as expected, or if other problems arise. Prescription Medications: prednisone 20 mg tablet: Take 1 tablet by mouth twice a day for 5 days, dispense 10 tablet. Refills 0. Pharmacy: [facility] [id number] [place] [address]. Follow-up: Follow up with your doctor in three days even if well. Call for an appointment. Reason for referral: evaluation and treatment. Summary of care provided to patient and family. Understanding of the discharge instructions verbalized by patient and family. 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 You have been evaluated today by Lucie Partida D.O. for the following condition(s): Principal Diagnosis Adverse drug reaction involving an oral hypoglycemic. INSTRUCTIONS (Stop taking your Ozempic.). Warnings: GENERAL WARNINGS: Return or contact your physician immediately if your condition worsens or changes unexpectedly, if not improving as expected, or if other problems arise. Prescription Medications: prednisone 20 mg tablet: Take 1 tablet by mouth twice a day for 5 days, dispense 10 tablet. Refills 0. Pharmacy: [facility] [id number] [place] [address]. 2 of 4 Discharge Instructions Follow-up: Follow up with your doctor in three days even if well. Call for an appointment. Reason for referral: evaluation and treatment. Summary of care provided to patient and family. Understanding of the discharge instructions verbalized by patient and family. ADDITIONAL INFORMATION Reaction to Medicine (Other Type) You are having a reaction to a medicine you have taken. This may not be the same as an allergic reaction. It's an unwanted side effect of a medicine. This can cause many symptoms, such as: Dizziness or headache Rash Flushing or a hot feeling Nausea, vomiting, or stomach pain Diarrhea or constipation Trouble breathing High or low blood pressure A reaction can be an upset stomach from something such as aspirin or ibuprofen. It can also be feeling faint after taking a blood pressure medicine, feeling anxious, and many other things. Symptoms can range from very mild to very severe. In most cases, the reaction goes away in 1 to 12 hours. But it will likely happen again if you take this same medicine. Your healthcare provider will advise you if you need to change how much, when, or how often you take this medicine. They may also advise you to stop using this medicine. Or your provider may have you switch to another one. Home care Another medicine may be advised to reduce your symptoms until the medicine's effect wears off. Follow your healthcare provider's advice. When the medicine's effect has worn off, there should be no more problem if you don't take the same medicine again. 3 of 4 Discharge Instructions Ask your provider if you should also stay away from similar medicines. Write down the information so you will remember it. Be sure the medicine reaction is put into your health record. Follow-up care Follow up with your healthcare provider, or as advised if your symptoms are not better in 24 hours. When to get medical advice Call your healthcare provider right away if any of these occur: New symptoms that worry you Your current symptoms get worse, including rash or facial swelling Symptoms are not eased by the treatment advised Fever of 100.4F (38C) or higher, or as advised by your provider Chills Call 911 Call 911 if any of these occur: Trouble breathing or swallowing, or wheezing Hoarse voice or trouble speaking Confusion Extreme drowsiness or trouble waking up Fainting or loss of consciousness Fast or slow heart rate Very low or very high blood pressure Vomiting blood, or large amounts of blood in stool (more content not included)... [facility] 12-29-2023 Note Discharge Instructio ns Discharge Summary [address] [address] [id number] 12/27/2023 Patient: DIANA LEE Sex: Female : 1970 Age: 53y Thank you for visiting [facility]. You have been evaluated today by Lucie Partida D.O. for the following condition(s): Principal Diagnosis Acquired angioedema secondary to unknown cause with facial swelling. INSTRUCTIONS No strenuous activity. Warnings: GENERAL WARNINGS: Return or contact your physician immediately if your condition worsens or changes unexpectedly, if not improving as expected, or if other problems arise. Prescription Medications: prednisone 20 mg tablet: Take 1 tablet by mouth twice a day for 5 days, dispense 10 tablet. Refills 0. Pharmacy: [facility] [id number] [place] [address]. Benadryl Allergy 50 mg tablet: Take 1 tablet by mouth every six hours as needed, dispense 20 tablet. Refills 0. Pharmacy: [facility] [id number] [place] [address]. Follow-up: Follow up with your doctor today as scheduled even if well. Reason for referral: evaluation and treatment. 1 of 6 Discharge Instructions Summary of care provided to patient and family. Robyn Milligan-- [place], [place]. Understanding of the discharge instructions verbalized by patient and family. You have been given the following additional information: Angioedema Patient Signature Facility Balloon Maker Date/Time General Instructions with ExitWriter [address] [address] [id number] 12/27/2023 Patient: DIANA LEE Sex: Female : 1970 Age: 53y Thank you for visiting [facility]. You have been evaluated today by Lucie Partida D.O. for the following condition(s): Principal Diagnosis Acquired angioedema secondary to unknown cause with facial swelling. INSTRUCTIONS No strenuous activity. Warnings: GENERAL WARNINGS: Return or contact your physician immediately if your condition worsens or changes unexpectedly, if not improving as expected, or if other problems arise. Prescription Medications: 2 of 6 Discharge Instructions prednisone 20 mg tablet: Take 1 tablet by mouth twice a day for 5 days, dispense 10 tablet. Refills 0. Pharmacy: [facility] [id number] [place] [address]. Benadryl Allergy 50 mg tablet: Take 1 tablet by mouth every six hours as needed, dispense 20 tablet. Refills 0. Pharmacy: [facility] [id number] [place] [address]. Follow-up: Follow up with your doctor today as scheduled even if well. Reason for referral: evaluation and treatment. Summary of care provided to patient and family. Robyn Milligan-- [place], [place]. Understanding of the discharge instructions verbalized by patient and family. ADDITIONAL INFORMATION Angioedema Angioedema (PH-dpl-ra-eh-ASHA-muh) is a sudden appearance of swollen patches (edema) on the skin or mucous membranes. It most often involves the face, lips, mouth, tongue, back of throat, or vocal cords. It may also occur in other places, such as the arms, legs, or genitals. A rash may also appear during the first 4 days of this illness. There are different types of angioedema. Sometimes angioedema is part of an allergic reaction (allergic angioedema). Other times angioedema is present without any other signs of allergic reaction (isolated angioedema). Your symptoms will depend on what type of angioedema you have. Like allergic reactions, angioedema may include: Rash, hives, redness, welts, blisters Itching, burning, stinging, pain Dry, flaky, cracking, or scaly skin Swelling of the face, lips, tongue, or other parts of the body More severe symptoms may include: Trouble swallowing, or feeling like your throat is closing 3 of 6 Discharge Instructions Trouble breathing or wheezing Hoarse voice or trouble speaking Nausea, vomiting, diarrhea, or stomach cramps Feeling faint or lightheaded, rapid heart rate, or low blood pressure Angioedema can be triggered by exposure to certain substances. Medical conditions involving the immune systems and certain infections may cause it. In rare cases, angioedema can be hereditary. Sometimes the cause may be very clear. However, it's often hard to find a cause. The most common causes of allergic angioedema include: Foods, such as shrimp, shellfish, peanuts, milk products, gluten, and eggs; also colorings, flavorings, and additives Insect bites or stings, from bees, mosquitoes, fleas, or ticks Medicines, such as PHOENIX inhibitors, penicillin medicines, sulfa medicines, , aspirin, and ibuprof (more content not included)... [facility] 12-15-2023 Note Discharge Instructio ns Discharge Summary [address] [address] [id number] 12/14/2023 Patient: DIANA LEE Sex: Female : 1970 Age: 53y Thank you for visiting [facility]. You have been evaluated today by Cole Puga D.O. for the following condition(s): Principal Diagnosis INSTRUCTIONS (call your doctor saturday tell him about your symptoms. May need Stress test. Return if any problems or concerns). Follow-up: Follow up with your doctor in two days. Call for an appointment. You have been given the following additional information: Uncertain Causes of Chest Pain Patient [facility] Date/Time 1 of 4 Discharge Instructions General Instructions with ExitWriter [address] [address] [id number] 12/14/2023 Patient: DIANA LEE Sex: Female : 1970 Age: 53y Thank you for visiting [facility]. You have been evaluated today by Cole Puga D.O. for the following condition(s): Principal Diagnosis INSTRUCTIONS (call your doctor saturday tell him about your symptoms. May need Stress test. Return if any problems or concerns). Follow-up: Follow up with your doctor in two days. Call for an appointment. ADDITIONAL INFORMATION 2 of 4 Discharge Instructions Uncertain Causes of Chest Pain Chest pain can happen for a number of reasons. Sometimes the cause can't be determined. If your condition does not seem serious, and your pain does not appear to be coming from your heart, your healthcare provider may recommend watching it closely. Sometimes the signs of a serious problem take more time to appear. Many problems not related to your heart can cause chest pain. These include: Musculoskeletal. Costochondritis is an inflammation of the tissues around the ribs that can occur from trauma or overuse injuries, or a strain of the muscles of the chest wall Respiratory. Pneumonia, collapsed lung (pneumothorax), or inflammation of the lining of the chest and lungs (pleurisy) Gastrointestinal. Esophageal reflux, heartburn, ulcers, or gallbladder disease Anxiety and panic disorders Nerve compression and inflammation Rare miscellaneous problems such as aortic aneurysm (a swelling of the large artery coming out of the heart) or pulmonary embolism (a blood clot in the lungs) Home care After your visit, follow these recommendations: Rest today and avoid strenuous activity. Take any prescribed medicine as directed. 3 of 4 Discharge Instructions Be aware of any recurrent chest pain and notice any changes Follow-up care Follow up with your healthcare provider if you do not start to feel better within 24 hours, or as advised. Call 911 Call 911 if any of these occur: A change in the type of pain: if it feels different, becomes more severe, lasts longer, or begins to spread into your shoulder, arm, neck, jaw or back Shortness of breath or increased pain with breathing Weakness, dizziness, or fainting Rapid heart beat Crushing sensation in your chest When to seek medical advice Call your healthcare provider right away if any of the following occur: Cough with dark colored sputum (phlegm) or blood Fever of 100.4F (38C) or higher, or as directed by your healthcare provider Swelling, pain or redness in one leg 4 of 4 [facility] 06-25-2023 History of Present illness Narrative Subjective Patient ID: Diana Lee is a 53 y.o. female who presents for Neck Pain (NEW PATIENT, CHRONIC NECK PAIN FOR YEARS SINCE HIGHSCHOOL, SHE WAS ACTIVE WITH SPORTS, SHE ALSO HAD MIGRAINES THAT STARTED IN 1990, SHE HAD A MIGRAINE FOR 2 MONTH MIGRAINE THAT STARTED IN MARCH, SHE HAD VISION CHANGES WITH IT,PHYSICAL THERAPY YEARS AGO, CHIROPRACTIC ADJUSTMENTS, HOME TRACTION,)HOME STRETCHING.ALTERNATING ICE/HEAT, VOLTAREN GEL TEMPORARY RELIEF, TIZANIDINE HAS GIVEN HER THE MOST RELIEF SHE HASN'T HAD A MIGRAINE SINCE STARTING IT JUST MAKES HER REALLY DROWSY, SHE DIDN'T TAKE HER TIZANIDINE THIS AM SO SHE HAS A VERY MINIMAL HEADACHE THIS AM,NECK IS TIGHT FEELING, PAIN SCORE 3/10, ORT=3, FRANCISCA=14% DEP NO, SMOKING NO Yarely Lozaon CMA 06/25/23 8:15 AM Patient is a 53-year-old female. She presents today as a new patient with complaints of neck pain. She has a history of headaches. She has been having neck pain and headaches since high school. Recently she had a headache that was not resolved. She had a for 2 months. She had some optical migraines with it. She was started on a muscle relaxer and this has gotten better but she still has a lot of neck pain. Worse with looking up. Worse with turning her head. Worse with certain activities. She denies any radicular symptoms. No arm pain. She has intermittent numbness when she is sleeping but the main concern is her neck pain. This affects her ability to get comfortable. This affects her quality of life. This affects her activities. She has done therapy in the past without improvement. 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 She has used a multitude of [id number] medications including anti-inflammatory medications. These once again gave some improvement but not enough. She is currently on the muscle relaxer. This helps her headaches but not the neck pain. She is here today to discuss options. She continues to do home exercise program. She had recent MRI. Review of Systems Constitutional: Negative. HENT: Negative. Eyes: Negative. Respiratory: Negative. Cardiovascular: Negative. Gastrointestinal: Negative. Endocrine: Negative. Genitourinary: Negative. Musculoskeletal: Positive for arthralgias, myalgias, neck pain and neck stiffness. Skin: Negative. Allergic/Immunologic: Negative. Neurological: Positive for numbness. Hematological: Negative. Psychiatric/Behavioral: Negative. Objective Physical Exam Vitals and nursing note reviewed. Constitutional: Appearance: Normal appearance. HENT: Head: Normocephalic and atraumatic. Right Ear: External ear normal. Left Ear: External ear normal. Nose: Nose normal. Mouth/Throat: Pharynx: Oropharynx is clear. Eyes: Conjunctiva/sclera: Conjunctivae normal. Cardiovascular: Rate and Rhythm: Normal rate and regular rhythm. Pulses: Normal pulses. Pulmonary: Effort: Pulmonary effort is normal. No respiratory distress. Musculoskeletal: General: Normal range of motion. Cervical back: Normal range of motion. Comments: 5/5 upper extremity strength Negative Abel's Pain with compression of the cervical facet joints Increased neck pain with facet loading Skin: General: Skin is warm and dry. Neurological: General: No focal deficit present. Mental Status: She is alert and oriented to person, place, and time. Mental status is at baseline. Psychiatric: Mood and Affect: Mood normal. Behavior: Behavior normal. Thought Content: Thought content normal. Judgment: Judgment normal. Cervical MRI report and films reviewed. Patient brought a disc with her to the appointment. MRI scan done on 05/27/2023. C4-5 mild disc protrusion. C5-6 and C6-7 mild disc bulge with osteophyte complexes resulting in mild stenosis. C7-T1 unremarkable Assessment/Plan Diagnoses and all orders for this visit: Cervical spondylosis - Medial Nerve Branch Block; Future Cervical pain Myalgia Patient is a 53-year-old female with past medical history significant for neck pain, cervical spondylosis and headaches. She has historically trialed and failed all reasonable conservative treatments. Therapy did not give any long-term relief. She continues to try to do home exercises but it does not give her any long-term relief. rn acute care did not give any long-term relief. massage therapy did help but did not last [employer] and is very expensive for her. We reviewed her MRI. We discussed different options. At this time, I feel that a lot of her pain and some of her headaches are facet mediated. I recommended to patient bilateral C5-6 and C6-7 medial branch block under fluoroscopy for diagnostic purposes. Diagnosis-M47.812-cervical spondylosis. Procedure was discussed. Risk benefits were discussed. Medication hold including vitamins for 1 week was discussed. Patient will follow-up 2 weeks after the injection for reevaluation. Call clinic sooner if necessary. OARRS reviewed. documented in this encounter [facility] Work Phone: 06-25-2023 Instructions Anca Stratton RN - 06/25/2023 8:15 AM EDT Injection education completed written and verbally. documented in this encounter [facility] Work Phone: Evaluation note Diagnosis Onset Date Tick bite of back acute [facility] Work Phone: Evaluation note* Diagnosis Cervical spondylosis- Primary Cervical spondylosis without myelopathy Cervical pain Cervicalgia Myalgia Unspecified myalgia and myositis documented in this encounter [facility] Work Phone: Instructions* Name Dates Details Patient Instructions Indication:BMI 33.0-33.9,adult Start:06-Mar-2021 Instruction Type:Provider Instructions for Treatment How to Access Health Informa tion Online using Patient Portal and 3rd Libertarian Apps Indication:BMI 33.0-33.9,adult Start:06-Mar-2021 Instruction Type:Patient Education Patient Instructions Indication:BMI 33.0-33.9,adult Start:20-Feb-2021 Instruction Type:Provider Instructions for Treatment How to Access Health Informa tion Online using Patient Portal and 3rd Libertarian Apps Indication:BMI 33.0-33.9,adult Start:20-Feb-2021 Instruction Type:Patient Education Patient Instructions Indication:Nonsmoker Start:06-Jan-2021 Instruction Type:Provider Instructions for Treatment How to Access Health Informa tion Online using Patient Portal and 3rd Libertarian Apps Indication:Nonsmoker Start:06-Jan-2021 Instruction Type:Patient Education Patient Instructions Indication:Hypothyroidism Start:26-Dec-2020 Instruction Type:Provider Instructions for Treatment How to Access Health Informa tion Online using Patient Portal and 3rd Libertarian Apps Indication:Hypothyroidism Start:26-Dec-2020 Instruction Type:Patient Education How to access health informa tion online Indication:Fibromyalgia Start:15-Nov-2014 Instruction Type:Patient Education How to access health informa tion online - Detail Indication:Fibromyalgia Start:15-Nov-2014 Instruction Type:Patient Education Patient Instructions Indication:Fibromyalgia Start:15-Nov-2014 Instruction Type:Provider Instructions for Treatment Patient Instructions Indication:Fibromyalgia Start:08-Sep-2014 Instruction Type:Provider Instructions for Treatment How to access health informa tion online Indication:Abdominal pain, acute, left upper quadrant Start:03-Sep-2014 Instruction Type:Patient Education How to access health informa tion online - Detail Indication:Abdominal pain, acute, left upper quadrant Start:03-Sep-2014 Instruction Type:Patient Education Patient Instructions Indication:Abdominal pain, acute, left upper quadrant Start:03-Sep-2014 Instruction Type:Provider Instructions for Treatment Patient Instructions Indication:Screening for breast cancer Start:17-May-2014 Instruction Type:Provider Instructions for Treatment How to access health informa tion online Indication:Hypertension, benign Start:20-Apr-2014 Instruction Type:Patient Education How to access health informa tion online - Detail Indication:Hypertension, benign Start:20-Apr-2014 Instruction Type:Patient Education Patient Instructions Indication:Hypertension, benign Start:20-Apr-2014 Instruction Type:Provider Instructions for Treatment Patient Instructions Indication:Unspecified Diagnosis Start:06-Oct-2013 Instruction Type:Provider Instructions for Treatment Patient Instructions Indication:Anxiety Start:06-Aug-2013 Instruction Type:Provider Instructions for Treatment Patient Instructions Indication:Hypercholesteremia Start:06-Aug-2013 Instruction Type:Provider Instructions for Treatment Patient Instructions Indication:Neck pain Start:28-Apr-2013 Instruction Type:Provider Instructions for Treatment Patient Instructions Indication:Migraine Start:26-Jan-2013 Instruction Type:Provider Instructions for Treatment Patient Instructions Indication:Hypothyroidism Start:12-Sep-2012 Instruction Type:Provider Instructions for Treatment Patient Instructions Indication:Sinusitis, acute Start:13-Jun-2012 Instruction Type:Provider Instructions for Treatment Patient Instructions Indication:Hypertension, benign Start:14-Apr-2012 Instruction Type:Provider Instructions for Treatment [facility] Work Phone: Instructions* Name Dates Details Patient Instructions Indication:BMI 34.0-34.9,adult Start:02-Jun-2021 Instruction Type:Provider Instructions for Treatment How to Access Health Informa tion Online using Patient Portal and [employer] Libertarian Apps Indication:BMI 34.0-34.9,adult Start:02-Jun-2021 Instruction Type:Patient Education Patient Instructions Indication:BMI 33.0-33.9,adult Start:29-May-2021 Instruction Type:Provider Instructions for Treatment How to Access Health Informa tion Online using Patient Portal and 3rd Libert[employer] Apps Indication:BMI 33.0-33.9,adult Start:29-May-2021 Instruction Type:Patient Education Patient Instructions Indication:BMI 33.0-33.9,adult Start:06-Mar-2021 Instruction Type:Provider Instructions for Treatment How to Access Health Informa tion Online using Patient Portal and 3rd [employer] Apps Indication:BMI 33.0-33.9,adult Start:06-Mar-2021 Instruction Type:Patient Education Patient Instructions Indication:BMI 33.0-33.9,adult Start:20-Feb-2021 Instruction Type:Provider Instructions for Treatment How to Access Health Informa tion Online using Patient Portal and 3rd [employer] Apps Indication:BMI 33.0-33.9,adult Start:20-Feb-2021 Instruction Type:Patient Education Patient Instructions Indication:Nonsmoker Start:06-Jan-2021 Instruction Type:Provider Instructions for Treatment How to Access Health Informa tion Online using Patient Portal and 3rd [employer] Apps Indication:Nonsmoker Start:06-Jan-2021 Instruction Type:Patient Education Patient Instructions Indication:Hypothyroidism Start:26-Dec-2020 Instruction Type:Provider Instructions for Treatment How to Access Health Informa tion Online using Patient Portal and 3rd Libertarian Apps Indication:Hypothyroidism Start:26-Dec-2020 Instruction Type:Patient Education How to access health informa tion online Indication:Fibromyalgia Start:15-Nov-2014 Instruction Type:Patient Education How to access health informa tion online - Detail Indication:Fibromyalgia Start:15-Nov-2014 Instruction Type:Patient Education Patient Instructions Indication:Fibromyalgia Start:15-Nov-2014 Instruction Type:Provider Instructions for Treatment Patient Instructions Indication:Fibromyalgia Start:08-Sep-2014 Instruction Type:Provider Instructions for Treatment How to access health informa tion online Indication:Abdominal pain, acute, left upper quadrant Start:03-Sep-2014 Instruction Type:Patient Education How to access health informa tion online - Detail Indication:Abdominal pain, acute, left upper quadrant Start:03-Sep-2014 Instruction Type:Patient Education Patient Instructions Indication:Abdominal pain, acute, left upper quadrant Start:03-Sep-2014 Instruction Type:Provider Instructions for Treatment Patient Instructions Indication:Screening for breast cancer Start:17-May-2014 Instruction Type:Provider Instructions for Treatment How to access health informa tion online Indication:Hypertension, benign Start:20-Apr-2014 Instruction Type:Patient Education How to access health informa tion online - Detail Indication:Hypertension, benign Start:20-Apr-2014 Instruction Type:Patient Education Patient Instructions Indication:Hypertension, benign Start:20-Apr-2014 Instruction Type:Provider Instructions for Treatment Patient Instructions Indication:Unspecified Diagnosis Start:06-Oct-2013 Instruction Type:Provider Instructions for Treatment Patient Instructions Indication:Anxiety Start:06-Aug-2013 Instruction Type:Provider Instructions for Treatment Patient Instructions Indication:Hypercholesteremia Start:06-Aug-2013 Instruction Type:Provider Instructions for Treatment Patient Instructions Indication:Neck pain Start:28-Apr-2013 Instruction Type:Provider Instructions for Treatment Patient Instructions Indication:Migraine Start:26-Jan-2013 Instruction Type:Provider Instructions for Treatment Patient Instructions Indication:Hypothyroidism Start:12-Sep-2012 Instruction Type:Provider Instructions for Treatment Patient Instructions Indication:Sinusitis, acute Start:13-Jun-2012 Instruction Type:Provider Instructions for Treatment Patient Instructions Indication:Hypertension, benign Start:14-Apr-2012 Instruction Type:Provider Instructions for Treatment [facility] Work Phone: Instructions* Name Dates Details Patient Instructions Indication:BMI 34.0-34.9,adult Start:29-Aug-2021 Instruction Type:Provider Instructions for Treatment How to Access Health Informa tion Online using Patient Portal and [employer] Apps Indication:BMI 34.0-34.9,adult Start:29-Aug-2021 Instruction Type:Patient Education Patient Instructions Indication:BMI 34.0-34.9,adult Start:02-Jun-2021 Instruction Type:Provider Instructions for Treatment How to Access Health Informa tion Online using Patient Portal and [employer] Apps Indication:BMI 34.0-34.9,adult Start:02-Jun-2021 Instruction Type:Patient Education Patient Instructions Indication:BMI 33.0-33.9,adult Start:29-May-2021 Instruction Type:Provider Instructions for Treatment How to Access Health Informa tion Online using Patient Portal and [employer] Apps Indication:BMI 33.0-33.9,adult Start:29-May-2021 Instruction Type:Patient Education Patient Instructions Indication:BMI 33.0-33.9,adult Start:06-Mar-2021 Instruction Type:Provider Instructions for Treatment How to Access Health Informa tion Online using Patient Portal and 3rd [employer] Apps Indication:BMI 33.0-33.9,adult Start:06-Mar-2021 Instruction Type:Patient Education Patient Instructions Indication:BMI 33.0-33.9,adult Start:20-Feb-2021 Instruction Type:Provider Instructions for Treatment How to Access Health Informa tion Online using Patient Portal and 3rd [employer] Apps Indication:BMI 33.0-33.9,adult Start:20-Feb-2021 Instruction Type:Patient Education Patient Instructions Indication:Nonsmoker Start:06-Jan-2021 Instruction Type:Provider Instructions for Treatment How to Access Health Informa tion Online using Patient Portal and 3rd [employer] Apps Indication:Nonsmoker Start:06-Jan-2021 Instruction Type:Patient Education Patient Instructions Indication:Hypothyroidism Start:26-Dec-2020 Instruction Type:Provider Instructions for Treatment How to Access Health Informa tion Online using Patient Portal and 3rd [employer] Apps Indication:Hypothyroidism Start:26-Dec-2020 Instruction Type:Patient Education How to access health informa tion online Indication:Fibromyalgia Start:15-Nov-2014 Instruction Type:Patient Education How to access health informa tion online - Detail Indication:Fibromyalgia Start:15-Nov-2014 Instruction Type:Patient Education Patient Instructions Indication:Fibromyalgia Start:15-Nov-2014 Instruction Type:Provider Instructions for Treatment Patient Instructions Indication:Fibromyalgia Start:08-Sep-2014 Instruction Type:Provider Instructions for Treatment How to access health informa tion online Indication:Abdominal pain, acute, left upper quadrant Start:03-Sep-2014 Instruction Type:Patient Education How to access health informa tion online - Detail Indication:Abdominal pain, acute, left upper quadrant Start:03-Sep-2014 Instruction Type:Patient Education Patient Instructions Indication:Abdominal pain, acute, left upper quadrant Start:03-Sep-2014 Instruction Type:Provider Instructions for Treatment Patient Instructions Indication:Screening for breast cancer Start:17-May-2014 Instruction Type:Provider Instructions for Treatment How to access health informa tion online Indication:Hypertension, benign Start:20-Apr-2014 Instruction Type:Patient Education How to access health informa tion online - Detail Indication:Hypertension, benign Start:20-Apr-2014 Instruction Type:Patient Education Patient Instructions Indication:Hypertension, benign Start:20-Apr-2014 Instruction Type:Provider Instructions for Treatment Patient Instructions Indication:Unspecified Diagnosis Start:06-Oct-2013 Instruction Type:Provider Instructions for Treatment Patient Instructions Indication:Anxiety Start:06-Aug-2013 Instruction Type:Provider Instructions for Treatment Patient Instructions Indication:Hypercholesteremia Start:06-Aug-2013 Instruction Type:Provider Instructions for Treatment Patient Instructions Indication:Neck pain Start:28-Apr-2013 Instruction Type:Provider Instructions for Treatment Patient Instructions Indication:Migraine Start:26-Jan-2013 Instruction Type:Provider Instructions for Treatment Patient Instructions Indication:Hypothyroidism Start:12-Sep-2012 Instruction Type:Provider Instructions for Treatment Patient Instructions Indication:Sinusitis, acute Start:13-Jun-2012 Instruction Type:Provider Instructions for Treatment Patient Instructions Indication:Hypertension, benign Start:14-Apr-2012 Instruction Type:Provider Instructions for Treatment [facility] Work Phone: Instructions* Name Dates Details Patient Instructions Indication:BMI 34.0-34.9,adult Start:29-Aug-2021 Instruction Type:Provider Instructions for Treatment How to Access Health Informa tion Online using Patient Portal and 3rd [employer] Apps Indication:BMI 34.0-34.9,adult Start:29-Aug-2021 Instruction Type:Patient Education Patient Instructions Indication:BMI 34.0-34.9,adult Start:02-Jun-2021 Instruction Type:Provider Instructions for Treatment How to Access Health Informa tion Online using Patient Portal and 3rd [employer] Apps Indication:BMI 34.0-34.9,adult Start:02-Jun-2021 Instruction Type:Patient Education Patient Instructions Indication:BMI 33.0-33.9,adult Start:29-May-2021 Instruction Type:Provider Instructions for Treatment How to Access Health Informa tion Online using Patient Portal and 3rd [employer] Apps Indication:BMI 33.0-33.9,adult Start:29-May-2021 Instruction Type:Patient Education Patient Instructions Indication:BMI 33.0-33.9,adult Start:06-Mar-2021 Instruction Type:Provider Instructions for Treatment How to Access Health Informa tion Online using Patient Portal and 3rd [employer] Apps Indication:BMI 33.0-33.9,adult Start:06-Mar-2021 Instruction Type:Patient Education Patient Instructions Indication:BMI 33.0-33.9,adult Start:20-Feb-2021 Instruction Type:Provider Instructions for Treatment How to Access Health Informa tion Online using Patient Portal and [employer]rd [employer] Apps Indication:BMI 33.0-33.9,adult Start:20-Feb-2021 Instruction Type:Patient Education Patient Instructions Indication:Nonsmoker Start:06-Jan-2021 Instruction Type:Provider Instructions for Treatment How to Access Health Informa tion Online using Patient Portal and 3rd [employer] Apps Indication:Nonsmoker Start:06-Jan-2021 Instruction Type:Patient Education Patient Instructions Indication:Hypothyroidism Start:26-Dec-2020 Instruction Type:Provider Instructions for Treatment How to Access Health Informa tion Online using Patient Portal and [employer]rd [employer] Apps Indication:Hypothyroidism Start:26-Dec-2020 Instruction Type:Patient Education How to access health informa tion online Indication:Fibromyalgia Start:15-Nov-2014 Instruction Type:Patient Education How to access health informa tion online - Detail Indication:Fibromyalgia Start:15-Nov-2014 Instruction Type:Patient Education Patient Instructions Indication:Fibromyalgia Start:15-Nov-2014 Instruction Type:Provider Instructions for Treatment Patient Instructions Indication:Fibromyalgia Start:08-Sep-2014 Instruction Type:Provider Instructions for Treatment How to access health informa tion online Indication:Abdominal pain, acute, left upper quadrant Start:03-Sep-2014 Instruction Type:Patient Education How to access health informa tion online - Detail Indication:Abdominal pain, acute, left upper quadrant Start:03-Sep-2014 Instruction Type:Patient Education Patient Instructions Indication:Abdominal pain, acute, left upper quadrant Start:03-Sep-2014 Instruction Type:Provider Instructions for Treatment Patient Instructions Indication:Screening for breast cancer Start:17-May-2014 Instruction Type:Provider Instructions for Treatment How to access health informa tion online Indication:Hypertension, benign Start:20-Apr-2014 Instruction Type:Patient Education How to access health informa tion online - Detail Indication:Hypertension, benign Start:20-Apr-2014 Instruction Type:Patient Education Patient Instructions Indication:Hypertension, benign Start:20-Apr-2014 Instruction Type:Provider Instructions for Treatment Patient Instructions Indication:Unspecified Diagnosis Start:06-Oct-2013 Instruction Type:Provider Instructions for Treatment Patient Instructions Indication:Anxiety Start:06-Aug-2013 Instruction Type:Provider Instructions for Treatment Patient Instructions Indication:Hypercholesteremia Start:06-Aug-2013 Instruction Type:Provider Instructions for Treatment Patient Instructions Indication:Neck pain Start:28-Apr-2013 Instruction Type:Provider Instructions for Treatment Patient Instructions Indication:Migraine Start:26-Jan-2013 Instruction Type:Provider Instructions for Treatment Patient Instructions Indication:Hypothyroidism Start:12-Sep-2012 Instruction Type:Provider Instructions for Treatment Patient Instructions Indication:Sinusitis, acute Start:13-Jun-2012 Instruction Type:Provider Instructions for Treatment Patient Instructions Indication:Hypertension, benign Start:14-Apr-2012 Instruction Type:Provider Instructions for Treatment [facility]; [facility] Work Phone: Instructions* Name Dates Details Patient Instructions Indication:BMI 34.0-34.9,adult Start:29-Aug-2021 Instruction Type:Provider Instructions for Treatment How to Access Health Informa tion Online using Patient Portal and [employer]rd [employer] Indication:BMI 34.0-34.9,adult Start:29-Aug-2021 Instruction Type:Patient Education Patient Instructions Indication:BMI 34.0-34.9,adult Start:02-Jun-2021 Instruction Type:Provider Instructions for Treatment How to Access Health Informa tion Online using Patient Portal and [employer]rd [employer] Indication:BMI 34.0-34.9,adult Start:02-Jun-2021 Instruction Type:Patient Education Patient Instructions Indication:BMI 33.0-33.9,adult Start:29-May-2021 Instruction Type:Provider Instructions for Treatment How to Access Health Informa tion Online using Patient Portal and [employer]rd [employer] Apps Indication:BMI 33.0-33.9,adult Start:29-May-2021 Instruction Type:Patient Education Patient Instructions Indication:BMI 33.0-33.9,adult Start:06-Mar-2021 Instruction Type:Provider Instructions for Treatment How to Access Health Informa tion Online using Patient Portal and [employer]rd [employer] Indication:BMI 33.0-33.9,adult Start:06-Mar-2021 Instruction Type:Patient Education Patient Instructions Indication:BMI 33.0-33.9,adult Start:20-Feb-2021 Instruction Type:Provider Instructions for Treatment How to Access Health Informa tion Online using Patient Portal and [employer]rd [employer] Apps Indication:BMI 33.0-33.9,adult Start:20-Feb-2021 Instruction Type:Patient Education Patient Instructions Indication:Nonsmoker Start:06-Jan-2021 Instruction Type:Provider Instructions for Treatment How to Access Health Informa tion Online using Patient Portal and [employer]rd [employer] Apps Indication:Nonsmoker Start:06-Jan-2021 Instruction Type:Patient Education Patient Instructions Indication:Hypothyroidism Start:26-Dec-2020 Instruction Type:Provider Instructions for Treatment How to Access Health Informa tion Online using Patient Portal and [employer]rd [employer] Apps Indication:Hypothyroidism Start:26-Dec-2020 Instruction Type:Patient Education How to access health informa tion online Indication:Fibromyalgia Start:15-Nov-2014 Instruction Type:Patient Education How to access health informa tion online - Detail Indication:Fibromyalgia Start:15-Nov-2014 Instruction Type:Patient Education Patient Instructions Indication:Fibromyalgia Start:15-Nov-2014 Instruction Type:Provider Instructions for Treatment Patient Instructions Indication:Fibromyalgia Start:08-Sep-2014 Instruction Type:Provider Instructions for Treatment How to access health informa tion online Indication:Abdominal pain, acute, left upper quadrant Start:03-Sep-2014 Instruction Type:Patient Education How to access health informa tion online - Detail Indication:Abdominal pain, acute, left upper quadrant Start:03-Sep-2014 Instruction Type:Patient Education Patient Instructions Indication:Abdominal pain, acute, left upper quadrant Start:03-Sep-2014 Instruction Type:Provider Instructions for Treatment Patient Instructions Indication:Screening for breast cancer Start:17-May-2014 Instruction Type:Provider Instructions for Treatment How to access health informa tion online Indication:Hypertension, benign Start:20-Apr-2014 Instruction Type:Patient Education How to access health informa tion online - Detail Indication:Hypertension, benign Start:20-Apr-2014 Instruction Type:Patient Education Patient Instructions Indication:Hypertension, benign Start:20-Apr-2014 Instruction Type:Provider Instructions for Treatment Patient Instructions Indication:Unspecified Diagnosis Start:06-Oct-2013 Instruction Type:Provider Instructions for Treatment Patient Instructions Indication:Anxiety Start:06-Aug-2013 Instruction Type:Provider Instructions for Treatment Patient Instructions Indication:Hypercholesteremia Start:06-Aug-2013 Instruction Type:Provider Instructions for Treatment Patient Instructions Indication:Neck pain Start:28-Apr-2013 Instruction Type:Provider Instructions for Treatment Patient Instructions Indication:Migraine Start:26-Jan-2013 Instruction Type:Provider Instructions for Treatment Patient Instructions Indication:Hypothyroidism Start:12-Sep-2012 Instruction Type:Provider Instructions for Treatment Patient Instructions Indication:Sinusitis, acute Start:13-Jun-2012 Instruction Type:Provider Instructions for Treatment Patient Instructions Indication:Hypertension, benign Start:14-Apr-2012 Instruction Type:Provider Instructions for Treatment [facility]; [facility] Work Phone: Instructions* Name Dates Details Patient Instructions Indication:Nonsmoker Start:06-Oct-2021 Instruction Type:Provider Instructions for Treatment How to Access Health Informa tion Online using Patient Portal and [employer] Apps Indication:Nonsmoker Start:06-Oct-2021 Instruction Type:Patient Education Patient Instructions Indication:BMI 34.0-34.9,adult Start:29-Aug-2021 Instruction Type:Provider Instructions for Treatment How to Access Health Informa tion Online using Patient Portal and [employer] Apps Indication:BMI 34.0-34.9,adult Start:29-Aug-2021 Instruction Type:Patient Education Patient Instructions Indication:BMI 34.0-34.9,adult Start:02-Jun-2021 Instruction Type:Provider Instructions for Treatment How to Access Health Informa tion Online using Patient Portal and [employer] Indication:BMI 34.0-34.9,adult Start:02-Jun-2021 Instruction Type:Patient Education Patient Instructions Indication:BMI 33.0-33.9,adult Start:29-May-2021 Instruction Type:Provider Instructions for Treatment How to Access Health Informa tion Online using Patient Portal and [employer] Indication:BMI 33.0-33.9,adult Start:29-May-2021 Instruction Type:Patient Education Patient Instructions Indication:BMI 33.0-33.9,adult Start:06-Mar-2021 Instruction Type:Provider Instructions for Treatment How to Access Health Informa tion Online using Patient Portal and [employer] Indication:BMI 33.0-33.9,adult Start:06-Mar-2021 Instruction Type:Patient Education Patient Instructions Indication:BMI 33.0-33.9,adult Start:20-Feb-2021 Instruction Type:Provider Instructions for Treatment How to Access Health Informa tion Online using Patient Portal and [employer]rd [employer] Indication:BMI 33.0-33.9,adult Start:20-Feb-2021 Instruction Type:Patient Education Patient Instructions Indication:Nonsmoker Start:06-Jan-2021 Instruction Type:Provider Instructions for Treatment How to Access Health Informa tion Online using Patient Portal and [employer] Indication:Nonsmoker Start:06-Jan-2021 Instruction Type:Patient Education Patient Instructions Indication:Hypothyroidism Start:26-Dec-2020 Instruction Type:Provider Instructions for Treatment How to Access Health Informa tion Online using Patient Portal and [employer] Indication:Hypothyroidism Start:26-Dec-2020 Instruction Type:Patient Education How to access health informa tion online Indication:Fibromyalgia Start:15-Nov-2014 Instruction Type:Patient Education How to access health informa tion online - Detail Indication:Fibromyalgia Start:15-Nov-2014 Instruction Type:Patient Education Patient Instructions Indication:Fibromyalgia Start:15-Nov-2014 Instruction Type:Provider Instructions for Treatment Patient Instructions Indication:Fibromyalgia Start:08-Sep-2014 Instruction Type:Provider Instructions for Treatment How to access health informa tion online Indication:Abdominal pain, acute, left upper quadrant Start:03-Sep-2014 Instruction Type:Patient Education How to access health informa tion online - Detail Indication:Abdominal pain, acute, left upper quadrant Start:03-Sep-2014 Instruction Type:Patient Education Patient Instructions Indication:Abdominal pain, acute, left upper quadrant Start:03-Sep-2014 Instruction Type:Provider Instructions for Treatment Patient Instructions Indication:Screening for breast cancer Start:17-May-2014 Instruction Type:Provider Instructions for Treatment How to access health informa tion online Indication:Hypertension, benign Start:20-Apr-2014 Instruction Type:Patient Education How to access health informa tion online - Detail Indication:Hypertension, benign Start:20-Apr-2014 Instruction Type:Patient Education Patient Instructions Indication:Hypertension, benign Start:20-Apr-2014 Instruction Type:Provider Instructions for Treatment Patient Instructions Indication:Unspecified Diagnosis Start:06-Oct-2013 Instruction Type:Provider Instructions for Treatment Patient Instructions Indication:Anxiety Start:06-Aug-2013 Instruction Type:Provider Instructions for Treatment Patient Instructions Indication:Hypercholesteremia Start:06-Aug-2013 Instruction Type:Provider Instructions for Treatment Patient Instructions Indication:Neck pain Start:28-Apr-2013 Instruction Type:Provider Instructions for Treatment Patient Instructions Indication:Migraine Start:26-Jan-2013 Instruction Type:Provider Instructions for Treatment Patient Instructions Indication:Hypothyroidism Start:12-Sep-2012 Instruction Type:Provider Instructions for Treatment Patient Instructions Indication:Sinusitis, acute Start:13-Jun-2012 Instruction Type:Provider Instructions for Treatment Patient Instructions Indication:Hypertension, benign Start:14-Apr-2012 Instruction Type:Provider Instructions for Treatment [facility]; [facility] Work Phone: Instructions* Name Dates Details Patient Instructions Indication:Nonsmoker Start:06-Oct-2021 Instruction Type:Provider Instructions for Treatment How to Access Health Informa tion Online using Patient Portal and [employer] Apps Indication:Nonsmoker Start:06-Oct-2021 Instruction Type:Patient Education Patient Instructions Indication:BMI 34.0-34.9,adult Start:29-Aug-2021 Instruction Type:Provider Instructions for Treatment How to Access Health Informa tion Online using Patient Portal and [employer]rd [employer] Apps Indication:BMI 34.0-34.9,adult Start:29-Aug-2021 Instruction Type:Patient Education Patient Instructions Indication:BMI 34.0-34.9,adult Start:02-Jun-2021 Instruction Type:Provider Instructions for Treatment How to Access Health Informa tion Online using Patient Portal and [employer] Apps Indication:BMI 34.0-34.9,adult Start:02-Jun-2021 Instruction Type:Patient Education Patient Instructions Indication:BMI 33.0-33.9,adult Start:29-May-2021 Instruction Type:Provider Instructions for Treatment How to Access Health Informa tion Online using Patient Portal and [employer] Apps Indication:BMI 33.0-33.9,adult Start:29-May-2021 Instruction Type:Patient Education Patient Instructions Indication:BMI 33.0-33.9,adult Start:06-Mar-2021 Instruction Type:Provider Instructions for Treatment How to Access Health Informa tion Online using Patient Portal and [employer] Apps Indication:BMI 33.0-33.9,adult Start:06-Mar-2021 Instruction Type:Patient Education Patient Instructions Indication:BMI 33.0-33.9,adult Start:20-Feb-2021 Instruction Type:Provider Instructions for Treatment How to Access Health Informa tion Online using Patient Portal and [employer] Apps Indication:BMI 33.0-33.9,adult Start:20-Feb-2021 Instruction Type:Patient Education Patient Instructions Indication:Nonsmoker Start:06-Jan-2021 Instruction Type:Provider Instructions for Treatment How to Access Health Informa tion Online using Patient Portal and [employer] Apps Indication:Nonsmoker Start:06-Jan-2021 Instruction Type:Patient Education Patient Instructions Indication:Hypothyroidism Start:26-Dec-2020 Instruction Type:Provider Instructions for Treatment How to Access Health Informa tion Online using Patient Portal and [employer] Apps Indication:Hypothyroidism Start:26-Dec-2020 Instruction Type:Patient Education How to access health informa tion online Indication:Fibromyalgia Start:15-Nov-2014 Instruction Type:Patient Education How to access health informa tion online - Detail Indication:Fibromyalgia Start:15-Nov-2014 Instruction Type:Patient Education Patient Instructions Indication:Fibromyalgia Start:15-Nov-2014 Instruction Type:Provider Instructions for Treatment Patient Instructions Indication:Fibromyalgia Start:08-Sep-2014 Instruction Type:Provider Instructions for Treatment How to access health informa tion online Indication:Abdominal pain, acute, left upper quadrant Start:03-Sep-2014 Instruction Type:Patient Education How to access health informa tion online - Detail Indication:Abdominal pain, acute, left upper quadrant Start:03-Sep-2014 Instruction Type:Patient Education Patient Instructions Indication:Abdominal pain, acute, left upper quadrant Start:03-Sep-2014 Instruction Type:Provider Instructions for Treatment Patient Instructions Indication:Screening for breast cancer Start:17-May-2014 Instruction Type:Provider Instructions for Treatment How to access health informa tion online Indication:Hypertension, benign Start:20-Apr-2014 Instruction Type:Patient Education How to access health informa tion online - Detail Indication:Hypertension, benign Start:20-Apr-2014 Instruction Type:Patient Education Patient Instructions Indication:Hypertension, benign Start:20-Apr-2014 Instruction Type:Provider Instructions for Treatment Patient Instructions Indication:Unspecified Diagnosis Start:06-Oct-2013 Instruction Type:Provider Instructions for Treatment Patient Instructions Indication:Anxiety Start:06-Aug-2013 Instruction Type:Provider Instructions for Treatment Patient Instructions Indication:Hypercholesteremia Start:06-Aug-2013 Instruction Type:Provider Instructions for Treatment Patient Instructions Indication:Neck pain Start:28-Apr-2013 Instruction Type:Provider Instructions for Treatment Patient Instructions Indication:Migraine Start:26-Jan-2013 Instruction Type:Provider Instructions for Treatment Patient Instructions Indication:Hypothyroidism Start:12-Sep-2012 Instruction Type:Provider Instructions for Treatment Patient Instructions Indication:Sinusitis, acute Start:13-Jun-2012 Instruction Type:Provider Instructions for Treatment Patient Instructions Indication:Hypertension, benign Start:14-Apr-2012 Instruction Type:Provider Instructions for Treatment [facility]; [facility] Work Phone: Instructions* Name Dates Details Patient Instructions Indication:History of migraine Start:11-May-2022 Instruction Type:Provider Instructions for Treatment How to Access Health Informa tion Online using Patient Portal and [employer]rd [employer] Apps Indication:History of migraine Start:11-May-2022 Instruction Type:Patient Education Patient Instructions Indication:Nonsmoker Start:06-Oct-2021 Instruction Type:Provider Instructions for Treatment How to Access Health Informa tion Online using Patient Portal and [employer] Apps Indication:Nonsmoker Start:06-Oct-2021 Instruction Type:Patient Education Patient Instructions Indication:BMI 34.0-34.9,adult Start:29-Aug-2021 Instruction Type:Provider Instructions for Treatment How to Access Health Informa tion Online using Patient Portal and [employer] Indication:BMI 34.0-34.9,adult Start:29-Aug-2021 Instruction Type:Patient Education Patient Instructions Indication:BMI 34.0-34.9,adult Start:02-Jun-2021 Instruction Type:Provider Instructions for Treatment How to Access Health Informa tion Online using Patient Portal and [employer]rd [employer] Apps Indication:BMI 34.0-34.9,adult Start:02-Jun-2021 Instruction Type:Patient Education Patient Instructions Indication:BMI 33.0-33.9,adult Start:29-May-2021 Instruction Type:Provider Instructions for Treatment How to Access Health Informa tion Online using Patient Portal and [employer]rd [employer] Apps Indication:BMI 33.0-33.9,adult Start:29-May-2021 Instruction Type:Patient Education Patient Instructions Indication:BMI 33.0-33.9,adult Start:06-Mar-2021 Instruction Type:Provider Instructions for Treatment How to Access Health Informa tion Online using Patient Portal and [employer] Apps Indication:BMI 33.0-33.9,adult Start:06-Mar-2021 Instruction Type:Patient Education Patient Instructions Indication:BMI 33.0-33.9,adult Start:20-Feb-2021 Instruction Type:Provider Instructions for Treatment How to Access Health Informa tion Online using Patient Portal and [employer]rd [employer] Apps Indication:BMI 33.0-33.9,adult Start:20-Feb-2021 Instruction Type:Patient Education Patient Instructions Indication:Nonsmoker Start:06-Jan-2021 Instruction Type:Provider Instructions for Treatment How to Access Health Informa tion Online using Patient Portal and [employer]rd [employer] Apps Indication:Nonsmoker Start:06-Jan-2021 Instruction Type:Patient Education Patient Instructions Indication:Hypothyroidism Start:26-Dec-2020 Instruction Type:Provider Instructions for Treatment How to Access Health Informa tion Online using Patient Portal and [employer]rd [employer] Apps Indication:Hypothyroidism Start:26-Dec-2020 Instruction Type:Patient Education How to access health informa tion online Indication:Fibromyalgia Start:15-Nov-2014 Instruction Type:Patient Education How to access health informa tion online - Detail Indication:Fibromyalgia Start:15-Nov-2014 Instruction Type:Patient Education Patient Instructions Indication:Fibromyalgia Start:15-Nov-2014 Instruction Type:Provider Instructions for Treatment Patient Instructions Indication:Fibromyalgia Start:08-Sep-2014 Instruction Type:Provider Instructions for Treatment How to access health informa tion online Indication:Abdominal pain, acute, left upper quadrant Start:03-Sep-2014 Instruction Type:Patient Education How to access health informa tion online - Detail Indication:Abdominal pain, acute, left upper quadrant Start:03-Sep-2014 Instruction Type:Patient Education Patient Instructions Indication:Abdominal pain, acute, left upper quadrant Start:03-Sep-2014 Instruction Type:Provider Instructions for Treatment Patient Instructions Indication:Screening for breast cancer Start:17-May-2014 Instruction Type:Provider Instructions for Treatment How to access health informa tion online Indication:Hypertension, benign Start:20-Apr-2014 Instruction Type:Patient Education How to access health informa tion online - Detail Indication:Hypertension, benign Start:20-Apr-2014 Instruction Type:Patient Education Patient Instructions Indication:Hypertension, benign Start:20-Apr-2014 Instruction Type:Provider Instructions for Treatment Patient Instructions Indication:Unspecified Diagnosis Start:06-Oct-2013 Instruction Type:Provider Instructions for Treatment Patient Instructions Indication:Anxiety Start:06-Aug-2013 Instruction Type:Provider Instructions for Treatment Patient Instructions Indication:Hypercholesteremia Start:06-Aug-2013 Instruction Type:Provider Instructions for Treatment Patient Instructions Indication:Neck pain Start:28-Apr-2013 Instruction Type:Provider Instructions for Treatment Patient Instructions Indication:Migraine Start:26-Jan-2013 Instruction Type:Provider Instructions for Treatment Patient Instructions Indication:Hypothyroidism Start:12-Sep-2012 Instruction Type:Provider Instructions for Treatment Patient Instructions Indication:Sinusitis, acute Start:13-Jun-2012 Instruction Type:Provider Instructions for Treatment Patient Instructions Indication:Hypertension, benign Start:14-Apr-2012 Instruction Type:Provider Instructions for Treatment [facility]; [facility] Work Phone: Instructions* Name Dates Details Patient Instructions Indication:History of migraine Start:11-May-2022 Instruction Type:Provider Instructions for Treatment How to Access Health Informa tion Online using Patient Portal and [employer]rd [employer] Apps Indication:History of migraine Start:11-May-2022 Instruction Type:Patient Education Patient Instructions Indication:Nonsmoker Start:06-Oct-2021 Instruction Type:Provider Instructions for Treatment How to Access Health Informa tion Online using Patient Portal and [employer] Apps Indication:Nonsmoker Start:06-Oct-2021 Instruction Type:Patient Education Patient Instructions Indication:BMI 34.0-34.9,adult Start:29-Aug-2021 Instruction Type:Provider Instructions for Treatment How to Access Health Informa tion Online using Patient Portal and [employer]rd [employer] Apps Indication:BMI 34.0-34.9,adult Start:29-Aug-2021 Instruction Type:Patient Education Patient Instructions Indication:BMI 34.0-34.9,adult Start:02-Jun-2021 Instruction Type:Provider Instructions for Treatment How to Access Health Informa tion Online using Patient Portal and [employer]rd [employer] Apps Indication:BMI 34.0-34.9,adult Start:02-Jun-2021 Instruction Type:Patient Education Patient Instructions Indication:BMI 33.0-33.9,adult Start:29-May-2021 Instruction Type:Provider Instructions for Treatment How to Access Health Informa tion Online using Patient Portal and [employer]rd [employer] Indication:BMI 33.0-33.9,adult Start:29-May-2021 Instruction Type:Patient Education Patient Instructions Indication:BMI 33.0-33.9,adult Start:06-Mar-2021 Instruction Type:Provider Instructions for Treatment How to Access Health Informa tion Online using Patient Portal and [employer] Indication:BMI 33.0-33.9,adult Start:06-Mar-2021 Instruction Type:Patient Education Patient Instructions Indication:BMI 33.0-33.9,adult Start:20-Feb-2021 Instruction Type:Provider Instructions for Treatment How to Access Health Informa tion Online using Patient Portal and [employer] Apps Indication:BMI 33.0-33.9,adult Start:20-Feb-2021 Instruction Type:Patient Education Patient Instructions Indication:Nonsmoker Start:06-Jan-2021 Instruction Type:Provider Instructions for Treatment How to Access Health Informa tion Online using Patient Portal and [employer] Apps Indication:Nonsmoker Start:06-Jan-2021 Instruction Type:Patient Education Patient Instructions Indication:Hypothyroidism Start:26-Dec-2020 Instruction Type:Provider Instructions for Treatment How to Access Health Informa tion Online using Patient Portal and [employer] Indication:Hypothyroidism Start:26-Dec-2020 Instruction Type:Patient Education How to access health informa tion online Indication:Fibromyalgia Start:15-Nov-2014 Instruction Type:Patient Education How to access health informa tion online - Detail Indication:Fibromyalgia Start:15-Nov-2014 Instruction Type:Patient Education Patient Instructions Indication:Fibromyalgia Start:15-Nov-2014 Instruction Type:Provider Instructions for Treatment Patient Instructions Indication:Fibromyalgia Start:08-Sep-2014 Instruction Type:Provider Instructions for Treatment How to access health informa tion online Indication:Abdominal pain, acute, left upper quadrant Start:03-Sep-2014 Instruction Type:Patient Education How to access health informa tion online - Detail Indication:Abdominal pain, acute, left upper quadrant Start:03-Sep-2014 Instruction Type:Patient Education Patient Instructions Indication:Abdominal pain, acute, left upper quadrant Start:03-Sep-2014 Instruction Type:Provider Instructions for Treatment Patient Instructions Indication:Screening for breast cancer Start:17-May-2014 Instruction Type:Provider Instructions for Treatment How to access health informa tion online Indication:Hypertension, benign Start:20-Apr-2014 Instruction Type:Patient Education How to access health informa tion online - Detail Indication:Hypertension, benign Start:20-Apr-2014 Instruction Type:Patient Education Patient Instructions Indication:Hypertension, benign Start:20-Apr-2014 Instruction Type:Provider Instructions for Treatment Patient Instructions Indication:Unspecified Diagnosis Start:06-Oct-2013 Instruction Type:Provider Instructions for Treatment Patient Instructions Indication:Anxiety Start:06-Aug-2013 Instruction Type:Provider Instructions for Treatment Patient Instructions Indication:Hypercholesteremia Start:06-Aug-2013 Instruction Type:Provider Instructions for Treatment Patient Instructions Indication:Neck pain Start:28-Apr-2013 Instruction Type:Provider Instructions for Treatment Patient Instructions Indication:Migraine Start:26-Jan-2013 Instruction Type:Provider Instructions for Treatment Patient Instructions Indication:Hypothyroidism Start:12-Sep-2012 Instruction Type:Provider Instructions for Treatment Patient Instructions Indication:Sinusitis, acute Start:13-Jun-2012 Instruction Type:Provider Instructions for Treatment Patient Instructions Indication:Hypertension, benign Start:14-Apr-2012 Instruction Type:Provider Instructions for Treatment [facility]; [facility] Work Phone: Instructions* Name Dates Details Patient Instructions Indication:History of migraine Start:11-May-2022 Instruction Type:Provider Instructions for Treatment How to Access Health Informa tion Online using Patient Portal and [employer]rd [employer] Indication:History of migraine Start:11-May-2022 Instruction Type:Patient Education Patient Instructions Indication:Nonsmoker Start:06-Oct-2021 Instruction Type:Provider Instructions for Treatment How to Access Health Informa tion Online using Patient Portal and [employer]rd [employer] Apps Indication:Nonsmoker Start:06-Oct-2021 Instruction Type:Patient Education Patient Instructions Indication:BMI 34.0-34.9,adult Start:29-Aug-2021 Instruction Type:Provider Instructions for Treatment How to Access Health Informa tion Online using Patient Portal and [employer]rd [employer] Apps Indication:BMI 34.0-34.9,adult Start:29-Aug-2021 Instruction Type:Patient Education Patient Instructions Indication:BMI 34.0-34.9,adult Start:02-Jun-2021 Instruction Type:Provider Instructions for Treatment How to Access Health Informa tion Online using Patient Portal and [employer]rd [employer] Apps Indication:BMI 34.0-34.9,adult Start:02-Jun-2021 Instruction Type:Patient Education Patient Instructions Indication:BMI 33.0-33.9,adult Start:29-May-2021 Instruction Type:Provider Instructions for Treatment How to Access Health Informa tion Online using Patient Portal and [employer]rd [employer] Apps Indication:BMI 33.0-33.9,adult Start:29-May-2021 Instruction Type:Patient Education Patient Instructions Indication:BMI 33.0-33.9,adult Start:06-Mar-2021 Instruction Type:Provider Instructions for Treatment How to Access Health Informa tion Online using Patient Portal and [employer]rd [employer] Apps Indication:BMI 33.0-33.9,adult Start:06-Mar-2021 Instruction Type:Patient Education Patient Instructions Indication:BMI 33.0-33.9,adult Start:20-Feb-2021 Instruction Type:Provider Instructions for Treatment How to Access Health Informa tion Online using Patient Portal and [employer]rd [employer] Apps Indication:BMI 33.0-33.9,adult Start:20-Feb-2021 Instruction Type:Patient Education Patient Instructions Indication:Nonsmoker Start:06-Jan-2021 Instruction Type:Provider Instructions for Treatment How to Access Health Informa tion Online using Patient Portal and [employer]rd [employer] Apps Indication:Nonsmoker Start:06-Jan-2021 Instruction Type:Patient Education Patient Instructions Indication:Hypothyroidism Start:26-Dec-2020 Instruction Type:Provider Instructions for Treatment How to Access Health Informa tion Online using Patient Portal and [employer]rd [employer] Apps Indication:Hypothyroidism Start:26-Dec-2020 Instruction Type:Patient Education How to access health informa tion online Indication:Fibromyalgia Start:15-Nov-2014 Instruction Type:Patient Education How to access health informa tion online - Detail Indication:Fibromyalgia Start:15-Nov-2014 Instruction Type:Patient Education Patient Instructions Indication:Fibromyalgia Start:15-Nov-2014 Instruction Type:Provider Instructions for Treatment Patient Instructions Indication:Fibromyalgia Start:08-Sep-2014 Instruction Type:Provider Instructions for Treatment How to access health informa tion online Indication:Abdominal pain, acute, left upper quadrant Start:03-Sep-2014 Instruction Type:Patient Education How to access health informa tion online - Detail Indication:Abdominal pain, acute, left upper quadrant Start:03-Sep-2014 Instruction Type:Patient Education Patient Instructions Indication:Abdominal pain, acute, left upper quadrant Start:03-Sep-2014 Instruction Type:Provider Instructions for Treatment Patient Instructions Indication:Screening for breast cancer Start:17-May-2014 Instruction Type:Provider Instructions for Treatment How to access health informa tion online Indication:Hypertension, benign Start:20-Apr-2014 Instruction Type:Patient Education How to access health informa tion online - Detail Indication:Hypertension, benign Start:20-Apr-2014 Instruction Type:Patient Education Patient Instructions Indication:Hypertension, benign Start:20-Apr-2014 Instruction Type:Provider Instructions for Treatment Patient Instructions Indication:Unspecified Diagnosis Start:06-Oct-2013 Instruction Type:Provider Instructions for Treatment Patient Instructions Indication:Anxiety Start:06-Aug-2013 Instruction Type:Provider Instructions for Treatment Patient Instructions Indication:Hypercholesteremia Start:06-Aug-2013 Instruction Type:Provider Instructions for Treatment Patient Instructions Indication:Neck pain Start:28-Apr-2013 Instruction Type:Provider Instructions for Treatment Patient Instructions Indication:Migraine Start:26-Jan-2013 Instruction Type:Provider Instructions for Treatment Patient Instructions Indication:Hypothyroidism Start:12-Sep-2012 Instruction Type:Provider Instructions for Treatment Patient Instructions Indication:Sinusitis, acute Start:13-Jun-2012 Instruction Type:Provider Instructions for Treatment Patient Instructions Indication:Hypertension, benign Start:14-Apr-2012 Instruction Type:Provider Instructions for Treatment [facility]; [facility] Work Phone: Instructions* Name Dates Details Patient Instructions Indication:Nonsmoker Start:29-Jun-2022 Instruction Type:Provider Instructions for Treatment How to Access Health Informa tion Online using Patient Portal and [employer]rd [employer] Apps Indication:Nonsmoker Start:29-Jun-2022 Instruction Type:Patient Education Patient Instructions Indication:History of migraine Start:11-May-2022 Instruction Type:Provider Instructions for Treatment How to Access Health Informa tion Online using Patient Portal and [employer] Apps Indication:History of migraine Start:11-May-2022 Instruction Type:Patient Education Patient Instructions Indication:Nonsmoker Start:06-Oct-2021 Instruction Type:Provider Instructions for Treatment How to Access Health Informa tion Online using Patient Portal and [employer] Apps Indication:Nonsmoker Start:06-Oct-2021 Instruction Type:Patient Education Patient Instructions Indication:BMI 34.0-34.9,adult Start:29-Aug-2021 Instruction Type:Provider Instructions for Treatment How to Access Health Informa tion Online using Patient Portal and [employer]rd [employer] Apps Indication:BMI 34.0-34.9,adult Start:29-Aug-2021 Instruction Type:Patient Education Patient Instructions Indication:BMI 34.0-34.9,adult Start:02-Jun-2021 Instruction Type:Provider Instructions for Treatment How to Access Health Informa tion Online using Patient Portal and [employer]rd [employer] Apps Indication:BMI 34.0-34.9,adult Start:02-Jun-2021 Instruction Type:Patient Education Patient Instructions Indication:BMI 33.0-33.9,adult Start:29-May-2021 Instruction Type:Provider Instructions for Treatment How to Access Health Informa tion Online using Patient Portal and [employer]rd [employer] Apps Indication:BMI 33.0-33.9,adult Start:29-May-2021 Instruction Type:Patient Education Patient Instructions Indication:BMI 33.0-33.9,adult Start:06-Mar-2021 Instruction Type:Provider Instructions for Treatment How to Access Health Informa tion Online using Patient Portal and [employer]rd [employer] Apps Indication:BMI 33.0-33.9,adult Start:06-Mar-2021 Instruction Type:Patient Education Patient Instructions Indication:BMI 33.0-33.9,adult Start:20-Feb-2021 Instruction Type:Provider Instructions for Treatment How to Access Health Informa tion Online using Patient Portal and [employer]rd [employer] Apps Indication:BMI 33.0-33.9,adult Start:20-Feb-2021 Instruction Type:Patient Education Patient Instructions Indication:Nonsmoker Start:06-Jan-2021 Instruction Type:Provider Instructions for Treatment How to Access Health Informa tion Online using Patient Portal and [employer]rd [employer] Apps Indication:Nonsmoker Start:06-Jan-2021 Instruction Type:Patient Education Patient Instructions Indication:Hypothyroidism Start:26-Dec-2020 Instruction Type:Provider Instructions for Treatment How to Access Health Informa tion Online using Patient Portal and [employer]rd [employer] Apps Indication:Hypothyroidism Start:26-Dec-2020 Instruction Type:Patient Education How to access health informa tion online Indication:Fibromyalgia Start:15-Nov-2014 Instruction Type:Patient Education How to access health informa tion online - Detail Indication:Fibromyalgia Start:15-Nov-2014 Instruction Type:Patient Education Patient Instructions Indication:Fibromyalgia Start:15-Nov-2014 Instruction Type:Provider Instructions for Treatment Patient Instructions Indication:Fibromyalgia Start:08-Sep-2014 Instruction Type:Provider Instructions for Treatment How to access health informa tion online Indication:Abdominal pain, acute, left upper quadrant Start:03-Sep-2014 Instruction Type:Patient Education How to access health informa tion online - Detail Indication:Abdominal pain, acute, left upper quadrant Start:03-Sep-2014 Instruction Type:Patient Education Patient Instructions Indication:Abdominal pain, acute, left upper quadrant Start:03-Sep-2014 Instruction Type:Provider Instructions for Treatment Patient Instructions Indication:Screening for breast cancer Start:17-May-2014 Instruction Type:Provider Instructions for Treatment How to access health informa tion online Indication:Hypertension, benign Start:20-Apr-2014 Instruction Type:Patient Education How to access health informa tion online - Detail Indication:Hypertension, benign Start:20-Apr-2014 Instruction Type:Patient Education Patient Instructions Indication:Hypertension, benign Start:20-Apr-2014 Instruction Type:Provider Instructions for Treatment Patient Instructions Indication:Unspecified Diagnosis Start:06-Oct-2013 Instruction Type:Provider Instructions for Treatment Patient Instructions Indication:Anxiety Start:06-Aug-2013 Instruction Type:Provider Instructions for Treatment Patient Instructions Indication:Hypercholesteremia Start:06-Aug-2013 Instruction Type:Provider Instructions for Treatment Patient Instructions Indication:Neck pain Start:28-Apr-2013 Instruction Type:Provider Instructions for Treatment Patient Instructions Indication:Migraine Start:26-Jan-2013 Instruction Type:Provider Instructions for Treatment Patient Instructions Indication:Hypothyroidism Start:12-Sep-2012 Instruction Type:Provider Instructions for Treatment Patient Instructions Indication:Sinusitis, acute Start:13-Jun-2012 Instruction Type:Provider Instructions for Treatment Patient Instructions Indication:Hypertension, benign Start:14-Apr-2012 Instruction Type:Provider Instructions for Treatment [facility]; [facility] Work Phone: Instructions* Name Dates Details Patient Instructions Indication:Nonsmoker Start:29-Jun-2022 Instruction Type:Provider Instructions for Treatment How to Access Health Informa tion Online using Patient Portal and [employer]rd [employer] Apps Indication:Nonsmoker Start:29-Jun-2022 Instruction Type:Patient Education Patient Instructions Indication:History of migraine Start:11-May-2022 Instruction Type:Provider Instructions for Treatment How to Access Health Informa tion Online using Patient Portal and [employer] Apps Indication:History of migraine Start:11-May-2022 Instruction Type:Patient Education Patient Instructions Indication:Nonsmoker Start:06-Oct-2021 Instruction Type:Provider Instructions for Treatment How to Access Health Informa tion Online using Patient Portal and [employer] Apps Indication:Nonsmoker Start:06-Oct-2021 Instruction Type:Patient Education Patient Instructions Indication:BMI 34.0-34.9,adult Start:29-Aug-2021 Instruction Type:Provider Instructions for Treatment How to Access Health Informa tion Online using Patient Portal and [employer] Apps Indication:BMI 34.0-34.9,adult Start:29-Aug-2021 Instruction Type:Patient Education Patient Instructions Indication:BMI 34.0-34.9,adult Start:02-Jun-2021 Instruction Type:Provider Instructions for Treatment How to Access Health Informa tion Online using Patient Portal and [employer]rd [employer] Apps Indication:BMI 34.0-34.9,adult Start:02-Jun-2021 Instruction Type:Patient Education Patient Instructions Indication:BMI 33.0-33.9,adult Start:29-May-2021 Instruction Type:Provider Instructions for Treatment How to Access Health Informa tion Online using Patient Portal and [employer]rd [employer] Apps Indication:BMI 33.0-33.9,adult Start:29-May-2021 Instruction Type:Patient Education Patient Instructions Indication:BMI 33.0-33.9,adult Start:06-Mar-2021 Instruction Type:Provider Instructions for Treatment How to Access Health Informa tion Online using Patient Portal and [employer]rd [employer] Apps Indication:BMI 33.0-33.9,adult Start:06-Mar-2021 Instruction Type:Patient Education Patient Instructions Indication:BMI 33.0-33.9,adult Start:20-Feb-2021 Instruction Type:Provider Instructions for Treatment How to Access Health Informa tion Online using Patient Portal and [employer]rd [employer] Apps Indication:BMI 33.0-33.9,adult Start:20-Feb-2021 Instruction Type:Patient Education Patient Instructions Indication:Nonsmoker Start:06-Jan-2021 Instruction Type:Provider Instructions for Treatment How to Access Health Informa tion Online using Patient Portal and [employer]rd [employer] Apps Indication:Nonsmoker Start:06-Jan-2021 Instruction Type:Patient Education Patient Instructions Indication:Hypothyroidism Start:26-Dec-2020 Instruction Type:Provider Instructions for Treatment How to Access Health Informa tion Online using Patient Portal and [employer] Apps Indication:Hypothyroidism Start:26-Dec-2020 Instruction Type:Patient Education How to access health informa tion online Indication:Fibromyalgia Start:15-Nov-2014 Instruction Type:Patient Education How to access health informa tion online - Detail Indication:Fibromyalgia Start:15-Nov-2014 Instruction Type:Patient Education Patient Instructions Indication:Fibromyalgia Start:15-Nov-2014 Instruction Type:Provider Instructions for Treatment Patient Instructions Indication:Fibromyalgia Start:08-Sep-2014 Instruction Type:Provider Instructions for Treatment How to access health informa tion online Indication:Abdominal pain, acute, left upper quadrant Start:03-Sep-2014 Instruction Type:Patient Education How to access health informa tion online - Detail Indication:Abdominal pain, acute, left upper quadrant Start:03-Sep-2014 Instruction Type:Patient Education Patient Instructions Indication:Abdominal pain, acute, left upper quadrant Start:03-Sep-2014 Instruction Type:Provider Instructions for Treatment Patient Instructions Indication:Screening for breast cancer Start:17-May-2014 Instruction Type:Provider Instructions for Treatment How to access health informa tion online Indication:Hypertension, benign Start:20-Apr-2014 Instruction Type:Patient Education How to access health informa tion online - Detail Indication:Hypertension, benign Start:20-Apr-2014 Instruction Type:Patient Education Patient Instructions Indication:Hypertension, benign Start:20-Apr-2014 Instruction Type:Provider Instructions for Treatment Patient Instructions Indication:Unspecified Diagnosis Start:06-Oct-2013 Instruction Type:Provider Instructions for Treatment Patient Instructions Indication:Anxiety Start:06-Aug-2013 Instruction Type:Provider Instructions for Treatment Patient Instructions Indication:Hypercholesteremia Start:06-Aug-2013 Instruction Type:Provider Instructions for Treatment Patient Instructions Indication:Neck pain Start:28-Apr-2013 Instruction Type:Provider Instructions for Treatment Patient Instructions Indication:Migraine Start:26-Jan-2013 Instruction Type:Provider Instructions for Treatment Patient Instructions Indication:Hypothyroidism Start:12-Sep-2012 Instruction Type:Provider Instructions for Treatment Patient Instructions Indication:Sinusitis, acute Start:13-Jun-2012 Instruction Type:Provider Instructions for Treatment Patient Instructions Indication:Hypertension, benign Start:14-Apr-2012 Instruction Type:Provider Instructions for Treatment [facility]; [facility] Work Phone: Instructions* Name Dates Details Patient Instructions Indication:Hypertension, benign Start:10-Aug-2022 Instruction Type:Provider Instructions for Treatment How to Access Health Informa tion Online using Patient Portal and [employer] Apps Indication:Hypertension, benign Start:10-Aug-2022 Instruction Type:Patient Education Patient Instructions Indication:Nonsmoker Start:29-Jun-2022 Instruction Type:Provider Instructions for Treatment How to Access Health Informa tion Online using Patient Portal and [employer] Apps Indication:Nonsmoker Start:29-Jun-2022 Instruction Type:Patient Education Patient Instructions Indication:History of migraine Start:11-May-2022 Instruction Type:Provider Instructions for Treatment How to Access Health Informa tion Online using Patient Portal and [employer] Apps Indication:History of migraine Start:11-May-2022 Instruction Type:Patient Education Patient Instructions Indication:Nonsmoker Start:06-Oct-2021 Instruction Type:Provider Instructions for Treatment How to Access Health Informa tion Online using Patient Portal and [employer] Apps Indication:Nonsmoker Start:06-Oct-2021 Instruction Type:Patient Education Patient Instructions Indication:BMI 34.0-34.9,adult Start:29-Aug-2021 Instruction Type:Provider Instructions for Treatment How to Access Health Informa tion Online using Patient Portal and [employer] Apps Indication:BMI 34.0-34.9,adult Start:29-Aug-2021 Instruction Type:Patient Education Patient Instructions Indication:BMI 34.0-34.9,adult Start:02-Jun-2021 Instruction Type:Provider Instructions for Treatment How to Access Health Informa tion Online using Patient Portal and [employer] Apps Indication:BMI 34.0-34.9,adult Start:02-Jun-2021 Instruction Type:Patient Education Patient Instructions Indication:BMI 33.0-33.9,adult Start:29-May-2021 Instruction Type:Provider Instructions for Treatment How to Access Health Informa tion Online using Patient Portal and [employer] Apps Indication:BMI 33.0-33.9,adult Start:29-May-2021 Instruction Type:Patient Education Patient Instructions Indication:BMI 33.0-33.9,adult Start:06-Mar-2021 Instruction Type:Provider Instructions for Treatment How to Access Health Informa tion Online using Patient Portal and [employer] Apps Indication:BMI 33.0-33.9,adult Start:06-Mar-2021 Instruction Type:Patient Education Patient Instructions Indication:BMI 33.0-33.9,adult Start:20-Feb-2021 Instruction Type:Provider Instructions for Treatment How to Access Health Informa tion Online using Patient Portal and [employer]rd [employer] Apps Indication:BMI 33.0-33.9,adult Start:20-Feb-2021 Instruction Type:Patient Education Patient Instructions Indication:Nonsmoker Start:06-Jan-2021 Instruction Type:Provider Instructions for Treatment How to Access Health Informa tion Online using Patient Portal and [employer] Apps Indication:Nonsmoker Start:06-Jan-2021 Instruction Type:Patient Education Patient Instructions Indication:Hypothyroidism Start:26-Dec-2020 Instruction Type:Provider Instructions for Treatment How to Access Health Informa tion Online using Patient Portal and [employer] Apps Indication:Hypothyroidism Start:26-Dec-2020 Instruction Type:Patient Education How to access health informa tion online Indication:Fibromyalgia Start:15-Nov-2014 Instruction Type:Patient Education How to access health informa tion online - Detail Indication:Fibromyalgia Start:15-Nov-2014 Instruction Type:Patient Education Patient Instructions Indication:Fibromyalgia Start:15-Nov-2014 Instruction Type:Provider Instructions for Treatment Patient Instructions Indication:Fibromyalgia Start:08-Sep-2014 Instruction Type:Provider Instructions for Treatment How to access health informa tion online Indication:Abdominal pain, acute, left upper quadrant Start:03-Sep-2014 Instruction Type:Patient Education How to access health informa tion online - Detail Indication:Abdominal pain, acute, left upper quadrant Start:03-Sep-2014 Instruction Type:Patient Education Patient Instructions Indication:Abdominal pain, acute, left upper quadrant Start:03-Sep-2014 Instruction Type:Provider Instructions for Treatment Patient Instructions Indication:Screening for breast cancer Start:17-May-2014 Instruction Type:Provider Instructions for Treatment How to access health informa tion online Indication:Hypertension, benign Start:20-Apr-2014 Instruction Type:Patient Education How to access health informa tion online - Detail Indication:Hypertension, benign Start:20-Apr-2014 Instruction Type:Patient Education Patient Instructions Indication:Hypertension, benign Start:20-Apr-2014 Instruction Type:Provider Instructions for Treatment Patient Instructions Indication:Unspecified Diagnosis Start:06-Oct-2013 Instruction Type:Provider Instructions for Treatment Patient Instructions Indication:Anxiety Start:06-Aug-2013 Instruction Type:Provider Instructions for Treatment Patient Instructions Indication:Hypercholesteremia Start:06-Aug-2013 Instruction Type:Provider Instructions for Treatment Patient Instructions Indication:Neck pain Start:28-Apr-2013 Instruction Type:Provider Instructions for Treatment Patient Instructions Indication:Migraine Start:26-Jan-2013 Instruction Type:Provider Instructions for Treatment Patient Instructions Indication:Hypothyroidism Start:12-Sep-2012 Instruction Type:Provider Instructions for Treatment Patient Instructions Indication:Sinusitis, acute Start:13-Jun-2012 Instruction Type:Provider Instructions for Treatment Patient Instructions Indication:Hypertension, benign Start:14-Apr-2012 Instruction Type:Provider Instructions for Treatment [facility]; [facility] Work Phone: Instructions* Name Dates Details Patient Instructions Indication:Hypertension, benign Start:10-Aug-2022 Instruction Type:Provider Instructions for Treatment How to Access Health Informa tion Online using Patient Portal and [employer] Indication:Hypertension, benign Start:10-Aug-2022 Instruction Type:Patient Education Patient Instructions Indication:Nonsmoker Start:29-Jun-2022 Instruction Type:Provider Instructions for Treatment How to Access Health Informa tion Online using Patient Portal and [employer] Indication:Nonsmoker Start:29-Jun-2022 Instruction Type:Patient Education Patient Instructions Indication:History of migraine Start:11-May-2022 Instruction Type:Provider Instructions for Treatment How to Access Health Informa tion Online using Patient Portal and 3rd Libertarian Apps Indication:History of migraine Start:11-May-2022 Instruction Type:Patient Education Patient Instructions Indication:Nonsmoker Start:06-Oct-2021 Instruction Type:Provider Instructions for Treatment How to Access Health Informa tion Online using Patient Portal and 3rd Libertarian Apps Indication:Nonsmoker Start:06-Oct-2021 Instruction Type:Patient Education Patient Instructions Indication:BMI 34.0-34.9,adult Start:29-Aug-2021 Instruction Type:Provider Instructions for Treatment How to Access Health Informa tion Online using Patient Portal and 3rd Libertarian Apps Indication:BMI 34.0-34.9,adult Start:29-Aug-2021 Instruction Type:Patient Education Patient Instructions Indication:BMI 34.0-34.9,adult Start:02-Jun-2021 Instruction Type:Provider Instructions for Treatment How to Access Health Informa tion Online using Patient Portal and 3rd [employer] Apps Indication:BMI 34.0-34.9,adult Start:02-Jun-2021 Instruction Type:Patient Education Patient Instructions Indication:BMI 33.0-33.9,adult Start:29-May-2021 Instruction Type:Provider Instructions for Treatment How to Access Health Informa tion Online using Patient Portal and 3rd Libertarian Apps Indication:BMI 33.0-33.9,adult Start:29-May-2021 Instruction Type:Patient Education Patient Instructions Indication:BMI 33.0-33.9,adult Start:06-Mar-2021 Instruction Type:Provider Instructions for Treatment How to Access Health Informa tion Online using Patient Portal and 3rd [employer] Apps Indication:BMI 33.0-33.9,adult Start:06-Mar-2021 Instruction Type:Patient Education Patient Instructions Indication:BMI 33.0-33.9,adult Start:20-Feb-2021 Instruction Type:Provider Instructions for Treatment How to Access Health Informa tion Online using Patient Portal and 3rd [employer] Apps Indication:BMI 33.0-33.9,adult Start:20-Feb-2021 Instruction Type:Patient Education Patient Instructions Indication:Nonsmoker Start:06-Jan-2021 Instruction Type:Provider Instructions for Treatment How to Access Health Informa tion Online using Patient Portal and 3rd Libert[employer] Apps Indication:Nonsmoker Start:06-Jan-2021 Instruction Type:Patient Education Patient Instructions Indication:Hypothyroidism Start:26-Dec-2020 Instruction Type:Provider Instructions for Treatment How to Access Health Informa tion Online using Patient Portal and 3rd Libert[employer] Apps Indication:Hypothyroidism Start:26-Dec-2020 Instruction Type:Patient Education How to access health informa tion online Indication:Fibromyalgia Start:15-Nov-2014 Instruction Type:Patient Education How to access health informa tion online - Detail Indication:Fibromyalgia Start:15-Nov-2014 Instruction Type:Patient Education Patient Instructions Indication:Fibromyalgia Start:15-Nov-2014 Instruction Type:Provider Instructions for Treatment Patient Instructions Indication:Fibromyalgia Start:08-Sep-2014 Instruction Type:Provider Instructions for Treatment How to access health informa tion online Indication:Abdominal pain, acute, left upper quadrant Start:03-Sep-2014 Instruction Type:Patient Education How to access health informa tion online - Detail Indication:Abdominal pain, acute, left upper quadrant Start:03-Sep-2014 Instruction Type:Patient Education Patient Instructions Indication:Abdominal pain, acute, left upper quadrant Start:03-Sep-2014 Instruction Type:Provider Instructions for Treatment Patient Instructions Indication:Screening for breast cancer Start:17-May-2014 Instruction Type:Provider Instructions for Treatment How to access health informa tion online Indication:Hypertension, benign Start:20-Apr-2014 Instruction Type:Patient Education How to access health informa tion online - Detail Indication:Hypertension, benign Start:20-Apr-2014 Instruction Type:Patient Education Patient Instructions Indication:Hypertension, benign Start:20-Apr-2014 Instruction Type:Provider Instructions for Treatment Patient Instructions Indication:Unspecified Diagnosis Start:06-Oct-2013 Instruction Type:Provider Instructions for Treatment Patient Instructions Indication:Anxiety Start:06-Aug-2013 Instruction Type:Provider Instructions for Treatment Patient Instructions Indication:Hypercholesteremia Start:06-Aug-2013 Instruction Type:Provider Instructions for Treatment Patient Instructions Indication:Neck pain Start:28-Apr-2013 Instruction Type:Provider Instructions for Treatment Patient Instructions Indication:Migraine Start:26-Jan-2013 Instruction Type:Provider Instructions for Treatment Patient Instructions Indication:Hypothyroidism Start:12-Sep-2012 Instruction Type:Provider Instructions for Treatment Patient Instructions Indication:Sinusitis, acute Start:13-Jun-2012 Instruction Type:Provider Instructions for Treatment Patient Instructions Indication:Hypertension, benign Start:14-Apr-2012 Instruction Type:Provider Instructions for Treatment [facility] Work Phone: Instructions* Name Dates Details How to Access Health Informa tion Online using Patient Portal and 3rd Libertarian Apps Indication:Nonsmoker Start:28-Sep-2022 Instruction Type:Patient Education Patient Instructions Indication:Nonsmoker Start:28-Sep-2022 Instruction Type:Provider Instructions for Treatment Patient Instructions Indication:Hypertension, benign Start:10-Aug-2022 Instruction Type:Provider Instructions for Treatment How to Access Health Informa tion Online using Patient Portal and 3rd Libertarian Apps Indication:Hypertension, benign Start:10-Aug-2022 Instruction Type:Patient Education Patient Instructions Indication:Nonsmoker Start:29-Jun-2022 Instruction Type:Provider Instructions for Treatment How to Access Health Informa tion Online using Patient Portal and 3rd [employer] Apps Indication:Nonsmoker Start:29-Jun-2022 Instruction Type:Patient Education Patient Instructions Indication:History of migraine Start:11-May-2022 Instruction Type:Provider Instructions for Treatment How to Access Health Informa tion Online using Patient Portal and [employer] Libertarian Apps Indication:History of migraine Start:11-May-2022 Instruction Type:Patient Education Patient Instructions Indication:Nonsmoker Start:06-Oct-2021 Instruction Type:Provider Instructions for Treatment How to Access Health Informa tion Online using Patient Portal and [employer]bridge Apps Indication:Nonsmoker Start:06-Oct-2021 Instruction Type:Patient Education Patient Instructions Indication:BMI 34.0-34.9,adult Start:29-Aug-2021 Instruction Type:Provider Instructions for Treatment How to Access Health Informa tion Online using Patient Portal and 3rd Libertarian Apps Indication:BMI 34.0-34.9,adult Start:29-Aug-2021 Instruction Type:Patient Education Patient Instructions Indication:BMI 34.0-34.9,adult Start:02-Jun-2021 Instruction Type:Provider Instructions for Treatment How to Access Health Informa tion Online using Patient Portal and 3rd Libertarian Apps Indication:BMI 34.0-34.9,adult Start:02-Jun-2021 Instruction Type:Patient Education Patient Instructions Indication:BMI 33.0-33.9,adult Start:29-May-2021 Instruction Type:Provider Instructions for Treatment How to Access Health Informa tion Online using Patient Portal and 3rd Libertarian Apps Indication:BMI 33.0-33.9,adult Start:29-May-2021 Instruction Type:Patient Education Patient Instructions Indication:BMI 33.0-33.9,adult Start:06-Mar-2021 Instruction Type:Provider Instructions for Treatment How to Access Health Informa tion Online using Patient Portal and 3rd Libertarian Apps Indication:BMI 33.0-33.9,adult Start:06-Mar-2021 Instruction Type:Patient Education Patient Instructions Indication:BMI 33.0-33.9,adult Start:20-Feb-2021 Instruction Type:Provider Instructions for Treatment How to Access Health Informa tion Online using Patient Portal and 3rd Libertarian Apps Indication:BMI 33.0-33.9,adult Start:20-Feb-2021 Instruction Type:Patient Education Patient Instructions Indication:Nonsmoker Start:06-Jan-2021 Instruction Type:Provider Instructions for Treatment How to Access Health Informa tion Online using Patient Portal and 3rd Libertarian Apps Indication:Nonsmoker Start:06-Jan-2021 Instruction Type:Patient Education Patient Instructions Indication:Hypothyroidism Start:26-Dec-2020 Instruction Type:Provider Instructions for Treatment How to Access Health Informa tion Online using Patient Portal and 3rd Libertarian Apps Indication:Hypothyroidism Start:26-Dec-2020 Instruction Type:Patient Education How to access health informa tion online Indication:Fibromyalgia Start:15-Nov-2014 Instruction Type:Patient Education How to access health informa tion online - Detail Indication:Fibromyalgia Start:15-Nov-2014 Instruction Type:Patient Education Patient Instructions Indication:Fibromyalgia Start:15-Nov-2014 Instruction Type:Provider Instructions for Treatment Patient Instructions Indication:Fibromyalgia Start:08-Sep-2014 Instruction Type:Provider Instructions for Treatment How to access health informa tion online Indication:Abdominal pain, acute, left upper quadrant Start:03-Sep-2014 Instruction Type:Patient Education How to access health informa tion online - Detail Indication:Abdominal pain, acute, left upper quadrant Start:03-Sep-2014 Instruction Type:Patient Education Patient Instructions Indication:Abdominal pain, acute, left upper quadrant Start:03-Sep-2014 Instruction Type:Provider Instructions for Treatment Patient Instructions Indication:Screening for breast cancer Start:17-May-2014 Instruction Type:Provider Instructions for Treatment How to access health informa tion online Indication:Hypertension, benign Start:20-Apr-2014 Instruction Type:Patient Education How to access health informa tion online - Detail Indication:Hypertension, benign Start:20-Apr-2014 Instruction Type:Patient Education Patient Instructions Indication:Hypertension, benign Start:20-Apr-2014 Instruction Type:Provider Instructions for Treatment Patient Instructions Indication:Unspecified Diagnosis Start:06-Oct-2013 Instruction Type:Provider Instructions for Treatment Patient Instructions Indication:Anxiety Start:06-Aug-2013 Instruction Type:Provider Instructions for Treatment Patient Instructions Indication:Hypercholesteremia Start:06-Aug-2013 Instruction Type:Provider Instructions for Treatment Patient Instructions Indication:Neck pain Start:28-Apr-2013 Instruction Type:Provider Instructions for Treatment Patient Instructions Indication:Migraine Start:26-Jan-2013 Instruction Type:Provider Instructions for Treatment Patient Instructions Indication:Hypothyroidism Start:12-Sep-2012 Instruction Type:Provider Instructions for Treatment Patient Instructions Indication:Sinusitis, acute Start:13-Jun-2012 Instruction Type:Provider Instructions for Treatment Patient Instructions Indication:Hypertension, benign Start:14-Apr-2012 Instruction Type:Provider Instructions for Treatment [facility] Work Phone: reason for referral (narrative)* Procedure (Routine) - Pending Review Specialty Diagnoses / Procedures Referred By Lottie groves Referred To Contact Diagnoses Cervical spondylosis Procedures Medial Nerve Branch Block Ngozi Llanes PA-C [address] [place] [id number] Referral ID Status Reason Start Date Expiration Date Visits Requested Visits Authorized [id number] Pending Review Perform Procedure 06/25/2023 06/24/2024 [address] [facility] Work Phone: Summary Purpose Family History No Family History Records FoundUnknown Family Member Name Dates Details Father Comments:htn, passed when pa tient was child Status:Active Mother Comments:spinal stenosis, ch ronic arthritis, htnmother is adopted but rumor that biologic father of colon ca Status:Active Paternal Grandfather Comments:Cardiac Status:Active Paternal Grandmother Status:Active Unknown Family Member Name Dates Details Father Comments:htn, passed when pa tient was child Status:Active Mother Comments:spinal stenosis, ch ronic arthritis, htnmother is adopted but rumor that biologic father of colon ca Status:Active Paternal Grandfather Comments:Cardiac Status:Active Paternal Grandmother Status:Active Unknown Family Member Name Dates Details Father Comments:htn, passed when pa tient was child Status:Active Mother Comments:spinal stenosis, ch ronic arthritis, htnmother is adopted but rumor that biologic father of colon ca Status:Active Paternal Grandfather Comments:Cardiac Status:Active Paternal Grandmother Status:Active Unknown Family Member Name Dates Details Father Comments:htn, passed when pa tient was child Status:Active Mother Comments:spinal stenosis, ch ronic arthritis, htnmother is adopted but rumor that biologic father of colon ca Status:Active Paternal Grandfather Comments:Cardiac Status:Active Paternal Grandmother Status:Active Unknown Family Member Name Dates Details Father Comments:htn, passed when pa tient was child Status:Active Mother Comments:spinal stenosis, ch ronic arthritis, htnmother is adopted but rumor that biologic father of colon ca Status:Active Paternal Grandfather Comments:Cardiac Status:Active Paternal Grandmother Status:Active Unknown Family Member Name Dates Details Father Comments:htn, passed when pa tient was child Status:Active Mother Comments:spinal stenosis, ch ronic arthritis, htnmother is adopted but rumor that biologic father of colon ca Status:Active Paternal Grandfather Comments:Cardiac Status:Active Paternal Grandmother Status:Active Unknown Family Member Name Dates Details Father Comments:htn, passed when pa tient was child Status:Active Mother Comments:spinal stenosis, ch ronic arthritis, htnmother is adopted but rumor that biologic father of colon ca Status:Active Paternal Grandfather Comments:Cardiac Status:Active Paternal Grandmother Status:Active Unknown Family Member Name Dates Details Father Comments:htn, passed when pa tient was child Status:Active Mother Comments:spinal stenosis, ch ronic arthritis, htnmother is adopted but rumor that biologic father of colon ca Status:Active Paternal Grandfather Comments:Cardiac Status:Active Paternal Grandmother Status:Active Unknown Family Member Name Dates Details Father Comments:htn, passed when pa tient was child Status:Active Mother Comments:spinal stenosis, ch ronic arthritis, htnmother is adopted but rumor that biologic father of colon ca Status:Active Paternal Grandfather Comments:Cardiac Status:Active Paternal Grandmother Status:Active Unknown Family Member Name Dates Details Father Comments:htn, passed when pa tient was child Status:Active Mother Comments:spinal stenosis, ch ronic arthritis, htnmother is adopted but rumor that biologic father of colon ca Status:Active Paternal Grandfather Comments:Cardiac Status:Active Paternal Grandmother Status:Active Unknown Family Member Name Dates Details Father Comments:htn, passed when pa tient was child Status:Active Mother Comments:spinal stenosis, ch ronic arthritis, htnmother is adopted but rumor that biologic father of colon ca Status:Active Paternal Grandfather Comments:Cardiac Status:Active Paternal Grandmother Status:Active Unknown Family Member Name Dates Details Father Comments:htn, passed when pa tient was child Status:Active Mother Comments:spinal stenosis, ch ronic arthritis, htnmother is adopted but rumor that biologic father of colon ca Status:Active Paternal Grandfather Comments:Cardiac Status:Active Paternal Grandmother Status:Active Unknown Family Member Name Dates Details Father Comments:htn, passed when pa tient was child Status:Active Mother Comments:spinal stenosis, ch ronic arthritis, htnmother is adopted but rumor that biologic father of colon ca Status:Active Paternal Grandfather Comments:Cardiac Status:Active Paternal Grandmother Status:Active Unknown Family Member Name Dates Details Father Comments:htn, passed when pa tient was child Status:Active Mother Comments:spinal stenosis, ch ronic arthritis, htnmother is adopted but rumor that biologic father of colon ca Status:Active Paternal Grandfather Comments:Cardiac Status:Active Paternal Grandmother Status:Active Unknown Family Member Name Dates Details Father Comments:htn, passed when pa tient was child Status:Active Mother Comments:spinal stenosis, ch ronic arthritis, htnmother is adopted but rumor that biologic father of colon ca Status:Active Paternal Grandfather Comments:Cardiac Status:Active Paternal Grandmother Status:Active Unknown Family Member Name Dates Details Father Comments:htn, passed when pa tient was child Status:Active Mother Comments:spinal stenosis, ch ronic arthritis, htnmother is adopted but rumor that biologic father of colon ca Status:Active Paternal Grandfather Comments:Cardiac Status:Active Paternal Grandmother Status:Active Relationship Condition Age at Onset Recorded Date/T kenny Not Specified Cardiac disease Unknown Malignant neoplasm Unknown Advance Directives No Advanced Directives Records Found Advance Directive Response Recorded Date/ Time Living Will No February 25 4 5:24pm Power of Rug Layer No February 25 014 5:24pm Chief Complaint and Reason for Visit Chief Complaint TICK BITE SPINAL STENOSIS HEADACHES Reason for Visit Tick bite of back Additional Source Comments INFORMATION SOURCE (unrecogn ized section and content) DATE CREATED AUTHOR 08/20/2017 [facility] ([place]) DATE CREATED AUTHOR AUTHOR'S ORGANIZ ATION 10/14/2018 [facility] DATE CREATED AUTHOR AUTHOR'S ORGANIZ ATION 01/30/2019 [facility] DATE CREATED AUTHOR AUTHOR'S ORGANIZ ATION 06/30/2022 [facility] DATE CREATED AUTHOR AUTHOR'S ORGANIZ ATION 06/26/2023 [facility] DATE CREATED AUTHOR AUTHOR'S ORGANIZ ATION 01/26/2024 [facility] DATE CREATED AUTHOR AUTHOR'S ORGANIZ ATION 11/17/2024 [facility] Care Teams (unrecognized sec tion and content) Team Status: Active Member Role Status Dates Dimitrios Mcpherson LEVELER, LEVELER-C Family Provider Active Dr. Shraddha Holley , DO Primary Care Provider Active Team Status: Inactive Member Role Status Dates Kirstin Rg , LEVELER-C Primary Care Provider, Referring Provider Active Antonette Lockwood , JOSELYN-C Attending Provider Active Team Status: Inactive Member Role Status Dates Dr. Shraddha Holley , DO Primary Care Pr ovider, Attending Provider, Referring Provider Active Cleaner Touch Up Worker Relationship Specialty Start Date End Date Dimitrios James, JAVA TECHNICAL ARCHITECT-CNM, JAVA TECHNICAL ARCHITECT-SENIOR ENVIRONMENTAL TECHNICIAN [id number] [id number] PCP - General 08/26/18 Goals (unrecognized section and content) Goals may be documented in a n alternate section Reason for Visit (unrecogniz ed section and content) Reason Comments Neck Pain NEW PATIENT, CHRONIC NECK PAIN FOR YEARS SINCE [employer], SHE WAS ACTIVE WITH SPORTS, SHE ALSO HAD MIGRAINES THAT STARTED IN 1990, SHE HAD A MIGRAINE FOR 2 MONTH MIGRAINE THAT STARTED IN MARCH, SHE HAD VISION CHANGES WITH IT,PHYSICAL THERAPY YEARS AGO, CHIROPRACTIC ADJUSTMENTS, HOME TRACTION, FOR RECORDS PERTAINING TO PATIENTS WHO ARE OR HAVE BEEN ENROLLED IN A CHEMICAL DEPENDENCY/SUBSTANCEABUSE PROGRAM, SOME INFORMATION MAY BE OMITTED. This clinical summary was aggregated from multiple sources. Caution should be exercised in using it in the provision of clinical care. This summary normalizes information from multiple sources, and as a consequence, information in this document may materially change the coding, format and clinical context of patient data. In addition, data may be omitted in some cases. CLINICAL DECISIONS SHOULD BE BASED ON THE PRIMARY CLINICAL RECORDS. [facility]. provides no warranty or guarantee of the accuracy or completeness of information in this document.
--- NOTE | 2024-11-19 18:20 | RAD_ITS ---
PROCEDURE: CHEST PA AND LATERAL 11/19/2024 REASON FOR EXAM: NONPRODUCTIVE COUGH, ILL X 3-WEEK TECHNIQUE: Procedure Code: RADCXR Modality: DX Procedure: CHEST PA AND LATERAL COMPARISON: 02/20/2021 FINDINGS: No appreciable airspace consolidation, pneumothorax or pleural effusion. Cardiac silhouette is normal in size. No vascular congestion. No significant osseous abnormality. RAD/Chest PA and Lateral IMPRESSION: No acute cardiopulmonary disease. Reading Location: [id number]
[2024-11-19 18:30] LABS: Hematocrit 46.7 % (37-47); Hemoglobin 15.9 g/dL (12.0-15.0); Immature Granulocytes Count 0.030 X10^3/uL (0.0-0.0); Mean Corp Hgb Conc 34.0 g/dL (32-36); Mean Corpuscular Volume 89.5 fL (81-99); Mean Platelet Vol. 9.5 fl (6.2-12.0); NRBC Flagged by Analyzer 0 % (0-5); Platelet Count 361 K/mm3 (150-450); RBC Distribution Width CV 13.4 % (11.6-14.6); RBC Distribution Width SD 44.2 fl (35.1-43.9); Red Blood Count 5.22 M/mm3 (4.2-5.4); White Blood Count 9.0 K/mm3 (4.4-11.0)
[2024-11-19 19:19] VITALS: BP 144/70; PULSE 71; O2SAT 100
[2024-11-19 19:21] LABS: Anion Gap 13 (5-15); BUN 9 mg/dL (4-19); BUN/Creat Ratio 12.6 RATIO (10-20); Calcium,Total 9.3 mg/dL (7.6-11.0); Carbon Dioxide 24.5 mmol/L (21.0-32.0); Chloride 102 mmol/L (98-108); Estimated Creatinine Clearance 103.75 ml/min (50-250); Glucose 84 mg/dL (70-99); Potassium 4.4 mmol/L (3.3-5.1)
--- NOTE | 2024-11-19 20:52 | EDS_ITS ---
HPI History of Present Illness Chief Complaint: General Illness Detail of Chief Complaint: Patient has been ill for 3 weeks complains of bodyaches Informant: patient and spouse/S.O. Onset/Context/Timing Onset: Weeks Context: Sudden Onset Timing: Continuous and Waxes and wanes Quality: Nonproductive cough, congestion initially, myalgias and arthralgias Current Severity: Mild Maximum Severity: Moderate Worsened by: Nothing Relieved by: Nothing Associated Symptoms Associated Symptoms: Flulike symptoms Narrative Narrative: Patient is a 54-year-old woman. She has history of hypertension, hypothyroidism and depression. She was seen earlier this year for tick bite. She was seen at urgent care November 16 for sinus congestion and prescribed Augmentin 875 mg tab 1 twice daily. She presents because of headache, congestion, nonproductive cough, myalgias and arthralgias. She states she has had no improvement since taking the Augmentin. She does complain of bilateral frontal headache. She denies photophobia. She denies ringing or ears decreased hearing. Denies drainage from ears. Denies chest pain, pressure, tightness or heaviness. She denies pleuritic chest pain. She denies abdominal pain, vomiting or diarrhea. She denies urologic symptoms. Prior similar symptoms: Yes Recent Illness/Hospitalization: No [facility] Medical History Depression History of gout HTN (hypertension) Hypothyroidism Back pain Home Medications ?Medication ?Instructions ?Recorded ?Last Taken ?Type fusuaqflne-vmsnoltzziool-lbparpqy 1 tab PO PRN PRN Maxwell/ Aches/Temp 02/25/13 Unknown History 50 mg-325 mg-40 mg tablet >=101 amlodipine 2.5 mg tablet mg PO 04/20/23 Unknown Histo ry cholecalciferol (vitamin D3) 125 125 mcg PO DAILY 03/29 06/18 Unknown History mcg (5,000 unit) capsule escitalopram oxalate 20 mg tablet mg PO 04/20/23 Unkno wn History estradiol 1 mg tablet mg PO 04/20/23 Unknown Histo ry lactobacillus combination no.9 4 4,000 mmu cells PO DA [place] 04/20/23 Unknown History billion cell capsule (Adult 50 Plus Probiotic) levothyroxine 25 mcg tablet mcg PO 04/20/23 Unknown Hi story lisinopril 40 mg tablet mg PO 04/20/23 Unknown Histo ry amoxicillin 875 mg-potassium 1 tab PO BID #20 tabs Unknown Rx clavulanate 125 mg tablet Allergy/AdvReac Type Severity Reaction Status Date / Time semaglutide Allergy Intermediate heart Verified 11/19/24 17:20 palpitations Family History Other Cancer Heart disease Surgical History History of hysterectomy History of bariatric surgery Social History Smoking Status: Never smoker alcohol intake: never substance use type: does not use ROS ROS ED Constitutional Constitutional ED: Denies chills, fever(s), subjective or sweats Eyes Eyes: Denies blurry vision or change in vision ENT ENT ED: Reports other Details: Congestion ; Denies ear pain, rhinorrhea or sore throat Cardiovascular Cardiovascular: Denies chest pain, orthopnea, palpitations or paroxysmal nocturnal dyspnea Respiratory/Chest Respiratory/Chest: Reports cough and dyspnea; Denies dyspnea on exertion, orthopnea, paroxysmal nocturnal dyspnea or sputum Gastrointestinal Gastrointestinal: Denies abdominal pain, diarrhea or vomiting Genitourinary Genitourinary ED: Denies dysuria, hematuria or urinary frequency Musculoskeletal Musculoskeletal: Denies arthralgias or myalgias Integumentary Denies abscess or rash Neurologic Neurologic: Denies headache(s) or paresthesias Psychiatric Psychiatric: Denies anxiety or depression Endocrine Endocrinology: Denies cold intolerance or heat intolerance Hematologic/Lymphatic Hematologic/Lymphatic: Reports systems reviewed and no addt'l complaints, except as documented EXAM Physical Exam Const Vital Signs: 11/19/24 17:20 11/19/24 19:19 Temperature 98.4 F Temperature Source Temporal Pulse Rate 89 71 Respiratory Rate 18 Blood Pressure 159/94 H 144/70 H Blood Pressure Mean 115 94 Pulse Ox 100 100 Oxygen Delivery Method Room Air Positive well nourished and well developed Constitutional Narrative: Patient appears ill but not toxic. General Appearance ED: well developed and NAD; Negative for cyanotic, diaphoretic or pallor HEENT Reports dry mucous membranes Mouth ED: Yes dry mucous membranes Mouth: dry mucous membranes Eyes PERRL and EOMs intact bilaterally General Eye ED: Negative for pale conjunctiva or scleral icterus Neck no lymphadenopathy, supple and no JVD Resp normal respiratory effort and clear to auscultation bilaterally Cardio regular rate, regular rhythm, S1 normal heart sound, S2 normal heart sound and no murmurs GI normal to inspection, nondistended, normoactive bowel sounds, non-tender, non- distended and no masses; Negative for hepatosplenomegaly Back/Spine no CVA tenderness Extremity normal to inspection General Extremety ED: Negative for edema or tenderness General Extremity: Negative for edema Neuro oriented x3, CN's II-XII intact bilaterally and no sensory deficits noted Sensorium / Orientation: alert Psych mental status grossly normal Skin no rashes or lesions noted, no wounds and skin turgor normal General Skin Exam: Negative for jaundice or pallor MDM MDM MDM Narrative Medical decision making narrative: Patient with flulike symptoms. She had symptoms 3 weeks. Since she has had s ymptoms 3 weeks we will get a chest x-ray since she has not had a x-ray with this illness. Because she has not improved in spite of antibiotics we will obtain blood work to assess white count differential, electrolyte function as well as rapid antigen for RSV and influenza. Note authored by SUZAN Field for urgent care visit November 16 was reviewed. History & Record Review Additional record(s) reviewed:: Prior outpatient record and Prior labs Lab Data Attestation: I reviewed the patient's lab results. Lab results narrative: CBC is normal. BMP is normal rapid antigen for COVID, RSV and influenza are negative. Labs: Laboratory Results - last 24 hr 11/19/24 18:18 WBC 9.0 RBC 5.22 Hgb 15.9 H Hct 46.7 MCV 89.5 MCH 30.5 MCHC 34.0 RDW Std Deviation 44.2 H RDW Coeff of Alejandro 13.4 Plt Count 361 MPV 9.5 Immature Gran % (Auto) 0.300 Neut % (Auto) 53.8 Lymph % (Auto) 37.1 [place] % (Auto) 6.3 Eos % (Auto) 1.9 Baso % (Auto) 0.6 Absolute Neuts (auto) 4.9 Absolute Lymphs (auto) 3.34 Nucleated RBC % 0 Sodium 139 Potassium 4.4 Chloride 102 Carbon Dioxide 24.5 Anion Gap 13 BUN 9 Creatinine 0.74 Estim Creat Clear Calc 103.75 Est GFR (MDRD) Non-Af 96 BUN/Creatinine Ratio 12.6 Glucose 84 Calcium 9.3 Radiography Chest X-Ray - ED: 2 View, Read by ED Physician, Normal, Heart, Lungs, Mediastinum, Bony Structures and No Acute Disease Diagnostic Testing: Clinical Impression(s) from Imaging Studies Chest X-Ray 11/19/24 18:20 IMPRESSION: No acute cardiopulmonary disease. Reading Location: [facility] Treatment and Re-Evaluation :: Patient states she feels better after IV fluids. Will discharge to home. She also received IV ketorolac. Discharge Plan Triage Chief Complaint: General Illness ED Provider: Lorenzo King Dx/Rx/DC Orders Clinical Impression: Viral syndrome, Acute dehydration, HTN (hypertension), Hypothyroidism, Adult BMI 38.0-38.9 kg/sq m Instructions: ED Viral Syndrome (Adult) Prescriptions: No Action lisinopril 40 mg tablet PO Patient Comments: TAKE 1 TABLET BY MOUTH ONCE DAILY amlodipine 2.5 mg tablet PO Patient Comments: TAKE 1 TABLET BY MOUTH ONCE DAILY estradiol 1 mg tablet PO Patient Comments: TAKE 1 TABLET BY MOUTH ONCE DAILY escitalopram oxalate 20 mg tablet PO Patient Comments: TAKE 1 TABLET BY MOUTH ONCE DAILY cholecalciferol (vitamin D3) 125 mcg (5,000 unit) capsule 125 mcg PO DAILY Adult 50 Plus Probiotic 4 billion cell capsule 4,000 mmu cells PO DAILY Rx Instructions: administer with a meal levothyroxine 25 mcg tablet PO Patient Comments: TAKE 1 TABLET BY MOUTH ONCE DAILY amoxicillin-pot clavulanate 875-125 mg tablet 1 tab PO BID Qty: 20 0RF gwfgcvejou-tbwrlfkwjjrwy-brop 1 TABLET tablet 1 tab PO PRN PRN (Reason: Maxwell/Aches/Temp >=101) Primary Care Provider: Shraddha Holley Referrals: Shraddha Holley DO [Primary Care Provider, Internal Medicine] - 1 Week if not i mproving Print Language: Spanish Disposition Disposition: Home, Self Care
[2024-11-19 21:14] VITALS: BP 132/90; PULSE 71; RESP 18; TEMP 36.8; O2SAT 97
== END 2024-11-19 21:15 | disposition home or self-care (01) ==
PROVIDERS: Emergency Provider Emergency Medicine; PCP Internal Medicine; Visit Provider Emergency Medicine
DX: B34.9 Viral infection, unspecified (principal); E86.0 Dehydration; I10 Essential (primary) hypertension; E03.9 Hypothyroidism, unspecified; Z79.890 Hormone replacement therapy; Z79.899 Other long term (current) drug therapy
CPT/HCPCS: 71046; 80048; 85025; 87631; 96361; 96374; 99284

== ENCOUNTER → 2024-12-03 | Outpatient (CLI) | payer BC, SELFPAY ==
[2024-12-03 19:48] LABS: AST(SGOT) 19 U/L (<=31); Alanine Aminotransfer ALT/SGPT 21 U/L (<=34); Albumin, Serum 4.1 g/dL (3.5-5.0); Alkaline Phosphatase 85 U/L (35-104); Anion Gap 11 (5-15); BUN 12 mg/dL (4-19); BUN/Creat Ratio 18.1 RATIO (10-20); CRP 10.40 mg/L (0.0-3.0); Calcium,Total 9.4 mg/dL (7.6-11.0); Carbon Dioxide 26.6 mmol/L (21.0-32.0); Chloride 103 mmol/L (98-108); Free T3 2.9 pg/mL (2.18-3.98); Globulin 3.1 g/dL (2.2-4.2); Glucose 85 mg/dL (70-99); Potassium 4.0 mmol/L (3.3-5.1); Vitamin B12 783 pg/mL (180-914); Vitamin D,25 Hydroxy 57.2 ng/mL (30-100)
[2024-12-16 11:08] LABS: Cortisol, Free 24Ur 26 ug/24 hr (6-42); Dopamine, 24Ur 147 ug/24 hr (0-510); Epinephrine, 24Ur < 6 ug/24 hr (0-20); Metanephrine, Ur 38 ug/L (Undefined); Metanephrines, 24Ur 71 ug/24 hr (36-209); Norepinephrine, 24Ur 41 ug/24 hr (0-135); Norepinephrine, Ur 22 ug/L (Undefined); Normetanephrines, 24Ur 446 ug/24 hr (131-612); Normetanephrines, Ur 237 ug/L (Undefined); VMA, 24UR 3.8 mg/24 hr (0.0-7.5); VMA, UR 2.0 mg/L (Undefined)
== END | disposition home or self-care (01) ==
PROVIDERS: PCP Internal Medicine; Referring Provider Internal Medicine; Visit Provider Internal Medicine
DX: E06.3 Autoimmune thyroiditis (principal); R53.82 Chronic fatigue, unspecified; R61 Generalized hyperhidrosis
CPT/HCPCS: 36415; 80053; 81050; 82306; 82384; 82530; 82607; 83835; 84439; 84443; 84481; 84585; 85652; 86140

== ENCOUNTER → 2024-12-05 | Outpatient (CLI) | payer BC, SELFPAY | END | disposition home or self-care (01) | LOC: LABSPEC 08:04 | PROVIDERS: PCP Internal Medicine; Referring Provider Internal Medicine; Visit Provider Internal Medicine | DX: R61 Generalized hyperhidrosis (principal) ==

== ENCOUNTER → 2025-01-16 | Outpatient (CLI) | payer BC, SELFPAY | END | disposition home or self-care (01) | LOC: LABSPEC 01-18 10:54 | PROVIDERS: PCP Internal Medicine; Visit Provider Physician Assistant | DX: R35.0 Frequency of micturition (principal) | CPT/HCPCS: 87086; 87088 ==

== ENCOUNTER 2025-02-13 19:01 | Emergency (ER) | payer BC, SELFPAY ==
[2025-02-13 19:01] VITALS: BP 140/95; PULSE 73; RESP 18; TEMP 36.9; O2SAT 100; BMI 39.1
--- NOTE | 2025-02-13 19:11 | CT_ITS ---
PROCEDURE: ABDOMEN/PELVIS W IV CONT ONLY 02/13/2025 REASON FOR EXAM: LEFT LOWER QUADRANT PAIN, HISTORY DIVERTICULOSIS TECHNIQUE: Procedure Code: [id number] Modality: CT Procedure: ABDOMEN/PELVIS W IV CONT ONLY Coronal and Sagittal reconstruction series were provided. CONTRAST: Isovue 370 VOLUME: 99 mL One or more dose reduction techniques were used (e.g., Automated exposure control, adjustment of the mA and/or kV according to patient size, use of iterative reconstruction technique. RADIATION DOSE SUMMARY: DLP: 1366.74 mGycm COMPARISON: None available. FINDINGS: Lower chest: Lung bases are clear. Dependent atelectasis. Liver: Normal size. Multiple subcentimeter hepatic hypodensity too small to further characterize but likely reflecting hepatic cysts. No enhancing lesion. Gallbladder and biliary ducts: Unremarkable gallbladder. Normal caliber intrahepatic and common bile ducts. Pancreas:Unremarkable. No ductal dilatation or mass. No peripancreatic fluid. Spleen: Unremarkable. Adrenal glands: Unremarkable. Kidneys and ureters: Normal renal size, morphology, and enhancement. No nephroureterolithiasis, hydronephrosis, or renal mass. Urinary bladder: Unremarkable. GI: Gastric sleeve. Unremarkable duodenum. Normal caliber small bowel and large bowel.There is diverticulosis predominantly involving the sigmoid and descending colon. At the descending colon, there is bowel wall thickening and pericolonic fat tissue stranding compatible with diverticulitis. No evidence of fluid collection. Appendix: Unremarkable. Peritoneum: No ascites. There is no free air in the peritoneum. Small fat containing umbilical hernia. Lymph nodes: No lymphadenopathy. Vasculature: Portal, splenic, and superior mesenteric veins are patent. No abdominal aortic aneurysm. Reproductive organs: Hysterectomy. No adnexal mass. Musculoskeletal and soft tissues: No aggressive osseous lesions. Degenerative changes of the lumbar spine.Unremarkable soft tissues. CT/Abdomen/Pelvis W IV Cont ONLY IMPRESSION: 1. Findings compatible with diverticulitis of the descending colon. No evidenc e of pericolonic abscess. 2. No bowel obstruction. Reading Location: [facility]
--- NOTE | 2025-02-13 19:17 | EDS_ITS ---
HPI History of Present Illness Chief Complaint: Abd Pain Detail of Chief Complaint: Abdominal pain that started February 09 Informant: patient Onset/Context/Timing Onset: Days Context: Sudden Onset Timing: Continuous Quality: Pain Location: Triage document a left upper quadrant patient points to left lower quadrant Current Severity: Mild Maximum Severity: Moderate Worsened by: Movement and eating Relieved by: Nothing Associated Symptoms Associated Symptoms: Nausea Narrative Narrative: Patient is a 54-year-old woman with history of hypertension, hypothyroidism, diverticulosis and gluten hypersensitivity. Patient states she has had a history of diverticulitis. There is no record of her being diagnosed with diverticulitis and [facility]. She was diagnosed at outside facility [facility]. Patient complains of subjective fever without chills. She denies upper respiratory tract infectious symptoms. She denies cardiac or respiratory symptoms. Patient complains of abdominal pain started Saturday and has gotten worse. She localizes the most intense pain in the left lower quadrant. She denies dysuria, frequency, urgency or hematuria. She denies history of renal ureterolithiasis. She denies urologic symptoms. She denies gynecologic symptoms. Prior similar symptoms: Yes (Diverticulitis) Recent Illness/Hospitalization: No [facility] Medical History (Updated 02/13/25 @ 20:[address] Lorenzo King MD) Diverticulitis Depression History of gout HTN (hypertension) Hypothyroidism Back pain Home Medications ?Medication ?Instructions ?Recorded ?Last Taken ?Type uoajftnoss-oisgpfdqwmchc-ghoxyqaf 1 tab PO PRN PRN Maxwell/ Aches/Temp 02/25/13 Unknown History 50 mg-325 mg-40 mg tablet >=101 amlodipine 2.5 mg tablet 5 mg PO DAILY 04/20/2302/13 History cholecalciferol (vitamin D3) 125 125 mcg PO DAILY 03/2902/13/25 History mcg (5,000 unit) capsule escitalopram oxalate 20 mg tablet 20 mg PO DAILY 04/2002/13/25 History estradiol 1 mg tablet 1 mg PO DAILY 04/20/2302/13 History lisinopril 40 mg tablet 40 mg PO DAILY 04/20/2301/26 History metoprolol tartrate 25 mg tablet 25 mg PO DAILY 02/13/25 History levothyroxine 25 mcg tablet 25 mcg PO DAILY #90 tabs 1 04/14/24 02/13/25 Rx amoxicillin 875 mg-potassium 875 mg (0.875 x 875-125 m g) PO 02/13/25 Unknown Rx clavulanate 125 mg tablet Q12H #20 TABLETS hydrocodone-acetaminophen 5-325mg 1 tab PO Q6H PRN PRN Pain 3 days 02/13/25 Unknown Rx 5mg-325mg #10 TABLETS vitamin B complex 1 tab PO DAILY 02/13/2501/26 History Allergy/AdvReac Type Severity Reaction Status Date / Time semaglutide Allergy Intermediate heart Verified 02/13/25 19:03 palpitations Family History Other Cancer Heart disease Surgical History History of hysterectomy History of bariatric surgery Social History Smoking Status: Never smoker alcohol intake: never substance use type: does not use ROS ROS ED Constitutional Constitutional ED: Reports fever(s) and subjective; Denies chills or sweats Eyes Eyes: Denies blurry vision ENT ENT ED: Denies ear pain, rhinorrhea or sore throat Cardiovascular Cardiovascular: Denies chest pain or palpitations Respiratory/Chest Respiratory/Chest: Denies cough, dyspnea or dyspnea on exertion Gastrointestinal Gastrointestinal: Reports abdominal pain and nausea; Denies constipation, diarrhea, melena or vomiting Genitourinary Genitourinary ED: Denies dysuria, hematuria or urinary frequency Musculoskeletal Musculoskeletal: Denies arthralgias, back pain or myalgias Integumentary Denies rash Hematologic/Lymphatic Hematologic/Lymphatic: Reports systems reviewed and no addt'l complaints, except as documented EXAM Physical Exam Const Vital Signs: 02/13/25 19:01 Temperature 98.4 F Temperature Source Oral Pulse Rate 73 Respiratory Rate 18 Blood Pressure 140/95 H Blood Pressure Mean 110 Pulse Ox 100 Oxygen Delivery Method Room Air Positive well nourished and well developed Constitutional Narrative: Blood pressure is elevated. Patient appears uncomfortable. She moves slowly because of the pain. General Appearance ED: well developed; Negative for cyanotic, diaphoretic or pallor HEENT Reports dry mucous membranes HEENT Narrative: Head is atraumatic and normocephalic. Ears are normal. Nares are patent. Mouth ED: Yes dry mucous membranes Mouth: dry mucous membranes Eyes PERRL and EOMs intact bilaterally General Eye ED: Negative for scleral icterus Neck no lymphadenopathy, supple and no JVD Resp normal respiratory effort and clear to auscultation bilaterally Cardio regular rate, regular rhythm, S1 normal heart sound, S2 normal heart sound and no murmurs GI non-distended and no masses; Negative for non-tender or hepatosplenomegaly GI Narrative: Difficult to assess her hepatosplenomegaly due to body habitus. BMI is 39.1 there is tenderness throughout. Maximal discomfort left lower quadrant with voluntary guarding and involuntary guarding Auscultation: hypoactive bowel sounds Back/Spine no CVA tenderness Extremity normal to inspection Neuro oriented x3, CN's II-XII intact bilaterally and no sensory deficits noted Sensorium / Orientation: alert Psych mental status grossly normal Skin no rashes or lesions noted, no wounds and skin turgor normal General Skin Exam: elasticity normal; Negative for jaundice or pallor MDM MDM MDM Narrative Medical decision making narrative: Differential diagnosis is abdominal pain of unknown etiology, diverticulitis, perforated viscus, diverticulitis with abscess, atypical presentation for obstructive uropathy, and IBS Lab Data Attestation: I reviewed the patient's lab results. Lab results narrative: CBC is unremarkable. There is a slight shift. White count is normal. Basic metabolic panel was glucose 146 with normal CO2 and a gap otherwise BMP is normal. Labs: Laboratory Results - last 24 hr 02/13/25 19:25 WBC 9.7 RBC 4.52 Hgb 13.5 Hct 40.9 MCV 90.5 MCH 29.9 MCHC 33.0 RDW Std Deviation 43.8 RDW Coeff of Alejandro 13.2 Plt Count 328 MPV 9.4 Immature Gran % (Auto) 0.500 Neut % (Auto) 76.5 H Lymph % (Auto) 16.7 L [place] % (Auto) 5.8 Eos % (Auto) 0.2 Baso % (Auto) 0.3 Absolute Neuts (auto) 7.4 Absolute Lymphs (auto) 1.61 Nucleated RBC % 0 Sodium 139 Potassium 3.8 Chloride 101 Carbon Dioxide 25.2 Anion Gap 12 BUN 9 Creatinine 0.76 Estim Creat Clear Calc 102.67 Est GFR (MDRD) Non-Af 94 BUN/Creatinine Ratio 12.2 Glucose 146 H Calcium 8.6 Radiography Diagnostic Testing: Clinical Impression(s) from Imaging Studies Abdomen/Pelvis CT 02/13/25 19:11 IMPRESSION: 1. Findings compatible with diverticulitis of the descending colon. No evidence of pericolonic abscess. 2. No bowel obstruction. Reading Location: [facility] CT revealed evidence of diverticulitis. There is no evidence of pneumoperitoneum. Treatment and Re-Evaluation :: Patient and were made aware of laboratory results and CT findings. Patient is a candidate for outpatient treatment. She is not have allergy penicillin therefore we will treat with Augmentin 875 mg. She received her first dose in the emergency department. She also will receive a prescription for pain medicine and appropriate home-going instructions. Discharge Plan Triage Chief Complaint: Abd Pain ED Provider: Lorenzo King Dx/Rx/DC Orders Clinical Impression: Diverticulitis of descending colon, HTN (hypertension) Instructions: ED Diverticulitis Prescriptions: New hydrocodone-acetaminophen 5-325 mg tablet 1 tab PO Q6H PRN PRN (Reason: Pain) 3 Days Qty: 10 0RF amoxicillin-pot clavulanate 875-125 mg tablet 875 mg PO Q12H Qty: 20 0RF No Action lisinopril 40 mg tablet 40 mg PO DAILY Patient Comments: TAKE 1 TABLET BY MOUTH ONCE DAILY amlodipine 2.5 mg tablet 5 mg PO DAILY Patient Comments: TAKE 1 TABLET BY MOUTH ONCE DAILY estradiol 1 mg tablet 1 mg PO DAILY Patient Comments: TAKE 1 TABLET BY MOUTH ONCE DAILY escitalopram oxalate 20 mg tablet 20 mg PO DAILY Patient Comments: TAKE 1 TABLET BY MOUTH ONCE DAILY cholecalciferol (vitamin D3) 125 mcg (5,000 unit) capsule 125 mcg PO DAILY metoprolol tartrate 25 mg tablet 25 mg PO DAILY byvtcfmjwx-cyddazihlxszt-fhvh 1 TABLET tablet 1 tab PO PRN PRN (Reason: Maxwell/Aches/Temp >=101) vitamin B complex Tablet 1 tab PO DAILY levothyroxine 25 mcg tablet 25 mcg PO DAILY Qty: 90 3RF Primary Care Provider: Shraddha Holley Referrals: Shraddha Holley DO [Primary Care Provider, Internal Medicine] - 3-5 Days Activity Restrictions/Additional Instructions: Return if you have a temperature greater than 100.5, shaking chills, unable to eat or drink anything, pain becomes significantly worse Print Language: Korean Disposition Disposition: Home, Self Care
[2025-02-13] MEDS: 0.9% Normal Saline (1000mL) 1,000 ML 1000 ML IV (19:27)
[2025-02-13 19:37] LABS: Hematocrit 40.9 % (37-47); Hemoglobin 13.5 g/dL (12.0-15.0); Immature Granulocytes Count 0.050 X10^3/uL (0.0-0.0); Mean Corp Hgb Conc 33.0 g/dL (32-36); Mean Corpuscular Volume 90.5 fL (81-99); Mean Platelet Vol. 9.4 fl (6.2-12.0); NRBC Flagged by Analyzer 0 % (0-5); Platelet Count 328 K/mm3 (150-450); RBC Distribution Width CV 13.2 % (11.6-14.6); RBC Distribution Width SD 43.8 fl (35.1-43.9); Red Blood Count 4.52 M/mm3 (4.2-5.4); White Blood Count 9.7 K/mm3 (4.4-11.0)
--- OUTSIDE RECORDS SUMMARY | 2025-02-13 19:40 | XMS RPT_ITS | CCD ---
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 Name Role Phone Anca Villatoro CNP Unavailable DO NOT USE Unavailable Doug Huffman MD Unavailable Stephy Wilson Unavailable Isaias Holliday MD Unavailable Sandee Osborne LPN Unavailable Unavailable Unavailable Unavailable Anca Villatoro Unavailable Howard Sorensen LPN Unavailable Unavailable Kirstin Rg CNP Unavailable Emerita OMER, Kayela Unavailable Unavailable Paris MESSER, Mohinder Gil Unavailable Kirstin Rg CNP Unavailable Hunter MESSER, Omar Unavailable Unavailable Unavailable Ashtyn Trammell LPN Unavailable Unavailable Doug Huffman MD Unavailable Kirstin Rg CNP Attending Unavailable Anca Villatoro Referring Unavailable Kirstin Rg CNP Consulting Unavailable Shraddha Holley DO Unavailable ANTONIETTA Rg Primary Care Provider ANTONIETTA Rg Referring Provider ANTONIETTA Lockwood Attending Provider [phone] Jacob SIMMONS, COREY-Dimitrios OMER Primary Care Provider NGOZI LLANES Attending Unavailable DIMITRIOS JAMES Primary Care Unavailable LUCIE PARTIDA DO Admitting Unavailable LUCIE PARTIDA DO Attending Unavailable LUCIE PARTIDA DO Primary Care Unavailable COLE PUGA Admitting Unavailable COLE PUGA Attending Unavailable COLE PUGA Primary Care Unavailable MANDY BELL Consulting Unavailable PROVIDER, UNKNOWN Consulting Unavailable PROVIDER, UNKNOWN Consulting Unavailable PROVIDER, UNKNOWN Consulting Unavailable LUCIE PARTIDA DO Admitting Unavailable DIDLUCIE CARRIZALES DO Attending Unavailable LUCIE PARTIDA DO Primary Care Unavailable MANDY BELL Consulting Unavailable PROVIDER, UNKNOWN Consulting Unavailable PROVIDER, UNKNOWN Consulting Unavailable PROVIDER, UNKNOWN Consulting Unavailable Leydi SADLER, Dr. Llanes Primary Care Physician Leydi SADLER, Dr. Llanes Referring Provider Isael James Attending Physician Fernando MESSER, Dr. Ventura Attending Physician [phone] Fernando MESSER, Dr. Ventura Emergency Department Physician Shraddha Holley Primary Care Unavailable Lorenzo King Attending Unavailable Kirstin Rg Attending Unavailable Kirstin Rg Referring Unavailable Shraddha Holley Primary Care Unavailable LeydiShraddha andrews Primary Care Unavailable Shraddha Holley Attending Unavailable Shraddha Holley Referring Unavailable LeydiShraddha andrews Referring Unavailable LeydiShraddha andrews Primary Care Unavailable LeydiShraddha andrews Attending Unavailable LeydiShraddha andrews Referring Unavailable Isael James Attending Unavailable Shraddha Holley Primary Care Unavailable Allergies Allergy Classification Reported Allergen(s) Allergy Type Date of Onset Reaction(s) Facility (2 sources) semaglutide Drug Allergy 5 heart palpitations [facility] Comment on above: Dizziness, passed ou t, SOB (1 source) semaglutide Drug allergy (disorder) 5 [facility] Repository Medications Current Medications Medication Drug Class(es) Dates Sig (Normalized) Sig (Original) amLODIPine 2.5 mg oral tablet (5 sources) Dihydropyridine Calcium Channel Dionisio Start: 04-20-2023 Amlodipine Active MG PO April 20, 2023 1:00am Start: 04-03-2023 Start: 09-28-2022 take 1 tablet by pinky th once daily amLODIPine 2.5 mg oral tablet 1 Tablet daily for 30 days Quantity: 30 {Tablet} Refills: 3 Ordered: 4-Aug-2023 Kirstin Rg CNP Start : 28-Sep-2022 Active amoxicillin 875 mg / clavula demar 125 mg oral tablet (20 sources) Penicillin-class Antibacterial Start: 11-16-2024 Start: 09-17-2013 End: 04-20-2014 take 1 tablet by mouth twice daily AUGMENTIN, 875-125MG (Oral Tablet) 1 Tablet Tablet bid for 0 days Quantity: 20 {Tablet} Refills: 0 Ordered: 20-Apr-2014 Cari Ochoa CMA Start : 17-Sep-2013 End : 20-Apr-2014 Inactive cholecalciferol 0.125 mg ora l capsule (20 sources) Vitamin D Start: 04-20-2023 take 1 capsule by mo uth once daily take 1 tablet by mouth every wee [...] MG PO April 20, 2023 1:00am Start: 03-06-2021 estradiol 1 mg oral tablet (9 sources) Estrogen Start: 04-20-2023 Start: 08-10-2022 take 1 tablet by pinky th once daily estradioL 1 mg oral tablet 1 Tablet daily for 0 days Quantity: 30 {Tablet} Refills: 5 Ordered: 10-Aug-2022 SlaAshtyn vance LPN Start : 10-Aug-2022 Active End: 08-10-2022 estradioL 0.01% (0.1 mg/gram ) vaginal cream twice weekly (0.01 % (0.1 mg/) End : 10-Aug-2022 Discontinued Lactobacillus Combination No .9 (Adult 50 Plus Probiotic) 4 billion cell capsule (3 sources) Start: 04-20-2023 take 4 capsules by m outh once daily Start: 04-20-2023 take 4 capsules by m outh once daily Lactobacillus Combination No.9 (Adult 50 Plus Probiotic) 4 billion cell capsule Active 4000 MMU CELLS PO DAILY April 20, 2023 1:00am administer with a meal levothyroxine sodium 0.025 m g oral tablet (20 sources) l-Thyroxine Start: 04-20-2023 Start: 04-20-2023 Levothyroxine Active MCG PO April 20, 2023 1:00am Start: 09-28-2022 take 1 capsule by [facility] once daily levothyroxine 25 mcg oral capsule 1 (one) capsule daily for 90 days Quantity: 90 {Capsule} Refills: 3 Ordered: 28-Sep-2022 Kirstin Rg CNP Start : 28-Sep-2022 Active Start: 09-26-2022 take 1 capsule by [facility] once daily levothyroxine 25 mcg oral capsule 1 (one) capsule daily for 30 days Quantity: 30 {Capsule} Refills: 0 Ordered: 26-Sep-2022 Kirstin Rg CNP Start : 26-Sep-2022 Active Start: 07-09-2022 take 1 capsule by [facility] once daily levothyroxine 25 mcg oral capsule 1 (one) capsule daily for 30 days Quantity: 30 {Capsule} Refills: 2 Ordered: 09-Jul-2022 Ashtyn Trammell LPN Start : 09-Jul-2022 Active Start: 10-06-2021 End: 05-11-2022 take 1 tablet by mouth once daily Euthyrox 125 mcg oral tablet 1 (one) Tablet ONCE A DAY for 90 days Quantity: 90 {Tablet} Refills: 0 Ordered: 11-May-2022 Ashtyn Trammell LPN Start : 06-Oct-2021 End : 11-May-2022 Inactive Start: 03-06-2021 End: 06-04-2021 take 1 tablet by mouth once daily Euthyrox 125 MCG Oral Tablet 1 (one) Tablet ONCE A DAY for 90 days Quantity: 90 {Tablet} Refills: 0 Ordered: 06-Mar-2021 Anca Villatoro Start : 06-Mar-2021 End : 04-Jun-2021 Inactive Start: 09-12-2012 End: 09-12-2012 take 1 tablet by mouth once daily SYNTHROID, 75MCG (Oral Tablet) 1 Tablet daily for 0 days Quantity: 30 {Tablet} Refills: 6 Ordered: 12-Sep-2012 Mohinder Wetzel MD Start : 12-Sep-2012 End : 12-Sep-2012 Discontinued levothyroxine (S ynthroid, Levoxyl) 125 mcg tablet once every 24 hours. Active lisinopril 40 mg oral tablet (8 sources) Angiotensin Converting Enzyme Inhibitor Start: 04-20-2023 Lisinopril Active MG PO April 20, 2023 1:00am Start: 04-03-2023 Start: 08-10-2022 take 1 tablet by pinky [...] Barbiturate, Central Nervous System Stimulant, Methylxanthine Start: 02-25-2013 butalbital-aceta minophen-caff 50-325-40 mg oral tablet uad Tablet prn as directed for migaine for 0 days Quantity: 30 {Tablet} Refills: 1 Ordered: 18-May-2022 Arcenio FISH PEDDLERKirstin Start : 18-May-2022 Active Comments: thirty Start: 02-25-2013 Butalbital-[place] taminophen-Caff Active 1 TABLET PO NEEDED February 25, 2013 1:00am Start: 08-08-2012 End: 01-26-2013 take 1 tablet by mouth once as needed FIORICET, 50-325-40MG (Oral Tablet) 1 Ta blet with headache prn for 0 days Quantity: 20 {Tablet} Refills: 0 Ordered: 08-Aug-2012 Mohinder Wetzel MD Start : 08-Aug-2012 End : 26-Jan-2013 Discontinued Comments: This order discontinued per [facility]. Comment on above: thirty This order discontin ued per [facility]. [id number] actuat albuterol 0.09 mg/actuat metered dose [...] prn for panic attack/anxiety (0.5 MG) Inactive ascorbic acid 1000 mg extended release [...] phan Comment on above: 05-04-13 called to Adebayo phan dexamethasone 1 mg oral tablet (19 sources) Corticosteroid Start : 01-06 End: 02-20 take 1 tablet by mouth every week Dexamethasone 1 MG Oral Tablet 1 (one) Tablet once a week for 0 days Quantity: 1 {Tablet} Refills: 0 Ordered: 20-Feb-2021 Radha Rousseau MA Start : 06-Jan-2021 End : 20-Feb-2021 Inactive doxycycline hyclate 100 mg oral capsule (3 sources) Tetracycline-class Drug Start : 04-20 End: 04-29 take 1 capsule by mouth twice daily Doxycycline Hyclate 100 mg capsule Discontinued 100 mg PO TWICE A DAY 20 10 0 April 20, 2023 1:00am April 29, 2023 1:00am April 30, 2023 1:04am glutathione 50 mg oral tablet (19 sources) take 1 tablet by mouth twice daily GLUTATHIONE, 50MG (Oral Tablet) 1 bid (50 MG) Inactive hydrALAZINE hydrochloride 10 mg oral tablet (3 sources) Arteriolar Vasodilator Start : 08-10 take 1 tablet by mouth every six [...] mg oral tablet (20 sources) Thiazide Diuretic Start : 02-25 End: 04-20 take 1 tablet by mouth once daily Hydrochlorothiazide 25 MG tablet Discontinued 25 mg PO DAILY February 25, 2013 1:00am April 20, 2023 12:49pm krill oil 300 mg oral capsule (19 sources) take 1 capsule by mouth once daily KRILL OIL OMEGA-3, 300MG (Oral Capsule) 1 qd (300 MG) Inactive L-GLUTAMINE (Powder) (19 sources) L-GLUTAMINE (Pow treasure) 5 grams qd at lunch Inactive ammonium lactate 120 mg/ml topical lotion (19 sources) Start : 04-14 End: 10-24 LAC-HYDRIN, 12% (External Lotion) 1 Lotion affected area daily for 0 days Quantity: 1 {Lotion} Refills: 0 Ordered: 24-Oct-2012 PETE Del Valle LPN Start : 14-Apr-2012 End : 24-Oct-2012 Inactive meloxicam 15 mg oral tablet (19 sources) Nonsteroidal Anti-inflammatory Drug Start : 04-28 End: 08-06 take 1 tablet by mouth once daily [...] oral tablet (19 sources) Proton Pump Inhibitor Start : 02-20 End: 10-06 take 1 tablet by mouth once daily Omeprazole 20 MG Oral Tablet Delayed Release 1 (one) Tablet daily for 0 days Quantity: 30 {Tablet} Refills: 0 Ordered: 06-Oct-2021 Howard Sorensen LPN Start : 20-Feb-2021 End : 06-Oct-2021 Inactive ondansetron 4 mg oral tablet (1 source) Serotonin-3 Receptor Antagonist Start : 09-28 take 1 tablet by mouth twice daily as needed for nausea ondansetron HCL 4 mg oral tablet 1 (one) tablet twice daily as needed for nausea for 0 days Quantity: 30 {Tablet} Refills: 1 Ordered: 28-Sep-2022 Kirstin Rg CNP Start : 28-Sep-2022 Active Comments: Medication taken as needed. Comment on above: Medication taken as needed. phenazopyridine hydrochloride 99.5 mg oral tablet (15 sources) take 1 mg by mouth once daily Phenazopyridine HCl 99.5 MG Oral Tablet Once a day. (99.5 MG) Inactive pramipexole dihydrochloride 0.125 mg oral tablet (20 sources) Nonergot Dopamine Agonist Start : 02-20 End: 03-06 take 1 tablet by mouth once daily [...] oral tablet (19 sources) Phenothiazine Start: 11-26-19 15 End: 12-27-19 21 take 1 tablet by mouth every eight hours as needed Promethazine HCl 25 MG Oral Tablet 1 (one) Tablet Tablet q 8 hours prn for 0 days Quantity: 20 {Tablet} Refills: 0 Ordered: 26-Dec-2020 Radha Rousseau MA Start : 25-Nov-2014 End : 26-Dec-2020 Inactive Comments: twenty Comment on above: twenty quinapril 20 mg oral tablet (20 sources) Angiotensin Converting Enzyme Inhibitor Start: 06-30-19 23 End: 07-07-19 23 take 1 tablet by mouth once daily AccupriL 20 mg oral tablet 1 Tablet daily for 0 days Quantity: 30 {Tablet} Refills: 3 Ordered: 06-Jul-2022 Jp GALVANAshtyn Start : 29-Jun-2022 End : 06-Jul-2022 Inactive Start: 02-25-2013 End: 04-20-2023 take 1 tablet by mouth once daily Quinapril Hcl (Accupril) 40 MG tablet Discontinued 40 mg PO DAILY February 25, 2013 1:00am April 20, 2023 12:49pm SELENIUM ER, 200MCG (Oral Tablet Extended Release) (19 sources) take 1 tablet by mouth once daily SELENIUM ER, 200MCG (Oral Tablet Extended Release) 1 qd (200 MCG) Inactive sulfacetamide sodium 100 mg/ml ophthalmic solution (19 sources) Sulfonamide Antibacterial Start: 02-03-20 15 End: 12-27-19 21 Bleph-10 10 % Ophthalmic Solution 1-2 Metric Drop q2-3 h for 7 days Quantity: 1 {Bottle} Refills: 3 Ordered: 26-Dec-2020 Radha Rousseau MA Start : 02-Feb-2015 End : 26-Dec-2020 Inactive sulfamethoxazole 800 mg / trimethoprim 160 mg oral tablet (16 sources) Dihydrofolate Reductase Inhibitor Antibacterial, Sulfonamide Antimicrobial Start: 06-03-19 22 End: 06-07-19 22 take 1 tablet by mouth twice daily Bactrim DS 800-160 MG Oral Tablet 1 (one) Tablet bid for 4 days Quantity: 8 {Tablet} Refills: 0 Ordered: 02-Jun-2021 Anca Villatoro Start : 02-Jun-2021 End : 06-Jun-2021 Inactive Super Multidophilus-34 (8 sources) Super Multidophilus-34 1 qd Active thyroid ([facility]) 60 mg oral tablet (20 sources) Start: 02-25-19 14 End: 04-20-19 24 Thyroid (Pork) ([place] Thyroid) 120 MG tablet Discontinued 120 mg PO MOTUWETHFR February 25, 2013 1:00am April 20, 2023 12:49pm Start: 02-25-2013 End: 04-20-2023 take 1 tablet by mouth once daily Thyroid (Pork) ([place] Thyroid) 60 MG tablet Discontinued 60 mg PO DAILY February 25, 2013 1:00am April [...] lisinopril to 40mg qd 08/10/22add amlodipine 2.5mg 8/4f/u 2 wksstarted lisinopril 20mg qd 07/06/22 Fluid and electrolyte disorders (2 sources) Dehydration; Translations: [Dehydration] 11-19-2024 Episodic Genitourinary symptoms and ill-defined conditions (20 sources) [...] estriadol--painful intercourse, dryness, no pruritis Mood disorders (3 sources) Depressive disorder; Translations: [Depression] 04-20-2023 Chronic Nausea [...] tissue disease (20 sources) Fibromyalgia; Translations: [Fibromyalgia] 01-10-2022 Episodic Other connective tissue disease (2 sources) [...] on above: had sleep study done before 2018 Other infections; including parasitic (20 sources) Personal [...] Comment on above: has gotten lost in r ecent past x 3, lost in grocery store [...] or follicultis keep exfoliating because helps Other skin disorders (1 source) Generalized hyperhidrosis; Translations: [Generalized hyperhidrosis] Onset: 5 Episodic Other upper respiratory disease (20 sources) Allergic rhinitis; Translations: [Allergic rhinitis] 03-06-2021 Chronic Other upper respiratory disease (1 source) Nasal congestion; Translations: [Nasal congestion] Onset: 5 Episodic Other upper respiratory infections (20 sources) Acute sinusitis; Translations: [Sinusitis, acute] Resolved: 3 02-04-2015 Episodic Residual codes; unclassified (20 sources) Flushing; Translations: [Flushing] 03-06-2021 Episodic Comment on above: gets flushing cream was helping bu t forgetting, wants oral therapy Residual codes; unclassified (20 sources) History of sleeve gastrectomy; Translations: [H/O gastric sleeve] 03-06-2021 Episodic Comment on above: Dec 2018 , Dr. Navi Gamble, [facility] bariat[facility] surgery [facility] Dec 2018 , Dr. Navi Gamble, [facility] bariat[facility] surgery center--23# wt gain in last 7 months since taking care of her mom, was down to 183# --23# wt gain in las t 7 months since taking care of her mom, was down to 183#, working on improving thatDec 2018 , Dr. Navi Gamble, [facility] bariat[facility] surgery center Residual codes; unclassified (20 [...] Chronic Comment on above: MRI 2013 per [facility] (see scanned image) MRI 04/07/2008: DDD [...] nerve root compression. 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 - I to macrobid S to cipro and vklj2pan she was treated iwth bactrim then needed more macrobid she had at home. good for a long while then UTI urgent care gave her macrobid 5 days now back. will do cipro for good 10 days knock it out of her. if systemic signs and symptoms will call Viral infection (2 sources) Viral disease; Translations: [Viral infection, unspecified] 11-19-2024 Episodic Past or Other Problems Problem Classification Problem [...] Test Name Value Interpretation Reference Range Facility Catecholamines, 24 URon 11-26 Dopamine, Urine 78 ug/L Normal Undefined [facility] Comment on above: Order Comment: Test( s) [id number], Urine; [id number]-Ntilniuitwmcxg, Ur; 095897-Npniyuos, Urinewas developed and its performance characteristicsdetermined by [facility]. It has not been cleared or approvedby the Food and Drug Administration. Performed By: #### L 3600.0800, L3600.1100, L3600.5400, L3600.0150 ####[facility] [address] [place], [address] Dopamine,U,24HR 147 ug/24 hr Normal 0-510 [facility] Comment on above: Order Comment: Test( s) [id number]-Contxotrpzt, Urine; 477456-Yxyfnhgjhslibe, Ur; 670541-Moyaccpv, Urinewas developed and its performance characteristicsdetermined by [facility] [employer] [facility] [employer]. It has not been cleared or approvedby the Food and Drug Administration. Result Comment: TESTING PERFORMED AT [facility]. ORIGINAL REPORT ON FILE IN LAB CONTAINS ADDITIONAL TEST SITE INFORMATION. Performed By: #### L 3600.0800, L3600.1100, L3600.5400, L3600.0150 ####[facility] [address] [place], [address] Epineph.,U,24HR < 6 Normal 0-20 [facility] Comment on above: Order Comment: Test( s) [id number]-Xlvbblolwrt, Urine; 370852-Vcsoofkqwhjvac, Ur; 093169-Tsufumqn, Urinewas developed and its performance characteristicsdetermined by [facility]. It has not been cleared or approvedby the Food and Drug Administration. Performed By: #### L 3600.0800, L3600.1100, L3600.5400, L3600.0150 ####[facility] [address] [place], [address] Epinephrine, U < 3 Normal Undefined [facility] Comment on above: Order Comment: Test( s) 585373-Pvnoawvbcjl, Urine; 760056-Ocghibsjwdjprj, Ur; 685974-Lzhhagpf, Urinewas developed and its performance characteristicsdetermined by [facility]. It has not been cleared or approvedby the Food and Drug Administration. Performed By: #### L 3600.0800, L3600.1100, L3600.5400, L3600.0150 ####[facility] [address] [place], [address] Norepin.,U,24HR 41 ug/24 hr Normal 0-135 [facility] Comment on above: Order Comment: Test( s) [id number]-Zjtqwpykovz, Urine; 720058-Qcwkimjlhsxtey, Ur; 180393-Fppllfum, Urinewas developed and its performance characteristicsdetermined by [facility]. It has not been cleared or approvedby the Food and Drug Administration. Performed By: #### L 3600.0800, L3600.1100, L3600.5400, L3600.0150 ####[facility] [address] [place], [address] Norepinephrin,U 22 ug/L Normal Undefined [facility] Comment on above: Order Comment: Test( s) 610400-Psmrytanagb, Urine; 702907-Fryouaizjojvlg, Ur; 853892-Vqwyllib, Urinewas developed and its performance characteristicsdetermined by [facility]. It has not been cleared or approvedby the Food and Drug Administration. Performed By: #### L 3600.0800, L3600.1100, L3600.5400, L3600.0150 ####[facility] [address] [place], [address] Cortisol, 24 HR UR Freeon CORTISOL,F/24hr 26 ug/24 hr Normal 6-42 [facility] Comment on above: Order Comment: Test( s) [id number]-Qwdboakfknc, Urine; 219757-Vpjxfctdohnmfw, Ur; 373512-Xquxcoqm, Urinewas developed and its performance characteristicsdetermined by [facility]. It has not been cleared or approvedby the Food and Drug Administration. Result Comment: Perf ormed at: - [facility] [id number] [employer]: Chandrika Richmond MD, Phone: [phone] Performed By: #### L 3600.0800, L3600.1100, L3600.5400, L3600.0150 ####[facility] [address] [place], [address] CORTISOL,U FREE 14 ug/L Normal Undefined [facility] Comment on above: Order Comment: Test( s) [id number]-Rsbbeejrfpr, Urine; 883661-Njncaqckijivtg, Ur; 747801-Fcxcahua, Urinewas developed and its performance characteristicsdetermined by [facility]. It has not been cleared or approvedby the Food and Drug Administration. Performed By: #### L 3600.0800, L3600.1100, L3600.5400, L3600.0150 ####[facility] [address] [place], [address] Metanephrine Frac 24 HR URon 12-16-2024 Metaneph,UR 24H 71 ug/24 hr Normal 36-209 [facility] Comment on above: Order Comment: Test( s) [id number]-Sehlxbsugau, Urine; 669914-Oekvziugpquhnb, Ur; 984561-Wjalxujh, Urinewas developed and its performance characteristicsdetermined by [facility]. It has not been cleared or approvedby the Food and Drug Administration. Performed By: #### L 3600.0800, L3600.1100, L3600.5400, L3600.0150 ####[facility] [address] [place], [address] Metanephrines,U 38 ug/L Normal Undefined [facility] Comment on above: Order Comment: Test( s) [id number]-Hwaklyvgrdw, Urine; 645887-Liojaznmtvjear, Ur; 126802-Vhlxqdpm, Urinewas developed and its performance characteristicsdetermined by [facility]. It has not been cleared or approvedby the Food and Drug Administration. Performed By: #### L 3600.0800, L3600.1100, L3600.5400, L3600.0150 ####[facility] [address] [place], [address] Normetan,UR 24h 446 ug/24 hr Normal 131-612 [facility] Comment on above: Order Comment: Test( s) [id number]-Ukrabtxomvp, Urine; 121162-Srcxszuzvupnex, Ur; 277473-Pybrrzjq, Urinewas developed and its performance characteristicsdetermined by [facility]. It has not been cleared or approvedby the Food and Drug Administration. Performed By: #### L 3600.0800, L3600.1100, L3600.5400, L3600.0150 ####[facility] [address] [place], [address] Normetanephrine 237 ug/L Normal Undefined [facility] Comment on above: Order Comment: Test( s) [id number]-Afyjybgdyzw, Urine; 991942-Jatmgnfudvbzor, Ur; 265941-Vuauwbrc, Urinewas developed and its performance characteristicsdetermined by [facility]. It has not been cleared or approvedby the Food and Drug Administration. Performed By: #### L 3600.0800, L3600.1100, L3600.5400, L3600.0150 ####[facility] [address] [place], [address] VMA, 24 HR URon 12-16-2024 VMA, Urine 2.0 mg/L Normal Undefined [facility] Comment on above: Order Comment: Test( s) 349003-Lvuoknllwbq, Urine; 248013-Xzqphgdptdkvlb, Ur; 872774-Xbyuxkop, Urinewas developed and its performance characteristicsdetermined by [email or web address]. It has not been cleared or approvedby the Food and Drug Administration. Performed By: #### L 3600.0800, L3600.1100, L3600.5400, L3600.0150 ####[facility] [address] [place], [address] VMA, Urine,24HR 3.8 mg/24 hr Normal 0.0-7.5 [facility] Comment on above: Order Comment: Test( s) [id number]-Xthokcdilmx, Urine; 169989-Ssnbidokbgckyv, Ur; 685690-Nliptqku, Urinewas developed and its performance characteristicsdetermined by [email or web address]. It has not been cleared or approvedby the Food and Drug Administration. Performed By: #### L 3600.0800, L3600.1100, L3600.5400, L3600.0150 ####[facility] [address] [place], [address] L3410.9992on 12-08-2024 [facility] Misc. COMMENT Normal . [facility] Comment on above: Order Comment: [id number] 8ANTI TPO AB SERUM RT Result Comment: Test Ordered: [id number] Anti-TPO Ab (RDL) Anti-TPO Ab (RDL) 155.4 [H ] IU/mL Travel DesiyaECF Reference Range: <9.0 Performed at: [facility] [place], [place] [id number] [employer]: Mayra Curiel MD, Phone: [phone] Performed at: [address] [id number] [employer]: Chico Castaneda PhD, Phone: [phone] Performed By: #### L 506.1001, L501.40683, L501.6710, L506.0400, L101.9900, L3410.9992, L500.4050, L501.9520, L503.0106 ####[facility] [address] [facility] [address] [place], [place], [id number] CRPon 12-03-2024 C-REACTIVE PROT 10.40 mg/L High 0.0-3.0 [facility] Comment on above: Performed By: #### L 506.1001, L501.68934, L501.6710, L506.0400, L101.9900, L3410.9992, L500.4050, L501.9520, L503.0106 #### [facility] [address] [place], [place], [id number] Comprehensive Metabolic Prof ilon 12-03-2024 Albumin [Mass/Vol] 4.1 g/dL Normal 3.5-5.[address] [facility] Comment on above: Performed By: #### L 506.1001, L501.83897, L501.6710, L506.0400, L101.9900, L3410.9992, L500.4050, L501.9520, L503.0106 #### [facility] [address] [place], [place], [id number] Albumin/Globulin [Mass ratio] 1.3 {ratio} Normal 0.9-2.4 [facility] Comment on above: Performed By: #### L 506.1001, L501.51743, L501.6710, L506.0400, L101.9900, L3410.9992, L500.4050, L501.9520, L503.0106 #### [facility] [address] [place], [address] ALK PHOS 85 U/L Normal 35-104 [facility] Comment on above: Performed By: #### L 506.1001, L501.06210, L501.6710, L506.0400, L101.9900, L3410.9992, L500.4050, L501.9520, L503.0106 #### [facility] [address] [place], [address] ALT [Catalytic activity/Vol] 21 U/L Normal <=34 [facility] Comment on above: Performed By: #### L 506.1001, L501.54734, L501.6710, L506.0400, L101.9900, L3410.9992, L500.4050, L501.9520, L503.0106 #### [facility] [address] [place], [address] AST [Catalytic activity/Vol] 19 U/L Normal <=31 [facility] Comment on above: Performed By: #### L 506.1001, L501.15906, L501.6710, L506.0400, L101.9900, L3410.9992, L500.4050, L501.9520, L503.0106 #### [facility] [address] [place], [address] Bilirubin [Mass/Vol] 0.30 mg/dL Normal 0.00-1.30 [facility] Comment on above: Performed By: #### L 506.1001, L501.72627, L501.6710, L506.0400, L101.9900, L3410.9992, L500.4050, L501.9520, L503.0106 #### [facility] [address] [place], [address] BUN/CRE 18.1 RATIO Normal 10-20 [facility] Comment on above: Performed By: #### L 506.1001, L501.50728, L501.6710, L506.0400, L101.9900, L3410.9992, L500.4050, L501.9520, L503.0106 #### [facility] [address] [place], [address] Calcium [Mass/Vol] 9.4 mg/dL Normal 7.6-11.[address] [facility] Comment on above: Performed By: #### L 506.1001, L501.57707, L501.6710, L506.0400, L101.9900, L3410.9992, L500.4050, L501.9520, L503.0106 #### [facility] [address] [place], [address] Chloride [Moles/Vol] 103 mmol/L Normal 98-108 [facility] Comment on above: Performed By: #### L 506.1001, L501.35201, L501.6710, L506.0400, L101.9900, L3410.9992, L500.4050, L501.9520, L503.0106 #### [facility] [address] [place], [address] CO2 [Moles/Vol] 26.6 mmol/L Normal 21.0-32.0 [facility] Comment on above: Performed By: #### L 506.1001, L501.99835, L501.6710, L506.0400, L101.9900, L3410.9992, L500.4050, L501.9520, L503.0106 #### [facility] [address] [place], [address] Creatinine [Mass/Vol] 0.68 mg/dL Low 0.70-1.20 [facility] Comment on above: Performed By: #### L 506.1001, L501.18407, L501.6710, L506.0400, L101.9900, L3410.9992, L500.4050, L501.9520, L503.0106 #### [facility] [address] [place], [place], [id number] (053) GAP 11 Normal 5-15 [facility] Comment on above: Performed By: #### L 506.1001, L501.59587, L501.6710, L506.0400, L101.9900, L3410.9992, L500.4050, L501.9520, L503.0106 #### [facility] [address] [place], [place], [id number] GFR/1.73 sq M.predicted among non-blacks MDRD (S/P/Bld) [Vol rate/Area] 104 mL/min/{1.73_m2} Normal >60 [facility] Comment on above: Result Comment: mL/m in/1.73m2 CKD-EPI Creatinine Equation (2020) Performed By: #### L 506.1001, L501.98887, L501.6710, L506.0400, L101.9900, L3410.9992, L500.4050, L501.9520, L503.0106 #### [facility] [address] [place], [place], [id number] (383) Globulin (S) [Mass/Vol] 3.1 g/dL Normal 2.2-4.2 [facility] Comment on above: Performed By: #### L 506.1001, L501.08255, L501.6710, L506.0400, L101.9900, L3410.9992, L500.4050, L501.9520, L503.0106 #### [facility] [address] [place], [address] Glucose [Mass/Vol] 85 mg/dL Normal 70-[address] [facility] Comment on above: Performed By: #### L 506.1001, L501.32879, L501.6710, L506.0400, L101.9900, L3410.9992, L500.4050, L501.9520, L503.0106 #### [facility] [address] [place], [address] Potassium [Moles/Vol] 4.0 mmol/L Normal 3.3-5.1 [facility] Comment on above: Performed By: #### L 506.1001, L501.15619, L501.6710, L506.0400, L101.9900, L3410.9992, L500.4050, L501.9520, L503.0106 #### [facility] [address] [place], [address] Sodium [Moles/Vol] 140 mmol/L Normal 133-[address] [facility] Comment on above: Performed By: #### L 506.1001, L501.64075, L501.6710, L506.0400, L101.9900, L3410.9992, L500.4050, L501.9520, L503.0106 #### [facility] [address] [place], [address] T PROT 7.1 g/dL Normal 5.9-8.4 [facility] Comment on above: Performed By: #### L 506.1001, L501.33274, L501.6710, L506.0400, L101.9900, L3410.9992, L500.4050, L501.9520, L503.0106 #### [facility] [address] [place], [address] Urea nitrogen [Mass/Vol] 12 mg/dL Normal 4-19 [facility] Comment on above: Performed By: #### L 506.1001, L501.10953, L501.6710, L506.0400, L101.9900, L3410.9992, L500.4050, L501.9520, L503.0106 #### [facility] [address] [place], [place], [address] Erythrocyte Sed Rateon 12-03 SED RATE 6 mm/hr Normal 0-30 [facility] Comment on above: Performed By: #### L 506.1001, L501.15463, L501.6710, L506.0400, L101.9900, L3410.9992, L500.4050, L501.9520, L503.0106 ####[facility] [address] [place], [place], [id number] Free T3on 12-03-2024 Free T3 [Mass/Vol] 2.9 pg/mL Normal 2.18-3.[address] [facility] Comment on above: Order Comment: N Performed By: #### L 506.1001, L501.51821, L501.6710, L506.0400, L101.9900, L3410.9992, L500.4050, L501.9520, L503.0106 #### [facility] [address] [place], [place], [address] T4 Free Directon 12-03-2024 T4 FREE DIRECT 1.00 ng/dL Normal 0.76-1.46 [facility] Comment on above: Order Comment: N Performed By: #### L 506.1001, L501.54131, L501.6710, L506.0400, L101.9900, L3410.9992, L500.4050, L501.9520, L503.0106 ####[facility] [address] [place], [place], [id number] Thyroid Stim Hormone (TSH)on 12-03-2024 TSH 4.350 uIU/mL High 0.300-4.20 0 [facility] Comment on above: Performed By: #### L 506.1001, L501.70714, L501.6710, L506.0400, L101.9900, L3410.9992, L500.4050, L501.9520, L503.0106 #### [facility] [address] [place], [place], [id number] Vitamin B12on 12-03-2024 Cobalamin (Vitamin B12) [Mass/Vol] 783 pg/mL Normal 180-914 [facility] Comment on above: Performed By: #### L 506.1001, L501.20122, L501.6710, L506.0400, L101.9900, L3410.9992, L500.4050, L501.9520, L503.0106 #### [facility] [address] [place], [place], [id number] Vitamin D,25 Hydroxyon 12-03 Vitamin D 25-OH 57.2 ng/mL Normal 30-100 [facility] Comment on above: Result Comment: Elly min D Status Deficiency: <20 ng/mL (50nmol/L) Insufficiency: 20-30 ng/mL (50-75 nmol/L) Sufficiency: 30-100 ng/mL (75-250 nmol/L) Toxicity: >100 ng/mL (>250 nmol/L) Performed By: #### L 506.1001, L501.93711, L501.6710, L506.0400, L101.9900, L3410.9992, L500.4050, L501.9520, L503.0106 ####[facility] [address] [place], [place], [id number] Absolute lymphocyte countOrd ered By: Lorenzo King on 11-19-2024 Lymphocytes Auto (Unsp spec) [#/Vol] 3.34 10*3/uL 0.83-4.51 [facility] Absolute neutrophil countOrd ered By: Lorenzo King on 11-19-2024 Neutrophils (Bld) [#/Vol] 4.9 10*3/uL 2.0-7.7 [facility] Anion gap in Serum or Plasma Ordered By: Lorenzo King on 11-19-2024 Anion gap [Moles/Vol] 13 mmol/L - [facility] Automated lymphocyte count a s percentage of total leukocytesOrdered By: Lorenzo King on 11-19-2024 Lymphocytes/100 WBC Auto (Unsp spec) 37.1 % [facility] BUN/creatinine ratioOrdered By: Lorenzo King on 11-19-2024 Urea nitrogen/Creatinine [Mass ratio] 12.6 mg/mg 12-14 [facility] Basic Metabolic Profile (BMP )on 11-19-2024 BUN/CRE 12.6 RATIO Normal 12-14 [facility] Comment on above: Performed By: #### L 500.2500, L100.0100 ####[facility] [address] [place], [address] Calcium [Mass/Vol] 9.3 mg/dL Normal 7.6-11.[address] [facility] Comment on above: Performed By: #### L 500.2500, L100.0100 ####[facility] [address] [place], [address] Chloride [Moles/Vol] 102 mmol/L Normal 98-108 [facility] Comment on above: Performed By: #### L 500.2500, L100.0100 ####[facility] [address] [place], [address] CO2 [Moles/Vol] 24.5 mmol/L Normal 21.0-32.0 [facility] Comment on above: Performed By: #### L 500.2500, L100.0100 ####[facility] [address] [place], [address] Creatinine [Mass/Vol] 0.74 mg/dL Normal 0.70-1.20 [facility] Comment on above: Performed By: #### L 500.2500, L100.0100 ####[facility] [address] [place], [address] ECRCL 103.75 ml/min Normal 50-250 [facility] Comment on above: Performed By: #### L 500.2500, L100.0100 ####[facility] [address] [place], [address] GAP 13 Normal 5-15 [facility] Comment on above: Performed By: #### L 500.2500, L100.0100 ####[facility] [address] [place], [address] GFR/1.73 sq M.predicted among non-blacks MDRD (S/P/Bld) [Vol rate/Area] 96 mL/min/{1.73_m2} Normal >60 [facility] Comment on above: Result Comment: mL/m in/1.73m2 CKD-EPI Creatinine Equation (2020) Performed By: #### L 500.2500, L100.0100 ####[facility] [address] [place], [address] Glucose [Mass/Vol] 84 mg/dL Normal 70-[address] [facility] Comment on above: Performed By: #### L 500.2500, L100.0100 ####[facility] [address] [place], [address] Potassium [Moles/Vol] 4.4 mmol/L Normal 3.3-5.1 [facility] Comment on above: Result Comment: Hemo lysis present, Results??could be affected. ?? Performed By: #### L 500.2500, L100.0100 ####[facility] [address] [place], [address] Sodium [Moles/Vol] 139 mmol/L Normal 133-[address] [facility] Comment on above: Performed By: #### L 500.2500, L100.0100 ####[facility] [address] [place], [address] Urea nitrogen [Mass/Vol] 9 mg/dL Normal 4-19 [facility] Comment on above: Performed By: #### L 500.2500, L100.0100 ####[facility] [address] [place], [address] Basophil percentageOrdered B y: Lorenzo King on 11-19-2024 Basophils/100 WBC (Bld) 0.6 % 0-1 [facility] CBC W/Diff, Automatedon 10-27 Absolute Lymph 3.34 X10 3/uL Normal 0.83-4.51 [facility] Comment on above: Performed By: #### L 500.2500, L100.0100 ####[facility] [address] [place], [address] Absolute Neut 4.9 X10 3/uL Normal 2.0-7.7 [facility] Comment on above: Performed By: #### L 500.2500, L100.0100 ####[facility] [address] [place], [address] Basophils/100 WBC (Bld) 0.6 % Normal 0-1 [facility] Comment on above: Performed By: #### L 500.2500, L100.0100 ####[facility] [address] [place], [address] Eosinophils/100 WBC (Bld) 1.9 % Normal 0-5 [facility] Comment on above: Performed By: #### L 500.2500, L100.0100 ####[facility] [address] [place], [address] Erythrocyte distribution width (RBC) [Ratio] 13.4 % Normal 11.6-14.6 [facility] Comment on above: Performed By: #### L 500.2500, L100.0100 ####[facility] [address] [place], [address] Hematocrit (Bld) [Volume fraction] 46.7 % Normal 37-47 [facility] Comment on above: Performed By: #### L 500.2500, L100.0100 ####[facility] [address] [place], [address] Hemoglobin (Bld) [Mass/Vol] 15.9 g/dL High 12.0-15.0 [facility] Comment on above: Performed By: #### L 500.2500, L100.0100 ####[facility] [address] [place], [address] IG% 0.300 Normal 0.0-0.9 [facility] Comment on above: Result Comment: IG% - Immature Granulocytes (promyelocytes, myelocytes and metamyelocytes) > 1% indicates that a LEFT SHIFT is Present. Performed By: #### L 500.2500, L100.0100 ####[facility] [address] [place], [address] Lymphocytes/100 WBC (Bld) 37.1 % Normal 19-41 [facility] Comment on above: Performed By: #### L 500.2500, L100.0100 ####[facility] [address] [place], [address] MCH (RBC) [Entitic mass] 30.5 pg Normal 27.0-32.0 [facility] Comment on above: Performed By: #### L 500.2500, L100.0100 ####[facility] [address] [place], [address] MCHC (RBC) [Mass/Vol] 34.0 g/dL Normal 32-36 [facility] Comment on above: Performed By: #### L 500.2500, L100.0100 ####[facility] [address] [place], [address] MCV (RBC) [Entitic vol] 89.5 fL Normal 81-99 [facility] Comment on above: Performed By: #### L 500.2500, L100.0100 ####[facility] [address] [place], [address] Monocytes/100 WBC (Bld) 6.3 % Normal 0-10 [facility] Comment on above: Performed By: #### L 500.2500, L100.0100 ####[facility] [address] [place], [address] Neutrophils/100 WBC (Bld) 53.8 % Normal 47-70 [facility] Comment on above: Performed By: #### L 500.2500, L100.0100 ####[facility] [address] [place], [address] Nucleated RBC (Bld) [#/Vol] 0 10*3/uL Normal 0-5 [facility] Comment on above: Performed By: #### L 500.2500, L100.0100 ####[facility] [address] [place], [address] Platelet mean volume (Bld) [Entitic vol] 9.5 fL Normal 6.2-12.0 [facility] Comment on above: Performed By: #### L 500.2500, L100.0100 ####[facility] [address] [place], [address] Platelets (Bld) [#/Vol] 361 10*3/uL Normal 150-450 [facility] Comment on above: Performed By: #### L 500.2500, L100.0100 ####[facility] [address] [place], [address] RBC (Bld) [#/Vol] 5.22 10*6/uL Normal 4.2-5.4 [facility] Comment on above: Performed By: #### L 500.2500, L100.0100 ####[facility] [address] [place], [address] RDW SD 44.2 fl High 35.1-43.9 [facility] Comment on above: Performed By: #### L 500.2500, L100.0100 ####[facility] [address] [place], [address] WBC (Bld) [#/Vol] 9.0 10*3/uL Normal 4.4-11.[address] [facility] Comment on above: Performed By: #### L 500.2500, L100.0100 ####[facility] [address] [place], [address] Carbon dioxide, total [Moles /volume] in Central venous bloodOrdered By: Lorenzo King on 11-19-2024 CO2 [Moles/Vol] 24.5 mmol/L 21.0-32.0 [facility] Chest PA and Lateralon 11-19 Chest PA and Lateral [facility] [address] [place] [address] Chest PA and Lateral MR#: [id number] Acct: [id number] Name: DIANA LEE Rep #: [id number] : 1970 F 54 From: Carlos Charles MD PCP: Dr. Shraddha Holley, DO Status: REG ER Study: Chest PA and Lateral Date of Exam: 11/19/24 Exam# [id number] Ordering Dr: Lorenzo King MD PROCEDURE: CHEST PA AND LATERAL 11/19/2024 REASON FOR EXAM: NONPRODUCTIVE COUGH, ILL X 3-WEEK TECHNIQUE: Procedure Code: RADCXR Modality: DX Procedure: CHEST PA AND LATERAL COMPARISON: 02/20/2021 FINDINGS: No appreciable airspace consolidation, pneumothorax or pleural effusion. Cardiac silhouette is normal in size. No vascular congestion. No significant osseous abnormality. RAD/Chest PA and Lateral IMPRESSION: No acute cardiopulmonary disease. Reading Location: [id number] CC: Dr. Shraddha Holley DO; Dr. 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 Shraddha Holley DO Status:REG ER Location: ED HPI History of Present Illness Chief Complaint: General Illness Detail of Chief Complaint: Patient has been ill for 3 weeks complains of bodyaches Informant: patient and spouse/S.O. Onset/Context/Timing Onset: Weeks Context: Sudden Onset Timing: Continuous and Waxes and wanes Quality: Nonproductive cough, congestion initially, myalgias and arthralgias Current Severity: Mild Maximum Severity: Moderate Worsened by: Nothing Relieved by: Nothing Associated Symptoms Associated Symptoms: Flulike symptoms Narrative Narrative: Patient is a 54-year-old woman. She has history of hypertension, hypothyroidism and depression. She was seen earlier this year for tick bite. She was seen at urgent care November 16 for sinus congestion and prescribed Augmentin 875 mg tab 1 twice daily. She presents because of headache, congestion, nonproductive cough, myalgias and arthralgias. She states she has had no improvement since taking the Augmentin. She does complain of bilateral frontal headache. She denies photophobia. She denies ringing or ears decreased hearing. Denies drainage from ears. Denies chest pain, pressure, tightness or heaviness. She denies pleuritic chest pain. She denies abdominal pain, vomiting or diarrhea. She denies urologic symptoms. Prior similar symptoms: Yes Recent Illness/Hospitalization: No PFSH PFSH Medical History Depression History of gout HTN (hypertension) Hypothyroidism Back pain Home Medications ???Medication ???Instructions ???Recorded ???Last Taken ???Type butalbital-acetaminophen- caffeine 1 tab PO PRN PRN Jimenze/Aches/Temp Unknown History 50 mg-325 mg-40 mg tablet >=101 amlodipine 2.5 mg tablet mg PO 04/20/23 Unknown History cholecalciferol (vitamin D3) 125 125 mcg PO DAILY 04/20/23 Unknown History mcg (5,000 unit) capsule escitalopram oxalate 20 mg tablet mg PO 04/20/23 Unknown History estradiol 1 mg tablet mg PO 04/20/23 Unknown History lactobacillus combination no.9 4 4,000 mmu cells PO DAILY 04/20/23 Unknown History billion cell capsule (Adult 50 Plus Probiotic) levothyroxine 25 mcg tablet mcg PO 04/20/23 Unknown History lisinopril 40 mg tablet mg PO 04/20/23 Unknown History amoxicillin 875 mg-potassium 1 tab PO BID #20 tabs 11/16/24 Unk nown Rx clavulanate 125 mg tablet Allergy/AdvReac Type Severity Reaction Status Date / Time semaglutide Allergy Intermediate heart Verified 11/19/24 17:20 palpitations Family History Other Cancer Heart disease Surgical History History of hysterectomy History of bariatric surgery Social History Smoking Status: Never smoker alcohol intake: never substance use type: does not use ROS ROS ED Constitutional Constitutional ED: Denies chills, fever(s), subjective or sweats Eyes Eyes: Denies blurry vision or change in vision ENT ENT ED: Reports other Details: Congestion ; Denies ear pain, rhinorrhea or sore throat Cardiovascular Cardiovascular: Denies chest pain, orthopnea, palpitations or paroxysmal nocturnal dyspnea Respiratory/Chest Respiratory/Chest: Reports cough and dyspnea; Denies dyspnea on exertion, orthopnea, paroxysmal nocturnal dyspnea or sputum Gastrointestinal Gastrointestinal: Denies abdominal pain, diarrhea or vomiting Genitourinary Genitourinary ED: Denies dysuria, hematuria or urinary frequency Musculoskeletal Musculoskeletal: Denies arthralgias or myalgias Integumentary Denies abscess or rash Neurologic Neurologic: Denies headache(s) or paresthesias Psychiatric Psychiatric: Denies anxiety or depression Endocrine Endocrinology: Denies cold intolerance or heat intolerance Hematologic/Lymphatic Hematologic/Lymphatic: Reports systems reviewed and no addt'l complaints, except as documented EXAM Physical Exam Const Vital Signs: 11/19/24 17:20 11/19/24 19:19 Temperature 98.4 F Temperature Source Temporal Pulse Rate 89 71 Respiratory Rate 18 Blood Pressure 159/94 H 144/70 H Blood Pressure Mean 115 94 Pulse Ox 100 100 Oxygen Delivery Method Room Air Positive well nourished and well developed Constitutional Narrative: Patient appears ill but not toxic. General Appearance ED: well developed and NAD; Negative for cyanotic, diaphoretic or pallor HEENT Reports dry mucous (more content not included)... Normal [facility] Eosinophil percentageOrdered By: Lorenzo King on 11-19-2024 Eosinophils/100 WBC (Bld) 1.9 % 0-5 [facility] Erythrocyte distribution wid th ratioOrdered By: Lorenzo King on 11-19-2024 Erythrocyte distribution width (RBC) [Ratio] 13.4 % 11.6-14.6 [facility] Erythrocyte distribution wid th standard deviationOrdered By: Lorenzo King on 11-19-2024 Erythrocyte distribution width (RBC) [Ratio] 44.2 fl High 35.1-43.9 [facility] Glomerular filtration rate ( GFR) estimation/1.73 sq m using serum, plasma, or whole bOrdered By: Lorenzo King on 11-19-2024 GFR/1.73 sq M.predicted among non-blacks MDRD (S/P/Bld) [Vol rate/Area] 96 mL/min/{1.73_m2} >60 [facility] Comment on above: mL/min/1.73m2 CKD-EP I Creatinine Equation (2020) Hematocrit Auto (Bld) [Volum e fraction]Ordered By: Lorenzo King on 11-19-2024 Hematocrit (Bld) [Volume fraction] 46.7 % 37-47 [facility] Hemoglobin measurementOrdere d By: Lorenzo King on 11-19-2024 Hemoglobin (Bld) [Mass/Vol] 15.9 g/dL High 12.0-15.0 [facility] Immature granulocytes/100 WB C Auto (Bld)Ordered By: Lorenzokaveh King on 11-19-2024 Immature granulocytes/100 WBC (Bld) 0.300 % 0.0-0.9 [facility] Comment on above: IG% - Immature Granu locytes (promyelocytes, myelocytes and metamyelocytes) > 1% indicates that a LEFT SHIFT is Present. Influenza virus A and B and SARS-CoV-2 (COVID-19) and Respiratory syncytial virus RNAOrdered By: Lorenzokaveh King on 11-19-2024 SARS-CoV-2 (COVID-19) RNA LARISSA+probe Ql (Unsp spec) [facility] M100.678on 11-19-2024 M100.678 Pending SARS-CoV-2 (COVID 19) Negative INFLUENZA A Negative INFLUENZA B Negative RSV PCR Negative Normal [facility] Comment on above: Performed By: #### M 100.678 #### [facility] [address] [place], [place] [address], [place], [address] MCV (mean corpuscular volume ) determinationOrdered By: Lorenzokaveh King on 11-19-2024 MCV (RBC) [Entitic vol] 89.5 fL 81-99 [facility] Mean corpuscular hemoglobin (MCH) determinationOrdered By: Lorenzo King on 11-19-2024 MCH (RBC) [Entitic mass] 30.5 pg 27.0-32.0 [facility] Mean corpuscular hemoglobin concentration (MCHC) determinationOrdered By: Lorenzokaveh King on 11-19-2024 MCHC (RBC) [Mass/Vol] 34.0 g/dL 32-36 [facility] Mean platelet volume determi nationOrdered By: Lorenzokaveh King on 11-19-2024 Platelet mean volume (Bld) [Entitic vol] 9.5 fL 6.2-12.0 [facility] Monocyte percentageOrdered B y: Lornezo King on 11-19-2024 Monocytes/100 WBC (Bld) 6.3 % 0-10 [facility] Neutrophil percentageOrdered By: Lorenzokaveh King on 09-25-2025 Neutrophils/100 WBC (Bld) 53.8 % 47-70 [facility] Nucleated red blood cell per centageOrdered By: Lorenzo King on 11-19-2024 Nucleated RBC/100 WBC (Bld) [Ratio] 0 % 0-5 [facility] Platelet countOrdered By: Alfonso King on 11-19-2024 Platelets (Bld) [#/Vol] 361 10*3/uL 150-450 [facility] Potassium measurement (mass/ volume)Ordered By: Lorenzo King on 11-19-2024 Potassium (Unsp spec) [Mass/Vol] 4.4 mmol/L 3.3-5.1 [facility] Comment on above: Hemolysis present, R esults could be affected. RBC Auto (Bld) [#/Vol]Ordere d By: Lorenzo King on 11-19-2024 RBC (Bld) [#/Vol] 5.22 10*6/uL 4.2-5.4 [facility] Serum creatinine measurement (mass/volume)Ordered By: Lorenzo King on 11-19-2024 Creatinine [Mass/Vol] 0.74 mg/dL 0.70-1.20 [facility] Serum glucose measurement (m ass/volume)Ordered By: Lorenzokaveh King on 11-19-2024 Glucose [Mass/Vol] 84 mg/dL 70-[address] [facility] Serum or plasma calcium danny urement (mass/volume)Ordered By: Lorenzokaveh King on 11-19-2024 Calcium [Mass/Vol] 9.3 mg/dL 7.6-11.[address] [facility] Serum or plasma urea nitroge n measurement (mass/volume)Ordered By: Lorenzo King on 11-19-2024 Urea nitrogen [Mass/Vol] 9 mg/dL 4-19 [facility] Sodium levelOrdered By: Lorenzokaveh King on 11-19-2024 Sodium [Moles/Vol] 139 mmol/L 133-[address] [facility] [place] blood cell (WBC) count Ordered By: Lorenzokaveh King on 11-19-2024 WBC (Bld) [#/Vol] 9.0 10*3/uL 4.4-11.[address] [facility] Urgent Care Visit Reporton 0 11-16-2024 Urgent Care Visit Report [facility] [address], [address] [place] [address] OFFICE VISIT Date of Service: 11/16/24 MR#: [id number] Acct: [id number] Name: DIANA LEE Rep #: [id number] : 1970 Provider: SUZAN Jack Age/Sex: 54/F Location: [facility] Status: Signed Intake Vital Signs 04/20/23 11:51 [...] palpitations Medications ???Medication ???Instructions ???Recorded ???Confirmed ???Type butalbital-acetaminophen- caffeine 1 tab PO PRN PRN Jimneez/Aches/Temp 11/16/24 History 50 mg-325 mg-40 mg tablet [...] fevers everyday and chest congestion. Taking Mucinex. [facility] Medical History (Updated 04/20/23 @ 14:36 by ANTONIETTA Armstrong) Depression History of gout HTN (hypertension) Hypothyroidism [...] and no acute distress Orientation: alert, awake [facility] Head: normal to inspection Ears: hearing grossly [...] Acute frontal (more content not included)... Normal [facility] Inital Evaluation (1) - PTon 01-30-2024 Inital Evaluation (1) - PT [facility] [address] [place] [address] / REHABILITATION SERVICES INITIAL EVALUATION MR#: [id number] Acct: [id number] Name: DIANA LEE Rep #: [id number] : 1970 53 From: Claude Rg DPT, OCS, CSCS Referring Dr.: ANTONIETTA Beckham Status: [facility] Insurance: [employer] SELF PAY INSURANCE Patient's Visit Information Visit Information Visit Information: DIANA LEE is a 53 year old F referred to Physical Therapy by ANTONIETTA Beckham with a diagnosis of vertigo. Date of Evaluation: 01/30/24 Physical Therapist: Claude Rg DPT, BRANDT, CSCS Visit Plan Frequency: 1-2x /Week Duration: 4-6 Weeks Plan: 1-2x/week for 2-6 weeks as needed for : ANGE whitney educated on head turns 10x and head [...] Goal Time Frame: 4-6 Weeks Goal 2:: 30/30 FGA Goal Time Frame: 4-6 Weeks Goal [...] motor function and To increase tolerance to activity/condition/positi on Therapeutic Exercise to Include: Balance training Comment: adaptation and positional exercises For the Purpose of:: To increase ROM, To improve nutrient delivery to tissue and To increase tolerance to activity/condition/positi on Text: Thank you for the opportunity to evaluate your patient. For Medicare and Medicare HMO plans, please review the plan of care and approve it. It will need to be FAXED BACK to us at [phone] for Medicare purposes. For Medicare only, by signing this I certify the plan of care. Please let me know if there are questions or concerns regarding this plan of care. Physician Signature: Date: _ 01/30/24 1211 CC: ANTONIETTA Rg; Dr. Shraddha Holley, EBG Signed Normal [facility] CBC + DIFFon 01-25-2024 Baso # 0.02 x10EE3/UL Normal 0.00 - 0.10 [facility] Comment on above: Performed By: #### 2 89595 #### [facility],[address] [place] [address] 77708 Basophils/100 WBC (Bld) 0.4 % Normal 0.0 - 2.0 [facility] Comment on above: Performed By: #### 2 77553 #### [facility],[address] [place] [address] 86021 CBC + DIFF Normal [facility] Comment on above: Result Comment: CBC- COMPLETE BLOOD COUNT Performed By: #### 2 53488 #### [facility],[address] [place] [address] 48643 EO # 0.06 x10EE3/UL Normal 0.00 - 0.50 [facility] Comment on above: Performed By: #### 2 66086 #### [facility],[address] [place] [address] 33879 Eosinophils/100 WBC (Bld) 1.0 % Normal 0.0 - 7.0 [facility] Comment on above: Performed By: #### 2 75659 #### [facility],[address] [place] [address] 98127 Erythrocyte distribution width (RBC) [Ratio] 13.4 % Normal 12.0 - 15.6 [facility] Comment on above: Performed By: #### 2 51997 #### [facility],[address] [place] [address] 13879 Hematocrit (Bld) [Volume fraction] 44.6 % Normal 34.0 - 46.0 [facility] Comment on above: Performed By: #### 2 49679 #### [facility],[address] [place] [address] 88512 Hemoglobin (Bld) [Mass/Vol] 15.1 g/dL Normal 12.0 - 16.0 [facility] Comment on above: Performed By: #### 2 28611 #### [facility],[address] [place] [address] 41129 Lymph # 2.21 x10EE3/UL Normal 0.80 - 2.80 [facility] Comment on above: Performed By: #### 2 39689 #### [facility],[address] [place] [address] 33762 Lymphocytes/100 WBC (Bld) 37.2 % Normal 20.0 - 45.0 [facility] Comment on above: Performed By: #### 2 59902 #### [facility],[address] [place] [address] 57307 MANUAL DIFF N/A Normal [facility] Comment on above: Performed By: #### 2 99821 #### [facility],[address] [place] [address] 22050 MCH (RBC) [Entitic mass] 30 pg Normal 27 - 33 [facility] Comment on above: Performed By: #### 2 69446 #### [facility],[address] [place] [address] 21549 MCHC 34 X10 3 Normal 32 - 36 [facility] Comment on above: Performed By: #### 2 00101 #### [facility],[address] [place] [address] 56439 MCV (RBC) [Entitic vol] 89 fL Normal 80 - 99 [facility] Comment on above: Performed By: #### 2 79628 #### [facility],[address] [place] [address] 03071 Cochran # 0.30 x10EE3/UL Normal 0.20 - 1.00 [facility] Comment on above: Performed By: #### 2 41947 #### [facility],[address] [place] [address] 87063 MONOS % 5.0 % Normal 0.0 - 10.0 [facility] Comment on above: Performed By: #### 2 14313 #### [facility],[address] [place] [address] 75222 Morphology Cesar (Bld) [Interp] N/A Normal [facility] Comment on above: Performed By: #### 2 10704 #### [facility],[address] [place] [address] 53504 Neut # 3.36 x10EE3/UL Normal 1.50 - 7.10 [facility] Comment on above: Performed By: #### 2 56774 #### [facility],[address] [place] [address] 95010 Neutrophils/100 WBC (Bld) 56.5 % Normal 46.0 - 76.0 [facility] Comment on above: Performed By: #### 2 26980 #### [facility],[address] [place] [address] 24618 PLATELET 339 x10EE3/UL Normal 150 - 450 [facility] Comment on above: Performed By: #### 2 23975 #### [facility],[address] [place] [address] 03438 Platelet mean volume (Bld) [Entitic vol] 6.9 fL Normal 6.6 - 10.5 [facility] Comment on above: Result Comment: AUTO MATED DIFFERENTIAL Performed By: #### 2 49429 #### [facility],[address] [place] [address] 10850 RBC 5.00 x 10EE6/UL Normal 4.10 - 5.30 [facility] Comment on above: Performed By: #### 2 07066 #### [facility],[address] [place] [address] 20899 WBC 6.0 x 10EE3/UL Normal 4.5 - 10.8 [facility] Comment on above: Performed By: #### 2 98807 #### [facility],[address] [place] [address] 34081 CMP with eGFRon 01-25-2024 AGE 53 years Normal [facility] Comment on above: Performed By: #### 2 53012 #### [facility],[address] [place] [address] 41139 Albumin [Mass/Vol] 3.2 g/dL Low 3.4 - 5.0 [facility] Comment on above: Performed By: #### 2 17668 #### [facility],[address] [place] [address] Albumin/Globulin [Mass ratio] 0.8 {ratio} Low 0.9 - 1.6 [facility] Comment on above: Performed By: #### 2 11527 #### [facility],[address] [place] [address] 48042 ALK PHOS 87 U/L Normal 46 - 116 [facility] Comment on above: Performed By: #### 2 17075 #### [facility],[address] [place] [address] 96290 ALT [Catalytic activity/Vol] 20 U/L Normal 16 - 63 [facility] Comment on above: Performed By: #### 2 61051 #### [facility],[address] [place] [address] 02494 Anion gap [Moles/Vol] 14 mmol/L Normal 10 - 20 [facility] Comment on above: Performed By: #### 2 01417 #### [facility],[address] [place] [address] 04741 AST [Catalytic activity/Vol] 42 U/L High 13 - 39 [facility] Comment on above: Performed By: #### 2 32735 #### [facility],[address] [place], [place] [id number] B/C RATIO 11 ratio Normal 0 - 30 [facility] Comment on above: Performed By: #### 2 40858 #### [facility],[address] [place] [address] Bilirubin [Mass/Vol] 0.4 mg/dL Normal 0.2 - 1.0 [facility] Comment on above: Performed By: #### 2 34828 #### [facility],[address] [place] [address] Calcium [Mass/Vol] 8.7 mg/dL Normal 8.5 - 10.1 [facility] Comment on above: Performed By: #### 2 86848 #### [facility],[address] [place], [place] [id number] Chloride [Moles/Vol] 102 mmol/L Normal 98 - 107 [facility] Comment on above: Performed By: #### 2 12594 #### [facility],[address] [place] [address] CMP with eGFR Normal [facility] Comment on above: Result Comment: COMP REHENSIVE METABOLIC PANEL Performed By: #### 2 06869 #### [facility],[address] [place] [address] 89564 CO2 [Moles/Vol] 28.3 mmol/L Normal 21.0 - 32.0 [facility] Comment on above: Performed By: #### 2 44545 #### [facility],[address] [place] [address] 13916 Creatinine [Mass/Vol] 0.99 mg/dL Normal 0.55 - 1.02 [facility] Comment on above: Performed By: #### 2 58864 #### [facility],[address] [place] [address] 42238 eGFR 59 ML/MINUTE Low 60 - 999 [facility] Comment on above: Performed By: #### 2 73537 #### [facility],[address] [place] [address] 03759 GFR/1.73 sq M.predicted among non-blacks MDRD (S/P/Bld) [Vol rate/Area] mL/min/{1.73_m2} Normal 60 - 999 [facility] Comment on above: Result Comment: ACCO RDING TO THE NATIONAL KIDNEY DISEASE EDUCATION PROGRAM(NKDE), A NORMAL eGFR IS A VALUE GREATER THAN OR EQUAL TO 60 ML/MIN/1.73 SQ METERS. CHRONIC KIDNEY DISEASE: <60mL/MIN/1.73 SQ METERS KIDNEY FAILURE: <15mL/MIN/1.73 SQ METERS THIS TEST SHOULD ONLY BE USED FOR PATIENTS 18 YEARS OF AGE AND OLDER. Performed By: #### 2 85499 #### [address] [address] Globulin (S) [Mass/Vol] 3.9 g/dL High 1.5 - 3.8 [facility] Comment on above: Performed By: #### 2 83388 #### [address] [address] Glucose [Mass/Vol] 94 mg/dL Normal 74 - 106 [facility] Comment on above: Performed By: #### 2 36908 #### [address] [address] Potassium [Moles/Vol] 4.7 mmol/L Normal 3.5 - 5.1 [facility] Comment on above: Performed By: #### 2 67243 #### [address] [address] Protein [Mass/Vol] 7.1 g/dL Normal 6.4 - 8.2 [facility] Comment on above: Performed By: #### 2 38345 #### [facility],[address] [place] [address] 96242 Sodium [Moles/Vol] 140 mmol/L Normal 136 - 145 [facility] Comment on above: Performed By: #### 2 52532 #### [facility],[address] [place] [address] 22588 Urea nitrogen [Mass/Vol] 11 mg/dL Normal 7 - 18 [facility] Comment on above: Performed By: #### 2 56386 #### [facility],[address] [place] [address] 81683 ED MED ADMINISTRATION DETAIL on 01-25-2024 ED MED ADMINISTRATION DETAIL Mailroom Assistant Medication Administration Record [address] [address] [id number] 01/25/2024 Patient: DIANA LEE Sex: Female : [...] checked: no pain, redness, or swelling. Evette bAel R.N. IV flushed thoroughly pre-medication administration. Information Scanned reviewed with patient. Verbalizes understanding. Medication Wastage: 5 mg wasted. - 03:25 Evette Abel R.N. 1 of 1 Normal [facility] ED NURSES CLINICAL NOTEon ED NURSES CLINICAL NOTE Nurse Narrative Nurse Clinical Narrative [address] [address] [id number] 01/25/2024 Patient: DIANA LEE Sex: Female : 1970 Age: 53y Disposition: Discharge to Home Disposition Decision Time: 04:14 01/25/2024 Departure Time: 04:35 01/25/2024 TRIAGE Arrived by private vehicle. Historian: patient. Accompanied by family. Triage time: 02:11 01/25/2024. Acuity: LEVEL 3. Chief Complaint: POSSIBLE ALLERGIC REACTION and . tongue. This started today. ( 0000. Pt has been feeling dizzy since Thanksgiving 01/23/24). Treatment SPORTS ANALYST: (Benadryl 50 mg, Prednisone Unknown mg. Taken at 0120). SEPSIS SCREEN: NEGATIVE. SIRS criteria negative. No possible sources of infection. -- 02:38 01/25/24 EST Evette Abel R.N. 02:34 01/25/24. BP: 168/108 MAP: 128. HR: 87. RR: 16. O2 saturation: 99% Temperature: 97.9 F. Pain level now 1/10. Describes the pain as aching. Constant. -- 02:34 01/25/24 EST Evette Abel R.N. Measurements: 02:35 01/25/24 Wt: 95.7 kg, Ht/Alexi: 65.0 in, BMI: 35.11 -- 02:35 01/25/24 EST Evette Abel R.N. Medications: Semaglutide 2.5mg/ml Inj 4ml -- 02:37 01/25/24 LAYLA Abel R.N. 1 of 4 Nurse Narrative amlodipine 2.5 mg tablet -- 02:37 01/25/24 EST Evette Abel R.N. escitalopram 20 mg tablet -- 02:37 01/25/24 EST Evette Abel R.N. lisinopril 40 mg tablet -- 02:37 01/25/24 Jimmy McqueenN. levothyroxine 25 mcg tablet -- 02:37 01/25/24 LAYLA Abel R.N. estradiol 1 mg tablet -- 02:37 01/25/24 LAYLA Abel R.N. Allergies: no known drug allergies -- 02:36 01/25/24 EST Evette Abel R.N. Problems: Hypertension -- 02:37 01/25/24 EST Evette Abel R.N. 02:11 01/25/24. Preferred pharmacy ([facility]). -- 02:38 01/25/24 LAYLA Abel R.N. ADDITIONAL SURGERIES: -- 02:37 01/25/24 LAYLA Abel R.N. Bariatric Surgery -- 02:37 01/25/24 LAYLA Abel R.N. History 02:01/25/24. SOCIAL HX: Never smoker. No alcohol use [...] Abel R.N. (more content not included)... Normal [facility] ED ORDER SHEET (CPOE ONLY)on 01-25-2024 ED ORDER SHEET (CPOE ONLY) Order Sheet Order Sheet [address] [place] [address] [id number] 01/25/2024 Patient: DIANA LEE Sex: Female : 1970 Age: 53y MEASUREMENTS: Wt: 95.7 kg, Ht/Alexi: 65.0 in, BMI: 35.11 ALLERGIES: No known drug allergies MEDICATION/IV/DRIP/FLUID ORDERS Order Description Priority Entered Acknowledged Completed Dexamethasone (Dedcadron) 02:47 01/25/2024 03:16 03:25 IVP5 mg (NOW x1) Lucie Partida D.O. 01/25/2024 01/25/2024 Lalito Freedman, R.N. Reason for ordering with alerts: Clinical consideration given --02:47 01/25/2024 Lucie Partida D.O. LAB ORDERS Order Description Priority Entered Acknowledged Collected Completed CBC w Diff Stat Stat 02:41 01/25/2024 02:42 01/25/2024 02:44 01/25/2024 Steven Raphael R.N. Anne Rutt, R.N. CMP Stat Stat 02:41 01/25/2024 02:42 01/25/2024 02:44 01/25/2024 Steven Raphael R.N. Anne Rutt, R.N. Troponin-I Stat Stat 02:41 01/25/2024 02:42 01/25/2024 02:44 01/25/2024 Steevn Raphael R.N. Anne Rutt, R.N. 1 of 2 Order Sheet EKG - ED Stat Stat 02:41 01/25/2024 02:42 01/25/2024 02:44 01/25/2024 Steven Raphael R.N. Anne Rutt, R.N. DIAGNOSTIC STUDY ORDERS Order Description Priority Entered Acknowledged Completed STAFF ORDERS Order Description Priority Entered Acknowledged Collected Completed Oxygen titrate to 92% 02:41 01/25/2024 02:44 01/25/2024 Steven Raphael, R.N. Natural Resource Manager 02:41 01/25/2024 02:42 01/25/2024 02:44 01/25/2024 Steven Raphael R.N. Anne Rutt, R.N. Vital signs every 15 02:41 01/25/2024 02:44 01/25/2024 02:44 01/25/2024 minutes Steven Raphael R.N. Anne Rutt, R.N. IV Saline Lock 02:41 01/25/2024 02:42 01/25/2024 02:44 01/25/2024 Steven Raphael R.N. Anne Rutt, R.N. [Electronically signed by Lucie Partida D.O. (01/25/2024 07:30 EST)] 2 of 2 Normal [facility] ED PHYSICIAN CLINICAL REPORT on 01-25-2024 ED PHYSICIAN CLINICAL REPORT Narrative Physician Clinical Narrative [place] [id number] [facility] [place] [address] [phone] 01/25/2024 Patient: DIANA LEE Sex: Female : [...] EST 4 of 9 Narrative 01/25/2024 03:04 Cochran # 0.30 x10/U (more content not included)... Normal [facility] ED SUPER BILLon 01-25-2024 ED SUPER BILL [facility] [address] [place] [address] [id number] 01/25/2024 Patient: DIANA LEE Sex: Female : 1970 Age: 53y Item Facility Professional Category Description Code Code Quantity Fee Total Nurse/E/M EMERGENCY 648186 1 $0.00 $0.00 DEPARTMENT VISIT HIGH/URGENT SEVERITY (88944-43) Nurse/IV/IM/Infusions IVP initial 864373 1 $0.00 $0.00 (39115) Grand Total $0.00 Providers Lucie Partida D.O. Chief Complaint tongue swelling. Principal Diagnosis Adverse drug reaction involving an oral hypoglycemic. 1 of 2 Superbill ICD-10 Codes T38.3x5A: Adverse effect of insulin and oral hypoglycemic [antidiabetic] drugs, initial encounter 2 of 2 Normal [facility] ED VISIT SUMMARYon ED VISIT SUMMARY Visit Overview Visit Overview [address] [address] [id number] 01/25/2024 Patient: DIANA LEE Sex: Female : [...] 20 mg tablet estradiol 1 mg tablet 1 of 3 Visit Overview levothyroxine 25 mcg tablet [...] 01/25/24 87 RR 02:34 01/25/24 16 RR 02:34 01/25/24 16 O2 Sat 02:34 01/25/24 99% O2 Sat 02:34 01/25/24 99% Pain 02:34 01/25/24 1 Pain 02:34 01/25/24 1 ETCO2 02:34 01/25/24 ETCO2 02:34 01/25/24 GCS 02:34 01/25/24 GCS 02:34 01/25/24 RTS 02:34 01/25/24 RTS 02:34 01/25/24 PROCEDURES NURSING INTERVENTIONS LABS / STUDIES LABS / STUDIES ORDERED CBC w Diff CMP EKG - ED Troponin-I CLINICAL IMPRESSION ADVERSE DRUG REACTION INVOLVING AN ORAL HYPOGLYCEMIC 3 of 3 Normal [facility] ED VITALS FLOW SHEETon 01-24 ED VITALS FLOW SHEET Vitals Vital Sign Flow Sheet [address] [place] [address] [id number] 01/25/2024 Patient: DIANA LEE Sex: Female : 1970 Age: 53y Measurements Wt: 95.7 kg, Ht/Alexi: 65.0 in, BMI: 35.11 Measured Time BP MAP HR RR O2Sat ETCO2 Temp Pain GCS RTS 02:34 01/25/2024 168/108 128 87 16 99% 97.9 F 1 1 of 1 Normal [facility] TROPONINon 01-25-2024 HS TROPONIN 8.1 pg/mL Normal 0.0 - 51.4 [facility] Comment on above: Performed By: #### 2 [id number] #### [facility],[address] [place], [place] [id number] ED MED ADMINISTRATION DETAIL on 12-29-2023 ED MED ADMINISTRATION DETAIL Mailroom Assistant Medication Administration Record [address] [address] [id number] 12/27/2023 Patient: DIANA LEE Sex: Female : [...] 03:23 Noam Norwood R.N. 1 of 2 Mailroom Assistant Medication Ordered Medication Administration Date/Time MethylPREDNISolo 03:25 [...] site checked: no pain, redness, or swelling. Tr Taylor.N. IV flushed thoroughly pre-medication administration. Information Stopped reviewed with patient including reason for taking this medication. 04:01 12/27/2023 Verbalizes understanding. - 03:25 Lalito Taylor R.N. Scanned 04:12/26 Medication Discontinued: IV completed. Total amount infused: 50 mL. IV patency established. IV site checked: no pain, redness, or swelling. IV flushed thoroughly post-medication administration. - 04:06 Noam Norwood R.N. 2 of 2 Normal [facility] ED NURSES CLINICAL NOTEon ED NURSES CLINICAL NOTE Nurse Narrative Nurse Clinical Narrative [facility] [address] [place] [address] [phone] 12/27/2023 Patient: DIANA LEE Sex: Female : [...] swelling. Location identified as the tongue. Treatment SPORTS ANALYST: Took Benadryl. SEPSIS SCREEN: NEGATIVE. SIRS criteria negative. -- 02:03 12/27/23 EDT Shelton Payan R.N. 02:01 12/27/23. BP: 141/84 MAP: 103. HR: 84. RR: 16. O2 saturation: 100% Temperature: 97.3 F. Pain level now 0/10. -- 02:12/27/23 EDT Shelton Payan R.N. Measurements: 02:00 12/27/23 Wt: 97.5 kg, Ht/Alexi: 65.0 in, BMI: 35.78 -- 02:00 12/27/23 EDT Shelton Payan R.N. Medications: Semaglutide 2.5mg/ml Inj 4ml -- 01:58 12/27/23 EDT Shelton Payan R.N. 1 of 4 Nurse Narrative amlodipine 2.5 mg tablet -- 01:58 12/27/23 EDT Shelton Payan R.N. escitalopram 20 mg tablet -- 01:58 12/27/23 EDT Shelton Payan R.N. lisinopril 40 mg tablet -- 01:58 12/27/23 EDT Shelton Payan R.N. levothyroxine 25 mcg tablet -- 01:58 12/27/23 EDT Shelton Payan R.N. estradiol 1 mg tablet -- 01:58 12/27/23 EDT Shelton Payan R.N. Allergies: no known drug allergies -- 01:57 12/27/23 EDT Shelton Payan R.N. Problems: Benign essential hypertension -- 01:59 12/27/23 EDT Shelton Payan R.N. Hypothyroidism -- 01:59 12/27/23 EDT Shelton Payan R.N. ADDITIONAL SURGERIES: -- 01:59 12/27/23 EDT Shelton [...] EDT Noam Norwood R.N. NURSING PROGRESS NOTES 03:20 12/27/23. IV NS 0.9 % 1000 mL started in bag#1 1000 mL at 100 mL/hr via Site# 1. Allergies verified and confirmed 5 rights. IV patency established. IV site checked: no pain, redness, or swelling. IV flushed thoroughly pre-medication administration. Information reviewed with patient including reason for taking this medication. Verbalizes understanding. -- 03:22 12/27/23 EDT Noam Norwood R.N. 03:23 12/27/23. Benadryl IVP 50 mg given via Site# 1. Confirmed 5 rights. IV patency established. IV site checked: no pain, redness, or swelling. IV flushed thoroughly pre-medication administration. Information reviewed with patient including reason for taking this medication. Verbalizes understanding. -- 03:23 12/27/23 EDT Noam Norwood R.N. 03:25 12/27/23. MethylPREDNISolone Sodium Succ (Solu-Medrol) IVP 125 mg given via Site# 1. Confirmed 5 rights. IV patency established. IV site checked: no pain, redness, or swelling. IV flushed thoroughly pre-medication administration. Information reviewed with patient including reason for taking this medication. Verbalizes understanding. -- 03:25 12/27/23 EDT Noam Norwood R.N. 03:25 12/27/23. Pepcid 20mg/50ml Premix IVPB 20 mg started at 40 mg/hr via Site# 1. Allergies verified and confirmed 5 rights. IV patency established. IV site checked: no pain, redness, or swelling. IV flushed thoroughly pre-medication administration. Information reviewed with patient including reason for taking this medication. Verbalizes understanding. -- 03:25 12/27/23 EDT Noam Norwood R.N. 03:31 12/27/23. Two patient identifiers checked. Call light placed in reach. Side rails up x 1. Bed placed in lowest position. Brakes of bed on. -- 03:46 12/27/23 EDT Noam Norwood R.N. DISPOSITION / DISCHARGE 03:16 12/27/23. Site #1 started via IV in the right an (more content not included)... Normal [facility] ED ORDER SHEET (CPOE ONLY)on 12-29-2023 ED ORDER SHEET (CPOE ONLY) Order Sheet Order Sheet [address] [address] [id number] 12/27/2023 Patient: DIANA LEE Sex: Female : [...] (NOW x1) 02:10 12/27/2023 03:06 03:23 Lucie Partida D.O. 12/27/2023 12/27/2023 Lalito Taylor R.N. MethylPREDNISolone Sodium 02:10 12/27/2023 03:06 03:25 Succ (Solu-Medrol) [id number] mg Lucie Partida D.O. 12/27/2023 12/27/2023 (NOW x1) Lalito Taylor R.N. Reason for ordering with alerts: Clinical consideration given --02:10 12/27/2023 Lucie Partida D.O. Pepcid 20mg/50ml Premix 02:10 12/27/2023 03:06 03:25 IVPB20 mg (NOW x1) Lucie Partida D.O. 12/27/2023 12/27/2023 Lalito Taylor R.N. LAB ORDERS 1 of 2 Order Sheet Order Description Priority Entered Acknowledged Collected Completed CBC w Diff Stat Stat 02:10 12/27/2023 03:06 12/27/2023 03:23 12/27/2023 Steven Raphael R.N. Seth Lapp, R.N. CMP Stat Stat 02:10 12/27/2023 03:06 12/27/2023 03:23 12/27/2023 Steevn Raphael R.N. Seth Lapp RTonnyNTonny DIAGNOSTIC STUDY ORDERS Order Description Priority Entered Acknowledged Completed STAFF ORDERS Order Description Priority Entered Acknowledged Collected Completed [Electronically signed by Lucie Partida D.O. (12/29/2023 01:00 EDT)] 2 of 2 Normal [facility] ED PHYSICIAN CLINICAL REPORT on 12-29-2023 ED PHYSICIAN CLINICAL REPORT Narrative Physician Clinical Narrative [address] [address] [id number] 12/27/2023 Patient: DIANA LEE Sex: Female : 1970 Age: 53y Disposition: Discharge to Home Disposition Decision Time: 03:45 12/27/2023 Departure Time: 04:05 12/27/2023 Measurements Wt: 97.5 kg, Ht/Alexi: 65.0 in, BMI: 35.78 Initial Vital Sign Measured Time BP MAP HR RR O2Sat ETCO2 Temp Pain GCS RTS 02:12/27/2023 141/84 103 84 16 100% 97.3 F 0 Time Seen: 02:12/27/2023. Arrived- By private vehicle. Historian- patient. HISTORY [...] EDT 4 of 9 Narrative 12/27/2023 03:37 Cochran # 0.41 x10/UL 0.20 - 1.00 Final [...] Comments COMPREHENSIVE (more content not included)... Normal [facility] ED [facility] BILL 12-29-[address] [address] [id number] 12/27/2023 Patient: DIANA LEE Sex: Female : 1970 Age: 53y Item Facility Professional Category Description Code Code Quantity Fee Total Drugs Normal Saline 219323 1 $0.00 $0.00 1000cc (306396) Nurse/E/M EMERGENCY 404559 1 $0.00 $0.00 DEPARTMENT VISIT HIGH/URGENT SEVERITY (86860-29) Nurse/IV/IM/Infusions Drip/IVPB initial 899213 1 $0.00 $0.00 (17558) Nurse/IV/IM/Infusions IVP additional 837783 2 $0.00 $0.00 push (98487) Grand Total $0.00 Providers Lucie Partida D.O. [...] edema, initial encounter 2 of 2 Normal [facility] ED VISIT SUMMARYon ED VISIT SUMMARY Visit Overview Visit Overview [facility] [address] [place] [address] [id number] 12/27/2023 Patient: DIANA LEE Sex: Female : [...] 1 mg tablet levothyroxine 25 mcg tablet 1 of 3 Visit Overview lisinopril 40 mg tablet [...] not labored. Breath sounds within normal limits. 2 of 3 Visit Overview VITAL SIGNS First [...] WITH FACIAL SWELLING 3 of 3 Normal [facility] ED VITALS FLOW SHEETon 12-28 ED VITALS FLOW SHEET Vitals Vital Sign Flow Sheet [address] [address] [id number] 12/27/2023 Patient: DIANA LEE Sex: Female : 1970 Age: 53y Measurements Wt: 97.5 kg, Ht/Alexi: 65.0 in, BMI: 35.78 Measured Time BP MAP HR RR O2Sat ETCO2 Temp Pain GCS RTS 04:03 12/27/2023 79 96% 04:03 12/27/2023 142/82 102 80 18 98% 02:01 12/27/2023 141/84 103 84 16 100% 97.3 F 0 1 of 1 Normal [facility] CBC + DIFFon 12-27-2023 Baso # 0.03 x10EE3/UL Normal 0.00 - 0.10 [facility] Comment on above: Performed By: #### 2 74393 #### [facility],[address] [place] [address] Basophils/100 WBC (Bld) 0.4 % Normal 0.0 - 2.0 [facility] Comment on above: Performed By: #### 2 52911 #### [facility],[address] [place] [address] CBC + DIFF Normal [facility] Comment on above: Result Comment: CBC- COMPLETE BLOOD COUNT Performed By: #### 2 79481 #### [place] [address] EO # 0.05 x10EE3/UL Normal 0.00 - 0.50 [facility] Comment on above: Performed By: #### 2 06975 #### [place] [address] Eosinophils/100 WBC (Bld) 0.8 % Normal 0.0 - 7.0 [facility] Comment on above: Performed By: #### 2 31867 #### [place] [address] Erythrocyte distribution width (RBC) [Ratio] 13.2 % Normal 12.0 - 15.6 [facility] Comment on above: Performed By: #### 2 68849 #### [facility],[address] [place] [address] Hematocrit (Bld) [Volume fraction] 39.7 % Normal 34.0 - 46.0 [facility] Comment on above: Performed By: #### 2 54657 #### [place] [address] Hemoglobin (Bld) [Mass/Vol] 13.4 g/dL Normal 12.0 - 16.0 [facility] Comment on above: Performed By: #### 2 79308 #### [facility],[address] [place] [address] Lymph # 1.53 x10EE3/UL Normal 0.80 - 2.80 [facility] Comment on above: Performed By: #### 2 60770 #### [facility],[address] [place] [address] Lymphocytes/100 WBC (Bld) 22.9 % Normal 20.0 - 45.0 [facility] Comment on above: Performed By: #### 2 10964 #### [facility],[address] [place] [address] MANUAL DIFF N/A Normal [facility] Comment on above: Performed By: #### 2 62339 #### [facility],[address] [place] [address] MCH (RBC) [Entitic mass] 30 pg Normal 27 - 33 [facility] Comment on above: Performed By: #### 2 11675 #### [facility],[address] [place] [address] MCHC 34 X10 3 Normal 32 - 36 [facility] Comment on above: Performed By: #### 2 29556 #### [facility],[address] [place] [address] MCV (RBC) [Entitic vol] 89 fL Normal 80 - 99 [facility] Comment on above: Performed By: #### 2 23610 #### [facility],[address] [place] [address] Cochran # 0.41 x10EE3/UL Normal 0.20 - 1.00 [facility] Comment on above: Performed By: #### 2 71589 #### [facility],[address] [place] [address] MONOS % 6.2 % Normal 0.0 - 10.0 [facility] Comment on above: Performed By: #### 2 14763 #### [facility],[address] [place], [place] [phone] Morphology Cesar (Bld) [Interp] N/A Normal [facility] Comment on above: Performed By: #### 2 67055 #### [facility],[address] [place] [address] Neut # 4.66 x10EE3/UL Normal 1.50 - 7.10 [facility] Comment on above: Performed By: #### 2 64642 #### [facility],[address] [place] [address] Neutrophils/100 WBC (Bld) 69.7 % Normal 46.0 - 76.0 [facility] Comment on above: Performed By: #### 2 61007 #### [facility],[address] [place] [address] PLATELET 272 x10EE3/UL Normal 150 - 450 [facility] Comment on above: Performed By: #### 2 92065 #### [facility],[address] [place] [address] Platelet mean volume (Bld) [Entitic vol] 7.1 fL Normal 6.6 - 10.5 [facility] Comment on above: Result Comment: AUTO MATED DIFFERENTIAL Performed By: #### 2 74789 #### [facility],[address] [place] [address] 58945 RBC 4.44 x 10EE6/UL Normal 4.10 - 5.30 [facility] Comment on above: Performed By: #### 2 91294 #### [facility],[address] [place] [address]7620 WBC 6.7 x 10EE3/UL Normal 4.5 - 10.8 [facility] Comment on above: Performed By: #### 2 05434 #### [facility],[address] [place] [address] 17138 CMP with eGFRon 12-27-2023 AGE 53 years Normal [facility] Comment on above: Performed By: #### 2 31191 #### [facility],[address] [place] [address] Albumin [Mass/Vol] 3.1 g/dL Low 3.4 - 5.0 [facility] Comment on above: Performed By: #### 2 97593 #### [facility],[address] [place] [address] 86721 Albumin/Globulin [Mass ratio] 1.0 {ratio} Normal 0.9 - 1.6 [facility] Comment on above: Performed By: #### 2 90852 #### [facility],[address] [place] [address] 00308 ALK PHOS 81 U/L Normal 46 - 116 [facility] Comment on above: Performed By: #### 2 53315 #### [facility],[address] [place] [address] 16830 ALT [Catalytic activity/Vol] 19 U/L Normal 16 - 63 [facility] Comment on above: Performed By: #### 2 61646 #### [facility],[address] [place] [address] 99151 Anion gap [Moles/Vol] 12 mmol/L Normal 10 - 20 [facility] Comment on above: Performed By: #### 2 74270 #### [facility],[address] [place] [address] 08272 AST [Catalytic activity/Vol] 13 U/L Normal 13 - 39 [facility] Comment on above: Performed By: #### 2 93568 #### [facility],[address] [place] [address] 77879 B/C RATIO 12 ratio Normal 0 - 30 [facility] Comment on above: Performed By: #### 2 42356 #### [facility],[address] [place] [address] 36024 Bilirubin [Mass/Vol] 0.3 mg/dL Normal 0.2 - 1.0 [facility] Comment on above: Performed By: #### 2 10637 #### [facility],[address] [place] [address] 29618 Calcium [Mass/Vol] 8.5 mg/dL Normal 8.5 - 10.1 [facility] Comment on above: Performed By: #### 2 04297 #### [facility],[address] [place] [address] 57328 Chloride [Moles/Vol] 104 mmol/L Normal 98 - 107 [facility] Comment on above: Performed By: #### 2 28765 #### [facility],[address] [place] [address] 06766 CMP with eGFR Normal [facility] Comment on above: Result Comment: COMP REHENSIVE METABOLIC PANEL Performed By: #### 2 30972 #### [facility],[address] [place] [address] 81839 CO2 [Moles/Vol] 29.3 mmol/L Normal 21.0 - 32.0 [facility] Comment on above: Performed By: #### 2 97332 #### [facility],[address] [place] [address] 63198 Creatinine [Mass/Vol] 0.91 mg/dL Normal 0.55 - 1.02 [facility] Comment on above: Performed By: #### 2 60816 #### [facility],[address] [place] [address] 41198 GFR/1.73 sq M.predicted among non-blacks MDRD (S/P/Bld) [Vol rate/Area] mL/min/{1.73_m2} Normal 60 - 999 [facility] Comment on above: Performed By: #### 2 52297 #### [facility],[address] [place] [address] Result Comment: ACCO RDING TO THE NATIONAL KIDNEY DISEASE EDUCATION PROGRAM(NKDE), A NORMAL eGFR IS A VALUE GREATER THAN OR EQUAL TO 60 ML/MIN/1.73 SQ METERS. CHRONIC KIDNEY DISEASE: <60mL/MIN/1.73 SQ METERS KIDNEY FAILURE: <15mL/MIN/1.73 SQ METERS THIS TEST SHOULD ONLY BE USED FOR PATIENTS 18 YEARS OF AGE AND OLDER. Globulin (S) [Mass/Vol] 3.2 g/dL Normal 1.5 - 3.8 [facility] Comment on above: Performed By: #### 2 39707 #### [facility],[address] [place] [address] 39287 Glucose [Mass/Vol] 91 mg/dL Normal 74 - 106 [facility] Comment on above: Performed By: #### 2 93885 #### [facility],[address] [place] [address] 75370 Potassium [Moles/Vol] 3.7 mmol/L Normal 3.5 - 5.1 [facility] Comment on above: Performed By: #### 2 05500 #### [address] [address] Protein [Mass/Vol] 6.3 g/dL Low 6.4 - 8.2 [facility] Comment on above: Performed By: #### 2 10170 #### [facility],[address] [place] [address] 90939 Sodium [Moles/Vol] 142 mmol/L Normal 136 - 145 [facility] Comment on above: Performed By: #### 2 42899 #### [facility],[address] [place] [address] 70400 Urea nitrogen [Mass/Vol] 11 mg/dL Normal 7 - 18 [facility] Comment on above: Performed By: #### 2 55414 #### [facility],[address] [place] [address] ED FACILITY CODING SUMMARYon 12-15-2023 ED FACILITY CODING SUMMARY Facility Coding Facility Coding Summary [address] [address] [id number] 12/14/2023 Patient: DIANA LEE Sex: Female : 1970 Age: 53y Providers: Cole Puga D.O. DIAGNOSTIC WORKUP Chief Complaint CHEST PAIN. -- Cole Puga D.O. Principal Diagnosis ICD-10 Codes PROCEDURES Procedures from Providers: EKG (Insufficient documentation to return CPT code.) -- Cole Puga D.O. Procedures from Nurses/Facility: EKG (CPT: 93371) Blood Draw (CPT: 22270) Blood Draw (CPT: 08510) [facility] 228[facility]32 1 of 2 Facility Coding This is a partial abstract of information documented in the full record. Packaging Line Attendant must use independent judgment in selecting codes. CPT copyright 2022 [employer]. All Rights Reserved. 2 of 2 Normal [facility] ED MED ADMINISTRATION DETAIL on 12-15-2023 ED MED ADMINISTRATION DETAIL Mailroom Assistant Medication Administration Record [address] [address] [id number] 12/14/2023 Patient: DIANA LEE Sex: Female : 1970 Age: 53y MEASUREMENTS: Wt: 95.3 kg ALLERGIES: No known drug allergies Medication Ordered Medication Administration Date/Time 1 of 1 Normal [facility] ED NURSES CLINICAL NOTEon ED NURSES CLINICAL NOTE Nurse Narrative Nurse Clinical Narrative [address] [address] [id number] 12/14/2023 Patient: DIANA LEE Sex: Female : [...] 98% Temperature: 98.9 F. Pain level now 05/04. -- 16:37 12/14/23 EDT Damir Condon R.N. [...] no known drug allergies -- 16:35 12/14/23 EDT Damir Condon R.N. Problems: Benign essential hypertension -- 16:35 12/14/23 EDT Damir Condon R.N. Hypothyroidism -- 16:35 12/14/23 EDT Damir Condon R.N. ADDITIONAL SURGERIES: -- 16:35 12/14/23 EDT Damir Condon R.N. Bariatric Surgery -- 16:35 12/14/23 BRYSONT [...] factors identified include dizziness. -- 16:38 12/14/23 EDT Damir Condon R.N. 2 of 4 Nurse Narrative Interventions 16:24 12/14/23. Advanced care plan discussed with patient. Patient does not have advanced directive. -- 16:38 12/14/23 EDT Damir Condon R.N. PHYSICAL ASSESSMENT 16:39 12/14/23. [...] saline post blood draw. -- 19:08 12/14/23 EDT Damir Condon R.N. DISPOSITION / DISCHARGE 20:44 12/14/23. Site #1 removed upon discharge. Bandage applied. -- 20:44 12/14/23 EDT Damir Condon R.N. Departure time: 20:45 12/14/2023. Condition at departure: improved. No learning barriers present. Discharge instructions provided and reviewed with the patient. The patient was discharged home and accompanied by family. The patient left ambulatory and via private vehicle. Spouse driving. -- 20:45 12/14/23 EDT Damir Condon R.N. 20:45 (more content not included)... Normal [facility] ED ORDER SHEET (CPOE ONLY)on 12-15-2023 ED ORDER SHEET (CPOE ONLY) Order Sheet Order Sheet [address] [place] [address] [id number] 12/14/2023 Patient: DIANA LEE Sex: Female : 1970 Age: 53y MEASUREMENTS: Wt: 95.3 kg ALLERGIES: No known drug allergies MEDICATION/IV/DRIP/FLUID ORDERS Order Description Priority Entered Acknowledged Completed LAB ORDERS Order Description Priority Entered Acknowledged Collected Completed CBC w Diff Stat Stat 16:46 12/14/2023 16:49 12/14/2023 Damir Bailno D.OTonny RTonnyNTonny BNP Stat Stat 16:46 12/14/2023 16:49 12/14/2023 Damir Bailon D.OTonny R.N. CMP Stat Stat 16:46 12/14/2023 16:49 12/14/2023 Damir Bailon D.O. R.NTonny Troponin-I (Sched: q3h Stat 16:46 12/14/2023 16:49 12/14/2023 X2); Stat 1 of 2 Damir Bailon, 1 of 3 Order Sheet Juan. RGlo Troponin-I (Sched: q3h Stat 16:46 12/14/2023 X2); Stat 2 of 2 Cole Puga D.O. D-Dimer Stat Stat 16:46 12/14/2023 16:49 12/14/2023 Damir Bailon D.O. RGlo EKG - ED Stat Stat 16:46 12/14/2023 [...] 16:46 12/14/2023 16:50 12/14/2023 Damir Bailon D.O. RGlo Oxygen titrate to 92% 16:46 12/14/2023 16:50 12/14/2023 Damir Bailon D.O. RGlo Natural Resource Manager 16:46 12/14/2023 16:50 12/14/2023 Damir Bailon D.O. RGlo Vital signs every 15 16:46 12/14/2023 16:50 12/14/2023 minutes Damir Bailon D.O. RGlo [Electronically signed by Cole Puga D.O. (12/15/2023 00:39 EDT)] 3 of 3 Normal [facility] ED PHYS CODING ABST SUMMARYo n 12-15-2023 ED PHYS CODING ABST SUMMARY Coding Summary Coding Summary [address] [place] [address] [id number] 12/14/2023 Patient: DIANA LEE Sex: Female : 1970 Age: 53y CPT Codes EKG (Insufficient documentation to return CPT code.) This is a partial abstract of information documented in the full record. Packaging Line Attendant must use independent judgment in selecting codes. CPT copyright 2022 [employer]. All Rights Reserved. 1 of 1 Normal [facility] ED PHYSICIAN CLINICAL REPORT on 12-15-2023 ED PHYSICIAN CLINICAL REPORT Narrative Physician Clinical Narrative [address] [place] [address] [id number] 12/14/2023 Patient: DIANA LEE Sex: Female : [...] approximately 10 years ago). REVIEW OF SYSTEMS Narrative CONSTITUTIONAL: The patient has had fever [...] Final Above high normal EDT 12/14/2023 17:05 Cochran # 0.48 x10/UL 0.20 - 1.00 Final [...] Received Comments (more content not included)... Normal [facility] ED SUPER BILLon 12-15-2023 [facility] [address] [place] [address] [id number] 12/14/2023 Patient: DIANA LEE Sex: Female : 1970 Age: 53y Item Professional Category Description Facility Code Code Quantity Fee Total Nurse/E/M EMERGENCY 879826 1 $0.00 $0.00 DEPARTMENT VISIT HIGH/URGENT SEVERITY (53706-71) Grand Total $0.00 Providers Cole Puga D.O. Chief Complaint CHEST PAIN. Principal Diagnosis 1 of 1 Normal [facility] ED VISIT SUMMARYon ED VISIT SUMMARY Visit Overview Visit Overview [address] [place] [address] [id number] 12/14/2023 Patient: DIANA LEE Sex: Female : [...] PAIN CHARACTERIZED DISCOMFORT 3 of 3 Normal [facility] CBC + DIFFon 12-14-2023 Baso # 0.03 x10EE3/UL Normal 0.00 - 0.10 [facility] Comment on above: Performed By: #### 2 35746 #### [facility],[address] [place] [address] 06482 Basophils/100 WBC (Bld) 0.3 % Normal 0.0 - 2.0 [facility] Comment on above: Performed By: #### 2 92270 #### [facility],[address] [place] [address] 20680 CBC + DIFF Normal [facility] Comment on above: Result Comment: CBC- COMPLETE BLOOD COUNT Performed By: #### 2 70429 #### [facility],[address] [place] [address] 71476 EO # 0.10 x10EE3/UL Normal 0.00 - 0.50 [facility] Comment on above: Performed By: #### 2 06506 #### [facility],[address] [place], [place] [phone] Eosinophils/100 WBC (Bld) 0.9 % Normal 0.0 - 7.0 [facility] Comment on above: Performed By: #### 2 34132 #### [facility],[address] [place] [address] Erythrocyte distribution width (RBC) [Ratio] 13.5 % Normal 12.0 - 15.6 [facility] Comment on above: Performed By: #### 2 95413 #### [facility],[address] [place] [address] Hematocrit (Bld) [Volume fraction] 47.7 % High 34.0 - 46.0 [facility] Comment on above: Performed By: #### 2 72215 #### [facility],[address] [place] [address] Hemoglobin (Bld) [Mass/Vol] 16.2 g/dL High 12.0 - 16.0 [facility] Comment on above: Performed By: #### 2 74170 #### [facility],[address] [place], [place] [phone] Lymph # 2.86 x10EE3/UL High 0.80 - 2.80 [facility] Comment on above: Performed By: #### 2 76931 #### [facility],[address] [place], [place] [phone] Lymphocytes/100 WBC (Bld) 26.7 % Normal 20.0 - 45.0 [facility] Comment on above: Performed By: #### 2 00578 #### [place] [phone] MANUAL DIFF N/A Normal [facility] Comment on above: Performed By: #### 2 88208 #### [facility],[address] [place], [place] [phone] MCH (RBC) [Entitic mass] 30 pg Normal 27 - 33 [facility] Comment on above: Performed By: #### 2 45580 #### [place] [address] MCHC 34 X10 3 Normal 32 - 36 [facility] Comment on above: Performed By: #### 2 16741 #### [facility],[address] [place] [address] MCV (RBC) [Entitic vol] 90 fL Normal 80 - 99 [facility] Comment on above: Performed By: #### 2 61707 #### [facility],[address] [place] [address] Cochran # 0.48 x10EE3/UL Normal 0.20 - 1.00 [facility] Comment on above: Performed By: #### 2 06003 #### [place] [address] MONOS % 4.5 % Normal 0.0 - 10.0 [facility] Comment on above: Performed By: #### 2 81540 #### [place] [address] Morphology Cesar (Bld) [Interp] N/A Normal [facility] Comment on above: Performed By: #### 2 93780 #### [place] [address] Neut # 7.24 x10EE3/UL High 1.50 - 7.10 [facility] Comment on above: Performed By: #### 2 13928 #### [place] [address] Neutrophils/100 WBC (Bld) 67.6 % Normal 46.0 - 76.0 [facility] Comment on above: Performed By: #### 2 21087 #### [place] [address] PLATELET 352 x10EE3/UL Normal 150 - 450 [facility] Comment on above: Performed By: #### 2 47532 #### [facility],[address] [place] [address] 33717 Platelet mean volume (Bld) [Entitic vol] 7.0 fL Normal 6.6 - 10.5 [facility] Comment on above: Result Comment: AUTO MATED DIFFERENTIAL Performed By: #### 2 76462 #### [facility],[address] [place] [address] RBC 5.32 x 10EE6/UL High 4.10 - 5.30 [facility] Comment on above: Performed By: #### 2 35544 #### [facility],[address] [place], [place] [phone] WBC 10.7 x 10EE3/UL Normal 4.5 - 10.8 [facility] Comment on above: Performed By: #### 2 55799 #### [facility],[address] [place], [place] [phone] CHEST 1 VIEWon 12-14-2023 CHEST 1 VIEW [place] [address] Patient: DIANA LEE Phone#: : [phone] Age: 53 Gender: F Pt. Type: ER Account: [id number] Location: [facility] Ordering: COLE PUGA Exam Date: 12/14/2023/16:51 Family Phys: Charge Code: 519304 Physician: Tripp Order #: [id number] Dose#: PROCEDURE: X-RAY CHEST 1 VIEW COMPARISON: [...] Hsieh MD on 12/14/2023 at 22:37 Normal [facility] CMP with eGFRon 12-14-2023 AGE 53 years Normal [facility] Comment on above: Performed By: #### 2 64180 #### [facility],[address] [place] [address]64[address] Albumin [Mass/Vol] 3.9 g/dL Normal 3.4 - 5.0 [facility] Comment on above: Performed By: #### 2 79430 #### [facility],[address] [place] [address] 81634 Albumin/Globulin [Mass ratio] 1.1 {ratio} Normal 0.9 - 1.6 [facility] Comment on above: Performed By: #### 2 38835 #### [facility],[address] [place] [address] 35353 ALK PHOS 117 U/L High 46 - 116 [facility] Comment on above: Performed By: #### 2 81087 #### [facility],[address] [place] [address] 46660 ALT [Catalytic activity/Vol] 25 U/L Normal 16 - 63 [facility] Comment on above: Performed By: #### 2 32470 #### [facility],[address] [place] [address] 87919 Anion gap [Moles/Vol] 15 mmol/L Normal 10 - 20 [facility] Comment on above: Performed By: #### 2 32939 #### [facility],[address] [place] [address] 76116 AST [Catalytic activity/Vol] 12 U/L Low 13 - 39 [facility] Comment on above: Performed By: #### 2 06022 #### [facility],[address] [place] [address] 85525 B/C RATIO 19 ratio Normal 0 - 30 [facility] Comment on above: Performed By: #### 2 45063 #### [facility],[address] [place] [address] 34876 Bilirubin [Mass/Vol] 0.4 mg/dL Normal 0.2 - 1.0 [facility] Comment on above: Performed By: #### 2 61512 #### [facility],[address] [place] [address] 52658 Calcium [Mass/Vol] 8.9 mg/dL Normal 8.5 - 10.1 [facility] Comment on above: Performed By: #### 2 82504 #### [facility],[address] [place], [place] [phone] Chloride [Moles/Vol] 100 mmol/L Normal 98 - 107 [facility] Comment on above: Performed By: #### 2 44738 #### [facility],[address] [place], [place] [phone] CMP with eGFR Normal [facility] Comment on above: Result Comment: COMP REHENSIVE METABOLIC PANEL Performed By: #### 2 83896 #### [facility],[address] [place] [address] 02260 CO2 [Moles/Vol] 28.7 mmol/L Normal 21.0 - 32.0 [facility] Comment on above: Performed By: #### 2 58745 #### [facility],[address] [place] [address] 57441 Creatinine [Mass/Vol] 0.88 mg/dL Normal 0.55 - 1.02 [facility] Comment on above: Performed By: #### 2 21800 #### [facility],[address] [place] [address] 27897 GFR/1.73 sq M.predicted among non-blacks MDRD (S/P/Bld) [Vol rate/Area] mL/min/{1.73_m2} Normal 60 - 999 [facility] Comment on above: Performed By: #### 2 14924 #### [facility],[address] [place] [address] Result Comment: ACCO RDING TO THE NATIONAL KIDNEY DISEASE EDUCATION PROGRAM(NKDE), A NORMAL eGFR IS A VALUE GREATER THAN OR EQUAL TO 60 ML/MIN/1.73 SQ METERS. CHRONIC KIDNEY DISEASE: <60mL/MIN/1.73 SQ METERS KIDNEY FAILURE: <15mL/MIN/1.73 SQ METERS THIS TEST SHOULD ONLY BE USED FOR PATIENTS 18 YEARS OF AGE AND OLDER. Globulin (S) [Mass/Vol] 3.7 g/dL Normal 1.5 - 3.8 [facility] Comment on above: Performed By: #### 2 35011 #### [place] [address] Glucose [Mass/Vol] 93 mg/dL Normal 74 - 106 [facility] Comment on above: Performed By: #### 2 25243 #### [place] [address] Potassium [Moles/Vol] 3.3 mmol/L Low 3.5 - 5.1 [facility] Comment on above: Performed By: #### 2 41894 #### [place] [address] Protein [Mass/Vol] 7.6 g/dL Normal 6.4 - 8.2 [facility] Comment on above: Performed By: #### 2 14520 #### [facility],[address] [place], [place] [id number] Sodium [Moles/Vol] 140 mmol/L Normal 136 - 145 [facility] Comment on above: Performed By: #### 2 88026 #### [place] [id number] Urea nitrogen [Mass/Vol] 17 mg/dL Normal 7 - 18 [facility] Comment on above: Performed By: #### 2 72457 #### [place] [id number] D-DIMER, QUANTITATIVEon - D-DIMER QUANT <200 Normal 0 - 230 [facility] Comment on above: Performed By: #### 2 52308 #### [facility],[address] [place] [address] D-DIMER, QUANTITATIVE Normal [facility] Comment on above: Result Comment: NIGEL T D-DIMER Performed By: #### 2 91662 #### [facility],[address] [place] [address] 30017 NT-proBNPon 12-14-2023 Natriuretic peptide B (Bld) [Mass/Vol] 68 pg/mL Normal 0 - 125 [facility] Comment on above: Performed By: #### 2 32822 #### [facility],[address] [place] [address] 65539 TROPONINon 12-14-2023 HS TROPONIN 9.5 pg/mL Normal 0.0 - 51.4 [facility] Comment on above: Performed By: #### 2 92035 #### [facility],[address] [place] [address] 61745 HS TROPONIN 7.0 pg/mL Normal 0.0 - 51.4 [facility] Comment on above: Performed By: #### 2 97470 #### [facility],[address] [place] [address] Basophil percentageOrdered B y: Shraddha Holley on 05-27-2023 Basophil percentage < 1.0 mg/dL 0.55-1.02 [facility] No Panel InformationOrdered By: Shraddha Holley on 05-27-2023 Bedside Estimated GFR (eGFR) > 60.0000 mL/min >60 [facility] DHEA-S (DEHYDROEPIANDROSTERO NE SULFATE) ([id number])Ordered By: Bag Press Operator on 09-21-2022 DHEA-S [Mass/Vol] 71.7 ug/dL Normal 41.2-243.7 Compreh ensive Internal Medicine; [facility] Work Phone: Comment on above: PATIENT WAS FASTINGP ERFORMED BY: CB [facility] Mrubzb3051 Allen RoadDublin [place] [id number] BY: [facility] [address] [id number] FERRITIN (16419)Ordered By: Bag Press Operator on 09-21-2022 Ferritin [Mass/Vol] 74 ng/mL Normal 15-150 [facility] Internal Medicine; [facility] Work Phone: Comment on above: PATIENT WAS FASTINGP ERFORMED BY: CB [facility] Rhptym6106 [address] RoadDublin [place] [id number] BY: [address] [id number] IRON & TOTAL IRON BINDING CA PACITY (59562)Ordered By: Bag Press Operator on 09-21-2022 Iron [Mass/Vol] 135 ug/dL Normal 27-159 [facility] Internal Medicine; [facility] Work Phone: Comment on above: PATIENT WAS FASTINGP ERFORMED BY: CB [facility] Nunrac7[address] RoadDublin [place] [id number] BY: [address] [id number] Iron binding capacity [Mass/Vol] 301 ug/dL Normal 250-450 [facility]; [facility] Work Phone: Comment on above: PATIENT WAS FASTINGP ERFORMED BY: CB [facility] Rssqcq3836 [address] RoadDublin [place] [id number] BY: [facility] [id number] Iron binding capacity.unsaturated [Mass/Vol] 166 ug/dL Normal 131-425 [facility]; [facility] Work Phone: Comment on above: PATIENT WAS FASTINGP ERFORMED BY: CB [facility] Oxuunf3501 [address] RoadDublin [place] [id number] BY: [address] [id number] Iron saturation [Mass fraction] 45 % Normal 15-55 [facility]; [facility] Work Phone: Comment on above: PATIENT WAS FASTINGP ERFORMED BY: [employer] Htmqqh5397 [facility] [id number] BY: [employer] [id number] TBG (THYROXINE BINDING GLOB) (92895)Ordered By: Bag Press Operator on 09-21-2022 TBG [Mass/Vol] 30 ug/mL Normal 13-39 [facility] Internal Medicine; [facility] Work Phone: Comment on above: PATIENT WAS FASTINGP ERFORMED BY: [employer] [facility] [id number] BY: [employer] [id number] THYROXINE FREE (04867)Ordere d By: Bag Press Operator on 09-21-2022 Free T4 [Mass/Vol] 0.95 ng/dL Normal 0.82-1.77 [facility] Internal Medicine; [facility] Work Phone: Comment on above: PATIENT WAS FASTINGP ERFORMED BY: [employer] [facility] [id number] BY: [employer] [id number] TSH (THYROID STIMULATING HOR TAYE) (98551)Ordered By: Bag Press Operator on 09-21-2022 TSH Qn 2.330 {uIU/mL} Normal 0.450-4.50 0 [facility]; [facility] Work Phone: Comment on above: PATIENT WAS FASTINGP ERFORMED BY: SkyFuellin6370 [facility] [id number] BY: [employer] [id number] CALCIFEDIOL (66542)Ordered B y: Bag Press Operator on 07-06-2022 25-hydroxyvitamin D [Mass/Vol] 53.9 ng/mL Normal 30.0-100.0 [facility]; [facility] Work Phone: Comment on above: Vitamin D deficiency has been defined by the [place] ofMedicine and an Endocrine Society practice guideline as alevel of serum 25-OH vitamin D less than 20 ng/mL (1,2).The Endocrine Society went on to further define vitamin Dinsufficiency as a level between 21 and 29 ng/mL (2).1. IOM ([place] of Medicine). 2010. Dietary reference intakes for calcium and D. [place]: The National Academies Press.2. Brice MF, Oul FRANCIS, Jennifer JIMENEZ, et al. Evaluation, treatment, and prevention of vitamin D deficiency: an Endocrine Society clinical practice guideline. JCEM. 2010; 96(7):1911-30. PATIENT WAS FASTINGP ERFORMED BY: CB [facility] Qglhfi2678 [address] RoadDublin [place] [id number] CBC, PLATELETS & AUT DIFF (6 2657)Ordered By: Bag Press Operator on 07-06-2022 Basophils (Bld) [#/Vol] 0.1 10*3/uL Normal 0.0-0.2 [facility]; [facility] Work Phone: Comment on above: PATIENT WAS FASTINGP ERFORMED BY: CB [facility] Qjkclu2166 [address] RoadDublin [place] [id number] Basophils/100 WBC (Bld) 1 % Normal [facility]; [facility] Work Phone: Comment on above: PATIENT WAS FASTINGP ERFORMED BY: CB [facility] Rdlubw9657 [address] RoadDublin [place] [id number] Eosinophils (Bld) [#/Vol] 0.1 10*3/uL Normal 0.0-0.4 [facility]; [facility] Work Phone: Comment on above: PATIENT WAS FASTINGP ERFORMED BY: CB [facility] Kohmwt1460 [address] RoadDublin [place] [id number] Eosinophils/100 WBC (Bld) 1 % Normal [facility]; [facility] Work Phone: Comment on above: PATIENT WAS FASTINGP ERFORMED BY: CB [facility] Zadoia6[address] RoadDublin [place] [id number] Erythrocyte distribution width (RBC) [Ratio] 12.5 % Normal 11.7-15.4 [facility]; [facility] Work Phone: Comment on above: PATIENT WAS FASTINGP ERFORMED BY: AMIRA Zoltan Peter[address] [facility]in [place] [id number] Hematocrit (Bld) [Volume fraction] 43.6 % Normal 34.0-46.6 [facility]; [facility] Work Phone: Comment on above: PATIENT WAS FASTINGP ERFORMED BY: AMIRA [facility] Iaxins7953 Allen RoadCape Fear/Harnett Health [id number] Hemoglobin (Bld) [Mass/Vol] 14.2 g/dL Normal 11.1-15.9 [facility]; [facility] Work Phone: Comment on above: PATIENT WAS FASTINGP ERFORMED BY: AMIRA [facility] Isucmk9222 Allen RoadCape Fear/Harnett Health [id number] Immature granulocytes (Bld) [#/Vol] 0.0 10*3/uL Normal 0.0-0.1 [facility]; [facility] Work Phone: Comment on above: PATIENT WAS FASTINGP ERFORMED BY: AMIRA Felisa Fvdogt[address] [facility]in [place] [id number] Immature granulocytes/100 WBC (Bld) 1 % Normal [facility]; [facility] Work Phone: Comment on above: PATIENT WAS FASTINGP ERFORMED BY: AMIRA Labisabel Vdmpsu[address] [facility] [id number] Lymphocytes (Bld) [#/Vol] 2.1 10*3/uL Normal 0.7-3.1 [facility]; [facility] Work Phone: Comment on above: PATIENT WAS FASTINGP ERFORMED BY: AMIRA [facility] Tnrsmk[address] [facility]blin [place] [id number] Lymphocytes/100 WBC (Bld) 28 % Normal [facility]; [facility] Work Phone: Comment on above: PATIENT WAS FASTINGP ERFORMED BY: AMIRA LabcoMorristown Medical CenterXyjtgj4521 [facility] [id number] MCH (RBC) [Entitic mass] 29.3 pg Normal 26.6-33.0 [facility]; [facility] Work Phone: Comment on above: PATIENT WAS FASTINGP ERFORMED BY: AMIRA Roberto Wgogib5818 [facility] [id number] MCHC (RBC) [Mass/Vol] 32.6 g/dL Normal 31.5-35.7 [facility] prehensive Internal Medicine; [facility] Work Phone: Comment on above: PATIENT WAS FASTINGP ERFORMED BY: AMIRA [facility] Voyfdj7944 [facility] [id number] MCV (RBC) [Entitic vol] 90 fL Normal 79-97 [facility]; [facility] Work Phone: Comment on above: PATIENT WAS FASTINGP ERFORMED BY: AMIRA [facility] Jixqum9000 [facility] [id number] Monocytes (Bld) [#/Vol] 0.5 10*3/uL Normal 0.1-0.9 [facility]; [facility] Work Phone: Comment on above: PATIENT WAS FASTINGP ERFORMED BY: AMIRA [facility] Xqylpw8108 [facility] [id number] Monocytes/100 WBC (Bld) 7 % Normal [facility]; [facility] Work Phone: Comment on above: PATIENT WAS FASTINGP ERFORMED BY: [facility] Sdyyad7073 [facility] [id number] Neutrophils (Bld) [#/Vol] 4.8 10*3/uL Normal 1.4-7.0 [facility]; [facility] Work Phone: Comment on above: PATIENT WAS FASTINGP ERFORMED BY: [facility] Nxtfef9785 [facility] [id number] Neutrophils/100 WBC (Bld) 62 % Normal [facility]; [facility] Work Phone: Comment on above: PATIENT WAS FASTINGP ERFORMED BY: AMIRA [facility] Ldlkzf5408 [address] RoadDublin [place] [id number] Platelets (Bld) [#/Vol] 280 10*3/uL Normal 150-450 [facility]; [facility] Work Phone: Comment on above: PATIENT WAS FASTINGP ERFORMED BY: AMIRA [facility] Ibxefd4536 [address] RoadDublin [place] [id number] RBC (Bld) [#/Vol] 4.85 10*6/uL Normal 3.77-5.28 [facility] Internal Medicine; [facility] Work Phone: Comment on above: PATIENT WAS FASTINGP ERFORMED BY: AMIRA Labcotameka MarieLcmuvh3994 [address] RoadDublin [place] [id number] WBC (Bld) [#/Vol] 7.6 10*3/uL Normal 3.4-10.8 [facility] Internal [facility]; [facility] Work Phone: Comment on above: PATIENT WAS FASTINGP ERFORMED BY: AMIRA Labcotameka Hppjrp[address] [facility]bl[facility] [place] [id number] LIPID PANEL (67553)Ordered B y: Bag Press Operator on 07-06-2022 Cholesterol [Mass/Vol] 208 mg/dL Abnormal 100-199 [facility]; [facility] Work Phone: Comment on above: PATIENT WAS FASTINGP ERFORMED BY: AMIRA Labcotameka Mgovrm62[address] [facility]bl[facility] [place] [id number] Cholesterol in HDL [Mass/Vol] 51 mg/dL Normal [facility]; [facility] Work Phone: Comment on above: PATIENT WAS FASTINGP ERFORMED BY: AMIRA [facility] Rzljrb0256 [address] RoadDublin [place] [id number] Triglyceride [Mass/Vol] 150 mg/dL Abnormal 0-149 [facility]; [facility] Work Phone: Comment on above: PATIENT WAS FASTINGP ERFORMED BY: AMIRA Labcotameka Wlsgux0157 [address] RoadDublin [place] [id number] LIPID PANEL (81451) 27 mg/dL Normal 5-40 [facility] Instituteensive [facility]; [facility] Work Phone: Comment on above: PATIENT WAS FASTINGP ERFORMED BY: AMIRA [facility] Sxiovv3481 [address] RoadDublin [place] [id number] LIPID PANEL (33533) 130 mg/dL Abnormal 0-99 [facility] Internal [facility]; [facility] Work Phone: Comment on above: PATIENT WAS FASTINGP ERFORMED BY: CB [facility] Wrssux4402 [address] RoadDublin [place] [id number] LIPID PANEL (86989) 2.5 {ratio} Normal 0.0-3.2 [facility] Internal Medicine; [facility] Work Phone: Comment on above: LDL/HDL Ratio Men Wo men 1/2 Avg.Risk 1.0 1.5 Avg.Risk 3.6 3.2 2X Avg.Risk 6.2 5.0 3X Avg.Risk 8.0 6.1 PATIENT WAS FASTINGP ERFORMED BY: AMIRA [facility] Kdslmh3765 [address] RoadDublin [place] [id number] METABOLIC PANEL, COMPREHENSI VE (66930)Ordered By: Bag Press Operator on 07-06-2022 Albumin [Mass/Vol] 4.0 g/dL Normal 3.8-4.9 [facility] Internal [facility]; [facility] Work Phone: Comment on above: PATIENT WAS FASTINGP ERFORMED BY: AMIRA [facility] Bvndha3305 [address] RoadDublin [place] [id number] Albumin/Globulin [Mass ratio] 1.7 {ratio} Normal 1.2-2.2 [facility] Internal Medicine; [facility] Work Phone: Comment on above: PATIENT WAS FASTINGP ERFORMED BY: CB [facility] Ajtwtc0455 [address] RoadDublin [place] [id number] ALP [Catalytic activity/Vol] 98 U/L Normal 44-121 [facility]; [facility] Work Phone: Comment on above: PATIENT WAS FASTINGP ERFORMED BY: CB [facility] Gomcvf7317 [address] RoadDublin [place] [id number] ALT [Catalytic activity/Vol] 17 U/L Normal 0-32 [facility]; [facility] Work Phone: Comment on above: PATIENT WAS FASTINGP ERFORMED BY: CB [facility] Cywaml4575 [address] RoadDublin [place] [id number] AST [Catalytic activity/Vol] 16 U/L Normal 0-40 [facility]; [facility] Work Phone: Comment on above: PATIENT WAS FASTINGP ERFORMED BY: CB [facility] Mctsit9146 [address] RoadDublin [place] [id number] Bilirubin [Mass/Vol] 0.3 mg/dL Normal 0.0-1.2 Comp rehensive Internal Medicine; [facility] Work Phone: Comment on above: PATIENT WAS FASTINGP ERFORMED BY: CB [facility] Pxitcb1907 [address] RoadDublin [place] [id number] Calcium [Mass/Vol] 9.1 mg/dL Normal 8.7-10.2 [facility] Internal [facility]; [facility] Work Phone: Comment on above: PATIENT WAS FASTINGP ERFORMED BY: CB [facility] Xgsvbd5091 [address] RoadDublin [place] [id number] Chloride [Moles/Vol] 103 mmol/L Normal 96-106 Comp rehensive Internal Medicine; [facility] Work Phone: Comment on above: PATIENT WAS FASTINGP ERFORMED BY: CB [facility] Wboutw8544 [address] RoadDublin [place] [id number] CO2 [Moles/Vol] 25 mmol/L Normal 20-29 [facility] Internal Medicine; [facility] Work Phone: Comment on above: PATIENT WAS FASTINGP ERFORMED BY: CB [facility] Oyfhig6999 [address] RoadDublin [place] [id number] Creatinine [Mass/Vol] 0.73 mg/dL Normal 0.57-1.00 [facility]erens[facility]; [facility] Work Phone: Comment on above: PATIENT WAS FASTINGP ERFORMED BY: CB [facility] Zvpwhq9782 [address] RoadDublin [place] [id number] GFR/1.73 sq M.predicted among non-blacks MDRD (S/P/Bld) [Vol rate/Area] 99 mL/min/{1.73_m2} Normal Comprehensiv e Internal Medicine; [facility] Work Phone: Comment on above: PATIENT WAS FASTINGP ERFORMED BY: AMIRA Labisabel Cuxmyn3592 [address] RoadDublin [place] [id number] Globulin (S) [Mass/Vol] 2.3 g/dL Normal 1.5-4.5 [facility]; [facility] Work Phone: Comment on above: PATIENT WAS FASTINGP ERFORMED BY: AMIRA [facility] Anhpxo1650 [address] RoadDublin [place] [id number] Glucose [Mass/Vol] 80 mg/dL Normal 70-99 [facility] healthive [facility]; [facility] Work Phone: Comment on above: PATIENT WAS FASTINGP ERFORMED BY: AMIRA Labsamaritan hospital Rjwoaq5943 [address] RoadDuin [place] [id number] Potassium [Moles/Vol] 4.5 mmol/L Normal 3.5-5.2 [facility] prehensive Internal Medicine; [facility] Work Phone: Comment on above: PATIENT WAS FASTINGP ERFORMED BY: AMIRA Labsamaritan hospital Uirjrp[address] [facility]in [place] [id number] Protein [Mass/Vol] 6.3 g/dL Normal 6.0-8.5 [facility]; [facility] Work Phone: Comment on above: PATIENT WAS FASTINGP ERFORMED BY: AMIRA Labsamaritan hospital Ixreyp[address] [facility]bl[facility] [place] [id number] Sodium [Moles/Vol] 140 mmol/L Normal 134-144 [facility] healthive [facility]; [facility] Work Phone: Comment on above: PATIENT WAS FASTINGP ERFORMED BY: AMIRA Labsamaritan hospital Zmjgmm8151 [address] RoadDublin [place] [id number] Urea nitrogen [Mass/Vol] 10 mg/dL Normal 6-24 [facility]; [facility] Work Phone: Comment on above: PATIENT WAS FASTINGP ERFORMED BY: CB [facility]Bar[facility] Hospital6[address] RoadDublin [place] [id number] Urea nitrogen/Creatinine [Mass ratio] 14 mg/mg Normal 9-23 [facility]; [facility] Work Phone: Comment on above: PATIENT WAS FASTINGP ERFORMED BY: CB [facility] Ooyucx8966 [address] RoadDublin [place] [id number] PARATHORMONE ([id number])Ordered By: Bag Press Operator on 07-06-2022 Parathyrin.intact [Mass/Vol] 31 pg/mL Normal 15-65 [facility]; [facility] Work Phone: Comment on above: PATIENT WAS FASTINGP ERFORMED BY: [employer] [facility] Hsyfay5875 [address] RoadDublin [place] [id number] THYROXINE FREE (70996)Ordere d By: Bag Press Operator on 07-06-2022 Free T4 [Mass/Vol] 0.89 ng/dL Normal 0.82-1.77 [facility] Internal Medicine; [facility] Work Phone: Comment on above: PATIENT WAS FASTINGP ERFORMED BY: [employer] [facility] Vxcedo5025 [address] RoadDublin [place] [id number] TSH (THYROID STIMULATING HOR TAYE) (27124)Ordered By: Bag Press Operator on 07-06-2022 TSH Qn 5.240 {uIU/mL} Abnormal 0.450-4.50 0 [facility]; [facility] Work Phone: Comment on above: PATIENT WAS FASTINGP ERFORMED BY: [employer] [facility] Dtzjef9634 [address] RoadDublin [place] [id number] CALCIFEDIOL (49969)Ordered B y: Bag Press Operator on 10-26-2021 25-hydroxyvitamin D [Mass/Vol] 45.2 ng/mL Normal 30.0-100.0 [facility]; [facility] Work Phone: Comment on above: Vitamin D deficiency has been defined by the [place] ofMedicine and an Endocrine Society practice guideline as alevel of serum 25-OH vitamin D less than 20 ng/mL (1,2).The Endocrine Society went on to further define vitamin Dinsufficiency as a level between 21 and 29 ng/mL (2).1. IOM ([place] of Medicine). 2010. Dietary reference intakes for calcium and D. [place]: The National Academies Press.2. Brice MF, Olu FRANCIS, Jennifer JIMENEZ, et al. Evaluation, treatment, and prevention of vitamin D deficiency: an Endocrine Society clinical practice guideline. JCEM. 2010; 96(7):1911-30. PATIENT WAS FASTINGP ERFORMED BY: [facility] Gdudas4760 [address] RoadDublin [place] [id number] CBC, PLATELETS & MANUAL DIFF ([id number])Ordered By: Bag Press Operator on 10-26-2021 Basophils (Bld) [#/Vol] 0.0 10*3/uL Normal 0.0-0.2 [facility]; [facility] Work Phone: Comment on above: PATIENT WAS FASTINGP ERFORMED BY: [facility] Bnyphz8768 [address] RoadDublin [place] [id number] Basophils/100 WBC (Bld) 1 % Normal [facility]; [facility] Work Phone: Comment on above: PATIENT WAS FASTINGP ERFORMED BY: [facility] Uupikw6764 [address] RoadDublin [place] [id number] Eosinophils (Bld) [#/Vol] 0.0 10*3/uL Normal 0.0-0.4 [facility]; [facility] Work Phone: Comment on above: PATIENT WAS FASTINGP ERFORMED BY: [facility] Ehsoky9[address] RoadDublin [place] [id number] Eosinophils/100 WBC (Bld) 1 % Normal [facility]; [facility] Work Phone: Comment on above: PATIENT WAS FASTINGP ERFORMED BY: [facility] Ckmela[address] Incentive TargetingDublin [place] [id number] Erythrocyte distribution width (RBC) [Ratio] 12.6 % Normal 11.7-15.4 [facility]; [facility] Work Phone: Comment on above: PATIENT WAS FASTINGP ERFORMED BY: [facility] Stdsff5936 [address] RoadDublin [place] [id number] Hematocrit (Bld) [Volume fraction] 40.1 % Normal 34.0-46.6 [facility]; [facility] Work Phone: Comment on above: PATIENT WAS FASTINGP ERFORMED BY: AMIRA Claudinexochitl Gsrxwp4776 AllenWestern [facility] [id number] Hemoglobin (Bld) [Mass/Vol] 13.5 g/dL Normal 11.1-15.9 [facility]; [facility] Work Phone: Comment on above: PATIENT WAS FASTINGP ERFORMED BY: AMIRA Marielin6370 [facility] [id number] Immature granulocytes (Bld) [#/Vol] 0.0 10*3/uL Normal 0.0-0.1 [facility]; [facility] Work Phone: Comment on above: PATIENT WAS FASTINGP ERFORMED BY: AMIRA Marielin6370 [facility] [id number] Immature granulocytes/100 WBC (Bld) 0 % Normal [facility]; [facility] Work Phone: Comment on above: PATIENT WAS FASTINGP ERFORMED BY: AMIRA Marielin6370 [facility] [id number] Lymphocytes (Bld) [#/Vol] 2.1 10*3/uL Normal 0.7-3.1 [facility]; [facility] Work Phone: Comment on above: PATIENT WAS FASTINGP ERFORMED BY: AMIRA Claudinexochitl MarieEvhpzm6959 [facility] [id number] Lymphocytes/100 WBC (Bld) 29 % Normal [facility]; [facility] Work Phone: Comment on above: PATIENT WAS FASTINGP ERFORMED BY: AMIRA Marielin6370 [facility] [id number] MCH (RBC) [Entitic mass] 30.3 pg Normal 26.6-33.0 [facility]; [facility] Work Phone: Comment on above: PATIENT WAS FASTINGP ERFORMED BY: AMIRA Marielin6370 AllenMinnie Hamilton Health Centerin [place] [id number] MCHC (RBC) [Mass/Vol] 33.7 g/dL Normal 31.5-35.7 [facility] prehensive Internal Medicine; Comprehensive Internal Medicine Work Phone: Comment on above: PATIENT WAS FASTINGP ERFORMED BY: AMIRA Zoltan Peter6370 [facility] [id number] MCV (RBC) [Entitic vol] 90 fL Normal 79-97 [facility]; [facility] Work Phone: Comment on above: PATIENT WAS FASTINGP ERFORMED BY: AMIRA Felisa Iicpyr7202 [facility]in [place] [id number] Monocytes (Bld) [#/Vol] 0.4 10*3/uL Normal 0.1-0.9 [facility]; [facility] Work Phone: Comment on above: PATIENT WAS FASTINGP ERFORMED BY: AMIRA Felisatameka MarieVqdsbp6411 [facility] [id number] Monocytes/100 WBC (Bld) 5 % Normal [facility]; [facility] Work Phone: Comment on above: PATIENT WAS FASTINGP ERFORMED BY: AMIRA Felisatameka Valdnr1553 [facility] [id number] Neutrophils (Bld) [#/Vol] 4.6 10*3/uL Normal 1.4-7.0 [facility]; [facility] Work Phone: Comment on above: PATIENT WAS FASTINGP ERFORMED BY: AMIRA Felisa Wjdaty[address] [facility]in [place] [id number] Neutrophils/100 WBC (Bld) 64 % Normal [facility]; [facility] Work Phone: Comment on above: PATIENT WAS FASTINGP ERFORMED BY: AMIRA Felisatameka Rseryp9086 [address] Roadblin [place] [id number] Platelets (Bld) [#/Vol] 275 10*3/uL Normal 150-450 [facility]; [facility] Work Phone: Comment on above: PATIENT WAS FASTINGP ERFORMED BY: AMIRA [facility] Lcdwyf6886 [address] RoadDublin [place] [id number] RBC (Bld) [#/Vol] 4.46 10*6/uL Normal 3.77-5.28 [facility] Internal Medicine; [facility] Work Phone: Comment on above: PATIENT WAS FASTINGP ERFORMED BY: CB [facility] Nrnumg6004 [address] RoadDublin [place] [id number] WBC (Bld) [#/Vol] 7.2 10*3/uL Normal 3.4-10.8 [facility] Internal Medicine; [facility] Work Phone: Comment on above: PATIENT WAS FASTINGP ERFORMED BY: AMIRA [facility] Uhsnhh9504 [address] RoadDublin [place] [id number] LIPID PANEL (35558)Ordered B y: Bag Press Operator on 10-26-2021 Cholesterol [Mass/Vol] 225 mg/dL Abnormal 100-199 [facility]; [facility] Work Phone: Comment on above: PATIENT WAS FASTINGP ERFORMED BY: AMIRA [facility] Ufwbfo9580 [address] RoadDublin [place] [id number] Cholesterol in HDL [Mass/Vol] 55 mg/dL Normal [facility]; [facility] Work Phone: Comment on above: PATIENT WAS FASTINGP ERFORMED BY: AMIRA [facility] Ckpqcg9528 [address] RoadDublin [place] [id number] Triglyceride [Mass/Vol] 129 mg/dL Normal 0-149 [facility]; [facility] Work Phone: Comment on above: PATIENT WAS FASTINGP ERFORMED BY: AMIRA [facility] Lgdriv4106 [address] RoadDublin [place] [id number] LIPID PANEL (34635) 23 mg/dL Normal 5-40 [facility]; [facility] Work Phone: Comment on above: PATIENT WAS FASTINGP ERFORMED BY: CB [facility] Dsohhd3150 [address] RoadDublin [place] [id number] LIPID PANEL (85370) 147 mg/dL Abnormal 0-99 [facility]; [facility] Work Phone: Comment on above: PATIENT WAS FASTINGP ERFORMED BY: CB [facility] Irfmmw1178 [address] RoadDublin [place] [id number] LIPID PANEL (33963) 2.7 {ratio} Normal 0.0-3.2 [facility] Internal Medicine; [facility] Work Phone: Comment on above: LDL/HDL Ratio Men Wo men 1/2 Avg.Risk 1.0 1.5 Avg.Risk 3.6 3.2 2X Avg.Risk 6.2 5.0 3X Avg.Risk 8.0 6.1 PATIENT WAS FASTINGP ERFORMED BY: CB [facility] Bresuu3557 [address] RoadDublin [place] [id number] METABOLIC PANEL, COMPREHENSI VE (27116)Ordered By: Bag Press Operator on 10-26-2021 Albumin [Mass/Vol] 4.1 g/dL Normal 3.8-4.9 [facility] Internal Medicine; [facility] Work Phone: Comment on above: PATIENT WAS FASTINGP ERFORMED BY: CB [facility] Wglykp9946 [address] RoadDublin [place] [id number] Albumin/Globulin [Mass ratio] 2.0 {ratio} Normal 1.2-2.2 [facility]; [facility] Work Phone: Comment on above: PATIENT WAS FASTINGP ERFORMED BY: CB [facility] Jtzpjz0680 [address] RoadDublin [place] [id number] ALP [Catalytic activity/Vol] 96 U/L Normal 44-121 [facility]; [facility] Work Phone: Comment on above: PATIENT WAS FASTINGP ERFORMED BY: CB [facility] Vskhdz4302 [address] RoadDublin [place] [id number] ALT [Catalytic activity/Vol] 13 U/L Normal 0-32 [facility]; [facility] Work Phone: Comment on above: PATIENT WAS FASTINGP ERFORMED BY: CB [facility] Zmpocw9170 [address] RoadDublin [place] [id number] AST [Catalytic activity/Vol] 15 U/L Normal 0-40 [facility]; [facility] Work Phone: Comment on above: PATIENT WAS FASTINGP ERFORMED BY: [facility] Hpqppm6722 [address] RoadDublin [place] [id number] Bilirubin [Mass/Vol] 0.4 mg/dL Normal 0.0-1.2 Comp rehensive Internal Medicine; [facility] Work Phone: Comment on above: PATIENT WAS FASTINGP ERFORMED BY: CB [facility] Pxpqlz0176 [address] RoadDublin [place] [id number] Calcium [Mass/Vol] 8.8 mg/dL Normal 8.7-10.2 [facility]; [facility] Work Phone: Comment on above: PATIENT WAS FASTINGP ERFORMED BY: CB [facility] Bghweu1216 [address] RoadDublin [place] [id number] Chloride [Moles/Vol] 100 mmol/L Normal 96-106 Comp rehensive Internal Medicine; [facility] Work Phone: Comment on above: PATIENT WAS FASTINGP ERFORMED BY: [facility] Ihfsvv2288 [address] RoadDublin [place] [id number] CO2 [Moles/Vol] 22 mmol/L Normal 20-29 Comprehen [facility] Internal [facility]; [facility] Work Phone: Comment on above: PATIENT WAS FASTINGP ERFORMED BY: CB [facility] Vxfzcb9702 [address] RoadDublin [place] [id number] Creatinine [Mass/Vol] 0.73 mg/dL Normal 0.57-1.00 [facility]; [facility] Work Phone: Comment on above: PATIENT WAS FASTINGP ERFORMED BY: [facility] Ejooie1407 [address] RoadDublin [place] [id number] GFR/1.73 sq M.predicted among non-blacks MDRD (S/P/Bld) [Vol rate/Area] 100 mL/min/{1.73_m2} Normal Comprehensi ve Internal Medicine; [facility] Work Phone: Comment on above: PATIENT WAS FASTINGP ERFORMED BY: [facility] Bqzvpr0321 [address] RoadDublin [place] [id number] Globulin (S) [Mass/Vol] 2.1 g/dL Normal 1.5-4.5 [facility] Internal Medicine; [facility] Work Phone: Comment on above: PATIENT WAS FASTINGP ERFORMED BY: AMIRA [facility] Cgbott2565 [facility] [id number] Glucose [Mass/Vol] 74 mg/dL Normal 65-99 [facility] Internal Medicine; [facility] Work Phone: Comment on above: PATIENT WAS FASTINGP ERFORMED BY: AMIRA [facility] Pevpop8804 [facility] [id number] Potassium [Moles/Vol] 4.2 mmol/L Normal 3.5-5.2 [facility]erens[facility]; [facility] Work Phone: Comment on above: PATIENT WAS FASTINGP ERFORMED BY: AMIRA [facility] Bjxanx8119 [facility] [id number] Protein [Mass/Vol] 6.2 g/dL Normal 6.0-8.5 [facility] Internal Medicine; [facility] Work Phone: Comment on above: PATIENT WAS FASTINGP ERFORMED BY: AMIRA [facility] Aerthq4102 [facility] [id number] Sodium [Moles/Vol] 138 mmol/L Normal 134-144 [facility] Internal Medicine; [facility] Work Phone: Comment on above: PATIENT WAS FASTINGP ERFORMED BY: [facility] Dwnqbs4534 [facility] [id number] Urea nitrogen [Mass/Vol] 8 mg/dL Normal 6-24 [facility]; [facility] Work Phone: Comment on above: PATIENT WAS FASTINGP ERFORMED BY: AMIRA [facility] Xmgefk5736 [facility] [id number] Urea nitrogen/Creatinine [Mass ratio] 11 mg/mg Normal 9-23 [facility]; [facility] Work Phone: Comment on above: PATIENT WAS FASTINGP ERFORMED BY: [employer]6370 [employer] [place] [id number] TSH (THYROID STIMULATING HOR TAYE) (61100)Ordered By: Bag Press Operator on 10-26-2021 TSH Qn 3.230 {uIU/mL} Normal 0.450-4.50 0 [facility]; [facility] Work Phone: Comment on above: PATIENT WAS FASTINGP ERFORMED BY: [employer]6370 [facility] [id number] URINE GERONIMO CULTURE-IDENTIFICA TN (19325)Ordered By: Bag Press Operator on 09-01-2021 Bacteria identified Cx Nom (U) Final report Normal [facility]; [facility] Work Phone: Comment on above: PATIENT NOT FASTINGP ERFORMED BY: [employer]6370 [facility] [id number] Information: SRC: Bacteria identified Cx Nom (U) NG36 Normal [facility]; [facility] Work Phone: Comment on above: No growth in 36 - 48 hours. PATIENT NOT FASTINGP ERFORMED BY: [employer]70 [facility]Pe[facility] [id number] Information: SRC: Urinalysis, Office (67395)Or dered By: Zackary Felder on 09-01-2021 Bilirubin [...] Phone: URINE GERONIMO CULTURE (NIGEL COL COUNT) (07376)Ordered By: Bag Press Operator on 08-29-2021 Bacteria identified Cx Nom (U) Final report Normal [facility]; [facility] Work Phone: Comment on above: PATIENT NOT FASTINGP ERFORMED BY: [employer] [place] [id number] Information: SRC:UC Bacteria identified Cx Nom (U) MUG Normal [facility]; [facility] Work Phone: Comment on above: Mixed urogenital velvet ra25,000-50,000 colony forming units per mL PATIENT NOT FASTINGP ERFORMED BY: [employer] [place] [id number] Information: SRC:UC Urinalysis, Office (00044)Or dered By: Radha Rousseau on 08-29-2021 Bilirubin [...] Phone: URINE GERONIMO CULTURE (NIGEL COL COUNT) (43909)Ordered By: Bag Press Operator on 05-30-2021 Bacteria identified Cx Nom (U) Final report Abnormal [facility]; [facility] Work Phone: Comment on above: PATIENT NOT FASTINGP ERFORMED BY: AMIRA [employer] [place] [id number] Information: SRC:UC Bacteria identified Cx Nom (U) [...] per mL PATIENT NOT FASTINGP ERFORMED BY: [employer] [place] [id number] Information: SRC:UC Other Antibiotic [Susc] MIHEAD Normal [facility] [...] S PATIENT NOT FASTINGP ERFORMED BY: AMIRA [facility] Duulok[address] LearnVestCaroMont [facility] [id number] Information: SRC:SALLIE Urinalysis, Office (08851)Or dered By: Sandee Osborne on 05-29-2021 Bilirubin [...] Medicine; [facility] Work Phone: Cortisol ([id number])Ordered By: Bag Press Operator on 02-14-2021 Cortisol [Mass/Vol] 1.5 ug/dL Normal Compr ehensive Internal Medicine; [facility] Work Phone: Comment on above: Cortisol AM 6.2 - 19 .4 Cortisol PM 2.3 - 11.9 Give pt lab slip philipp ay; PATIENT NOT FASTINGPERFORMED BY: AMIRA [facility] Btvkno2053 [facility]Western [facility] [id number] HEPATIC FUNCTION PANEL (8007 6)Ordered By: Bag Press Operator on 02-14-2021 Albumin [Mass/Vol] 4.2 g/dL Normal 3.8-4.8 [facility] Internal Medicine; [facility] Work Phone: Comment on above: Give pt lab slip tod ay; PATIENT NOT FASTINGPERFORMED BY: CB [facility] Hypanp8579 [address] RoadDublin [place] [id number] ALP [Catalytic activity/Vol] 94 U/L Normal 44-121 [facility]; [facility] Work Phone: Comment on above: Please note refere nce interval change Give pt lab slip tod ay; PATIENT NOT FASTINGPERFORMED BY: CB [facility] Syiabw2418 [address] RoadDublin [place] [id number] ALT [Catalytic activity/Vol] 21 U/L Normal 0-32 [facility]; [facility] Work Phone: Comment on above: Give pt lab slip tod ay; PATIENT NOT FASTINGPERFORMED BY: CB [facility] Njgriy9136 [address] RoadDublin [place] [id number] AST [Catalytic activity/Vol] 17 U/L Normal 0-40 [facility]; [facility] Work Phone: Comment on above: Give pt lab slip tod ay; PATIENT NOT FASTINGPERFORMED BY: CB [facility] Tijing9512 [address] RoadDublin [place] [id number] Bilirubin [Mass/Vol] mg/dL Normal 0.0-1.2 [facility] Internal Medicine; [facility] Work Phone: Comment on above: Give pt lab slip tod ay; PATIENT NOT FASTINGPERFORMED BY: CB [facility] Cbioga8241 [address] RoadDublin [place] [id number] Bilirubin.direct [Mass/Vol] mg/dL Normal 0.00-0.40 [facility]; [facility] Work Phone: Comment on above: Give pt lab slip tod ay; PATIENT NOT FASTINGPERFORMED BY: CB [facility] Okphgx0568 [address] RoadDublin [place] [id number] Protein [Mass/Vol] 6.7 g/dL Normal 6.0-8.5 Compre hensive Internal Medicine; [facility] Work Phone: Comment on above: Give pt lab slip tod ay; PATIENT NOT FASTINGPERFORMED BY: CB [facility] Vtxayx4971 [address] LearnVestblin [place] [id number] VITAMIN B12 AND FOLATES (826 07)Ordered By: Bag Press 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 Give pt lab slip to be done before next dose; PATIENT NOT FASTINGPERFORMED BY: CB [facility] Stwduu[address] Incentive TargetingDublin [place] [id number] CALCIFEDIOL (95265)Ordered B y: Bag Press Operator on 12-26-2020 25-hydroxyvitamin D [Mass/Vol] 41.4 ng/mL Normal 30.0-100.0 [facility]; [facility] Work Phone: Comment on above: Vitamin D deficiency has been defined by the [place] ofMedicine and an Endocrine Society practice guideline as alevel of serum 25-OH vitamin D less than 20 ng/mL (1,2).The Endocrine Society went on to further define vitamin Dinsufficiency as a level between 21 and 29 ng/mL (2).1. IOM ([place] of Medicine). 2010. Dietary reference intakes for calcium and D. [place]: The National Academies Press.2. Brice DICKERSON, Olu FRANCIS, Jennifer JIMENEZ, et al. Evaluation, treatment, and prevention of vitamin D deficiency: an Endocrine Society clinical practice guideline. JCEM. 2010; 96(7):1911-30. PATIENT NOT FASTINGP ERFORMED BY: CB [facility] Pgijzw3224 [address] RoadDublin [place] [id number] CBC & PLATELETS (AUTO) (8502 7)Ordered By: Bag Press Operator on 12-26-2020 Erythrocyte distribution width (RBC) [Ratio] 14.3 % Normal 11.7-15.4 [facility]; [facility] Work Phone: Comment on above: PATIENT NOT FASTINGP ERFORMED BY: CB [facility] Abtcqh4347 Allen RoadCatawba Valley Medical Centerin [place] [id number] Hematocrit (Bld) [Volume fraction] 43.1 % Normal 34.0-46.6 [facility]; [facility] Work Phone: Comment on above: PATIENT NOT FASTINGP ERFORMED BY: CB [facility] Tpaafr1763 Allen RoadCatawba Valley Medical Centerin [place] [id number] Hemoglobin (Bld) [Mass/Vol] 14.4 g/dL Normal 11.1-15.9 [facility]; [facility] Work Phone: Comment on above: PATIENT NOT FASTINGP ERFORMED BY: CB [facility] Xeeyuk4079 Allen RoadCatawba Valley Medical Centerin [place] [id number] MCH (RBC) [Entitic mass] 30.2 pg Normal 26.6-33.0 [facility] Internal Medicine; [facility] Work Phone: Comment on above: PATIENT NOT FASTINGP ERFORMED BY: CB [facility] Sfsphh0962 [address] RoadCatawba Valley Medical Centerin [place] [id number] MCHC (RBC) [Mass/Vol] 33.4 g/dL Normal 31.5-35.7 [facility] Internal [facility]; [facility] Work Phone: Comment on above: PATIENT NOT FASTINGP ERFORMED BY: CB [facility] Fjkasn1074 [address] RoadDublin [place] [id number] MCV (RBC) [Entitic vol] 90 fL Normal 79-97 [facility]; [facility] Work Phone: Comment on above: PATIENT NOT FASTINGP ERFORMED BY: CB [facility] Lvcytx9117 [address] RoadDublin [place] [id number] Platelets (Bld) [#/Vol] 334 10*3/uL Normal 150-450 [facility]; [facility] Work Phone: Comment on above: PATIENT NOT FASTINGP ERFORMED BY: CB [facility] Eivcjh0112 [address] RoadDublin [place] [id number] RBC (Bld) [#/Vol] 4.77 10*6/uL Normal 3.77-5.28 [facility] Internal Medicine; [facility] Work Phone: Comment on above: PATIENT NOT FASTINGP ERFORMED BY: CB [facility] Vvbqhv9224 [address] RoadDublin [place] [id number] WBC (Bld) [#/Vol] 7.2 10*3/uL Normal 3.4-10.8 [facility] Internal Medicine; [facility] Work Phone: Comment on above: PATIENT NOT FASTINGP ERFORMED BY: CB [facility] Dczhtf3408 [address] RoadDublin [place] [id number] Metabolic Panel, Comprehensi ve (93209)Ordered By: Bag Press Operator on 12-26-2020 Albumin [Mass/Vol] 4.4 g/dL Normal 3.8-4.8 [facility] Internal Medicine; [facility] Work Phone: Comment on above: PATIENT NOT FASTINGP ERFORMED BY: CB [facility] Hdlqsg8235 [address] RoadDublin [place] [id number] Albumin/Globulin [Mass ratio] 1.8 {ratio} Normal 1.2-2.2 [facility]; [facility] Work Phone: Comment on above: PATIENT NOT FASTINGP ERFORMED BY: CB [facility] Bcpngk4860 [address] RoadDublin [place] [id number] ALP [Catalytic activity/Vol] 100 U/L Normal 44-121 [facility]; [facility] Work Phone: Comment on above: Please note refere nce interval change PATIENT NOT FASTINGP ERFORMED BY: CB [facility] Dtcris5218 [address] RoadDublin [place] [id number] ALT [Catalytic activity/Vol] 33 U/L Abnormal 0-32 [facility]; [facility] Work Phone: Comment on above: PATIENT NOT FASTINGP ERFORMED BY: CB [facility] Rcdxwd7253 [address] RoadDublin [place] [id number] AST [Catalytic activity/Vol] 28 U/L Normal 0-40 [facility]; [facility] Work Phone: Comment on above: PATIENT NOT FASTINGP ERFORMED BY: CB [facility] Gmxbra1371 [address] RoadDublin [place] [id number] Bilirubin [Mass/Vol] mg/dL Normal 0.0-1.2 Comp rehensive Internal Medicine; [facility] Work Phone: Comment on above: PATIENT NOT FASTINGP ERFORMED BY: CB [facility] Ndjyab4592 [address] RoadDublin [place] [id number] Calcium [Mass/Vol] 8.9 mg/dL Normal 8.7-10.2 [facility] Internal [facility]; [facility] Work Phone: Comment on above: PATIENT NOT FASTINGP ERFORMED BY: CB [facility] Bxnmot7333 [address] RoadDublin [place] [id number] Chloride [Moles/Vol] 104 mmol/L Normal 96-106 Comp rehensive Internal Medicine; [facility] Work Phone: Comment on above: PATIENT NOT FASTINGP ERFORMED BY: CB [facility] Yrrhcy2277 [address] RoadDublin [place] [id number] CO2 [Moles/Vol] 21 mmol/L Normal 20-29 Comprehen [facility] Internal Medicine; [facility] Work Phone: Comment on above: PATIENT NOT FASTINGP ERFORMED BY: CB [facility] Xcutnp3961 [address] RoadDublin [place] [id number] Creatinine [Mass/Vol] 0.68 mg/dL Normal 0.57-1.00 Com prehensive Internal Medicine; [facility] Work Phone: Comment on above: PATIENT NOT FASTINGP ERFORMED BY: CB [facility] Jrldwl3169 [address] RoadDublin [place] [id number] GFR/1.73 sq M.predicted among blacks CKD-EPI (S/P/Bld) [Vol rate/Area] 118 mL/min/1.73 Normal [facility]; [facility] Work Phone: Comment on above: In accordance with recommendations from the NKF-ASN Task force, [facility] is in the process of updating its eGFR calculation to the 2020 CKD-EPI creatinine equation that estimates kidney function without a race variable. PATIENT NOT FASTINGP ERFORMED BY: AMIRA Marielin6370 [facility] [id number] GFR/1.73 sq M.predicted among non-blacks CKD-EPI (S/P/Bld) [Vol rate/Area] 102 mL/min/1.73 Normal [facility]; [facility] Work Phone: Comment on above: PATIENT NOT FASTINGP ERFORMED BY: AMIRA Peter6370 [facility] [id number] Globulin (S) [Mass/Vol] 2.4 g/dL Normal 1.5-4.5 [facility] Internal Medicine; [facility] Work Phone: Comment on above: PATIENT NOT FASTINGP ERFORMED BY: AMIRA Peter6370 [facility] [id number] Glucose [Mass/Vol] 80 mg/dL Normal 65-99 [facility] Internal Medicine; [facility] Work Phone: Comment on above: PATIENT NOT FASTINGP ERFORMED BY: AMIRA Peter6370 [facility] [id number] Potassium [Moles/Vol] 4.5 mmol/L Normal 3.5-5.2 [facility] prehensive Internal Medicine; [facility] Work Phone: Comment on above: PATIENT NOT FASTINGP ERFORMED BY: AMIRA Marielin6370 [facility] [id number] Protein [Mass/Vol] 6.8 g/dL Normal 6.0-8.5 [facility] Internal Medicine; [facility] Work Phone: Comment on above: PATIENT NOT FASTINGP ERFORMED BY: AMIRA Marielin6370 [address] RoadDublin [place] [id number] Sodium [Moles/Vol] 141 mmol/L Normal 134-144 [facility] Internal Medicine; [facility] Work Phone: Comment on above: PATIENT NOT FASTINGP ERFORMED BY: AMIRA Marielin6370 [address] RoadDublin [place] [id number] Urea nitrogen [Mass/Vol] 10 mg/dL Normal 6-24 [facility]; [facility] Work Phone: Comment on above: PATIENT NOT FASTINGP ERFORMED BY: AMIRA [facility] Ogjsxh3002 [address] RoadDublin [place] [id number] Urea nitrogen/Creatinine [Mass ratio] 15 mg/mg Normal 9-23 [facility]; [facility] Work Phone: Comment on above: PATIENT NOT FASTINGP ERFORMED BY: AMIRA [facility] Cnczbv9[address] Roadbl[address] [place] [id number] PARATHORMONE (21014)Ordered By: Bag Press Operator on 12-26-2020 Parathyrin.intact [Mass/Vol] 39 pg/mL Normal 15-65 [facility]; [facility] Work Phone: Comment on above: PATIENT NOT FASTINGP ERFORMED BY: AMIRA [facility] Jkkfje6564 [address] Roadblin [place] [id number] T3, FREE (TRIDOTHYRONINE) (8 6961)Ordered By: Bag Press Operator on 12-26-2020 Free T3 [Mass/Vol] 2.2 pg/mL Normal 2.0-4.4 [facility] Internal Medicine; [facility] Work Phone: Comment on above: PATIENT NOT FASTINGP ERFORMED BY: [facility] Ctuyjs1696 [address] RoadDublin [place] [id number] T4, FREE (THYROXINE) (21697) Ordered By: Bag Press Operator on 12-26-2020 Free T4 [Mass/Vol] 0.87 ng/dL Normal 0.82-1.77 [facility] Internal Medicine; [facility] Work Phone: Comment on above: PATIENT NOT FASTINGP ERFORMED BY: [facility] Seugmx8604 [facility] [id number] TSH (THYROID STIMULATING HOR TAYE) ([id number])Ordered By: Bag Press Operator on 12-26-2020 TSH Qn 2.960 {uIU/mL} Normal 0.450-4.50 0 [facility]; [facility] Work Phone: Comment on above: PATIENT NOT FASTINGP ERFORMED BY: [employer] Azrjua5489 [facility] [id number] VITAMIN B12 AND FOLATES (826 07)Ordered By: Bag Press Operator on 12-26-2020 Cobalamin (Vitamin B12) [Mass/Vol] pg/mL Abnormal 232-1245 [facility]; [facility] Work Phone: Comment on above: PATIENT NOT FASTINGP ERFORMED BY: [employer] [id number] Folate [Mass/Vol] 7.9 ng/mL Normal Compreh [facility]; [facility] Work Phone: Comment on above: A serum folate yehuda ntration of less than 3.1 ng/mL isconsidered to represent clinical deficiency. PATIENT NOT FASTINGP ERFORMED BY: [employer] [id number] UGI W KUBon 01-20-2019 UGI W KUB *FINAL Date of Service: 01/20/2019 08:43 Adm #: [id number] Reading Dr:LUCIE GLAE Signoff Dr: LUCIE GALE PROCEDURE: UGI W [...] Impression: No sign of obstruction or extravasation. [id number] This report has been produced using speech recognition. Original Interpreting Physician: LUCIE GALE M.D. Original Transcribed by/Date: PSCB Jan 20 2019 8:51A Original Electronically Signed by/Date: LUCIE GALE M.D. Jan 20 2019 8:51A Addendum Interpreting Physician: Addendum Transcribed by/Date: NO ADDENDUM Addendum Electronically Signed by/Date: [facility] PLATELETon 01-19-2019 Platelets (Bld) [#/Vol] Normal 150-450 [facility] Comment on above: Result Comment: 284 Performed at [address] [address] Performed By: #### P LT #### [address] [address] [facility] 01-19-2019 [facility] Patient Name: DIANA LEE MR#: [id number] Specimen #[id number] Source: Stomach remnant Gross Description Received in [...] hemorrhage. The cut surfaces are grossly unremarkable. Mortgage Processor sections including the largest of the polyps are submitted in 2 cassettes labeled A and B. Microscopic Description Slides examined; description omitted. Procedures/Addenda Final Diagnosis GASTRIC REMNANT, SLEEVE GASTRECTOMY: GASTRIC TISSUE WITH CHRONIC GASTRITIS. SEE COMMENT. COMMENT: A Giemsa special stain was performed, which is negative for H. pylori. Electronically Signed Out By VELMA FREITAS D.O. [facility] Comment on above: Performed By: #### 8 217 #### [address] [address] CBC with Diffon 01-06-2019 AB IMMATURE NEUT 0.02 K/UL Normal 0.0-0.1 [facility] Comment on above: Performed By: #### C BCD #### [facility] [address] [address] ABS BASO 0.05 K/UL Normal 0.00-0.22 [facility] Comment on above: Performed By: #### C BCD #### [facility] [address] [place] [address] [place] [address] ABS EOS 0.11 K/UL Normal 0-0.45 [facility] Comment on above: Performed By: #### C BCD #### [facility] [address] [address] [place] [address] ABS NEUTROPHILS 5.00 K/UL Normal 1.8-7.7 [facility] Comment on above: Performed By: #### C BCD #### [facility] [address] [place] [address] [place] [address] ABS.NEUT.CALCULATED Normal [facility] Comment on above: Result Comment: 5.00 Performed at [address] [place] [address] [place] [address] Performed By: #### C BCD #### [place] [address] [address] [place] [address] Basophils/100 WBC (Bld) 0.70 % Normal 0-1 [facility] Comment on above: Performed By: #### C BCD #### [address] [address] [place] [address] DIFF TYPE AUTO DIFF Normal [facility] Comment on above: Performed By: #### C BCD #### [address] [address] [place] [address] Eosinophils/100 WBC (Bld) 1.50 % Normal 0-3 [facility] Comment on above: Performed By: #### C BCD #### [facility] [address] [address] [place] [address] Erythrocyte distribution width (RBC) [Ratio] 13.4 % Normal 11.7-15.0 [facility] Comment on above: Performed By: #### C BCD #### [facility] [address] [address] [place] [address] Hematocrit (Bld) [Volume fraction] 44.3 % High 36-44 [facility] Comment on above: Performed By: #### C BCD #### [facility] [address] [address] [place] [address] Hemoglobin (Bld) [Mass/Vol] 14.2 g/dL Normal 12.0-15.0 [facility] Comment on above: Performed By: #### C BCD #### [facility] [address] [address] [place] [address] Lymphocytes (Bld) [#/Vol] 1.68 10*3/uL Normal 1.2-3.2 [facility] Comment on above: Performed By: #### C BCD #### [facility] [address] [address] [place] [address] Lymphocytes/100 WBC (Bld) 23.20 % Normal 20-40 [facility] Comment on above: Performed By: #### C BCD #### [facility] [address] [address] [place] [address] MCH (RBC) [Entitic mass] 29.6 pg Normal 26-34 [facility] Comment on above: Performed By: #### C BCD #### [address] [address] [place] [address] MCHC (RBC) [Mass/Vol] 32.1 % Normal 31-37 [facility] Comment on above: Performed By: #### C BCD #### [address] [address] [place] [address] MCV (RBC) [Entitic vol] 92.5 fL Normal 80-100 [facility] Comment on above: Performed By: #### C BCD #### [address] [address] [place] [address] MEAN PLT VOL 10.3 CU Normal 7.0-12.6 [facility] Comment on above: Performed By: #### C BCD #### [facility] [address] [address] [place] [address] Monocytes (Bld) [#/Vol] 0.39 10*3/uL Normal 0-0.8 [facility] Comment on above: Performed By: #### C BCD #### [facility] [address] [address] [place] [address] Monocytes/100 WBC (Bld) 5.40 % Normal 0-8 [facility] Comment on above: Performed By: #### C BCD #### [facility] [address] [place] [address] [place] [address] Neutrophils/100 WBC (Bld) 68.90 % Normal 50-70 [facility] Comment on above: Performed By: #### C BCD #### [facility] [address] [address] [place] [address] Neutrophils/100 WBC (Bld) 0.30 % Normal 0.0-1.0 [facility] Comment on above: Performed By: #### C BCD #### [address] [address] [place] [address] NRBC'S 0 /100 WBC Normal 0 [facility] Comment on above: Performed By: #### C BCD #### [address] [address] [place] [address] Platelets (Bld) [#/Vol] 323 10*3/uL Normal 150-450 [facility] Comment on above: Performed By: #### C BCD #### [address] [address] [place] [address] RBC (Bld) [#/Vol] 4.79 M/UL Normal 4.0-4.9 [facility] Comment on above: Performed By: #### C BCD #### [address] [address] [place] [address] RDW-SD 46.4 FL Normal 37.0-54.0 [facility] Comment on above: Performed By: #### C BCD #### [address] [address] [place] [address] WBC (Bld) [#/Vol] 7.3 10*3/uL Normal 4.5-11.0 [facility] Comment on above: Performed By: #### C BCD #### [address] [address] [place] [address] COMPREHENSIVE METABOLIC PANE Matthew 01-06-2019 Albumin [Mass/Vol] 4.1 g/dL Normal 3.5-5.0 [facility] Comment on above: Performed By: #### C PUBLIC AREA ATTENDANT #### [address] [address] [place] [address] Albumin/Globulin [Mass ratio] 1.4 {ratio} Low 1.5-3.0 [facility] Comment on above: Performed By: #### C PUBLIC AREA ATTENDANT #### Main Laboratory [facility] [address] [place] [address] ALP [Catalytic activity/Vol] 103 U/L Normal 35-125 [facility] Comment on above: Performed By: #### C PUBLIC AREA ATTENDANT #### [facility] [address] [place] [address] ALT [Catalytic activity/Vol] 28 U/L Normal 5-40 [facility] Comment on above: Performed By: #### C PUBLIC AREA ATTENDANT #### [facility] [address] [place] [address] Anion gap [Moles/Vol] 12 mmol/L Normal 0-19 [facility] Comment on above: Performed By: #### C PUBLIC AREA ATTENDANT #### [facility] [address] [place] [address] AST [Catalytic activity/Vol] 23 U/L Normal 5-40 [facility] Comment on above: Performed By: #### C PUBLIC AREA ATTENDANT #### [facility] [address] [place] [address] Bilirubin [Mass/Vol] 0.5 mg/dL Normal 0.1-1.2 [facility] Comment on above: Performed By: #### C PUBLIC AREA ATTENDANT #### [facility] [address] [place] [address] Calcium [Mass/Vol] 9.2 mg/dL Normal 8.5-10.4 [facility] Comment on above: Performed By: #### C PUBLIC AREA ATTENDANT #### [facility] [address] [place] [address] Chloride [Moles/Vol] 106 mmol/L Normal 97-107 [facility] Comment on above: Performed By: #### C PUBLIC AREA ATTENDANT #### [facility] [address] [place] [address] CO2 [Moles/Vol] 23 mmol/L Low 24-31 [facility] Comment on above: Performed By: #### C PUBLIC AREA ATTENDANT #### [facility] [address] [place] [address] Creatinine [Mass/Vol] 0.8 mg/dL Normal 0.4-1.6 [facility] Comment on above: Performed By: #### C PUBLIC AREA ATTENDANT #### [facility] [address] [address] GFR/1.73 sq M.predicted MDRD (S/P/Bld) [Vol rate/Area] Normal [facility] Comment on above: Result Comment: 81 GFR ml/min/1.73m2 Stage ----- 90 1 60-89 2 30-59 3 15-29 4 <15 5 For -Americans, multiply EGFR result by 1.210 Calculation not validated for patients under 18 years of age. Performed at [address] [place] [address] Performed By: #### C PUBLIC AREA ATTENDANT #### [address] [address] Globulin (S) [Mass/Vol] 2.9 g/dL Normal 1.9-3.7 [facility] Comment on above: Performed By: #### C PUBLIC AREA ATTENDANT #### [address] [address] Glucose [Mass/Vol] 79 mg/dL Normal 65-99 [facility] Comment on above: Performed By: #### C PUBLIC AREA ATTENDANT #### [address] [address] Potassium [Moles/Vol] 4.6 mmol/L Normal 3.4-5.1 [facility] Comment on above: Performed By: #### C PUBLIC AREA ATTENDANT #### [address] [address] Protein [Mass/Vol] 7.0 g/dL Normal 5.9-7.9 [facility] Comment on above: Performed By: #### C PUBLIC AREA ATTENDANT #### [address] [address] Sodium [Moles/Vol] 141 mmol/L Normal 133-145 [facility] Comment on above: Performed By: #### C PUBLIC AREA ATTENDANT #### [address] [place] [address] Urea nitrogen [Mass/Vol] 11 mg/dL Normal 8-25 [facility] Comment on above: Performed By: #### C PUBLIC AREA ATTENDANT #### Main Laboratory [address] [place] [address] [place] [address] Urea nitrogen/Creatinine [Mass ratio] 13.8 RATIO Normal 8-21 [facility] Comment on above: Performed By: #### C PUBLIC AREA ATTENDANT #### Main Laboratory [address] [place] [address] HISTORY PHYSICALon 9 HISTORY PHYSICAL HNO ID: [id number] Author: Jan Hale) Blaine Service: ? Author Type: Physician Type: HANDP [...] means), based on clinical findings. and EGD (Esophagogastroduodenosco py) with or without biopsies, removal of polyps [...] MAC Additional Comments: None Jan Valladares MD [facility] OBSOLETEon 10-09-2018 OBSOLETE Procedure (ASCCON) ----- DIANA LEE ([id number]) 1970 F Date Time Provider Department 10/09/18 10:45 AM JAN VALLADARES) RADHA During your visit today, we recorded the [...] means), based on clinical findings. and EGD (Esophagogastroduodenosco py) with or without biopsies, removal of polyps [...] 09, 2018 TIME: 12:43 PM PAGER/CONTACT #: [phone] Referring Provider: DIMITRIOS MCPHERSON [[id number]] Allergies As of Date: 10/09/2018 (No Known Allergies) Date Reviewed: 10/09/2018 Reviewed by: Jan Hale) Vladic - Fully Assessed Visit Diagnoses:Functional diarrhea [K59.1] Chronic idiopathic constipation [K59.04] Abdominal distension (gaseous) [R14.0] Generalized abdominal pain [R10.84] Order(s):COLONOSCOPY - DIAGNOSTIC [[id number]] Order #: [id number] EGD [7898351] Order #: [id number] SURGICAL PATHOLOGY [[id number]] Order #: [id number] Prescriptions as of 10/09/2018 Sig: ATORVASTATIN 40 MG TABLET Take 40 mg by mouth once vaibhav* BUTALBITAL 50 MG-ACETAMINOPHE* Take by mouth. BUTALBITAL-ACETAMINOPHEN- CAFF* Take 1 tablet by mouth as nee* [...] gm bottle, (2) 32* QUERCETIN DIHYDRATE (BULK) NV* 1 tablet once daily. PROGESTERONE MICRONIZED 200 M* Take 200 mg by mouth once jp* ESCITALOPRAM 10 MG TABLET Take 10 mg by mouth once vaibhva* OMEGA 3 FISH OIL ORAL Take by mouth. Problem List As Of Date 10/09/2018 Noted Resolved Chronic abdominal pain [R10.9, G89.29] INVALID FOR* More... Chronic fatigue syndrome [R53.82] INVALID FOR* Subclinical hypothyroidism [E03.9] INVALID FOR* Fibromyalgia [M79.7] INVALID FOR* Nonintractable migraine, unspecified migraine t*INVALID FOR* Other irritable bowel syndrome [K58.8] INVALID FOR* Rosacea [L71.9] INVALID FOR* Visit Notes: >> Veda Wong LPN [facility] Oct 09, 2018 10:07 AM Status: Signed [...] Department: AMBULATORY SURGERY >> Veda Wong LPN [facility] Oct 09, 2018 11:35 AM Status: Signed [...] Status:Closed by VEDA WONG LPN on 10/09/18 [facility] PROGRESSon 10-09-2018 PROGRESS HNO ID: [id number] Author: Jacqueline March Service: ? Author Type: Nurse Vice President Industrial Relations Type: Progress Notes Filed: 10/09/2018 12:44 PM Note Text: POST ANESTHESIA EVALUATION NOTE SERVICE DATE: 10/09/2018 SERVICE TIME: 1143 : 1970 Vitals: There were no vitals filed for this visit. 10/09/18 1133 BP: 99/59 10/09/18 1133 Pulse: 76 10/09/18 1133 Resp: 18 10/09/18 113 SpO2: 95% Validated Vital Signs: Yes POST [...] 09, 2018 TIME: 12:43 PM PAGER/CONTACT #: [phone] [facility] SURGICAL PATHOLOGYon 019 SURGICAL PATHOLOGY ADDENDUM PRESENT Specimen originated from [facility] Specimen #: [id number] Submitting Physician: LESLI VALLADARES MD FINAL DIAGNOSIS [...] flexure polyp, biopsy (D) - Tubular adenoma. /ka 10/10/2018 COMMENT 2. Given the presence of [...] that was performed on the gastric biopsy ([id number], block B1) due to the presence of mild chronic inactive gastritis. The Helicobacter pylori immunohistochemical stain is negative for Helicobacter pylori organisms. The final diagnosis remains unchanged. Laboratory Developed Test (LDT) Disclaimer: Positive and negative controls stain appropriately. Performance characteristics of immunohistochemical, immunofluorescent and chromogenic in-situ hybridization tests have been determined by [facility]'s [facility] Pathology and Laboratory Medicine [place] [facility]) in a manner consistent with CLIA requirements. One or more of these tests have not been cleared or approved by the FDA. [facility] is regulated under CLIA as [...] in one cassette. Gross examination performed at [facility], [address] [place] [address] 10/09/2018 10:24:47 PM Date of Report: 10/10/2018 Date of Procedure: 10/09/2018 Date of Receipt: 10/09/2018 Submitted by: LESLI VALLADARES MD Location: [place] Diagnostic interpretation performed at [facility], [address] [place] [address]. [place] Number: [id number] [facility] CNCOon 09-23-2018 CNCO Letter Text [facility] CNOVon 09-23-2018 CNOV Office Visit (GSTCON ) ----- DIANA LEE ([id number]) 1970 F Date Time Provider Department 09/23/18 8:30 AM JAN VALLADARES) GSTPAULETTE During your visit today, we recorded the following information about you: Pulse Respiration Blood pressure Weight 83/minute 16/minute 141/94 110.2 kg Height 1.626 m Jan Valladares MD 09/23/2018 9:14 AM Signed This note was created using Zoe Majesteter. Subjective Diana Lee is a 48 year [...] which improves her symptoms. History of 2011 esophagogastroduodenoscop y and colonoscopy in [place], [place]. Dx diverticulosis and pud. CT abd/pelvis 2009 IMPRESSION: 1. ? Large amount of stool within colon. ?Colonic diverticuli without evidence of diverticulitis. 3. ?Tiny umbilical hernia containing fat. BOWEL MOVEMENT daily. She states she experiences all the types of Weems Stool Chart stools. No blood in stools. [...] allergies however celiac disease should be considered. Esophagogastroduodenoscop y arranged. Plan for duodenal biopsies. Colonoscopy arranged. Discussed with patient/patient sales representative groceries the indications, alternatives, benefits and risks of procedure. Some of the possible risks include bleeding, infection, drug reaction, perforation, missed lesions, cardiopulmonary arrest or even , were also reviewed with patient/patient sales representative groceries. SIBO breath testing. Patient notes improvement of [...] and rosas findings as documented by the Marine Biologist and edited as appropriate. Jan Valladares MD [...] all of your current medications, including any Kmxw-uvf-Jwyfcpo medications with you. DIABETIC PATIENTS Use G2 [...] not use suppositories. 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] Other Visit Diagnoses:Chronic idiopathic constipation [K59.04] Abdominal distension (gaseous) [R14.0] Generalized abdominal pain [R10.84] Rash [R21] Order(s):INSERT IV ([place], [place]) [[id number]] Order #: [id number]: 1 FUTURE Miralax / Gatorade PrepMiralax 238 gm bottle, (2) 32 oz bottles of Gatorade, AND 4 Dulcolax 5 mg tabs- as directed per instructionsDisp: Rfl: INSERT IV ([place], [place]) [[id number]] Order #: [id number]: 1 COLONOSCOPY - DIAGNOSTIC [2867717] Order #: [id number] FUTURE EGD [3738052] Order #: [id number] FUTURE BREATH TEST GLUCOSE [3516523] Order #: [id number] FUTURE Prescriptions as of 09/23/2018 Sig: ATORVASTATIN 40 MG TABLET Take 40 mg by mouth once vaibhav* BUTALBITAL-ACETAMINOPHEN- CAFF* Take 1 tablet by mouth as nee* [...] MG-ACETAMINOPHE* Take by mouth. QUERCETIN DIHYDRATE (BULK) NV* 1 tablet once daily. PROGESTERONE MICRONIZED 200 [...] all of your current medications, including any Yjla-jtq-Kjjxasf medications with you. DIABETIC PATIENTS Use G2 [...] Status:Closed by JAN VALLADARES MD on 09/23/18 [facility] ([id number]) 1970 F Date Time Provider Department 09/23/18 JAN VALLADARES) GSTPAULETTE During your visit today, we recorded the following information about you: Suzie Goss Adm Asst 09/23/2018 9:[address] Valladares order Breath testing for patient. Local hospital systems for patient are [facility] and [facility]. Patient aware I will be researching where to send the req to, and call patient with scheduling phone number. Suzie Goss Adm Asst Suzie Goss Adm Asst 09/23/2018 10:08 AM Signed Spoke with Nanette at [facility]. She stated they do allow the Breath Tests to be done at their facility. Breath Test requisition has been fwd over to [facility]. Faxed to [phone] Patient notified. Suzie Goss Adm Asst Allergies As of Date: 09/23/2018 (No Known Allergies) Date Reviewed: 09/23/2018 Reviewed by: Jan Hale) Vladic - Fully Assessed Reason for Visit: Local Breath Test Locations [Other] Prescriptions as of 09/23/2018 Sig: COMPOUNDED PRESCRIPTION Miralax 238 gm bottle, (2) 32* ATORVASTATIN 40 MG TABLET Take 40 mg by mouth once vaibhav* BUTALBITAL 50 MG-ACETAMINOPHE* Take by mouth. BUTALBITAL-ACETAMINOPHEN- CAFF* Take 1 tablet by mouth as nee* VITAMIN B-12 INJECTION 1 mL by INJECTION(UNSPECIFIED* QUERCETIN DIHYDRATE (BULK) NV* 1 tablet once daily. METOPROLOL SUCCINATE ER [...] Rosacea [L71.9] INVALID FOR* Encounter Status:Closed by YUE ADM ASSTSUZIE on 09/23/18 [facility] PROGRESSon 09-23-2018 PROGRESS HNO ID: [id number] Author: Jan Hale) Blaine Service: ? Author Type: Physician Type: Progress Notes Filed: 09/23/2018 9:14 AM Note Text: This note was created using Chimerixriter. Subjective Diana Lee is a 48 year [...] diet which improves her symptoms. History of 2010 esophagogastroduodenoscop y and colonoscopy in [place], [place]. Dx diverticulosis and pud. CT abd/pelvis 2009 IMPRESSION: 1. ? Large amount of stool within colon. ?Colonic diverticuli without evidence of diverticulitis. 3. ?Tiny umbilical hernia containing fat. BOWEL MOVEMENT daily. She states she experiences all the types of Weems Stool Chart stools. No blood in stools. [...] allergies however celiac disease should be considered. Esophagogastroduodenoscop y arranged. Plan for duodenal biopsies. Colonoscopy arranged. Discussed with patient/patient sales representative groceries the indications, alternatives, benefits and risks of procedure. Some of the possible risks include bleeding, infection, drug reaction, perforation, missed lesions, cardiopulmonary arrest or even , were also reviewed with patient/patient sales representative groceries. SIBO breath testing. Patient notes improvement of [...] and rosas findings as documented by the Marine Biologist and edited as appropriate. [facility] CNCOon 10-15-2017 CNCO Letter Text Diana Lee Lisa Cruz MD Allergy and Immunology [facility] [address] [facility]/ [address] [place] [address] October 15, 2017 Dimitrios Mcpherson NP [address] [place] [address] [place] [address] Re: Diana Lee Date of : 1970 [...] regarding her care. Sincerely, Lisa Cruz MD [facility] Final Surgical Pathology Rep [facility] 02-12-2017 Final Surgical Pathology Report . Pathology ReportsAccession: Collected Date/Time: Received Date/Time: Pathologist:[id number] 02/07/2017 09:06 EST 02/11/2017 09:06 MD LESLEE GAMEZ Final Surgical Pathology ReportDIAGNOSIS:SKIN, LEFT OCCIPITAL SCALP, EXCISION: - VERRUCA.COMMENT:[facility] - A# [id number] INFORMATION:DISORDER OF THE SKIN AND SUBCUTANEOUS TISSUE, UNSPECIFIEDSPECIMEN:A SKIN, OTHER - LEFT OCCIPITAL SCALPGROSS DESCRIPTION:_Received in formalin labeled with the patient's name is a 0.6 cm huang, diffusely granular circular skin excised to a greatest depth of 0.4 cm. No orientation is given. The specimen is inked and bisected. A S -1Dictated by EMILY MARES ([facility])MICROSCOPIC DESCRIPTION:Slides reviewed.Electronically Signed byPathology Report verified by [facility] HospitalElectronically signed by LESLEE NAPOLES MDSign out Date: 02/12/2017 17:43Performing Lab: [facility], [address] [place] [address] [place] [address] ([place]) Comment on above: Performed By: #### S PFR ####[facility] [place] [address] Anti-TPO Antibody ([id number])Ord ered By: Bag Press Operator on 05-17-2014 TPO Ab Qn 191 [IU]/mL Abnormal 0-34 [facility]; [facility] Work Phone: Comment on above: PATIENT NOT FASTINGP ERFORMED BY: [facility] [address] [place] [id number] CALCIFIDIOL ([id number]) VIT D 25 Ordered By: Bag Press Operator on 05-17-2014 25-hydroxyvitamin D [Mass/Vol] 42.8 ng/mL Normal 30.0-100.0 [facility]; [facility] Work Phone: Comment on above: Vitamin D deficiency has been defined by the [place] of[place]icine and an Endocrine Society practice guideline as alevel of serum 25-OH vitamin D less than 20 ng/mL (1,2).The Endocrine Society went on to further define vitamin Dinsufficiency as a level between 21 and 29 ng/mL (2).1. IOM ([place] of Medicine). 2010. Dietary reference intakes for calcium and D. [place]: The National Academies Press.2. Brice MF, Olu FRANCIS, Jennifer JIMENEZ, et al. Evaluation, treatment, and prevention of vitamin D deficiency: an Endocrine Society clinical practice guideline. JCEM. 2010; 96(7):1911-30. PATIENT NOT FASTINGP ERFORMED BY: [facility] Fhlzzw8354 [place] [id number] CBC with auto diff ([id number])Or dered By: Bag Press Operator on 05-17-2014 Basophils (Bld) [#/Vol] 0.0 10*3/uL Normal 0.0-0.2 [facility]; [facility] Work Phone: Comment on above: PATIENT NOT FASTINGP ERFORMED BY: [facility] Jbjxxk4[address] LearnVestCaroMont [facility] [id number] Information: [id number] Basophils/100 WBC (Bld) 0 % Normal [facility]; [facility] Work Phone: Comment on above: PATIENT NOT FASTINGP ERFORMED BY: [facility] Svlsie8175 [facility] [id number] Information: [id number] Eosinophils (Bld) [#/Vol] 0.0 10*3/uL Normal 0.0-0.4 [facility]; [facility] Work Phone: Comment on above: PATIENT NOT FASTINGP ERFORMED BY: AMIRA [facility] [id number] Information: [id number] Eosinophils/100 WBC (Bld) 0 % Normal [facility]; [facility] Work Phone: Comment on above: PATIENT NOT FASTINGP ERFORMED BY: AMIRA [address] [id number] Information: [id number] Erythrocyte distribution width (RBC) [Ratio] 13.7 % Normal 12.3-15.4 [facility]; [facility] Work Phone: Comment on above: PATIENT NOT FASTINGP ERFORMED BY: AMIRA Roberto Sngnse[address] [id number] Information: [id number] Hematocrit (Bld) [Volume fraction] 44.3 % Normal 34.0-46.6 [facility]; [facility] Work Phone: Comment on above: PATIENT NOT FASTINGP ERFORMED BY: AMIRA Marielin6370 [facility] [id number] Information: [id number],[id number] Hemoglobin (Bld) [Mass/Vol] 14.5 g/dL Normal 11.1-15.9 [facility]; [facility] Work Phone: Comment on above: PATIENT NOT FASTINGP ERFORMED BY: AMIRA [place]Daniel [place] [id number] [facility] [id number] Information: [id number],[id number] Immature granulocytes (Bld) [#/Vol] 0.0 10*3/uL Normal 0.0-0.1 [facility]; [facility] Work Phone: Comment on above: PATIENT NOT FASTINGP ERFORMED BY: AMIRA [address] [id number] Information: [id number] Immature granulocytes/100 WBC (Bld) 0 % Normal [facility]; [facility] Work Phone: Comment on above: PATIENT NOT FASTINGP ERFORMED BY: AMIRA Chau [facility] [id number] Information: [id number] Lymphocytes (Bld) [#/Vol] 1.7 10*3/uL Normal 0.7-3.1 [facility]; [facility] Work Phone: Comment on above: PATIENT NOT FASTINGP ERFORMED BY: AMIRA [facility]6[address] [facility] [id number] Information: [id number] Lymphocytes/100 WBC (Bld) 30 % Normal [facility]; [facility] Work Phone: Comment on above: PATIENT NOT FASTINGP ERFORMED BY: AMIRA Roberto Yvzfuj3039 [facility] [id number] Information: [id number] MCH (RBC) [Entitic mass] 28.6 pg Normal 26.6-33.0 [facility]; [facility] Work Phone: Comment on above: PATIENT NOT FASTINGP ERFORMED BY: AMIRA Marielin6370 [facility] [id number] Information: [id number] MCHC (RBC) [Mass/Vol] 32.7 g/dL Normal 31.5-35.7 [facility] prehensive Internal Medicine; [facility] Work Phone: Comment on above: PATIENT NOT FASTINGP ERFORMED BY: AMIRA [facility]6[address] [facility] [id number] Information: [id number] MCV (RBC) [Entitic vol] 87 fL Normal 79-97 [facility]; [facility] Work Phone: Comment on above: PATIENT NOT FASTINGP ERFORMED BY: AMIRA [place] [address] [facility] [id number] Information: [id number] Monocytes (Bld) [#/Vol] 0.4 10*3/uL Normal 0.1-0.9 [facility]; [facility] Work Phone: Comment on above: PATIENT NOT FASTINGP ERFORMED BY: AMIRA Peter[address] RoadFerchoblin [place] [id number] Information: [id number] Monocytes/100 WBC (Bld) 7 % Normal [facility]; [facility] Work Phone: Comment on above: PATIENT NOT FASTINGP ERFORMED BY: CB [facility] Jshfcv9212 [address] Roadblin [place] [id number] Information: [id number],[id number] Neutrophils (Bld) [#/Vol] 3.7 10*3/uL Normal 1.4-7.0 [facility]; [facility] Work Phone: Comment on above: PATIENT NOT FASTINGP ERFORMED BY: AMIRA Peter[address] RoadCatawba Valley Medical Centerin [place] [id number] Information: [id number],[id number] Neutrophils/100 WBC (Bld) 63 % Normal [facility]; [facility] Work Phone: Comment on above: PATIENT NOT FASTINGP ERFORMED BY: AMIRA Marielin[address] Roadblin [place] [id number] Information: [id number] Platelets (Bld) [#/Vol] 334 10*3/uL Normal 150-379 [facility]; [facility] Work Phone: Comment on above: PATIENT NOT FASTINGP ERFORMED BY: CB [facility] Oaklrt2461 [address] RoadCatawba Valley Medical Centerin [place] [id number] Information: [id number] RBC (Bld) [#/Vol] 5.07 10*6/uL Normal 3.77-5.28 [facility] Internal Medicine; [facility] Work Phone: Comment on above: PATIENT NOT FASTINGP ERFORMED BY: CB [facility] Mzdhqg6[address] RoadDublin [place] [id number] Information: [id number] WBC (Bld) [#/Vol] 5.8 10*3/uL Normal 3.4-10.8 [facility]; [facility] Work Phone: Comment on above: PATIENT NOT FASTINGP ERFORMED BY: CB [facility] Xaopta7[address] RoadDublin [place] [id number] Information: [id number] METABOLIC PANEL, COMPREHENSI VE (82676)Ordered By: Bag Press Operator on 05-17-2014 Albumin [Mass/Vol] 4.4 g/dL Normal 3.5-5.5 [facility] Medicine; [facility] Work Phone: Comment on above: PATIENT NOT FASTINGP ERFORMED BY: CB [facility] Lmwepb6318 [address] RoadDublin [place] [id number] Albumin/Globulin [Mass ratio] 1.8 {ratio} Normal 1.1-2.5 [facility]; [facility] Work Phone: Comment on above: PATIENT NOT FASTINGP ERFORMED BY: CB [facility] Odepvt9031 [address] RoadDublin [place] [id number] ALP [Catalytic activity/Vol] 86 U/L Normal 39-117 [facility]; [facility] Work Phone: Comment on above: PATIENT NOT FASTINGP ERFORMED BY: CB [facility] Jlddfg8005 [address] RoadDublin [place] [id number] ALT [Catalytic activity/Vol] 18 U/L Normal 0-32 [facility]; [facility] Work Phone: Comment on above: PATIENT NOT FASTINGP ERFORMED BY: CB [facility] Dezbdn6895 [address] RoadDublin [place] [id number] AST [Catalytic activity/Vol] 15 U/L Normal 0-40 [facility]; [facility] Work Phone: Comment on above: PATIENT NOT FASTINGP ERFORMED BY: CB [facility] Wzxnvr5466 [address] RoadDublin [place] [id number] Bilirubin [Mass/Vol] 0.4 mg/dL Normal 0.0-1.2 Comp rehensive Internal Medicine; [facility] Work Phone: Comment on above: PATIENT NOT FASTINGP ERFORMED BY: CB [facility] Paxosc27[address] RoadDublin [place] [id number] Calcium [Mass/Vol] 9.6 mg/dL Normal 8.7-10.2 [facility]; [facility] Work Phone: Comment on above: PATIENT NOT FASTINGP ERFORMED BY: CB [facility] Ngejza8587 [address] RoadDublin [place] [id number] Chloride [Moles/Vol] 97 mmol/L Normal 97-108 Comp rehensive Internal Medicine; [facility] Work Phone: Comment on above: PATIENT NOT FASTINGP ERFORMED BY: CB [facility] Tsepmq0555 [address] RoadDublin [place] [id number] CO2 [Moles/Vol] 24 mmol/L Normal 18-29 [facility]; [facility] Work Phone: Comment on above: PATIENT NOT FASTINGP ERFORMED BY: CB [facility] Urlhuu65[address] RoadDublin [place] [id number] Creatinine [Mass/Vol] 0.69 mg/dL Normal 0.57-1.00 [facility]erens[facility]; [facility] Work Phone: Comment on above: PATIENT NOT FASTINGP ERFORMED BY: CB [facility] Lnvtld4596 [address] RoadDublin [place] [id number] GFR/1.73 sq M.predicted among blacks CKD-EPI (S/P/Bld) [Vol rate/Area] 122 mL/min/1.73 Normal [facility]; [facility] Work Phone: Comment on above: PATIENT NOT FASTINGP ERFORMED BY: CB [facility] Joxbmg5[address] RoadDublin [place] [id number] GFR/1.73 sq M.predicted among non-blacks CKD-EPI (S/P/Bld) [Vol rate/Area] 106 mL/min/1.73 Normal [facility]; [facility] Work Phone: Comment on above: PATIENT NOT FASTINGP ERFORMED BY: AMIRA [facility] Lxulvh1391 [address] RoadDublin [place] [id number] Globulin (S) [Mass/Vol] 2.4 g/dL Normal 1.5-4.5 [facility]; [facility] Work Phone: Comment on above: PATIENT NOT FASTINGP ERFORMED BY: CB [facility] Bjpvlb8[address] RoadDublin [place] [id number] Glucose [Mass/Vol] 99 mg/dL Normal 65-99 [facility]; [facility] Work Phone: Comment on above: PATIENT NOT FASTINGP ERFORMED BY: CB [facility] Cfzghx9666 [address] RoadDublin [place] [id number] Potassium [Moles/Vol] 4.3 mmol/L Normal 3.5-5.2 [facility]eren[facility]; [facility] Work Phone: Comment on above: PATIENT NOT FASTINGP ERFORMED BY: CB [facility] Wdovzp6680 [address] RoadDublin [place] [id number] Protein [Mass/Vol] 6.8 g/dL Normal 6.0-8.5 [facility]; [facility] Work Phone: Comment on above: PATIENT NOT FASTINGP ERFORMED BY: CB [facility] Gzogmr1982 [address] RoadDublin [place] [id number] Sodium [Moles/Vol] 139 mmol/L Normal 134-144 [facility]; [facility] Work Phone: Comment on above: PATIENT NOT FASTINGP ERFORMED BY: CB [facility] Frrgxp3302 [address] RoadDublin [place] [id number] Urea nitrogen [Mass/Vol] 12 mg/dL Normal 6-24 [facility]; [facility] Work Phone: Comment on above: PATIENT NOT FASTINGP ERFORMED BY: CB [facility] Ndwwez5239 [address] RoadDublin [place] [id number] Urea nitrogen/Creatinine [Mass ratio] 17 mg/mg Normal 9-23 [facility]; [facility] Work Phone: Comment on above: PATIENT NOT FASTINGP ERFORMED BY: CB [facility] Ojiwkg3391 [address] RoadDublin [place] [id number] T3, FREE (TRIDOTHYRONINE) (8 3047)Ordered By: Bag Press Operator on 05-17-2014 Free T3 [Mass/Vol] 5.1 pg/mL Abnormal 2.0-4.4 [facility]; [facility] Work Phone: Comment on above: PATIENT NOT FASTINGP ERFORMED BY: CB [facility] Dspbwm9912 [address] RoadDublin [place] [id number] T4, FREE (THYROXINE) (18471) Ordered By: Bag Press Operator on 05-17-2014 Free T4 [Mass/Vol] 0.89 ng/dL Normal 0.82-1.77 [facility]; [facility] Work Phone: Comment on above: PATIENT NOT FASTINGP ERFORMED BY: CB [facility] Hlolwy5751 [address] RoadDublin [place] [id number] TSH (14989)Ordered By: Solxe m Alternative Financing Specialist on 05-17-2014 TSH Qn 0.512 {uIU/mL} Normal 0.450-4.50 0 [facility]; [facility] Work Phone: Comment on above: PATIENT NOT FASTINGP ERFORMED BY: CB [facility] Qhcqbs4518 [address] RoadDublin [place] [id number] URINALYSIS, W/ MICRO (13837) Ordered By: Bag Press Operator on 05-17-2014 Appearance (U) Clear Normal Comprehens thomas Internal Medicine; [facility] Work Phone: Comment on above: PATIENT NOT FASTINGP ERFORMED BY: CB [facility] Bujfhb2359 [address] RoadDublin [place] [id number] Bilirubin Ql (U) Negative Normal Comprehe nsive Internal Medicine; [facility] Work Phone: Comment on above: PATIENT NOT FASTINGP ERFORMED BY: CB [facility] Aqqojh8[address] RoadDublin [place] [id number] Color (U) Yellow Normal [facility]; [facility] Work Phone: Comment on above: PATIENT NOT FASTINGP ERFORMED BY: AMIRA [facility] Krusxn4879 [address] RoadDublin [place] [id number] Glucose Ql (U) Negative Normal Comprehens thomas [facility]; [facility] Work Phone: Comment on above: PATIENT NOT FASTINGP ERFORMED BY: AMIRA [facility] Xmblvo8116 [address] RoadDublin [place] [id number] Hemoglobin Ql (U) Negative Normal Compreh ensive Internal Medicine; [facility] Work Phone: Comment on above: PATIENT NOT FASTINGP ERFORMED BY: AMIRA [facility] Kzknkd4055 [address] RoadDublin [place] [id number] Ketones Ql (U) Negative Normal Comprehens thomas [facility]; [facility] Work Phone: Comment on above: PATIENT NOT FASTINGP ERFORMED BY: AMIRA [facility] Thapip0707 [address] RoadDublin [place] [id number] Leukocyte esterase Test strip Ql (U) Negative Normal [facility]; [facility] Work Phone: Comment on above: PATIENT NOT FASTINGP ERFORMED BY: AMIRA [facility] Dtulce9130 [address] RoadDublin [place] [id number] Microscopic observation LM Nom (Urine sed) MICRON Normal [facility]; [facility] Work Phone: Comment on above: Microscopic follows if indicated. PATIENT NOT FASTINGP ERFORMED BY: AMIRA [facility] Alpozt3997 [address] RoadDublin [place] [id number] Microscopic observation LM Nom (Urine sed) See below: Normal [facility]; [facility] Work Phone: Comment on above: Microscopic was claudio cated and was performed. PATIENT NOT FASTINGP ERFORMED BY: AMIRA [facility] Hrenhz7794 [address] RoadDublin [place] [id number] Nitrite Ql (U) Negative Normal Comprehens thomas [facility]; [facility] Work Phone: Comment on above: PATIENT NOT FASTINGP ERFORMED BY: AMIRA [facility] Sogwwp2868 [address] RoadDublin [place] [id number] pH (U) 7.0 [pH] Normal 5.0-7.5 [facility]; [facility] Work Phone: Comment on above: PATIENT NOT FASTINGP ERFORMED BY: AMIRA Peter6370 [facility] [id number] Protein Ql (U) Negative Normal [facility] Medicine; [facility] Work Phone: Comment on above: PATIENT NOT FASTINGP ERFORMED BY: AMIRA [facility]Saint [facility] Asifmg7333 [facility] [id number] Specific gravity (U) [Rel density] 1.012 1 Normal 1.005-1.03 0 [facility]; [facility] Work Phone: Comment on above: PATIENT NOT FASTINGP ERFORMED BY: [facility]ineSaint [facility] Mqhfxs2166 [facility] [id number] Urobilinogen (U) [Mass/Vol] 1.0 mg/dL Normal 0.0-1.9 [facility]; [facility] Work Phone: Comment on above: PATIENT NOT FASTINGP ERFORMED BY: ClaudineSaint [facility] Sgwyzl4986 [facility] [id number] T3, FREE (TRIDOTHYRONINE) (8 0135)Ordered By: Bag Press Operator on 08-06-2013 Free T3 [Mass/Vol] 7.3 pg/mL Abnormal 2.0-4.4 [facility] Internal Medicine; [facility] Work Phone: Comment on above: PATIENT NOT FASTINGP ERFORMED BY: [facility]6370 [facility] [id number] T4, FREE (THYROXINE) (79307) Ordered By: Bag Press Operator on 08-06-2013 Free T4 [Mass/Vol] 1.12 ng/dL Normal 0.82-1.77 [facility] Internal Medicine; [facility] Work Phone: Comment on above: PATIENT NOT FASTINGP ERFORMED BY: LabSaint [facility] Zmjngg3058 [facility] [id number] TSH (80065)Ordered By: Radha m Alternative Financing Specialist on 08-06-2013 TSH Qn 0.594 {uIU/mL} Normal 0.450-4.50 0 [facility]; [facility] Work Phone: Comment on above: PATIENT NOT FASTINGP ERFORMED BY: NETpeas70 CrownPeakCaroMont Health [id number] Information: [id number] CALCIFIDIOL (84433) VIT D 25 Ordered By: Bag Press Operator on 07-30-2013 25-hydroxyvitamin D [Mass/Vol] 40.7 ng/mL Normal 30.0-100.0 [facility]; [facility] Work Phone: Comment on above: Vitamin D deficiency has been defined by the [place] of[place]icine and an Endocrine Society practice guideline as alevel of serum 25-OH vitamin D less than 20 ng/mL (1,2).The Endocrine Society went on to further define vitamin Dinsufficiency as a level between 21 and 29 ng/mL (2).1. IOM ([place] of [employer]). 2010. Dietary reference intakes for calcium and D. [place]: The National Academies Press.2. Brice MF, Olu [place], Jennifer JIMENEZ, et al. Evaluation, treatment, and prevention of vitamin D deficiency: an Endocrine Society clinical practice guideline. JCEM. 2010; 96(7):1911-30. PATIENT WAS FASTINGP ERFORMED BY: [facility]6370 CrownPeakCaroMont [facility] [id number] LIPID PANEL (79673)Ordered B y: Bag Press Operator on 07-30-2013 Cholesterol [Mass/Vol] 253 mg/dL Abnormal 100-199 [facility]; [facility] Work Phone: Comment on above: PATIENT WAS FASTINGP ERFORMED BY: [facility]6370 CrownPeakCaro[facility] [id number] Cholesterol in HDL [Mass/Vol] 51 mg/dL Normal [facility]; [facility] Work Phone: Comment on above: According to ATP-III Guidelines, HDL-C >59 mg/dL is considered anegative risk factor for CHD. PATIENT WAS FASTINGP ERFORMED BY: CB [facility] Xmazld4972 [address] RoadDublin [place] [id number] Cholesterol in LDL [Mass/Vol] 182 mg/dL Abnormal 0-99 [facility]; [facility] Work Phone: Comment on above: PATIENT WAS FASTINGP ERFORMED BY: AMIRA [facility] Cqcxdn8169 [address] RoadDublin [place] [id number] Cholesterol in LDL/Cholesterol in HDL [Mass ratio] 3.6 {ratio_units} Abnormal 0.0-3.2 [facility]; [facility] Work Phone: Comment on above: PATIENT WAS FASTINGP ERFORMED BY: AMIRA [facility] Qbltuw7121 [address] RoadDublin [place] [id number] Cholesterol in VLDL [Mass/Vol] 20 mg/dL Normal 5-40 [facility]; [facility] Work Phone: Comment on above: PATIENT WAS FASTINGP ERFORMED BY: AMIRA [facility] Igcyrr8833 [address] RoadDublin [place] [id number] Triglyceride [Mass/Vol] 98 mg/dL Normal 0-149 [facility]; [facility] Work Phone: Comment on above: PATIENT WAS FASTINGP ERFORMED BY: AMIRA [facility] Qcksdb6618 [address] Roadblin [place] [id number] METABOLIC PANEL, COMPREHENSI VE (48106)Ordered By: Bag Press Operator on 07-30-2013 Albumin [Mass/Vol] 4.2 g/dL Normal 3.5-5.5 [facility] Internal Medicine; [facility] Work Phone: Comment on above: PATIENT WAS FASTINGP ERFORMED BY: AMIRA [facility] Vmeomu8699 [address] RoadDublin [place] [id number] Information: [id number] Albumin/Globulin [Mass ratio] 1.8 {ratio} Normal 1.1-2.5 [facility]; [facility] Work Phone: Comment on above: PATIENT WAS FASTINGP ERFORMED BY: AMIRA [facility] Qxkwop6[address] RoadDublin [place] [id number] Information: [id number] ALP [Catalytic activity/Vol] 83 U/L Normal 39-117 [facility]; [facility] Work Phone: Comment on above: PATIENT WAS FASTINGP ERFORMED BY: AMIRA ChowCotameka PeterPxvmln8933 [facility] [id number] Information: [id number] ALT [Catalytic activity/Vol] 23 U/L Normal 0-32 [facility]; [facility] Work Phone: Comment on above: PATIENT WAS FASTINGP ERFORMED BY: [facility] Ftvoih3573 [facility] [id number] Information: [id number] AST [Catalytic activity/Vol] 21 U/L Normal 0-40 [facility]; [facility] Work Phone: Comment on above: PATIENT WAS FASTINGP ERFORMED BY: LabMymich[facility]6370 [facility] [id number] Information: [id number] Bilirubin [Mass/Vol] 0.4 mg/dL Normal 0.0-1.2 [facility] rehensive Internal Medicine; [facility] Work Phone: Comment on above: PATIENT WAS FASTINGP ERFORMED BY: AMIRA LabSaint [facility] Ryjafi5946 [facility] [id number] Information: [id number] Calcium [Mass/Vol] 9.3 mg/dL Normal 8.7-10.2 [facility] Internal Medicine; [facility] Work Phone: Comment on above: PATIENT WAS FASTINGP ERFORMED BY: [facility] Ujfbxo9537 [facility] [id number] Information: [id number] Chloride [Moles/Vol] 103 mmol/L Normal 97-108 [facility]; [facility] Work Phone: Comment on above: PATIENT WAS FASTINGP ERFORMED BY: LabSaint [facility] Zmjpkv7217 [facility] [id number] Information: [id number] CO2 [Moles/Vol] 23 mmol/L Normal 19-28 [facility] Internal Medicine; [facility] Work Phone: [...] - 29 PATIENT WAS FASTINGP ERFORMED BY: CB [facility] Skrmph0152 [facility] [id number] Information: [id number] Creatinine [Mass/Vol] 0.78 mg/dL Normal 0.57-1.00 [facility] prehensive Internal Medicine; [facility] Work Phone: Comment on above: PATIENT WAS FASTINGP ERFORMED BY: CB [facility] Ihvzxn7326 [facility] [id number] Information: [id number] GFR/1.73 sq M.predicted among blacks CKD-EPI (S/P/Bld) [Vol rate/Area] 108 mL/min/1.73 Normal [facility]; [facility] Work Phone: Comment on above: PATIENT WAS FASTINGP ERFORMED BY: CB LabMedPassagerp Snemtd4738 [facility] [id number] Information: [id number] GFR/1.73 sq M.predicted among non-blacks CKD-EPI (S/P/Bld) [Vol rate/Area] 93 mL/min/1.73 Normal [facility]; [facility] Work Phone: Comment on above: PATIENT WAS FASTINGP ERFORMED BY: CB [facility] Rsyowj3440 [facility] [id number] Information: [id number] Globulin (S) [Mass/Vol] 2.3 g/dL Normal 1.5-4.5 [facility]; [facility] Work Phone: Comment on above: PATIENT WAS FASTINGP ERFORMED BY: CB [facility] Uvzbow9894 [facility] [id number] Information: [id number] Glucose [Mass/Vol] 94 mg/dL Normal 65-99 [facility]; [facility] Work Phone: Comment on above: PATIENT WAS FASTINGP ERFORMED BY: AMIRA Felisa Dgmowx7832 [facility] [id number] Information: [id number] Potassium [Moles/Vol] 4.5 mmol/L Normal 3.5-5.2 [facility] Internal Medicine; [facility] Work Phone: Comment on above: PATIENT WAS FASTINGP ERFORMED BY: AMIRA LabIsabel Xsihzw0397 [facility] [id number] Information: [id number] Protein [Mass/Vol] 6.5 g/dL Normal 6.0-8.5 [facility]; [facility] Work Phone: Comment on above: PATIENT WAS FASTINGP ERFORMED BY: AMIRA [facility] Fdyrra2415 [facility] [id number] Information: [id number] Sodium [Moles/Vol] 141 mmol/L Normal 134-144 [facility]; [facility] Work Phone: Comment on above: PATIENT WAS FASTINGP ERFORMED BY: AMIRA [facility] Qcqaju6278 [facility] [id number] Information: [id number] Urea nitrogen [Mass/Vol] 13 mg/dL Normal 6-24 [facility]; [facility] Work Phone: Comment on above: PATIENT WAS FASTINGP ERFORMED BY: AMIRA LabCo Qxgpfw9607 [facility] [id number] Information: [id number] Urea nitrogen/Creatinine [Mass ratio] 17 mg/mg Normal 9-23 [facility]; [facility] Work Phone: Comment on above: PATIENT WAS FASTINGP ERFORMED BY: AMIRA [facility] Rgnvmr0623 [facility] [id number] Information: [id number] CADE (ANTINUCLEAR ANTIBODY) ( 15990)Ordered By: Bag Press Operator on 03-19-2013 Nuclear Ab Ql (S) Negative Normal Compreh ensive Internal Medicine; [facility] Work Phone: Comment on above: PATIENT NOT FASTINGP ERFORMED BY: [facility]6370 [facility] [id number] BY: [employer] [id number] BY: [employer] [id number] C-REACTIVE PROTEIN (64699)Or dered By: Bag Press Operator on 03-19-2013 CRP [Mass/Vol] 1.9 mg/L Normal 0.0-4.9 Comprehens [facility]; [facility] Work Phone: Comment on above: PATIENT NOT FASTINGP ERFORMED BY: [facility]6370 [facility] [id number] BY: [employer] [id number] BY: [employer] [id number] CCP ANTIBODY (21672)Ordered By: Bag Press Operator on 03-19-2013 Cyclic citrullinated peptide IgA+IgG IA Qn 18 {units} Normal 0-19 [facility]; [facility] Work Phone: Comment on above: Negative <20 Weak po sitive 20 - 39 Moderate positive 40 - 59 Strong positive >59 PATIENT NOT FASTINGP ERFORMED BY: [facility]6370 [facility] [id number] BY: [employer] [id number] BY: [employer] [id number] Lyme Disease Antibody W/ Ref kari (05652)Ordered By: Bag Press Operator on 03-19-2013 Lyme Disease Antibody W/ Reflex (36842) <0.91 Normal 0.00-0.90 [facility]; [facility] [...] Western blot. PATIENT NOT FASTINGP ERFORMED BY: [facility] [id number] BY: [employer] [place] [address] [place] [address] [id number] BY: [employer] [address] [id number] Lyme Disease Antibody W/ Reflex (05799) Negative Normal [facility]; [facility] Work Phone: Comment on above: PATIENT NOT FASTINGP ERFORMED BY: TidalScale [facility] [id number] BY: [employer] [place] ECS9050 [facility] [id number] BY: Holidu[address] [id number] RHEUMATOID FACTOR-QUANT (863 92)Ordered By: Bag Press Operator on 03-19-2013 Rheumatoid factor Qn 6.6 [IU]/mL Normal 0.0-13.9 [facility] prehensive Internal Medicine; [facility] Work Phone: Comment on above: PATIENT NOT FASTINGP ERFORMED BY: NETpeas70 [facility] [id number] BY: [employer] [place] E[address] [place] [address] [id number] BY: [employer] [address] [id number] SED RATE ERYTHROCYTE (03161) Ordered By: Bag Press Operator on 03-19-2013 ESR (Bld) [Velocity] 2 mm/h Normal 0-32 Comp rehensive Internal Medicine; [facility] Work Phone: Comment on above: PATIENT NOT FASTINGP ERFORMED BY: AMIRA Felisa Ujadeg7587 [facility] [place] [id number] BY: 2Q [facility] WYD7941 [facility] [id number] BY: BN [place] 636967 [facility] [id number] T4, FREE (THYROXINE) (83365) Ordered By: Bag Press Operator on 03-13-2013 Free T4 [Mass/Vol] 0.76 ng/dL Abnormal 0.82-1.77 [facility] Internal [facility]; [facility] Work Phone: Comment on above: PATIENT NOT FASTINGP ERFORMED BY: AMIRA [facility] Dokinr6271 [facility] [id number] Information: [id number] TSH (76043)Ordered By: Radha m Alternative Financing Specialist on 03-13-2013 TSH Qn 2.000 {uIU/mL} Normal 0.450-4.50 0 [facility]; [facility] Work Phone: Comment on above: PATIENT NOT FASTINGP ERFORMED BY: AMIRA [facility] Srppoq2701 [facility] [id number] T3, FREE (TRIDOTHYRONINE) (2 1059)Ordered By: Bag Press Operator on 01-26-2013 Free T3 [Mass/Vol] 2.6 pg/mL Normal 2.0-4.4 [facility]; [facility] Work Phone: Comment on above: PATIENT NOT FASTINGP ERFORMED BY: [facility] Ilzlnp0365 [facility] [place] [id number] T4, FREE (THYROXINE) (89263) Ordered By: Bag Press Operator on 01-26-2013 Free T4 [Mass/Vol] 0.70 ng/dL Abnormal 0.82-1.77 [facility]; [facility] Work Phone: Comment on above: PATIENT NOT FASTINGP ERFORMED BY: AMIRA [facility] Rzakth1273 [facility] [id number] Information: [id number] TSH (12455)Ordered By: Radah gil Alternative Financing Specialist on 01-26-2013 TSH Qn 0.275 {uIU/mL} Abnormal 0.450-4.50 0 [facility]; [facility] Work Phone: Comment on above: PATIENT NOT FASTINGP ERFORMED BY: LabDandelion6370 [facility] [id number] CALCIFIDIOL (50026) VIT D 25 Ordered By: Bag Press Operator on 10-17-2012 25-hydroxyvitamin D [Mass/Vol] 41.1 ng/mL Normal 30.0-100.0 [facility]; [facility] Work Phone: Comment on above: Vitamin D deficiency has been defined by the [place] of[place]icine and an Endocrine Society practice guideline as alevel of serum 25-OH vitamin D less than 20 ng/mL (1,2).The Endocrine Society went on to further define vitamin Dinsufficiency as a level between 21 and 29 ng/mL (2).1. IOM ([place] of Medicine). 2010. Dietary reference intakes for calcium and D. [place]: The National Academies Press.2. Brice MF, Olu FRANCIS, Jennifer JIMENEZ, et al. Evaluation, treatment, and prevention of vitamin D deficiency: an Endocrine Society clinical practice guideline. JCEM. 2010; 96(7):1911-30. PATIENT NOT FASTINGP ERFORMED BY: [facility]6370 [facility] [id number] T3, FREE (TRIDOTHYRONINE) (8 7106)Ordered By: Bag Press Operator on 10-17-2012 Free T3 [Mass/Vol] 6.2 pg/mL Abnormal 2.0-4.4 [facility] Internal Medicine; [facility] Work Phone: Comment on above: PATIENT NOT FASTINGP ERFORMED BY: [employer] Gvhbzg6322 [facility] [id number] T4, FREE (THYROXINE) (09263) Ordered By: Bag Press Operator on 10-17-2012 Free T4 [Mass/Vol] 1.36 ng/dL Normal 0.82-1.77 Compre hensive [facility]; [facility] Work Phone: Comment on above: PATIENT NOT FASTINGP ERFORMED BY: [employer] LabMedPassagerp Nuykch9079 [address] [facility]ingC[facility] [id number] Information: [id number] TSH (01956)Ordered By: Solxe m Alternative Financing Specialist on 10-17-2012 TSH Qn 0.023 {uIU/mL} Abnormal 0.450-4.50 0 [facility]; [facility] Work Phone: Comment on above: PATIENT NOT FASTINGP ERFORMED BY: [employer] [facility] Bwpdhe3529 [facility]ingC[facility] [id number] URINE GERONIMO CULTURE-IDENTIFICA TN (38581)Ordered By: Bag Press Operator on 09-12-2012 Bacteria identified Cx Nom (U) Final report Normal [facility]; [facility] Work Phone: Comment on above: PATIENT NOT FASTINGP ERFORMED BY: [employer] LabMedPassagerp Acwdvy1732 [facility] [id number] Information: ADD [id number] Bacteria identified Cx Nom (U) MUG Normal [facility]; [facility] Work Phone: Comment on above: Mixed urogenital velvet ra10,000-25,000 colony forming units per mL PATIENT NOT FASTINGP ERFORMED BY: [employer] LabMedPassagerp Jlhxve3486 [facility] [id number] Information: ADD [id number] Urinalysis, Office (95572)Or dered By: PETE Del Valle on 09-12-2012 [...] Phone: HEPATIC FUNCTION PANEL (8007 6)Ordered By: Bag Press Operator on 09-04-2012 Albumin [Mass/Vol] 4.1 g/dL Normal 3.5-5.5 [facility]pre [facility]; [facility] Work Phone: Comment on above: PATIENT WAS FASTINGP ERFORMED BY: LabCoMorristown Medical CenterJrieuh8586 [facility] [id number] ALP [Catalytic activity/Vol] 80 U/L Normal 25-150 [...] - 108 PATIENT WAS FASTINGP ERFORMED BY: [facility] Ufgoxq4366 Allen RoadDublin [place] [id number] ALT [Catalytic activity/Vol] 16 U/L Normal 0-32 [facility]; [facility] Work Phone: Comment on above: PATIENT WAS FASTINGP ERFORMED BY: [facility] Gmhgll9307 Allen RoadDublin [place] [id number] AST [Catalytic activity/Vol] 14 U/L Normal 0-40 [facility]; [facility] Work Phone: Comment on above: PATIENT WAS FASTINGP ERFORMED BY: LabCo Fwbcjj2298 Allen RoadDublin [place] [id number] Bilirubin [Mass/Vol] 0.3 mg/dL Normal 0.0-1.2 [facility]; [facility] Work Phone: Comment on above: PATIENT WAS FASTINGP ERFORMED BY: LabSaint [facility] Hrysrn1574 Allen RoadDublin [place] [id number] Bilirubin.direct [Mass/Vol] 0.09 mg/dL Normal 0.00-0.40 [facility]; [facility] Work Phone: Comment on above: PATIENT WAS FASTINGP ERFORMED BY: [facility] Ioyvlu0595 [address] RoadDublin [place] [id number] Protein [Mass/Vol] 6.8 g/dL Normal 6.0-8.5 [facility] Internal [facility]; [facility] Work Phone: Comment on above: PATIENT WAS FASTINGP ERFORMED BY: [facility] Iyjfet9829 [address] RoadDublin [place] [id number] LIPID PANEL (34044)Ordered B y: Bag Press Operator on 09-04-2012 Cholesterol [Mass/Vol] 226 mg/dL Abnormal 100-199 [facility]; [facility] Work Phone: Comment on above: PATIENT WAS FASTINGP ERFORMED BY: [facility] Ifonoc5994 [address] RoadDublin [place] [id number] Information: [id number] Cholesterol in HDL [Mass/Vol] 53 mg/dL Normal [facility]; [facility] Work Phone: Comment on above: According to ATP-III Guidelines, HDL-C >59 mg/dL is considered anegative risk factor for CHD. PATIENT WAS FASTINGP ERFORMED BY: [facility] Tbmcbe4117 [facility] [id number] Information: [id number] Cholesterol in LDL [Mass/Vol] 143 mg/dL Abnormal 0-99 [facility]; [facility] Work Phone: Comment on above: PATIENT WAS FASTINGP ERFORMED BY: [facility] Ujhmmr8777 [facility] [id number] Information: [id number],[id number] Cholesterol in LDL/Cholesterol in HDL [Mass ratio] 2.7 {ratio_units} Normal 0.0-3.2 [facility]; [facility] Work Phone: Comment on above: PATIENT WAS FASTINGP ERFORMED BY: LabSaint [facility] Ckhdwt6195 [facility] [id number] Information: [id number] Cholesterol in VLDL [Mass/Vol] 30 mg/dL Normal 5-40 [facility]; [facility] Work Phone: Comment on above: PATIENT WAS FASTINGP ERFORMED BY: [facility] Zdxmsa9238 [facility] [id number] Information: 583501,[id number] Triglyceride [Mass/Vol] 152 mg/dL Abnormal 0-149 [facility]; [facility] Work Phone: Comment on above: PATIENT WAS FASTINGP ERFORMED BY: [facility] Tvktnw0756 [facility] [id number] Information: 680697,[id number] CALCIFIDIOL (41554) VIT D 25 Ordered By: Bag Press Operator on 06-11-2012 25-hydroxyvitamin D [Mass/Vol] 32.2 ng/mL Normal 30.0-100.0 [facility]; [facility] Work Phone: Comment on above: Vitamin D deficiency has been defined by the [place] of[place]icine and an Endocrine Society practice guideline as alevel of serum 25-OH vitamin D less than 20 ng/mL (1,2).The Endocrine Society went on to further define vitamin Dinsufficiency as a level between 21 and 29 ng/mL (2).1. IOM ([place] of [place]). 2010. Dietary reference intakes for calcium and D. [place]: The National Academies Press.2. Brice MF, Olu FRANCIS, Jennifer JIMENEZ, et al. Evaluation, treatment, and prevention of vitamin D deficiency: an Endocrine Society clinical practice guideline. JCEM. 2010; 96(7):1911-30. PATIENT WAS FASTINGP ERFORMED BY: CB [facility] Vhxtgn1130 [address] RoadDublin [place] [id number] HEPATIC FUNCTION PANEL (8007 6)Ordered By: Bag Press Operator on 06-11-2012 Albumin [Mass/Vol] 4.3 g/dL Normal 3.5-5.5 [facility]; [facility] Work Phone: Comment on above: PATIENT WAS FASTINGP ERFORMED BY: CB [facility] Ufbmey7776 [address] RoadDublin [place] [id number] ALP [Catalytic activity/Vol] 92 U/L Normal 25-150 [facility]; [facility] Work Phone: Comment on above: PATIENT WAS FASTINGP ERFORMED BY: CB [facility] Hrhtgf5004 [address] RoadDublin [place] [id number] ALT [Catalytic activity/Vol] 15 U/L Normal 0-32 [facility]; [facility] Work Phone: Comment on above: PATIENT WAS FASTINGP ERFORMED BY: CB [facility] Valqdy5947 [address] RoadDublin [place] [id number] AST [Catalytic activity/Vol] 13 U/L Normal 0-40 [facility]; [facility] Work Phone: Comment on above: PATIENT WAS FASTINGP ERFORMED BY: CB [facility] Qnqrwi1502 [address] RoadDublin [place] [id number] Bilirubin [Mass/Vol] 0.3 mg/dL Normal 0.0-1.2 [facility]; [facility] Work Phone: Comment on above: PATIENT WAS FASTINGP ERFORMED BY: AMIRA [facility] Sirjbs0959 [facility] [place] [id number] Bilirubin.direct [Mass/Vol] 0.08 mg/dL Normal 0.00-0.40 [facility]; [facility] Work Phone: Comment on above: PATIENT WAS FASTINGP ERFORMED BY: AMIRA [facility] Tgvegb5585 [address] [facility] [id number] Protein [Mass/Vol] 6.8 g/dL Normal 6.0-8.5 [facility]; [facility] Work Phone: Comment on above: PATIENT WAS FASTINGP ERFORMED BY: AMIRA [facility] Bvzdxy0755 [facility] [id number] LIPID PANEL (38130)Ordered B y: Bag Press Operator on 06-11-2012 Cholesterol [Mass/Vol] 269 mg/dL Abnormal 100-199 [facility]; [facility] Work Phone: Comment on above: PATIENT WAS FASTINGP ERFORMED BY: AMIRA [facility] Lkgcii4519 [facility] [id number] Cholesterol in HDL [Mass/Vol] 49 mg/dL Normal [facility]; [facility] Work Phone: Comment on above: According to ATP-III Guidelines, HDL-C >59 mg/dL is considered anegative risk factor for CHD. PATIENT WAS FASTINGP ERFORMED BY: AMIRA [facility] Bkckef6435 [address] [facility]in [place] [id number] Cholesterol in LDL [Mass/Vol] 194 mg/dL Abnormal 0-99 [facility]; [facility] Work Phone: Comment on above: PATIENT WAS FASTINGP ERFORMED BY: AMIRA [facility] Smkmix6050 [facility] [place] [id number] Cholesterol in LDL/Cholesterol in HDL [Mass ratio] 4.0 {ratio_units} Abnormal 0.0-3.2 [facility]; [facility] Work Phone: Comment on above: PATIENT WAS FASTINGP ERFORMED BY: [facility] Btgqac7477 [facility] [place] [id number] Cholesterol in VLDL [Mass/Vol] 26 mg/dL Normal 5-40 [facility]; [facility] Work Phone: Comment on above: PATIENT WAS FASTINGP ERFORMED BY: [facility] Gakfnr9868 [facility] [place] [id number] Triglyceride [Mass/Vol] 129 mg/dL Normal 0-149 [facility]; [facility] Work Phone: Comment on above: PATIENT WAS FASTINGP ERFORMED BY: [facility] Mopyti8803 [facility] [place] [id number] TSH (75807)Ordered By: [employer] Alternative Financing Specialist on 06-11-2012 TSH Qn 3.730 {uIU/mL} Normal 0.450-4.50 0 [facility]; [facility] Work Phone: Comment on above: PATIENT WAS FASTINGP ERFORMED BY: [facility] Rbdvps7174 [facility] [place] [id number] Anti-TPO Antibody (91763)Ord ered By: Bag Press Operator on 03-31-2012 TPO Ab Qn 120 [IU]/mL Abnormal 0-34 [facility]; [facility] Work Phone: Comment on above: PATIENT WAS FASTINGP ERFORMED BY: [facility] Akuepm4165 [facility] [place] [id number] CALCIFIDIOL (47655) VIT D 25 Ordered By: Bag Press Operator on 03-31-2012 25-hydroxyvitamin D [Mass/Vol] 20.0 ng/mL Abnormal 30.0-100.0 [facility]; [facility] Work Phone: Comment on above: Vitamin D deficiency has been defined by the [place] of[place]icine and an Endocrine Society practice guideline as alevel of serum 25-OH vitamin D less than 20 ng/mL (1,2).The Endocrine Society went on to further define vitamin Dinsufficiency as a level between 21 and 29 ng/mL (2).1. IOM ([place] of Medicine). 2010. Dietary reference intakes for calcium and D. [place]: The National Academies Press.2. Brice MF, Olu [place], Jennifer JIMENEZ, et al. Evaluation, treatment, and prevention of vitamin D deficiency: an Endocrine Society clinical practice guideline. JCEM. 2010; 96(7):1911-30. PATIENT WAS FASTINGP ERFORMED BY: CB [facility] Lageoh6181 [address] RoadDublin [place] [id number] CBC (Auto) (55358)Ordered By : Bag Press Operator on 03-31-2012 Erythrocyte distribution width (RBC) [Ratio] 13.8 % Normal 12.3-15.4 [facility]; [facility] Work Phone: Comment on above: PATIENT WAS FASTINGP ERFORMED BY: CB [facility] Kyfcea8318 [address] RoadDublin [place] [id number] Hematocrit (Bld) [Volume fraction] 42.0 % Normal 34.0-46.6 [facility] Internal Medicine; [facility] Work Phone: Comment on above: PATIENT WAS FASTINGP ERFORMED BY: CB [facility] Cmbimh8060 [address] RoadDublin [place] [id number] Hemoglobin (Bld) [Mass/Vol] 14.4 g/dL Normal 11.1-15.9 [facility] Internal Medicine; [facility] Work Phone: Comment on above: PATIENT WAS FASTINGP ERFORMED BY: CB [facility] Tmghuo7323 [address] RoadDublin [place] [id number] MCH (RBC) [Entitic mass] 29.9 pg Normal 26.6-33.0 [facility]; [facility] Work Phone: Comment on above: PATIENT WAS FASTINGP ERFORMED BY: CB [facility] Amdjci4189 [address] RoadDublin [place] [id number] MCHC (RBC) [Mass/Vol] 34.3 g/dL Normal 31.5-35.7 [facility] Internal [facility]; [facility] Work Phone: Comment on above: PATIENT WAS FASTINGP ERFORMED BY: CB [facility] Hblznh3696 [address] RoadDublin [place] [id number] MCV (RBC) [Entitic vol] 87 fL Normal 79-97 [facility]; [facility] Work Phone: Comment on above: PATIENT WAS FASTINGP ERFORMED BY: AMIRA LabCotameka MarieRiscwl3919 [address] [facility] [place] [id number] Platelets (Bld) [#/Vol] 282 10*3/uL Normal 140-415 [facility]; [facility] Work Phone: Comment on above: PATIENT WAS FASTINGP ERFORMED BY: CB [facility] Tysrml2542 [facility] [id number] RBC (Bld) [#/Vol] 4.82 10*6/uL Normal 3.77-5.28 Compr [facility] Internal Medicine; [facility] Work Phone: Comment on above: PATIENT WAS FASTINGP ERFORMED BY: AMIRA [facility] Lqyexv6093 [facility] [id number] WBC (Bld) [#/Vol] 7.2 10*3/uL Normal 4.0-10.5 [facility]; [facility] Work Phone: Comment on above: PATIENT WAS FASTINGP ERFORMED BY: AMIRA [facility] Isycam6121 [facility] [id number] Lipid Panel (11607)Ordered B y: Bag Press Operator on 03-31-2012 Cholesterol [Mass/Vol] 256 mg/dL Abnormal 100-199 [facility]; [facility] Work Phone: Comment on above: PATIENT WAS FASTINGP ERFORMED BY: CB [facility] Ywwqep5938 [facility] [id number] Cholesterol in HDL [Mass/Vol] 50 mg/dL Normal [facility]; [facility] Work Phone: Comment on above: According to ATP-III Guidelines, HDL-C >59 mg/dL is considered anegative risk factor for CHD. PATIENT WAS FASTINGP ERFORMED BY: CB [facility] Dusfkm8987 [address] [facility] HospitalDublin [place] [id number] Cholesterol in LDL [Mass/Vol] 179 mg/dL Abnormal 0-99 [facility]; [facility] Work Phone: Comment on above: PATIENT WAS FASTINGP ERFORMED BY: AMIRA [facility] Ekbjnk1921 [facility] [place] [id number] Cholesterol in LDL/Cholesterol in HDL [Mass ratio] 3.6 {ratio_units} Abnormal 0.0-3.2 [facility]; [facility] Work Phone: Comment on above: PATIENT WAS FASTINGP ERFORMED BY: AMIRA [facility] Bdfkfv5398 [facility] [id number] Cholesterol in VLDL [Mass/Vol] 27 mg/dL Normal 5-40 [facility]; [facility] Work Phone: Comment on above: PATIENT WAS FASTINGP ERFORMED BY: AMIRA [facility]Co [id number] [facility] [id number] Triglyceride [Mass/Vol] 133 mg/dL Normal 0-149 [facility]; [facility] Work Phone: Comment on above: PATIENT WAS FASTINGP ERFORMED BY: AMIRA [facility] Ciycgp1867 [facility] [id number] Metabolic Panel, Comprehensi ve ([id number])Ordered By: Bag Press Operator on 03-31-2012 Albumin [Mass/Vol] 4.2 g/dL Normal 3.5-5.5 [facility]; [facility] Work Phone: Comment on above: PATIENT WAS FASTINGP ERFORMED BY: [facility] Pqsfix5905 [facility] [id number] Information: [id number] Albumin/Globulin [Mass ratio] 1.6 {ratio} Normal 1.1-2.5 [facility]; [facility] Work Phone: Comment on above: PATIENT WAS FASTINGP ERFORMED BY: AMIRA [facility] Rrrrzf8232 [facility] [id number] Information: [id number] ALP [Catalytic activity/Vol] 85 U/L Normal 25-150 [facility]; [facility] Work Phone: Comment on above: PATIENT WAS FASTINGP ERFORMED BY: CB [facility]6370 [facility] [id number] Information: [id number] ALT [Catalytic activity/Vol] 15 U/L Normal 0-32 [facility]; [facility] Work Phone: Comment on above: PATIENT WAS FASTINGP ERFORMED BY: [facility]6370 [facility] [id number] Information: [id number] AST [Catalytic activity/Vol] 12 U/L Normal 0-40 [facility]; [facility] Work Phone: Comment on above: PATIENT WAS FASTINGP ERFORMED BY: [facility]6370 [facility] [id number] Information: [id number] Bilirubin [Mass/Vol] 0.5 mg/dL Normal 0.0-1.2 Comp rehensive Internal Medicine; [facility] Work Phone: Comment on above: PATIENT WAS FASTINGP ERFORMED BY: [facility]6370 [facility] [id number] Information: [id number] Calcium [Mass/Vol] 9.2 mg/dL Normal 8.7-10.2 [facility]; [facility] Work Phone: Comment on above: PATIENT WAS FASTINGP ERFORMED BY: [facility]6370 [facility] [id number] Information: [id number] Chloride [Moles/Vol] 102 mmol/L Normal 97-108 Comp rehensive Internal Medicine; [facility] Work Phone: Comment on above: PATIENT WAS FASTINGP ERFORMED BY: [facility] Dnyrhe0321 [facility] [id number] Information: [id number] CO2 [Moles/Vol] 24 mmol/L Normal 20-32 [facility]; [facility] Work Phone: Comment on above: PATIENT WAS FASTINGP ERFORMED BY: AMIRA [facility]Saint [facility] Nchmyy0734 [facility] [id number] Information: [id number] Creatinine [Mass/Vol] 0.73 mg/dL Normal 0.57-1.00 [facility] prehensive Internal Medicine; [facility] Work Phone: Comment on above: PATIENT WAS FASTINGP ERFORMED BY: LabCo Pklqzx1991 [facility] [id number] Information: [id number] GFR/1.73 sq M.predicted among blacks CKD-EPI (S/P/Bld) [Vol rate/Area] 117 mL/min/1.73 Normal [facility]; [facility] Work Phone: Comment on above: PATIENT WAS FASTINGP ERFORMED BY: [facility]6370 [facility] [id number] Information: [id number] GFR/1.73 sq M.predicted among non-blacks CKD-EPI (S/P/Bld) [Vol rate/Area] 102 mL/min/1.73 Normal [facility]; [facility] Work Phone: Comment on above: PATIENT WAS FASTINGP ERFORMED BY: LabCox SouthTllaik6012 [facility] [id number] Information: [id number] Globulin (S) [Mass/Vol] 2.6 g/dL Normal 1.5-4.5 [facility]; [facility] Work Phone: Comment on above: PATIENT WAS FASTINGP ERFORMED BY: [facility] Lxyqyw1889 [facility] [id number] Information: [id number] Glucose [Mass/Vol] 89 mg/dL Normal 65-99 [facility]; [facility] Work Phone: Comment on above: PATIENT WAS FASTINGP ERFORMED BY: LabCo Zcfcel2908 [facility] [id number] Information: [id number] Potassium [Moles/Vol] 4.2 mmol/L Normal 3.5-5.2 [facility]; [facility] Work Phone: Comment on above: PATIENT WAS FASTINGP ERFORMED BY: AMIRA ClaudineSaint [facility]ius Hospital Foszux5019 [facility] [id number] Information: [id number] Protein [Mass/Vol] 6.8 g/dL Normal 6.0-8.5 [facility]; [facility] Work Phone: Comment on above: PATIENT WAS FASTINGP ERFORMED BY: [place] [address] [facility] [id number] Information: [id number] Sodium [Moles/Vol] 138 mmol/L Normal 134-144 [facility]; [facility] Work Phone: Comment on above: PATIENT WAS FASTINGP ERFORMED BY: AMRIA [place] 10[address]70 [facility] [id number] Information: [id number] Urea nitrogen [Mass/Vol] 12 mg/dL Normal 6-24 [facility]; [facility] Work Phone: Comment on above: PATIENT WAS FASTINGP ERFORMED BY: AMIRA [place] [address]70 [facility] [id number] Information: [id number] Urea nitrogen/Creatinine [Mass ratio] 16 mg/mg Normal 9-23 [facility]; [facility] Work Phone: Comment on above: PATIENT WAS FASTINGP ERFORMED BY: [facility]6370 [facility] [id number] Information: [id number] T3, FREE (TRIDOTHYRONINE) ([id number] [id number])Ordered By: Bag Press Operator on 03-31-2012 Free T3 [Mass/Vol] 2.3 pg/mL Normal 2.0-4.4 [facility]; [facility] Work Phone: Comment on above: PATIENT WAS FASTINGP ERFORMED BY: [facility] [id number] T4, FREE (THYROXINE) ([id number]) Ordered By: Bag Press Operator on 03-31-2012 Free T4 [Mass/Vol] 0.81 ng/dL Abnormal 0.82-1.77 [facility] Internal [facility]; [facility] Work Phone: Comment on above: PATIENT WAS FASTINGP ERFORMED BY: [facility] [id number] TSH ([id number])Ordered By: Solxlawrence m Alternative Financing Specialist on 03-31-2012 TSH Qn 3.840 {uIU/mL} Normal 0.450-4.50 0 [facility]; [facility] Work Phone: Comment on above: abnormal tsh in past ; PATIENT WAS FASTINGPERFORMED BY: [facility] [id number] Vital Signs Date Time Vital Sign Value Performing Clinician Facility 11-19-2024 21:14-0400 Body temperature 98.2 [degF] Dr. Shraddha Holley DO Work Phone: [facility] 11-19-2024 21:14-0400 Diastolic blood pressure 90 mm[Hg] Dr. Shraddha Holley DO Work Phone: [facility] 11-19-2024 21:14-0400 Heart rate 71 /min Dr. Shraddha Holley DO Work Phone: [facility] 11-19-2024 21:14-0400 Respiratory rate 18 /min Dr. Shraddha Holley DO Work Phone: [facility] 11-19-2024 21:14-0400 SaO2% (BldA) [Mass fraction] 97 % Dr. Shraddha Holley DO Work Phone: [facility] 11-19-2024 21:14-0400 Systolic blood pressure 132 mm[Hg] Dr. Shraddha Holley DO Work Phone: [facility] 11-19-2024 17:20-0400 Body height 165.[address] Shraddha Holley DO Work Phone: [facility] 11-19-2024 17:20-0400 Body mass index (BMI) [Ratio] 38 kg/m2 Dr. Shraddha Holley DO Work Phone: [facility] 11-19-2024 17:20-0400 Body weight 103.[address] Shraddha Holley DO Work Phone: [facility] 11-16-2024 12:45-0400 Body mass index (BMI) [Ratio] 37.9 kg/m2 Dr. Shraddha Holley DO Work Phone: [facility] 11-16-2024 12:45-0400 Body temperature 98.3 [degF] Dr. Shraddha Holley DO Work Phone: [facility] 11-16-2024 12:45-0400 Body weight 103.[address] Shraddha Holley DO Work Phone: [facility] 11-16-2024 12:45-0400 Diastolic blood pressure 98 mm[Hg] Dr. Shraddha Holley DO Work Phone: [facility] 11-16-2024 12:45-0400 Heart rate 94 /min Dr. Shraddha Holley DO Work Phone: [facility] 11-16-2024 12:45-0400 SaO2% (BldA) [Mass fraction] 98 % Dr. Shraddha Holley DO Work Phone: [facility] 11-16-2024 12:45-0400 Systolic blood pressure 152 mm[Hg] Dr. Shraddha Holley DO Work Phone: [facility] 06-25-2023 08:01-0400 Body mass index (BMI) [Ratio] 37.18 kg/m2 Ngozi COSBYC Work Phone: [facility] 06-25-2023 08:01-0400 Body weight 99.79 kg Ngozi Llanes PA-C Work Phone: [facility] 06-25-2023 08:01-0400 Diastolic blood pressure 92 mm[Hg] Ngozi Moriah PA-C Work Phone: [facility] 06-25-2023 08:01-0400 Heart rate 81 /min Ngozi Llanes PA-C Work Phone: [facility] 06-25-2023 08:01-0400 Systolic blood pressure 138 mm[Hg] Ngozi Llanes PA-C Work Phone: [facility] 04-20-2023 11:51-0500 Body height 165.1 cm GUN FITTER-C Kirstin Arcenio Work Phone: [facility] 04-20-2023 11:51-0500 Body mass index (BMI) [Ratio] 36.4 kg/m2 GUN FITTER-C Kirstin Arcenio Work Phone: [facility] 04-20-2023 11:51-0500 Body temperature 98.9 [degF] GUN FITTER-C Kirstin Arcenio Work Phone: [facility] 04-20-2023 11:51-0500 Body weight 99.45 kg GUN FITTER-C Kirstin Arcenio Work Phone: [facility] 04-20-2023 11:51-0500 Diastolic blood pressure 84 mm[Hg] GUN FITTER-C Kirstin Arcenio Work Phone: [facility] 04-20-2023 11:51-0500 Heart rate 82 /min GUN FITTER-C Kirstin Arcenio Work Phone: [facility] 04-20-2023 11:51-0500 Respiratory rate 15 /min GUN FITTER-C Kirstin Arcenio Work Phone: [facility] 04-20-2023 11:51-0500 SaO2% (BldA) [Mass fraction] 97 % GUN FITTER-C Kirstin Arcenio Work Phone: [facility] 04-20-2023 11:51-0500 Systolic blood pressure 142 mm[Hg] GUN FITTER-C Kirstin Arcenio Work Phone: [facility] 09-28-2022 08:28-0400 Body height 165.1 cm Ashtyn Slarb [employer] C[employer] [facility]; [facility] Work Phone: 09-28-2022 08:28-0400 Body mass index (BMI) [Ratio] 35.95 kg/m2 Ashtyn Slarb [employer] [facility]; [facility] Work Phone: 09-28-2022 08:28-0400 Body surface area Derived from formula 2.04 m2 Ashtyn Slarb [employer] [facility]; [facility] Work Phone: 09-28-2022 08:28-0400 Body temperature 97.6 [degF] Ashtyn Slarb [employer] [facility]; [facility] Work Phone: Comment on above: Method: Temporal 09-28-2022 08:28-0400 Body weight 98.01 kg Ashtyn Slarb [employer] [facility]; [facility] Work Phone: 09-28-2022 08:28-0400 Diastolic blood pressure 86 mm[Hg] Ashtyn Slarb [employer] [facility]; [facility] Work Phone: Comment on above: Patient Position: Sitting; Cuff Location : Left Arm; Cuff Size: Standard 09-28-2022 08:28-0400 Heart rate 71 /min Ashtyn Slarb [employer] [facility]; [facility] Work Phone: Comment on above: Pattern: Regular 09-28-2022 08:28-0400 Respiratory rate 16 /min Ashtyn Slarb [employer] C[employer] [facility]; [facility] Work Phone: Comment on above: Pattern: Unlabored 09-28-2022 08:28-0400 SaO2% (BldA) [Mass fraction] 97 % Ashtyn Slarb [employer] C[employer] [facility]; [facility] Work Phone: Comment on above: Room air 09-28-2022 08:28-0400 Systolic blood pressure 144 mm[Hg] Ashtyn Slarb [employer] C[employer] [facility]; [facility] Work Phone: Comment on above: Patient Position: Sitting; Cuff Location : Left Arm; Cuff Size: Standard 08-10-2022 09:48-0400 Body height 165.1 cm Ashtyn Slarb [employer] C[employer] [facility]; [facility] Work Phone: 08-10-2022 09:48-0400 Body mass index (BMI) [Ratio] 35.79 kg/m2 Ashtyn Slarb [employer] C[employer] [facility]; [facility] Work Phone: 08-10-2022 09:48-0400 Body surface area Derived from formula 2.04 m2 Ashtyn Slarb [employer] CSR [facility]; [facility] Work Phone: 08-10-2022 09:48-0400 Body temperature 97.8 [degF] Ashtyn Slarb [employer] C[employer] [facility]; [facility] Work Phone: Comment on above: Method: Temporal 08-10-2022 09:48-0400 Body weight 97.55 kg Ashtyn Slarb [employer] C[employer] [facility]; [facility] Work Phone: 08-10-2022 09:48-0400 Diastolic blood pressure 98 mm[Hg] Ashtyn Slarb [employer] C[employer] [facility]; [facility] Work Phone: Comment on above: Patient Position: Sitting; Cuff Location : Left Arm; Cuff Size: Standard 08-10-2022 09:48-0400 Heart rate 96 /min Ashtyn Slarb [employer] C[employer] [facility]; [facility] Work Phone: Comment on above: Pattern: Regular 08-10-2022 09:48-0400 Respiratory rate 17 /min Ashtyn Slarb [employer] C[employer] [facility]; [facility] Work Phone: Comment on above: Pattern: Unlabored 08-10-2022 09:48-0400 SaO2% (BldA) [Mass fraction] 99 % Ashtyn Slarb [employer] C[employer] [facility]; [facility] Work Phone: Comment on above: Room air 08-10-2022 09:48-0400 Systolic blood pressure 158 mm[Hg] Ashtyn Slarb ON [employer] CSR [facility]; [facility] Work Phone: Comment on above: Patient Position: Sitting; Cuff Location : Left Arm; Cuff Size: Standard 06-29-2022 10:35-0400 Body height 165.1 cm Ashtyn Slarb [employer] CSR [facility]; [facility] Work Phone: 06-29-2022 10:35-0400 Body mass index (BMI) [Ratio] 35.78 kg/m2 Ashtyn Slarb [employer] CSR [facility]; [facility] Work Phone: 06-29-2022 10:35-0400 Body surface area Derived from formula 2.04 m2 Ashtyn Slarb ON [employer] CSR [facility]; [facility] Work Phone: 06-29-2022 10:35-0400 Body temperature 98.7 [degF] Ashtyn Slarb [employer] CSR [facility]; [facility] Work Phone: Comment on above: Method: Temporal 06-29-2022 10:35-0400 Body weight 97.52 kg Ashtyn Slarb [employer] C[employer] [facility]; [facility] Work Phone: 06-29-2022 10:35-0400 Diastolic blood pressure 90 mm[Hg] Ashtyn Slarb [employer] C[employer] [facility]; [facility] Work Phone: Comment on above: Patient Position: Sitting; Cuff Location : Left Arm; Cuff Size: Standard 06-29-2022 10:35-0400 Heart rate 64 /min Ashtyn Slarb [employer] CSR [facility]; [facility] Work Phone: Comment on above: Pattern: Regular 06-29-2022 10:35-0400 Respiratory rate 16 /min Ashtyn Slarb [employer] C[employer] [facility]; [facility] Work Phone: Comment on above: Pattern: Unlabored 06-29-2022 10:35-0400 SaO2% (BldA) [Mass fraction] 99 % Ashtyn Slarb [employer] C[employer] [facility]; [facility] Work Phone: Comment on above: Room air 06-29-2022 10:35-0400 Systolic blood pressure 142 mm[Hg] Ashtyn Slarb [employer] CSR [facility]; [facility] Work Phone: Comment on above: Patient Position: Sitting; Cuff Location : Left Arm; Cuff Size: Standard 05-11-2022 09:38-0400 Body height 165.1 cm Ashtyn Slarb ON [employer] CSR [facility]; [facility] Work Phone: 05-11-2022 09:38-0400 Body mass index (BMI) [Ratio] 35.11 kg/m2 Ashtyn Slarb [employer] C[employer] [facility]; [facility] Work Phone: 05-11-2022 09:38-0400 Body surface area Derived from formula 2.02 m2 Ashtyn Slarb [employer] CSR [facility]; [facility] Work Phone: 05-11-2022 09:38-0400 Body temperature 97.1 [degF] Ashtyn Slarb [employer] CSR [facility]; [facility] Work Phone: Comment on above: Method: Temporal 05-11-2022 09:38-0400 Body weight 95.71 kg Ashtyn Slarb [employer] C[employer] [facility]; [facility] Work Phone: 05-11-2022 09:38-0400 Diastolic blood pressure 88 mm[Hg] Ashtyn Slarb [employer] C[employer] [facility]; [facility] Work Phone: Comment on above: Patient Position: Sitting; Cuff Location : Left Arm; Cuff Size: Standard 05-11-2022 09:38-0400 Heart rate 88 /min Ashtyn Slarb [employer] CSR [facility]; [facility] Work Phone: Comment on above: Pattern: Regular 05-11-2022 09:38-0400 Respiratory rate 17 /min Ashtyn Slarb [employer] C[employer] [facility]; [facility] Work Phone: Comment on above: Pattern: Unlabored 05-11-2022 09:38-0400 SaO2% (BldA) [Mass fraction] 99 % Ashtyn Slarb [employer] C[employer] [facility]; [facility] Work Phone: Comment on above: Room air 05-11-2022 09:38-0400 Systolic blood pressure 144 mm[Hg] Ashtyn Jp [facility]; [facility] Work [...] Standard 10-06-2021 09:36-0400 Heart rate 88 /min Hwoard Sorensen LPN [facility]; [facility] [...] Standard 08-29-2021 13:55-0400 Body height 165.1 cm [facility]; [facility] Work Phone: 08-29-2021 13:55-0400 Body mass index (BMI) [Ratio] 34.86 kg/m2 [facility]; [facility] Work Phone: 08-29-2021 13:55-0400 Body surface area Derived from formula 2.02 m2 lester [facility]; [facility] Work Phone: 08-29-2021 13:55-0400 Body weight 95.03 kg Zackary [facility]; [facility] Work Phone: 08-29-2021 13:55-0400 Diastolic blood pressure 90 mm[Hg] [facility]; [facility] Work Phone: Comment on above: Patient Position: Sitting; Cuff Location : Left Arm; Cuff Size: Standard 08-29-2021 13:55-0400 Heart rate 76 /min [facility]; [facility] Work Phone: Comment on above: Pattern: Regular 08-29-2021 13:55-0400 Respiratory rate 16 /min [facility] Comprehensiv e Internal Medicine; [facility] Work Phone: Comment on above: Pattern: Unlabored 08-29-2021 13:55-0400 SaO2% (BldA) [Mass fraction] 98 % lester [facility]; [facility] Work Phone: Comment on above: Room air 08-29-2021 13:55-0400 Systolic blood pressure 142 mm[Hg] Zackary [facility]; [facility] Work Phone: Comment on above: Patient Position: Sitting; Cuff Location : Left Arm; Cuff Size: Standard 06-02-2021 10:13-0400 Body height 165.1 cm Howard Sorensen LPN [facility]; [facility] Work Phone: 06-02-2021 10:13-0400 Body mass index (BMI) [Ratio] 34.15 kg/m2 Howard Sorensen LPN [facility]; [facility] Work Phone: 06-02-2021 10:13-0400 Body surface area Derived from formula 2 m2 Howard Sorensen LPN [facility]; [facility] Work Phone: 06-02-2021 10:13-0400 Body temperature 98 [degF] Howard Sorensen LPN [...] 16:55-0400 Heart rate 73 /min Sandee Osborne [employer] CSR [facility]; [facility] Work Phone: Comment on above: Pattern: Regular 05-29-2021 16:55-0400 Respiratory rate 16 /min Sandeecalixto Osborne ON [employer] CSR [facility]; [facility] Work Phone: Comment on above: Pattern: Unlabored 05-29-2021 16:55-0400 SaO2% (BldA) [Mass fraction] 98 % Sandee Osborne [employer] CSR [facility]; [facility] Work Phone: Comment on above: Room air 05-29-2021 16:55-0400 Systolic blood pressure 138 mm[Hg] Sandee Osborne ON [employer] CSR [facility]; [facility] Work Phone: Comment on above: Patient Position: Sitting; Cuff Location : Left Arm; Cuff Size: Standard 03-06-2021 13:45-0500 Body height 165.1 cm Sandee Osborne ON [employer] CSR [facility]; [facility] Work Phone: Comment on above: virtual, none reported 03-06-2021 13:45-0500 Body mass index (BMI) [Ratio] 34.15 kg/m2 Sandeecalixto Osborne [employer] CSR [facility]; [facility] Work Phone: Comment on above: virtual, none reported 03-06-2021 13:45-0500 Body surface area Derived from formula 2 m2 Sandeecalixto Osborne ON [employer] CSR [facility]; [facility] Work Phone: Comment on above: virtual, none reported 03-06-2021 13:45-0500 Body weight 93.08 kg Sanedecalixto Osborne ON [employer] CSR [facility]; [facility] Work [...] 09:47-0500 Systolic blood pressure 132 mm[Hg] Radha Rousseau MA [facility]; [...] Internal Medicine Work Phone: 12-26-2020 09:02-0400 Body surface area Derived from formula 1.99 m2 Radha Rousseau MA [facility]; [facility] Work Phone: 12-26-2020 09:02-0400 Body temperature 96.6 [degF] Radha Rousseau MA [facility]; [facility] Work Phone: 12-26-2020 09:02-0400 Body weight 92.08 kg Radha Rousseau MA [...] Derived from formula 2.14 m2 Ashtyn Trammell [employer] CSR [facility]; [facility] Work Phone: 02-02-2015 14:49-0500 Body temperature 98.1 [degF] Ashtyn Trammell LPN [facility]; [facility] Work Phone: 02-02-2015 14:49-0500 Body weight 108.86 kg Ashtyn Trammell [employer] C[employer] [facility]; [facility] Work Phone: 02-02-2015 14:49-0500 Diastolic blood pressure 84 mm[Hg] Ashtyn Bossrb [employer] CSR [facility]; [facility] Work Phone: Comment on above: Patient Position: Sitting; Cuff Location : Left Arm; Cuff Size: Standard 02-02-2015 14:49-0500 Heart rate 110 /min Ashtyn Trammell [employer] CSR [facility]; [facility] Work Phone: Comment on above: Pattern: Regular 02-02-2015 14:49-0500 Respiratory rate 17 /min Ashtyn Trammell LPN [facility]; [facility] Work Phone: Comment on above: Pattern: Unlabored 02-02-2015 14:49-0500 SaO2% (BldA) [Mass fraction] 98 % Ashtyn Trammell [employer] CSR [facility]; [facility] Work Phone: Comment on above: Room air 02-02-2015 14:49-0500 Systolic blood pressure 124 mm[Hg] Ashtyn Trammell ON [employer] CSR [facility]; [facility] Work Phone: Comment on above: Patient Position: Sitting; Cuff Location : Left Arm; Cuff Size: Standard 11-15-2014 11:-0400 Body height 165.1 cm PETE Del Valle LPN [facility]; [facility] Work Phone: 11-15-2014 11:21-0400 Body mass index (BMI) [Ratio] 39.27 kg/m2 PETE Del Valle LPN [facility]; [facility] Work Phone: 11-15-2014 11:21-0400 Body surface area Derived from formula 2.12 m2 PETE Del Valle LPN [facility]; [facility] Work Phone: 11-15-2014 11:21-0400 Body temperature 98.1 [degF] PETE Del Valle COLE [facility]; [facility] Work Phone: Comment on above: Method: Temporal 11-15-2014 11:21040 Body weight 107.05 kg PETEBORIS Del Valle LPN [facility]; [facility] Work Phone: 11-15-2014 11:21-0400 Diastolic blood pressure 84 mm[Hg] PETE Eligio GALVAN [facility]; [...] SaO2% (BldA) [Mass fraction] 99 % PETE Eligio GALVAN [facility]; [facility] Work Phone: Comment on above: Room air 11-15-2014 11:21-0400 Systolic blood pressure 124 mm[Hg] PETE Del [...] 09-03-2014 12:07-0400 Body height 165.1 cm Shraddha Carpenteron DO Work Phone: [facility]; [facility] [...] Left Arm; Cuff Size: Large 09-03-2014 12:07-0400 Heart rate 85 /min Shraddha Holley DO [...] mass index (BMI) [Ratio] 38.61 kg/m2 PETE Eligio GALVAN [facility]; [facility] [...] 08-16-2014 11:17-0400 Body weight 105.24 kg PETE Eligio GALVAN [facility]; [facility] Work Phone: 08-16-2014 11:17-0400 Diastolic blood pressure 80 mm[Hg] PETE Del Valle COLE [facility]; [facility] Work Phone: Comment on above: Patient Position: Sitting; Cuff Location : Left Arm; Cuff Size: Large 08-16-2014 11:17-0400 Heart rate 68 /min PETE Del Valle COLE [facility]; [facility] Work Phone: Comment on above: Pattern: Regular 08-16-2014 11:17-0400 Respiratory rate 18 /min PETE Del Valle COLE [facility]; [facility] Work Phone: Comment on above: Pattern: Unlabored 08-16-2014 11:17-0400 SaO2% (BldA) [Mass fraction] 97 % PETE Eligio GALVAN [facility]; [facility] Work Phone: Comment on above: Room air 08-16-2014 11:17-0400 Systolic blood pressure 124 mm[Hg] PETE Del [...] blood pressure 72 mm[Hg] PETE Del Valle COLE [facility] [...] [Mass fraction] 98 % PETE Del Valle COLE [facility]; [facility] Work Phone: Comment on above: Room air 05-17-2014 10:48-0400 Systolic blood pressure 118 mm[Hg] PETE Del Valle COLE [facility]; [facility] Work Phone: Comment on above: Patient Position: Sitting; Cuff Location : Left Arm; Cuff Size: Large 04-20-2014 11:13-0500 Body height 165.1 cm Cari Leoaddi [facility]; [facility] Work Phone: 04-20-2014 11:13-0500 Body mass index (BMI) [Ratio] 37.11 kg/m2 Cari Leoaddi [facility] Work Phone: 04-20-2014 11:13-0500 Body surface area Derived from formula 2.07 m2 Cari Ochoa [facility]; [facility] Work Phone: 04-20-2014 11:13-0500 Body temperature 98.8 [degF] Cari Ochoa [facility]; [facility] Work Phone: Comment on above: Method: Oral 04-20-2014 11:13-0500 Body weight 101.15 kg Cari Ochoa CMA [facility]; [facility] Work Phone: 04-20-2014 11:13-0500 Diastolic blood pressure 70 mm[Hg] Cari Ochoa [facility] Work Phone: Comment on above: Patient Position: Sitting; Cuff Location : Left Arm; Cuff Size: Standard 04-20-2014 11:13-0500 Heart rate 81 /min Cari Ochoa [facility]; [facility] Work Phone: Comment on above: Pattern: Regular 04-20-2014 11:13-0500 Respiratory rate 16 /min Cari Baileyaddi [facility]; [facility] Work Phone: Comment on above: Pattern: Unlabored 04-20-2014 11:13-0500 SaO2% (BldA) [Mass fraction] 98 % Cari Ochoa [facility]; [facility] Work Phone: Comment on above: Room air 04-20-2014 11:13-0500 Systolic blood pressure 115 mm[Hg] Cari Ochoa [facility] Work Phone: Comment on above: Patient Position: Sitting; Cuff Location : Left Arm; Cuff Size: Standard 10-06-2013 09:23-0400 Body height 165.1 cm Hetal Anderson RN [facility]; [facility] Work Phone: 10-06-2013 09:23-0400 Body mass index (BMI) [Ratio] 37.11 kg/m2 Hetal Maynard [facility]; [facility] Work Phone: 10-06-2013 09:23-0400 Body surface area Derived from formula 2.07 [...] SaO2% (BldA) [Mass fraction] 99 % Anca Villatoro CNP Work Phone: [facility]; [facility] Work Phone: Comment on above: Room air 04-17-2013 13:41-0500 Systolic blood pressure 134 mm[Hg] Anca Villatoro CNP Work Phone: [facility] [...] blood pressure 122 mm[Hg] PETE Del Valle LPN [facility]; [facility] Work Phone: Comment on above: Patient Position: Sitting; Cuff Location : Left Arm; Cuff Size: Large 02-27-2013 07:11-0500 Body height 165.1 cm PETE Del Valle ON LINE CSR [facility]; [facility] Work [...] Body weight 99.34 kg PETE Del Valle ON LINE CSR [facility]; [facility] Work Phone: 02-27-2013 07:11-0500 Diastolic blood pressure 80 mm[Hg] PETE Del Valle ON LINE CSR [facility]; [facility] Work [...] blood pressure 120 mm[Hg] PETE Del Valle COLE [facility]; [facility] Work Phone: Comment on above: Patient Position: Sitting; Cuff Location : Left Arm; Cuff Size: Standard 01-26-2013 08:23-0500 Body height 165.1 cm PETE Eligio GALVAN [facility]; [facility] Work Phone: 01-26-2013 08:23-0500 Body mass index (BMI) [Ratio] 36.11 kg/m2 PETE Eligio GALVAN [facility]; [facility] Work Phone: 01-26-2013 08:23-0500 Body surface area Derived from formula 2.05 m2 PETE Del Valle LPN [facility]; [facility] Work Phone: 01-26-2013 08:23-0500 Body temperature 97.8 [degF] PETE Del Valle LPN [facility]; [facility] Work Phone: Comment on above: Method: Oral 01-26-2013 08:23-0500 Body weight 98.43 kg PETEBORIS Del Valle LPN [facility]; [facility] Work Phone: 01-26-2013 08:23-0500 Diastolic blood pressure 80 mm[Hg] PETE Del Valle LPN [facility]; [facility] Work Phone: Comment on above: Patient Position: Sitting; Cuff Location : Left Arm; Cuff Size: Large 01-26-2013 08:23-0500 Heart rate 74 /min PETEBORIS Del Valle LPN [facility]; [facility] Work Phone: Comment on above: Pattern: Regular 01-26-2013 08:23-0500 Respiratory rate 20 /min PETE Del Valle LPN [facility]; [facility] Work Phone: Comment on above: Pattern: Unlabored 01-26-2013 08:23-0500 Systolic blood pressure 122 mm[Hg] PETE Del Valle LPN [facility]; [facility] Work Phone: Comment on above: Patient Position: Sitting; Cuff Location : Left Arm; Cuff Size: Large 10-24-2012 09:45-0400 Body height 165.1 cm PETEBORIS Del Valle LPN [facility]; [facility] Work Phone: 10-24-2012 09:45-0400 Body mass index (BMI) [Ratio] 35.78 kg/m2 PETE Del Valle COLE [facility]; [facility] Work Phone: 10-24-2012 09:45-0400 Body surface area Derived from formula 2.04 m2 PETE Del Valle LPN [facility]; [facility] Work Phone: 10-24-2012 09:45-0400 Body temperature 97.6 [degF] PETE Eligio COLE [facility]; [facility] Work Phone: Comment on above: Method: Oral 10-24-2012 09:45-0400 Body weight 97.52 kg PETEBORIS Del Valle LPN [facility]; [facility] Work Phone: 10-24-2012 09:45-0400 Diastolic blood pressure 80 mm[Hg] PETE Del Valle LPN [facility]; [facility] Work Phone: Comment on above: Patient Position: Sitting; Cuff Location : Left Arm; Cuff Size: Standard 10-24-2012 09:45-0400 Heart rate 90 /min PETEBORIS Del Valle LPN [facility]; [...] Standard 09-12-2012 09:30-0400 Body height 165.1 cm PETE Del Valle LPN [facility]; [facility] Work Phone: 09-12-2012 09:30-0400 Body mass index (BMI) [Ratio] 36.94 kg/m2 PETE Del Valle LPN [facility]; [facility] Work Phone: 09-12-2012 09:30-0400 Body surface area Derived from formula 2.07 m2 PETE Del Valle LPN [facility]; [facility] Work Phone: 09-12-2012 09:30-0400 Body temperature 98.9 [degF] PETE Del Valle COLE [facility]; [facility] Work Phone: Comment on above: Method: Oral 09-12-2012 09:30-0400 Body weight 100.7 kg PETEBORIS Del Valle LPN [facility]; [facility] Work Phone: 09-12-2012 09:30-0400 Diastolic blood pressure 80 mm[Hg] PETE Del Valle COLE [facility]; [facility] Work Phone: Comment on above: Patient Position: Sitting; Cuff Location : Left Arm; Cuff Size: Large 09-12-2012 09:30-0400 Heart rate 76 /min PETE Eligio GALVAN [facility]; [facility] Work Phone: Comment on above: Pattern: Regular 09-12-2012 09:30-0400 Respiratory rate 18 /min PETEBORIS Del Valle COLE [facility]; [facility] Work Phone: Comment on above: Pattern: Unlabored 09-12-2012 09:30-0400 Systolic blood pressure 130 mm[Hg] PETE Del Valle COLE [facility] [...] 09:45-0400 Diastolic blood pressure 80 mm[Hg] PETE Eligio GALVAN [facility]; [facility] Work Phone: Comment on above: Patient Position: Sitting; Cuff Location : Left Arm; Cuff Size: Standard 06-13-2012 09:45-0400 Heart rate 76 /min PETE Eligio GALVAN [facility]; [...] Temporal 04-14-2012 10:07-0500 Body weight 95.71 kg Hteal Maynard [facility]; [facility] Work [...] mass index (BMI) [Ratio] 35.78 kg/m2 Hetal Manyard [facility]; [facility] Work Phone: [...] 10:49-0500 Diastolic blood pressure 78 mm[Hg] Hetal Anderson RN [facility]; [...] Date Encounter Type Care Provider Facility Start: 12-05-2024 End: 12-05-2024 ambulatory Shraddha Holley Facility:[facility] Start: 12-03-2024 End: 12-03-2024 ambulatory Shraddha Holley Facility:[facility] Start: 11-19-2024 End: 11-19-2024 Emergency department patient visit Dr. Lorenzo King MD -Emergency Department Work Phone: Start: 11-16-2024 End: 11-16-2024 Patient encounter procedure Isael Brown PA [facility] Work Phone: Start: 11-16-2024 End: 11-16-[address] Shraddha Holley DO Work Phone: [facility] Start: 01-30-2024 End: 01-30-2024 ambulatory Kirstin Rg Facility:[facility] Start: 01-25-2024 End: 01-25-2024 Emergency department patient visit [facility] Start: 12-27-2023 End: 12-27-2023 Emergency department patient visit LUCIE SADLER [facility] Start: 12-14-2023 End: 12-14-2023 Emergency department patient visit COLE PUGA [facility] Start: 06-25-2023 End: 06-25-2023 ambulatory NGOZI LLANES [facility] Start: 06-25-2023 End: 06-25-2023 Office outpatient new 45 minutes Ngozi Llanes PAGayatriC Work Phone: [facility] Comment on above: Cervical spondylosis (Primary Dx); Cervical pain; Myalgia Start: 05-27-2023 End: 05-27-2023 ambulatory GUN FITTER-C Kirstin Rg Work Phone: [facility] Work Phone: Start: 05-27-2023 End: 05-27-2023 Patient encounter procedure GUN FITTER-Barbara Rg Work Phone: [facility] Work Phone: Start: 04-20-2023 End: 04-20-2023 Patient encounter procedure GUN FITTERAbigail Rg Work Phone: [facility] Work Phone: Start: 09-28-2022 End: 10-08-2022 Office outpatient visit 25 minutes Shraddha Leydi DO Work Phone: [facility] Start: [...] Office outpatient visit 25 minutes Kirstin Rg FISH PEDDLER Work Phone: [facility] Start: 10-06-2021 Review Kirstin Rg CNP Work Phone: [facility] Start: 09-01-2021 End: 09-11-2021 Office outpatient visit 5 minutes Kirstin Rg FISH PEDDLER Work Phone: [facility] Start: 08-31-2021 End: 08-31-2021 Lab Order Kirstin Rg CNP Work Phone: [facility] Start: 08-29-2021 End: 08-29-2021 Office outpatient visit 15 minutes Kirstin Rg FISH PEDDLER Work Phone: [facility] Start: 06-02-2021 End: 06-02-2021 Office outpatient visit 10 minutes Anca Sanchezesa Work Phone: [facility] Start: 05-29-2021 End: 05-29-2021 Office outpatient visit 10 minutes Anca Lauraesa Work Phone: [facility] Start: 03-06-2021 End: 03-06-2021 Office outpatient visit 15 minutes Anca Lauraesa FISH PEDDLER Work Phone: [facility] Start: 02-20-2021 End: 02-20-2021 Office outpatient visit 25 minutes Anca Ciesa FISH PEDDLER Work Phone: [facility] Start: 01-06-2021 End: 01-06-2021 Office outpatient visit 25 minutes Anca Ciesa FISH PEDDLER Work Phone: [facility] Start: 12-26-2020 End: 12-26-2020 Office outpatient new 45 minutes Anca Lauraesa FISH PEDDLER Work Phone: [facility] Start: 02-02-2015 End: 02-02-2015 Office outpatient visit 15 minutes Anca Villatoro CNP Work Phone: [facility] Start: 11-25-2014 End: 11-25-2014 Refill Request Anca Villatoro CNP Work Phone: [facility] Start: 11-15-2014 End: 11-15-2014 Office outpatient visit 10 minutes Anca Villatoro CNP Work Phone: [facility] Start: 09-08-2014 End: 09-08-2014 Office outpatient visit 25 minutes Anca Villatoro CNP Work Phone: [facility] Start: 09-03-2014 [...] Date Procedure Procedure Detail Performing Clinician Start: 11-19-2024 Radiologic exam ches t [address] Shraddha Holley DO Work Phone: Start: 11-19-[address] Shraddha Holley DO Work Phone: Start: 11-19-2024 SARS-CoV-2, Influenz a & RSV (PCR) Dr. Shraddha Holley DO Work Phone: Start: 05-27-2023 MRI of brain with contrast GUN FITTER-C Kirstin Rg Work Phone: Start: 05-27-2023 MRI of cervical spine N P-C Kirstin Rg Work Phone: Start: 07-12-2022 End: 07-12-2022 SCRN MAMM (CAD)W/SHEILA BILAT Procedure Note: See Note; NOTES: [facility] Imaging Services [address] [place] [id number] SCRN MAMM (CAD)W/SHEILA BILAT MR#: [id number] Acct: [id number] Name: DIANA LEE Rep #: [id number] : 1970 F 52 From: Tdod hogue MD PCP: ANTONIETTA Beckham Status: [facility] Study: SCRN MAMM (CAD)W/SHEILA BILAT Date of Exam: 06/25 10/17 Exam# [id number] Ordering Dr: Kirstin Rg MAMMOGRAPHY - BILATERAL SCREENING REASON FOR EXAM: [...] delay biopsy of a clinically suspicious abnormality. 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: Signed Kirstin Rg [facility] Work Phone: Start: 02-20-2021 End: 02-20-2021 Chest PA and Lateral Comments: See Note; NOTES: [facility] Radiology [address] [place] [address] Chest PA and Lateral MR#: [id number] Acct: [id number] Name: DIANA LEE Rep #: [id number] : 1970 F 50 From: Kaushal Francois MD PCP: ANTONIETTA Gamez Status: DEP AMB Study: Chest PA and Lateral Date of Exam: 02/20/21 Exam# [id number] Ordering Dr: Anca Villatoro NP GUN FITTER-C STUDY: X-RAY CHEST REASON FOR EXAM: Female, [...] 11:53 EST , Service support , CC: GUN FITTERAbigail Villatoro Garbage Truck Dispatcher: Signed Anca Villatoro FISH PEDDLER Work Phone: Start: 11-22-2014 End: 11-22-2014 Kae Bailey Digital AND CAD Comments: See Note; NOTES: [facility] Imaging Services [address] [place] [id number] Breast Imaging Report MR#: [id number] Acct: [id number] Name: DIANA LEE Rep #: [id number] : 1970 F 44 From: Todd Conrad MD PCP: Mohinder Wetzel MD Status: REG CLI Study: Bilat Scrn Digital AND CAD Date of Exam: 11/22/14 Exam# [id number] Ordering Dr: Mohinder Wetzel MD MAMMOGRAPHY - [...] Todd Conrad MD at 8:56 EDT Tel [phone], Service support [phone], CC: Mohinder Wetzel MD Garbage Truck Dispatcher: Signed Mohinder Wetzel MD Work Phone: Start: 09-03-2014 End: 09-03-2014 Acute Abdomen Inc Chest Comments: See Note; NOTES: [facility] Imaging Services [address] [place] [address] Radiology Report MR#: [id number] Acct: [id number] Name: DIANA LEE Rep #: [id number] : 1970 F 44 From: Todd Conrad MD PCP: Mohinder Wetzel MD Status: REG CLI Study: Acute Abdomen Inc Chest Date of Exam: 09/03/14 Exam# [id number] Ordering Dr: Shraddha Holley DO STUDY: X-RAY [...] Todd Conrad MD at 14:27 EDT Tel [phone], Service support [phone], RAD/Acute Abdomen Inc Chest IMPRESSION: Moderate amount of fecal material is seen in the colon. Electronically Signed: Todd Conrad MD at 14:27 EDT Tel [phone], Service support [phone], CC: Mohinder Wetzel MD; Shraddha Holley DO Garbage Truck Dispatcher: Signed Shraddha Holley DO Work Phone: bariatric weight los s Dec 2018 Sandee Osborne ON LINE CSR bariatric weight los s Dec 2018 Howard Sorensen ON LINE CSR bariatric weight los s Dec 2018 Zackary Felder RETAIL SALESPERSON bariatric weight los s Dec 2018 Howard Sorensen ON LINE CSR bariatric weight los s Dec 2018 Kirstin Rg FISH PEDDLER Work Phone: bariatric weight los s Dec 2018 Ashtyn Slarb ON LINE CSR bariatric weight los s Dec 2018 Ashtyn Slarb ON LINE CSR bariatric weight los s Dec 2018 Ashtyn Slarb ON LINE CSR bladder exploratory surgery Sandee Osborne ON LINE CSR bladder exploratory surgery Howard Sorensen ON LINE CSR bladder exploratory surgery Zackary Felder RETAIL SALESPERSON bladder exploratory surgery Howard Sorensen ON LINE CSR bladder exploratory surgery Kirstin Rg FISH PEDDLER Work Phone: bladder exploratory surgery Ashtyn Slarb ON LINE CSR bladder exploratory surgery Ashtyn Slarb ON LINE CSR bladder exploratory surgery Ashtyn Slarb ON LINE CSR section Sandee Coffm an ON LINE CSR Comment on above: x2, no complications section Howard Bud s ON LINE CSR Comment on above: x2, no complications section Cornelialester titus RETAIL SALESPERSON Comment on above: x2, no complications section Howard Bud s ON LINE CSR Comment on above: x2, no complications section Kirstin aguilar FISH PEDDLER Work Phone: Comment on above: x2, no complications section Ashtyn Slar b ON LINE CSR Comment on above: x2, no complications section Ashtyn Slar b ON LINE CSR Comment on above: x2, no complications section Ashtyn Slar b ON LINE CSR Comment on above: x2, no complications History of total hysterectomy History of hysterectomy including cervix Kirstin Rg FISH PEDDLER Work Phone: Comment on above: still has ovaries History of total hysterectomy History of hysterectomy including cervix Kirstin Arcenio FISH PEDDLER Work Phone: History of total hysterectomy History of hysterectomy including cervix Kirstin Arcenio FISH PEDDLER Work Phone: Comment on above: still has ovaries History of total hysterectomy History of hysterectomy including cervix Ashtyn Slarb ON LINE CSR Comment on above: still has ovaries History of total hysterectomy History of hysterectomy including cervix Kirstin Arcenio FISH PEDDLER Work Phone: Comment on above: still has ovaries History of total hysterectomy History of hysterectomy including cervix Ashtyn Slarb ON LINE CSR Comment on above: still has ovaries Hysterectomy Sandee Dylon L PN Comment on above: COMPLETE Hysterectomy Howard Sorensen LP N Comment on above: COMPLETE Hysterectomy Johna Emerita RETAIL SALESPERSON Comment on above: COMPLETE Hysterectomy Howard Edu LP N Comment on above: COMPLETE Hysterectomy Kirstin Arcenio FISH PEDDLER Work Phone: Comment on above: COMPLETE Hysterectomy Ashtyn Slarb LP N Comment on above: COMPLETE Hysterectomy Ashtyn Slarb LP N Comment on above: COMPLETE Hysterectomy Ashtyn Slarb LP N Comment on above: COMPLETE laproscopy Sandee Dylon L PN laproscopy Howard Sorensen LP N laproscopy Johna Emerita RETAIL SALESPERSON laproscopy Howard Sorensen LP N laproscopy Kirstinjean Rg FISH PEDDLER Work Phone: laproscopy Ashtyn Slarb LP N laproscopy Ashtyn Slarb LP N laproscopy Ashtyn Slarb LP N Screening colonoscopy Sandee Dylon ON LINE CSR Comment on above: Megan Knapp JPHaround 2006 Screening colonoscopy Howard Edu ON LINE CSR Comment on above: Megan Knapp JPHaround 2006 Screening colonoscopy Kayela Tazewell RETAIL SALESPERSON Comment on above: Megan Knapp JPHaround 2006 Screening colonoscopy Howard Edu ON LINE CSR Comment on above: Megan Knapp JPHaround 2005 Screening colonoscopy Corine Rg FISH PEDDLER Work Phone: Comment on above: Megan Knapp JPHaround 2006 Screening colonoscopy Ashtyn Slarb ON LINE CSR Comment on above: Megan Knapp JPHaround 2006 Screening colonoscopy Ashtyn Slarb ON LINE CSR Comment on above: Megan Knapp JPHaround 2006 Screening colonoscopy Ashtyn Slarb ON LINE CSR Comment on above: Megan Knapp JPHaround 2006 Screening mammography Sandee Dylon ON LINE CSR Comment on above: has never had one Screening mammography Howard Edu ON LINE CSR Comment on above: has never had one Screening mammography Kayela Tazewell RETAIL SALESPERSON Comment on above: has never had one Screening mammography Howard Edu ON LINE CSR Comment on above: has never had one Screening mammography Corine Rg FISH PEDDLER Work Phone: Comment on above: has never had one Screening mammography Ashtyn Slarb ON LINE CSR Comment on above: has never had one Screening mammography Ashtyn Slarb ON LINE CSR Comment on above: has never had one Screening mammography Ashtyn Slarb ON LINE CSR Comment on above: has never had one Plan of Treatment Date Care Activity Detail Author Start: 11-19-2024 [facility] Start: 11-19-2024 Radiologic exam chest 2 views Chest PA and Lateral [facility] Start: 11-19-2024 End: 11-19-2024 Emergency department patient visit Departed Emergency -Emergency Department Work Phone: Start: 11-19-2024 SARS-CoV-2, Influenza & RSV (PCR) SARS-CoV-2, Influenza & RSV (PCR) [facility] Start: 10-27-2023 Influenza vaccination Influenza Vaccine (Season Ended) [facility] Start: 06-25-2023 End: 06-24-2024 Medial Nerve Branch Block Medial Nerve Branch Block Procedures Routine Cervical spondylosis Expected: 06/25/2023 (Approximate), Expires: 06/24/2024 [facility] Service Area Work Phone: Comment on above: Expected: 06/25/2023 (Approximate), Expi res: 06/24/2024 Start: 10-26-2022 COVID-19 Vaccine ( season) COVID-19 Vaccine ( season) [facility] Start: 10-08-2022 Provider Instructions for Treatment Reviewed Lab [facility]; [facility] Work Phone: Start: 09-28-2022 Lipid panel LIPID PANEL (39217) : do dec 2022 [facility]; [facility] Work Phone: Start: 09-28-2022 Procedure Education Eprescribed prescriptions (G8553) [facility]; [facility] Work Phone: Start: 09-28-2022 Provider Instructions for Treatment Follow up - transferring care to Dr. Holley (has been on wait list) [facility]; [facility] Work Phone: Start: 08-10-2022 Assay of ferritin FERRITIN (91344) [facility]; [facility] Work Phone: Start: 08-10-2022 Assay of free thyroxine THYROXINE FREE (32372) : do around 08/15 [facility]; [facility] Work Phone: Start: 08-10-2022 Assay of iron IRON & TOTAL IRON BINDING CAPACITY (07879) [facility]; [facility] Work Phone: Start: 08-10-2022 Assay of thyroid stimulating hormone tsh TSH (THYROID STIMULATING HORMONE) (55855) [facility]; [facility] Work Phone: Start: 08-10-2022 Assay of thyroxine binding globulin TBG (THYROXINE BINDING GLOB) (81029) [facility]; [facility] Work Phone: Start: 08-10-2022 Dehydroepiandrosterone-sulfat e DHEA-S (DEHYDROEPIANDROSTERO NE SULFATE) (66939) [facility]; [facility] Work [...] 25 hydroxy includes fractions if performed CALCIFEDIOL (87179) [facility]; [facility] Work Phone: Start: 05-17-2022 Assay of free thyroxine THYROXINE FREE (06813) [facility]; [facility] Work Phone: Start: 05-17-2022 Assay of parathormone PARATHORMONE (72604) [facility]; [facility] Work Phone: Start: 05-17-2022 Assay of thyroid stimulating hormone tsh TSH (THYROID STIMULATING HORMONE) (85262) [facility]; [facility] Work Phone: Start: 05-17-2022 Blood count complete auto&auto difrntl wbc CBC, PLATELETS & AUT DIFF (27357) [facility]; [facility] Work Phone: Start: 05-17-2022 Comprehensive metabolic panel METABOLIC PANEL, COMPREHENSIVE (70049) [facility]; [facility] Work Phone: Start: 05-17-2022 Lipid panel LIPID PANEL (61169) [facility]; [facility] Work [...] Start: 10-06-2021 CBC, PLATELETS & MANUAL DIFF (63591) CBC, PLATELETS & MANUAL DIFF (59923) [facility]; [facility] Work Phone: Start: 10-06-2021 Comprehensive metabolic panel METABOLIC PANEL, COMPREHENSIVE (23145) [facility]; [facility] Work Phone: Start: 10-06-2021 25 hydroxy includes fractions if performed CALCIFEDIOL (37189) [facility]; [facility] Work Phone: Start: 10-06-2021 Lipid panel LIPID PANEL (33606) [facility]; [facility] Work Phone: Start: 10-06-2021 Assay of thyroid stimulating hormone tsh TSH (THYROID STIMULATING HORMONE) (80743) [facility]; [facility] Work Phone: Start: 08-31-2021 Culture bct isol&prsmptv id isolate ea urine URINE GERONIMO CULTURE-IDENTIFICATN (33062) [facility]; [facility] Work Phone: Start: 08-29-2021 Culture bacterial quanttative colony count urine URINE GERONIMO CULTURE (NIGEL COL COUNT) (64299) [facility]; [facility] Work [...] 3 months follow up in 3 months 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 [facility]; [facility] [...] protein high sensitivity C-REACT PROT HIGH SENS(hsCRP) (59293) [facility]; [facility] Work Phone: Start: 02-20-2021 Sedimentation rate rbc non-automated SED RATE ERYTHROCYTE (04237) [facility]; [facility] Work Phone: Start: 02-20-2021 Myoglobin MYOGLOBIN (45898) [facility]; [facility] Work Phone: Start: 02-20-2021 Creatine kinase mb fraction only CPK MB FRACTION (09309) [facility]; [facility] Work Phone: Start: 02-20-2021 Assay of troponin quantitative [facility]; [facility] Work Phone: Start: 01-06-2021 Procedure Education Eprescribed prescriptions (G8553) [facility]; [facility] Work Phone: Start: 01-06-2021 Provider Instructions for Treatment Follow up in 6 weeks [facility]; [facility] Work Phone: Start: 12-26-2020 Dehydroepiandrosterone DHEA (DEHYDROEPIANDROSTERO NE) (07632) [facility]; [facility] Work Phone: Start: 12-26-2020 Procedure Education Eprescribed prescriptions (G8553) [facility]; [facility] Work Phone: Start: 12-26-2020 Provider Instructions for Treatment Follow 10 days [facility]; [facility] Work Phone: Start: 02-22-2020 Zoster Vaccines (1 of 2) Zoster Vaccines (1 of 2) [facility] Start: 02-02-2015 Provider Instructions for Treatment [facility]; [facility] Work Phone: Start: 11-15-2014 Comprehensive metabolic panel METABOLIC PANEL, COMPREHENSIVE (03484) [facility]; [facility] Work Phone: Start: 11-15-2014 Lipid panel LIPID PANEL (16836) [facility]; [facility] Work Phone: Start: 11-15-2014 Assay of thyroid stimulating hormone tsh TSH (17364) [facility]; [facility] Work Phone: Start: 11-15-2014 25 hydroxy includes fractions if performed CALCIFIDIOL (08917) VIT D 25 [facility]; [facility] [...] Sedimentation rate rbc non-automated Sed Rate Erythrocyte (91543) [facility]; [facility] Work Phone: Start: 09-03-2014 Comprehensive metabolic panel Metabolic Panel, Comprehensive (60459) [facility]; [facility] Work Phone: Start: 09-03-2014 Blood count complete automated CBC (Auto) (54733) [facility]; [facility] Work Phone: Start: 09-03-2014 Assay of lipase LIPASE (55455) [facility]; [facility] Work Phone: Start: 09-03-2014 Assay of amylase AMYLASE (17199) [facility]; [facility] Work Phone: Start: 08-16-2014 Assay of thyroid stimulating hormone tsh TSH (06653) [facility]; [facility] Work Phone: Comment on above: in three months (approximately) Start: 08-16-2014 Comprehensive metabolic panel METABOLIC PANEL, COMPREHENSIVE (31492) [facility]; [facility] Work Phone: Comment on above: in three months (approximately) Start: 08-16-2014 Lipid panel LIPID PANEL (58374) [facility]; [facility] Work Phone: Comment on above: in three months (approximately) Start: 08-16-2014 25 hydroxy includes fractions if performed CALCIFIDIOL (33424) VIT D 25 [facility]; [facility] Work Phone: Comment on above: in three months (approximately) Start: 07-01-2014 Assay of thyroid stimulating hormone tsh TSH (57458) [facility]; [facility] Work Phone: Start: 07-01-2014 Assay of free thyroxine T4, FREE (THYROXINE) (54962) [facility]; [facility] Work Phone: Start: 07-01-2014 Assay of triiodothyronine t3 free T3, FREE (TRIDOTHYRONINE) (38959) [facility]; [facility] Work Phone: Start: 06-21-2014 Microsomal antibodies each Anti-TPO Antibody (90650) [facility]; [facility] Work Phone: Start: 06-21-2014 Assay of thyroid stimulating hormone tsh TSH (32839) [facility]; [facility] Work Phone: Start: 06-21-2014 Assay of free thyroxine T4, FREE (THYROXINE) (79319) [facility]; [facility] Work Phone: Start: 06-21-2014 Assay of triiodothyronine t3 free T3, FREE (TRIDOTHYRONINE) (88319) [facility]; [facility] Work Phone: Start: 05-17-2014 Patient Education Migraine Headache: Brief Version *: migraine headache [facility]; [facility] Work Phone: Start: 04-20-2014 Patient Education Blood Pressure: hypertension [facility]; [facility] Work Phone: Start: 04-20-2014 Procedure Education Eprescribed prescriptions (G8553) [facility]; [facility] Work Phone: Start: 04-20-2014 Lipid panel LIPID PANEL (03465) [facility]; [facility] Work Phone: Start: 10-06-2013 Procedure Education Eprescribed prescriptions (G8553) [facility]; [facility] Work Phone: Start: 08-10-2013 Assay of triiodothyronine t3 free T3, FREE (TRIDOTHYRONINE) (05216) [facility]; [facility] Work Phone: Start: 08-10-2013 Assay of free thyroxine T4, FREE (THYROXINE) (89199) [facility]; [facility] Work Phone: Start: 08-10-2013 Assay of thyroid stimulating hormone tsh TSH (THYROID STIMULATING HORMONE) (94710) [facility]; [facility] Work Phone: Start: 04-17-2013 Provider Instructions for Treatment Follow up in 1 week [facility]; [facility] Work Phone: Start: 03-19-2013 Hla typing a/b/c single antigen HLA-B27 ANTIGEN (16547) [facility]; [facility] Work [...] Screening for malignant neoplasm of breast Mammogram [facility] Start: 02-22-1992 DTaP/Tdap/Td Vaccines (1 - Tdap) DTaP/Tdap/Td Vaccines (1 - Tdap) [facility] Start: 1991 Screening for malignant neoplasm of cervix [facility] Start: 1989 Hepatitis B Vaccines (1 of 3 - 19+ 3-dose series) Hepatitis B Vaccines (1 of 3 - 19+ 3-dose series) [facility] Start: 02-22-1988 Diabetes mellitus screening Diabetes Screening [facility] Start: 02-22-1988 Hepatitis C screening Hepatitis C Screening [facility] Start: 1971 MMR Vaccines (1 of 1 - Standard series) MMR Vaccines (1 of 1 - Standard series) [facility] Start: 1970 HIV screening HIV Screening [facility] Start: 1970 Lipid panel Lipid Panel [facility] Start: 1970 Screening for malignant neoplasm of colon [facility] Start: 1970 Thyroid stimulating hormone measurement TSH Level [facility] Start: 1970 Yearly Adult Physical Yearly Adult Physical [facility] Patient Education ED Viral Syndr ome (Adult) [facility] Work Phone: [facility]; [facility] [...] Immunization Date Immunization Notes Care Provider [facility] 12-01-2020 influenza virus vaccine, unspecified formulation Ngozi Llanes PA-C Work Phone: [facility] Work Phone: Payers Date Payer Category Payer Self-pay [id number] 2004 Unknown 2004 Unknown [id number] 1970 Unknown [id number] 2.16.84 [id number] 1970 Unknown [id number] 2.16.8 [id number] 1970 Unknown [id number] 2.16.8 [id number] 1970 Unknown [id number] 2.16.8 [id number] 1970 Unknown [id number] 2.16.8 [id number] Unknown [id number] 2.16.8 [id number] Unknown [id number] 2.16.8 [id number] Unknown [id number] 2.16.8 [id number] Unknown [id number] 2.16.8 [id number] Unknown [id number] 2.16.8 [id number] Social History Date Type Detail Facility Start: 06-25-2023 Caffeine Use Caffeine Use [facility]; [facility] Work Phone: Comment on above: 4-5 a week coffee no exposure in home Current Work/Study Status: Current Work/Study Status: [facility]; [facility] Work Phone: 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 Tobacco use: Tobacco use: [facility]; [facility] Work Phone: Start: 04-20-2023 Tobacco smoking status NHIS Unknown if ever smoked [facility] Start: 1970 Sex Assigned At Female [facility] Start: 06-25-2023 End: 11-19-2024 Tobacco smoking status NHIS Never smoked tobacco [facility] Work Phone: Start: 06-25-2023 Tobacco use and exposure Smokeless tobacco non-user [facility] Work Phone: Start: 06-25-2023 Alcoholic beverage intake Lifetime non-drinker (finding) [facility] Work Phone: Start: 06-25-2023 Tobacco use panel [facility] Start: 1970 Sex assigned at Not on file [facility] Work Phone: NEGATED: Highlighted rowStart: NINF History of tobacco use Passive smoker [facility] Work Phone: Mental Status Date Assessment Result Facility 11-19-2024 Cognitive function Level Of Consciousness [facility] Work Phone: Clinical Notes 06-25-2023 to 11-19-2024 Note Date & Type Note Facility 11-19-2024 Discharge summary [facility] 11-19-2024 Radiology Diagnostic study note [facility] Imaging Services [address] [place] [address] Chest PA and Lateral MR#: [id number] Acct: [id number] Name: DIANA LEE Rep #: [id number] : 1970 F 54 From: Laron Charles MD PCP: Dr. Shraddha Holley DO Status: RE G ER Study:Chest PA and Lateral Date of Exam: 11/19/24 Exam# [id number] Ordering Dr: Alfonso Kign MD PROCEDURE: CHEST PA AND LATERAL 11/19/2024 REASON FOR EXAM: NONPRODUCTIVE COUGH, ILL X 3-WEEK TECHNIQUE: Procedure Code: RADCXR Modality: DX Procedure: CHEST PA AND LATERAL COMPARISON: 02/20/2021 FINDINGS: No appreciable airspace consolidation, pneumothorax or pleural effusion. Cardiac silhouette is normal in size. No vascular congestion. No significant osseous abnormality. RAD/Chest PA and Lateral IMPRESSION: No acute cardiopulmonary disease. Reading Location: [id number] CC: Dr. Shraddha Holley DO; Dr. 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 Shraddha Holley DO Status:RE G ER Location: ED HPI History of Present Illness Chief Complaint: General Illness Detail of Chief Complaint: Patient has been ill for 3 weeks complains of bodyaches Informant: patient and spouse/S.O. Onset/Context/Timing Onset: Weeks Context: Sudden Onset Timing: Continuous and Waxes and wanes Quality: Nonproductive cough, congestion initially, myalgias and arthralgias Current Severity: Mild Maximum Severity: Moderate Worsened by: Nothing Relieved by: Nothing Associated Symptoms Associated Symptoms: Flulike symptoms Narrative Narrative: Patient is a 54-year-old woman. She has history of hypertension, hypothyroidismand depression. She was seen earlier this year for tick bite. She was seen at urgent care November 16 for sinus congestion and prescribed Augmentin 875 mg tab 1 twice daily. She presents because of headache, congestion, nonproductive cough, myalgias and arthralgias. She states she has had no improvement since taking the Augmentin. She does complain of bilateral frontal headache. She denies photophobia. She denies ringing or ears decreased hearing. Denies drainage from ears. Denies chest pain, pressure, tightness or heaviness. She denies pleuritic chestpain. She denies abdominal pain, vomiting or diarrhea. She denies urologic symptoms. Prior similar symptoms: Yes Recent Illness/[facility]ospital[facility]: [facility] Medical History Depression History of gout HTN (hypertension) Hypothyroidism Back pain Home Medications ?Medication ?Instructions ?Recorded ?Last Taken ?Type xnxqknpfau-dvfrvrebxpblw-vmdhojuc 1 tab PO PRN PRN Jimenez/ Aches/Temp 02/25/13 Unknown History 50 mg-325 mg-40 mg tablet >=101 amlodipine 2.5 mg tablet mg PO 04/20/23 Unknown Histo ry cholecalciferol (vitamin D3) 125 125 mcg PO DAILY 03/29 06/18 Unknown History mcg (5,000 unit) capsule escitalopram oxalate 20 mg tablet mg PO 04/20/23 Unkno wn History estradiol 1 mg tablet mg PO 04/20/23 Unknown Histo ry lactobacillus combination no.9 4 4,000 mmu cells PO DA [place]ON 04/20/23 Unknown History billion cell capsule (Adult 50 Plus Probiotic) levothyroxine 25 mcg tablet mcg PO 04/20/23 Unknown Hi story lisinopril 40 mg tablet mg PO 04/20/23 Unknown Histo ry amoxicillin 875 mg-potassium 1 tab PO BID #20 tabs Unknown Rx clavulanate 125 mg tablet Allergy/AdvReac Type Severity Reaction Status Date / Time semaglutide Allergy Intermediate heart Verified 11/19/24 17:20 palpitations Family History Other Cancer Heart disease Surgical History History of hysterectomy History of bariatric surgery Social History Smoking Status: Never smoker alcohol intake: never substance use type: does not use ROS ROS ED Constitutional Constitutional ED: Denies chills, fever(s), subjective or sweats Eyes Eyes: Denies blurry vision or change in vision ENT ENT ED: Reports other Details: Congestion ; Denies ear pain, rhinorrhea or sore throat Cardiovascular Cardiovascular: Denies chest pain, orthopnea, palpitations or paroxysmal nocturnal dyspnea Respiratory/Chest Respiratory/Chest: Reports cough and dyspnea; Denies dyspnea on exertion, orthopnea, paroxysmal nocturnal dyspnea or sputum Gastrointestinal Gastrointestinal: Denies abdominal pain, diarrhea or vomiting Genitourinary Genitourinary ED: Denies dysuria, hematuria or urinary frequency Musculoskeletal Musculoskeletal: Denies arthralgias or myalgias Integumentary Denies abscess or rash Neurologic Neurologic: Denies headache(s) or paresthesias Psychiatric Psychiatric: Denies anxiety or depression Endocrine Endocrinology: Denies cold intolerance or heat intolerance Hematologic/Lymphatic Hematologic/Lymphatic: Reports systems reviewed and no addt'l complaints, exceptas documented EXAM Physical Exam Const Vital Signs: 11/19/24 17:20 11/19/24 19:19 Temperature 98.4 F Temperature Source Temporal Pulse Rate 89 71 Respiratory Rate 18 Blood Pressure 159/94 H 144/70 H Blood Pressure Mean 115 94 Pulse Ox 100 100 Oxygen Delivery Method Room Air Positive well nourished and well developed Constitutional Narrative: Patient appears ill but not toxic. General Appearance ED: well developed and NAD; Negative for cyanotic, diaphoretic or pallor HEENT Reports dry mucous membranes Mouth ED: Yes dry mucous membranes Mouth: dry mucous membranes Eyes PERRL and EOMs intact bilaterally General Eye ED: Negative for pale conjunctiva or scleral icterus Neck no lymphadenopathy, supple and no JVD Resp normal respiratory effort and clear to auscultation bilaterally Cardio regular rate, regular rhythm, S1 normal heart sound, S2 normal heart sound and no murmurs GI normal to inspection, nondistended, normoactive bowel sounds, non-tender, non-distended and no masses; Negative for hepatosplenomegaly Back/Spine no CVA tenderness Extremity normal to inspection General Extremety ED: Negative for edema or tenderness General Extremity: Negative for edema Neuro oriented x3, CN's II-XII intact bilaterally and no sensory deficits noted Sensorium / Orientation: alert Psych mental status grossly normal Skin no rashes or lesions noted, no wounds and skin turgor normal General Skin Exam: Negative for jaundice or pallor MDM MDM MDM Narrative Medical decision making narrative: Patient with flulike symptoms. She had symptoms 3 weeks. Since she has had symptoms 3 weeks we will get a chest x-ray since she has not had a x-ray with this illness. Because she has not improved in spite of antibiotics we will obtain blood work to assess white count differential, electrolyte function as well as rapid antigen for RSV and influenza. Note authored by SUZAN Field for urgent care visit November 16 was reviewed. History & Record Review Additional record(s) reviewed:: Prior outpatient record and Prior labs Lab Data Attestation: I reviewed the patient's lab results. Lab results narrative: CBC is normal. BMP is normal rapid antigen for COVID, RSV and influenza are negative. Labs: Laboratory Results - last 24 hr 11/19/24 18:18 WBC 9.0 RBC 5.22 Hgb 15.9 H Hct 46.7 MCV 89.5 MCH 30.5 MCHC 34.0 RDW Std Deviation 44.2 H RDW Coeff of Alejandro 13.4 Plt Count 361 MPV 9.5 Immature Gran % (Auto) 0.300 Neut % (Auto) 53.8 Lymph % (Auto) 37.1 Cochran % (Auto) 6.3 Eos % (Auto) 1.9 Baso % (Auto) 0.6 Absolute Neuts (auto) 4.9 Absolute Lymphs (auto) 3.34 Nucleated RBC % 0 Sodium 139 Potassium 4.4 Chloride 102 Carbon Dioxide 24.5 Anion Gap 13 BUN 9 Creatinine 0.74 Estim Creat Clear Calc 103.75 Est GFR (MDRD) Non-Af 96 BUN/Creatinine Ratio 12.6 Glucose 84 Calcium 9.3 Radiography Chest X-Ray - ED: 2 View, Read by ED Physician, Normal, Heart, Lungs, Mediastinum, Bony Structures and No Acute Disease Diagnostic Testing: Clinical Impression(s) from Imaging Studies Chest X-Ray 11/19/24 18:20 IMPRESSION: No acute cardiopulmonary disease. Reading Location: [facility] Treatment and Re-Evaluation :: Patient states she feels better after IV fluids. Will discharge to home. She also received IV ketorolac. Discharge Plan Triage Chief Complaint: General Illness ED Provider: Lorenzo King Dx/Rx/DC Orders Clinical Impression: Viral syndrome, Acute dehydration, HTN (hypertension), Hypothyroidism, Adult BMI 38.0-38.9 kg/sq m Instructions: ED Viral Syndrome (Adult) Prescriptions: No Action lisinopril 40 mg tablet PO Patient Comments: TAKE 1 TABLET BY MOUTH ONCE DAILY amlodipine 2.5 mg tablet PO Patient Comments: TAKE 1 TABLET BY MOUTH ONCE DAILY estradiol 1 mg tablet PO Patient Comments: TAKE 1 TABLET BY MOUTH ONCE DAILY escitalopram oxalate 20 mg tablet PO Patient Comments: TAKE 1 TABLET BY MOUTH ONCE DAILY cholecalciferol (vitamin D3) 125 mcg (5,000 unit) capsule 125 mcg PO DAILY Adult 50 Plus Probiotic 4 billion cell capsule 4,000 mmu cells PO DAILY Rx Instructions: administer with a meal levothyroxine 25 mcg tablet PO Patient Comments: TAKE 1 TABLET BY MOUTH ONCE DAILY amoxicillin-pot clavulanate 875-125 mg tablet 1 tab PO BID Qty: 20 0RF psqkhcvjgj-lxwotxxlceoba-pzdk 1 TABLET tablet 1 tab PO PRN PRN (Reason: Jimenez/Aches/Temp >=101) Primary Care Provider: Shraddha Holley Referrals: Shraddha Holley DO [Primary Care Provider, Internal Medicine] - 1 Week if not improving Print Language: Danish Disposition Disposition: Home, Self Care What to do if you have Problems For any increased pain, shortness of breath, bleeding, nausea or vomiting, chestpain, or any unexpected problems, contact your Primary Care Provider. Call [facility] ([phone]) or report to the closest Emergency Room. Call 911 if necessary. 11/19/242058 <Electronically signed by Lorenzo King MD> Cosigner Signature (if applicable): CC: Dr. Shraddha Holley DO ~ Signed [facility] Work Phone: 1(456) 394-638709-22-2025 [facility] [address], [address] [place], [place] [address] OFFICE VISIT Date of Service: 11/16/24 MR#: [id number] Acct: [id number] Name: DIANA LEE Rep #: [id number] : 1970 Provider: SUZAN Jack Age/Sex: 54/F Location: [email or web address] Status: Signed Intake Vital Signs 04/20/23 11:51 [...] (Intermediate, Verified 11/16/24 12:51) heart palpitations Medications ?Medication ?Instructions ?Recorded ?Confirmed ?Type xdnnrrfflu-cwltvmpllbvgf-oqmcotqd 1 tab PO PRN PRN Jimenez/ Aches/Temp 02/25/13 11/16/24 History 50 mg-325 mg-40 mg tablet >=101 amlodipine 2.5 mg tablet mg PO 04/20/23 11/16/24 Hist ory cholecalciferol (vitamin D3) 125 125 mcg PO DAILY 03/2911/16/24 History mcg (5,000 unit) capsule escitalopram oxalate 20 mg tablet mg PO 04/20/2311/16 History estradiol 1 mg tablet mg PO 04/20/23 11/16/24 Hist ory lactobacillus combination no.9 4 4,000 mmu cells PO DA EASTON 04/20/23 11/16/24 History billion cell capsule (Adult 50 Plus Probiotic) levothyroxine 25 mcg tablet mcg PO 04/20/23 11/16/24 H istory lisinopril 40 mg tablet mg PO 04/20/23 11/16/24 Hist ory amoxicillin 875 mg-potassium 1 tab PO BID #20 tabs 11/16/24 Rx clavulanate 125 mg tablet Nurse's Note: Cough, congestion. X 3 weeks Still getting fevers everyday and chest congestion.Taking Mucinex. [facility] Medical History (Updated 04/20/23 @ 14:36 by ANTONIETTA Armstrong) Depression History of gout HTN (hypertension) Hypothyroidism [...] [facility] history of progressively worsening forehead [...] and no acute distress Orientation: alert, awake [facility] Head: normal to inspection Ears: hearing grossly normal bilaterally, external ears normal, TM's normal bilaterally and EAC's normal Nose: external nose normal, nares normal, septum normal and no nasal discharge Face and sinus: normal facial exam, sinuses tender (bilateral frontal) and facesymmetric Mouth: oral mucosae normal, lip normal, tongue normal and oropharynx normal Throat: posterior oropharynx normal, tonsils normal, uvula midline and postnasal drainage (Purulent) Eyes General: appearance normal, both eyes and all related structures Neck Neck: normal visual inspection, full ROM, no meningeal signs, supple and lymphadenopathy (Bilateralanterior cervical lymph node swelling/tender to palpation) Neck mass: No Thyroid: thyroid normal Chest Chest palpation & inspection: normal inspection of the chest Resp Effort & Inspection: normal respiratory effort and able to [...] Plan Assessment and Plan (1) Acute frontal sinusitis, unspecified: Status: Acute (2) Acute bronchitis, unspecified: Status: Acute Plan: Augmentin as prescribed today. Supportive measures as instructed today. Follow-up with PCP in 3 to 5 days should symptoms not improve, sooner should symptoms worsen or anyother concerns develop. Patient states acknowledging understanding all the above. Coding Level of Care Code Off vis,est,level 3 Assessment and Plan Assessment and Plan Medications: New amoxicillin-pot clavulanate 875-125 mg 1 TAB PO BID 20 tabs 0RF 11/16/24 1429 s SUZAN MARES> Date _ Isael Vela Signature: Date (if applicable) CC: ~ [facility]11-30-2024 NoteDischarge Instructions Discharge Summary [address] [place] [address] [id number] 01/25/2024 Patient: DIANA LEE Sex: Female : 1970 Age: 53y Thank you for visiting [facility]. You have been evaluated today by Lucie [...] day for 5 days, dispense 10 tablet. Refills0. Pharmacy: [facility] [id number] [place] [address]. Follow-up: Follow up with your doctor in three days even if well. Call for an appointment. Reason for referral: evaluation and treatment. Summary of care provided to patient and family. Understanding of the discharge instructions verbalized by patient and family. 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 [place] [address] [id number] 01/25/2024 Patient: DIANA LEE Sex: Female : 1970 Age: 53y Thank you for visiting [facility]. You have been evaluated today by Lucie [...] day for 5 days, dispense 10 tablet. Refills0. Pharmacy: [facility] [id number] [place] [address]. 2 of 4 Discharge Instructions Follow-up: Follow [...] it will likely happen again if you takethis same medicine. Your healthcare provider will advise [...] of blood in stool (more content not included)...[facility]11-03-2024 NoteDischarge Instructions Discharge Summary [address] [address] [id number] 12/27/2023 Patient: DIANA LEE Sex: Female : 1970 Age: 53y Thank you for visiting [facility]. You have been evaluated today by Lucie [...] day for 5 days, dispense 10 tablet. Refills0. Pharmacy: [facility] [id number] [place] [address]. Benadryl Allergy 50 mg tablet: Take 1 tablet by mouth every six hours as needed, dispense 20 tablet. Refills 0. Pharmacy: [facility] [id number] [place] [address]. Follow-up: Follow up with your doctor today as scheduled even if well. Reason for referral: evaluation and treatment. 1 of 6 Discharge Instructions Summary of care provided to patient and family. Robyn Milligan-- [place], [place]. Understanding of the discharge instructions verbalized by patient and family. You have been given the following additional information: Angioedema Patient Signature Facility Mortgage Processor Date/Time General Instructions with ExitWriter [place] [id number] [facility] [place] [address] [phone] 12/27/2023 Patient: DIANA LEE Sex: Female : 1970 Age: 53y Thank you for visiting [facility]. You have been evaluated today by Lucie [...] day for 5 days, dispense 10 tablet. Refills0. Pharmacy: [facility] [id number] [place] [address]. Benadryl Allergy 50 mg tablet: Take 1 tablet by mouth every six hours as needed, dispense 20 tablet. Refills 0. Pharmacy: [facility] [id number] [place] [address]. Follow-up: Follow up with your doctor today as scheduled even if well. Reason for referral: evaluation and treatment. Summary of care provided to patient and family. Robyn Srini-- [place], [place]. Understanding of the discharge instructions verbalized by patient and family. ADDITIONAL INFORMATION Angioedema Angioedema (MH-vsu-rm-eh-ASHA-muh) is a sudden appearance of swollen patches (edema) on the skin or mucous membranes. It most often involves the face, lips, mouth, tongue, back of throat, or vocal cords. It may also occur in other places, such as the arms, legs, or genitals. A rash may also appear during the first4 days of this illness. There are different [...] In rare cases, angioedema can be hereditary. Sometimesthe cause may be very clear. However, it's often hard to find a cause. The most common causes of allergic angioedema include: Foods, such as shrimp, shellfish, peanuts, milk products, gluten, and eggs; also colorings, flavorings, and additives Insect bites or stings, from bees, mosquitoes, fleas, or ticks Medicines, such as PHOENIX inhibitors, penicillin medicines, sulfa medicines, , aspirin, and ibuprof (more content not included)...[facility]10-20-2024 NoteDischarge Instructions Discharge Summary [address] [address] [id number] 12/14/2023 [id number] Sex: Female : 1970 Age: 53y Thank you for visiting [facility]. 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 You have been evaluated today by Cole [...] pain or redness in one leg [address]04-30-2024 History of Present illness Narrative* Ngozi Llanes PA-C - 06/25/2023 8:15 AM EDT Subjective Patient ID: Diana Lee is a [...] HER THE MOST RELIEF SHE HASN'T HAD AMIGRAINE SINCE STARTING IT JUST MAKES HER REALLY DROWSY, SHE DIDN'T TAKE HER TIZANIDINE THIS AM SO SHE HAS A VERY MINIMAL HEADACHE THIS AM,NECK IS TIGHT FEELING, PAIN SCORE 3/10, ORT=3, FRANCISCA=14% DEP NO, SMOKING NO Yarely Lozano CMA 06/25/23 8:15 AM Patient is a 53-year-old female. She presents today as a new patient with complaints of neck pain. She has a history of headaches. She has been having neck pain and headaches since high school. Recently she had a headache that was not resolved. She had a for 2 months. She had some optical migraineswith it. She was started on a muscle relaxer and this has gotten better but she still has a lot of neck pain. Worse with looking up. Worse with turning her head. Worse with certain activities. She denies any radicular symptoms. No arm pain. She has intermittent numbness when she is sleeping but themain concern is her neck pain. This affects her ability to get comfortable. This affects her quality of life. This affects her activities. She has done therapy in the past without improvement. 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 She has used a multitude of tpmt-tbc-azlturg medications including anti-inflammatory medications. These once again gave some improvement but not enough. She is currently on the muscle rela xer. This helps her headaches but not the [...] conservative treatments. Therapy did not give any long- term relief. She continues to try to do home exercises but it does not give her any long-term relief. resident care aid did not give any long-term relief. 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 We [...] if necessary. OARRS reviewed. [facility] Work Phone: 1(963) 596-987404-30-2024 Instructions* Patient Instructions* Anca Stratton RN - 06/25/2023 8:15 AM EDT Injection education completed written and verbally. [facility] Work Phone: Evaluation note* Diagnosis Onset Date Resolution Status Tick bite of back acute [facility] Work Phone: Evaluation note* Diagnosis Cervical spondylosis- Primary Cervical spondylosis without myelopathy Cervical pain Cervicalgia Myalgia Unspecified myalgia and myositis [facility] Work Phone: Evaluation noteNo assessment information available [facility] Work Phone: Instructions* Name Dates Details [...] Informa tion Online using Patient Portal and [employer] Apps Indication:Nonsmoker Start:06-Oct-2021 Instruction Type:Patient Education [...] Informa tion Online using Patient Portal and [employer] Apps Indication:History of migraine Start:11-May-2022 Instruction Type:Patient [...] Informa tion Online using Patient Portal and [employer] Apps Indication:Nonsmoker Start:29-Jun-2022 Instruction Type:Patient Education [...] Informa tion Online using Patient Portal and [employer] Apps Indication:Nonsmoker Start:28-Sep-2022 Instruction Type:Patient Education Patient Instructions Indication:Nonsmoker Start:28-Sep-2022 Instruction Type:Provider Instructions for Treatment Patient Instructions Indication:Hypertension, benign Start:10-Aug-2022 Instruction Type:Provider Instructions for Treatment How to Access Health Informa tion Online using Patient Portal and [employer] Apps Indication:Hypertension, benign Start:10-Aug-2022 Instruction Type:Patient Education [...] Internal Medicine; [facility] Work Phone: progress note Author Isael Brown [facility] Services Note Date/Time November 16, 2024 1:12pm [facility] [address], [address] [place] [address] OFFICE VISIT Date of Service: 11/16/24 MR#: [id number] Acct: [id number] Name: DIANA LEE Rep #: [id number] : 1970 Provider: SUZAN Jack Age/Sex: 54/F Location: [facility] Status: Signed Intake Vital Signs 04/20/23 11:51 [...] (Intermediate, Verified 11/16/24 12:51) heart palpitations Medications ?Medication ?Instructions ?Recorded ?Confirmed ?Type txszwmjqiw-jgnrbwfyxkkkn-bljbyjsw 1 tab PO PRN PRN Jimenez/ Aches/Temp 02/25/13 11/16/24 History 50 mg-325 mg-40 mg tablet >=101 amlodipine 2.5 mg tablet mg PO 04/20/23 11/16/24 Hist ory cholecalciferol (vitamin D3) 125 125 mcg PO DAILY 03/2911/16/24 History mcg (5,000 unit) capsule escitalopram oxalate 20 mg tablet mg PO 04/20/2311/16 History estradiol 1 mg tablet mg PO 04/20/23 11/16/24 Hist ory lactobacillus combination no.9 4 4,000 mmu cells PO DA E[place]ON 04/20/23 11/16/24 History billion cell capsule (Adult 50 Plus Probiotic) levothyroxine 25 mcg tablet mcg PO 04/20/23 11/16/24 H istory lisinopril 40 mg tablet mg PO 04/20/23 11/16/24 Hist ory amoxicillin 875 mg-potassium 1 tab PO BID #20 tabs 11/16/24 Rx clavulanate 125 mg tablet Nurse's Note: Cough, congestion. X 3 weeks Still getting fevers everyday and chest congestion.Taking Mucinex. [facility] Medical History (Updated 04/20/23 @ 14:36 by [...] and no acute distress Orientation: alert, awake [facility] Head: normal to inspection Ears: hearing grossly normal bilaterally, external ears normal, TM's normal bilaterally and EAC's normal Nose: external nose normal, nares normal, septum normal and no nasal discharge Face and sinus: normal facial exam, sinuses tender (bilateral frontal) and facesymmetric Mouth: oral mucosae normal, lip normal, tongue normal and oropharynx normal Throat: posterior oropharynx normal, tonsils normal, uvula midline and postnasal drainage (Purulent) Eyes General: appearance normal, both eyes and all related structures Neck Neck: normal visual inspection, full ROM, no meningeal signs, supple and lymphadenopathy (Bilateral anterior cervical lymph node swelling/tender to palpation) Neck mass: No Thyroid: thyroid normal Chest Chest palpation & inspection: normal inspection of the chest Resp Effort & Inspection: normal respiratory effort and able to [...] Plan Assessment and Plan (1) Acute frontal sinusitis, unspecified: Status: Acute (2) Acute bronchitis, unspecified: Status: Acute Plan: Augmentin as prescribed today. Supportive measures as instructed today. Follow-up with PCP in 3 to 5 days should symptoms not improve, sooner should symptoms worsen or any other concerns develop. Patient states acknowledging understanding all the above. Coding Level of Care Code Off vis,est,level 3 Assessment and Plan Assessment and Plan Medications: New amoxicillin-pot clavulanate 875-125 mg 1 TAB PO BID 20 tabs 0RF 11/16/24 0775 <Electronically signed by Isael MARES> Date _ Isael MARES Cosigner Signature: Date (if applicable) CC: ~ [facility] Work Phone: Reason for referral (narrative)* Procedure (Routine) - Pending Review Specialty Diagnoses / Procedures Referred By Lottie groves Referred To Contact Diagnoses Cervical spondylosis Procedures Medial Nerve Branch Block Ngozi Llanes PA-C [address] [place] [address] Referral ID Status Reason Start Date Expiration Date Visits Requested Visits Authorized [id number] Pending Review Perform Procedure 06/25/2023 06/24/2024 1 1 [facility] Work Phone: Reason for referral (narrative)No reason for referral information availableFrank R. [facility] Work Phone: Summary Purpose Family History [...] No February 25 4 5:24pm Power of Delivery Man No February 25 014 5:24pm Advance Directive Response Recorded Date/ Time Do you have a Healthcare Power of Delivery Man? No November 19, 2024 5:52pm Chief Complaint and Reason for Visit Chief Complaint TICK BITE SPINAL STENOSIS HEADACHES Reason for Visit Tick bite of back Chief Complaint Admit Date SINUS CONGESTION, COUGH November 16, 2024 12:45pm general illness November 19, 2024 5:17pm Additional Source Comments INFORMATION SOURCE (unrecogn ized section and content) DATE CREATED AUTHOR 08/20/2017 [facility] ([place]) DATE CREATED AUTHOR AUTHOR'S ORGANIZ ATION 10/14/2018 [facility] DATE CREATED AUTHOR AUTHOR'S ORGANIZ ATION 01/30/2019 [facility] DATE CREATED AUTHOR AUTHOR'S ORGANIZ ATION 06/30/2022 [facility] DATE CREATED AUTHOR AUTHOR'S ORGANIZ ATION 06/26/2023 [facility] DATE CREATED AUTHOR AUTHOR'S ORGANIZ ATION 01/26/2024 [facility] DATE CREATED AUTHOR AUTHOR'S ORGANIZ ATION 12/21/2024 [facility] Care Teams (unrecognized sec tion and content) Team Status: Active Member Role Status Dates Dimitrios Mcpherson NP, GUN FITTER-C Family Provider Active Dr. Shraddha Holley DO Primary Care Provider Active Team Status: Inactive Member Role Status Dates Kirstin Rg , GUN FITTER-C Primary Care Provider, Referring Provider Active Antonette Lockwood , GUN FITTER-C Attending Provider Active Team Status: Inactive Member Role Status Dates Dr. Shraddha Holley DO Primary Care Pr ovider, Attending Provider, Referring Provider Active Horticultural Specialty Grower Relationship Specialty Start Date End Date Dimitrios Jamestonymaurizio, PLASTIC SHEETS FINISHING SUPERVISOR-CNM, PLASTIC SHEETS FINISHING SUPERVISOR-FISH PEDDLER [id number] [id number] PCP - General 08/26/18 Team Status: Active Member Role/Relationship Status Dates Dr. Shraddha Holley DO Primary care physician Active Team Status: Inactive Member Role/Relationship Status Dates Dr. Shraddha Holley DO Primary care physician Active Start: November 16, 2024 End: November 16, 2024 Dr. Shraddha Holley DO Referring Provider Active Start: November 16, 2024 End: November 16, 2024 Isael Brown PA, PA Attending physician Active Start: November 16, 2024 End: November 16, 2024 Team Status: Inactive Member Role/Relationship Status Dates Dr. Shraddha Holley DO Primary care physician Active Start: November 19, 2024 End: November 19, 2024 Dr. Lorenzo King MD Attending physician Active St art: November 19, 2024 End: November 19, 2024 Dr. Lorenzo King MD Emergency Department Physician Active Start: November 19, 2024 End: November 19, 2024 Goals (unrecognized section and content) Goals may be documented in a n alternate sectionGoals may be documented in an alternate sectionGoals may be documented in an alternate section Reason for Visit (unrecogniz ed [...] BE BASED ON THE PRIMARY CLINICAL RECORDS. [facility] [employer] [facility]. provides no warranty or guarantee of the accuracy or completeness of information in this document.
[2025-02-13 19:55] LABS: Anion Gap 12 (5-15); BUN 9 mg/dL (4-19); BUN/Creat Ratio 12.2 RATIO (10-20); Calcium,Total 8.6 mg/dL (7.6-11.0); Carbon Dioxide 25.2 mmol/L (21.0-32.0); Chloride 101 mmol/L (98-108); Estimated Creatinine Clearance 102.67 ml/min (50-250); Glucose 146 mg/dL (70-99); Potassium 3.8 mmol/L (3.3-5.1)
[2025-02-13 20:56] VITALS: BP 142/78; PULSE 98; RESP 18; TEMP 36.6; O2SAT 100
[2025-02-13 21:02] VITALS: BP 133/75; PULSE 73; O2SAT 100
[2025-02-13] MEDS: HYDROcodone Bitartrate/Apap 5/325 Tablet PO (21:04)
== END 2025-02-13 21:09 | disposition home or self-care (01) ==
PROVIDERS: Emergency Provider Emergency Medicine; PCP Internal Medicine; Visit Provider Emergency Medicine
DX: K57.32 Diverticulitis of large intestine without perforation or abscess without bleeding (principal); I10 Essential (primary) hypertension; Z79.899 Other long term (current) drug therapy
CPT/HCPCS: 74177; 80048; 85025; 96361; 96374; 96375; 99284; Q9967; A4216; J2405